=== PATIENT | female | born 1945 | race Caucasian/White ===

== ENCOUNTER → 2023-09-11 | Outpatient (REF) | payer MEDICARE, SELFPAY ==
[2023-09-11 09:44] LABS: Hematocrit 38.5 % (37-47); Hemoglobin 12.3 g/dL (12.0-15.0); Mean Corp Hgb Conc 31.9 g/dL (32-36); Mean Corpuscular Hgb 30.8 pg (27.0-32.0); Mean Corpuscular Volume 96.3 fL (81-99); Platelet Count 386 K/mm3 (150-450); RBC Distribution Width SD 53.2 fl (35.1-43.9); White Blood Count 6.9 K/mm3 (4.4-11.0)
[2023-09-11 10:26] LABS: ALB/GLOB Ratio 0.9 RATIO (0.9-2.4); AST(SGOT) 21 U/L (15-37); Alanine Aminotransfer ALT/SGPT 14 U/L (13-56); Albumin, Serum 3.2 g/dL (3.2-5.0); Alkaline Phosphatase 229 U/L (45-117); Anion Gap 6 (5-15); BUN 22 mg/dL (7-18); Calcium,Total 9.3 mg/dL (8.5-10.1); Chloride 100 mmol/L (98-107); Creatinine, Serum 0.84 mg/dL (0.55-1.02); EST Glomerular Filtration Rate 69 mL/min (>60); Est Glom Filt Rate - Afr Amer 84 mL/min (>60); Globulin 3.5 g/dL (2.2-4.2); Glucose 71 mg/dL (74-106); Potassium 3.5 mmol/L (3.5-5.1); Protein, Total 6.7 g/dL (6.4-8.2); Sodium Level 137 mmol/L (136-145)
== END ==
LOC: OLS.SANC 08:30
PROVIDERS: Visit Provider Internal Medicine
DX: E11.9 Type 2 diabetes mellitus without complications (principal); E03.9 Hypothyroidism, unspecified
CPT/HCPCS: 36415; 80053; 83036; 84443; 85027

== ENCOUNTER → 2023-09-12 | Outpatient (REF) | payer MEDICARE, SELFPAY ==
[2023-09-12 08:50] LABS: Hematocrit 35.3 % (37-47); Hemoglobin 11.5 g/dL (12.0-15.0); Mean Corp Hgb Conc 32.6 g/dL (32-36); Mean Corpuscular Hgb 31.3 pg (27.0-32.0); Mean Corpuscular Volume 96.2 fL (81-99); Platelet Count 343 K/mm3 (150-450); RBC Distribution Width SD 52.2 fl (35.1-43.9); Red Blood Count 3.67 M/mm3 (4.2-5.4); White Blood Count 5.8 K/mm3 (4.4-11.0)
[2023-09-12 09:58] LABS: ALB/GLOB Ratio 0.9 RATIO (0.9-2.4); AST(SGOT) 23 U/L (15-37); Alanine Aminotransfer ALT/SGPT 13 U/L (13-56); Albumin, Serum 2.9 g/dL (3.2-5.0); Alkaline Phosphatase 228 U/L (45-117); Anion Gap 8 (5-15); BUN 22 mg/dL (7-18); BUN/Creat Ratio 27.3 RATIO (10-20); Calcium,Total 8.9 mg/dL (8.5-10.1); Chloride 102 mmol/L (98-107); Creatinine, Serum 0.81 mg/dL (0.55-1.02); EST Glomerular Filtration Rate 73 mL/min (>60); Est Glom Filt Rate - Afr Amer 88 mL/min (>60); Globulin 3.1 g/dL (2.2-4.2); Glucose 36 mg/dL (74-106); Potassium 2.9 mmol/L (3.5-5.1); Sodium Level 139 mmol/L (136-145)
[2023-09-12 10:32] LABS: Hemoglobin A1c 8.1 % (3.8-5.6)
== END ==
LOC: OLS.SANC 05:00
PROVIDERS: Visit Provider Internal Medicine
DX: F03.90 Unspecified dementia, unspecified severity, without behavioral disturbance, psychotic disturbance, mood disturbance, and anxiety (principal); I10 Essential (primary) hypertension; Z79.899 Other long term (current) drug therapy
CPT/HCPCS: 36415; 80053; 83036; 84443; 85027

== ENCOUNTER → 2023-09-14 | Outpatient (REF) | payer MEDICARE, SELFPAY ==
[2023-09-14 08:27] LABS: Hematocrit 39.3 % (37-47); Hemoglobin 12.3 g/dL (12.0-15.0); Mean Corp Hgb Conc 31.3 g/dL (32-36); Mean Corpuscular Hgb 30.4 pg (27.0-32.0); Mean Platelet Vol. 8.8 fl (6.2-12.0); Platelet Count 385 K/mm3 (150-450); RBC Distribution Width CV 15.3 % (11.6-14.6); RBC Distribution Width SD 54.3 fl (35.1-43.9); Red Blood Count 4.05 M/mm3 (4.2-5.4)
[2023-09-14 08:59] LABS: Anion Gap 5 (5-15); BUN 25 mg/dL (7-18); BUN/Creat Ratio 30.6 RATIO (10-20); Calcium,Total 9.4 mg/dL (8.5-10.1); Chloride 104 mmol/L (98-107); Creatinine, Serum 0.82 mg/dL (0.55-1.02); EST Glomerular Filtration Rate 72 mL/min (>60); Est Glom Filt Rate - Afr Amer 87 mL/min (>60); Glucose 30 mg/dL (74-106); Potassium 4.1 mmol/L (3.5-5.1); Sodium Level 139 mmol/L (136-145)
== END ==
LOC: OLS.SANC 05:00
PROVIDERS: Visit Provider Internal Medicine
DX: E11.9 Type 2 diabetes mellitus without complications (principal); E03.9 Hypothyroidism, unspecified
CPT/HCPCS: 36415; 80048; 85027

== ENCOUNTER → 2023-09-20 | Outpatient (REF) | payer MEDICARE, SELFPAY ==
[2023-09-21 08:45] LABS: Bacteria 0 SEEN /hpf (None Seen); Mucous, Urine 0 SEEN /hpf (<or=2+)
[2023-09-21 09:01] LABS: Color, Urine Yellow (Yellow); Glucose, Dipstick 100 mg/dl (Normal); Ketone-Dipstick Negative (Negative); Leukocyte Esterase-Dipstick 25 /ul (Negative); Nitrite-Dipstick Negative (Negative); Occult Blood-Urine 10 /ul (Negative); Protein-Dipstick Negative (Negative); Specific Gravity, Urine 1.015 (1.002-1.030); Urine Bilirubin Dipstick Negative (Negative); Urine Clarity Clear (Clear); Urine Urobilinogen Normal (Normal); Urine pH 6.5 (5.0 - 8.0)
[2023-09-21 09:33] LABS: Red Blood Cells-Urine 0-5 SEEN /hpf (0-5); Squamous Epithelial Cells - UA 0-5 SEEN /hpf (5-10); White Blood Cells 0-5 SEEN /hpf (0-5)
== END ==
LOC: OLS.SANC 14:10
PROVIDERS: Visit Provider Internal Medicine
DX: N39.0 Urinary tract infection, site not specified (principal)
CPT/HCPCS: 81001; 87086; 87088

== ENCOUNTER → 2024-04-18 | Outpatient (REF) | payer MEDICARE, SELFPAY ==
[2024-04-18 09:26] LABS: Potassium 3.7 mmol/L (3.5-5.1)
== END ==
LOC: OLS.SANC 05:00
PROVIDERS: Visit Provider Internal Medicine
DX: E11.9 Type 2 diabetes mellitus without complications (principal); E03.9 Hypothyroidism, unspecified
CPT/HCPCS: 36415; 84132

== ENCOUNTER → 2024-04-29 | Outpatient (REF) | payer MEDICARE, SELFPAY ==
[2024-04-29 09:05] LABS: Hematocrit 35.8 % (37-47); Mean Corp Hgb Conc 30.7 g/dL (32-36); Mean Corpuscular Hgb 30.4 pg (27.0-32.0); Mean Corpuscular Volume 98.9 fL (81-99); Mean Platelet Vol. 9.2 fl (6.2-12.0); Platelet Count 252 K/mm3 (150-450); RBC Distribution Width CV 14.6 % (11.6-14.6); RBC Distribution Width SD 53.2 fl (35.1-43.9); Red Blood Count 3.62 M/mm3 (4.2-5.4); White Blood Count 4.9 K/mm3 (4.4-11.0)
[2024-04-29 09:51] LABS: Anion Gap 7 (5-15); BUN 16 mg/dL (7-18); BUN/Creat Ratio 18.8 RATIO (10-20); Calcium,Total 9.2 mg/dL (8.5-10.1); Chloride 101 mmol/L (98-107); Creatinine, Serum 0.85 mg/dL (0.55-1.02); EST Glomerular Filtration Rate 68 mL/min (>60); Est Glom Filt Rate - Afr Amer 83 mL/min (>60); Glucose 149 mg/dL (74-106); Potassium 3.4 mmol/L (3.5-5.1); Sodium Level 142 mmol/L (136-145)
== END ==
LOC: OLS.SANC 05:00
PROVIDERS: Visit Provider Internal Medicine
DX: E03.9 Hypothyroidism, unspecified (principal); F03.90 Unspecified dementia, unspecified severity, without behavioral disturbance, psychotic disturbance, mood disturbance, and anxiety; E11.9 Type 2 diabetes mellitus without complications
CPT/HCPCS: 36415; 80048; 84443; 85027

== ENCOUNTER → 2024-05-01 | Outpatient (REF) | payer MEDICARE, SELFPAY ==
[2024-05-01 07:34] LABS: Anion Gap 5 (5-15); BUN 23 mg/dL (7-18); BUN/Creat Ratio 28.1 RATIO (10-20); Calcium,Total 8.4 mg/dL (8.5-10.1); Chloride 102 mmol/L (98-107); Creatinine, Serum 0.82 mg/dL (0.55-1.02); EST Glomerular Filtration Rate 72 mL/min (>60); Est Glom Filt Rate - Afr Amer 87 mL/min (>60); Glucose 99 mg/dL (74-106); Potassium 3.3 mmol/L (3.5-5.1); Sodium Level 141 mmol/L (136-145)
== END ==
LOC: OLS.SANC 05:00
DX: E11.9 Type 2 diabetes mellitus without complications (principal); E03.9 Hypothyroidism, unspecified
CPT/HCPCS: 36415; 80048

== ENCOUNTER → 2024-05-05 | Outpatient (REF) | payer MEDICARE, SELFPAY ==
[2024-05-05 08:52] LABS: Anion Gap 7 (5-15); BUN 18 mg/dL (7-18); BUN/Creat Ratio 22.7 RATIO (10-20); Calcium,Total 9.4 mg/dL (8.5-10.1); Chloride 100 mmol/L (98-107); Creatinine, Serum 0.79 mg/dL (0.55-1.02); EST Glomerular Filtration Rate 75 mL/min (>60); Est Glom Filt Rate - Afr Amer 90 mL/min (>60); Glucose 58 mg/dL (74-106); Potassium 3.7 mmol/L (3.5-5.1); Sodium Level 139 mmol/L (136-145)
== END ==
LOC: OLS.SANC 04:00
DX: F03.90 Unspecified dementia, unspecified severity, without behavioral disturbance, psychotic disturbance, mood disturbance, and anxiety (principal); E11.9 Type 2 diabetes mellitus without complications; E03.9 Hypothyroidism, unspecified
CPT/HCPCS: 36415; 80048

== ENCOUNTER → 2024-05-16 | Outpatient (REF) | payer MEDICARE, SELFPAY ==
[2024-05-16 10:53] LABS: T4 Free Direct 1.04 ng/dL (0.76-1.46)
== END ==
LOC: OLS.SANC 05:00
PROVIDERS: Visit Provider Internal Medicine
DX: E11.9 Type 2 diabetes mellitus without complications (principal); E03.9 Hypothyroidism, unspecified
CPT/HCPCS: 36415; 84439; 84443

== ENCOUNTER → 2024-05-23 | Outpatient (REF) | payer MEDICARE, SELFPAY ==
[2024-05-23 08:57] LABS: Hemoglobin A1c 9.5 % (3.8-5.6)
== END ==
LOC: OLS.SANC 05:00
PROVIDERS: Visit Provider Internal Medicine
DX: E11.9 Type 2 diabetes mellitus without complications (principal)
CPT/HCPCS: 36415; 83036

== ENCOUNTER → 2024-06-13 | Outpatient (REF) | payer MEDICARE, SELFPAY ==
[2024-06-13 08:27] LABS: Hematocrit 29.5 % (37-47); Hemoglobin 9.5 g/dL (12.0-15.0); Mean Corp Hgb Conc 32.2 g/dL (32-36); Mean Corpuscular Hgb 30.5 pg (27.0-32.0); Mean Corpuscular Volume 94.9 fL (81-99); Mean Platelet Vol. 9.9 fl (6.2-12.0); Platelet Count 218 K/mm3 (150-450); RBC Distribution Width CV 12.8 % (11.6-14.6); RBC Distribution Width SD 44.7 fl (35.1-43.9); Red Blood Count 3.11 M/mm3 (4.2-5.4)
[2024-06-13 08:47] LABS: Anion Gap 4 (5-15); BUN 19 mg/dL (7-18); BUN/Creat Ratio 25.6 RATIO (10-20); Calcium,Total 8.9 mg/dL (8.5-10.1); Chloride 101 mmol/L (98-107); Creatinine, Serum 0.74 mg/dL (0.55-1.02); EST Glomerular Filtration Rate 80 mL/min (>60); Est Glom Filt Rate - Afr Amer 97 mL/min (>60); Glucose 178 mg/dL (74-106); Potassium 3.3 mmol/L (3.5-5.1); Sodium Level 137 mmol/L (136-145)
== END ==
LOC: OLS.SANC 05:00
DX: N39.0 Urinary tract infection, site not specified (principal); E11.9 Type 2 diabetes mellitus without complications; E03.9 Hypothyroidism, unspecified
CPT/HCPCS: 36415; 80048; 85027

== ENCOUNTER → 2024-06-23 | Outpatient (REF) | payer MEDICARE, SELFPAY ==
[2024-06-23 08:22] LABS: Hematocrit 31.6 % (37-47); Hemoglobin 10.4 g/dL (12.0-15.0); Mean Corp Hgb Conc 32.9 g/dL (32-36); Mean Corpuscular Hgb 30.3 pg (27.0-32.0); Mean Corpuscular Volume 92.1 fL (81-99); Mean Platelet Vol. 9.5 fl (6.2-12.0); Platelet Count 256 K/mm3 (150-450); RBC Distribution Width CV 13.9 % (11.6-14.6); RBC Distribution Width SD 46.9 fl (35.1-43.9); Red Blood Count 3.43 M/mm3 (4.2-5.4); White Blood Count 5.5 K/mm3 (4.4-11.0)
[2024-06-23 08:34] LABS: Anion Gap 4 (5-15); BUN 11 mg/dL (7-18); BUN/Creat Ratio 19.1 RATIO (10-20); Chloride 102 mmol/L (98-107); Creatinine, Serum 0.58 mg/dL (0.55-1.02); EST Glomerular Filtration Rate 108 mL/min (>60); Est Glom Filt Rate - Afr Amer 130 mL/min (>60); Glucose 203 mg/dL (74-106); Potassium 3.8 mmol/L (3.5-5.1); Sodium Level 137 mmol/L (136-145)
== END ==
LOC: OLS.SANC 05:00
PROVIDERS: Visit Provider Internal Medicine
DX: E11.9 Type 2 diabetes mellitus without complications (principal); E03.9 Hypothyroidism, unspecified
CPT/HCPCS: 36415; 80048; 85027

== ENCOUNTER → 2024-08-01 | Outpatient (REF) | payer MEDICARE, SELFPAY ==
[2024-08-01 08:25] LABS: Hematocrit 28.7 % (37-47); Hemoglobin 9.3 g/dL (12.0-15.0); Mean Corp Hgb Conc 32.4 g/dL (32-36); Mean Corpuscular Volume 89.4 fL (81-99); Mean Platelet Vol. 9.3 fl (6.2-12.0); Platelet Count 291 K/mm3 (150-450); RBC Distribution Width CV 14.2 % (11.6-14.6); RBC Distribution Width SD 46.5 fl (35.1-43.9); Red Blood Count 3.21 M/mm3 (4.2-5.4); White Blood Count 4.3 K/mm3 (4.4-11.0)
[2024-08-01 08:38] LABS: Anion Gap 3 (5-15); BUN 18 mg/dL (7-18); Calcium,Total 8.9 mg/dL (8.5-10.1); Chloride 100 mmol/L (98-107); Creatinine, Serum 0.72 mg/dL (0.55-1.02); EST Glomerular Filtration Rate 83 mL/min (>60); Est Glom Filt Rate - Afr Amer 101 mL/min (>60); Glucose 77 mg/dL (74-106); Potassium 3.3 mmol/L (3.5-5.1); Sodium Level 138 mmol/L (136-145)
== END ==
LOC: OLS.SANC 05:00
DX: F03.90 Unspecified dementia, unspecified severity, without behavioral disturbance, psychotic disturbance, mood disturbance, and anxiety (principal); E11.9 Type 2 diabetes mellitus without complications; I10 Essential (primary) hypertension
CPT/HCPCS: 36415; 80048; 85027

== ENCOUNTER → 2024-08-04 | Outpatient (REF) | payer MEDICARE, SELFPAY ==
[2024-08-04 08:11] LABS: Mucous, Urine 0 SEEN /hpf (<or=2+)
[2024-08-04 08:37] LABS: Color, Urine Yellow (Yellow); Glucose, Dipstick 1000 mg/dl (Normal); Ketone-Dipstick Negative (Negative); Leukocyte Esterase-Dipstick 100 /ul (Negative); Nitrite-Dipstick Negative (Negative); Occult Blood-Urine 10 /ul (Negative); Protein-Dipstick 15 mg/dl (Negative); Urine Bilirubin Dipstick Negative (Negative); Urine Clarity Sl. Cloudy (Clear); Urine Urobilinogen Normal (Normal)
[2024-08-04 08:45] LABS: Red Blood Cells-Urine 0-5 SEEN /hpf (0-5); Squamous Epithelial Cells - UA 0-5 SEEN /hpf (5-10); White Blood Cells 10-25 SEEN /hpf (0-5)
[2024-08-04 08:46] LABS: Bacteria 3+ /hpf (None Seen)
== END ==
LOC: OLS.SANC 03:30
DX: R33.9 Retention of urine, unspecified (principal); R41.82 Altered mental status, unspecified
CPT/HCPCS: 81001; 87077; 87086; 87088; 87186

== ENCOUNTER → 2024-08-06 | Outpatient (REF) | payer MEDICARE, SELFPAY ==
[2024-08-06 07:57] LABS: Ferritin 29 ng/mL (8-252); Iron 50 ug/dL (50-170)
[2024-08-06 09:49] LABS: Vitamin B12 157 pg/mL (211-911)
== END ==
LOC: OLS.SANC 05:00
PROVIDERS: Visit Provider Internal Medicine
DX: F03.90 Unspecified dementia, unspecified severity, without behavioral disturbance, psychotic disturbance, mood disturbance, and anxiety (principal); E11.9 Type 2 diabetes mellitus without complications; E03.9 Hypothyroidism, unspecified
CPT/HCPCS: 36415; 82607; 82728; 82746; 83540

== ENCOUNTER → 2024-08-08 05:00 | Outpatient (REF) | payer MEDICARE, SELFPAY ==
[2024-08-08 08:25] LABS: Hematocrit 30.6 % (37-47); Hemoglobin 9.4 g/dL (12.0-15.0); Mean Corp Hgb Conc 30.7 g/dL (32-36); Mean Corpuscular Hgb 27.6 pg (27.0-32.0); Mean Corpuscular Volume 89.7 fL (81-99); Mean Platelet Vol. 9.1 fl (6.2-12.0); Platelet Count 272 K/mm3 (150-450); RBC Distribution Width CV 14.3 % (11.6-14.6); RBC Distribution Width SD 46.5 fl (35.1-43.9); Red Blood Count 3.41 M/mm3 (4.2-5.4); White Blood Count 4.1 K/mm3 (4.4-11.0)
== END ==
LOC: OLS.SANC 05:00
DX: Z79.899 Other long term (current) drug therapy (principal)
CPT/HCPCS: 36415; 85027

== ENCOUNTER → 2024-08-09 | Outpatient (REF) | payer MEDICARE, SELFPAY | LOC: OLS.SANC 13:30 | DX: Z79.899 Other long term (current) drug therapy (principal) | CPT/HCPCS: 82274 ==

== ENCOUNTER → 2024-08-13 | Outpatient (REF) | payer MEDICARE, SELFPAY ==
[2024-08-13 09:13] LABS: Anion Gap 6 (5-15); BUN 14 mg/dL (7-18); BUN/Creat Ratio 23.9 RATIO (10-20); Chloride 101 mmol/L (98-107); Creatinine, Serum 0.59 mg/dL (0.55-1.02); EST Glomerular Filtration Rate 105 mL/min (>60); Est Glom Filt Rate - Afr Amer 127 mL/min (>60); Glucose 146 mg/dL (74-106); Potassium 3.6 mmol/L (3.5-5.1); Sodium Level 141 mmol/L (136-145)
== END ==
LOC: OLS.SANC 04:00
DX: E11.9 Type 2 diabetes mellitus without complications (principal)
CPT/HCPCS: 36415; 80048; 83036

== ENCOUNTER → 2024-10-08 | Outpatient (REF) | payer MEDICARE, SELFPAY | LOC: OLS.SANC 13:20 | DX: R19.7 Diarrhea, unspecified (principal) | CPT/HCPCS: 87493 ==

== ENCOUNTER → 2024-11-14 | Outpatient (REF) | payer MEDICARE, SELFPAY ==
[2024-11-14 09:05] LABS: Hemoglobin A1c 7.5 % (<=5.6)
[2024-11-14 09:11] LABS: Anion Gap 10 (5-15); BUN 17 mg/dL (4-19); BUN/Creat Ratio 23.7 RATIO (10-20); Calcium,Total 8.7 mg/dL (7.6-11.0); Carbon Dioxide 28.6 mmol/L (21.0-32.0); Chloride 101 mmol/L (98-108); Creatinine, Serum 0.73 mg/dL (0.70-1.20); EST Glomerular Filtration Rate 84 (>60); Glucose 125 mg/dL (70-99); Potassium 3.7 mmol/L (3.3-5.1); Sodium Level 140 mmol/L (133-145)
== END ==
LOC: OLS.SANC 05:00
DX: F03.90 Unspecified dementia, unspecified severity, without behavioral disturbance, psychotic disturbance, mood disturbance, and anxiety (principal); E11.9 Type 2 diabetes mellitus without complications; E78.5 Hyperlipidemia, unspecified; E03.9 Hypothyroidism, unspecified
CPT/HCPCS: 36415; 80048; 83036; 84443

== ENCOUNTER → 2024-11-20 | Outpatient (REF) | payer MEDICARE, SELFPAY ==
[2024-11-20 09:12] LABS: Hemoglobin A1c 7.6 % (<=5.6)
== END ==
LOC: OLS.SANC 05:00
PROVIDERS: Visit Provider Internal Medicine
DX: E11.9 Type 2 diabetes mellitus without complications (principal); E03.9 Hypothyroidism, unspecified
CPT/HCPCS: 36415; 83036

== ENCOUNTER → 2024-12-03 05:00 | Outpatient (REF) | payer MEDICARE, SELFPAY ==
[2024-12-03 09:58] LABS: Hematocrit 29.8 % (37-47); Hemoglobin 9.1 g/dL (12.0-15.0); Mean Corp Hgb Conc 30.5 g/dL (32-36); Mean Corpuscular Hgb 28.6 pg (27.0-32.0); Mean Corpuscular Volume 93.7 fL (81-99); Mean Platelet Vol. 9.4 fl (6.2-12.0); Platelet Count 222 K/mm3 (150-450); RBC Distribution Width CV 15.4 % (11.6-14.6); RBC Distribution Width SD 53.3 fl (35.1-43.9); Red Blood Count 3.18 M/mm3 (4.2-5.4); White Blood Count 3.7 K/mm3 (4.4-11.0)
[2024-12-03 10:14] LABS: Anion Gap 11 (5-15); BUN 22 mg/dL (4-19); BUN/Creat Ratio 26.7 RATIO (10-20); Calcium,Total 9.2 mg/dL (7.6-11.0); Carbon Dioxide 28.4 mmol/L (21.0-32.0); Chloride 98 mmol/L (98-108); Creatinine, Serum 0.82 mg/dL (0.70-1.20); EST Glomerular Filtration Rate 73 (>60); Glucose 165 mg/dL (70-99); Potassium 3.8 mmol/L (3.3-5.1); Sodium Level 137 mmol/L (133-145)
== END ==
LOC: OLS.SANC 05:00
PROVIDERS: Visit Provider Internal Medicine
DX: E11.9 Type 2 diabetes mellitus without complications (principal); E78.5 Hyperlipidemia, unspecified; E03.9 Hypothyroidism, unspecified
CPT/HCPCS: 36415; 80048; 85027

== ENCOUNTER → 2025-01-26 04:00 | Outpatient (REF) | payer MEDICARE, SELFPAY ==
[2025-01-26 09:33] LABS: Anion Gap 8 (5-15); BUN 19 mg/dL (4-19); BUN/Creat Ratio 24.5 RATIO (10-20); Calcium,Total 8.6 mg/dL (7.6-11.0); Carbon Dioxide 31.8 mmol/L (21.0-32.0); Chloride 101 mmol/L (98-108); Glucose 129 mg/dL (70-99); Potassium 3.7 mmol/L (3.3-5.1); Pro- Brain NATRIURETIC PEPTIDE 479 pg/mL (<=1800)
== END ==
LOC: OLS.SANC 04:00
DX: E11.9 Type 2 diabetes mellitus without complications (principal); E03.9 Hypothyroidism, unspecified; R48.8 Other symbolic dysfunctions
CPT/HCPCS: 36415; 80048; 83880

== ENCOUNTER → 2025-02-20 05:00 | Outpatient (REF) | payer MEDICARE, SELFPAY ==
--- OUTSIDE RECORDS SUMMARY | 2025-02-20 04:29 | XMS RPT_ITS | CCD ---
Author Organization [facility] Care Team Providers Care Head Grower Name Role Phone Unavailable Primary Care Provider UnavailIsaiah Kebede DO Primary Care Provider GILBERT HOWELL Attending Unavailable ELIA ANDRES Admitting Unavailable NEERU STEEL Attending Unavailable ALEXANDRA LOWE Consulting Unavailable ISAIAH ROLDAN Primary Care Unavailable BHARGAV ODMINGUEZ Attending Unavailable BHARGAV DOMINGUEZ Referring Unavailable ISAIAH ROLDAN Primary Care Unavailable ISAIAH ROLDAN Primary Care Unavailable ISAIAH GARDNER Admitting Unavailable BRANDON RUSH Attending Unavailable FRANKLIN IBARRA Consulting Unavailable KATIA, LALITA Referring Unavailable ISAIAH ROLDAN Primary Care Unavailable BRANDON RUSH Referring Unavailable ISAIAH ROLDAN Primary Care Unavailable Unavailable Primary Care Provider UnavailMARI Gomes Admitting Unavailable TIEN HAIRSTON Attending Unavailable ISAIAH ROLDAN Primary Care Unavailable SANDI TOTH Attending Unavailable Marina FLANNERY, Dr. Nj Attending Provider Unava Patricio Rossi Attending Provider UnavailDr. Ondina Acosta MD Referring Provider Unava ilPatricio Shearer Attending Provider Unavailab Edward FLANNERY, Dr. N[place] Attending Provider Gracielava Dr. Ondina Cordon MD Referring Provider Gracielava Cynthia Ramos MD Attending Provider Cynthia Uribe MD Referring Provider Unava hiable [facility] [place] Attending Rani oshea [facility] [place] Attending Ondina Isidro Attending Unavailable Ondina Hein Referring Unavailable Patricio Foy Attending Unavailable Cynthia Houston Attending Unavail able Cynthia Houston Referring Unavail able Katsaros GERONIMO, Patricio Attending Unavailable Gray OLS, Ondina Attending Unavailable Gray OLS, Ondina Attending Unavailable Katsaros OLS, Patricio Attending Unavailable Katsaros OLS, Patricio Attending Unavailable Gray OLS, Ondina Attending Unavailable Katsaros OLS, Patricio Attending Unavailable Gray OLS, Ondina Attending Unavailable Katsaros OLS, Patricio Attending Unavailable [place] OLS, Cynthia Attending Unavail able [place] OLS, Cynthia Referring Unavail able Gray OLS, Ondina Attending Unavailable Gray OLS, Ondina Referring Unavailable Gray OLS, Ondina Attending Unavailable Katsaros, Patricio Attending Unavailable Katsaros, Patricio Referring Unavailable [facility] [place] Attending Rani MELTON, Cynthia Attending Unavail able Katsaros OLS, Patricio Attending Unavailable Katsaros OLS, Patricoi Attending Unavailable Medications Current Medications Medication Drug Class(es) Dates Sig (Normalized) Sig (Original) amoxicillin 500 mg oral capsule (4 sources) Penicillin-class Antibacterial Start: 06-20-2024 End: 06-26-2024 take 1 capsule by mouth every eight hours amoxicillin (Amoxil) 500 MG capsule Take 1 capsule (500 mg) by mouth every 8 hours for 6 days. 18 capsule 06/20/2024 06/26/2024 Active Start: 06-16-2024 End: 06-20-2024 take 1 dose by mouth three times daily 500 mg, Oral, Every 8 hours scheduled (3 times per day), First dose on Sun06/16/24 at 1400, For 11 days, Suspected Indication (Select all that apply): Bloodstream Infection aspirin 81 mg chewable tablet (5 sources) Platelet Aggregation Inhibitor, Nonsteroidal Anti-inflammatory Drug Start: 04-17-2024 take 1 tablet by mouth once daily aspirin 81 mg chewable tablet 1 tablet by ORAL/FEEDING TUBE route once daily. Patient should start on April 17, 2024. 0 04/17/2024 Active take 1 tablet by mouth once jonathan y aspirin 81 MG EC tablet Take 81 mg by mouth daily. Active benzonatate 100 mg oral capsule (4 sources) Non-narcotic Antitussive Start: 06-14-2024 End: 06-27-2024 take 1 capsule by mouth three times daily as needed for cough benzonatate (Tessalon) 100 MG capsule Take 1 capsule (100 mg) by mouth 3 times daily as needed for cough for up to 7 days. Do not crush or chew. 20 capsule 06/20/2024 06/27/2024 Active bisacodyl 5 mg delayed release oral tablet (4 sources) Stimulant Laxative End: 06-20-2024 take 10 mg rectal route every twenty-four hours as needed for constipation bisacodyl (Dulcolax) 10 MG suppository Insert 10 mg into the rectum Daily as needed for constipation. 06/20/2024 Discontinued (Stop taking at discharge) take 1 tablet by marciano th every twenty-four hours as needed for constipation bisacodyl (Dulcolax) 5 MG EC tablet Take 5 mg by mouth Daily as needed for constipation. Do not crush, chew, or split. Active bumetanide 1 mg oral tablet (7 sources) Loop Diuretic Start: 06-08-2023 take 1 tablet by mouth once daily bumetanide (BUMEX) 1 mg tablet Take 1 mg by mouth once daily. 06/08/2023 Active clopidogrel 75 mg oral tablet (5 sources) P2Y12 Platelet Inhibitor Start: 04-17-2024 take 1 tablet by mouth once daily clopidogrel (PLAVIX) 75 mg tablet 1 tablet by ORAL/FEEDING TUBE route once daily. Patient should start on April 17, 2024. 0 04/17/2024 Active take 1 tablet by mouth once jonathan y clopidogrel (Plavix) 75 MG tablet Take 75 mg by mouth daily. Active dexamethasone 6 mg oral tablet (6 sources) Corticosteroid Start: 06-14-2024 End: 06-23-2024 take 1 tablet by mouth once daily dexAMETHasone (Decadron) 6 MG tablet Take 1 tablet (6 mg) by mouth daily for 2 doses. 2 tablet 06/21/2024 06/23/2024 Active Start: 06-13-2024 End: 06-13-2024 6 mg, IntraVENous, Once, On Sun06/13/24 at 2110, For 1 dose FREESTYLE MARIA EUGENIA 3 READER mis c (5 sources) Start: 12-10-2023 FREESTYLE LIBR E 3 READER misc 12/10/2023 Active Start: 12-10-2023 FREESTYLE LIBR E 3 READER misc FREESTYLE MARIA EUGENIA 3 SENSOR dev i (5 sources) Start: 12-04-2023 FREESTYLE LIBR E 3 SENSOR yuniel 12/04/2023 Active Start: 12-04-2023 FREESTYLE LIBR E 3 SENSOR yuniel 1.5 ml insulin glargine 300 unt/ml pen injector (13 sources) Insulin Analog Start: 06-20-2024 End: 07-20-2024 inject 25 [IU] by subcutaneous injection once daily insulin glargine (Toujeo SoloStar) 300 UNIT/ML injection Inject 25 Units under the skin Nightly. 3 mL 06/20/2024 07/20/2024 Active Start: 06-15-2024 End: 06-20-2024 inject 30 [IU] by subcutaneous injection once daily 30 Units, SubCUTAneous, Daily, First dose (after last modification) on 06/15/24 at 0900 Start: 06-14-2024 End: 06-15-2024 inject 25 [IU] by subcutaneous injection once daily 25 Units, SubCUTAneous, Daily, First dose on 06/14/24 at 0900 Start: 06-21-2023 inject 30 [IU] by kennedy bcutaneous injection twice daily TOUJEO SOLOSTAR U-300 INSULIN 300 unit/mL (1.5 mL) Inject 30 Units subcutaneously two times a day. 06/21/2023 Active End: 06-20-2024 inject 25 [IU] by subcutaneous injection once daily Insulin Glargine (TOUJEO SOLOSTAR SC) Inject 25 Units under the skin daily. 06/20/2024 Discontinued magnesium hydroxide 160 mg/ml oral suspension (2 sources) take 30 mL by mouth every twenty-four hours as needed for constipation magnesium hydroxide (Milk of Magnesia) 800 MG/5ML suspension Take 30 mL by mouth Daily as needed for constipation. Active midodrine hydrochloride 2.5 mg oral tablet (7 sources) alpha-Adrenergi c Agonist Start: 04-16-20 take 1 tablet by mouth three times daily midodrine (Proamatine) 2.5 MG tablet Take 2.5 mg by mouth 3 times a day. 04/16/2024 Active Start: 04-16-2024 take 1 tablet by marciano th every eight hours midodrine (PROAMATINE) 2.5 mg tablet Take 1 tablet by mouth every 8 hours. 04/16/2024 Active Start: 09-07-2023 take 1 tablet by marciano th every eight hours midodrine (PROAMITINE) 5 mg tablet Take 1 tablet by mouth every 8 hours. 60 tablet 09/07/2023 Active ondansetron 4 mg disintegrating oral tablet (4 sources) Serotonin-3 Receptor Antagonist Start: 06-20-2024 End: 06-27-2024 take 1 tablet by mouth every eight hours as needed for nausea and vomiting ondansetron ODT (Zofran-ODT) 4 MG disintegrating tablet Take 1 tablet (4 mg) by mouth every 8 hours as needed for nausea or vomiting for up to 7 days. 20 tablet 06/20/2024 06/27/2024 Active take 1 tablet by marciano th every eight hours as needed for nausea and vomiting ondansetron (Zofran) 4 MG tablet Take 4 mg by mouth every 8 hours as needed for nausea or vomiting. Active pioglitazone 30 mg oral tablet (7 sources) Peroxisome Proliferator Receptor alpha Agonist, Peroxisome Proliferator Receptor gamma Agonist, Thiazolidinedione Start: 07-26-2023 take 1 tablet by mouth once daily pioglitazone (ACTOS) 30 mg tablet Take 30 mg by mouth once daily. 07/26/2023 Active vitamin b12 1 mg oral tablet (3 sources) Vitamin B12 Start: 04-16-2024 take 1 tablet by mouth every other day cyanocobalamin (VITAMIN B-12) 1,000 mcg tab Take 1 tablet by mouth every other day. 0 04/16/2024 Active Completed/Discontinued Medications Medication Drug Class(es) Dates Sig (Normalized) Sig (Original) Acetaminophen (11 sources) Start: 06-14-2024 End: 06-20-2024 take 1 tablet by mouth every six hours as needed for pain and fever acetaminophen (Tylenol) tablet 650 mg Start: 06-13-2024 End: 06-13-2024 650 mg, Oral, Once, On Sun08/13/23 at 1835, For 1 dose, Maximum dose of acetaminophen is 4000 mg from all sources in 24 hours. Start: 04-16-2024 take 1 tablet by marciano th every four hours as needed acetaminophen (TYLENOL) 325 mg tablet Take 1 tablet by mouth every 4 hours as needed for pain or fever (specify temp.). 0 04/16/2024 Active Start: 09-07-2023 take 2 tablets by mo [facility] every eight hours acetaminophen (TYLENOL) 500 mg tablet Take 2 tablets by mouth every 8 hours. 30 tablet 09/07/2023 Active take 2 tablets by mo [facility] every six hours as needed for pain acetaminophen (Tylenol) 325 MG tablet Take 650 mg by mouth every 6 hours as needed for mild pain (1-3). Active atorvastatin 40 mg oral tablet (7 sources) HMG-CoA Reductase Inhibitor Start: 06-14-2024 End: 06-20-2024 take 40 mg by mouth once daily 40 mg, Oral, Daily, First dose on 06/14/24 at 0900 Start: 04-16-2024 take 1 tablet by marciano once daily at bedtime atorvastatin (LIPITOR) 40 mg tablet 1 tablet by ORAL/FEEDING TUBE route daily at bedtime. 0 04/16/2024 Active 24 hr buPROPion hydrochloride 150 mg extended release oral tablet (9 sources) Aminoketone Start: 07-19-2023 End: 06-20-2024 take 150 mg by mouth once daily 150 mg, Oral, Daily, First dose on 06/14/24 at 0900, Do not crush, chew, or split. cefTRIAXone (Rocephin) 2,000 mg in sodium chloride 0.9 % 50 mL IVPB Mini-Bag Plus (2 sources) Start: 06-13-2024 End: 06-13-2024 2,000 mg, IntraVENous, at 100 mL/hr, Administer over 30 Minutes, Once, On Sun06/13/24 at 1930, For 1 dose, Mini-Bag Plus bag, Suspected Indication (Select all that apply): Urinary Tract Infection cholecalciferol 9.52 unt/ml / glucose 357 mg/ml oral gel (2 sources) Vitamin D Start: 06-14-2024 End: 06-20-2024 0.4 ml enoxaparin sodium 100 mg/ml prefilled syringe (2 sources) Low Molecular Weight Heparin Start: 06-14-2024 End: 06-20-2024 inject 40 mg by subcutaneous injection every twenty-four hours 40 mg, SubCUTAneous, Every 24 hours scheduled (Daily), First dose on 06/14/24 at 0900, Indication of Use: Prophylaxis-DVT/PE , Indications: Prophylaxis of Venous Thromboembolism glucagon (rdna) 1 mg injection (4 sources) Antihypoglycemic Agent Start: 06-14-2024 End: 06-20-2024 Glucagon 1 MG/0. 2ML solution Inject under the skin. Active 150 ml glucose 50 mg/ml inje ction (6 sources) Start: 06-14-2024 End: 06-20-2024 Start: 06-14-2024 End: 06-20-2024 glucose (Glutose ) 40 % gel oral gel Take 15 g by mouth every 15 minutes as needed for low blood sugar. Active insulin lispro 100 unt/ml injectable solution (5 sources) Insulin Analog Start: 06-14-2024 End: 06-14-2024 inject 10 [IU] by subcutaneous injection once 10 Units, SubCUTAneous, Once, On 06/14/24 at 1800, For 1 dose Start: 04-16-2024 insulin lispro 100 unit/mL injection ADMINISTER CORRECTIONAL INSULIN REGARDLESS OF MEAL OR NUTRITION INTAKE Scale 1 If Blood Glucose (mg/dL) is: Less than 110 Give 0 units 111-150 Give 0 units 151-200 Give 1 unit 201-250 Give 2 units 251-300 Give 3 units 301-350 Give 4 units 351-400 Give 5 units Greater than 400 Give 5 units and Notify Provider Notify provider if 2 consecutive blood glucose values in the previous 24 hours are greater than 250 mg/dL and there have been no changes to the insulin regimen in the previous 24 hours. 0 04/16/2024 Active Insulin Lispro (Humalog) injection 0-18 Units (2 sources) Start: 06-15-2024 End: 06-20-2024 Insulin Lispro (Humalog) injection 0-18 Units iopamidol (Isovue-370) 76 % injection 75 mL (2 sources) Start: 06-13-2024 End: 06-13-2024 take 75 mL intravenously once as needed 75 mL, IntraVENous, IMG once PRN, contrast, Starting on Sun06/13/24 at 1827, For 1 dose levothyroxine (9 sources) l-Thyrox ine Start: 06-14-2024 End: 06-20-2024 take 175 ug by mouth once daily before breakfast 175 mcg, Oral, Daily before breakfast, First dose on 06/14/24 at 0615, Tube feeding (TF) interaction, obtain physician order to manage, recommend holding TF for 30 minutes before and after dose. Start: 04-17-2024 take 1 tablet by marciano th once daily before breakfast levothyroxine (SYNTHROID) 175 mcg tablet Take 1 tablet by mouth daily before breakfast. Patient should start on April 17, 2024. 04/17/2024 Active Start: 06-20-2023 take 1 tablet by marciano th once daily before breakfast levothyroxine (SYNTHROID) 150 mcg tablet Take 150 mcg by mouth daily before breakfast. 06/20/2023 Active ondansetron ODT (Zofran-ODT) disintegrating tablet 4 mg (2 sources) Start: 06-14-2024 End: 06-20-2024 take 1 tablet by mouth every eight hours as needed for nausea and vomiting ondansetron ODT (Zofran-ODT) disintegrating tablet 4 mg piperacillin-tazoba ctam (Zosyn) 3,375 mg in sodium chloride 0.9 % 50 mL IVPB Mini-Bag Plus (2 sources) Start: 06-14-2024 End: 06-16-2024 take 3375 mg intravenously every eight hours polyethylene glycol 3350 37062 mg powder for oral solution (2 sources) Osmotic Laxative Start: 06-14-2024 End: 06-20-2024 take 17 g by mouth every twenty-four hours as needed for constipation 17 g, Oral, Daily PRN, constipation, Starting on 06/14/24 at 0111, 1st line for treatment of constipation - give scheduled if no bowel movement in past 24 hours. promethazine hydrochloride 25 mg rectal suppository (2 sources) Phenothiazine End: 06-20-2024 take 25 mg rectal route every eight hours as needed for nausea and vomiting promethazine (Phenergan) 25 MG suppository Insert 25 mg into the rectum every 8 hours as needed for nausea or vomiting. 06/20/2024 Discontinued (Stop taking at discharge) 1000 ml sodium chloride 9 mg/ml injection (6 sources) Start: 06-14-2024 End: 06-20-2024 take 150 mL intravenously every hour 150 mL/hr, IntraVENous, Continuous, Starting on 06/14/24 at 0145 Start: 06-13-2024 End: 06-20-2024 30 mL, IntraVENous, at 180 m L/hr, Administer over 10 Minutes, PRN, for Remdesivir line flush, Starting on Sun06/13/24 at 2105, For 1 dose Start: 06-13-2024 End: 06-13-2024 1,000 mL, IntraVENous, at 1, 000 mL/hr, Administer over 1 Hours, Once, On Sun06/13/24 at 1835, For 1 dose 24 hr venlafaxine 37.5 mg extended release oral capsule (9 sources) Serotonin and Norepinephrine Reuptake Inhibitor Start: 06-08-2023 End: 06-20-2024 take 1 capsule by mouth once daily 37.5 mg, Oral, Daily, First dose on Sun06/14/24 at 0900, Capsule may be swallowed whole, or may be opened and its contents sprinkled on applesauce if consumed immediately without chewing. Do not crush or chew. Problems Active Problems Problem Classification Problem Date Documented Date Episodic/Chronic Acute cerebrovascular disease (4 sources) Cerebrovascular accident; Translations: [Other cerebral infarction due to occlusion or stenosis of small artery] Onset: 04-15-2024 04-15-2024 Chronic Blindness and vision defects (3 sources) Visual impairment; Translations: [Unqualified visual loss, left eye, normal vision right eye] Onset: 04-15-2024 04-15-2024 Chronic Chronic kidney disease (1 source) Chronic kidney disease, stage 1; Translations: [Stage 1 chronic kidney disease] Onset: 08-31-2023 Chronic Delirium, dementia, and amnestic and other cognitive disorders (4 sources) Moderate dementia; Translations: [Moderate dementia] Onset: 04-15-2024 04-15-2024 Chronic Diabetes mellitus with complications (1 source) Type 2 diabetes mellitus with hyperglycemia; Translations: [Hyperglycemia due to diabetes mellitus (HCC)] Onset: 04-12-2024 Chronic Diabetes mellitus without complication (2 sources) Type 2 diabetes mellitus without complications; Translations: [Type 2 diabetes mellitus without complications] Onset: 12-12-2024 Chronic Diabetes mellitus without complication (3 sources) Hyperglycemia; Translations: [Hyperglycemia, unspecified] Onset: 04-12-2024 04-12-2024 Episodic Disorders of lipid metabolism (2 sources) Hyperlipidemia, unspecified; Translations: [Hyperlipidemia, unspecified] Onset: 12-12-2024 Chronic E Codes: Fall (2 sources) Unspecified fall, initial encounter; Translations: [Fall on same level, unspecified, initial encounter] Onset: 08-31-2023 Episodic Fever of unknown origin (4 sources) Fever; Translations: [Fever, unspecified] Onset: 06-13-2024 06-13-2024 Episodic Fluid and electrolyte disorders (1 source) Hypokalemia; Translations: [Hypokalemia] Onset: 04-12-2024 Episodic Nausea and vomiting (4 sources) Nausea, vomiting and diarrhea; Translations: [Nausea with vomiting, unspecified] Onset: 06-13-2024 06-13-2024 Episodic Nutritional deficiencies (5 sources) Deficiency of macronutrients; Translations: [Unspecified severe protein-calorie malnutrition] Onset: 09-04-2023 09-06-2023 Chronic Other endocrine disorders (1 source) Hypoglycemia, unspecified; Translations: [Hypoglycemia] Onset: 07-15-2023 Chronic Other lower respiratory disease (2 sources) Chest pain on breathing; Translations: [Chest pain on breathing] 12-13-2023 Episodic Other nervous system disorders (3 sources) Polyneuropathy; Translations: [Polyneuropathy, unspecified] Onset: 04-15-2024 04-15-2024 Chronic Other nervous system disorders (3 sources) Abnormal gait; Translations: [Unspecified abnormalities of gait and mobility] Onset: 04-15-2024 04-15-2024 Episodic Other nervous system disorders (1 source) Other symbolic dysfunctions; Translations: [Other symbolic dysfunctions] Onset: 02-16-2025 Episodic Thyroid disorders (6 sources) Hypothyroidism; Translations: [Hypothyroidism, unspecified] Onset: 04-15-2024 04-15-2024 Chronic Viral infection (6 sources) Disease caused by 2019-nCoV; Translations: [COVID-19] Onset: 06-13-2024 06-13-2024 Episodic Viral infection (2 sources) COVID-19; Translations: [COVID-19] Onset: 06-13-2024 Past or Other Problems Problem Classification Problem Date Documented Da te Episodic/Chronic Malaise and fatigue (5 sources) Asthenia; Translations: [Weakness] Onset: 08-31-2023 09-06-2023 Episodic Nonspecific chest pain (2 sources) Musculoskeletal chest pain; Translations: [Other chest pain] Onset: 12-13-2023 12-13-2023 Episodic Other aftercare (2 sources) Other fdc (current) drug therapy; Translations: [Other fdc (current) drug therapy] Onset: 08-20-2024 Episodic Other gastrointestinal disorders (3 sources) Diarrhea, unspecified; Translations: [Diarrhea, unspecified] Onset: 06-13-2024 Episodic Other lower respiratory disease (1 source) Chest pain on breathing; Translations: [Chest pain on breathing] Onset: 12-13-2023 Episodic Other non-traumatic joint disorders (1 source) Effusion, left knee; Translations: [Effusion of left knee] Onset: 08-31-2023 Episodic Other non-traumatic joint disorders (1 source) Pain in right elbow; Translations: [Right elbow pain] Onset: 08-31-2023 Episodic Residual codes; unclassified (1 source) Altered mental status, unspecified; Translations: [Altered mental status, unspecified] Onset: 08-22-2024 Episodic Sprains and strains (1 source) Strain of muscle, fascia and tendon at neck level, initial encounter; Translations: [Strain of neck muscle, initial encounter] Onset: 08-31-2023 Episodic Superficial injury; contusion (1 source) Contusion of scalp, initial encounter; Translations: [Hematoma of scalp, initial encounter] Onset: 08-31-2023 Episodic Urinary tract infections (5 sources) Pyelonephritis; Translations: [Tubulo-interstitial nephritis, not specified as acute or chronic] Onset: 06-13-2024 06-13-2024 Episodic Results Test Name Value Interpretation Reference Range Facility Basic Metabolic Profile (BMP )on 01-26-2025 BUN/CRE 24.5 RATIO High 10-[address] [facility] Comment on above: Order Comment: 305.1 Performed By: #### L 500.2500, [id number] #### [facility] [address] [place], [place], [id number] ([phone] Calcium [Mass/Vol] 8.6 mg/dL Normal 7.6-11.0 [facility] Comment on above: Order Comment: 305.1 Performed By: #### L 500.2500, [id number] #### [facility] [address] [place], [address] Chloride [Moles/Vol] 101 mmol/L Normal 98-108 [facility] Comment on above: Order Comment: 305.1 Performed By: #### L 500.2500, [id number] #### [facility] [address] [place], [address] CO2 [Moles/Vol] 31.8 mmol/L Normal 21.0-32.[address] [facility] Comment on above: Order Comment: 305.1 Performed By: #### L 500.2500, [id number] #### [facility] [address] [place], [address] Creatinine [Mass/Vol] 0.77 mg/dL Normal 0.70-1.20 [facility] Comment on above: Order Comment: 305.1 Performed By: #### L 500.2500, [id number] #### [facility] [address] [place], [address] GAP 8 Normal 5-[address] [facility] Comment on above: Order Comment: 305.1 Performed By: #### L 500.2500, [id number] #### [facility] [address] [place], [address] GFR/1.73 sq M.predicted among non-blacks MDRD (S/P/Bld) [Vol rate/Area] 78 mL/min/{1.73_m2} Normal >[address] [facility] Comment on above: Order Comment: 305.1 Result Comment: mL/m in/1.73m2 CKD-EPI Creatinine Equation (2020) Performed By: #### L 500.2500, [id number] #### [facility] [address] [place], [address] Glucose [Mass/Vol] 129 mg/dL High 70-99 [facility] Comment on above: Order Comment: 305.1 Performed By: #### L 500.2500, [id number] #### [facility] [address] [place], [address] Potassium [Moles/Vol] 3.7 mmol/L Normal 3.3-5.1 [facility] Comment on above: Order Comment: 305.1 Performed By: #### L 500.2500, [id number] #### [facility] [address] [place], [address] Sodium [Moles/Vol] 141 mmol/L Normal 133-145 [facility] Comment on above: Order Comment: 305.1 Performed By: #### L 500.2500, [id number] #### [facility] [address] [place], [address] Urea nitrogen [Mass/Vol] 19 mg/dL Normal 4-[address] [facility] Comment on above: Order Comment: 305.1 Performed By: #### L 500.2500, [id number] #### [facility] [address] [place], [address] [id number] 01-26-2025 Natriuretic peptide B (Bld) [Mass/Vol] 479 pg/mL Normal <=[address] [facility] Comment on above: Order Comment: 305.1 Result Comment: Hear t Failure Unlikely: < 300 pg/mL Heart Failure Likely < 50 Years: > 450 pg/mL 50-75 Years: > 900 pg/mL >75 Years: > 1800 pg/mL Performed By: #### L 500.2500, [id number] #### [facility] [address] [place], [address] Basic Metabolic Profile (BMP )on 12-03-2024 BUN/CRE 26.7 RATIO High 10-[address] [facility] Comment on above: Order Comment: 304-1 Performed By: #### L 500.2500, L100.0500 #### [facility] [address] [place], [address] Calcium [Mass/Vol] 9.2 mg/dL Normal 7.6-11.0 [facility] Comment on above: Order Comment: 304-1 Performed By: #### L 500.2500, L100.0500 #### [facility] [address] [place], [address] Chloride [Moles/Vol] 98 mmol/L Normal 98-108 [facility] Comment on above: Order Comment: 304-1 Performed By: #### L 500.2500, L100.0500 #### [facility] [address] [place], [address] CO2 [Moles/Vol] 28.4 mmol/L Normal 21.0-32.[address] [facility] Comment on above: Order Comment: 304-1 Performed By: #### L 500.2500, L100.0500 #### [facility] [address] [place], [address] Creatinine [Mass/Vol] 0.82 mg/dL Normal 0.70-1.20 [facility] Comment on above: Order Comment: 304-1 Performed By: #### L 500.2500, L100.0500 #### [facility] [address] [place], [address] GAP 11 Normal 5-[address] [facility] Comment on above: Order Comment: 304-1 Performed By: #### L 500.2500, L100.0500 #### [facility] [address] [place], [address] GFR/1.73 sq M.predicted among non-blacks MDRD (S/P/Bld) [Vol rate/Area] 73 mL/min/{1.73_m2} Normal >[address] [facility] Comment on above: Order Comment: 304-1 Result Comment: mL/m in/1.73m2 CKD-EPI Creatinine Equation (2020) Performed By: #### L 500.2500, L100.0500 #### [facility] [address] [place], [address] Glucose [Mass/Vol] 165 mg/dL High 70-99 [facility] Comment on above: Order Comment: 304-1 Performed By: #### L 500.2500, L100.0500 #### [facility] [address] [place], [address] Potassium [Moles/Vol] 3.8 mmol/L Normal 3.3-5.1 [facility] Comment on above: Order Comment: 304-1 Performed By: #### L 500.2500, L100.0500 #### [facility] [address] [place], [address] Sodium [Moles/Vol] 137 mmol/L Normal 133-145 [facility] Comment on above: Order Comment: 304-1 Performed By: #### L 500.2500, L100.0500 #### [facility] [address] [place], [address] Urea nitrogen [Mass/Vol] 22 mg/dL High 4-[address] [facility] Comment on above: Order Comment: 304-1 Performed By: #### L 500.2500, L100.0500 #### [facility] [address] [place], [address] CBC-Complete Blood Cnt No Di ffon 12-03-2024 Erythrocyte distribution width (RBC) [Ratio] 15.4 % High 11.6-14.[address] [facility] Comment on above: Order Comment: 304-1 Performed By: #### L 500.2500, L100.0500 #### [facility] [address] [place], [address] Hematocrit (Bld) [Volume fraction] 29.8 % Low 37-[address] [facility] Comment on above: Order Comment: 304-1 Performed By: #### L 500.2500, L100.0500 #### [facility] [address] [place], [address] Hemoglobin (Bld) [Mass/Vol] 9.1 g/dL Low 12.0-15.[address] [facility] Comment on above: Order Comment: 304-1 Performed By: #### L 500.2500, L100.0500 #### [facility] [address] [place], [address] MCH (RBC) [Entitic mass] 28.6 pg Normal 27.0-32.[address] [facility] Comment on above: Order Comment: 304-1 Performed By: #### L 500.2500, L100.0500 #### [facility] [address] [place], [address] MCHC (RBC) [Mass/Vol] 30.5 g/dL Low 32-36 [facility] Comment on above: Order Comment: 304-1 Performed By: #### L 500.2500, L100.0500 #### [facility] [address] [place], [address] MCV (RBC) [Entitic vol] 93.7 fL Normal 81-99 [facility] Comment on above: Order Comment: 304-1 Performed By: #### L 500.2500, L100.0500 #### [facility] [address] [place], [address] Platelet mean volume (Bld) [Entitic vol] 9.4 fL Normal 6.2-12.[address] [facility] Comment on above: Order Comment: 304-1 Performed By: #### L 500.2500, L100.0500 #### [facility] [address] [place], [address] Platelets (Bld) [#/Vol] 222 10*3/uL Normal 150-[address] [facility] Comment on above: Order Comment: 304-1 Performed By: #### L 500.2500, L100.0500 #### [facility] [address] [place], [address] RBC (Bld) [#/Vol] 3.18 10*6/uL Low 4.2-5.4 [facility] Comment on above: Order Comment: 304-1 Performed By: #### L 500.2500, L100.0500 #### [facility] [address] [place], [address] RDW SD 53.3 fl High 35.1-43.[address] [facility] Comment on above: Order Comment: 304-1 Performed By: #### L 500.2500, L100.0500 #### [facility] [address] [place], [address] WBC (Bld) [#/Vol] 3.7 10*3/uL Low 4.4-11.0 [facility] Comment on above: Order Comment: 304-1 Performed By: #### L 500.2500, L100.0500 #### [facility] [address] [place], [address] Hemoglobin A1con 11-20-2024 HbA1c (Bld) [Mass fraction] 7.6 % High <=5.[address] [facility] Comment on above: Order Comment: 304-1 Result Comment: Norm al < 5.7 % Prediabetic 5.7 - 6.4 % Diabetic >or= 6.5 % Please note range changes. Performed By: #### L 500.2500, L100.0500 #### [facility] [address] [place], [address] Basic Metabolic Profile (BMP )on 11-14-2024 BUN/CRE 23.7 RATIO High 10-[address] [facility] Comment on above: Order Comment: 305.1 Performed By: #### M 100.2200, L400.0001 #### [facility] [address] [place], [address] Calcium [Mass/Vol] 8.7 mg/dL Normal 7.6-11.0 [facility] Comment on above: Order Comment: 305.1 Performed By: #### M 100.2200, L400.0001 #### [facility] [address] [place], [address] Chloride [Moles/Vol] 101 mmol/L Normal 98-108 [facility] Comment on above: Order Comment: 305.1 Performed By: #### M 100.2200, L400.0001 #### [facility] [address] [place], [address] CO2 [Moles/Vol] 28.6 mmol/L Normal 21.0-32.[address] [facility] Comment on above: Order Comment: 305.1 Performed By: #### M 100.2200, L400.0001 #### [facility] [address] [place], [address] Creatinine [Mass/Vol] 0.73 mg/dL Normal 0.70-1.20 [facility] Comment on above: Order Comment: 305.1 Performed By: #### M 100.2200, L400.0001 #### [facility] [address] [place], [address] GAP 10 Normal 5-[address] [facility] Comment on above: Order Comment: 305.1 Performed By: #### M 100.2200, L400.0001 #### [facility] [address] [place], [address] GFR/1.73 sq M.predicted among non-blacks MDRD (S/P/Bld) [Vol rate/Area] 84 mL/min/{1.73_m2} Normal >[address] [facility] Comment on above: Order Comment: 305.1 Result Comment: mL/m in/1.73m2 CKD-EPI Creatinine Equation (2020) Performed By: #### M 100.2200, L400.0001 #### [facility] [address] [place], [address] Glucose [Mass/Vol] 125 mg/dL High 70-99 [facility] Comment on above: Order Comment: 305.1 Performed By: #### M 100.2200, L400.0001 #### [facility] [address] [place], [address] Potassium [Moles/Vol] 3.7 mmol/L Normal 3.3-5.1 [facility] Comment on above: Order Comment: 305.1 Performed By: #### M 100.2200, L400.0001 #### [facility] [address] [place], [address] Sodium [Moles/Vol] 140 mmol/L Normal 133-145 [facility] Comment on above: Order Comment: 305.1 Performed By: #### M 100.2200, L400.0001 #### [facility] [address] [place], [address] Urea nitrogen [Mass/Vol] 17 mg/dL Normal 4-[address] [facility] Comment on above: Order Comment: 305.1 Performed By: #### M 100.2200, L400.0001 #### [facility] [address] [place], [address] Hemoglobin A1con 11-14-2024 HbA1c (Bld) [Mass fraction] 7.5 % High <=5.[address] [facility] Comment on above: Order Comment: 305.1 Result Comment: Norm al < 5.7 % Prediabetic 5.7 - 6.4 % Diabetic >or= 6.5 % Please note range changes. Performed By: #### M 100.2200, L400.0001 #### [facility] [address] [place], [address] Thyroid Stim Hormone (TSH)on 11-14-2024 TSH 1.800 uIU/mL Normal 0.300-4.[address] [facility] Comment on above: Order Comment: 305.1 Performed By: #### M 100.2200, L400.0001 #### [facility] [address] [place], [address] CDIFF (PCR)on 10-09-2024 CDIFF Pending [phone] Presumptive Negative *for epidemiolologic???us e C. Diff PCR Negative- No toxigenic C. Diff Detected Normal [facility] Comment on above: Performed By: #### L 500.2500, L100.0500 #### [facility] [address] [place], [address] C. difficile DNA RAMILA+probe Q l (Unsp spec)Ordered By: Cynthia Espino on 10-08-2024 Clostridioides difficile (PCR) [facility] Basic Metabolic Profile (BMP )on 08-13-2024 BUN/CRE 23.9 RATIO High 10-[address] [facility] Comment on above: Order Comment: 405.1 Performed By: #### M 100.2200, L400.0001 #### [facility] [address] [place], [address] CA,Total 9.0 mg/dL Normal 8.5-10.[address] [facility] Comment on above: Order Comment: 405.1 Performed By: #### M 100.2200, L400.0001 #### [facility] [address] [place], [address] Chloride [Moles/Vol] 101 mmol/L Normal 98-107 [facility] Comment on above: Order Comment: 405.1 Performed By: #### M 100.2200, L400.0001 #### [facility] [address] [place], [address] CO2 [Moles/Vol] 34.0 mmol/L High 21.0-32.[address] [facility] Comment on above: Order Comment: 405.1 Performed By: #### M 100.2200, L400.0001 #### [facility] [address] [place], [address] Creatinine [Mass/Vol] 0.59 mg/dL Normal 0.55-1.02 [facility] Comment on above: Order Comment: 405.1 Result Comment: The validity of the calculated GFR GFRAA in patients over 70 years has not been determined. Clinical correlation is essential. Performed By: #### M 100.2200, L400.0001 #### [facility] [address] [place], [address] EST GFR - AA 127 mL/min Normal >[address] [facility] Comment on above: Order Comment: 405.1 Result Comment: Afri can Sudanese GFR Calc Performed By: #### M 100.2200, L400.0001 #### [facility] [address] [place], [address] GAP 6 Normal 5-[address] [facility] Comment on above: Order Comment: 405.1 Performed By: #### M 100.2200, L400.0001 #### [facility] [address] [place], [address] GFR/1.73 sq M.predicted among non-blacks MDRD (S/P/Bld) [Vol rate/Area] 105 mL/min/{1.73_m2} Normal >[address] [facility] Comment on above: Order Comment: 405.1 Result Comment: Non- GFR Calc Performed By: #### M 100.2200, L400.0001 #### [facility] [address] [place], [address] Glucose [Mass/Vol] 146 mg/dL High 74-106 [facility] Comment on above: Order Comment: 405.1 Result Comment: Fast ing Glucose result greater than or equal to 126 mg/dL suggests DIABETES MELLITUS per A.D.A. criteria. Performed By: #### M 100.2200, L400.0001 #### [facility] [address] [place], [address] Potassium [Moles/Vol] 3.6 mmol/L Normal 3.5-5.1 [facility] Comment on above: Order Comment: 405.1 Performed By: #### M 100.2200, L400.0001 #### [facility] [address] [place], [address] Sodium [Moles/Vol] 141 mmol/L Normal 136-145 [facility] Comment on above: Order Comment: 405.1 Performed By: #### M 100.2200, L400.0001 #### [facility] [address] [place], [address] Urea nitrogen [Mass/Vol] 14 mg/dL Normal 7-[address] [facility] Comment on above: Order Comment: 405.1 Performed By: #### M 100.2200, L400.0001 #### [facility] [address] [place], [address] Blood urea nitrogen (BUN)/cr eatinine ratioOrdered By: Ondina Gray on 08-13-2024 Urea nitrogen/Creatinine [Mass ratio] 23.9 mg/mg High 10-[address] [facility] Carbon dioxide measurementOr dered By: Ondina Gray on 08-13-2024 CO2 [Moles/Vol] 34.0 mmol/L High 21.0-32.[address] [facility] Chloride measurementOrdered By: Ondina Gray on 08-13-2024 Chloride [Moles/Vol] 101 mmol/L 98-107 [facility] Estimated glomerular filtrat ion rate (GFR) AmericanOrdered By: Ondina Gray on 08-13-2024 Estimated GFR (MDRD) Amer 127 mL/min >[address] [facility] Comment on above: GFR Calc Glomerular filtration rate ( GFR) estimationOrdered By: Ondina Gray on 08-13-2024 Estimated GFR (MDRD) Non-Af Amer 105 mL/min >[address] [facility] Comment on above: Non- GFR Calc Glucose measurementOrdered B y: Ondina Gray on 08-13-2024 Glucose [Mass/Vol] 146 mg/dL High 74-106 [facility] Comment on above: Fasting Glucose resu lt greater than or equal to 126 mg/dL suggests DIABETES MELLITUS per A.D.A. criteria. Hemoglobin A1con 08-13-2024 HbA1c (Bld) [Mass fraction] 7.0 % High 3.8-5.[address] [facility] Comment on above: Order Comment: 405.1 Result Comment: Norm al < 5.7 % Prediabetic 5.7 - 6.4 % Diabetic >or= 6.5 % Please note range changes. Performed By: #### M 100.2200, L400.0001 #### [facility] [address] [place], [address] Hemoglobin A1c percentageOrd ered By: Ondina Gray on 08-13-2024 HbA1c (Bld) [Mass fraction] 7.0 % High 3.8-5.[address] [facility] Comment on above: Normal < 5.7 % Predi abetic 5.7 - 6.4 % Diabetic >or= 6.5 % Please note range changes. Potassium measurementOrdered By: Ondina Gray on 08-13-2024 Potassium [Moles/Vol] 3.6 mmol/L 3.5-5.1 [facility] Serum anion gap measurementO rdered By: Ondina Gray on 08-13-2024 Anion gap [Moles/Vol] 6 mmol/L 5-15 [facility] Serum or plasma calcium josiane urement (mass/volume)Ordered By: Ondina Gray on 08-13-2024 Calcium [Mass/Vol] 9.0 mg/dL 8.5-10.1 [facility] Serum or plasma creatinine m easurement (mass/volume)Ordered By: Ondina Gray on 08-13-2024 Creatinine [Mass/Vol] 0.59 mg/dL 0.55-1.02 [facility] Comment on above: The validity of the calculated GFR & GFRAA in patients over 70 years has not been determined. Clinical correlation is essential. Serum or plasma urea nitroge n measurement (mass/volume)Ordered By: Ondina Gray on 08-13-2024 Urea nitrogen [Mass/Vol] 14 mg/dL 7-[address] [facility] Sodium levelOrdered By: Don Gray on 08-13-2024 Sodium [Moles/Vol] 141 mmol/L 136-145 [facility] Stool Occult Blood iFOBon STOB Normal Reference Range = Negative Immunochemical Fecal Occult Blood (iFOBT) method. Hemoccult Stl Ql IA Limitation: Menstrual bleeding, constipation bleeding, bleeding hemorrhoids, and urinary bleeding conditions may interfere with test. Occult Blood Negative Normal [facility] Comment on above: Performed By: #### L 500.2500, L100.0500 #### [facility] [address] [place], [address] Lower GI hemoglobin IA Ql (S tl)Ordered By: Ondina Gray on 08-09-2024 Stool Occult Blood (ELY) [facility] Stool Occult Blood (ELY) [facility] CBC-Complete Blood Cnt No Di ffon 08-08-2024 Erythrocyte distribution width (RBC) [Ratio] 14.3 % Normal 11.6-14.[address] [facility] Comment on above: Order Comment: 305.1 Performed By: #### M 100.2200, L400.0001 #### [facility] [address] [place], [address] Hematocrit (Bld) [Volume fraction] 30.6 % Low 37-[address] [facility] Comment on above: Order Comment: 305.1 Performed By: #### M 100.2200, L400.0001 #### [facility] [address] [place], [address] Hemoglobin (Bld) [Mass/Vol] 9.4 g/dL Low 12.0-15.[address] [facility] Comment on above: Order Comment: 305.1 Performed By: #### M 100.2200, L400.0001 #### [facility] [address] [place], [address] MCH (RBC) [Entitic mass] 27.6 pg Normal 27.0-32.[address] [facility] Comment on above: Order Comment: 305.1 Performed By: #### M 100.2200, L400.0001 #### [facility] [address] [place], [address] MCHC (RBC) [Mass/Vol] 30.7 g/dL Low 32-36 [facility] Comment on above: Order Comment: 305.1 Performed By: #### M 100.2200, L400.0001 #### [facility] [address] [place], [address] MCV (RBC) [Entitic vol] 89.7 fL Normal 81-99 [facility] Comment on above: Order Comment: 305.1 Performed By: #### M 100.2200, L400.0001 #### [facility] [address] [place], [address] Platelet mean volume (Bld) [Entitic vol] 9.1 fL Normal 6.2-12.[address] [facility] Comment on above: Order Comment: 305.1 Performed By: #### M 100.2200, L400.0001 #### [facility] [address] [place], [address] Platelets (Bld) [#/Vol] 272 10*3/uL Normal 150-[address] [facility] Comment on above: Order Comment: 305.1 Performed By: #### M 100.2200, L400.0001 #### [facility] [address] [place], [address] RBC (Bld) [#/Vol] 3.41 10*6/uL Low 4.2-5.4 [facility] Comment on above: Order Comment: 305.1 Performed By: #### M 100.2200, L400.0001 #### [facility] [address] [place], [address] RDW SD 46.5 fl High 35.1-43.[address] [facility] Comment on above: Order Comment: 305.1 Performed By: #### M 100.2200, L400.0001 #### [facility] [address] [place], [address] WBC (Bld) [#/Vol] 4.1 10*3/uL Low 4.4-11.0 [facility] Comment on above: Order Comment: 305.1 Performed By: #### M 100.2200, L400.0001 #### [facility] [address] [place], [address] Erythrocyte distribution wid th ratioOrdered By: Ondina Gray on 08-08-2024 Erythrocyte distribution width (RBC) [Ratio] 14.3 % 11.6-14.[address] [facility] Erythrocyte distribution wid th standard deviationOrdered By: Ondina Gray on 08-08-2024 Erythrocyte distribution width (RBC) [Entitic vol] 46.5 fL High 35.1-43.[address] [facility] Hematocrit Auto (Bld) [Volum e fraction]Ordered By: Ondina Gray on 08-08-2024 Hematocrit (Bld) [Volume fraction] 30.6 % Low 37-[address] [facility] Hemoglobin measurementOrdere d By: Ondina Gray on 08-08-2024 Hemoglobin (Bld) [Mass/Vol] 9.4 g/dL Low 12.0-15.[address] [facility] MCV (mean corpuscular volume ) determinationOrdered By: Ondina Gray on 08-08-2024 MCV (RBC) [Entitic vol] 89.7 fL 81-99 [facility] Mean corpuscular hemoglobin (MCH) determinationOrdered By: Ondina Gray on 08-08-2024 MCH (RBC) [Entitic mass] 27.6 pg 27.0-32.[address] [facility] Mean corpuscular hemoglobin concentration (MCHC) determinationOrdered By: Ondina Gray on 08-08-2024 MCHC (RBC) [Mass/Vol] 30.7 g/dL Low 32-36 [facility] Mean platelet volume determi nationOrdered By: Ondina Gray on 08-08-2024 Platelet mean volume (Bld) [Entitic vol] 9.1 fL 6.2-12.[address] [facility] Platelet countOrdered By: Shai karine Gray on 08-08-2024 Platelets (Bld) [#/Vol] 272 10*3/uL 150-[address] [facility] RBC Auto (Bld) [#/Vol]Ordere d By: Ondina Gray on 08-08-2024 RBC (Bld) [#/Vol] 3.41 10*6/uL Low 4.2-5.4 [facility] Urine Cultureon 08-08-2024 [facility] UNKNOWN METHOD OF COLLECTION Results called on 08/08/24-1418 by GEORGE to CHAY HECK). Copy of report sent to Infection Control Printer MS#[id number] 08/08/24 5057 GEORGE. Urine Culture ESBL Klebsiella pneumoniae pne [place] Count >100,000 MARKER ESBL producing OrganismA MARKER ESBL producing OrganismA [place] Count 80,000-100,000 Escherichia coli Amikacin Islt ELY <=1 Ampicillin Islt ELY >=32 R Ampicillin+Sulbac Islt ELY >=32 Cefepime Islt ELY >=32 R Doxycycline Islt ELY >=16 R cefTRIAXone Islt ELY >=64 R Ciprofloxacin Islt ELY 0.5 I B-Lactamase Extended Susc Islt POS Gentamicin Islt ELY <=1 S Imipenem Islt ELY <=0.25 S levoFLOXacin Islt ELY 1 I Meropenem Islt ELY <=0.25 S Nitrofurantoin Islt ELY 64 I Pip+Tazo Islt ELY <=4 S Tobramycin Islt ELY <=1 S TMP SMX Islt ELY >=320 R Minocycline Islt ELY 4 S Escherichia coli: REACTION Ampicillin Islt ELY <=2 S Ampicillin+Sulbac Islt ELY <=2 S Cefepime Islt ELY <=0.12 cefTRIAXone Islt ELY <=0.25 S Ciprofloxacin Islt ELY 0.5 I B-Lactamase Extended Susc Islt NEG Gentamicin Islt ELY <=1 S levoFLOXacin Islt ELY 1 I Meropenem Islt ELY <=0.25 S Nitrofurantoin Islt ELY <=16 S Pip+Tazo Islt ELY <=4 S TMP SMX Islt ELY <=20 S Normal [facility] Comment on above: Performed By: #### M 100.2200, L400.0001 #### [facility] [address] [place], [place], [id number] White blood cell (WBC) count Ordered By: Ondina Gray on 08-08-2024 WBC (Bld) [#/Vol] 4.1 10*3/uL Low 4.4-11.0 [facility] Ferritinon 08-06-2024 Ferritin [Mass/Vol] 29 ng/mL Normal 8-252 [facility] Comment on above: Order Comment: 304-1 Performed By: #### L 500.2500, L100.0500 #### [facility] [address] [place], [place], [id number] Ferritin measurementOrdered By: Patricio Yee on 08-06-2024 Ferritin [Mass/Vol] 29 ng/mL 8-252 [facility] Folates, (Folic Acid)on 07-23 FOLATES 34.30 ng/mL Normal 3.1-55.[address] [facility] Comment on above: Order Comment: 304-1 Performed By: #### L 500.2500, L100.0500 #### [facility] [address] [place], [address] Folic acid measurementOrdere d By: Patricio Yee on 08-06-2024 Folate 34.30 ng/mL 3.1-55.[address] [facility] Ironon 08-06-2024 Iron [Mass/Vol] 50 ug/dL Normal 50-[address] [facility] Comment on above: Order Comment: 304-1 Performed By: #### L 500.2500, L100.0500 #### [facility] [address] [place], [address] Iron (Unsp spec) [Mass/Mass] Ordered By: Patricio Yee on 08-06-2024 Iron [Mass/Vol] 50 ug/dL 50-[address] [facility] Vitamin B12on 08-06-2024 Cobalamin (Vitamin B12) [Mass/Vol] 157 pg/mL Low 211-[address] [facility] Comment on above: Order Comment: 304-1 Performed By: #### L 500.2500, L100.0500 #### [facility] [address] [place], [address] Vitamin B12 measurementOrder ed By: Patricio Yee on 08-06-2024 Cobalamin (Vitamin B12) [Mass/Vol] 157 pg/mL Low 211-[address] [facility] Bilirubin Test strip Ql (U)O rdered By: Ondina Gray on 08-04-2024 Bilirubin Ql (U) Negative Negative [facility] Epithelial cells.squamous LM Ql (Urine sed)Ordered By: Ondina Gray on 08-04-2024 Epithelial cells.squamous LM.HPF (Urine sed) [#/Area] 0 /[HPF] 5-[address] [facility] Glucose Ql (U)Ordered By: Shai Gray on 08-04-2024 Glucose (U) [Mass/Vol] 1000 mg/dL High Normal [facility] Ketones Test strip Ql (U)Ord ered By: Ondina Gray on 08-04-2024 Ketones Ql (U) Negative Negative [facility] Microscopic analysis of urin e for red blood cells (RBC)Ordered By: Ondina Gray on 08-04-2024 Urine RBC 0-5 SEEN /hpf 0-[address] [facility] Mucus LM Ql (Urine sed)Order ed By: Ondina Gray on 08-04-2024 Mucus Ql (Urine sed) 0 SEEN /hpf [facility] Nitrite Test strip Ql (U)Ord ered By: Ondina Gray on 08-04-2024 Nitrite Ql (U) Negative Negative [facility] Protein Test strip Ql (U)Ord ered By: Ondina Gray on 08-04-2024 Protein Ql (U) 15 mg/dl High Negative [facility] Urinalysis, Completeon 08-04 BACTERIA 3+ /hpf Normal None Seen [facility] Comment on above: Order Comment: UNKNO WN METHOD OF COLLECTION CLEAN CATCH Performed By: #### M 100.2200, L400.0001 #### [facility] [address] [place], [address] EPI,SQUAMOUS 0-5 SEEN Normal 5-[address] [facility] Comment on above: Order Comment: UNKNO WN METHOD OF COLLECTION CLEAN CATCH Performed By: #### M 100.2200, L400.0001 #### [facility] [address] [place], [address] RBC 0-5 SEEN Normal 0-[address] [facility] Comment on above: Order Comment: UNKNO WN METHOD OF COLLECTION CLEAN CATCH Performed By: #### M 100.2200, L400.0001 #### [facility] [address] [place], [address] WBC 10-25 SEEN Normal 0-[address] [facility] Comment on above: Order Comment: UNKNO WN METHOD OF COLLECTION CLEAN CATCH Performed By: #### M 100.2200, L400.0001 #### [facility] [address] [place], [address] Mucus Ql (Urine sed) 0 SEEN Normal [facility] Comment on above: Order Comment: UNKNO WN METHOD OF COLLECTION CLEAN CATCH Performed By: #### M 100.2200, L400.0001 #### [facility] [address] [place], [address] Urine blood detectionOrdered By: Ondina Gray on 08-04-2024 Urine Occult Blood 10 /ul High Negative [facility] Urine clarityOrdered By: Madison Gray on 08-04-2024 Clarity (U) Sl. Cloudy Clear [facility] Urine color determinationOrd ered By: Ondina Gray on 08-04-2024 Color (U) Yellow Yellow [facility] Urine cultureOrdered By: Madison Gray on 08-04-2024 Bacteria identified Cx Nom (U) ESBL Klebsiella pneumoniae pne Abnormal [facility] Bacteria identified Cx Nom (U) Escherichia coli Abnormal [facility] Bacteria identified Cx Nom (U) ESBL Klebsiella pneumoniae pne Abnormal [facility] Bacteria identified Cx Nom (U) Escherichia coli Abnormal [facility] Urine leukocyte esterase det ection by dipstickOrdered By: Ondina Gray on 08-04-2024 Leukocyte esterase Test strip Ql (U) 100 /ul High Negative [facility] Urine pHOrdered By: Nino on 08-04-2024 pH (U) 6.0 [pH] 5.0 - 8.[address] [facility] Urine sediment bacteria coun t by microscopy (number/high power field)Ordered By: Ondina Gray on 08-04-2024 Bacteria LM.HPF (Urine sed) [#/Area] 3 /[HPF] None Seen [facility] Urine specific gravity measu rementOrdered By: Ondina Gray on 08-04-2024 Specific gravity (U) [Rel density] 1.020 1.002-1.[address] [facility] Urobilinogen Ql (U)Ordered B y: Ondina Gray on 08-04-2024 Urine Urobilinogen Normal mg/dl Normal [facility] White blood cell countOrdere d By: Ondina Gray on 08-04-2024 Urine WBC 10-25 SEEN /hpf 0-[address] [facility] Basic Metabolic Profile (BMP )on 08-01-2024 BUN/CRE 25.0 RATIO High 10-[address] [facility] Comment on above: Order Comment: 304-1 Performed By: #### L 500.2500, L100.0500 #### [facility] [address] [place], [address] CA,Total 8.9 mg/dL Normal 8.5-10.[address] [facility] Comment on above: Order Comment: 304-1 Performed By: #### L 500.2500, L100.0500 #### [facility] [address] [place], [address] Chloride [Moles/Vol] 100 mmol/L Normal 98-107 [facility] Comment on above: Order Comment: 304-1 Performed By: #### L 500.2500, L100.0500 #### [facility] [address] [place], [address] CO2 [Moles/Vol] 35.0 mmol/L High 21.0-32.[address] [facility] Comment on above: Order Comment: 304-1 Performed By: #### L 500.2500, L100.0500 #### [facility] [address] [place], [address] Creatinine [Mass/Vol] 0.72 mg/dL Normal 0.55-1.02 [facility] Comment on above: Order Comment: 304-1 Result Comment: The validity of the calculated GFR GFRAA in patients over 70 years has not been determined. Clinical correlation is essential. Performed By: #### L 500.2500, L100.0500 #### [facility] [address] [place], [address] EST GFR - AA 101 mL/min Normal >[address] [facility] Comment on above: Order Comment: 304-1 Result Comment: Afri can Sudanese GFR Calc Performed By: #### L 500.2500, L100.0500 #### [facility] [address] [place], [address] GAP 3 Low 5-[address] [facility] Comment on above: Order Comment: 304-1 Performed By: #### L 500.2500, L100.0500 #### [facility] [address] [place], [address] GFR/1.73 sq M.predicted among non-blacks MDRD (S/P/Bld) [Vol rate/Area] 83 mL/min/{1.73_m2} Normal >[address] [facility] Comment on above: Order Comment: 304-1 Result Comment: Non- GFR Calc Performed By: #### L 500.2500, L100.0500 #### [facility] [address] [place], [address] Glucose [Mass/Vol] 77 mg/dL Normal 74-106 [facility] Comment on above: Order Comment: 304-1 Performed By: #### L 500.2500, L100.0500 #### [facility] [address] [place], [address] Potassium [Moles/Vol] 3.3 mmol/L Low 3.5-5.1 [facility] Comment on above: Order Comment: 304-1 Performed By: #### L 500.2500, L100.0500 #### [facility] [address] [place], [address] Sodium [Moles/Vol] 138 mmol/L Normal 136-145 [facility] Comment on above: Order Comment: 304-1 Performed By: #### L 500.2500, L100.0500 #### [facility] [address] [place], [address] Urea nitrogen [Mass/Vol] 18 mg/dL Normal 7-[address] [facility] Comment on above: Order Comment: 304-1 Performed By: #### L 500.2500, L100.0500 #### [facility] [address] [place], [address] Blood urea nitrogen (BUN)/cr eatinine ratioOrdered By: Ondina Gray on 08-01-2024 Urea nitrogen/Creatinine [Mass ratio] 25.0 mg/mg High 10-[address] [facility] CBC-Complete Blood Cnt No Di ffon 08-01-2024 Erythrocyte distribution width (RBC) [Ratio] 14.2 % Normal 11.6-14.[address] [facility] Comment on above: Order Comment: 304-1 Performed By: #### L 500.2500, L100.0500 #### [facility] [address] [place], [address] Hematocrit (Bld) [Volume fraction] 28.7 % Low 37-[address] [facility] Comment on above: Order Comment: 304-1 Performed By: #### L 500.2500, L100.0500 #### [facility] [address] [place], [address] Hemoglobin (Bld) [Mass/Vol] 9.3 g/dL Low 12.0-15.[address] [facility] Comment on above: Order Comment: 304-1 Performed By: #### L 500.2500, L100.0500 #### [facility] [address] [place], [address] MCH (RBC) [Entitic mass] 29.0 pg Normal 27.0-32.[address] [facility] Comment on above: Order Comment: 304-1 Performed By: #### L 500.2500, L100.0500 #### [facility] [address] [place], [address] MCHC (RBC) [Mass/Vol] 32.4 g/dL Normal 32-36 [facility] Comment on above: Order Comment: 304-1 Performed By: #### L 500.2500, L100.0500 #### [facility] [address] [place], [address] MCV (RBC) [Entitic vol] 89.4 fL Normal 81-99 [facility] Comment on above: Order Comment: 304-1 Performed By: #### L 500.2500, L100.0500 #### [facility] [address] [place], [address] Platelet mean volume (Bld) [Entitic vol] 9.3 fL Normal 6.2-12.[address] [facility] Comment on above: Order Comment: 304-1 Performed By: #### L 500.2500, L100.0500 #### [facility] [address] [place], [address] Platelets (Bld) [#/Vol] 291 10*3/uL Normal 150-[address] [facility] Comment on above: Order Comment: 304-1 Performed By: #### L 500.2500, L100.0500 #### [facility] [address] [place], [address] RBC (Bld) [#/Vol] 3.21 10*6/uL Low 4.2-5.4 [facility] Comment on above: Order Comment: 304-1 Performed By: #### L 500.2500, L100.0500 #### [facility] [address] [place], [address] RDW SD 46.5 fl High 35.1-43.[address] [facility] Comment on above: Order Comment: 304-1 Performed By: #### L 500.2500, L100.0500 #### [facility] [address] [place], [address] WBC (Bld) [#/Vol] 4.3 10*3/uL Low 4.4-11.0 [facility] Comment on above: Order Comment: 304-1 Performed By: #### L 500.2500, L100.0500 #### [facility] [address] [place], [address] Carbon dioxide measurementOr dered By: Ondina Gray on 08-01-2024 CO2 [Moles/Vol] 35.0 mmol/L High 21.0-32.[address] [facility] Chloride measurementOrdered By: Ondina Gray on 08-01-2024 Chloride [Moles/Vol] 100 mmol/L 98-107 [facility] Erythrocyte distribution wid th ratioOrdered By: Ondina Gray on 08-01-2024 Erythrocyte distribution width (RBC) [Ratio] 14.2 % 11.6-14.[address] [facility] Erythrocyte distribution wid th standard deviationOrdered By: Ondina Gray on 08-01-2024 Erythrocyte distribution width (RBC) [Entitic vol] 46.5 fL High 35.1-43.[address] [facility] Estimated glomerular filtrat ion rate (GFR) AmericanOrdered By: Ondina Gray on 08-01-2024 Estimated GFR (MDRD) Amer 101 mL/min >[address] [facility] Comment on above: GFR Calc Glomerular filtration rate ( GFR) estimationOrdered By: Ondina Gray on 08-01-2024 Estimated GFR (MDRD) Non-Af Amer 83 mL/min >[address] [facility] Comment on above: Non- GFR Calc Glucose measurementOrdered B y: Ondina Gray on 08-01-2024 Glucose [Mass/Vol] 77 mg/dL 74-106 [facility] Hematocrit Auto (Bld) [Volum e fraction]Ordered By: Ondina Gray on 08-01-2024 Hematocrit (Bld) [Volume fraction] 28.7 % Low 37-[address] [facility] Hemoglobin measurementOrdere d By: Ondina Gray on 08-01-2024 Hemoglobin (Bld) [Mass/Vol] 9.3 g/dL Low 12.0-15.[address] [facility] MCV (mean corpuscular volume ) determinationOrdered By: Ondina Gray on 08-01-2024 MCV (RBC) [Entitic vol] 89.4 fL 81-99 [facility] Mean corpuscular hemoglobin (MCH) determinationOrdered By: Ondina Gray on 08-01-2024 MCH (RBC) [Entitic mass] 29.0 pg 27.0-32.[address] [facility] Mean corpuscular hemoglobin concentration (MCHC) determinationOrdered By: Ondina Gray on 08-01-2024 MCHC (RBC) [Mass/Vol] 32.4 g/dL 32-36 [facility] Mean platelet volume determi nationOrdered By: Ondina Gray on 08-01-2024 Platelet mean volume (Bld) [Entitic vol] 9.3 fL 6.2-12.[address] [facility] Platelet countOrdered By: Shai Gray on 08-01-2024 Platelets (Bld) [#/Vol] 291 10*3/uL 150-[address] [facility] Potassium measurementOrdered By: Ondina Gray on 08-01-2024 Potassium [Moles/Vol] 3.3 mmol/L Low 3.5-5.1 [facility] RBC Auto (Bld) [#/Vol]Ordere d By: Ondina Gray on 08-01-2024 RBC (Bld) [#/Vol] 3.21 10*6/uL Low 4.2-5.4 [facility] Serum anion gap measurementO rdered By: Ondina Gray on 08-01-2024 Anion gap [Moles/Vol] 3 mmol/L Low 5-15 [facility] Serum or plasma calcium josiane urement (mass/volume)Ordered By: Ondina Gray on 08-01-2024 Calcium [Mass/Vol] 8.9 mg/dL 8.5-10.1 [facility] Serum or plasma creatinine m easurement (mass/volume)Ordered By: Ondina Gray on 08-01-2024 Creatinine [Mass/Vol] 0.72 mg/dL 0.55-1.02 [facility] Comment on above: The validity of the calculated GFR & GFRAA in patients over 70 years has not been determined. Clinical correlation is essential. Serum or plasma urea nitroge n measurement (mass/volume)Ordered By: Ondina Gray on 08-01-2024 Urea nitrogen [Mass/Vol] 18 mg/dL 7-[address] [facility] Sodium levelOrdered By: Don Gray on 08-01-2024 Sodium [Moles/Vol] 138 mmol/L 136-145 [facility] White blood cell (WBC) count Ordered By: Ondina Gray on 08-01-2024 WBC (Bld) [#/Vol] 4.3 10*3/uL Low 4.4-11.[address] [facility] [address] BRAIN WO IVCONon 07-21-[address] BRAIN WO IVCON * * *Final Report* * * DATE OF EXAM: Jul 21 2024 3:58AM [facility] 0504 - CT BRAIN WO IVCON / PROCEDURE REASON: Head trauma, minor (Age >= 65y) * * * * Physician Interpretation * * * * EXAMINATION: CT BRAIN WO IVCON, CT CERVICAL SPINE WO IVCON CLINICAL HISTORY: Head trauma, minor (Age >= 65y). Spine fracture, cervical, traumatic (accession [id number]), Head trauma, minor (Age >= 65y) (accession [id number]). . TECHNIQUE: Serial axial unenhanced images were obtained from the vertex to the foramen magnum. Spiral, high resolution axial unenhanced images were obtained from the skull base to the cervicothoracic junction with sagittal and coronal planar reconstructions. MQ: CTBCSWO_3 CT Dose-Length Product (DLP): 1117 mGy*cm CT Dose Reduction Employed: Automated exposure control(AEC) and iterative recon; COMPARISON: 08/31/[address] RESULT: BRAIN: Post-operative change: None. Acute change: No evidence of a sizable/large acute territorial brain infarct/parenchymal edema. MRI may be considered as a more sensitive modality if continued clinical concern/warranted. Hemorrhage: No evidence of acute intracranial hemorrhage. Mass Lesion / Mass Effect: There is no evidence of a sizable brain mass. No significant mass effect or extra-axial fluid collection (other than if described elsewhere). Chronic changes, including parenchymal: Intracranial arterial wall calcifications. 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 Patchy foci of low attenuation coefficient are present within the supratentorial white matter, which is nonspecific, but most commonly on the basis of moderate microvascular ischemia. There is at least moderate generalized cerebral and mild cerebellar volume loss. Ventricles: The ventricles are mild-moderately enlarged, but the configuration suggests central white matter volume loss. Visualized paranasal sinuses: Partially imaged. Scattered mucosal thickening, up to mild-moderate in the left-sided maxillary sinus. Other: Mild/moderate left-sided hyperdense parietal scalp swelling/hematoma. No depressed skull fracture is seen. Ocular lens replacement(s). CERVICAL: Counting reference: Craniocervical junction. Anatomic Variants: None. Alignment, curvature: Straightening of the normal cervical lordosis. No significant spondylolistheses. Craniocervical junction: No gross acute finding. Bone marrow, fracture: Generalized osteopenia, which may limit assessment for subtle fractures or subtle destructive bony lesions. No grossly seen aggressive lytic or blastic lesion in the spine. Nonspecific small lucent focus in the right-sided C3 lamina (3:60) that may also be erosive/reactive/inf lammatory. No evidence of an acute fracture in the spine. Paraspinal soft tissues: The paraspinal soft tissue planes appear grossly preserved. Degenerative changes/canal/neural foramina: Cortical irregularity/erosive changes and sclerosis along some vertebral body endplates and facets (with some progression, such as on the RIGHT at C3-C4) may be chronic reactive in the setting of degenerative changes, but cannot exclude superimposed sequelae of inflammation/infecti on. Atlanto-axial arthritic changes. Additionally, at the imaged portion of the spine of primary interest, combination of ligamentum flavum thickening, facet arthropathy (up to severe multilevel bilaterally) and disc-osteophyte complexes (up to moderate-severe and severe multilevel) contribute to up to severe and moderate-severe multilevel neural foraminal stenoses. Estimated up to moderate (or slightly more) spinal canal stenoses, and at least mild cord compressions. Other: Nonspecific suggested mild-moderate chronic heterogeneity of the bilateral parotid glands, possibly sequelae of chronic inflammation or granulomatous disease. Waiter/Waitress Counter (topogram) images: Non-diagnostic. IMPRESSION: Brain CT shows no evidence of an acute intracranial abnormality. Chronic intracranial changes as above. Mild/moderate left-sided parietal scalp hematoma. Cervical spine CT shows no evidence of an acute fracture or traumatic spondylolisthesis. Degenerative spine changes as above. Nonspecific areas of facet and vertebral endplate cortical irregularity/erosive changes as above. Other details above. Anatomic Variant: None. Assume 7 cervical vertebrae with counting from the craniocervical junction. Fitness/Wellness Director: VLAD Transcribe Date/Time: Jul 21 2024 4:01A Dictated by : REX COLON MD This examination was interpreted and the report reviewed and electronically signed by: REX COLON MD on Jul 21 2024 4:12AM EST [id number] CN Normal [facility] CT CERVICAL SPINE WO IVCONon 07-21-2024 CT CERVICAL SPINE WO IVCON * * *Final Report* * * DATE OF EXAM: Jul 21 2024 3:58AM [facility] 0505 - CT CERVICAL SPINE WO IVCON / PROCEDURE REASON: Spine fracture, cervical, traumatic * * * * Physician Interpretation * * * * EXAMINATION: CT BRAIN WO IVCON, CT CERVICAL SPINE WO IVCON CLINICAL HISTORY: Head trauma, minor (Age >= 65y). Spine fracture, cervical, traumatic (accession [id number]), Head trauma, minor (Age >= 65y) (accession [id number]). . TECHNIQUE: Serial axial unenhanced images were obtained from the vertex to the foramen magnum. Spiral, high resolution axial unenhanced images were obtained from the skull base to the cervicothoracic junction with sagittal and coronal planar reconstructions. MQ: CTBCSWO_3 CT Dose-Length Product (DLP): 1117 mGy*cm CT Dose Reduction Employed: Automated exposure control(AEC) and iterative recon; COMPARISON: 08/31/[address] RESULT: BRAIN: Post-operative change: None. Acute change: No evidence of a sizable/large acute territorial brain infarct/parenchymal edema. MRI may be considered as a more sensitive modality if continued clinical concern/warranted. Hemorrhage: No evidence of acute intracranial hemorrhage. Mass Lesion / Mass Effect: There is no evidence of a sizable brain mass. No significant mass effect or extra-axial fluid collection (other than if described elsewhere). Chronic changes, including parenchymal: Intracranial arterial wall calcifications. 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 Patchy foci of low attenuation coefficient are present within the supratentorial white matter, which is nonspecific, but most commonly on the basis of moderate microvascular ischemia. There is at least moderate generalized cerebral and mild cerebellar volume loss. Ventricles: The ventricles are mild-moderately enlarged, but the configuration suggests central white matter volume loss. Visualized paranasal sinuses: Partially imaged. Scattered mucosal thickening, up to mild-moderate in the left-sided maxillary sinus. Other: Mild/moderate left-sided hyperdense parietal scalp swelling/hematoma. No depressed skull fracture is seen. Ocular lens replacement(s). CERVICAL: Counting reference: Craniocervical junction. Anatomic Variants: None. Alignment, curvature: Straightening of the normal cervical lordosis. No significant spondylolistheses. Craniocervical junction: No gross acute finding. Bone marrow, fracture: Generalized osteopenia, which may limit assessment for subtle fractures or subtle destructive bony lesions. No grossly seen aggressive lytic or blastic lesion in the spine. Nonspecific small lucent focus in the right-sided C3 lamina (3:60) that may also be erosive/reactive/inf lammatory. No evidence of an acute fracture in the spine. Paraspinal soft tissues: The paraspinal soft tissue planes appear grossly preserved. Degenerative changes/canal/neural foramina: Cortical irregularity/erosive changes and sclerosis along some vertebral body endplates and facets (with some progression, such as on the RIGHT at C3-C4) may be chronic reactive in the setting of degenerative changes, but cannot exclude superimposed sequelae of inflammation/infecti on. Atlanto-axial arthritic changes. Additionally, at the imaged portion of the spine of primary interest, combination of ligamentum flavum thickening, facet arthropathy (up to severe multilevel bilaterally) and disc-osteophyte complexes (up to moderate-severe and severe multilevel) contribute to up to severe and moderate-severe multilevel neural foraminal stenoses. Estimated up to moderate (or slightly more) spinal canal stenoses, and at least mild cord compressions. Other: Nonspecific suggested mild-moderate chronic heterogeneity of the bilateral parotid glands, possibly sequelae of chronic inflammation or granulomatous disease. Waiter/Waitress Counter (topogram) images: Non-diagnostic. IMPRESSION: Brain CT shows no evidence of an acute intracranial abnormality. Chronic intracranial changes as above. Mild/moderate left-sided parietal scalp hematoma. Cervical spine CT shows no evidence of an acute fracture or traumatic spondylolisthesis. Degenerative spine changes as above. Nonspecific areas of facet and vertebral endplate cortical irregularity/erosive changes as above. Other details above. Anatomic Variant: None. Assume 7 cervical vertebrae with counting from the craniocervical junction. Fitness/Wellness Director: VLAD Transcribe Date/Time: Jul 21 2024 4:01A Dictated by : REX COLON MD This examination was interpreted and the report reviewed and electronically signed by: REX COLON MD on Jul 21 2024 4:12AM EST [id number] [facility] ED NOTEon 07-21-2024 ED NOTE HNO ID: [id number] Author: MEL FAYE RN Service: Emergency Medicine Author Type: Registered Nurse Type: ED Notes Filed: 07/21/2024 06:40 Note Text: Report given to Nurse at [facility] ED NOTE HNO ID: [id number] Author: MEL FAYE RN Service: Emergency Medicine Author Type: Registered Nurse Type: ED Notes Filed: 07/21/2024 06:38 Note Text: 4Ride contacted for patient transport back to [facility] ETA 45 - 1 hour [facility] ED NOTE HNO ID: [id number] Author: AROLDO RAY RN Service: Emergency Medicine Author Type: Registered Nurse Type: ED Notes Filed: 07/21/2024 04:21 Note Text: [facility] ED NOTE HNO ID: [id number] Author: GOKUL ROSE, ROXANNE Service: ? Author Type: Registered Nurse Type: ED Notes Filed: 07/21/2024 04:12 Note Text: Bed: 10-ED Expected date: Expected time: Means of arrival: Comments: T3 [facility] ED NOTE HNO ID: [id number] Author: AROLDO RAY RN Service: Emergency Medicine Author Type: Registered Nurse Type: ED Notes Filed: 07/21/2024 04:21 Note Text: Report given to Mel OLIVEIRA [facility] ED NOTE HNO ID: [id number] Author: AROLDO RAY RN Service: Emergency Medicine Author Type: Registered Nurse Type: ED Notes Filed: 07/21/2024 03:46 Note Text: Pt placed on continuous pulse ox, cardiac monitoring and blood pressure cuff. Call light in reach. [facility] ED NOTE HNO ID: [id number] Author: AROLDO RAY RN Service: Emergency Medicine Author Type: Registered Nurse Type: ED Notes Filed: 07/21/2024 04:21 Note Text: Pt removed from c-collar by Dr. Pettit [facility] ED PROV NOTEon 07-21-2024 ED PROV NOTE HNO ID: [id number] Author: SHUBHAM PETTIT MD Service: Emergency Medicine Author Type: Resident Type: ED Provider Notes Filed: 07/25/2024 22:57 Note Text: Attestation signed by Shubham Pettit MD at 07/25/2024 10:57 PM Attending Attestation Note: Powell findings confirmed. I evaluated the patient in conjunction with the resident physician. I personally examined the patient. I discussed the patient with the resident physician. I reviewed the resident physician's note. I was present for powell portions of and personally supervised any/all procedures. I personally made/approved the management plan and take responsibility for the patient management. Please refer to my separately documented ED Provider Note for further details. Signature: Shubham Pettit MD Date: 07/25/2024 Time: 10:57 PM ED Provider Note Patient Name: Marcia Rooney : 1945 SERVICE DATE: 07/21/24 History Patient presents with: Trauma: T3 - Please see trauma narrator HPI 78-year-old female presents to the ED as a trauma 3 for chemical fall blood thinners. Patient is on Plavix and aspirin. Patient reports she was sitting on the side of her bed and attempted to get up to go to the restroom when she fell forward hitting her head. She denies loss of consciousness, but is unsure what made her fall. She denies any symptoms prior to the fall, and does not remember tripping over anything. She is endorsing posterior left head pain, right hand pain, and left shoulder pain. PAST MEDICAL HISTORY Diagnosis Date Diabetes (HCC) No past surgical history on file. No family history on file. Social History Tobacco Use Smoking status: Former Current packs/day: 0.50 Types: Cigarettes Smokeless tobacco: Never Vaping Use Vaping status: Never Used Substance and Sexual Activity Alcohol use: Not Currently Drug use: Never Sexual activity: Not on file ALLERGIES No Known Allergies Review of Systems Constitutional: Negative for activity change, chills, diaphoresis and fever. HENT: Negative for congestion, rhinorrhea and sore throat. Respiratory: Negative for chest tightness and shortness of breath. Cardiovascular: Negative for chest pain. Gastrointestinal: Negative for abdominal distention, abdominal pain, constipation, diarrhea, nausea and vomiting. Genitourinary: Negative for dysuria, frequency and urgency. Musculoskeletal: Positive for arthralgias and myalgias. Negative for back pain, joint swelling and neck pain. Neurological: Negative for dizziness, syncope, weakness and headaches. Physical Exam Vitals BP Pulse Temp Temp src Resp SpO2 Weight Height 07/21/24 0345 07/21/24 0344 07/21/24 0345 07/21/24 0345 07/21/24 0344 07/21/24 0344 07/21/24 0348 07/21/24347 149/74 72 37.1 ?C (98.8 ?F) Axillary 16 96 % 85.3 kg (188 lb) 1.676 m (5' 6") Physical Exam Trauma Physical Exam Primary Survey: AIRWAY: Patent BREATHING: Breath sounds equal CIRCULATION: PT/DP 2+, Radials 2+ . Systolic BP > than 89 DISABILITY: Right pupil 5 mm to 3 mm reactive. Left pupil 5 mm unreactive to light or accommodation. Patient denies any vision changes or prior surgeries of the left eye. Alert AND oriented to person, place and month, but not year. Motor and sensation grossly intact bilateral upper and lower extremities. INITIAL GCS: (Eyes: 4. Spontaneous / Verbal: 5: Oriented / Motor: 6: Obeys Motor commands) 15 EXPOSURE: Complete exposure of the patient was obtained. Warm Blankets Secondary Survey: HEENT: HEAD: 4 cm cephalohematoma noted on the left parietal scalp. No active bleeding or laceration. No Piedra's Sign or Raccoon Eyes. Midface stable AND non-tender to palpation. EARS: Atraumatic. No hemotympanum bilaterally. No blood in the external canals. External ear without signs of trauma. EYES: Atraumatic. Left pupil not reactive to light. Right pupil 5 mm reactive to light and accommodation. Extraocular movements intact. No evidence of penetrating injury or entrapment. NOSE: Nasal septum midline. No blood in nares. No rhinorrhea. No nasal septal hematoma. MOUTH/THROAT: No intraoral injury. No malocclusion. No evidence of tongue, lip or mucosal lacerations. No blood noted in the oropharynx NECK: ANTERIOR: Atraumatic. Trachea midline. No evidence of expanding hematoma, crepitus, deviated trachea, ecchymosis or lacerations. POSTERIOR: Atraumatic. No midline cervical spinal tenderness to palpation. No bony crepitus, deformities, or step-offs appreciated. CHEST: BREATH SOUNDS/EFFORT: CTAB without wheezing, rales, rhonchi or diminished areas. Patients breathing without accessory muscles, with normal rate, and normal inspiratory volume. Patient saturating at 98% on RA. CHEST WALL: Atraumatic. No pain or defo (more content not included)... Normal [facility] ED PROV NOTE HNO ID: [id number] Author: SHUBHAM PETTIT MD Service: Emergency Medicine Author Type: Physician Type: ED Provider Notes Filed: 07/21/2024 06:26 Note Text: Attending Physician Attestation Note: Powell findings confirmed. I saw the patient in coordination with the resident physician. I personally interviewed and examined the patient. I discussed the patient with the resident physician. I reviewed the resident physician's note. I was present for powell portions of and personally supervised any/all procedures. I agree with the resident physician's findings and medical decision making unless otherwise documented. Physical Exam: Vital signs: Reviewed General: alert and oriented. No acute distress HEENT: Head is normocephalic with a small left posterior occipital hematoma 4 cm., sinuses nontender, left pupil with minimal reactivity. Right pupil normal. Neck: Supple without lymphadenopathy nontender. C-collared Cardiovascular. Regular rate and rhythm, no murmurs. No rubs or gallops. Normal S1 and S2 Respiratory: Clear to auscultation bilaterally. No wheezes, rales, rhonchi Abdomen: Soft and nontender. Normal bowel sounds. No guarding or rebound. Nonsurgical abdomen Extremities: Mild tenderness and bruising to the posterior right hand. Mild tenderness to the left shoulder without swelling or deformity. Skin: See above Neurologic: Cranial nerves II through XII grossly intact. Normal strength and sensation. Normal cerebellar function The rest of the physical exam is unremarkable Medical Decision Making: Patient presents after a fall from standing at her nursing facility. She remembers trying to get up and losing her balance and falling. There is no near syncopal episode. Denies any complaints other than striking the back of her head she has some discomfort there. Denies neck pain. Has some soreness reproducible on evaluation of her left shoulder and back of her right hand with a small bruise noted to the back of her right hand. CT head neck obtained. X-rays obtained. Imaging study unremarkable for acute abnormality. Patient be discharged follow-up as an outpatient. I suspect she just had a mechanical fall and a small hematoma to her scalp and small contusions. ROLAN PETTITS 07/21/24 0626 Normal [facility] XR HAND 3V PA/LAT/OBL RTon 1 XR HAND 3V PA/LAT/OBL RT * * *Final Repo rt* * * DATE OF EXAM: Jul 21 2024 4:12AM [id number] - XR HAND 3V PA/LAT/OBL RT / PROCEDURE REASON: Trauma * * * * Physician Interpretation * * * * EXAMINATION: XR HAND 3V PA/LAT/OBL RT, XR SHLDR >/=3V AP/CHANTAL AP/OTHR LT CLINICAL HISTORY: Trauma Technique: XR HAND 3V PA/LAT/OBL RT, XR SHLDR >/=3V AP/CHANTAL AP/OTHR LT -- RIGHT (accession [id number]), LEFT (accession [id number]) with 3 views on 3 images Comparison: None RESULT: Right hand: Internal fixation of the distal radius with plate and screws is noted. The orthopedic hardware is intact. Underlying fracture is healed. Remote ununited fracture of the ulnar styloid is noted. There is a fixed flexion deformity of the ring finger. No acute fracture is identified. 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 There is diffuse osteopenia. Soft tissue structures are unremarkable. Left shoulder: No acute fracture or osseous lesions are identified. The glenohumeral joint space, cervical space and acromioclavicular joint are preserved. Soft tissue structures are unremarkable. IMPRESSION: Posttraumatic and postsurgical changes No acute fracture identified Fixed flexion deformity of the ring finger Osteopenia No acute findings in the left shoulder Fitness/Wellness Director: VLAD Transcribe Date/Time: Jul 21 2024 6:18A Dictated by : FREDY KIM MD This examination was interpreted and the report reviewed and electronically signed by: FREDY KIM MD on Jul 21 2024 6:21AM EST [id number] CN Normal [facility] XR SHLDR >/=3V AP/CHANTAL AP/OTH R LTon 07-21-2024 XR SHLDR >/=3V AP/CHANTAL AP/OTHR LT * * *Final Report* * * DATE OF EXAM: Jul 21 2024 4:12AM [id number] - XR SHLDR >/=3V AP/CHANTAL AP/OTHR LT / PROCEDURE REASON: Trauma * * * * Physician Interpretation * * * * EXAMINATION: XR HAND 3V PA/LAT/OBL RT, XR SHLDR >/=3V AP/CHANTAL AP/OTHR LT CLINICAL HISTORY: Trauma Technique: XR HAND 3V PA/LAT/OBL RT, XR SHLDR >/=3V AP/CHANTAL AP/OTHR LT -- RIGHT (accession [id number]), LEFT (accession [id number]) with 3 views on 3 images Comparison: None RESULT: Right hand: Internal fixation of the distal radius with plate and screws is noted. The orthopedic hardware is intact. Underlying fracture is healed. Remote ununited fracture of the ulnar styloid is noted. There is a fixed flexion deformity of the ring finger. No acute fracture is identified. 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 There is diffuse osteopenia. Soft tissue structures are unremarkable. Left shoulder: No acute fracture or osseous lesions are identified. The glenohumeral joint space, cervical space and acromioclavicular joint are preserved. Soft tissue structures are unremarkable. IMPRESSION: Posttraumatic and postsurgical changes No acute fracture identified Fixed flexion deformity of the ring finger Osteopenia No acute findings in the left shoulder Fitness/Wellness Director: PSCB Transcribe Date/Time: Jul 21 2024 6:18A Dictated by : FREDY KIM MD This examination was interpreted and the report reviewed and electronically signed by: FREDY KIM MD on Jul 21 2024 6:21AM EST [id number] CN Normal [facility] Serum or plasma thyroxine (T 4) measurement (mass/volume)Ordered By: Ondina Gray on 06-27-2024 T4 [Mass/Vol] 8.9 ug/dL 4.8-13.[address] [facility] T4 Total, Thyroxinon 024 T4 [Mass/Vol] 8.9 ug/dL Normal 4.8-13.[address] [facility] Comment on above: Order Comment: 304-1 Performed By: #### L 500.2500, L100.0500 #### [facility] [address] [place], [address] TSH QnOrdered By: Ondina Gray on 06-27-2024 Thyroid Stimulating Hormone (TSH) 13.400 uIU/mL High 0.358-3.[address] [facility] Thyroid Stim Hormone (TSH)on 06-27-2024 TSH 13.400 uIU/mL High 0.358-3.[address] [facility] Comment on above: Order Comment: 304-1 Performed By: #### L 500.2500, L100.0500 #### [facility] [address] [place], [address] Basic Metabolic Profile (BMP )on 06-23-2024 BUN/CRE 19.1 RATIO Normal 10-[address] [facility] Comment on above: Order Comment: 304-1 Performed By: #### L 500.2500, L100.0500 #### [facility] [address] [place], [address] CA,Total 8.0 mg/dL Low 8.5-10.[address] [facility] Comment on above: Order Comment: 304-1 Performed By: #### L 500.2500, L100.0500 #### [facility] [address] [place], [address] Chloride [Moles/Vol] 102 mmol/L Normal 98-107 [facility] Comment on above: Order Comment: 304-1 Performed By: #### L 500.2500, L100.0500 #### [facility] [address] [place], [address] CO2 [Moles/Vol] 31.0 mmol/L Normal 21.0-32.[address] [facility] Comment on above: Order Comment: 304-1 Performed By: #### L 500.2500, L100.0500 #### [facility] [address] [place], [address] Creatinine [Mass/Vol] 0.58 mg/dL Normal 0.55-1.02 [facility] Comment on above: Order Comment: 304-1 Result Comment: The validity of the calculated GFR GFRAA in patients over 70 years has not been determined. Clinical correlation is essential. Performed By: #### L 500.2500, L100.0500 #### [facility] [address] [place], [address] EST GFR - AA 130 mL/min Normal >[address] [facility] Comment on above: Order Comment: 304-1 Result Comment: Afri can Sudanese GFR Calc Performed By: #### L 500.2500, L100.0500 #### [facility] [address] [place], [address] GAP 4 Low 5-[address] [facility] Comment on above: Order Comment: 304-1 Performed By: #### L 500.2500, L100.0500 #### [facility] [address] [place], [address] GFR/1.73 sq M.predicted among non-blacks MDRD (S/P/Bld) [Vol rate/Area] 108 mL/min/{1.73_m2} Normal >[address] [facility] Comment on above: Order Comment: 304-1 Result Comment: Non- GFR Calc Performed By: #### L 500.2500, L100.0500 #### [facility] [address] [place], [address] Glucose [Mass/Vol] 203 mg/dL High 74-106 [facility] Comment on above: Order Comment: 304-1 Result Comment: Gluc ose result greater than or equal to 200 mg/dL suggests DIABETES MELLITUS per A.D.A. criteria. Performed By: #### L 500.2500, L100.0500 #### [facility] [address] [place], [address] Potassium [Moles/Vol] 3.8 mmol/L Normal 3.5-5.1 [facility] Comment on above: Order Comment: 304-1 Performed By: #### L 500.2500, L100.0500 #### [facility] [address] [place], [address] Sodium [Moles/Vol] 137 mmol/L Normal 136-145 [facility] Comment on above: Order Comment: 304-1 Performed By: #### L 500.2500, L100.0500 #### [facility] [address] [place], [address] Urea nitrogen [Mass/Vol] 11 mg/dL Normal 7-[address] [facility] Comment on above: Order Comment: 304-1 Performed By: #### L 500.2500, L100.0500 #### [facility] [address] [place], [address] Blood urea nitrogen (BUN)/cr eatinine ratioOrdered By: Patricio Yee on 06-23-2024 Urea nitrogen/Creatinine [Mass ratio] 19.1 mg/mg 10-[address] [facility] CBC-Complete Blood Cnt No Di ffon 06-23-2024 Erythrocyte distribution width (RBC) [Ratio] 13.9 % Normal 11.6-14.[address] [facility] Comment on above: Order Comment: 304-1 Performed By: #### L 500.2500, L100.0500 #### [facility] [address] [place], [address] Hematocrit (Bld) [Volume fraction] 31.6 % Low 37-[address] [facility] Comment on above: Order Comment: 304-1 Performed By: #### L 500.2500, L100.0500 #### [facility] [address] [place], [address] Hemoglobin (Bld) [Mass/Vol] 10.4 g/dL Low 12.0-15.[address] [facility] Comment on above: Order Comment: 304-1 Performed By: #### L 500.2500, L100.0500 #### [facility] [address] [place], [address] MCH (RBC) [Entitic mass] 30.3 pg Normal 27.0-32.[address] [facility] Comment on above: Order Comment: 304-1 Performed By: #### L 500.2500, L100.0500 #### [facility] [address] [place], [address] MCHC (RBC) [Mass/Vol] 32.9 g/dL Normal 32-36 [facility] Comment on above: Order Comment: 304-1 Performed By: #### L 500.2500, L100.0500 #### [facility] [address] [place], [address] MCV (RBC) [Entitic vol] 92.1 fL Normal 81-99 [facility] Comment on above: Order Comment: 304-1 Performed By: #### L 500.2500, L100.0500 #### [facility] [address] [place], [address] Platelet mean volume (Bld) [Entitic vol] 9.5 fL Normal 6.2-12.[address] [facility] Comment on above: Order Comment: 304-1 Performed By: #### L 500.2500, L100.0500 #### [facility] [address] [place], [address] Platelets (Bld) [#/Vol] 256 10*3/uL Normal 150-[address] [facility] Comment on above: Order Comment: 304-1 Performed By: #### L 500.2500, L100.0500 #### [facility] [address] [place], [address] RBC (Bld) [#/Vol] 3.43 10*6/uL Low 4.2-5.4 [facility] Comment on above: Order Comment: 304-1 Performed By: #### L 500.2500, L100.0500 #### [facility] [address] [place], [address] RDW SD 46.9 fl High 35.1-43.[address] [facility] Comment on above: Order Comment: 304-1 Performed By: #### L 500.2500, L100.0500 #### [facility] [address] [place], [address] WBC (Bld) [#/Vol] 5.5 10*3/uL Normal 4.4-11.0 [facility] Comment on above: Order Comment: 304-1 Performed By: #### L 500.2500, L100.0500 #### [facility] [address] [place], [address] Carbon dioxide measurementOr dered By: Patricio Yee on 06-23-2024 CO2 [Moles/Vol] 31.0 mmol/L 21.0-32.[address] [facility] Chloride measurementOrdered By: Patricio Yee on 06-23-2024 Chloride [Moles/Vol] 102 mmol/L 98-107 [facility] Erythrocyte distribution wid th ratioOrdered By: Patricio Yee on 06-23-2024 Erythrocyte distribution width (RBC) [Ratio] 13.9 % 11.6-14.[address] [facility] Erythrocyte distribution wid th standard deviationOrdered By: Patricio Yee on 06-23-2024 Erythrocyte distribution width (RBC) [Entitic vol] 46.9 fL High 35.1-43.[address] [facility] Estimated glomerular filtrat ion rate (GFR) AmericanOrdered By: Patricio Yee on 06-23-2024 Estimated GFR (MDRD) Amer 130 mL/min >[address] [facility] Comment on above: GFR Calc Glomerular filtration rate ( GFR) estimationOrdered By: Patricio Yee on 06-23-2024 Estimated GFR (MDRD) Non-Af Amer 108 mL/min >[address] [facility] Comment on above: Non- GFR Calc Glucose measurementOrdered B y: Patricio Yee on 06-23-2024 Glucose [Mass/Vol] 203 mg/dL High 74-106 [facility] Comment on above: Glucose result great er than or equal to 200 mg/dLsuggests DIABETES MELLITUS per A.D.A. criteria. Hematocrit Auto (Bld) [Volum e fraction]Ordered By: Patricio Yee on 06-23-2024 Hematocrit (Bld) [Volume fraction] 31.6 % Low 37-[address] [facility] Hemoglobin measurementOrdere d By: Patricio Yee on 06-23-2024 Hemoglobin (Bld) [Mass/Vol] 10.4 g/dL Low 12.0-15.[address] [facility] MCV (mean corpuscular volume ) determinationOrdered By: Patricio Yee on 06-23-2024 MCV (RBC) [Entitic vol] 92.1 fL 81-99 [facility] Mean corpuscular hemoglobin (MCH) determinationOrdered By: Patricio Yee on 06-23-2024 MCH (RBC) [Entitic mass] 30.3 pg 27.0-32.[address] [facility] Mean corpuscular hemoglobin concentration (MCHC) determinationOrdered By: Patricio Yee on 06-23-2024 MCHC (RBC) [Mass/Vol] 32.9 g/dL 32-36 [facility] Mean platelet volume determi nationOrdered By: Patricio Yee on 06-23-2024 Platelet mean volume (Bld) [Entitic vol] 9.5 fL 6.2-12.[address] [facility] Platelet countOrdered By: Korey Cano on 06-23-2024 Platelets (Bld) [#/Vol] 256 10*3/uL 150-[address] [facility] Potassium measurementOrdered By: Patricio Yee on 06-23-2024 Potassium [Moles/Vol] 3.8 mmol/L 3.5-5.1 [facility] RBC Auto (Bld) [#/Vol]Ordere d By: Patricio Yee on 06-23-2024 RBC (Bld) [#/Vol] 3.43 10*6/uL Low 4.2-5.4 [facility] Serum anion gap measurementO rdered By: Patricio Yee on 06-23-2024 Anion gap [Moles/Vol] 4 mmol/L Low 5-15 [facility] Serum or plasma calcium josiane urement (mass/volume)Ordered By: Patricio Yee on 06-23-2024 Calcium [Mass/Vol] 8.0 mg/dL Low 8.5-10.1 [facility] Serum or plasma creatinine m easurement (mass/volume)Ordered By: Patricio Yee on 06-23-2024 Creatinine [Mass/Vol] 0.58 mg/dL 0.55-1.02 [facility] Comment on above: The validity of the calculated GFR & GFRAA in patients over 70 years has not been determined. Clinical correlation is essential. Serum or plasma urea nitroge n measurement (mass/volume)Ordered By: Patricio Yee on 06-23-2024 Urea nitrogen [Mass/Vol] 11 mg/dL 7-[address] [facility] Sodium levelOrdered By: Jeffy Yee on 06-23-2024 Sodium [Moles/Vol] 137 mmol/L 136-145 [facility] White blood cell (WBC) count Ordered By: Patricio Yee on 06-23-2024 WBC (Bld) [#/Vol] 5.5 10*3/uL 4.4-11.0 [facility] [id number] 06-20-2024 [id number] Next Site of Care Admission Date: 06/13/2024 04:36 PM Patient Name: MARCIA ROONEY Location: [address]/[facility] [id number] A Date of : 1945 Placement Information Referral Type:[facility] - Return Referral ID:[id number] Provider Name:[employer] [employer] Address 1:[address] [place] [address] Address 2: City:[place] Selection Factors:Returning to Facility State:[place] [facility] [phone] Discharge med list transmitted to return back to [facility] via [facility] per [facility] request. 7000 was entered into [facility] for the SNF- Facility is aware [facility] [phone] compound worker received a secured message from [facility] to arrange transportation to [facility]. compound worker arranged transportation via [employer]. L:ydara confirmed for 3:00p. compound worker notified facility and treatment team. compound worker left voicemail for Elsi. . [facility] [phone] Awaiting [employer] auth to return to [facility]. [facility] will continue to follow. The time of this note does not reflect the actual time patient was seen and assessed but instead the time of this documentation. Normal [facility] Laboratory - Chemistry and C hemistry - challengeon 06-20-2024 Glucose [Mass/Vol] 144 mg/dL High 70 - 100 mg/dL [facility] Glucose [Mass/Vol] 165 mg/dL High 70 - 100 mg/dL [facility] No Panel Informationon 06-20 Interpretation and review of laboratory results Abnormal [facility] Performed [facility]: [facility] [address] [facility] [address] CLIA ID: [id number] [facility] Interpretation and review of laboratory results Abnormal [facility] Performed by: [facility], [address] [facility] [address] CLIA ID: [id number] [facility] Nursing Noteon 06-20-2024 Nursing Note Report called to Sandy OLIVEIRA at [facility]. Normal [facility] Progress Noteon 06-20-2024 Progress Note OCCUPATIONAL THERAPY [facility] Treatment Note Name/MRN: Marcia Rooney ([id number]) Date of : 1945 Age: 78 y.o. Room/Bed: B4466/B4466 A Visit #: 4 out of 6 visits Discharge Recommendation: Snf Facility Equipment Needed: No Prior Level of Function Prior Level of ADL Function: Required Assist Prior Level of Mobility: Required Assist; Device: Front wheeled walker Prior Level of Transfers: Required Assist Assessment Pt tolerated session fairly well and is making progress with OT POC. She completed bed mobility with SBA-Min A, STS with Mod-Min A, stand step transfer with Min A, and standing balance with CGA. She required Max A-Total A for LE dressing, Max A for toileting tasks, and SBA-CGA for grooming tasks. Pt is limited by impaired strength, balance, endurance, and cognition. Pt is functioning below baseline and is a high fall risk. She would continue to benefit from skilled OT services in order to increase safety and maximize indep in occupational participation. OT rec is SNF upon planned discharge. Subjective Pt supine in bed upon arrival, pleasant and agreeable. Per RN, pt okay to see. Pleasantly confused Pain: Pt denies any current pain. Medical Precautions: [employer] PPE donned/doffed in accordance with facility standards. Fall Risk: Jacinto Fall Risk Score: 100 (High Risk) Precautions/Restrict ions: Fall Precautions Family/Caregiver Present: none Objective ADLs LE Dressing: Max Assist, Dependent Toileting: Max Assist Grooming: SBA, Contact Guard, after setup Pt completed LE dressing to doff/don brief with Max A-Total A, she required Total A to doff brief in standing d/t heavy reliance on FWW. Max A to don brief, she required assist for threading BLEs and was able to minimally assist with pulling brief up over hips. Pt incontinent with urine upon arrival. She was able to minimally assist with pericare, she required Max A for thoroughness and backside hygiene. Pt performed grooming tasks at sink level with FWW and CGA for approx 2 min before reporting she felt like her L knee was going to buckle, CGA for ~4 steps backwards to return to EOB. She completed grooming tasks seated EOB with SBA after set up. She did not require cues for grooming tasks. Bed Mobility Supine to sit: SBA Sit to supine: Min Assist Pt completed bed mobility from supine to EOB with SBA, HOB elevated and with use of bed rails. She required Min A to return to supine for bringing BLEs into bed. VC's for sequencing with fair carry over. Increased time to complete. Denied dizziness with positional changes. Transfers/Mobility Sit to stand: Mod Assist Stand to sit: Min Assist Stand step: Min Assist Standing balance: Contact Guard Pt completed x4 STS to/from EOB to FWW with Mod A for elevation an Min A for controlled descent. She demo'd good hand palcement for push up from/reach back to seated surface. Min A for stand step transfer, pt performed approx 4 steps forwards/backwards and 3 lateral steps to the HOB. She demo'd slight instability and heavy reliance on FWW. Pt completed dynamic standing balance at FWW with CGA for approx 2 min, she demonstrated reaching outside KACY and across midline with fair balance. Pt reported feeling like her L knee was going to buckle and returned to sitting EOB with CGA. 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 Safety/Education Safety Safety Devices in place: All fall risk precautions in place, call light within reach, left in bed, bed alarm in place, gait belt, patient at risk for falls, nurse notified, and no alarms engaged upon entry Restraints: No Education Education Given To: patient Education Provided: OT Role, Plan of Care, Transfer Training, Energy Conservation, Fall Prevention Education, Discharge Recommendations, and Benefits of Increasing Activity Education Method: Verbal, Demonstration, and Teach Back Barriers to Learning: Cognition Education Outcome: Verbalized Understanding, Demonstrated Understanding, and Continued Education Needed AM-PAC AM-PAC Inpatient Daily Activity Raw Score: 17 ADL Inpatient CMS G-Code Modifier: CK Goals Patient Stated Goal: did not state Encounter Problems Encounter Problems (Active) Balanc (more content not included)... Normal [facility] BASIC METABOLIC PANELon 11-2 Anion gap [Moles/Vol] 2 mmol/L Low 3-13 [facility] Comment on above: Performed By: #### L [id number] ####Editorial Project Manager: IRWIN CONTRERAS ([id number])[facility] (SBHLAB)[address] [place] [address] Calcium [Mass/Vol] 8.1 mg/dL Low 8.4-10.4 [facility] Comment on above: Performed By: #### L AB15 ####Editorial Project Manager: IRWIN CONTRERAS ([id number])[facility] (SB[facility])[address] [place] [address] Chloride [Moles/Vol] 107 mmol/L Normal 98-107 [facility] Comment on above: Performed By: #### L AB15 ####Editorial Project Manager: IRWIN CONTRERAS ([id number])[facility] MAGDALENO (SBHLAB)[address] [place] [address] [place] CO2 [Moles/Vol] 25 mmol/L Normal 22-30 [facility] Comment on above: Performed By: #### L AB15 ####Editorial Project Manager: IRWIN CONTRERAS ([id number])[facility] MILL[facility] (SBHLAB)[address] Creatinine [Mass/Vol] 0.72 mg/dL Normal 0.52-1.04 [facility] Comment on above: Performed By: #### L AB15 ####Editorial Project Manager: IRWIN CONTRERAS ([id number])[facility] (SBHLAB)[address] GLOMERULAR FILTRATION RATE ML/MIN/1.73 SQ M.PREDICTED 85.7 mL/min/1.73m*2 Normal >60.0 [facility] Comment on above: Result Comment: Calc ulation based on the Chronic Kidney Disease Epidemiology Collaboration (CKD-EPI) equation refit without adjustment for race Performed By: #### L AB15 ####Editorial Project Manager: IRWIN CONTRERAS ([id number])[facility] (SBHLAB)[address] Glucose [Mass/Vol] 128 mg/dL High 70-100 [facility] Comment on above: Performed By: #### L AB15 ####Editorial Project Manager: IRWIN CONTRERAS ([id number])[facility] (SBHLAB)[address] [place] [address] [place] Potassium [Moles/Vol] 4.3 mmol/L Normal 3.5-5.1 [facility] Comment on above: Performed By: #### L AB15 ####Editorial Project Manager: IRWIN CONTRERAS ([id number])[facility] (SBHLAB)[address] [place] [address] [place] Sodium [Moles/Vol] 134 mmol/L Low 135-145 [facility] Comment on above: Performed By: #### L AB15 ####Editorial Project Manager: IRWIN CONTRERAS ([id number])[facility] ABDIELREHABIL[facility] HOSP[facility] S[facility] MEXICOBennett (SBHLAB)[address] Urea nitrogen [Mass/Vol] 15 mg/dL Normal 7-17 [facility] Comment on above: Performed By: #### L AB15 ####Editorial Project Manager: IRWIN CONTRERAS ([id number])[facility] ABDIELREHABILITATION HOSP[facility] S[facility] MEXICOBennett (SBHLAB)[address] Basic metabolic 1998 panelon 06-19-2024 Anion gap [Moles/Vol] 2 mmol/L Low 3 - 13 mmol/L [facility] Calcium [Mass/Vol] 8.1 mg/dL Low 8.4 - 10. 4 mg/dL [facility] Chloride [Moles/Vol] 107 mmol/L 98 - 10 7 mmol/L [facility] CO2 [Moles/Vol] 25 mmol/L 22 - 30 mmol/L [facility] Creatinine [Mass/Vol] 0.72 mg/dL 0.52 - 1.04 mg/dL [facility] GFR/1.73 sq M.predicted (S/P/Bld) [Vol rate/Area] 85.7 mL/min - PINF [facility] Comment on above: Calculation based on the Chronic Kidney Disease Epidemiology Collaboration (CKD-EPI) equation refit without adjustment for race Glucose [Mass/Vol] 128 mg/dL High 70 - 100 mg/dL [facility] Interpretation and review of laboratory results Abnormal [facility] Potassium [Moles/Vol] 4.3 mmol/L 3.5 - 5.1 mmol/L [facility] Sodium [Moles/Vol] 134 mmol/L Low 135 - 145 mmol/L [facility] Urea nitrogen [Mass/Vol] 15 mg/dL 7 - 17 mg/d L [facility] CBC W Auto Differential pane l (Bld)on 06-19-2024 Basophils (Bld) [#/Vol] 0 10*3/uL 0.0 - 0.2 10*3/uL [facility] Basophils/100 WBC (Bld) 0 % 0.0 - 2.0 % [facility] Eosinophils (Bld) [#/Vol] 0 10*3/uL 0.0 - 0.5 10*3/uL [facility] Eosinophils/100 WBC (Bld) 0.1 % 0.0 - 6.0 % [facility] Erythrocyte distribution width (RBC) [Ratio] 13.4 % 11.5 - 15.0 % [facility] Hematocrit (Bld) [Volume fraction] 29.1 % Low 35.0 - 47.0 % [facility] Hemoglobin (Bld) [Mass/Vol] 9.1 g/dL Low 11.7 - 16.0 g/dL [facility] Immature granulocytes (Bld) [#/Vol] 0.1 10*3/uL High NINF - 0.1 10*3/uL [facility] Immature granulocytes/100 WBC (Bld) 1.7 % 0.0 - 2.0 % [facility] Interpretation and review of laboratory results Abnormal [facility] Lymphocytes (Bld) [#/Vol] 0.8 10*3/uL Low 1.0 - 4.3 10*3/uL [facility] Lymphocytes/100 WBC (Bld) 10.7 % Low 15.0 - 45.0 % [facility] MCH (RBC) [Entitic mass] 29.6 pg 26. 0 - 34.0 pg [facility] MCHC (RBC) [Mass/Vol] 31.3 % 30.5 - 36.0 % [facility] MCV (RBC) [Entitic vol] 94.8 fL 77.0 - 99.0 fL [facility] Monocytes (Bld) [#/Vol] 0.4 10*3/uL 0.0 - 0.9 10*3/uL [facility] Monocytes/100 WBC (Bld) 5.7 % 5.0 - 13.0 % [facility] Neutrophils (Bld) [#/Vol] 6.3 10*3/uL 1.8 - 7.5 10*3/uL [facility] Neutrophils/100 WBC (Bld) 81.8 % 38.0 - 82.0 % [facility] Nucleated RBC/100 WBC (Bld) [Ratio] 0 % [facility] [place] Platelet mean volume (Bld) [Entitic vol] 9.5 fL 9.0 - 12.7 fL [facility] Platelets (Bld) [#/Vol] 304 10*3/uL 140 - 440 10*3/uL [facility] RBC (Bld) [#/Vol] 3.07 10*6/uL Low 3.80 - 5.2 0 10*6/uL [facility] WBC (Bld) [#/Vol] 7.7 10*3/uL 3.6 - 10.7 10*3/uL [facility] CBC WITH AUTO DIFFERENTIALon 06-19-2024 Basophils (Bld) [#/Vol] 0.0 10*3/uL Normal 0.0-0.2 [facility] Comment on above: Performed By: #### L [id number] ####Editorial Project Manager: IRWIN CONTRERAS ([id number])[facility] (SBHLAB)[address] Basophils/100 WBC (Bld) 0.0 % Normal 0.0-2.0 [facility] Comment on above: Performed By: #### L [id number] ####Editorial Project Manager: IRWIN CONTRERAS ([id number])[facility] [place] (SBHLAB)[address] [place] [address] Eosinophils (Bld) [#/Vol] 0.0 10*3/uL Normal 0.0-0.5 [facility] Comment on above: Performed By: #### L [id number] ####Editorial Project Manager: IRWIN CONTRERAS ([id number])[facility] [place] (SBHLAB)[address] [place] [address] Eosinophils/100 WBC (Bld) 0.1 % Normal 0.0-6.0 [facility] Comment on above: Performed By: #### L [id number] ####Editorial Project Manager: IRWIN CONTRERAS ([id number])[facility] [place] (SBHLAB)[address] [place] [address] Erythrocyte distribution width (RBC) [Ratio] 13.4 % Normal 11.5-15.0 [facility] Comment on above: Performed By: #### L [id number] ####Editorial Project Manager: IRWIN CONTRERAS ([id number])[facility] [place] (SBHLAB)[address] [place] [address] Hematocrit (Bld) [Volume fraction] 29.1 % Low 35.0-47.0 [facility] Comment on above: Performed By: #### L [id number] ####Editorial Project Manager: IRWIN CONTRERAS ([id number])[facility] [place] (SBAB)[address] Hemoglobin (Bld) [Mass/Vol] 9.1 g/dL Low 11.7-16.0 [facility] Comment on above: Performed By: #### L [id number] ####Editorial Project Manager: IRWIN CONTRERAS ([id number])[facility] [place] (SBAB)[address] IMMATURE GRANS % 1.7 % Normal 0.0-2.0 [facility] Comment on above: Performed By: #### L [id number] ####Editorial Project Manager: IRWIN CONTRERAS ([id number])[facility] ([facility])[address] IMMATURE GRANS ABSOLUTE 0.1 10*3/uL High <0.1 [facility] Comment on above: Performed By: #### L [id number] ####Editorial Project Manager: IRWIN CONTRERAS ([id number])[facility] ([facility])[address] [place] [address] Lymphocytes (Bld) [#/Vol] 0.8 10*3/uL Low 1.0-4.3 [facility] Comment on above: Performed By: #### L [id number] ####Editorial Project Manager: IRWIN CONTRERAS ([id number])[facility] (SBAB)[address] [place] [address] Lymphocytes/100 WBC (Bld) 10.7 % Low 15.0-45.0 [facility] Comment on above: Performed By: #### L [id number] ####Editorial Project Manager: IRWIN COTNRERAS ([id number])[facility] ([facility])[address] [place] [address] MCH (RBC) [Entitic mass] 29.6 pg Normal 26.0-34.0 [facility] Comment on above: Performed By: #### L [id number] ####Editorial Project Manager: IRWIN CONTRERAS ([id number])[facility] BARBJONATANN (SBHLAB)[address] [place] [address] MCHC 31.3 % Normal 30.5-36.0 [facility] Comment on above: Performed By: #### L [id number] ####Editorial Project Manager: IRWIN RUELASEBONY ([id number])[facility] [place] (SBHLAB)[address] MCV (RBC) [Entitic vol] 94.8 fL Normal 77.0-99.0 [facility] Comment on above: Performed By: #### L [id number] ####Editorial Project Manager: IRWIN RUELASEBONY ([id number])[facility] [place] (SBHLAB)[address] [place] [address] Monocytes (Bld) [#/Vol] 0.4 10*3/uL Normal 0.0-0.9 [facility] Comment on above: Performed By: #### L [id number] ####Editorial Project Manager: IRIWN CONTRERAS ([id number])[facility] [place] (SBHLAB)[address] [place] [address] Monocytes/100 WBC (Bld) 5.7 % Normal 5.0-13.0 [facility] Comment on above: Performed By: #### L [id number] ####Editorial Project Manager: IRWIN CONTRERAS ([id number])[facility] [place] (SBHLAB)[address] [place] [address] NEUTROPHILS ABSOLUTE 6.3 10*3/uL Normal 1.8-7.5 [facility] Comment on above: Performed By: #### L [id number] ####Editorial Project Manager: IRWIN CONTRERAS ([id number])[facility] [place] (SBHLAB)[address] [place] [address] Neutrophils/100 WBC (Bld) 81.8 % Normal 38.0-82.0 [facility] Comment on above: Performed By: #### L [id number] ####Editorial Project Manager: IRWIN CONTRERAS ([id number])[facility]av[facility] MILLERBennett (SBHLAB)[address] NRBC 0.0 /100 WBCs Normal 0.0-2.0 [facility] Comment on above: Performed By: #### L [id number] ####Editorial Project Manager: IRWIN CONTRERAS ([id number])[facility] MILLERBennett (SBHLAB)[address] Platelet mean volume (Bld) [Entitic vol] 9.5 fL Normal 9.0-12.7 [facility] Comment on above: Performed By: #### L [id number] ####Editorial Project Manager: IRWIN CONTRERAS ([id number])[facility]LLEREHAB[facility] H[facility] MEXICOBennett (SBHLAB)[address] [place] [address] Platelets (Bld) [#/Vol] 304 10*3/uL Normal 140-440 [facility] Comment on above: Performed By: #### L [id number] ####Editorial Project Manager: IRWIN CONTRERAS ([id number])[facility]LLEREHABILITATION HOSP[facility] S[facility] MEXICOBennett (SBHLAB)[address] RBC (Bld) [#/Vol] 3.07 10*6/uL Low 3.80-5.20 [facility] Comment on above: Performed By: #### L [id number] ####Editorial Project Manager: IRWIN CONTRERAS ([id number])[facility]LLEREHABIL[facility]ATION H[facility] S[facility] MEXICOBennett (SBHLAB)[address] WBC (Bld) [#/Vol] 7.7 10*3/uL Normal 3.6-10.7 [facility] Comment on above: Performed By: #### L [id number] ####Editorial Project Manager: IRWIN CONTRERAS ([id number])[facility] MICHELLESHAINA (SBHLAB)[address] Laboratory - Chemistry and C hemistry - challengeon 06-19-2024 Glucose [Mass/Vol] 281 mg/dL High 70 - 100 mg/dL [facility] Glucose [Mass/Vol] 262 mg/dL High 70 - 100 mg/dL [facility] Glucose [Mass/Vol] 204 mg/dL High 70 - 100 mg/dL [facility] Glucose [Mass/Vol] 131 mg/dL High 70 - 100 mg/dL [facility] No Panel Informationon 06-19 Interpretation and review of laboratory results Abnormal [facility] Performed by: [facility], [address] [place] [id number] CLIA ID: [id number] [facility] [place] [facility] Interpretation and review of laboratory results Abnormal [facility] Performed by: [facility] [place] [facility], [address] [facility], [facility] [address] CLIA ID: [id number] [facility] [place] [facility] Interpretation and review of laboratory results Abnormal [facility] Performed by: [facility] [place] [facility], [address], [facility] [address] CLIA ID: [id number] [facility] [place] [facility] Interpretation and review of laboratory results Abnormal [facility] [place] Performed by: [facility], [address] [place] [address] CLIA ID: [id number] [facility] [place] [facility] [id number] 06-18-2024 [id number] Care Managment Initial Assessment Date: 06/18/2024 Patient Name: Marcia Rooney : 1945 Patient Information Source of Information: Patient Hand Candy Cutter Name/Contact Information: Chiquis DEL TORO/ MARC Calzada Cognition/Language: Confused at baseline Permission given to speak with patient cash application representative/careg iver as indicated: Yes Confirmation of Payer with patient/family: Yes Payer Name: Jeanne [facility] Condon: No Confirmation of Primary Care Physician: Confirmed PCP Name: Jamaal Chino's Editorial Project Manager Seen in last 2 years?: Yes Primary Caregiver: ([facility] staff) If assistance needed, confirmed caregiver ready, willing and able to care for patient at discharge: Yes Confirmed with: Chiquis fromJamaal Living Arrangements Current Residence: Number of Floors Number of Entry Steps: Bed/Bath Levels: Facility: Nursing Facility Skilled Facility Name: [facility] Plan to Return: Yes Lives with: (SNF staff and residents) Support Systems: Children, Family members, Friends/neighbors, Comments (Other) (SNF staff and residents) Activities of Daily Living Ambulation: Assistance (Uses WW) Bathing/Dressing: Assistance Elimination/Continen ce/Toileting: Assistance Feeding: Independent Who Assists with Activities of Daily Living: [place] aides Instrumental Activities of Daily Living Prescription Coverage: Yes Pharmacy Used: [facility] Medication Management: ([place] nurses manage meds) Transportation/Shopp ing: Assistance Provider Transportation/Shopp ing Assistance Provider Name: [place]'s bus Transportation Mode: Senior/disability transport service Needs Assistance with Transportation at Discharge: Yes (Will need CONSTRUCTION ENGINEER to set up return transport) Meal Preparation: Assistance Provider Meal Prep Assistance Provider Name: [place] staff Laundry/Cleaning: Assistance Provider Laundry/Cleaning Assistance Provider Name: [place] staff Finances/Bill Paying: Assistance Provider Finances/Bill Payer Assistance Provider Name: Son and MARC Calzada Communication: Independent Types of Care Services/Equipment Utilized Care Services: Dialysis Type: Durable Medical Equipment: Walker, Raised Toilet Seat, Shower Seat, Other (Comment) (Grab bars) Patient's Goal/Discharge Plan Patient expects to be discharged to: Return to SNF Discharge Planning Actions: Continue to follow, Snf Facility referral indicated [place] of choice: [place] of choice discussed, Choice list provided Patient's Choice Rights and [employer] and Collaborative Relationships Disclosed as Indicated for Post-Acute Care: Yes Interdisciplinary Team Engagement: PT/OT, Disease Management Program Social Work Referral for: Additional Information: Pt here from [facility] for Cov[facility]. Today is last day of and Jun, to start insurance auth. BIG DATA DEVELOPER tasked in [facility] to initiate [employer] pre-cert. Message left again for MARC Calzada. Will need return transport set up. TCC will continue to follow. Vero Molina RN [facility] BASIC METABOLIC PANELon - Anion gap [Moles/Vol] 2 mmol/L Low 3-13 [facility] Comment on above: Performed By: #### L [id number] ####Editorial Project Manager: IRWIN CONTRERAS ([id number])[facility] MICHELLESHAINA (SBHLAB)[address] Calcium [Mass/Vol] 7.8 mg/dL Low 8.4-10.4 [facility] Comment on above: Performed By: #### L AB15 ####Editorial Project Manager: IRWIN CONTRERAS ([id number])[facility]BRE[facility]AB[facility] (SBHLAB)[address] Chloride [Moles/Vol] 107 mmol/L Normal 98-107 [facility] Comment on above: Performed By: #### L AB15 ####Editorial Project Manager: IRWIN CONTRERAS ([id number])[facility] (SBHLAB)[address] CO2 [Moles/Vol] 25 mmol/L Normal 22-30 [facility] Comment on above: Performed By: #### L AB15 ####Editorial Project Manager: IRWIN CONTRERAS ([id number])[facility] [place] (SBHLAB)[address] Creatinine [Mass/Vol] 0.63 mg/dL Normal 0.52-1.04 [facility] Comment on above: Performed By: #### L AB15 ####Editorial Project Manager: IRWIN CONTRERAS ([id number])[facility] (SBHLAB)[address] GLOMERULAR FILTRATION RATE ML/MIN/1.73 SQ M.PREDICTED >90.0 Normal >60.0 [facility] Comment on above: Result Comment: Calc ulation based on the Chronic Kidney Disease Epidemiology Collaboration (CKD-EPI) equation refit without adjustment for race Performed By: #### L AB15 ####Editorial Project Manager: IRWIN CONTRERAS ([id number])[facility] (SBHLAB)[address] Glucose [Mass/Vol] 190 mg/dL High 70-100 [facility] Comment on above: Performed By: #### L AB15 ####Editorial Project Manager: IRWIN CONTRERAS ([id number])[facility] MAGDALENO (SBHLAB)[address] Potassium [Moles/Vol] 3.6 mmol/L Normal 3.5-5.1 [facility] Comment on above: Performed By: #### L AB15 ####Editorial Project Manager: IRWIN CONTRERAS ([id number])[facility] [place] (SBHLAB)[address] Sodium [Moles/Vol] 133 mmol/L Low 135-145 [facility] Comment on above: Performed By: #### L AB15 ####Editorial Project Manager: IRWIN CONTRERAS ([id number])[facility] (SBHLAB)[address] Urea nitrogen [Mass/Vol] 18 mg/dL High 7-17 [facility] Comment on above: Performed By: #### L AB15 ####Editorial Project Manager: IRWIN CONTRERAS ([id number])[facility] (SBHLAB)[address] Basic metabolic 1998 panelon 06-18-2024 Anion gap [Moles/Vol] 2 mmol/L Low 3 - 13 mmol/L [facility] Calcium [Mass/Vol] 7.8 mg/dL Low 8.4 - 10. 4 mg/dL [facility] Chloride [Moles/Vol] 107 mmol/L 98 - 10 7 mmol/L [facility] CO2 [Moles/Vol] 25 mmol/L 22 - 30 mmol/L [facility] Creatinine [Mass/Vol] 0.63 mg/dL 0.52 - 1.04 mg/dL [facility] GFR/1.73 sq M.predicted (S/P/Bld) [Vol rate/Area] - PINF [facility] Comment on above: Calculation based on the Chronic Kidney Disease Epidemiology Collaboration (CKD-EPI) equation refit without adjustment for race Glucose [Mass/Vol] 190 mg/dL High 70 - 100 mg/dL [facility] Interpretation and review of laboratory results Abnormal [facility] Potassium [Moles/Vol] 3.6 mmol/L 3.5 - 5.1 mmol/L [facility] Sodium [Moles/Vol] 133 mmol/L Low 135 - 145 mmol/L [facility] Urea nitrogen [Mass/Vol] 18 mg/dL High 7 - 17 mg/d L [facility] CBC W Auto Differential pane l (Bld)on 06-18-2024 Basophils (Bld) [#/Vol] 0 10*3/uL 0.0 - 0.2 10*3/uL [facility] Basophils/100 WBC (Bld) 0 % 0.0 - 2.0 % [facility] Eosinophils (Bld) [#/Vol] 0 10*3/uL 0.0 - 0.5 10*3/uL [facility] Eosinophils/100 WBC (Bld) 0.2 % 0.0 - 6.0 % [facility] Erythrocyte distribution width (RBC) [Ratio] 13.4 % 11.5 - 15.0 % [facility] Hematocrit (Bld) [Volume fraction] 28.4 % Low 35.0 - 47.0 % [facility] Hemoglobin (Bld) [Mass/Vol] 9.1 g/dL Low 11.7 - 16.0 g/dL [facility] Immature granulocytes (Bld) [#/Vol] 0.1 10*3/uL High NINF - 0.1 10*3/uL [facility] Immature granulocytes/100 WBC (Bld) 1.1 % 0.0 - 2.0 % [facility] Interpretation and review of laboratory results Abnormal [facility] Lymphocytes (Bld) [#/Vol] 0.8 10*3/uL Low 1.0 - 4.3 10*3/uL [facility] Lymphocytes/100 WBC (Bld) 12.4 % Low 15.0 - 45.0 % [facility] MCH (RBC) [Entitic mass] 30.1 pg 26. 0 - 34.0 pg [facility] MCHC (RBC) [Mass/Vol] 32 % 30.5 - 36.0 % [facility] MCV (RBC) [Entitic vol] 94 fL 77.0 - 99.0 fL [facility] Monocytes (Bld) [#/Vol] 0.6 10*3/uL 0.0 - 0.9 10*3/uL [facility] Monocytes/100 WBC (Bld) 9 % 5.0 - 13.0 % [facility] Neutrophils (Bld) [#/Vol] 4.8 10*3/uL 1.8 - 7.5 10*3/uL [facility] Neutrophils/100 WBC (Bld) 77.3 % 38.0 - 82.0 % [facility] Nucleated RBC/100 WBC (Bld) [Ratio] 0 % [facility] Platelet mean volume (Bld) [Entitic vol] 9.5 fL 9.0 - 12.7 fL [facility] Platelets (Bld) [#/Vol] 241 10*3/uL 140 - 440 10*3/uL [facility] RBC (Bld) [#/Vol] 3.02 10*6/uL Low 3.80 - 5.2 0 10*6/uL [facility] WBC (Bld) [#/Vol] 6.2 10*3/uL 3.6 - 10.7 10*3/uL [facility] CBC WITH AUTO DIFFERENTIALon 06-18-2024 Basophils (Bld) [#/Vol] 0.0 10*3/uL Normal 0.0-0.2 [facility] Comment on above: Performed By: #### L [id number] ####Editorial Project Manager: IRWIN CONTRERAS ([id number])[facility] ([facility])[address] [place] [address] Basophils/100 WBC (Bld) 0.0 % Normal 0.0-2.0 [facility] Comment on above: Performed By: #### L [id number] ####Editorial Project Manager: IRWIN CONTRERAS ([id number])[facility])[address] Eosinophils (Bld) [#/Vol] 0.0 10*3/uL Normal 0.0-0.5 [facility] Comment on above: Performed By: #### L [id number] ####Editorial Project Manager: IRWIN CONTRERAS ([id number])[facility] ([facility])[address] Eosinophils/100 WBC (Bld) 0.2 % Normal 0.0-6.0 [facility] Comment on above: Performed By: #### L [id number] ####Editorial Project Manager: IRWIN SALAZRAJhonathanEBONY ([id number])[facility])[address] [place] [address] Erythrocyte distribution width (RBC) [Ratio] 13.4 % Normal 11.5-15.0 [facility] Comment on above: Performed By: #### L [id number] ####Editorial Project Manager: IRWIN RUELASEBONY ([id number])[facility])[address] Hematocrit (Bld) [Volume fraction] 28.4 % Low 35.0-47.0 [facility] Comment on above: Performed By: #### L [id number] ####Editorial Project Manager: IRWIN DIANE ([id number])[facility] ([facility])[address] [place] [address] Hemoglobin (Bld) [Mass/Vol] 9.1 g/dL Low 11.7-16.0 [facility] Comment on above: Performed By: #### L [id number] ####Editorial Project Manager: IRWIN CONTRERAS ([id number])[facility] ([facility])[address] [place] [address] IMMATURE GRANS % 1.1 % Normal 0.0-2.0 [facility] Comment on above: Performed By: #### L [id number] ####Editorial Project Manager: IRWIN RUELASEBONY ([id number])[facility] ([facility])[address] [place] [address] IMMATURE GRANS ABSOLUTE 0.1 10*3/uL High <0.1 [facility] Comment on above: Performed By: #### L [id number] ####Editorial Project Manager: IRWIN CONTRERAS ([id number])[facility] ([facility])[address] [place] [address] Lymphocytes (Bld) [#/Vol] 0.8 10*3/uL Low 1.0-4.3 [facility] Comment on above: Performed By: #### L [id number] ####Editorial Project Manager: IRWIN RUELASEBONY ([id number])[facility] MICHELLESHAINA (SBHLAB)[address] Lymphocytes/100 WBC (Bld) 12.4 % Low 15.0-45.0 [facility] Comment on above: Performed By: #### L [id number] ####Editorial Project Manager: IRWIN CONTRERAS ([id number])[facility] (SBHLAB)[address] MCH (RBC) [Entitic mass] 30.1 pg Normal 26.0-34.0 [facility] Comment on above: Performed By: #### L [id number] ####Editorial Project Manager: IRWIN SALAZARJhonathanEBONY ([id number])[facility] MILLERBennett (SBHLAB)[address] MCHC 32.0 % Normal 30.5-36.0 [facility] Comment on above: Performed By: #### L [id number] ####Editorial Project Manager: IRWIN RUELASEBONY ([id number])[facility] MEXICOBennett (SBHLAB)[address] MCV (RBC) [Entitic vol] 94.0 fL Normal 77.0-99.0 [facility] Comment on above: Performed By: #### L [id number] ####Editorial Project Manager: IRWIN CONTRERAS ([id number])[facility] MEXICOBennett (SBHLAB)[address] Monocytes (Bld) [#/Vol] 0.6 10*3/uL Normal 0.0-0.9 [facility] Comment on above: Performed By: #### L [id number] ####Editorial Project Manager: IRWIN CONTRERAS ([id number])[facility] (SBHLAB)[address] Monocytes/100 WBC (Bld) 9.0 % Normal 5.0-13.0 [facility] Comment on above: Performed By: #### L [id number] ####Editorial Project Manager: IRWIN RUELASEBONY ([id number])[facility] [place] (SBHLAB)[address] NEUTROPHILS ABSOLUTE 4.8 10*3/uL Normal 1.8-7.5 [facility] Comment on above: Performed By: #### L [id number] ####Editorial Project Manager: IRWIN RUELASEBONY ([id number])[facility] [place] (SBHLAB)[address] Neutrophils/100 WBC (Bld) 77.3 % Normal 38.0-82.0 [facility] Comment on above: Performed By: #### L [id number] ####Editorial Project Manager: IRWIN SALAZARJARRETT ([id number])[facility] [place] (SB[facility])[address] [place] [address] NRBC 0.0 /100 WBCs Normal 0.0-2.0 [facility] Comment on above: Performed By: #### L [id number] ####Editorial Project Manager: IRWIN RUELASEBONY ([id number])[facility] [place] (SBHLAB)[address] Platelet mean volume (Bld) [Entitic vol] 9.5 fL Normal 9.0-12.7 [facility] Comment on above: Performed By: #### L [id number] ####Editorial Project Manager: IRWIN CONTRERAS ([id number])[facility] [place] (SBHLAB)[address] Platelets (Bld) [#/Vol] 241 10*3/uL Normal 140-440 [facility] Comment on above: Performed By: #### L [id number] ####Editorial Project Manager: IRWIN RUELASEBONY ([id number])[facility] [place] (SBHLAB)[address] RBC (Bld) [#/Vol] 3.02 10*6/uL Low 3.80-5.20 [facility] Comment on above: Performed By: #### L [id number] ####Editorial Project Manager: IRWIN CONTRERAS ([id number])[facility] ([facility])[address] [place] [address] WBC (Bld) [#/Vol] 6.2 10*3/uL Normal 3.6-10.7 [facility] Comment on above: Performed By: #### L [id number] ####Editorial Project Manager: IRWIN JESSENIAEBONY ([id number])[facility] ([facility])[address] [place] [address] Consulton 06-18-2024 Consult [facility] Wound Care Prevention CONSULT Note Marcia Rooney AGE: 78 y.o. GENDER: female : 1945 Subjective: HISTORY of PRESENT ILLNESS HPI Marcia Rooney is a 78 y.o. female who presents for a wound care prevention consult. History of Wound Context: Marcia Rooney is a 78 y.o. that presents to the emergency department from nursing facility for nausea and vomiting that started yesterday. [facility]DC also reports patient's hemoglobin is around 9 but we do not have a baseline. Patient has a history of dementia and we do not know her baseline. She is oriented to person and place in the ED. Upon assessment of patient's skin no open wounds or areas of concern found. Recommend following hospital's prevention protocol. See orders and recommendations below. PAST MEDICAL HISTORY History reviewed. No pertinent past medical history. PAST SURGICAL HISTORY History reviewed. No pertinent surgical history. FAMILY HISTORY No family history on file. SOCIAL HISTORY ALLERGIES Not on File MEDICATIONS No current facility-administere d medications on file prior to encounter. Current Outpatient Medications on File Prior to Encounter Medication Sig Dispense Refill midodrine (Proamatine) 2.5 MG tablet Take 2.5 mg by mouth 3 times a day. acetaminophen (Tylenol) 325 MG tablet Take 650 mg by mouth every 6 hours as needed for mild pain (1-3). aspirin 81 MG EC tablet Take 81 mg by mouth daily. atorvastatin (Lipitor) 40 MG tablet Take 40 mg by mouth daily. bisacodyl (Dulcolax) 10 MG suppository Insert 10 mg into the rectum Daily as needed for constipation. bisacodyl (Dulcolax) 5 MG EC tablet Take 5 mg by mouth Daily as needed for constipation. Do not crush, chew, or split. bumetanide (Bumex) 1 MG tablet Take 1 mg by mouth daily. buPROPion XL (Wellbutrin XL) 150 MG 24 hr tablet Take 150 mg by mouth daily. Do not crush, chew, or split. clopidogrel (Plavix) 75 MG tablet Take 75 mg by mouth daily. Glucagon 1 MG/0.2ML solution Inject under the skin. glucose (Glutose) 40 % gel oral gel Take 15 g by mouth every 15 minutes as needed for low blood sugar. Insulin Glargine (TOUJEO SOLOSTAR SC) Inject 25 Units under the skin daily. levothyroxine (Synthroid, Levoxyl) 175 MCG tablet Take 175 mcg by mouth every morning (before breakfast). magnesium hydroxide (Milk of Magnesia) 800 MG/5ML suspension Take 30 mL by mouth Daily as needed for constipation. ondansetron (Zofran) 4 MG tablet Take 4 mg by mouth every 8 hours as needed for nausea or vomiting. pioglitazone (Actos) 30 MG tablet Take 30 mg by mouth daily. promethazine (Phenergan) 25 MG suppository Insert 25 mg into the rectum every 8 hours as needed for nausea or vomiting. venlafaxine XR (Effexor XR) 37.5 MG 24 hr capsule Take 37.5 mg by mouth daily. Do not crush or chew. REVIEW OF SYSTEMS Pertinent items are noted in HPI. Objective: BP 133/60 (BP Location: Right arm, Patient Position: Lying) Pulse 67 Temp 36.1 ?C (96.9 ?F) (Temporal) Resp 18 Ht 5' 5" (1.651 m) Wt 150 lb (68 kg) SpO2 100% BMI 24.96 kg/m? PHYSICAL EXAM General appearance: in no apparent distress, well developed and well nourished, in no respiratory distress and acyanotic, and alert Skin: warm and dry, no open areas or areas of concern Pulmonary: Normal effort, no respiratory distress, no cyanosis LABS CBC: Lab Results Component Value Date WBC 6.2 06/18/2024 HGB 9.1 (L) 06/18/2024 HCT 28.4 (L) 06/18/2024 MCV 94.0 06/18/2024 PLT 241 06/18/2024 BMP: Lab Results Component Value Date NA 133 (L) 06/18/2024 K 3.6 06/18/2024 CL 107 06/18/2024 CO2 25 06/18/2024 BUN 18 (H) 06/18/2024 CREATININE 0.63 06/18/2024 PT/INR: No results found for: "PROTIME", "INR" Prealbumin: No results found for: PREALBUMIN Albumin:No components found for: "LABALBU" Sed Rate:No results found for: "SEDRATE" Micro: No components found for: "BC" Assessment/Plan: PREVENTION RECOMMENDATION: 1. Turn and reposition every 2 hours and PRN while in bed 2. Reposition every 1 hour while sitting up in chair. Limit time up in chair to 2 hour time intervals if patient is unable to reposition self. 3. Q2H incontinence checks 4. Monitor bony prominences for redness or skin breakdown 5. Change foam dressing for prevention applied to site/bony prominence every 7 days. Pull back foam dressing and reassess skin every shift. 6. Maintain head of bed at lowest elevation consistent with medical plan of care 7. Pressure redistribution mattress: P500, Envella, Total Care Bariatric 8. Pressure redistribution cushion: waffle cushion in bedside chair 9. Pressure redistribution boots: Heel Medix boots or pillows to offload heels at all times 10. Pad/offload medical devices 11. Nutritional support 12. Barrier cream 13. Cleanse skin with PH balanced cleanser 14. Moisturize skin as needed Any questions or concerns please vocabdiel or s (more content not included)... Normal [facility] Laboratory - Chemistry and C hemistry - challengeon 06-18-2024 Glucose [Mass/Vol] 159 mg/dL High 70 - 100 mg/dL [facility] [place] Glucose [Mass/Vol] 84 mg/dL 70 - 100 mg/dL [facility] [place] Glucose [Mass/Vol] 67 mg/dL Low 70 - 100 mg/dL [facility] Glucose [Mass/Vol] 218 mg/dL High 70 - 100 mg/dL [facility] Glucose [Mass/Vol] 156 mg/dL High 70 - 100 mg/dL [facility] [place] No Panel Informationon 06-18 Interpretation and review of laboratory results Abnormal [facility] Performed by: [facility], [address], [facility] [address] CLIA ID: [id number] [facility] Interpretation and review of laboratory results Normal [facility] Performed by: [facility], [address], [facility] [address] CLIA ID: [id number] [facility] Interpretation and review of laboratory results Abnormal [facility] Performed by: [facility], [address], [facility] [address] CLIA ID: [id number] [facility] Interpretation and review of laboratory results Abnormal [facility] Performed by: [facility], [address], [facility] [address] CLIA ID: [id number] [facility] Interpretation and review of laboratory results Abnormal [facility] Performed by: [facility], [address], [facility] [address] CLIA ID: [id number] [facility] Nursing Noteon 06-18-2024 Nursing Note Wound Care consulted for Pressure Injury Prevention. Pt's Giuseppe score= 14 on 06/17 Pt's pressure points assessed. Pt's Heels, Buttocks/coccyx, Back, Elbows, Occiput and ears all intact. Pt incontinent of urine. Pads changed, incontinence care provided, barrier ointment applied. Prevention Measures in place, including: [place] sheet (obtained) with pillows/wedges, Foam heel protectors (obtained and applied), Heels elevated off bed on pillows, Sacral foam (obtained, at bedside), Zinc/Moisture Barrier ointment (obtained), Waffle chair cushion (obtained for pt). Skin Care precaution order set in place. Dietitian consult in place. PT/OT consult in place. Will continue to follow pt. Please secure chat for any questions or concerns. Mady Ceron RN Normal [facility] Progress Noteon 06-18-2024 Progress Note Nutrition Assessment Type and Reason for Visit: Initial, Consult (Giuseppe nutritional subscore of 2 or less) Nutrition Recommendations/Plan : Continue with Adult diet Regular; 5 carb choices (75 gm/meal) Pt is eating well. ONS not indicated at this time. Please document pt's PO intakes via flowsheet to accurately assess PO intake adequacy. Suggest checking pt's Vitamin D level and supplement if deficient/insufficie nt. Monitor intakes, weights, and labs weekly. RD will follow. Malnutrition Assessment: Malnutrition Status: No malnutrition Context: Acute Illness Findings of the 6 clinical characteristics of malnutrition: Energy Intake: No significant decrease in energy intake Weight Loss: No significant weight loss Body Fat Loss: No significant body fat loss Muscle Mass Loss: No significant muscle mass loss Fluid Accumulation: No significant fluid accumulation Machine Striper Strength: Not Performed Nutrition Assessment: Pt is a 78 y/o female admitted from [facility] with complaints of nausea, coughing, CARDONA, and diarrhea. Pt reports feeling much better today. Pt reports having a very good appetite and was very complimentary of the food here at the hospital. Pt with poor dentition but tolerating regular textures without complaints so far. Estimated weight at admission was 150#. RD weighed the pt today at 228.9#. Per pt, she was guessing around 210#. Per last documented weight in the EMR, pt weighed 184# (04/15/24), 181# (12/13/23), 178#(09/07/23). Estimated Daily Nutrient Needs: Energy Requirements Based On: Kcal/kg Weight Used for Energy Requirements: Caldwell Weight for Energy Calculation (kg): 57 kg Total Energy Requirements (kcals/day): 8853-7719 kcals (28-30 kcals/kg) Weight Used for Protein Requirements: Caldwell Weight in Kg Used for Protein Requirements: 57 kg Estimated Total Protein (g/day): 68-80g (1.2-1.4g/kg) Estimated Daily Total Fluid (ml/day): 1600 ml/day or per MD Nutrition Related Findings: no edema; Na 133, BUN 18, Glucose 190, 206, 246, ca++ 7.8, Hgb 9.1, Hct 28.4; insulin, Synthroid Wound Type: (left eye bruising/redness, redness to coccyx) Current Nutrition Therapies: Adult diet Regular; 5 carb choices (75 gm/meal) Current Oral Intake Average Meal Intake: 51-75%, 76-100% Average Supplements Intake: None Ordered Anthropometric Measures: Height: 165.1 cm (5' 5") Current Body Weight: 104 kg (228 lb 14.4 oz) Weight Source: Bed Scale (may be an overestimation d/t items/blankets on the bed) Usual Body Weight: 83.5 kg (184 lb) (184# (04/15/24), 181# (12/13/23), 178# (09/07/23)) % Weight Change (Calculated): 24.4 Caldwell Body Weight (lbs) (Calculated): 125 lbs Caldwell Body Weight (Kg) (Calculated): 57 kg % Caldwell Body Weight (Calculated): 183.1 % BMI (kg/m2) (Calculated): 38.1 Weight Adjustment For: No Adjustment BMI Categories: Obese Class 2 (BMI 35.0 -39.9) Nutrition Diagnosis: Increased nutrient needs related to increase demand for energy/nutrients as evidenced by other (comment) (COVID) Nutrition Interventions: Nutrition Education/Counseling : No recommendation at this time Coordination of Nutrition Care: Continue to monitor while inpatient Plan of Care discussed with: Patient Goals: Goals: PO intake 75% or greater, by next RD assessment Nutrition Monitoring and Evaluation: Behavioral-Environme ntal Outcomes: None Identified Food/Nutrient Intake Outcomes: Diet Advancement/Toleranc e, Food and Nutrient Intake, Supplement Intake Physical Signs/Symptoms Outcomes: Biochemical Data, GI Status, Chewing or Swallowing, Nausea or Vomiting, Fluid Status or Edema, Diarrhea, Nutrition Focused Physical Findings, Skin, Weight Discharge Planning: Continue current diet Brad Wong RD Contact: [phone] or via Secure Chat Normal [facility] Progress Note PHYSICAL THERAPY [facility] Treatment Note Name/MRN: Marcia Rooney ([id number]) Date of : 1945 Age: 78 y.o. [facility] A Visit #: 3 out of 7 visits Discharge Recommendation: Snf Facility Equipment Needed: No Prior Level of Function Prior Level of ADL Function: Required Assist Prior Level of Mobility: Required Assist; Device: Front wheeled walker Prior Level of Transfers: Required Assist Assessment Pt is progressing slowly toward PT goals however is limited by decreased strength, mild dizziness, and impaired cognition. Pt completed bed mobility with SBA/Nathan, sit to stand transfers with Nathan/modA, and lateral stepping along EOB with FWW and Nathan. Pt also completed stepping activity fwd/backward but reports instability/buckling of L knee. Pt will benefit from continued skilled PT to address current functional deficits. Recommend SNF. Subjective Patient pleasant and agreeable to therapy. Pain: Pt reports L knee pain/instability but did not rate pain level numerically. Medical Precautions: Droplet Plus Proper PPE donned/doffed in accordance with facility standards. Fall Risk: Jacinto Fall Risk Score: 85 (High Risk) Precautions/Restrict ions: Fall Precautions Overall Cognitive Status: Exceptions - Attention span: attends with cues to redirect - Safety judgement: decreased awareness of need for assistance and decreased awareness of need for safety - Problem solving: assistance required to generate solutions, assistance required to implement solutions, assistance required to identify errors made, assistance required to correct errors made, and decreased awareness of errors - Insights: decreased awareness of deficits - Sequencing: requires cues for some Family/Caregiver Present: none Objective Bed Mobility Supine to sit: SBA Sit to supine: Min Assist HOB elevated and use of bed rail. Pt was able to perform supine>sit transfer without assist however required increased time. When returning to supine, pt required Nathan to guide L LE into bed. Pt reports mild dizziness upon sitting at EOB. Pt was instructed in proper breathing techniques and completing bed mobility slowly to decrease symptoms of dizziness. Transfers/Mobility Sit to stand: Min Assist, Mod Assist Stand to sit: Min Assist, Mod Assist From EOB to FWW x5 trials. Pt was instructed in proper hand/foot placement. Fair carryover demonstrated. Pt required modA from lower bed height and Nathan from slightly elevated bed. Increased time to rise and slight decreased eccentric control noted when returning to sit. Once in standing, pt completed lateral stepping along EOB with FWW and Nathan. Verbal cues and assist with management of FWW. Pt demos decreased toe clearance and heavy reliance on FWW. Pt also completed stepping activity fwd/backward but reports instability/buckling of L knee. Unable to progress to further ambulation this date. Device(s) used: Front wheeled walker Plan Continue acute PT per plan of care. Safety/Education Safety Safety Devices in place: All fall risk precautions in place, call light within reach, left in bed, bed alarm in place, gait belt, patient at risk for falls, and nurse notified Restraints: No Education Education Given To: patient Education Provided: PT Role, PT Goals, Plan of Care, Transfer Training, and Benefits of Increasing Activity Education Method: Verbal Barriers to Learning: Cognition Education Outcome: Verbalized Understanding, Unable to Demonstrate, and Continued Education Needed Outcome Measures AM-PAC AM-PAC Inpatient Mobility Raw Score (No Stairs) : 11 Goals Patient Stated Goal: no goal stated. Encounter Problems Encounter Problems (Active) Balance Patient will maintain dynamic standing balance for 5 minutes with CGA in order to demonstrate decreased risk of falling. (Progressing) Start: 06/15/24 Expected End: 06/21/24 Exercise Patient will complete lower extremity exercises for 1-2 sets / 10-15 reps in order to improve strength and activity tolerance for mobility. (Not Addressed) Start: 06/15/24 Expected End: 06/21/24 Mobility Patient will ambulate 20 feet with CGA and least restrictive device in order to improve safety and independence with mobility. (Progressing) Start: 06/15/24 Expected End: 06/21/24 Pain - Adult Transfers Patient will perform bed mobility with supervision in order to improve independence and prepare for out of bed mobility. (Progressing) Start: 06/15/24 Expected End: 06/21/24 Patient will complete functional transfer with least restrictive device with CGA in order to prepare for ambulation. (Progressing) Start: 06/15/24 Expected End: 06/21/24 Therapy Time Individual Co-treatment Time In 1337 Time Out 1412 Minutes 35 Timed Code Treatment Minutes: 31 Minutes (x2 ther act) Shy Mccall PTA Normal [facility] Progress Note OCCUPATIONAL THERAPY [facility] Treatment Note Name/MRN: Marcia Rooney ([id number]) Date of : 1945 Age: 78 y.o. Room/Bed: [facility] A Visit #: 3 out of 6 visits Discharge Recommendation: Snf Facility Equipment Needed: No Prior Level of Function Prior Level of ADL Function: Required Assist Prior Level of Mobility: Required Assist; Device: Front wheeled walker Prior Level of Transfers: Required Assist Assessment Pt seen for OT tx this date with a focus on bed mobility, transfer training, and mobility. Pt tolerated session fairly well and is making progress with OT POC. She completed bed mobility with SBA-Min A, STS with Mod-Min A, stand step transfer with Min A, and standing balance with CGA. Pt is limited by impaired strength, balance, and endurance. Pt is functioning below baseline and is a high fall risk. She would continue to benefit from skilled OT services in order to increase safety and maximize indep in occupational participation. OT rec is SNF upon planned discharge. Subjective Pt supine in bed upon arrival, pleasant and agreeable. Per RN, pt okay to see. Pleasantly confused. Pain: Pt denies any current pain. Medical Precautions: Droplet Plus Proper PPE donned/doffed in accordance with facility standards. Fall Risk: Jacinto Fall Risk Score: 75 (High Risk) Precautions/Restrict ions: Fall Precautions Family/Caregiver Present: none Objective Bed Mobility Supine to sit: SBA Sit to supine: Min Assist Pt completed bed mobility from supine to EOB with SBA, HOB elevated and with use of bed rails. She required Min A to return to supine for bringing BLEs into bed. Increased time to complete. Denied dizziness with positional changes. Transfers/Mobility Sit to stand: Mod Assist Stand to sit: Min Assist Stand step: Min Assist Standing balance: Contact Guard Pt completed STS to/from EOB to FWW with Mod A for elevation and Min A for controlled descent. VC's for hand placement for push up from/reach back to seated surface with fair carry over. Min A for side steps along EOB, pt took ~4 lateral steps to HOB with use of FWW. VC's for device mgmt with fair carry over. CGA for standing balance at FWW. 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 Safety/Education Safety Safety Devices in place: All fall risk precautions in place, call light within reach, left in bed, bed alarm in place, gait belt, patient at risk for falls, nurse notified, and no alarms engaged upon entry Restraints: No Education Education Given To: patient Education Provided: OT Role, Plan of Care, Transfer Training, Energy Conservation, Fall Prevention Education, Discharge Recommendations, and Benefits of Increasing Activity Education Method: Verbal, Demonstration, and Teach Back Barriers to Learning: Cognition Education Outcome: Verbalized Understanding, Demonstrated Understanding, and Continued Education Needed AM-PAC AM-PAC Inpatient Daily Activity Raw Score: 17 ADL Inpatient [facility] G-Code Modifier: CK Goals Patient Stated Goal: did not state Encounter Problems Encounter Problems (Active) Balance Patient will tolerate standing for 4 minutes with SBA to allow participation in ADL tasks (Progressing) Start: 06/15/24 Expected End: 06/21/24 Dressing Upper Extremities Patient will complete upper body dressing with setup/supervision (Not Addressed) Start: 06/15/24 Expected End: 06/21/24 Dressings Lower Extremities Patient will dress lower body with SBA (Not Addressed) Start: 06/15/24 Expected End: 06/21/24 Mobility Patient will demonstrate functional ambulation with LRD at SBA level (Progressing) Start: 06/15/24 Expected End: 06/21/24 Toileting Patient will complete toileting tasks at standard toilet with SBA. (Not Addressed) Start: 06/15/24 Expected End: 06/21/24 Transfers Patient will complete functional transfer with least restrictive device with SBA in order to prepare for ambulation. (Progressing) Start: 06/15/24 Expected End: 06/21/24 Therapy Time Individual Co-treatment Time In 0910 Time Out 0940 Minutes 30 Timed Code Treatment Minutes: 30 Minutes (2 THER ACT) Jenny Saleh, BETTS/L Normal [facility] BASIC METABOLIC PANELon 05-24 Anion gap [Moles/Vol] 2 mmol/L Low 3-13 [facility] Comment on above: Performed By: #### L [id number] ####Editorial Project Manager: IRWIN CONTRERAS ([id number])[facility] (SBHLAB)[address] [place] [address] Calcium [Mass/Vol] 7.7 mg/dL Low 8.4-10.4 [facility] Comment on above: Performed By: #### L [id number] ####Editorial Project Manager: IRWIN CONTRERAS ([id number])[facility] (SB[facility])[address] [place] [address] Chloride [Moles/Vol] 105 mmol/L Normal 98-107 [facility] Comment on above: Performed By: #### L AB15 ####Editorial Project Manager: IRWIN CONTRERAS ([id number])[facility] [place] (SB[facility])[address] [place] [address] [place] CO2 [Moles/Vol] 25 mmol/L Normal 22-30 [facility] Comment on above: Performed By: #### L AB15 ####Editorial Project Manager: IRWIN QUIÑONESCER ([id number])[facility] ([facility])[address] Creatinine [Mass/Vol] 0.83 mg/dL Normal 0.52-1.04 [facility] Comment on above: Performed By: #### L [id number] ####Editorial Project Manager: IRWIN CONTRERAS ([id number])[facility] (HL[facility])[address] [place] [address] [place] GLOMERULAR FILTRATION RATE ML/MIN/1.73 SQ M.PREDICTED 72.3 mL/min/1.73m*2 Normal >60.0 [facility] Comment on above: Result Comment: Calc ulation based on the Chronic Kidney Disease Epidemiology Collaboration (CKD-EPI) equation refit without adjustment for race Performed By: #### L AB15 ####Editorial Project Manager: IRWIN CONTRERAS ([id number])[facility] ([facility])[address] Glucose [Mass/Vol] 206 mg/dL High 70-100 [facility] Comment on above: Performed By: #### L AB15 ####Editorial Project Manager: IRWIN CONTRERAS ([id number])[facility] ([facility])[address] [place] [address] [place] Potassium [Moles/Vol] 3.6 mmol/L Normal 3.5-5.1 [facility] Comment on above: Performed By: #### L AB15 ####Editorial Project Manager: IRWIN CONTRERAS ([id number])[facility] ([facility])[address] [place] [address] [place] Sodium [Moles/Vol] 132 mmol/L Low 135-145 [facility] Comment on above: Performed By: #### L AB15 ####Editorial Project Manager: IRWINKENAN SALAZARJhonathanEBONY ([id number])[facility] (SB[facility])[address] Urea nitrogen [Mass/Vol] 24 mg/dL High 7-17 [facility] Comment on above: Performed By: #### L AB15 ####Editorial Project Manager: IRWIN DIANE ([id number])[facility] (SB[facility])[address] Basic metabolic 1998 panelon 06-17-2024 Anion gap [Moles/Vol] 2 mmol/L Low 3 - 13 mmol/L [facility] [place] Calcium [Mass/Vol] 7.7 mg/dL Low 8.4 - 10. 4 mg/dL [facility] Chloride [Moles/Vol] 105 mmol/L 98 - 10 7 mmol/L [facility] CO2 [Moles/Vol] 25 mmol/L 22 - 30 mmol/L [facility] [place] Creatinine [Mass/Vol] 0.83 mg/dL 0.52 - 1.04 mg/dL [facility] GFR/1.73 sq M.predicted (S/P/Bld) [Vol rate/Area] 72.3 mL/min - PINF [facility] Comment on above: Calculation based on the Chronic Kidney Disease Epidemiology Collaboration (CKD-EPI) equation refit without adjustment for race Glucose [Mass/Vol] 206 mg/dL High 70 - 100 mg/dL [facility] Interpretation and review of laboratory results Abnormal [facility] [place] Potassium [Moles/Vol] 3.6 mmol/L 3.5 - 5.1 mmol/L [facility] Sodium [Moles/Vol] 132 mmol/L Low 135 - 145 mmol/L [facility] Urea nitrogen [Mass/Vol] 24 mg/dL High 7 - 17 mg/d L [facility] CBC W Auto Differential pane l (Bld)on 06-17-2024 Basophils (Bld) [#/Vol] 0 10*3/uL 0.0 - 0.2 10*3/uL [facility] Basophils/100 WBC (Bld) 0 % 0.0 - 2.0 % [facility] Eosinophils (Bld) [#/Vol] 0 10*3/uL 0.0 - 0.5 10*3/uL [facility] Eosinophils/100 WBC (Bld) 0 % 0.0 - 6.0 % [facility] Erythrocyte distribution width (RBC) [Ratio] 13.2 % 11.5 - 15.0 % [facility] Hematocrit (Bld) [Volume fraction] 27.6 % Low 35.0 - 47.0 % [facility] Hemoglobin (Bld) [Mass/Vol] 8.9 g/dL Low 11.7 - 16.0 g/dL [facility] Immature granulocytes (Bld) [#/Vol] 0 10*3/uL NINF - 0.1 10*3/uL [facility] Immature granulocytes/100 WBC (Bld) 0.3 % 0.0 - 2.0 % [facility] Interpretation and review of laboratory results Abnormal [facility] Lymphocytes (Bld) [#/Vol] 0.8 10*3/uL Low 1.0 - 4.3 10*3/uL [facility] Lymphocytes/100 WBC (Bld) 12.3 % Low 15.0 - 45.0 % [facility] MCH (RBC) [Entitic mass] 29.9 pg 26. 0 - 34.0 pg [facility] MCHC (RBC) [Mass/Vol] 32.2 % 30.5 - 36.0 % [facility] MCV (RBC) [Entitic vol] 92.6 fL 77.0 - 99.0 fL [facility] Monocytes (Bld) [#/Vol] 0.5 10*3/uL 0.0 - 0.9 10*3/uL [facility] Monocytes/100 WBC (Bld) 8.2 % 5.0 - 13.0 % [facility] Neutrophils (Bld) [#/Vol] 4.8 10*3/uL 1.8 - 7.5 10*3/uL [facility] Neutrophils/100 WBC (Bld) 79.2 % 38.0 - 82.0 % [facility] Nucleated RBC/100 WBC (Bld) [Ratio] 0 % [facility] Platelet mean volume (Bld) [Entitic vol] 9.9 fL 9.0 - 12.7 fL [facility] Platelets (Bld) [#/Vol] 228 10*3/uL 140 - 440 10*3/uL [facility] RBC (Bld) [#/Vol] 2.98 10*6/uL Low 3.80 - 5.2 0 10*6/uL [facility] WBC (Bld) [#/Vol] 6.1 10*3/uL 3.6 - 10.7 10*3/uL [facility] CBC WITH AUTO DIFFERENTIALon 06-17-2024 Basophils (Bld) [#/Vol] 0.0 10*3/uL Normal 0.0-0.2 [facility] Comment on above: Performed By: #### L [id number] ####Editorial Project Manager: IRWIN CONTRERAS ([id number])[facility] [place] (SB[facility])[address] Basophils/100 WBC (Bld) 0.0 % Normal 0.0-2.0 [facility] Comment on above: Performed By: #### L [id number] ####Editorial Project Manager: IRWIN CONTRERAS ([id number])[facility] [place] (SB[facility])[address] Eosinophils (Bld) [#/Vol] 0.0 10*3/uL Normal 0.0-0.5 [facility] Comment on above: Performed By: #### L [id number] ####Editorial Project Manager: IRWIN CONTRERAS ([id number])[facility] [place] (SB[facility])[address] Eosinophils/100 WBC (Bld) 0.0 % Normal 0.0-6.0 [facility] Comment on above: Performed By: #### L [id number] ####Editorial Project Manager: IRWIN CONTRERAS ([id number])[facility] [place] ([facility])[address] Erythrocyte distribution width (RBC) [Ratio] 13.2 % Normal 11.5-15.0 [facility] Comment on above: Performed By: #### L [id number] ####Editorial Project Manager: IRWIN CONTRERAS ([id number])[facility] [place] ([facility])[address] Hematocrit (Bld) [Volume fraction] 27.6 % Low 35.0-47.0 [facility] Comment on above: Performed By: #### L [id number] ####Editorial Project Manager: IRWIN SALAZARJhonathanEBONY ([id number])[facility] ([facility] Hemoglobin (Bld) [Mass/Vol] 8.9 g/dL Low 11.7-16.0 [facility] Comment on above: Performed By: #### L [id number] ####Editorial Project Manager: IRWIN DIANE ([id number])[facility] ([facility])[address] IMMATURE GRANS % 0.3 % Normal 0.0-2.0 [facility] Comment on above: Performed By: #### L [id number] ####Editorial Project Manager: IRWIN DIANE ([id number])[facility] ([facility])[address] [place] [address] IMMATURE GRANS ABSOLUTE 0.0 10*3/uL Normal <0.1 [facility] Comment on above: Performed By: #### L [id number] ####Editorial Project Manager: IRWIN SALAZARJARRETT ([id number])[facility] ([facility])[address] [place] [address] Lymphocytes (Bld) [#/Vol] 0.8 10*3/uL Low 1.0-4.3 [facility] Comment on above: Performed By: #### L [id number] ####Editorial Project Manager: IRWIN DIANE ([id number])[facility] ([facility])[address] Lymphocytes/100 WBC (Bld) 12.3 % Low 15.0-45.0 [facility] Comment on above: Performed By: #### L [id number] ####Editorial Project Manager: IRWIN RUELASEBONY ([id number])[facility] ([facility])[address] [place] [address] MCH (RBC) [Entitic mass] 29.9 pg Normal 26.0-34.0 [facility] Comment on above: Performed By: #### L [id number] ####Editorial Project Manager: IRWIN RUELASEBONY ([id number])[facility] [place] (SB[facility])[address] MCHC 32.2 % Normal 30.5-36.0 [facility] Comment on above: Performed By: #### L [id number] ####Editorial Project Manager: IRWIN RUELASEBONY ([id number])[facility] [place] ([facility])[address] MCV (RBC) [Entitic vol] 92.6 fL Normal 77.0-99.0 [facility] Comment on above: Performed By: #### L [id number] ####Editorial Project Manager: IRWIN SALAZARJARRETT ([id number])[facility] [place] ([facility])[address] Monocytes (Bld) [#/Vol] 0.5 10*3/uL Normal 0.0-0.9 [facility] Comment on above: Performed By: #### L [id number] ####Editorial Project Manager: IRWIN RUELASEBONY ([id number])[facility] [place] ([facility])[address] Monocytes/100 WBC (Bld) 8.2 % Normal 5.0-13.0 [facility] Comment on above: Performed By: #### L [id number] ####Editorial Project Manager: IRWIN RUELASEBONY ([id number])[facility] [place] ([facility])[address] NEUTROPHILS ABSOLUTE 4.8 10*3/uL Normal 1.8-7.5 [facility] Comment on above: Performed By: #### L [id number] ####Editorial Project Manager: IRWIN CONTRERAS ([id number])[facility] [place] ([facility])[address] [place] [address] [place] Neutrophils/100 WBC (Bld) 79.2 % Normal 38.0-82.0 [facility] Comment on above: Performed By: #### L [id number] ####Editorial Project Manager: IRWIN CONTRERAS ([id number])[facility] [place] ([facility])[address] NRBC 0.0 /100 WBCs Normal 0.0-2.0 [facility] Comment on above: Performed By: #### L [id number] ####Editorial Project Manager: IRWIN CONTRERAS ([id number])[facility] [place] ([facility])[address] Platelet mean volume (Bld) [Entitic vol] 9.9 fL Normal 9.0-12.7 [facility] Comment on above: Performed By: #### L [id number] ####Editorial Project Manager: IRWIN CONTRERAS ([id number])[facility] ([facility])[address] Platelets (Bld) [#/Vol] 228 10*3/uL Normal 140-440 [facility] Comment on above: Performed By: #### L [id number] ####Editorial Project Manager: IRWIN CONTRERAS ([id number])[facility] ([facility])[address] RBC (Bld) [#/Vol] 2.98 10*6/uL Low 3.80-5.20 [facility] Comment on above: Performed By: #### L [id number] ####Editorial Project Manager: IRWIN CONTRERAS ([id number])[facility] [place] ([facility])[address] WBC (Bld) [#/Vol] 6.1 10*3/uL Normal 3.6-10.7 [facility] Comment on above: Performed By: #### L [id number] ####Editorial Project Manager: IRWIN CONTRERAS ([id number])[facility] [place] ([facility])[address] Laboratory - Chemistry and C hemistry - challengeon 06-17-2024 Glucose [Mass/Vol] 394 mg/dL High 70 - 100 mg/dL [facility] Glucose [Mass/Vol] 269 mg/dL High 70 - 100 mg/dL [facility] Glucose [Mass/Vol] 232 mg/dL High 70 - 100 mg/dL [facility] Glucose [Mass/Vol] 190 mg/dL High 70 - 100 mg/dL [facility] No Panel Informationon 06-17 Interpretation and review of laboratory results Abnormal [facility] Performed by: [facility], [address] [place] [id number] CLIA ID: [id number] [facility] Interpretation and review of laboratory results Abnormal [facility] Performed by: [facility], [address] [place] [id number] CLIA ID: [id number] [facility] Interpretation and review of laboratory results Abnormal [facility] Performed by: [facility], [address] [place] [id number] CLIA ID: [id number] [facility] Interpretation and review of laboratory results Abnormal [facility] Performed by: [facility], [address] [place] [address] CLIA ID: [id number] [facility] Progress Noteon 06-17-2024 Progress Note OCCUPATIONAL THERAPY [facility] Treatment Note Name/MRN: Marcia Rooney ([id number]) Date of : 1945 Age: 78 y.o. Room[facility]: [facility] A Visit #: 2 out of 6 visits Discharge Recommendation: Snf Facility Equipment Needed: No Prior Level of Function Prior Level of ADL Function: Required Assist Prior Level of Mobility: Required Assist; Device: Front wheeled walker Prior Level of Transfers: Required Assist Assessment Patient seen for OT treatment focusing on functional transfers/mobility, bed mobility, lower body dressing, and bathroom level toileting. Patient required mod assist overall this date for toileting and lower body dressing this date. Patient was able to thread bilateral lower extremities without physical assist however required increased assist overall for management of over hips. Patient able to assist with JACKI care tasks this date however increased assist required for thoroughness at this time. Max increased time required for completion of ADL tasks this date. She required mod assist overall for transfers with contact-guard for short mobility to and from bathroom. She would continue to benefit from skilled OT services to improve her safety and independence. Recommend plan discharge for SNF at this time. Subjective Pleasant and cooperative. Okay to see per RN. Agreeable to therapy treatment. Pain: 0-10 pain scale: 9/10 Location: [place] knees following mobility. RN aware. Medical Precautions: Droplet Plus Proper PPE donned/doffed in accordance with facility standards. Fall Risk: Jacinto Fall Risk Score: 75 (High Risk) Precautions/Restrict ions: Fall Precautions Family/Caregiver Present: none Objective ADLs LE Dressing: Mod Assist Toileting: Mod Assist Patient requires increased time to stay to complete all functional ADL tasks. She was able to complete lower body dressing with mod assist overall. She was able to doff briefs in standing and thread clean briefs over bilateral lower extremities without physical assist, however required increased assist to manage briefs up over hips and standing. Increased time required to complete all lower body dressing tasks. Heavy reliance on grab bars and front wheel walker for stability and standing at this time. Patient pleated bathroom level toileting this date with mod assist overall. Patient was able to assist with JACKI care at this time however continued to require assist overall for thoroughness at this date. Increased assist for clothing management at this time as well Bed Mobility Supine to sit: SBA Sit to supine: SBA Scooting: SBA Head of bed elevated. Mild complaints of dizziness with positional changes that subsides quickly with seated rest break standby assist overall for bilateral lower extreme management and trunk control with no physical assist required. Increased time to complete with increased pain noted with activity. Transfers/Mobility Sit to stand: Mod Assist Stand to sit: Min Assist Toilet: Mod Assist Functional mobility: Contact Guard Patient completed sit to stand transfers x 2 this date to front wheel walker. Mod assist overall for lift into standing both from edge of bed and from bathroom level toilet with cueing throughout for proper hand placement and bilateral lower extremity management for proper base support. No complaints of dizziness with positional changes at this time. She was able to complete short mobility to and from bathroom with initial min assist progressing to contact-guard assist overall. Cueing for proper front wheel walker management with assist for obstacle negotiation required. Increased time required to complete with increased pain reported with activity. Device(s) used: Front wheeled walker Plan Continue acute OT per plan of care. Safety/Education Safety Safety Devices in place: All fall risk precautions in place, call light within reach, left in bed, bed alarm in place, gait belt, patient at risk for falls, and nurse notified Restraints: No Education Education Given To: patient Education Provided: Plan of Care, ADL Adaptive Strategies, Transfer Training, Equipment, Fall Prevention Education, Discharge Recommendations, and Benefits of Increasing Activity Education Method: Verbal, Demonstration, and Teach Back Barriers to Learning: Cognition Education Outcome: Verbalized Understanding, Demonstrated Understanding, and Continued Education Needed AM-PAC AM-PAC Inpatient Daily Activity Raw Score: 17 ADL Inpatient CMS G-Code Modifier: CK Goals Patient Stated Goal: did not state Encounter Problems Encounter Problems (Active) Balance Patient will tolerate standing for 4 minutes with SBA to allow participation in ADL tasks (Progressing) Start: 06/15/24 Expected End: 06/21/24 Dressing Upper Extremities Patient will complete upper body dressing with setup/supervision (Initiated) Start: 06/15/24 Expect (more content not included)... Normal [facility] Progress Note PHYSICAL THERAPY [facility] Treatment Note Name/MRN: Marcia Rooney ([id number]) Date of : 1945 Age: 78 y.o. Room[facility]: [facility] A Visit #: 2 out of 7 visits Discharge Recommendation: Snf Facility Equipment Needed: No Prior Level of Function Prior Level of ADL Function: Required Assist Prior Level of Mobility: Required Assist; Device: Front wheeled walker Prior Level of Transfers: Required Assist Assessment Pt demos minimal improvement in functional mobility and progress toward therapy goals. Pt requires SBA for bed mobility, min-max A x1 for functional transfers, min-mod A for lateral steps, short ambulation. Pt is currently limited by cognition, nausea/vomiting, dizziness. Pt will continue to benefit from acute skilled PT to address current deficits. Recommendation for SNF remains appropriate. Pt may benefit from vestibular evaluation in future sessions due to significant dizziness with position changes. Subjective Pt pleasant and agreeable to therapy session Pain: Mcelroy-Riggins Pain Ratin = Hurts even more Pain Location: B knees with mobility Medical Precautions: Droplet Plus Proper PPE donned/doffed in accordance with facility standards. Fall Risk: Jacinto Fall Risk Score: 75 (High Risk) Precautions/Restrict ions: Fall Precautions Overall Cognitive Status: Exceptions - Attention span: attends with cues to redirect - Memory: decreased recall of recent events and decreased short term memory - Safety judgement: decreased awareness of need for assistance and decreased awareness of need for safety - Problem solving: assistance required to generate solutions, assistance required to implement solutions, assistance required to identify errors made, assistance required to correct errors made, and decreased awareness of errors - Insights: decreased awareness of deficits - Initiation: requires cues for some - Sequencing: requires cues for some Overall Orientation Status: Oriented to Person Family/Caregiver Present: none Objective Bed Mobility Supine to sit: SBA Sit to supine: SBA Pt completes bed mobility at SBA with HOB elevated and use of bed rails. Increased time and effort required to complete. Pt reports increased dizziness with position changes especially with head turns. Pt with multiple bouts of emesis at end of session, RN aware and gathering meds for pt at end of session. Transfers/Mobility Sit to stand: Min Assist, Mod Assist Stand to sit: Mod Assist, Max Assist Pt completes x2 sit<->stand from EOB to FWW. Pt requires initial min A x1 to elevate into upright stand with cues for hand placement and anterior weightshift. Pt returns to sitting requiring mod A x1 to assist in controlled descent due to knee buckling/pain. Pt completes additional sit->stand from EOB to FWW requiring mod A x1 to elevate and max A x1 to assist in controlled descent due to significant B knee buckling and assist to align to surface. Cues provided throughout for hand and foot placement with fair carryover. Device(s) used: Front wheeled walker Ambulation Ambulation 1 Assistive device(s) used: Front wheeled walker Assist level: Min Assist, Mod Assist Distance (ft): ~4 lateral steps, ~2 feet forward/retro Quality of gait: step to pattern, shuffling, slow catia Pt demos short, step to gait pattern, decreased gait speed. Pt requires min-mod A x1 for general stability, weightshifting and FWW management. Pt limited by fatigue. Balance During Session: Posture: fair Sitting - Static: SBA Sitting - Dynamic: SBA Standing - Static: Min Assist Standing - Dynamic: Min Assist, Mod Assist Pt completes static and dynamic standing balance at FWW requiring min-mod A x1 for anterior weightshift to maintain upright stand. Plan Continue acute PT per plan of care. Safety/Education Safety Safety Devices in place: All fall risk precautions in place, call light within reach, left in bed, bed alarm in place, gait belt, patient at risk for falls, and nurse notified Restraints: N/A Education Education Given To: patient Education Provided: PT Role, PT Goals, Gait Training, Plan of Care, Transfer Training, Equipment, and Benefits of Increasing Activity Education Method: Verbal and Demonstration Barriers to Learning: Cognition Education Outcome: Verbalized Understanding, Demonstrated Understanding, and Continued Education Needed Outcome Measures AM-PAC AM-PAC Inpatient Mobility Raw Score (No Stairs) : 12 Goals Patient Stated Goal: none stated. Encounter Problems Encounter Problems (Active) Balance Patient will maintain dynamic standing balance for 5 minutes with CGA in order to demonstrate decreased risk of falling. (Progressing) Start: 06/15/24 Expected End: 06/21/24 Exercise Patient will complete lower extremity exercises for 1-2 sets / 10-15 reps in order to improve strength and activity tolerance for mobility. (No (more content not included)... Normal [facility] [id number] 06-16-2024 [id number] S/W, self pay Per [facility] patient SNF notes the patient has [employer] Medicare.I did message Financial Counselor Sharon Elmore with this information. Normal [facility] BASIC METABOLIC PANELon 11-2 Anion gap [Moles/Vol] 5 mmol/L Normal 3-13 [facility] Comment on above: Performed By: #### L AB103, LAB15 ####Editorial Project Manager: IRWIN CONTRERAS ([id number])[facility] (SBHLAB)[address] Calcium [Mass/Vol] 8.0 mg/dL Low 8.4-10.4 [facility] Comment on above: Performed By: #### L AB103, LAB15 ####Editorial Project Manager: IRWIN CONTRERAS ([id number])[facility] (SBHLAB)[address] Chloride [Moles/Vol] 103 mmol/L Normal 98-107 [facility] Comment on above: Performed By: #### L AB103, LAB15 ####Editorial Project Manager: IRWIN CONTRERAS ([id number])[facility] BARB[place]ATANN (SBHLAB)[address] CO2 [Moles/Vol] 24 mmol/L Normal 22-30 [facility] Comment on above: Performed By: #### L AB103, LAB15 ####Editorial Project Manager: IRWIN CONTRERAS ([id number])[facility] (SBHLAB)[address] Creatinine [Mass/Vol] 0.70 mg/dL Normal 0.52-1.04 [facility] Comment on above: Performed By: #### L AB103, LAB15 ####Editorial Project Manager: IRWIN CONTRERAS ([id number])[facility] (SBHLAB)[address] GLOMERULAR FILTRATION RATE ML/MIN/1.73 SQ M.PREDICTED 88.7 mL/min/1.73m*2 Normal >60.0 [facility] Comment on above: Result Comment: Calc ulation based on the Chronic Kidney Disease Epidemiology Collaboration (CKD-EPI) equation refit without adjustment for race Performed By: #### L AB103, LAB15 ####Editorial Project Manager: IRWIN CONTRERAS ([id number])[facility] BARBJONATANN (SBHLAB)[address] [place] [address] [place] Glucose [Mass/Vol] 246 mg/dL High 70-100 [facility] Comment on above: Performed By: #### L AB103, LAB15 ####Editorial Project Manager: IRWIN CONTRERAS ([id number])[facility] (SBHLAB)[address] [place] [address] [place] Potassium [Moles/Vol] 3.5 mmol/L Normal 3.5-5.1 [facility] Comment on above: Performed By: #### L AB103, LAB15 ####Editorial Project Manager: IRWIN CONTRERAS ([id number])[facility] (SBHLAB)[address] Sodium [Moles/Vol] 132 mmol/L Low 135-145 [facility] Comment on above: Performed By: #### L AB103, LAB15 ####Editorial Project Manager: IRWIN CONTRERAS ([id number])[facility] MAG[facility] (SBHLAB)[address] Urea nitrogen [Mass/Vol] 24 mg/dL High 7-17 [facility] Comment on above: Performed By: #### L AB103, LAB15 ####Editorial Project Manager: IRWIN CNOTRERAS ([id number])[facility] MAG[facility]ALENO (SBHLAB)[address] Bacteria identified Cx Nom ( Bld)Ordered By: Linda Styles on 06-16-2024 Interpretation and review of laboratory results Abnormal [facility] Blood Collection Site: Left Antecubital [facility] Bacteria identified Cx Nom ( Bld)on 06-16-2024 Interpretation and review of laboratory results Abnormal [facility] Blood Collection Site: Right Antecubital [facility] Bacteria identified Cx Nom ( U)Ordered By: Chelly Salgado on 06-16-2024 Interpretation and review of laboratory results Abnormal [facility] Basic metabolic 1998 panelon 06-16-2024 Anion gap [Moles/Vol] 5 mmol/L 3 - 13 mmol/L [facility] Calcium [Mass/Vol] 8 mg/dL Low 8.4 - 10. 4 mg/dL [facility] Chloride [Moles/Vol] 103 mmol/L 98 - 10 7 mmol/L [facility] CO2 [Moles/Vol] 24 mmol/L 22 - 30 mmol/L [facility] Creatinine [Mass/Vol] 0.7 mg/dL 0.52 - 1.04 mg/dL [facility] GFR/1.73 sq M.predicted (S/P/Bld) [Vol rate/Area] 88.7 mL/min - PINF [facility] Comment on above: Calculation based on the Chronic Kidney Disease Epidemiology Collaboration (CKD-EPI) equation refit without adjustment for race Glucose [Mass/Vol] 246 mg/dL High 70 - 100 mg/dL [facility] Interpretation and review of laboratory results Abnormal [facility] Potassium [Moles/Vol] 3.5 mmol/L 3.5 - 5.1 mmol/L [facility] Sodium [Moles/Vol] 132 mmol/L Low 135 - 145 mmol/L [facility] Urea nitrogen [Mass/Vol] 24 mg/dL High 7 - 17 mg/d L [facility] CBC W Auto Differential pane l (Bld)on 06-16-2024 Basophils (Bld) [#/Vol] 0 10*3/uL 0.0 - 0.2 10*3/uL [facility] Basophils/100 WBC (Bld) 0.1 % 0.0 - 2.0 % [facility] Eosinophils (Bld) [#/Vol] 0 10*3/uL 0.0 - 0.5 10*3/uL [facility] Eosinophils/100 WBC (Bld) 0.1 % 0.0 - 6.0 % [facility] Erythrocyte distribution width (RBC) [Ratio] 12.7 % 11.5 - 15.0 % [facility] Hematocrit (Bld) [Volume fraction] 27.3 % Low 35.0 - 47.0 % [facility] Hemoglobin (Bld) [Mass/Vol] 9 g/dL Low 11.7 - 16.0 g/dL [facility] Immature granulocytes (Bld) [#/Vol] 0 10*3/uL NINF - 0.1 10*3/uL [facility] Immature granulocytes/100 WBC (Bld) 0.4 % 0.0 - 2.0 % [facility] Interpretation and review of laboratory results Abnormal [facility] Lymphocytes (Bld) [#/Vol] 0.7 10*3/uL Low 1.0 - 4.3 10*3/uL [facility] Lymphocytes/100 WBC (Bld) 8.6 % Low 15.0 - 45.0 % [facility] MCH (RBC) [Entitic mass] 30.2 pg 26. 0 - 34.0 pg [facility] MCHC (RBC) [Mass/Vol] 33 % 30.5 - 36.0 % [facility] MCV (RBC) [Entitic vol] 91.6 fL 77.0 - 99.0 fL [facility] Monocytes (Bld) [#/Vol] 0.6 10*3/uL 0.0 - 0.9 10*3/uL [facility] Monocytes/100 WBC (Bld) 7.4 % 5.0 - 13.0 % [facility] Neutrophils (Bld) [#/Vol] 6.4 10*3/uL 1.8 - 7.5 10*3/uL [facility] Neutrophils/100 WBC (Bld) 83.4 % High 38.0 - 82.0 % [facility] Nucleated RBC/100 WBC (Bld) [Ratio] 0 % [facility] Platelet mean volume (Bld) [Entitic vol] 9.9 fL 9.0 - 12.7 fL [facility] Platelets (Bld) [#/Vol] 217 10*3/uL 140 - 440 10*3/uL [facility] RBC (Bld) [#/Vol] 2.98 10*6/uL Low 3.80 - 5.2 0 10*6/uL [facility] WBC (Bld) [#/Vol] 7.7 10*3/uL 3.6 - 10.7 10*3/uL [facility] CBC WITH AUTO DIFFERENTIALon 06-16-2024 Basophils (Bld) [#/Vol] 0.0 10*3/uL Normal 0.0-0.2 [facility] Comment on above: Performed By: #### L [id number] ####Editorial Project Manager: IRWIN CONTRERAS ([id number])[facility] (SBHLAB)[address] [place] [address] Basophils/100 WBC (Bld) 0.1 % Normal 0.0-2.0 [facility] Comment on above: Performed By: #### L [id number] ####Editorial Project Manager: IRWIN CONTRERAS ([id number])[facility] [place] (SBHLAB)[address] Eosinophils (Bld) [#/Vol] 0.0 10*3/uL Normal 0.0-0.5 [facility] Comment on above: Performed By: #### L [id number] ####Editorial Project Manager: IRWIN CONTRERAS ([id number])[facility] (SBHLAB)[address] Eosinophils/100 WBC (Bld) 0.1 % Normal 0.0-6.0 [facility] Comment on above: Performed By: #### L [id number] ####Editorial Project Manager: IRWIN CONTRERAS ([id number])[facility]BRE[facility]ABIL[facility] (SBHLAB)[address] Erythrocyte distribution width (RBC) [Ratio] 12.7 % Normal 11.5-15.0 [facility] Comment on above: Performed By: #### L [id number] ####Editorial Project Manager: IRWIN COTNRERAS ([id number])[facility] [place] (SBAB)[address] Hematocrit (Bld) [Volume fraction] 27.3 % Low 35.0-47.0 [facility] Comment on above: Performed By: #### L [id number] ####Editorial Project Manager: IRWIN CONTRERAS ([id number])[facility] (SBAB)[address] Hemoglobin (Bld) [Mass/Vol] 9.0 g/dL Low 11.7-16.0 [facility] Comment on above: Performed By: #### L [id number] ####Editorial Project Manager: IRWIN RUELASEBONY ([id number])[facility]BRE[facility] (SBHLAB)[address] [place] [address] IMMATURE GRANS % 0.4 % Normal 0.0-2.0 [facility] Comment on above: Performed By: #### L [id number] ####Editorial Project Manager: IRWIN CONTRERAS ([id number])[facility]BRE[facility]ABIL[facility] (SBHLAB)[address] IMMATURE GRANS ABSOLUTE 0.0 10*3/uL Normal <0.1 [facility] Comment on above: Performed By: #### L [id number] ####Editorial Project Manager: IRWIN CONTRERAS ([id number])[facility]BRE[facility] (SBHLAB)[address] Lymphocytes (Bld) [#/Vol] 0.7 10*3/uL Low 1.0-4.3 [facility] Comment on above: Performed By: #### L [id number] ####Editorial Project Manager: IRWIN SALAZARJhonathanEBONY ([id number])[facility] [place] (SBHLAB)[address] Lymphocytes/100 WBC (Bld) 8.6 % Low 15.0-45.0 [facility] Comment on above: Performed By: #### L [id number] ####Editorial Project Manager: IRWIN DIANE ([id number])[facility] (SBHLAB)[address] MCH (RBC) [Entitic mass] 30.2 pg Normal 26.0-34.0 [facility] Comment on above: Performed By: #### L [id number] ####Editorial Project Manager: IRWIN SALAZARJARRETT ([id number])[facility] (SBHLAB)[address] MCHC 33.0 % Normal 30.5-36.0 [facility] Comment on above: Performed By: #### L [id number] ####Editorial Project Manager: IRWIN RUELASEBONY ([id number])[facility] (SBHLAB)[address] MCV (RBC) [Entitic vol] 91.6 fL Normal 77.0-99.0 [facility] Comment on above: Performed By: #### L [id number] ####Editorial Project Manager: IRWIN SALAZARCIARAEBONY ([id number])[facility] [place] (SBHLAB)[address] Monocytes (Bld) [#/Vol] 0.6 10*3/uL Normal 0.0-0.9 [facility] Comment on above: Performed By: #### L [id number] ####Editorial Project Manager: IRWIN RUELASEBONY ([id number])[facility] [place] (SBHLAB)[address] [place] [address] [place] Monocytes/100 WBC (Bld) 7.4 % Normal 5.0-13.0 [facility] Comment on above: Performed By: #### L [id number] ####Editorial Project Manager: IRWIN CONTRERAS ([id number])[facility] [place] (SBHLAB)[address] NEUTROPHILS ABSOLUTE 6.4 10*3/uL Normal 1.8-7.5 [facility] Comment on above: Performed By: #### L [id number] ####Editorial Project Manager: IRWIN CONTRERAS ([id number])[facility] [place] (SBHLAB)[address] Neutrophils/100 WBC (Bld) 83.4 % High 38.0-82.0 [facility] Comment on above: Performed By: #### L [id number] ####Editorial Project Manager: IRWIN CONTRERAS ([id number])[facility] [place] (SBHLAB)[address] NRBC 0.0 /100 WBCs Normal 0.0-2.0 [facility] Comment on above: Performed By: #### L [id number] ####Editorial Project Manager: IRWIN CONTRERAS ([id number])[facility] [place] (SBHLAB)[address] Platelet mean volume (Bld) [Entitic vol] 9.9 fL Normal 9.0-12.7 [facility] Comment on above: Performed By: #### L [id number] ####Editorial Project Manager: IRWIN CONTRERAS ([id number])[facility] [place] (SBHLAB)[address] [place] [address] [place] Platelets (Bld) [#/Vol] 217 10*3/uL Normal 140-440 [facility] Comment on above: Performed By: #### L [id number] ####Editorial Project Manager: IRWIN CONTRERAS ([id number])[facility] [place] (SBHLAB)[address] [place] [address] [place] RBC (Bld) [#/Vol] 2.98 10*6/uL Low 3.80-5.20 [facility] Comment on above: Performed By: #### L [id number] ####Editorial Project Manager: IRWIN CONTRERAS ([id number])[facility] (SBHLAB)[address] WBC (Bld) [#/Vol] 7.7 10*3/uL Normal 3.6-10.7 [facility] Comment on above: Performed By: #### L [id number] ####Editorial Project Manager: IRWIN CONTRERAS ([id number])[facility] (SBHLAB)[address] Laboratory - Chemistry and C hemistry - challengeon 06-16-2024 Glucose [Mass/Vol] 290 mg/dL High 70 - 100 mg/dL [facility] Glucose [Mass/Vol] 151 mg/dL High 70 - 100 mg/dL [facility] Glucose [Mass/Vol] 225 mg/dL High 70 - 100 mg/dL [facility] Glucose [Mass/Vol] 257 mg/dL High 70 - 100 mg/dL [facility] Magnesium [Mass/Vol] 1.9 mg/dL 1.6 - 2 .3 mg/dL [facility] Laboratory - Chemistry and C hemistry - challengeOrdered By: Vee Jimenes on 06-16-2024 Osmolality [Osmolality] 294 mosm/kg [facility] Laboratory - Microbiology an d Antimicrobial susceptibilityOrdered By: Chelly Salgado on 06-16-2024 Bacteria identified Cx Nom (U) >100,000 CFU/mL Escherichia coli Abnormal [facility] Laboratory - Microbiology an d Antimicrobial susceptibilityOrdered By: Linda Styles on 06-16-2024 Bacteria identified Cx Nom (Bld) Escherichia coli Critically abnormal [facility] Comment on above: For identification a nd/or sensitivity, refer to culture collected on: 06/13/24 at 1722([id number]) This is an edited result. Previous organism was Gram-negative bacilli on 06/14/2024 at 0609 EST. Laboratory - Microbiology an d Antimicrobial susceptibilityon 06-16-2024 Bacteria identified Cx Nom (Bld) Escherichia coli Critically abnormal [facility] Comment on above: This is an edited result. Previous organism was Gram-negative bacilli on 06/14/2024 at 0608 EST. MAGNESIUMon 06-16-2024 Magnesium [Mass/Vol] 1.9 mg/dL Normal 1.6-2.3 [facility] Comment on above: Performed By: #### L [id number], LAB15 ####Editorial Project Manager: IRWIN CONTRERAS ([id number])[facility] (SBHLAB)[address] [place] [address] Magnesium [Mass/Vol]on 06-16 Interpretation and review of laboratory results Normal [facility] No Panel Informationon 06-16 Interpretation and review of laboratory results Abnormal [facility] Performed by: [facility], [address] [place] [address] CLIA ID: [id number] [facility] Interpretation and review of laboratory results Abnormal [facility] Performed by: [facility], [address] [place] [address] CLIA ID: [id number] [facility] Interpretation and review of laboratory results Abnormal [facility] Performed by: [facility], [address] [place] [address] CLIA ID: [id number] [facility] Interpretation and review of laboratory results Abnormal [facility] Performed by: [facility], [address] [place] [address] CLIA ID: [id number] [facility] No Panel InformationOrdered By: Vee Jimenes on 06-16-2024 Interpretation and review of laboratory results Normal [facility] OSMOLALITY, SERUMon 06-16-20 24 OSMOLALITY, SERUM 294 mOsm/kg Normal 280-300 [facility] Comment on above: Performed By: #### L [id number] ####Editorial Project Manager: IRWIN CONTRERAS ([id number])[facility] (SBHLAB)[address] [place] [address] Progress Noteon 06-16-2024 Progress Note PHYSICAL THERAPY [facility] Treatment Note Name/MRN: Marcia Rooney ([id number]) Date of : 1945 Age: 78 y.o. Room[facility]: [facility] A Visit #: 1 out of 7 visits Discharge Recommendation: Snf Facility Equipment Needed: No Prior Level of Function Prior Level of ADL Function: Required Assist Prior Level of Mobility: Required Assist; Device: Front wheeled walker Prior Level of Transfers: Required Assist Assessment Pt tolerated session fair. No pain reported. Pt limited by cognition and increased dizziness this session. Vitals WFL throughout session. Pt found soiled, incontinent of urine. Pt able to tolerate multiple STS transfers this session with Min assist to dof brief, pants and gown, and required max assist to complete supine pericare. Pt will continue to benefit from skilled PT interventions including strength and functional transfers. Continue to recommend SNF for discharge. Subjective Pt pleasantly confused and agreeable to therapy. Pt repeating herself frequently due to memory loss. Pt telling stories about her adopted son. Pt had to be encouraged to let this WALLBOARD WORKER change her out of her wet clothes. She stated I pee all the time, there's no use" Pt educated on risks of sitting in wet clothes for extended amount of time. Fair/poor teach back. Observation: In bed, IV and tele monitor in tact. Vitals: Vitals Heart Rate: 68 SpO2: 100 % Heart Rate Source: Monitor BP: 107/54 MAP (mmHg): 72 Pt reporting dizziness throughout session. Vitals WFL. Pain: Pt denies any current pain. Medical Precautions: Droplet Plus Proper PPE donned/doffed in accordance with facility standards. Fall Risk: Jacinto Fall Risk Score: 85 (High Risk) Precautions/Restrict ions: Fall Precautions Overall Cognitive Status: Exceptions - Following commands: follows one step commands with repetition - Attention span: attends with cues to redirect - Memory: decreased short term memory - Safety judgement: decreased awareness of need for assistance and decreased awareness of need for safety - Problem solving: assistance required to generate solutions, assistance required to implement solutions, assistance required to identify errors made, assistance required to correct errors made, and decreased awareness of errors - Initiation: requires cues for some - Sequencing: requires cues for some Pt unsure of where she was at time and saying things like well if I'm admitted to the hospital....." and then asking "is this [place]?" Overall Orientation Status: Oriented to Person Family/Caregiver Present: none Objective Bed Mobility Supine to sit: Min Assist Sit to supine: Min Assist Rolling to right: Min Assist Rolling to left: Min Assist Scooting: SBA Pt required hands on assist for majority of bed mobility. Pt reporting increased dizziness after any movement. Pt required increased time to complete movement, and then extra time taken for dizziness to decrease after movement. Pt encouraged to look at one still object during transition. Fair teach back. Pt closing eyes and then opening them and darting eyes around looking all over. Transfers/Mobility Sit to stand: Min Assist Stand to sit: Min Assist Pt cued for correct hand and foot placement. Good teach back with increased time. Pt completed multiple STS while donning and doffing briefs, pants and gown. Stands lasted from 1 second- 15 seconds before pt sat down due to increased dizziness. Fair eccentric control. Device(s) used: Front wheeled walker Plan Continue acute PT per plan of care. Safety/Education Safety Safety Devices in place: All fall risk precautions in place, call light within reach, left in bed, gait belt, patient at risk for falls, and nurse notified Restraints: No Education Education Given To: patient Education Provided: PT Role, PT Goals, Plan of Care, Transfer Training, and Benefits of Increasing Activity Education Method: Verbal, Demonstration, and Teach Back Barriers to Learning: Cognition Education Outcome: Verbalized Understanding, Demonstrated Understanding, and Continued Education Needed Outcome Measures AM-PAC AM-PAC Inpatient Mobility Raw Score (No Stairs) : 12 -[facility] Goals Patient Stated Goal: none stated. Encounter Problems Encounter Problems (Active) Balance Patient will maintain dynamic standing balance for 5 minutes with CGA in order to demonstrate decreased risk of falling. (Progressing) Start: 06/15/24 Expected End: 06/21/24 Exercise Patient will complete lower extremity exercises for 1-2 sets / 10-15 reps in order to improve strength and activity tolerance for mobility. (Not Addressed) Start: 06/15/24 Expected End: 06/21/24 Mobility Patient will ambulate 20 feet with CGA and least restrictive device in order to improve safety and independence with mobility. (Not Addressed) Start: 06/15/24 Expected End: 06/21/24 Pain - Adult (more content not included)... Normal [facility] Progress Note OCCUPATIONAL THERAPY [facility] Treatment Note Name/MRN: Marcia Rooney ([id number]) Date of : 1945 Age: 78 y.o. Room/Bed: B4-466/B4-466 A Visit #: 1 out of 6 visits Discharge Recommendation: Snf Facility Prior Level of Function Prior Level of ADL Function: Required Assist Prior Level of Mobility: Required Assist; Device: Front wheeled walker Prior Level of Transfers: Required Assist Assessment Pt seen this date for OT treatment focusing on functional transfers / mobility, LB dressing and toileting ADLs with increased time required for all functional tasks. Increased cueing throughout for sequencing and problem solving this date. She requires MOD - MIN A for LB dressing tasks this date, MOD - MIN A for transfers / mobility with a FWW, and MIN A for bed mobility. She would continue to benefit from skilled OT services to improve her independence and safety. Recommend planned discharge for SNF at this time. Subjective Pleasant and cooperative. OK to see per RN. Agreeable to therapy treatment. Pain: 0-10 pain scale: 7/10 Location: [place] [facility] Medical Precautions: Droplet Plus Proper PPE donned/doffed in accordance with facility standards. Fall Risk: Jacinto Fall Risk Score: 85 (High Risk) Precautions/Restrict ions: Fall Precautions Family/Caregiver Present: none Objective ADLs LE Dressing: Min Assist, Mod Assist Toileting: Mod Assist UE Dressing: SBA Pt requires increased time this date to complete all functional tasks. No true LOB noted during OOB activity. Pt completed LB dressing tasks x2 this date with increased time. She initially completed LB dressing with hospital pants in sitting at EOB with MIN A overall to assist with threading of BLE through hospital pants and to manage up over hips. Grossly able to thread BLE without assist, however increased difficulty with management over hospital socks. She required assist to manage up over hips posteriorly in standing 2/2 instability with increased reliance on FWW for safety. Following mobility to bathroom, pt required increased time to complete pericare this date, however no physical assist required. She required completion of 2nd dressing task following toileting tasks 2/2 incontinence and soiled brief. MOD A overall to don new hospital pants and briefs this date with assist to thread BLE through briefs and pants at toilet level with increased fatigue noted from pt. Bed Mobility Supine to sit: Min Assist Sit to supine: Min Assist Scooting: Min Assist HOB elevated, increased time required to complete. Denies dizziness with positional changes. Pt requires increased reliance on bed rails and pull up on therapist to reach EOB at this time with MIN A overall. No physical assist for BLE mangement, however MIN A overall for trunk control and to scoot up in bed. Transfers/Mobility Sit to stand: Mod Assist Stand to sit: Mod Assist Toilet: Mod Assist Functional mobility: Min Assist Pt completed sit<>stand from EOB to FWW with MOD A overall for lift into standing and for controlled descent. Cueing for proper hand placement for push up from / reach back for seated surfaces with good teach back noted. Good BLE management noted for proper KACY this date this date. She required 1 v.c. to correct posture with positional changes. Increased reliance on FWW for balance in standing at this time. She required MIN A overall for short mobiltiy to / from bathroom with increased time and cueing for obstacle negotiation. Assist for line management. She required MOD A for toilet transfers this date with increased reliance on grab bars for safety and stability. Increased time required to complete. Device(s) used: Front wheeled walker Cognition - Following commands: follows one step commands with repetition - Attention span: attends with cues to redirect - Safety judgement: decreased awareness of need for assistance and decreased awareness of need for safety - Problem solving: assistance required to generate solutions, assistance required to implement solutions, assistance required to identify errors made, assistance required to correct errors made, and decreased awareness of errors - Insights: decreased awareness of deficits - Initiation: requires cues for some - Sequencing: requires cues for some Plan Continue acute OT per plan of care. Safety/Education Safety Safety Devices in place: All fall risk precautions in place, call light within reach, left in bed, bed alarm in place, gait belt, patient at risk for falls, and nurse notified Restraints: No Education Education Given To: patient Education Provided: OT Role, Plan of Care, Precautions, ADL Adaptive Strategies, Transfer Training, Equipment, Fall Prevention Education, Discharge Recommendations, and Benefits of Increasing Activity Education Method: Verbal, Demonstration, and Teach Back Barriers to Learning: Cognition Educ (more content not included)... Normal [facility] [id number] 06-15-2024 [id number] Case Management Daily Note/Update Phoned patient's [id number], Elsi Rooney, at [phone] and left HIPAA compliant VM requesting call back. Wish to complete IA and discuss discharge planning. Normal [facility] BASIC METABOLIC PANELon 11-2 Anion gap [Moles/Vol] 4 mmol/L Normal 3-13 [facility] Comment on above: Performed By: #### L [id number] ####Editorial Project Manager: IRWIN CONTRERAS ([id number])[facility] [place] ([facility])[address] Calcium [Mass/Vol] 8.3 mg/dL Low 8.4-10.4 [facility] Comment on above: Performed By: #### L [id number] ####Editorial Project Manager: IRWIN CONTRERAS ([id number])[facility] ([facility])[address] Chloride [Moles/Vol] 96 mmol/L Low 98-107 [facility] Comment on above: Performed By: #### L [id number] ####Editorial Project Manager: IRWIN CONTRERAS ([id number])[facility] [place] ([facility])[address] CO2 [Moles/Vol] 28 mmol/L Normal 22-30 [facility] Comment on above: Performed By: #### L [id number] ####Editorial Project Manager: IRWIN CONTRERAS ([id number])[facility] ([facility])[address] Creatinine [Mass/Vol] 0.82 mg/dL Normal 0.52-1.04 [facility] Comment on above: Performed By: #### L [id number] ####Editorial Project Manager: IRWIN CONTRERAS ([id number])[facility] (SB[facility]AB)[address] GLOMERULAR FILTRATION RATE ML/MIN/1.73 SQ M.PREDICTED 73.3 mL/min/1.73m*2 Normal >60.0 [facility] Comment on above: Result Comment: Calc ulation based on the Chronic Kidney Disease Epidemiology Collaboration (CKD-EPI) equation refit without adjustment for race Performed By: #### L [id number] ####Editorial Project Manager: IRWIN CONTRERAS ([id number])[facility] MICHELLESHAINA ([facility] Glucose [Mass/Vol] 290 mg/dL High 70-100 [facility] Comment on above: Performed By: #### L [id number] ####Editorial Project Manager: IRWIN CONTRERAS ([id number])[facility] ([facility])[address] Potassium [Moles/Vol] 3.6 mmol/L Normal 3.5-5.1 [facility] Comment on above: Performed By: #### L [id number] ####Editorial Project Manager: IRWIN CONTRERAS ([id number])[facility] ([facility])[address] Sodium [Moles/Vol] 128 mmol/L Low 135-145 [facility] Comment on above: Performed By: #### L [id number] ####Editorial Project Manager: IRWIN CONTRERAS ([id number])[facility] ([facility])[address] Urea nitrogen [Mass/Vol] 29 mg/dL High 7-17 [facility] Comment on above: Performed By: #### L [id number] ####Editorial Project Manager: IRWIN CONTRERAS ([id number])[facility] ([facility])[address] Basic metabolic 1998 panelon 06-15-2024 Anion gap [Moles/Vol] 4 mmol/L 3 - 13 mmol/L [facility] Calcium [Mass/Vol] 8.3 mg/dL Low 8.4 - 10. 4 mg/dL [facility] Chloride [Moles/Vol] 96 mmol/L Low 98 - 10 7 mmol/L [facility] CO2 [Moles/Vol] 28 mmol/L 22 - 30 mmol/L [facility] Creatinine [Mass/Vol] 0.82 mg/dL 0.52 - 1.04 mg/dL [facility] [place] GFR/1.73 sq M.predicted (S/P/Bld) [Vol rate/Area] 73.3 mL/min - PINF [facility] Comment on above: Calculation based on the Chronic Kidney Disease Epidemiology Collaboration (CKD-EPI) equation refit without adjustment for race Glucose [Mass/Vol] 290 mg/dL High 70 - 100 mg/dL [facility] Interpretation and review of laboratory results Abnormal [facility] [place] Potassium [Moles/Vol] 3.6 mmol/L 3.5 - 5.1 mmol/L [facility] Sodium [Moles/Vol] 128 mmol/L Low 135 - 145 mmol/L [facility] Urea nitrogen [Mass/Vol] 29 mg/dL High 7 - 17 mg/d L [facility] CBC W Auto Differential pane l (Bld)on 06-15-2024 Erythrocyte distribution width (RBC) [Ratio] 12.7 % 11.5 - 15.0 % [facility] Hematocrit (Bld) [Volume fraction] 27.2 % Low 35.0 - 47.0 % [facility] Hemoglobin (Bld) [Mass/Vol] 8.9 g/dL Low 11.7 - 16.0 g/dL [facility] MCH (RBC) [Entitic mass] 30.4 pg 26. 0 - 34.0 pg [facility] MCHC (RBC) [Mass/Vol] 32.7 % 30.5 - 36.0 % [facility] MCV (RBC) [Entitic vol] 92.8 fL 77.0 - 99.0 fL [facility] Platelet mean volume (Bld) [Entitic vol] 10.1 fL 9.0 - 12.7 fL [facility] Platelets (Bld) [#/Vol] 199 10*3/uL 140 - 440 10*3/uL [facility] RBC (Bld) [#/Vol] 2.93 10*6/uL Low 3.80 - 5.2 0 10*6/uL [facility] WBC (Bld) [#/Vol] 10.7 10*3/uL 3.6 - 10.7 10*3/uL [facility] CBC WITH AUTO DIFFERENTIALon 06-15-2024 Erythrocyte distribution width (RBC) [Ratio] 12.7 % Normal 11.5-15.0 [facility] Comment on above: Performed By: #### L [id number], [id number] ####Editorial Project Manager: IRWIN CONTRERAS ([id number])[facility] ([facility])[address] Hematocrit (Bld) [Volume fraction] 27.2 % Low 35.0-47.0 [facility] Comment on above: Performed By: #### L [id number], [id number] ####Editorial Project Manager: IRWIN CONTRERAS ([id number])[facility] MICHELLEJONATANN ([facility])[address] Hemoglobin (Bld) [Mass/Vol] 8.9 g/dL Low 11.7-16.0 [facility] Comment on above: Performed By: #### L [id number], [id number] ####Editorial Project Manager: IRWIN CONTRERAS ([id number])[facility] MICHELLEJONATANN ([facility])[address] MCH (RBC) [Entitic mass] 30.4 pg Normal 26.0-34.0 [facility] Comment on above: Performed By: #### L [id number], [id number] ####Editorial Project Manager: IRWIN CONTRERAS ([id number])[facility] ([facility])[address] [place] [address] MCHC 32.7 % Normal 30.5-36.0 [facility] Comment on above: Performed By: #### L [id number], [id number] ####Editorial Project Manager: IRWIN CONTRERAS ([id number])[facility] MICHELLEJONATANN ([facility])[address] MCV (RBC) [Entitic vol] 92.8 fL Normal 77.0-99.0 [facility] Comment on above: Performed By: #### L [id number], [id number] ####Editorial Project Manager: IRWIN CONTRERAS ([id number])[facility] [place] ([facility])[address] Platelet mean volume (Bld) [Entitic vol] 10.1 fL Normal 9.0-12.7 [facility] Comment on above: Performed By: #### L [id number], [id number] ####Editorial Project Manager: IRWIN CONTRERAS ([id number])[facility] ([facility])[address] Platelets (Bld) [#/Vol] 199 10*3/uL Normal 140-440 [facility] Comment on above: Performed By: #### L [id number], [id number] ####Editorial Project Manager: IRWIN CONTRERAS ([id number])[facility] MILLERBennett ([facility])[address] RBC (Bld) [#/Vol] 2.93 10*6/uL Low 3.80-5.20 [facility] Comment on above: Performed By: #### Janeen [id number], [id number] ####Editorial Project Manager: IRWIN CONTRERAS ([id number])[facility] ([facility])[address] [place] [address] WBC (Bld) [#/Vol] 10.7 10*3/uL Normal 3.6-10.7 [facility] Comment on above: Performed By: #### L [id number], [id number] ####Editorial Project Manager: IRWIN CONTRERAS ([id number])[facility] ([facility])[address] Laboratory - Chemistry and C hemistry - challengeon 06-15-2024 Glucose [Mass/Vol] 190 mg/dL High 70 - 100 mg/dL [facility] Glucose [Mass/Vol] 252 mg/dL High 70 - 100 mg/dL [facility] Glucose [Mass/Vol] 358 mg/dL High 70 - 100 mg/dL [facility] Glucose [Mass/Vol] 348 mg/dL High 70 - 100 mg/dL [facility] Laboratory - Hematology and Cell countson 06-15-2024 Band form neutrophils (Bld) [#/Vol] 0.3 10*3/uL High NINF - 0.0 10*3/uL [facility] Band form neutrophils/100 WBC (Bld) 3 % High NINF - 0 % [facility] Marcelo cells LM Ql (Bld) Moderate Abnormal (none) [facility] Lymphocytes (Bld) [#/Vol] 0.2 10*3/uL Low 1.0 - 4.3 10*3/uL [facility] Lymphocytes/100 WBC (Bld) 2 % Low 15 - 45 % [facility] Monocytes (Bld) [#/Vol] 0.3 10*3/uL 0.0 - 0.9 10*3/uL [facility] Monocytes/100 WBC (Bld) 3 % Low 5 - 13 % [facility] Neutrophils (Bld) [#/Vol] 10.2 10*3/uL High 1.8 - 7.5 10*3/uL [facility] Poikilocytosis LM Ql (Bld) Slight Abnormal (none) [facility] RBC morphology finding Nom (Bld) abnormal [facility] Segmented neutrophils/100 WBC (Bld) 92 % High 38 - 82 % [facility] MANUAL DIFFERENTIAL (CELLAVI JAY)on 06-15-2024 BAND NEUTROPHILS TOTAL PER COUNTED LEUKOCYTES BY MANUAL COUNT 3 Normal [facility] Comment on above: Performed By: #### L [id number], [id number] ####Editorial Project Manager: IRWIN CONTRERAS ([id number])[facility] ([facility])[address] [place] [address] BANDS (10*3/UL) IN BLOOD-CELLAVISION 0.3 10*3/uL High <=0.0 [facility] Comment on above: Performed By: #### L [id number], [id number] ####Editorial Project Manager: IRWIN CONTRERAS ([id number])[facility] ([facility])[address] [place] [address] BASOPHILS TOTAL PER COUNTED LEUKOCYTES BY MANUAL COUNT Normal [facility] Comment on above: Performed By: #### L [id number], [id number] ####Editorial Project Manager: IRWIN CONTRERAS ([id number])[facility] ([facility])[address] [place] [address] [place] BLASTS TOTAL PER COUNTED LEUKOCYTES BY MANUAL COUNT Normal [facility] Comment on above: Performed By: #### L [id number], [id number] ####Editorial Project Manager: IRWIN CONTRERAS ([id number])[facility] [place] ([facility])[address] MARCELO CELLS PRESENCE IN BLOOD BY LIGHT MICROSCOPY Moderate Abnormal (none) [facility] Comment on above: Performed By: #### L [id number], [id number] ####Editorial Project Manager: IRWIN CONTRERAS ([id number])[facility] [place] ([facility])[address] [place] [address] [place] EOSINOPHILS TOTAL PER COUNTED LEUKOCYTES BY MANUAL COUNT [facility] Comment on above: Performed By: #### L [id number], [id number] ####Editorial Project Manager: IRWIN CONTRERAS ([id number])[facility] [place] ([facility])[address] [place] [address] [place] LYMPHOCYTES (10*3/UL) IN BLOOD-CELLAVISION 0.2 10*3/uL Low 1.0-4.3 [facility] Comment on above: Performed By: #### L [id number], [id number] ####Editorial Project Manager: IRWIN CONTRERAS ([id number])[facility] [place] ([facility])[address] [place] [address] [place] LYMPHOCYTES TOTAL PER COUNTED LEUKOCYTES BY MANUAL COUNT 2 Normal [facility] Comment on above: Performed By: #### L [id number], [id number] ####Editorial Project Manager: IRWIN CONTRERAS ([id number])[facility] [place] ([facility])[address] [place] [address] [place] LYMPHOCYTES/100 LEUKOCYTES IN BLOOD-CELLAVISION 2 % Low 15-45 [facility] Comment on above: Performed By: #### L [id number], [id number] ####Editorial Project Manager: IRWIN CONTRERAS ([id number])[facility] [place] ([facility])[address] [place] [address] [place] METAMYELOCYTES TOTAL PER COUNTED LEUKOCYTES BY MANUAL COUNT Normal [facility] Comment on above: Performed By: #### L [id number], [id number] ####Editorial Project Manager: IRWIN CONTRERAS ([id number])[facility] [place] ([facility])[address] [place] [address] [place] MONOCYTES (10*3/UL) IN BLOOD-CELLAVISION 0.3 10*3/uL Normal 0.0-0.9 [facility] Comment on above: Performed By: #### L [id number], [id number] ####Editorial Project Manager: IRWIN CONTRERAS ([id number])[facility] [place] ([facility])[address] [place] [address] [place] MONOCYTES TOTAL PER COUNTED LEUKOCYTES BY MANUAL COUNT 3 Normal [facility] Comment on above: Performed By: #### L [id number], [id number] ####Editorial Project Manager: IRWIN CONTRERAS ([id number])[facility] [place] ([facility])[address] [place] [address] [place] MONOCYTES/100 LEUKOCYTES IN BLOOD-DISHA 3 % Low 5-13 [facility] Comment on above: Performed By: #### L [id number], [id number] ####Editorial Project Manager: IRWIN CONTRERAS ([id number])[facility] [place] ([facility])[address] [place] [address] [place] MYELOCYTES COUNTED BY MANUAL COUNT [facility] Comment on above: Performed By: #### L [id number], [id number] ####Editorial Project Manager: IRWIN CONTRERAS ([id number])[facility] [place] ([facility])[address] [place] [address] [place] NEUTROPHILS BAND FORM/100 LEUKOCYTES IN BLOOD-CELLAVISI 3 % High <=0 [facility] Comment on above: Performed By: #### L [id number], [id number] ####Editorial Project Manager: IRWIN CONTRERAS ([id number])[facility] [place] ([facility])[address] [place] [address] [place] NEUTROPHILS TOTAL PER COUNTED LEUKOCYTES BY MANUAL COUNT 94 Normal [facility] Comment on above: Performed By: #### L [id number], [id number] ####Editorial Project Manager: IRWIN CONTRERAS ([id number])[facility] [place] ([facility])[address] POIKILOCYTOSIS (PRESENCE) IN BLOOD BY LIGHT MICROSCOPY Slight Abnormal (none) [facility] Comment on above: Performed By: #### L [id number], [id number] ####Editorial Project Manager: IRWIN CONTRERAS ([id number])[facility] [place] ([facility])[address] [address]RE[address] PROMYELOCYTES TOTAL PER COUNTED LEUKOCYTES BY MANUAL COUNT [facility] Comment on above: Performed By: #### L [id number], [id number] ####Editorial Project Manager: IRWIN CONTRERAS ([id number])[facility] [place] (SBHLAB)[address] [place] [address] [place] RBC MORPHOLOGY IN BLOOD abnormal Normal [facility] Comment on above: Performed By: #### L [id number], [id number] ####Editorial Project Manager: IRWIN CONTRERAS ([id number])[facility] (SBHLAB)[address] [place] [address] [place] SEGMENTED NEUTROPHILS (10*3/UL) IN BLOOD-CELLAVISION 10.2 10*3/uL High 1.8-7.5 [facility] Comment on above: Performed By: #### L [id number], [id number] ####Editorial Project Manager: IRWIN CONTRERAS ([id number])[facility] [place] (SBHLAB)[address] [place] [address] [place] SEGMENTED NEUTROPHILS/100 LEUKOCYTES-CE 92 % High 38-82 [facility] Comment on above: Performed By: #### L [id number], [id number] ####Editorial Project Manager: IRWIN CONTRERAS ([id number])[facility] [place] (SBHLAB)[address] [place] [address] [place] UNCLASSIFIED CELLS TOTAL PER COUNTED LEUKOCYTES BY MANUAL COUNT [facility] Comment on above: Performed By: #### L [id number], [id number] ####Editorial Project Manager: IRWIN CONTRERAS ([id number])[facility] (SBHLAB)[address] [place] [address] VARIANT LYMPHOCYTES TOTAL PER COUNTED LEUKOCYTES BY MANUAL COUNT Normal [facility] Comment on above: Performed By: #### L [id number], [id number] ####Editorial Project Manager: IRWIN CONTRERAS ([id number])[facility] (SBHLAB)[address] [place] [address] No Panel Informationon 06-15 Interpretation and review of laboratory results Abnormal [facility] Performed by: [facility], [address] [place] [address] CLIA ID: [id number] [facility] Interpretation and review of laboratory results Abnormal [facility] Performed by: [facility], [address] [place] [address] CLIA ID: [id number] [facility] Interpretation and review of laboratory results Abnormal [facility] Performed by: [facility], [address] [place] [address] CLIA ID: [id number] [facility] Interpretation and review of laboratory results Abnormal [facility] Performed by: [facility], [address] [place] [address] CLIA ID: [id number] [facility] Atypical Lymphocytes Manual [facility] Bands Manual 3 [facility] Basophils Manual [facility] alth Blasts Manual [facility]alt [facility] Eosinophils Manual [facility] Interpretation and review of laboratory results Abnormal [facility] Lymphocytes Manual 2 [facility] Metamyelocytes Manual [facility] Monocytes Manual 3 [facility] alth Myelocytes Manual [facility] ealth Neutrophils Manual 94 [facility] Promyelocytes Manual [facility] Unclassified Cells, Manual [facility] Progress Noteon 06-15-2024 Progress Note Nutrition rescreen completed. Chart reviewed. Patient to be monitored and followed by the diet electronic bench technician. Dietitian available upon request. Normal [facility] 30on 06-14-2024 30 Problem: Pain - Adult Goal: Verbalizes/displays adequate comfort level or baseline comfort level Outcome: Progressing Problem: Safety - Adult Goal: Free from fall injury Outcome: Progressing Problem: Discharge Planning Goal: Discharge to home or other facility with appropriate resources Outcome: Progressing Problem: Chronic Conditions and Co-morbidities Goal: Patient's chronic conditions and co-morbidity symptoms are monitored and maintained or improved Outcome: Progressing Problem: Knowledge Deficit Goal: Patient/family/careg iver demonstrates understanding of disease process, treatment plan, medications, and discharge instructions Outcome: Progressing Problem: Potential for Compromised Skin Integrity Goal: Skin Integrity is Maintained or Improved Outcome: Progressing Goal: Nutritional status is improving Outcome: Progressing Problem: Urinary Incontinence Goal: Perineal skin integrity is maintained or improved Outcome: Progressing Normal [facility] C-REACTIVE PROTEINon 024 CRP [Mass/Vol] 170.8 mg/L High <10.0 [facility] Comment on above: Performed By: #### L [id number], [id number], LAB17, [id number] ####Editorial Project Manager: IRWIN CONTRERAS ([id number])[facility] (SBAB)[address] [place] [address] CBC (HEMOGRAM)on 06-14-2024 Erythrocyte distribution width (RBC) [Ratio] 12.7 % Normal 11.5-15.0 [facility] Comment on above: Performed By: #### L [id number] ####Editorial Project Manager: IRWIN CONTRERAS ([id number])[facility] (SBAB)[address] [place] [address] Hematocrit (Bld) [Volume fraction] 32.5 % Low 35.0-47.0 [facility] Comment on above: Performed By: #### L [id number] ####Editorial Project Manager: IRWIN CONTRERAS ([id number])[facility] (SBHLAB)[address] [place] [address] Hemoglobin (Bld) [Mass/Vol] 10.3 g/dL Low 11.7-16.0 [facility] Comment on above: Performed By: #### L AB294 ####Editorial Project Manager: IRWIN CONTRERAS ([id number])[facility] (SBHLAB)[address] MCH (RBC) [Entitic mass] 30.1 pg Normal 26.0-34.0 [facility] Comment on above: Performed By: #### L [id number] ####Editorial Project Manager: IRWIN CONTRERAS ([id number])[facility] (SBHLAB)[address] MCHC 31.7 % Normal 30.5-36.0 [facility] Comment on above: Performed By: #### L [id number] ####Editorial Project Manager: IRWIN CONTRERAS ([id number])[facility] (SBHLAB)[address] MCV (RBC) [Entitic vol] 95.0 fL Normal 77.0-99.0 [facility] Comment on above: Performed By: #### L [id number] ####Editorial Project Manager: IRWIN CONTRERAS ([id number])[facility] (SB[facility])[address] Platelet mean volume (Bld) [Entitic vol] 9.6 fL Normal 9.0-12.7 [facility] Comment on above: Performed By: #### L [id number] ####Editorial Project Manager: IRWIN CONTRERAS ([id number])[facility] [place] (SBHLAB)[address] Platelets (Bld) [#/Vol] 197 10*3/uL Normal 140-440 [facility] Comment on above: Performed By: #### L [id number] ####Editorial Project Manager: IRWIN CONTRERAS ([id number])[facility] (SBHLAB)[address] RBC (Bld) [#/Vol] 3.42 10*6/uL Low 3.80-5.20 [facility] Comment on above: Performed By: #### L AB294 ####Editorial Project Manager: IRWIN CONTRERAS ([id number])[facility] (SBHLAB)[address] WBC (Bld) [#/Vol] 11.4 10*3/uL High 3.6-10.7 [facility] Comment on above: Performed By: #### L AB294 ####Editorial Project Manager: IRWIN CONTRERAS ([id number])[facility] (SBHLAB)[address] CBC panel Auto (Bld)on 06-14 Erythrocyte distribution width (RBC) [Ratio] 12.7 % 11.5 - 15.0 % [facility] Hematocrit (Bld) [Volume fraction] 32.5 % Low 35.0 - 47.0 % [facility] Hemoglobin (Bld) [Mass/Vol] 10.3 g/dL Low 11.7 - 16.0 g/dL [facility] Interpretation and review of laboratory results Abnormal [facility] MCH (RBC) [Entitic mass] 30.1 pg 26. 0 - 34.0 pg [facility] MCHC (RBC) [Mass/Vol] 31.7 % 30.5 - 36.0 % [facility] MCV (RBC) [Entitic vol] 95 fL 77.0 - 99.0 fL [facility] Platelet mean volume (Bld) [Entitic vol] 9.6 fL 9.0 - 12.7 fL [facility] Platelets (Bld) [#/Vol] 197 10*3/uL 140 - 440 10*3/uL [facility] RBC (Bld) [#/Vol] 3.42 10*6/uL Low 3.80 - 5.2 0 10*6/uL [facility] WBC (Bld) [#/Vol] 11.4 10*3/uL High 3.6 - 10.7 10*3/uL [facility] COMPREHENSIVE METABOLIC PANE [place] 06-14-2024 Albumin [Mass/Vol] 3.3 g/dL Low 3.5-5.0 [facility] Comment on above: Performed By: #### L AB103, [id number], LAB17, [id number] ####Editorial Project Manager: IRWIN CONTRERAS ([id number])[facility] ([facility])[address] [place] [address] [place] ALP [Catalytic activity/Vol] 141 U/L High 38-126 [facility] Comment on above: Performed By: #### L AB103, [id number], LAB17, BYK652 ####Editorial Project Manager: IRWIN QUIÑONESCER ([id number])[facility] (SBHLAB)[address] ALT [Catalytic activity/Vol] 12 U/L Normal 0-34 [facility] Comment on above: Performed By: #### L AB103, [id number], LAB17, ZOV225 ####Editorial Project Manager: IRWIN CONTRERAS ([id number])[facility] (HLAB)[address] Anion gap [Moles/Vol] 4 mmol/L Normal 3-13 [facility] Comment on above: Performed By: #### L AB103, BEU497, LAB17, MVQ549 ####Editorial Project Manager: IRWIN CONTRERAS ([id number])[facility] ([facility])[address] AST [Catalytic activity/Vol] 42 U/L Normal 15-46 [facility] Comment on above: Performed By: #### L AB103, YUD081, LAB17, TTG661 ####Editorial Project Manager: IRWIN CONTRERAS ([id number])[facility] (HLAB)[address] Bilirubin [Mass/Vol] 1.7 mg/dL High 0.2-1.3 [facility] Comment on above: Performed By: #### L AB103, AHS673, LAB17, ZVK691 ####Editorial Project Manager: IRWIN CONTRERAS ([id number])[facility] (HLAB)[address] [place] [address] [place] Calcium [Mass/Vol] 8.7 mg/dL Normal 8.4-10.4 [facility] Comment on above: Performed By: #### L AB103, [id number], LAB17, MBK043 ####Editorial Project Manager: IRWIN CONTRERAS ([id number])[facility] (SBHLAB)[address] [place] [address] [place] Chloride [Moles/Vol] 98 mmol/L Normal 98-107 [facility] Comment on above: Performed By: #### L AB103, [id number], LAB17, TAW928 ####Editorial Project Manager: IRWNI CONTRERAS ([id number])[facility] (SB[facility])[address] [place] [address] [place] CO2 [Moles/Vol] 32 mmol/L High 22-30 [facility] Comment on above: Performed By: #### L AB103, DRK010, LAB17, WXI741 ####Editorial Project Manager: IRWIN CONTRERAS ([id number])[facility] (SBHLAB)[address] Creatinine [Mass/Vol] 0.70 mg/dL Normal 0.52-1.04 [facility] Comment on above: Performed By: #### L AB103, OBO328, LAB17, GOM665 ####Editorial Project Manager: IRWIN CONTRERAS ([id number])[facility] (SBHLAB)[address] GLOMERULAR FILTRATION RATE ML/MIN/1.73 SQ M.PREDICTED 88.7 mL/min/1.73m*2 Normal >60.0 [facility] Comment on above: Result Comment: Calc ulation based on the Chronic Kidney Disease Epidemiology Collaboration (CKD-EPI) equation refit without adjustment for race Performed By: #### L AB103, [id number], LAB17, SOW994 ####Editorial Project Manager: IRWIN CONTRERAS ([id number])[facility] ([facility])[address] [place] [address] [place] Glucose [Mass/Vol] 191 mg/dL High 70-100 [facility] Comment on above: Performed By: #### L AB103, CWL176, LAB17, IXO279 ####Editorial Project Manager: IRWIN CONTRERAS ([id number])[facility] (SBHLAB)[address] Potassium [Moles/Vol] 3.4 mmol/L Low 3.5-5.1 [facility] Comment on above: Performed By: #### L AB103, DBR724, LAB17, FKO975 ####Editorial Project Manager: IRWIN CONTRERAS ([id number])[facility] (SBHLAB)[address] Protein [Mass/Vol] 6.1 g/dL Low 6.3-8.2 [facility] Comment on above: Performed By: #### L AB103, HUT844, LAB17, SOF153 ####Editorial Project Manager: IRWIN CONTRERAS ([id number])[facility] (SBHLAB)[address] Sodium [Moles/Vol] 133 mmol/L Low 135-145 [facility] Comment on above: Performed By: #### L AB103, APU499, LAB17, JEO252 ####Editorial Project Manager: IRWIN CONTRERAS ([id number])[facility] (SBHLAB)[address] Urea nitrogen [Mass/Vol] 21 mg/dL High 7-17 [facility] Comment on above: Performed By: #### L AB103, ZPB516, LAB17, WMS572 ####Editorial Project Manager: IRWIN CONTRERAS ([id number])[facility] CRP [Mass/Vol]on 06-14-2024 Interpretation and review of laboratory results Abnormal [facility] CT HEAD WO IV CONTRASTon CT HEAD WO IV CONTRAST Patient Name: MARCIA VALENZUELA : 1945 Exam Date/Time: 06/14/2024 09:33 Procedure: CT HEAD WO IV CONTRAST Ordering Provider: DIAZ DANIEL Reason For Exam: bruising under left eye EXAMINATION: CT of the head without intravenous contrast. INDICATION: bruising under left eye COMPARISON: None TECHNIQUE: Thin axial imaging of the head was performed without intravenous contrast. Images were reformatted in coronal and sagittal projections using the raw CT data and were interpreted in conjunction with the axial images to render the findings listed below. Dose reduction was employed with automated exposure control. FINDINGS: Limitations: None Ventricles: Generalized enlargement of the ventricles and sulci is noted. No extracerebral collection with mass effect. Brain: No mass or acute hemorrhage. No evidence of acute infarct. Confluent areas of periventricular and subcortical white matter hypodensity are present, in keeping with chronic ischemic microangiopathy. Brainstem: Normal Paranasal sinuses: Clear. Mastoids: Clear. Skull and orbits: The skull and orbits are within normal limits. IMPRESSION: No acute intracranial abnormality. Chronic microvascular change. Report Dictated on Electronically Signed By: Pop Ruiz MD Electronically Signed Date/Time: 06/14/2024 9:55 AM EST Pt does no know how she got her bruise under her left eye. Its has been here for days she states. Normal [facility] CT Head WO contraston 2023 No acute intracranial abnormality. Chronic microvascular change. Report Dictated on Electronically Signed By: Pop Ruiz MD Electronically Signed Date/Time: 06/14/2024 9:55 AM [facility] Patient Name: MARCIA ROONEY : 1945 Exam Date/Time: 06/14/2024 09:33 Procedure: CT HEAD WO IV CONTRAST Ordering Provider: DIAZ DANIEL Reason For Exam: bruising under left eye EXAMINATION: CT of the head without intravenous contrast. INDICATION: bruising under left eye COMPARISON: None TECHNIQUE: Thin axial imaging of the head was performed without intravenous contrast. Images were reformatted in coronal and sagittal projections using the raw CT data and were interpreted in conjunction with the axial images to render the findings listed below. Dose reduction was employed with automated exposure control. FINDINGS: Limitations: None Ventricles: Generalized enlargement of the ventricles and sulci is noted. No extracerebral collection with mass effect. Brain: No mass or acute hemorrhage. No evidence of acute infarct. Confluent areas of periventricular and subcortical white matter hypodensity are present, in keeping with chronic ischemic microangiopathy. Brainstem: Normal Paranasal sinuses: Clear. Mastoids: Clear. Skull and orbits: The skull and orbits are within normal limits. [facility] Pop Ruiz MD - 06/14/2024 [facility] Name: [facility] 1945 [id number] Exam Date/Time: 06/14/2024 09:33 Procedure: CT HEAD WO IV CONTRAST Ordering Provider: DIAZ DANIEL Reason For Exam: bruising under left eye EXAMINATION: CT of the head without intravenous contrast. INDICATION: bruising under left eye COMPARISON: None TECHNIQUE: Thin axial imaging of the head was performed without intravenous contrast. Images were reformatted in coronal and sagittal projections using the raw CT data and were interpreted in conjunction with the axial images to render the findings listed below. Dose reduction was employed with automated exposure control. FINDINGS: Limitations: None Ventricles: Generalized enlargement of the ventricles and sulci is noted. No extracerebral collection with mass effect. Brain: No mass or acute hemorrhage. No evidence of acute infarct. Confluent areas of periventricular and subcortical white matter hypodensity are present, in keeping with chronic ischemic microangiopathy. Brainstem: Normal Paranasal sinuses: Clear. Mastoids: Clear. Skull and orbits: The skull and orbits are within normal limits. IMPRESSION: No acute intracranial abnormality. Chronic microvascular change. Report Dictated on Electronically Signed By: Pop Ruiz MD Electronically Signed Date/Time: 06/14/2024 9:55 AM EST [facility] [place] Radiology Study observation (narrative) [facility] alth CT Head WO contrastOrdered B y: Pop Ruiz on 06-14-2024 [facility] [place] Work Phone: Comprehensive metabolic 1998 panelon 06-14-2024 Albumin [Mass/Vol] 3.3 g/dL Low 3.5 - 5.0 g/dL [facility] [place] ALP [Catalytic activity/Vol] 141 U/L High 38 - 126 U/L [facility] [place] ALT [Catalytic activity/Vol] 12 U/L 0 - 34 U/L [facility] Anion gap [Moles/Vol] 4 mmol/L 3 - 13 mmol/L [facility] AST [Catalytic activity/Vol] 42 U/L 15 - 46 U/L [facility] Bilirubin [Mass/Vol] 1.7 mg/dL High 0.2 - 1 .3 mg/dL [facility] Calcium [Mass/Vol] 8.7 mg/dL 8.4 - 10. 4 mg/dL [facility] Chloride [Moles/Vol] 98 mmol/L 98 - 10 7 mmol/L [facility] CO2 [Moles/Vol] 32 mmol/L High 22 - 30 mmol/L [facility] Creatinine [Mass/Vol] 0.7 mg/dL 0.52 - 1.04 mg/dL [facility] GFR/1.73 sq M.predicted (S/P/Bld) [Vol rate/Area] 88.7 mL/min - PINF [facility] Comment on above: Calculation based on the Chronic Kidney Disease Epidemiology Collaboration (CKD-EPI) equation refit without adjustment for race Glucose [Mass/Vol] 191 mg/dL High 70 - 100 mg/dL [facility] Interpretation and review of laboratory results Abnormal [facility] Potassium [Moles/Vol] 3.4 mmol/L Low 3.5 - 5.1 mmol/L [facility] Protein [Mass/Vol] 6.1 g/dL Low 6.3 - 8.2 g/dL [facility] Sodium [Moles/Vol] 133 mmol/L Low 135 - 145 mmol/L [facility] Urea nitrogen [Mass/Vol] 21 mg/dL High 7 - 17 mg/d L [facility] GLUCOSE, RANDOMon 06-14-2024 Glucose [Mass/Vol] 510 mg/dL Critically high 70-100 [facility] Comment on above: Performed By: #### L AB82 ####Editorial Project Manager: IRWIN CONTRERAS ([id number])[facility] (SB[facility])[address] [place] [address] Glucose (Bld) [Mass/Vol]Orde red By: Khanh Talbert on 06-14-2024 Glucose [Mass/Vol] 510 mg/dL Critically high 70 - 1 00 mg/dL [facility] Interpretation and review of laboratory results Abnormal [facility] Laboratory - Chemistry and C hemistry - challengeon 06-14-2024 Glucose [Mass/Vol] 353 mg/dL High 70 - 100 mg/dL [facility] Glucose [Mass/Vol] mg/dL High 70 - 100 mg/dL [facility] Comment on above: Result Not Confirmed ; Glucose [Mass/Vol] mg/dL High 70 - 100 mg/dL [facility] Comment on above: Caregiver Notified; Glucose [Mass/Vol] 379 mg/dL High 70 - 100 mg/dL [facility] Glucose [Mass/Vol] 246 mg/dL High 70 - 100 mg/dL [facility] Procalcitonin [Mass/Vol] 0.61 ng/mL High 0.0 0 - 0.09 ng/mL [facility] CRP [Mass/Vol] 170.8 mg/L High NINF - 10.0 mg/L [facility] Troponin I.cardiac [Mass/Vol] ng/mL NINF - 0.034 ng/mL [facility] Laboratory - Chemistry and C hemistry - challengeOrdered By: Elsi Arriola on 06-14-2024 Magnesium [Mass/Vol] 1.8 mg/dL 1.6 - 2 .3 mg/dL [facility] MAGNESIUMon 06-14-2024 Magnesium [Mass/Vol] 1.8 mg/dL Normal 1.6-2.3 [facility] Comment on above: Performed By: #### L AB103, [id number], LAB17, [id number] ####Editorial Project Manager: IRWIN CONTRERAS ([id number])[facility] (SBHLAB)[address] [place] [address] Magnesium [Mass/Vol]Ordered By: Elsi Arriola on 06-14-2024 Interpretation and review of laboratory results Normal [facility] No Panel Informationon 06-14 Interpretation and review of laboratory results Abnormal [facility] Performed by: [facility], [address] [place] [address] CLIA ID: [id number] [facility] Interpretation and review of laboratory results Abnormal [facility] Performed by: [facility], [address] [address] CLIA ID: [id number] [facility] Interpretation and review of laboratory results Abnormal [facility] Performed by: [facility], [address] [facility] [address] CLIA ID: [id number] [facility] Interpretation and review of laboratory results Abnormal [facility] Performed by: [facility], [address] [facility] [address] CLIA ID: [id number] [facility] Interpretation and review of laboratory results Abnormal [facility] Performed by: [facility] [place] [facility], [address] [facility] [address] CLIA ID: [id number] [facility] No Panel InformationOrdered By: Mary Hart on 06-14-2024 Escherichia coli Detected Abnormal Not Detected [facility] Interpretation and review of laboratory results Abnormal [facility] Methodology: Multiplex PCR The [employer] BCID panel can detect the following organisms: E. faecalis, E. faecium, Staphylococcus spp., S. aureus, S. epidermidis, S. lugdunensis, Streptococcus spp., S. pyogenes (Group A), S. agalactiae (Group B), S. pneumoniae, A. baumannii complex, B. fragilis, H. influenzae, N. meningitidis, P. aeruginosa, S. maltophilia, Enterobacterales, E. cloacae complex, E. coli, K. aerogenes, K. oxytoca, K. pneumoniae, Proteus spp., Salmonella spp., S. marcescens, C. albicans, C. auris, C. glabrata, C. krusei, C. parapsilosis, C. tropicalis, and C. neoformans/gattii. The following antimicrobial resistance genes are reported if appropriate organisms are detected: mecA/C and Young/B. The following antimicrobial resistance genes are reported if detected and the appropriate organisms are detected: CTX-M, IMP, KPC, NDM, OXA-48-like, VIM, and mcr-1. [facility] PROCALCITONIN TESTon 024 PROCALCITONIN 0.61 ng/mL High 0.00-0.09 [facility] Comment on above: Result Comment: ORDE R COMMENTS: PCT <0.50 = Low risk of severe sepsis and/or septic shock. PCT >2.00 = High risk of severe sepsis and/or septic shock. Performed By: #### L [id number] ####Editorial Project Manager: MELE RITTER ([id number])[facility] ([facility])[address] [place] [address] Procalcitonin [Mass/Vol]on 08-14-2023 Interpretation and review of laboratory results Abnormal [facility] PCT <0.50 = Low risk of severe sepsis and/or septic shock. PCT >2.00 = High risk of severe sepsis and/or septic shock. [facility] Progress Noteon 06-14-2024 Progress Note Zosyn started due to 2 bcx + gram neg Previously was on rocephin Normal [facility] TROPONIN Ion 06-14-2024 Troponin I.cardiac [Mass/Vol] ng/mL Normal <0.034 [facility] Comment on above: Result Comment: MIGUEL Nichole COMMENTS: Patients with high levels of Biotin oral intake (ie >5 mg/day) may have falsely decreased Troponin levels. Performed By: #### L AB103, [id number], LAB17, [id number] ####Editorial Project Manager: IRWIN CONTRERAS ([id number])[facility] ([facility])[address] [place] [address] [place] Troponin I.cardiac [Mass/Vol ]on 06-14-2024 Interpretation and review of laboratory results Normal [facility] Patients with high levels of Biotin oral intake (ie >5 mg/day) may have falsely decreased Troponin levels. [facility] XR Chest 2 Viewson No gross consolidation or sizable infiltrate. Probable mild peribronchial thickening. Findings which may be seen with COPD. Consider correlation with PFTs. Report Dictated on Electronically Signed By: Kian Hamm MD Electronically Signed Date/Time: 06/14/2024 2:14 PM [facility] Near Page SYSTEM Patient Name: MARCIA ROONEY : 1945 Exam Date/Time: 06/14/2024 13:15 Procedure: XR CHEST 2 VIEWS Ordering Provider: CELIS JONATHAN Reason For Exam: DYSPNEA EXAMINATION: PA/Lateral chest INDICATION: DYSPNEA FINDINGS: There is no focal consolidation, sizable pleural effusion or pneumothorax. There is mild coarsening of the interstitium. There is flattening of the hemidiaphragms. The cardiac silhouette is mildly enlarged. There is calcification of aortic arch. 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 [facility] Kian Hamm MD - 06/14/2024 Patient Name: MARCIA ROONEY : 1945 Exam Date/Time: 06/14/2024 13:15 Procedure: XR CHEST 2 VIEWS Ordering Provider: CELIS JONATHAN Reason For Exam: DYSPNEA EXAMINATION: PA/Lateral chest INDICATION: DYSPNEA FINDINGS: There is no focal consolidation, sizable pleural effusion or pneumothorax. There is mild coarsening of the interstitium. There is flattening of the hemidiaphragms. The cardiac silhouette is mildly enlarged. There is calcification of aortic arch. 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 IMPRESSION: No gross consolidation or sizable infiltrate. Probable mild peribronchial thickening. Findings which may be seen with COPD. Consider correlation with PFTs. Report Dictated on Electronically Signed By: Kian Hamm MD Electronically Signed Date/Time: 06/14/2024 2:14 PM EST [facility] Radiology Study observation (narrative) [facility] alth XR Chest 2 ViewsOrdered By: Kian Hmam on 06-14-2024 [facility] Work Phone: ABO and Rh group Confirm Nom (Bld)on 06-13-2024 ABO group Nom (Bld) O [facility] D Ag Ql (RBC) Positive [facility] AMMONIAon 06-13-2024 Ammonia (P) [Mass/Vol] ug/dL Low 9-30 [facility] Comment on above: Performed By: #### L AB47 ####Editorial Project Manager: IRWIN CONTRERAS ([id number])[facility]AL[facility] ([facility])[address] [place] [address] BLOOD CULTUREon 06-13-2024 Bacteria identified Cx Nom (Bld) BLOOD CULTURE (AA) Reference ESCHERICHIA COLI Escherichia coli (AA) For identification and/or sensitivity, refer to culture collected on: 06/13/24 at 1722([id number]-[id number]) This is an edited result. Previous organism was Gram-negative bacilli on 06/14/2024 at 0609 EST. ORDER COMMENTS: Blood Collection Site: Left Antecubital [ S = SUSCEPTIBLE R = RESISTANT I = INTERMEDIATE S-DD = Susceptible-dose dependent NS = Non-susceptible NO = No Interpretation ] Normal [facility] Comment on above: Performed By: #### L AB462 #### Editorial Project Manager: MELE RITTER ([id number]) [facility] ([facility]) [address] [place] [address] Bacteria identified Cx Nom (Bld) BLOOD CULTURE (AA) Reference ESCHERICHIA COLI Escherichia coli (AA) This is an edited result. Previous organism was Gram-negative bacilli on 06/14/2024 at 0608 EST. ORDER COMMENTS: Blood Collection Site: Right Antecubital Organism: ESCHERICHIA COLI Antibiotic ELY Interpretation Status Ampicillin <=2 ug/ml S F Ampicillin / Sulbactam <=2 ug/ml S F Aztreonam <=1 ug/ml S F Cefazolin <=4 ug/ml S F Cefepime <=1 ug/ml S F Ceftriaxone <=1 ug/ml S F Ciprofloxacin <=0.25 ug/ml S F Gentamicin <=1 ug/ml S F Meropenem <=0.25 ug/ml S F Piperacillin / Tazobactam <=4 ug/ml S F Trimethoprim / Sulfamethoxazole <=20 ug/ml S F [ S = SUSCEPTIBLE R = RESISTANT I = INTERMEDIATE S-DD = Susceptible-dose dependent NS = Non-susceptible NO = No Interpretation ] [facility] Comment on above: Performed By: #### L [id number], [id number] ####Editorial Project Manager: MELE RITTER ([id number])[facility] ([facility])[address] [place] [address] BLOOD CULTURE IDENTIFICATION - ANAEROBICon 06-13-2024 BLOOD CULTURE IDENTIFICATION - ANAEROBIC ESCHERICHIA COLI, BLOOD (A) Reference Detected Not Detected ORDER COMMENTS: (A) Methodology: Multiplex PCR The [employer] BCID panel can detect the following organisms: E. faecalis, E. faecium, Staphylococcus spp., S. aureus, S. epidermidis, S. lugdunensis, Streptococcus spp., S. pyogenes (Group A), S. agalactiae (Group B), S. pneumoniae, A. baumannii complex, B. fragilis, H. influenzae, N. meningitidis, P. aeruginosa, S. maltophilia, Enterobacterales, E. cloacae complex, E. coli, K. aerogenes, K. oxytoca, K. pneumoniae, Proteus spp., Salmonella spp., S. marcescens, C. albicans, C. auris, C. glabrata, C. krusei, C. parapsilosis, C. tropicalis, and C. neoformans/gattii. The following antimicrobial resistance genes are reported if appropriate organisms are detected: mecA/C and Young/B. The following antimicrobial resistance genes are reported if detected and the appropriate organisms are detected: CTX-M, IMP, KPC, NDM, OXA-48-like, VIM, and mcr-1. Normal [facility] Comment on above: Performed By: #### L [id number], [id number] ####Editorial Project Manager: MELE RITTER ([id number])[facility] ([address] BLOOD TYPE AND SCREEN GELon 06-13-2024 ABO GROUPING O [facility] Comment on above: Performed By: #### L AB276 #### Editorial Project Manager: IRWIN CONTRERAS ([id number]) [facility] ([facility]) [address] RH TYPE IN BLOOD Positive Normal [facility] Comment on above: Performed By: #### L AB276 #### Editorial Project Manager: IRWIN CONTRERAS ([id number]) [facility] ([facility]) [address] Basic Metabolic Profile (BMP )on 06-13-2024 BUN/CRE 25.6 RATIO High 10-[address] [facility] Comment on above: Order Comment: 304-1 Performed By: #### L 500.2500, L100.0500 #### [facility] [address] [place], [address] CA,Total 8.9 mg/dL Normal 8.5-10.[address] [facility] Comment on above: Order Comment: 304-1 Performed By: #### L 500.2500, L100.0500 #### [facility] [address] [place], [address] Chloride [Moles/Vol] 101 mmol/L Normal 98-107 [facility] Comment on above: Order Comment: 304-1 Performed By: #### L 500.2500, L100.0500 #### [facility] [address] [place], [address] CO2 [Moles/Vol] 32.0 mmol/L Normal 21.0-32.[address] [facility] Comment on above: Order Comment: 304-1 Performed By: #### L 500.2500, L100.0500 #### [facility] [address] [place], [address] Creatinine [Mass/Vol] 0.74 mg/dL Normal 0.55-1.02 [facility] Comment on above: Order Comment: 304-1 Result Comment: The validity of the calculated GFR GFRAA in patients over 70 years has not been determined. Clinical correlation is essential. Performed By: #### L 500.2500, L100.0500 #### [facility] [address] [place], [address] EST GFR - AA 97 mL/min Normal >[address] [facility] Comment on above: Order Comment: 304-1 Result Comment: Afri can Sudanese GFR Calc Performed By: #### L 500.2500, L100.0500 #### [facility] [address] [place], [address] GAP 4 Low 5-[address] [facility] Comment on above: Order Comment: 304-1 Performed By: #### L 500.2500, L100.0500 #### [facility] [address] [place], [address] GFR/1.73 sq M.predicted among non-blacks MDRD (S/P/Bld) [Vol rate/Area] 80 mL/min/{1.73_m2} Normal >[address] [facility] Comment on above: Order Comment: 304-1 Result Comment: Non- GFR Calc Performed By: #### L 500.2500, L100.0500 #### [facility] [address] [place], [address] Glucose [Mass/Vol] 178 mg/dL High 74-106 [facility] Comment on above: Order Comment: 304-1 Result Comment: Fast ing Glucose result greater than or equal to 126 mg/dL suggests DIABETES MELLITUS per A.D.A. criteria. Performed By: #### L 500.2500, L100.0500 #### [facility] [address] [place], [address] Potassium [Moles/Vol] 3.3 mmol/L Low 3.5-5.1 [facility] Comment on above: Order Comment: 304-1 Performed By: #### L 500.2500, L100.0500 #### [facility] [address] [place], [address] Sodium [Moles/Vol] 137 mmol/L Normal 136-145 [facility] Comment on above: Order Comment: 304-1 Performed By: #### L 500.2500, L100.0500 #### [facility] [address] [place], [address] Urea nitrogen [Mass/Vol] 19 mg/dL High 7-[address] [facility] Comment on above: Order Comment: 304-1 Performed By: #### L 500.2500, L100.0500 #### [facility] [address] [place], [address] Blood type and Crossmatch pa anastasiia (Bld)on 06-13-2024 ABO group Nom (Bld) O [facility] Blood group antibody screen GEL Ql Negative [facility] D Ag Ql (RBC) Positive [facility] Blood urea nitrogen (BUN)/cr eatinine ratioOrdered By: Ondina Gray on 06-13-2024 Urea nitrogen/Creatinine [Mass ratio] 25.6 mg/mg High 05-[address] [facility] CBC W Auto Differential pane l (Bld)Ordered By: Jerrica Delcid on 06-13-2024 Erythrocyte distribution width (RBC) [Ratio] 13 % 11.5 - 15.0 % [facility] Hematocrit (Bld) [Volume fraction] 27.5 % Low 35.0 - 47.0 % [facility] Hemoglobin (Bld) [Mass/Vol] 9.3 g/dL Low 11.7 - 16.0 g/dL [facility] Interpretation and review of laboratory results Abnormal [facility] MCH (RBC) [Entitic mass] 31.2 pg 26. 0 - 34.0 pg [facility] MCHC (RBC) [Mass/Vol] 33.8 % 30.5 - 36.0 % [facility] MCV (RBC) [Entitic vol] 92.3 fL 77.0 - 99.0 fL [facility] Platelet mean volume (Bld) [Entitic vol] 10.1 fL 9.0 - 12.7 fL [facility] Platelets (Bld) [#/Vol] 191 10*3/uL 140 - 440 10*3/uL [facility] RBC (Bld) [#/Vol] 2.98 10*6/uL Low 3.80 - 5.2 0 10*6/uL [facility] WBC (Bld) [#/Vol] 9.5 10*3/uL 3.6 - 10.7 10*3/uL [facility] CBC WITH AUTO DIFFERENTIALon 06-13-2024 Erythrocyte distribution width (RBC) [Ratio] 13.0 % Normal 11.5-15.0 [facility] Comment on above: Performed By: #### L [id number], [id number] ####Editorial Project Manager: IRWIN CONRTERAS ([id number])[facility]IS MILLERBennett ([facility])[address] Hematocrit (Bld) [Volume fraction] 27.5 % Low 35.0-47.0 [facility] Comment on above: Performed By: #### L [id number], [id number] ####Editorial Project Manager: IRWIN RUELASEBONY ([id number])[facility] ([facility])[address] Hemoglobin (Bld) [Mass/Vol] 9.3 g/dL Low 11.7-16.0 [facility] Comment on above: Performed By: #### L [id number], [id number] ####Editorial Project Manager: IRWIN RUELASEBONY ([id number])[facility]LLEREHABIL[facility] SOU[facility] MEXICOBennett ([facility])[address] MCH (RBC) [Entitic mass] 31.2 pg Normal 26.0-34.0 [facility] Comment on above: Performed By: #### L [id number], [id number] ####Editorial Project Manager: IRWIN CONTRERAS ([id number])[facility] [place] ([facility])[address] MCHC 33.8 % Normal 30.5-36.0 [facility] Comment on above: Performed By: #### L VX9588, [id number] ####Editorial Project Manager: IRWIN CONTRERAS ([id number])[facility] ([facility])[address] MCV (RBC) [Entitic vol] 92.3 fL Normal 77.0-99.0 [facility] Comment on above: Performed By: #### L TC2636, [id number] ####Editorial Project Manager: IRWIN CONTRERAS ([id number])[facility] ([facility])[address] Platelet mean volume (Bld) [Entitic vol] 10.1 fL Normal 9.0-12.7 [facility] Comment on above: Performed By: #### L [id number], [id number] ####Editorial Project Manager: IRWIN CONTRERAS ([id number])[facility] ([facility])[address] Platelets (Bld) [#/Vol] 191 10*3/uL Normal 140-440 [facility] Comment on above: Performed By: #### L [id number], [id number] ####Editorial Project Manager: IRWIN CONTRERAS ([id number])[facility] [place] ([facility])[address] RBC (Bld) [#/Vol] 2.98 10*6/uL Low 3.80-5.20 [facility] Comment on above: Performed By: #### L [id number], [id number] ####Editorial Project Manager: IRWIN CONTRERAS ([id number])[facility] ([facility])[address] [place] [address] WBC (Bld) [#/Vol] 9.5 10*3/uL Normal 3.6-10.7 [facility] Comment on above: Performed By: #### L [id number], [id number] ####Editorial Project Manager: IRWIN CONTRERAS ([id number])[facility] ([facility])[address] [place] [address] CBC-Complete Blood Cnt No Di ffon 06-13-2024 Erythrocyte distribution width (RBC) [Ratio] 12.8 % Normal 11.6-14.[address] [facility] Comment on above: Order Comment: 304-1 Performed By: #### L 500.2500, L100.0500 #### [facility] [address] [place] [id number] Hematocrit (Bld) [Volume fraction] 29.5 % Low 37-[address] [facility] Comment on above: Order Comment: 304-1 Performed By: #### L 500.2500, L100.0500 #### [facility] [address] [place], [address] Hemoglobin (Bld) [Mass/Vol] 9.5 g/dL Low 12.0-15.[address] [facility] Comment on above: Order Comment: 304-1 Performed By: #### L 500.2500, L100.0500 #### [facility] [address] [place], [address] MCH (RBC) [Entitic mass] 30.5 pg Normal 27.0-32.[address] [facility] Comment on above: Order Comment: 304-1 Performed By: #### L 500.2500, L100.0500 #### [facility] [address] [place], [address] MCHC (RBC) [Mass/Vol] 32.2 g/dL Normal 32-36 [facility] Comment on above: Order Comment: 304-1 Performed By: #### L 500.2500, L100.0500 #### [facility] [address] [place], [address] MCV (RBC) [Entitic vol] 94.9 fL Normal 81-99 [facility] Comment on above: Order Comment: 304-1 Performed By: #### L 500.2500, L100.0500 #### [facility] [address] [place], [address] Platelet mean volume (Bld) [Entitic vol] 9.9 fL Normal 6.2-12.[address] [facility] Comment on above: Order Comment: 304-1 Performed By: #### L 500.2500, L100.0500 #### [facility] [address] [place], [address] Platelets (Bld) [#/Vol] 218 10*3/uL Normal 150-[address] [facility] Comment on above: Order Comment: 304-1 Performed By: #### L 500.2500, L100.0500 #### [facility] [address] [place], [address] RBC (Bld) [#/Vol] 3.11 10*6/uL Low 4.2-5.4 [facility] Comment on above: Order Comment: 304-1 Performed By: #### L 500.2500, L100.0500 #### [facility] [address] [place], [address] RDW SD 44.7 fl High 35.1-43.[address] [facility] Comment on above: Order Comment: 304-1 Performed By: #### L 500.2500, L100.0500 #### [facility] [address] [place], [address] WBC (Bld) [#/Vol] 10.0 10*3/uL Normal 4.4-11.0 [facility] Comment on above: Order Comment: 304-1 Performed By: #### L 500.2500, L100.0500 #### [facility] [address] [place], [address] COMPREHENSIVE METABOLIC PANE Wesley 06-13-2024 Albumin [Mass/Vol] 3.6 g/dL Normal 3.5-5.0 [facility] Comment on above: Performed By: #### Janeen CAMPBELL129, LAB17, [id number] ####Editorial Project Manager: IRWIN CONTRERAS ([id number])[facility] ([facility])[address] ALP [Catalytic activity/Vol] 146 U/L High 38-126 [facility] Comment on above: Performed By: #### Janeen AB129, LAB17, [id number] ####Editorial Project Manager: IRWIN CONTRERAS ([id number])[facility] ([facility])[address] ALT [Catalytic activity/Vol] 12 U/L Normal 0-34 [facility] Comment on above: Performed By: #### Janeen AB129, LAB17, [id number] ####Editorial Project Manager: IRWIN QUIÑONESCER ([id number])[facility] MAGDALENO ([facility])[address] Anion gap [Moles/Vol] 2 mmol/L Low 3-13 [facility] Comment on above: Performed By: #### L AB129, LAB17, [id number] ####Editorial Project Manager: IRWIN DIANE ([id number])[facility] [place] ([facility])[address] AST [Catalytic activity/Vol] 36 U/L Normal 15-46 [facility] Comment on above: Performed By: #### L AB129, LAB17, [id number] ####Editorial Project Manager: IRWIN DIANE ([id number])[facility] ([facility])[address] Bilirubin [Mass/Vol] 2.2 mg/dL High 0.2-1.3 [facility] Comment on above: Performed By: #### L AB129, LAB17, [id number] ####Editorial Project Manager: IRWIN DIANE ([id number])[facility] ([facility])[address] Calcium [Mass/Vol] 8.9 mg/dL Normal 8.4-10.4 [facility] Comment on above: Performed By: #### L AB129, LAB17, [id number] ####Editorial Project Manager: IRWIN DIANE ([id number])[facility]ELRE[facility] ([facility])[address] [place] [address] [place] Chloride [Moles/Vol] 95 mmol/L Low 98-107 [facility] Comment on above: Performed By: #### L AB129, LAB17, [id number] ####Editorial Project Manager: IRWIN SALAZARCIARAEBONY ([id number])[facility]ELRE[facility]ABIL[facility]ON ([facility])[address] CO2 [Moles/Vol] 36 mmol/L High 22-30 [facility] Comment on above: Performed By: #### L AB129, LAB17, [id number] ####Editorial Project Manager: IRWIN CONTRERAS ([id number])[facility] ([facility])[address] Creatinine [Mass/Vol] 0.67 mg/dL Normal 0.52-1.04 [facility] Comment on above: Performed By: #### L AB129, LAB17, [id number] ####Editorial Project Manager: IRWIN CONTRERAS ([id number])[facility] ([facility])[address] GLOMERULAR FILTRATION RATE ML/MIN/1.73 SQ M.PREDICTED 89.6 mL/min/1.73m*2 Normal >60.0 [facility] Comment on above: Result Comment: Calc ulation based on the Chronic Kidney Disease Epidemiology Collaboration (CKD-EPI) equation refit without adjustment for race ORDER COMMENTS: Interpret with caution: Slightly hemolyzed. Performed By: #### L AB129, LAB17, [id number] ####Editorial Project Manager: IRWIN CONTRERAS ([id number])[facility] ([facility])[address] [place] [address] [place] Glucose [Mass/Vol] 180 mg/dL High 70-100 [facility] Comment on above: Performed By: #### L AB129, LAB17, [id number] ####Editorial Project Manager: IRWIN CONTRERAS ([id number])[facility] ([facility])[address] [place] [address] [place] Potassium [Moles/Vol] 3.9 mmol/L Normal 3.5-5.1 [facility] Comment on above: Performed By: #### L AB129, LAB17, [id number] ####Editorial Project Manager: IRWIN CONTRERAS ([id number])[facility] ([facility])[address] [place] [address] [place] Protein [Mass/Vol] 6.8 g/dL Normal 6.3-8.2 [facility] Comment on above: Performed By: #### L AB129, LAB17, [id number] ####Editorial Project Manager: IRWIN CONTRERAS ([id number])[facility] [place] ([facility])[address] Sodium [Moles/Vol] 133 mmol/L Low 135-145 [facility] Comment on above: Performed By: #### L AB129, LAB17, [id number] ####Editorial Project Manager: IRWIN CONTRERAS ([id number])[facility] ([facility])[address] Urea nitrogen [Mass/Vol] 22 mg/dL High 7-17 [facility] Comment on above: Performed By: #### L AB129, LAB17, [id number] ####Editorial Project Manager: IRWIN CONTRERAS ([id number])[facility] ([facility])[address] ABDOMEN PELVIS W CONTRAST on 06-13-2024 CT ABDOMEN PELVIS W CONTRAST Patient Name: MARCIA ROONEY : 1945 Exam Date/Time: 06/13/2024 17:00 Procedure: CT ABDOMEN PELVIS W CONTRAST Ordering Provider: ALEX MEJGON Reason For Exam: Abdominal pain, acute, nonlocalized CT ABDOMEN AND PELVIS Indication: 78-year-old female; abdominal pain; chcf patient; nausea and vomiting present two days Scan Parameters: Multiple axial CT images were obtained of the abdomen and pelvis. Coronal and sagittal reconstructions were reviewed as well. ALARA protocol. Dose reduction was employed with automated exposure control. Contrast: 75 mL of Isovue-370 IV contrast; no oral contrast Comparison: None. FINDINGS: Trace bilateral pleural effusions are present. Tracheobronchial tree calcifications are present. The heart is mildly enlarged. There is no pericardial effusion. Dense coronary artery atherosclerotic calcifications are present. Atherosclerotic calcifications are present along the aorta and branches (mild to moderate). The bones are osteopenic. There is grade 1 anterolisthesis L4-L5 with loss of disc space height and endplate spurring. There is superior endplate compression of L1 vertebral body (age indeterminate, no comparison). There are multilevel endplate degenerative changes with osseous spurring. There is central canal narrowing which is most prominent at L3-L4. There is fatty infiltration of the gluteus muscles and paraspinous muscles with atrophy of the iliopsoas muscles. There is no hepatic mass. The gallbladder is absent. The pancreas is mildly atrophied. The spleen is not enlarged. The adrenal glands are normal. The kidneys symmetrically enhance. Punctate right renal calculi are present. There is mild left renal hydronephrosis with prominence of the renal collecting system. There is prominence of the right renal pelvis. There is no discrete obstructing ureteral calculus. Pelvic phleboliths are present. There is mild bladder wall thickening which may be due to poor distention versus cystitis. The uterus is anteverted, to the right of midline. The anorectal verge is not well distended, limiting evaluation of the lumen. Fecal retention is present within the rectum. Multiple colonic diverticuli are present. There is poor distention of multiple loops of small bowel. A small sliding-type hiatal hernia is present. There is mild stranding adjacent to the right kidney and right psoas muscle. IMPRESSION: 1. Mild bladder wall thickening, correlate for cystitis. 2. Mild left renal hydronephrosis and prominence of the right renal collecting system. There is no obstructing ureteral calculus. There is mild stranding in the fat surrounding the right kidney and abutting the right psoas muscle. Consider infectious/inflammat ory process. 3. Colonic diverticulosis. Fecal retention, consider constipation. 4. Atherosclerotic disease. 5. Osteopenia. Superior endplate compression L1 (age indeterminant, no priors). L4-L5 grade 1 anterolisthesis. 6. Additional findings, as above. Report Dictated on Electronically Signed By: Sharifa Osullivan MD Electronically Signed Date/Time: 06/13/2024 7:13 PM EST [facility] Complaint of nausea and vomiting for the past 2 days. Patient seems to be a poor historian. Normal [facility] CT Abdomen and Pelvis W cont rast Sang 06-13-2024 1. Mild bladder wall thickening, correlate for cystitis. 2. Mild left renal hydronephrosis and prominence of the right renal collecting system. There is no obstructing ureteral calculus. There is mild stranding in the fat surrounding the right kidney and abutting the right psoas muscle. Consider infectious/inflammat ory process. 3. Colonic diverticulosis. Fecal retention, consider constipation. 4. Atherosclerotic disease. 5. Osteopenia. Superior endplate compression L1 (age indeterminant, no priors). L4-L5 grade 1 anterolisthesis. 6. Additional findings, as above. Report Dictated on Electronically Signed By: Sharifa Osullivan MD Electronically Signed Date/Time: 06/13/2024 7:13 PM [facility] [employer] RADIOLOGY SYSTEM Patient Name: MARCIA ROONEY : 1945 Exam Date/Time: 06/13/2024 17:00 Procedure: CT ABDOMEN PELVIS W CONTRAST Ordering Provider: ALEX MEJGON Reason For Exam: Abdominal pain, acute, nonlocalized CT ABDOMEN AND PELVIS Indication: 78-year-old female; abdominal pain; chcf patient; nausea and vomiting present two days Scan Parameters: Multiple axial CT images were obtained of the abdomen and pelvis. Coronal and sagittal reconstructions were reviewed as well. ALARA protocol. Dose reduction was employed with automated exposure control. Contrast: 75 mL of Isovue-370 IV contrast; no oral contrast Comparison: None. FINDINGS: Trace bilateral pleural effusions are present. Tracheobronchial tree calcifications are present. The heart is mildly enlarged. There is no pericardial effusion. Dense coronary artery atherosclerotic calcifications are present. Atherosclerotic calcifications are present along the aorta and branches (mild to moderate). The bones are osteopenic. There is grade 1 anterolisthesis L4-L5 with loss of disc space height and endplate spurring. There is superior endplate compression of L1 vertebral body (age indeterminate, no comparison). There are multilevel endplate degenerative changes with osseous spurring. There is central canal narrowing which is most prominent at L3-L4. There is fatty infiltration of the gluteus muscles and paraspinous muscles with atrophy of the iliopsoas muscles. There is no hepatic mass. The gallbladder is absent. The pancreas is mildly atrophied. The spleen is not enlarged. The adrenal glands are normal. The kidneys symmetrically enhance. Punctate right renal calculi are present. There is mild left renal hydronephrosis with prominence of the renal collecting system. There is prominence of the right renal pelvis. There is no discrete obstructing ureteral calculus. Pelvic phleboliths are present. There is mild bladder wall thickening which may be due to poor distention versus cystitis. The uterus is anteverted, to the right of midline. The anorectal verge is not well distended, limiting evaluation of the lumen. Fecal retention is present within the rectum. Multiple colonic diverticuli are present. There is poor distention of multiple loops of small bowel. A small sliding-type hiatal hernia is present. There is mild stranding adjacent to the right kidney and right psoas muscle. [facility] RADIOLOGY [facility] Sharifa Osullivan MD - 06/13/2024 Patient Name: MARCIA ROOENY : 1945 Exam Date/Time: 06/13/2024 17:00 Procedure: CT ABDOMEN PELVIS W CONTRAST Ordering Provider: ALEX MEJGON Reason For Exam: Abdominal pain, acute, nonlocalized CT ABDOMEN AND PELVIS Indication: 78-year-old female; abdominal pain; chcf patient; nausea and vomiting present two days Scan Parameters: Multiple axial CT images were obtained of the abdomen and pelvis. Coronal and sagittal reconstructions were reviewed as well. ALARA protocol. Dose reduction was employed with automated exposure control. Contrast: 75 mL of Isovue-370 IV contrast; no oral contrast Comparison: None. FINDINGS: Trace bilateral pleural effusions are present. Tracheobronchial tree calcifications are present. The heart is mildly enlarged. There is no pericardial effusion. Dense coronary artery atherosclerotic calcifications are present. Atherosclerotic calcifications are present along the aorta and branches (mild to moderate). The bones are osteopenic. There is grade 1 anterolisthesis L4-L5 with loss of disc space height and endplate spurring. There is superior endplate compression of L1 vertebral body (age indeterminate, no comparison). There are multilevel endplate degenerative changes with osseous spurring. There is central canal narrowing which is most prominent at L3-L4. There is fatty infiltration of the gluteus muscles and paraspinous muscles with atrophy of the iliopsoas muscles. There is no hepatic mass. The gallbladder is absent. The pancreas is mildly atrophied. The spleen is not enlarged. The adrenal glands are normal. The kidneys symmetrically enhance. Punctate right renal calculi are present. There is mild left renal hydronephrosis with prominence of the renal collecting system. There is prominence of the right renal pelvis. There is no discrete obstructing ureteral calculus. Pelvic phleboliths are present. There is mild bladder wall thickening which may be due to poor distention versus cystitis. The uterus is anteverted, to the right of midline. The anorectal verge is not well distended, limiting evaluation of the lumen. Fecal retention is present within the rectum. Multiple colonic diverticuli are present. There is poor distention of multiple loops of small bowel. A small sliding-type hiatal hernia is present. There is mild stranding adjacent to the right kidney and right psoas muscle. IMPRESSION: 1. Mild bladder wall thickening, correlate for cystitis. 2. Mild left renal hydronephrosis and prominence of the right renal collecting system. There is no obstructing ureteral calculus. There is mild stranding in the fat surrounding the right kidney and abutting the right psoas muscle. Consider infectious/inflammat ory process. 3. Colonic diverticulosis. Fecal retention, consider constipation. 4. Atherosclerotic disease. 5. Osteopenia. Superior endplate compression L1 (age indeterminant, no priors). L4-L5 grade 1 anterolisthesis. 6. Additional findings, as above. Report Dictated on Electronically Signed By: Sharifa Osullivan MD Electronically Signed Date/Time: 06/13/2024 7:13 PM EST [facility] Radiology Study observation (narrative) [facility] He alth CT Abdomen and Pelvis W cont rast IVOrdered By: Sharifa Osullivan on 06-13-2024 [facility] [employer] Work Phone: Carbon dioxide measurementOr dered By: Ondina Gray on 06-13-2024 CO2 [Moles/Vol] 32.0 mmol/L 21.0-32.[address] [facility] Chloride measurementOrdered By: Ondina Gray on 06-13-2024 Chloride [Moles/Vol] 101 mmol/L 98-107 [facility] Comprehensive metabolic 1998 panelon 06-13-2024 Albumin [Mass/Vol] 3.6 g/dL 3.5 - 5.0 g/dL [facility] ALP [Catalytic activity/Vol] 146 U/L High 38 - 126 U/L [facility] ALT [Catalytic activity/Vol] 12 U/L 0 - 34 U/L [facility] Anion gap [Moles/Vol] 2 mmol/L Low 3 - 13 mmol/L [facility] AST [Catalytic activity/Vol] 36 U/L 15 - 46 U/L [facility] Bilirubin [Mass/Vol] 2.2 mg/dL High 0.2 - 1 .3 mg/dL [facility] Calcium [Mass/Vol] 8.9 mg/dL 8.4 - 10. 4 mg/dL [facility] Chloride [Moles/Vol] 95 mmol/L Low 98 - 10 7 mmol/L [facility] CO2 [Moles/Vol] 36 mmol/L High 22 - 30 mmol/L [facility] Creatinine [Mass/Vol] 0.67 mg/dL 0.52 - 1.04 mg/dL [facility] GFR/1.73 sq M.predicted (S/P/Bld) [Vol rate/Area] 89.6 mL/min - PINF [facility] Comment on above: Calculation based on the Chronic Kidney Disease Epidemiology Collaboration (CKD-EPI) equation refit without adjustment for race Glucose [Mass/Vol] 180 mg/dL High 70 - 100 mg/dL [facility] Interpretation and review of laboratory results Abnormal [facility] Potassium [Moles/Vol] 3.9 mmol/L 3.5 - 5.1 mmol/L [facility] Protein [Mass/Vol] 6.8 g/dL 6.3 - 8.2 g/dL [facility] Sodium [Moles/Vol] 133 mmol/L Low 135 - 145 mmol/L [facility] Urea nitrogen [Mass/Vol] 22 mg/dL High 7 - 17 mg/d L [facility] Interpret with caution: Slightly hemolyzed. [facility] ECG 12-LEADon 06-13-2024 ECG 12-LEAD IMPRESSION: Sinus rhythm Right bundle branch block no stemi no previous to compare Electronically Signed On 06-13-2024 23:47:57 EST by Neeru Baker [facility] ED Nursing Noteon 06-13-2024 ED Nursing Note Received report from previous RN and assumed care of pt. [facility] ED Nursing Note [facility]. Complaint of nausea and vomiting for the past 2 days. Patient seems to be a poor historian. Normal [facility] ED Provider Noteon ED Provider Note [facility] 4S EMERGENCY DEPARTMENT ENCOUNTER Pt Name: Marcia Rooney Birthdate 1945 Date of evaluation: 06/13/2024 Provider: Juan Palafox MD CHIEF COMPLAINT Chief Complaint Patient presents with Nausea HISTORY OF PRESENT ILLNESS (Location/Symptom, Timing/Onset, Context/Setting, Quality, Duration, Modifying Factors, Severity) Note limiting factors. HPI Marcia Rooney is a 78 y.o. female who presents to the emergency department from nursing facility with 1 day of nausea vomiting. Patient has a history of Alzheimer's dementia however baseline is unclear. Reported altered mental status. Patient reports 6 episodes of emesis, diarrhea. Denies chest pain, shortness of breath, fever, chills. Further history difficult to obtain due to patient's mental status. Nursing Notes were reviewed. REVIEW OF SYSTEMS (2+ for level 4; 10+ for level 5) Review of Systems Constitutional: Negative for chills, fatigue and fever. Respiratory: Negative for cough, chest tightness and shortness of breath. Cardiovascular: Negative for chest pain. Gastrointestinal: Positive for diarrhea, nausea and vomiting. Negative for abdominal pain. PAST MEDICAL HISTORY No past medical history on file. SURGICAL HISTORY No past surgical history on file. CURRENT MEDICATIONS Current Discharge Medication List CONTINUE these medications which have NOT CHANGED Details midodrine (Proamatine) 2.5 MG tablet Take 2.5 mg by mouth 3 times a day. acetaminophen (Tylenol) 325 MG tablet Take 650 mg by mouth every 6 hours as needed for mild pain (1-3). aspirin 81 MG EC tablet Take 81 mg by mouth daily. atorvastatin (Lipitor) 40 MG tablet Take 40 mg by mouth daily. bisacodyl (Dulcolax) 10 MG suppository Insert 10 mg into the rectum Daily as needed for constipation. bisacodyl (Dulcolax) 5 MG EC tablet Take 5 mg by mouth Daily as needed for constipation. Do not crush, chew, or split. bumetanide (Bumex) 1 MG tablet Take 1 mg by mouth daily. buPROPion XL (Wellbutrin XL) 150 MG 24 hr tablet Take 150 mg by mouth daily. Do not crush, chew, or split. clopidogrel (Plavix) 75 MG tablet Take 75 mg by mouth daily. Glucagon 1 MG/0.2ML solution Inject under the skin. glucose (Glutose) 40 % gel oral gel Take 15 g by mouth every 15 minutes as needed for low blood sugar. Insulin Glargine (TOUJEO SOLOSTAR SC) Inject 25 Units under the skin daily. levothyroxine (Synthroid, Levoxyl) 175 MCG tablet Take 175 mcg by mouth every morning (before breakfast). magnesium hydroxide (Milk of Magnesia) 800 MG/5ML suspension Take 30 mL by mouth Daily as needed for constipation. ondansetron (Zofran) 4 MG tablet Take 4 mg by mouth every 8 hours as needed for nausea or vomiting. pioglitazone (Actos) 30 MG tablet Take 30 mg by mouth daily. promethazine (Phenergan) 25 MG suppository Insert 25 mg into the rectum every 8 hours as needed for nausea or vomiting. venlafaxine XR (Effexor XR) 37.5 MG 24 hr capsule Take 37.5 mg by mouth daily. Do not crush or chew. ALLERGIES Patient has no allergy information on record. FAMILY HISTORY No family history on file. SOCIAL HISTORY Social History Socioeconomic History Marital status: Social Drivers of Health Financial Resource Strain: Low Risk (09/04/2023) Received from [facility] Overall Financial Resource Strain (CARDIA) Difficulty of Paying Living Expenses: Not hard at all Food Insecurity: Patient Unable To Answer (04/14/2024) Received from [facility] Hunger Vital Sign Worried About Running Out of Food in the Last Year: Patient unable to answer Ran Out of Food in the Last Year: Patient unable to answer Transportation Needs: Patient Unable To Answer (04/14/2024) Received from [facility] PRAPARE - Transportation Lack of Transportation (Medical): Patient unable to answer Lack of Transportation (Non-Medical): Patient unable to answer Housing Stability: Patient Unable To Answer (04/14/2024) Received from [facility] Housing Stability Vital Sign Unable to Pay for Housing in the Last Year: Patient unable to answer Homeless in the Last Year: Patient unable to answer SCREENINGS PHYSICAL EXAM (up to 7 for level 4, 8 or more for level 5) @[email or web address]@ Physical Exam Constitutional: General: She is awake. Appearance: She is ill-appearing. She is not toxic-appearing. Comments: AxO x 2 Cardiovascular: Rate and Rhythm: Normal rate and regular rhythm. Heart sounds: Murmur heard. Systolic murmur is present. Pulmonary: Effort: Pulmonary effort is normal. No respiratory distress. Breath sounds: Normal breath sounds. Abdominal: General: Abdomen is flat. Bowel sounds are normal. There is distension. Palpations: Abdomen is soft. Tenderness: There is no abdominal tenderness. Skin: General: Skin is warm and moist. Comments: Skin diffusely with yellow hue Neurological: Mental Status: She is alert. DIAGN (more content not included)... Normal [facility] ED Provider Note Emergency Department Encounter [facility] ED Patient: Marcia oRoney : 1945 Date of Evaluation: 06/13/2024 ED Supervising Physician: Rita Alex DO I personally evaluated Marcia Rooney and made/approved the management plan and take responsibility for the patient management. This will serve as my Supervisory note and shared attestation. I did perform a substantive portion of the visit including all aspects of the Medical Decision Making. I wore appropriate PPE for the entirety of this encounter. In brief, Marcia Rooney is a 78 y.o. that presents to the emergency department from nursing facility for nausea and vomiting that started yesterday. FDC also reports patient's hemoglobin is around 9 but we do not have a baseline. Patient has a history of dementia and we do not know her baseline. She is oriented to person and place in the ED. Endorses nausea with vomiting and a little bit of diarrhea. Denies chest pain, dyspnea, abdominal pain or urinary symptoms. Remainder of history is limited due to patient's mental status. Focused exam: General: Alert, ill-appearing Eyes: PERRL, EOMI, Conjunctiva normal Cardiac: Regular rhythm, normal rate, +systolic murmur Lungs: No respiratory distress, lungs clear to auscultation Abdomen: Soft but distended, nontender Extremities: No peripheral edema Skin: Warm and dry, appears jaundiced Neuro: no focal deficits. Oriented to person and place. Brief ED course/MDM: 78-year-old female presenting to the ED from nursing facility for vomiting. Patient also appears confused and we are unsure what her baseline is. She is AO x 2. She appears jaundiced. We do not have prior labs for comparison therefore a broad workup was obtained including type and screen, coags, ammonia and thyroid function. Alkaline phosphatase and bilirubin mildly elevated but AST/ALT are normal. No signs of obstruction on CT. We also had to straight cath to obtain a urine sample however this was a very small sample and could only be run as a urine culture. Her CT showed concerns for pyelonephritis and patient was febrile therefore she was started on Rocephin. She also tested positive for COVID in the ED and intermittently had oxygen saturations in the low 90s therefore we will plan to admit for Decadron and remdesivir. Diagnostics interpreted by me: none I personally discussed the patient's management with other clinicians: Admitting team Hospitalist All diagnostic, treatment, and disposition decisions were made by myself in conjunction with the Resident. I also supervised powell portions of any procedures performed by the Resident. For all further details of the patient's emergency department visit, please see their documentation. (Comment: Please note this report has been produced using speech recognition software and may contain errors related to that system including errors in grammar, punctuation, and spelling, as well as words and phrases that may be inappropriate. If there are any questions or concerns please feel free to contact the dictating provider for clarification.) Rita Alex, DO Acute Care [facility] Rita Alex, DO 06/13/240 [facility] Erythrocyte distribution wid th ratioOrdered By: Ondina Gray on 06-13-2024 Erythrocyte distribution width (RBC) [Ratio] 12.8 % 11.6-14.[address] [facility] Erythrocyte distribution wid th standard deviationOrdered By: Ondina Gray on 06-13-2024 Erythrocyte distribution width (RBC) [Entitic vol] 44.7 fL High 35.1-43.[address] [facility] Estimated glomerular filtrat ion rate (GFR) AmericanOrdered By: Ondina Gray on 06-13-2024 Estimated GFR (MDRD) Amer 97 mL/min >[address] [facility] Comment on above: GFR Calc FREE T4on 06-13-2024 Free T4 [Mass/Vol] 1.58 ng/dL Normal 0.78-2.19 [facility] Comment on above: Performed By: #### L [id number] ####Editorial Project Manager: IRWIN CONTRERAS ([id number])[facility] ([facility])[address] Free T4 [Mass/Vol]on 024 Free T4 Dialysis [Mass/Vol] 1.58 ng/dL 0.78 - 2.19 ng/dL [facility] Interpretation and review of laboratory results Normal [facility] Glomerular filtration rate ( GFR) estimationOrdered By: Ondina Gray on 06-13-2024 Estimated GFR (MDRD) Non-Af Amer 80 mL/min >[address] [facility] Comment on above: Non- GFR Calc Glucose measurementOrdered B y: Ondina Gray on 06-13-2024 Glucose [Mass/Vol] 178 mg/dL High 74-106 [facility] Comment on above: Fasting Glucose resu lt greater than or equal to 126 mg/dL suggests DIABETES MELLITUS per A.D.A. criteria. Hematocrit Auto (Bld) [Volum e fraction]Ordered By: Ondina Gray on 06-13-2024 Hematocrit (Bld) [Volume fraction] 29.5 % Low 37-[address] [facility] Hemoglobin measurementOrdere d By: Ondina Gray on 06-13-2024 Hemoglobin (Bld) [Mass/Vol] 9.5 g/dL Low 12.0-15.[address] [facility] LACTIC ACID WITH REFLEXon Lactate [Moles/Vol] 1.4 mmol/L Normal 0.7-2.0 [facility] Comment on above: Performed By: #### L [id number] ####Editorial Project Manager: IRWIN CONTRERAS ([id number])[facility] ([facility])[address] [place] [address] Laboratory - Chemistry and C hemistry - challengeon 06-13-2024 Troponin I.cardiac [Mass/Vol] 0.013 ng/mL NINF - 0.034 ng/mL [facility] TSH Qn 4.152 m[IU]/L [facility] h Troponin I.cardiac [Mass/Vol] ng/mL NINF - 0.034 ng/mL [facility] Lactate [Moles/Vol] 1.4 mmol/L 0.7 - 2. 0 mmol/L [facility] Ammonia (P) [Moles/Vol] umol/L Low 9 - 30 umol/L [facility] Laboratory - Coagulationon 1 08-13-2023 aPTT Coag (PPP) [Time] 31.6 s High 20.0 - 30.5 s [facility] INR Coag (PPP) [Relative time] 1.2 {INR} High 0.9 - 1.1 [facility] Comment on above: Recommended Anticoag ulant Therapy: SEE BELOW ----- INR of 2.0 - 3.0 : - Prophylaxis of Venous Thrombosis (high-risk surgery) - Treatment of Venous Thrombosis - Treatment of Pulmonary Embolism (Includes tissue heart valves, Acute Myocardial Infarction to prevent systemic embolism, Valvular Heart Disease, and Atrial Fibrillation) ----- INR of 2.5 - 3.5 : - Mechanical Prosthetic Valves (high risk) - If oral anticoagulant therapy is used to prevent Myocardial Infarction PT Coag (Bld) [Time] 13.5 s High 9.0 - 12.0 s [facility] Laboratory - Hematology and Cell countson 06-13-2024 Band form neutrophils (Bld) [#/Vol] 0.1 10*3/uL High NINF - 0.0 10*3/uL [facility] Band form neutrophils/100 WBC (Bld) 1 % High NINF - 0 % [facility] Lymphocytes (Bld) [#/Vol] 0.2 10*3/uL Low 1.0 - 4.3 10*3/uL [facility] Lymphocytes/100 WBC (Bld) 2 % Low 15 - 45 % [facility] Monocytes (Bld) [#/Vol] 0.5 10*3/uL 0.0 - 0.9 10*3/uL [facility] Monocytes/100 WBC (Bld) 5 % 5 - 13 % [facility] Neutrophils (Bld) [#/Vol] 8.8 10*3/uL High 1.8 - 7.5 10*3/uL [facility] RBC morphology finding Nom (Bld) Normal [facility] Segmented neutrophils/100 WBC (Bld) 92 % High 38 - 82 % [facility] Laboratory - Microbiology an d Antimicrobial susceptibilityon 06-13-2024 FLUAV RNA RAMILA+probe Ql (Resp) Not detected Not Detected [facility] FLUBV RNA RAMILA+probe Ql (Resp) Not detected Not Detected [facility] RSV RNA RAMILA+probe Ql (Resp) Not detected Not Detected [facility] SARS-CoV-2 (COVID-19) RNA RAMILA+probe Ql (Resp) Detected Abnormal Not Detected [facility] [facility] SARS-CoV-2 (COVID-19) RNA RAMILA+probe Ql (Unsp spec) Methodology: real-time, RT-PCR The SARS-CoV-2, Flu A/B, and RSV Combo assay is intended for in vitro diagnostic use under the FDA Emergency Use Authorization (EUA). This test has not been FDA cleared or approved. In compliance with this authorization, please visit www.fda.gov/media/ 5559/download or www.[employer].gov/media/ 876/download to access the applicable information sheets. [facility] MANUAL DIFFERENTIAL (CELLAVI JAY)on 06-13-2024 BAND NEUTROPHILS TOTAL PER COUNTED LEUKOCYTES BY MANUAL COUNT 1 Normal [facility] Comment on above: Performed By: #### L [id number], [id number] ####Editorial Project Manager: IRWIN CONTRERAS ([id number])[facility] ([facility])[address] [place] [address] BANDS (10*3/UL) IN BLOOD-CELLAVISION 0.1 10*3/uL High <=0.0 [facility] Comment on above: Performed By: #### L [id number], [id number] ####Editorial Project Manager: IRWIN CONTRERAS ([id number])[facility] ([facility] [place] [address] [place] BASOPHILS TOTAL PER COUNTED LEUKOCYTES BY MANUAL COUNT Normal [facility] Comment on above: Performed By: #### L [id number], [id number] ####Editorial Project Manager: IRWIN CONTRERAS ([id number])[facility] ([facility])[address] [place] [address] [place] BLASTS TOTAL PER COUNTED LEUKOCYTES BY MANUAL COUNT Normal [facility] Comment on above: Performed By: #### L [id number], [id number] ####Editorial Project Manager: IRWIN RUELASEBONY ([id number])[facility] ([facility])[address] EOSINOPHILS TOTAL PER COUNTED LEUKOCYTES BY MANUAL COUNT Normal [facility] Comment on above: Performed By: #### L [id number], [id number] ####Editorial Project Manager: IRWIN RUELASEBONY ([id number])[facility] ([facility])[address] [place] [address] [place] LYMPHOCYTES (10*3/UL) IN BLOOD-CELLAVISION 0.2 10*3/uL Low 1.0-4.3 [facility] Comment on above: Performed By: #### L [id number], [id number] ####Editorial Project Manager: IRWIN CONTRERAS ([id number])[facility] ([facility])[address] [place] [address] [place] LYMPHOCYTES TOTAL PER COUNTED LEUKOCYTES BY MANUAL COUNT 2 [facility] Comment on above: Performed By: #### L [id number], [id number] ####Editorial Project Manager: IRWIN RUELASEBONY ([id number])[facility] ([facility])[address] [place] [address] [place] LYMPHOCYTES/100 LEUKOCYTES IN BLOOD-CELLAVISION 2 % Low 15-45 [facility] Comment on above: Performed By: #### L [id number], [id number] ####Editorial Project Manager: IRWIN RUELASEBONY ([id number])[facility] ([facility])[address] [place] [address] [place] METAMYELOCYTES TOTAL PER COUNTED LEUKOCYTES BY MANUAL COUNT [facility] Comment on above: Performed By: #### L [id number], [id number] ####Editorial Project Manager: IRWIN CONTRERAS ([id number])[facility] ([facility])[address] [place] [address] [place] MONOCYTES (10*3/UL) IN BLOOD-CELLAVISION 0.5 10*3/uL Normal 0.0-0.9 [facility] Comment on above: Performed By: #### L [id number], [id number] ####Editorial Project Manager: IRWIN CONTRERAS ([id number])[facility] ([facility])[address] [place] [address] [place] MONOCYTES TOTAL PER COUNTED LEUKOCYTES BY MANUAL COUNT 5 [facility] Comment on above: Performed By: #### L [id number], [id number] ####Editorial Project Manager: IRWIN CONTRERAS ([id number])[facility] ([facility])[address] [place] [address] [place] MONOCYTES/100 LEUKOCYTES IN BLOOD-DISHA 5 % Normal 5-13 [facility] Comment on above: Performed By: #### L [id number], [id number] ####Editorial Project Manager: IRWIN CONTRERAS ([id number])[facility] ([facility])[address] [place] [address] [place] MYELOCYTES COUNTED BY MANUAL COUNT [facility] Comment on above: Performed By: #### L [id number], [id number] ####Editorial Project Manager: IRWIN CONTRERAS ([id number])[facility] ([facility])[address] [place] [address] [place] NEUTROPHILS BAND FORM/100 LEUKOCYTES IN BLOOD-CELLAVISI 1 % High <=0 [facility] Comment on above: Performed By: #### L [id number], [id number] ####Editorial Project Manager: IRWIN CONTRERAS ([id number])[facility] ([facility])[address] [place] [address] [place] NEUTROPHILS TOTAL PER COUNTED LEUKOCYTES BY MANUAL COUNT 94 [facility] Comment on above: Performed By: #### L [id number], [id number] ####Editorial Project Manager: IRWIN CONTRERAS ([id number])[facility] ([facility])[address] [place] [address] [place] PROMYELOCYTES TOTAL PER COUNTED LEUKOCYTES BY MANUAL COUNT [facility] Comment on above: Performed By: #### L [id number], [id number] ####Editorial Project Manager: IRWIN CONTRERAS ([id number])[facility] ([facility])[address] RBC MORPHOLOGY IN BLOOD Normal Normal [facility] Comment on above: Performed By: #### L [id number], [id number] ####Editorial Project Manager: IRWIN CONTRERAS ([id number])[facility] ([facility])[address] SEGMENTED NEUTROPHILS (10*3/UL) IN BLOOD-CELLAVISION 8.8 10*3/uL High 1.8-7.5 [facility] Comment on above: Performed By: #### L [id number], [id number] ####Editorial Project Manager: IRWIN CONTRERAS ([id number])[facility] ([facility])[address] SEGMENTED NEUTROPHILS/100 LEUKOCYTES-CE 92 % High 38-82 [facility] Comment on above: Performed By: #### L [id number], [id number] ####Editorial Project Manager: IRWIN CONTRERAS ([id number])[facility] ([facility])[address] UNCLASSIFIED CELLS TOTAL PER COUNTED LEUKOCYTES BY MANUAL COUNT [facility] Comment on above: Performed By: #### L [id number], [id number] ####Editorial Project Manager: IRWIN CONTRERAS ([id number])[facility] ([facility])[address] VARIANT LYMPHOCYTES TOTAL PER COUNTED LEUKOCYTES BY MANUAL COUNT [facility] Comment on above: Performed By: #### L [id number], [id number] ####Editorial Project Manager: IRWIN CONTRERAS ([id number])[facility] ([facility])[address] MCV (mean corpuscular volume ) determinationOrdered By: Ondina Gray on 06-13-2024 MCV (RBC) [Entitic vol] 94.9 fL 81-99 [facility] Mean corpuscular hemoglobin (MCH) determinationOrdered By: Ondina Gray on 06-13-2024 MCH (RBC) [Entitic mass] 30.5 pg 27.0-32.[address] [facility] Mean corpuscular hemoglobin concentration (MCHC) determinationOrdered By: Ondina Gray on 06-13-2024 MCHC (RBC) [Mass/Vol] 32.2 g/dL 32-36 [facility] Mean platelet volume determi nationOrdered By: Ondina Gray on 06-13-2024 Platelet mean volume (Bld) [Entitic vol] 9.9 fL 6.2-12.[address] [facility] No Panel InformationOrdered By: Neeru Baker on 06-13-2024 P [place] 27 degrees [facility] Work Phone: MO Interval 167 ms [facility] Work Phone: QRS [place] -24 degrees [facility] Work Phone: QRSD Interval 143 ms [facility] Work Phone: QT Interval 390 ms [facility] Work Phone: QTC Interval 473 ms [facility] Work Phone: T Wave [place] 6 degrees [facility] Work Phone: [facility] Work Phone: No Panel Informationon 06-13 Sinus rhythm Right bundle branch block no stemi no previous to compare Electronically Signed On 06-13-2024 23:47:57 EST by Neeru Baker Neeru Almaguer MD - 06/13/2024 IMPRESSION: Sinus rhythm Right bundle branch block no stemi no previous to compare Electronically Signed On 06-13-2024 23:47:57 EST by Neeru Baker [facility] Atypical Lymphocytes Manual [facility] Bands Manual 1 [facility] Basophils Manual [facility] Blasts Manual [facility] Eosinophils Manual [facility] Interpretation and review of laboratory results Abnormal [facility] Lymphocytes Manual 2 [facility] Metamyelocytes Manual [facility] Monocytes Manual 5 [facility] Myelocytes Manual [facility] Neutrophils Manual 94 [facility] Promyelocytes Manual [facility] Unclassified Cells, Manual [facility] Interpretation and review of laboratory results Normal [facility] Interpretation and review of laboratory results Abnormal [facility] PROTIME AND APTTon aPTT Coag (Bld) [Time] 31.6 s High 20.0-30.5 [facility] Comment on above: Performed By: #### L [id number] ####Editorial Project Manager: IRWIN CONTRERAS ([id number])[facility] INR Coag (PPP) [Relative time] 1.2 {INR} High 0.9-1.1 [facility] Comment on above: Result Comment: Pancho mmended Anticoagulant Therapy: SEE BELOW ----- INR of 2.0 - 3.0 : - Prophylaxis of Venous Thrombosis (high-risk surgery) - Treatment of Venous Thrombosis - Treatment of Pulmonary Embolism (Includes tissue heart valves, Acute Myocardial Infarction to prevent systemic embolism, Valvular Heart Disease, and Atrial Fibrillation) ----- INR of 2.5 - 3.5 : - Mechanical Prosthetic Valves (high risk) - If oral anticoagulant therapy is used to prevent Myocardial Infarction Performed By: #### L [id number] ####Editorial Project Manager: IRWIN CONTRERAS ([id number])[facility] ([facility])[address] [place] [address] PT Coag (PPP) [Time] 13.5 s High 9.0-12.0 [facility] Comment on above: Performed By: #### L [id number] ####Editorial Project Manager: IRWIN CONTRERAS ([id number])[facility] ([facility])[address] Platelet countOrdered By: Shai Gray on 06-13-2024 Platelets (Bld) [#/Vol] 218 10*3/uL 150-[address] [facility] Potassium measurementOrdered By: Ondina Gray on 06-13-2024 Potassium [Moles/Vol] 3.3 mmol/L Low 3.5-5.1 [facility] RBC Auto (Bld) [#/Vol]Ordere d By: nOdina Gray on 06-13-2024 RBC (Bld) [#/Vol] 3.11 10*6/uL Low 4.2-5.4 [facility] SARS-COV-2, FLU A/B, AND RSV COMBOon 06-13-2024 SARS-CoV-2 (COVID-19) RNA RAMILA+probe Ql (Unsp spec) SARS-COV-2 (A) Reference Detected Not Detected RESPIRATORY SYNCYTIAL VIRUS Reference Not Detected Not Detected INFLUENZA A (CEPHEID) Reference Not Detected Not Detected INFLUENZA B (CEPHEID) Reference Not Detected Not Detected ORDER COMMENTS: Methodology: real-time, RT-PCR The SARS-CoV-2, Flu A/B, and RSV Combo assay is intended for in vitro diagnostic use under the FDA Emergency Use Authorization (EUA). This test has not been FDA cleared or approved. In compliance with this authorization, please visit www.fda.gov/media/ 4905/download or www.fda.gov/media/14 2436/download to access the applicable information sheets. Normal [facility] Comment on above: Performed By: #### L [id number] ####Editorial Project Manager: IRWIN CONTRERAS ([id number])[facility] ([facility])[address] [place] [address] SARS-CoV-2, Flu A/B, and RSV Comboon 06-13-2024 Interpretation and review of laboratory results Abnormal [facility] Serum anion gap measurementO rdered By: Ondina Gray on 06-13-2024 Anion gap [Moles/Vol] 4 mmol/L Low 5-15 [facility] Serum or plasma calcium josiane urement (mass/volume)Ordered By: Ondina Gray on 06-13-2024 Calcium [Mass/Vol] 8.9 mg/dL 8.5-10.1 [facility] Serum or plasma creatinine m easurement (mass/volume)Ordered By: Ondina Gray on 06-13-2024 Creatinine [Mass/Vol] 0.74 mg/dL 0.55-1.02 [facility] Comment on above: The validity of the calculated GFR & GFRAA in patients over 70 years has not been determined. Clinical correlation is essential. Serum or plasma urea nitroge n measurement (mass/volume)Ordered By: Ondina Gray on 06-13-2024 Urea nitrogen [Mass/Vol] 19 mg/dL High 7-[address] [facility] Sodium levelOrdered By: Don Gray on 06-13-2024 Sodium [Moles/Vol] 137 mmol/L 136-145 [facility] THYROID STIMULATING HORMONEo n 06-13-2024 THYROID STIMULATING HORMONE 4.152 uIU/mL Normal 0.465-4.680 [facility] Comment on above: Performed By: #### L [id number], [id number], [id number] ####Editorial Project Manager: IRWIN CONTRERAS ([id number])[facility] ([facility])[address] [place] [address] TROPONIN Ion 06-13-2024 Troponin I.cardiac [Mass/Vol] 0.013 ng/mL Normal <0.034 [facility] Comment on above: Result Comment: MIGUEL Nichole COMMENTS: Patients with high levels of Biotin oral intake (ie >5 mg/day) may have falsely decreased Troponin levels. Performed By: #### L [id number] ####Editorial Project Manager: IRWIN CONTRERAS ([id number])[facility])[address] [place] [address] TROPONIN, WITH SERIAL REFLEX on 06-13-2024 Troponin I.cardiac [Mass/Vol] ng/mL Normal <0.034 [facility] Comment on above: Result Comment: MIGUEL Nichole COMMENTS: Patients with high levels of Biotin oral intake (ie >5 mg/day) may have falsely decreased Troponin levels. Performed By: #### L AB129, [id number], [id number] ####Editorial Project Manager: IRWIN CONTRERAS ([id number])[facility] ([facility])[address] [place] [address] TSH Qnon 06-13-2024 Interpretation and review of laboratory results Normal [facility] Troponin I.cardiac [Mass/Vol ]on 06-13-2024 Interpretation and review of laboratory results Normal [facility] Patients with high levels of Biotin oral intake (ie >5 mg/day) may have falsely decreased Troponin levels. [facility] Interpretation and review of laboratory results Normal [facility] Patients with high levels of Biotin oral intake (ie >5 mg/day) may have falsely decreased Troponin levels. [facility] URINE CULTUREon 06-13-2024 Bacteria identified Cx Nom (U) URINE CULTURE (A) Reference ESCHERICHIA COLI >100,000 CFU/mL Escherichia coli (A) Organism: ESCHERICHIA COLI Antibiotic ELY Interpretation Status Amoxicillin / Clavulanate <=2 ug/ml S F Ampicillin <=2 ug/ml S F Ampicillin / Sulbactam <=2 ug/ml S F Aztreonam <=1 ug/ml S F Cefazolin <=4 ug/ml S F Cefepime <=1 ug/ml S F Ceftriaxone <=1 ug/ml S F Ciprofloxacin <=0.25 ug/ml S F Gentamicin <=1 ug/ml S F Meropenem <=0.25 ug/ml S F Nitrofurantoin <=16 ug/ml S F Piperacillin / Tazobactam <=4 ug/ml S F Trimethoprim / Sulfamethoxazole <=20 ug/ml S F [ S = SUSCEPTIBLE R = RESISTANT I = INTERMEDIATE S-DD = Susceptible-dose dependent NS = Non-susceptible NO = No Interpretation ] Normal [facility] Comment on above: Performed By: #### L [id number] ####Editorial Project Manager: MELE RITTER ([id number])[address] Vital signsOrdered By: Scotty Baker on 06-13-2024 Heart rate 88 /min bpm [facility] Work Phone: White blood cell (WBC) count Ordered By: Ondina Gray on 06-13-2024 WBC (Bld) [#/Vol] 10.0 10*3/uL 4.4-11.0 [facility] Tele[facility] (MAX) MARCIA ROONEY ([id number]) 1945 F Date Time Provider Department 06/10/24 BRANDON RUSH During your visit today, we recorded the following information about you: Carol Cerrato, ROXANNE 06/10/2024 1:[address] Rush, This patient was wearing a Event monitor and has not returned it. I called and left Messages at his home.It is Documented as Lost. If the patient still has the monitor, she can still return it and they will scan it. Thank You Carol Cerrato RN Holter Coordinator [facility] [phone] option 2 Allergies As of Date: 06/10/2024 (No Known Allergies) Date Reviewed: 04/16/2024 Reviewed by: Aliza Luis, RN - Fully Assessed Prescriptions as of 06/10/2024 - acetaminophen (TYLENOL) 325 mg tablet Take 1 tablet by mouth every 4 hours as needed for pain or fever (specify temp.). - levothyroxine (SYNTHROID) 175 mcg tablet Take 1 tablet by mouth daily before breakfast. Patient should start on April 17, 2024. - aspirin 81 mg chewable tablet 1 tablet by ORAL/FEEDING TUBE route once daily. Patient should start on April 17, 2024. - atorvastatin (LIPITOR) 40 mg tablet 1 tablet by ORAL/FEEDING TUBE route daily at bedtime. - clopidogrel (PLAVIX) 75 mg tablet 1 tablet by ORAL/FEEDING TUBE route once daily. Patient should start on April 17, 2024. - insulin lispro 100 unit/mL injection ADMINISTER CORRECTIONAL INSULIN REGARDLESS OF MEAL OR NUTRITION INTAKE Scale 1 If Blood Glucose (mg/dL) is: Less than 110 Give 0 units 111-150 Give 0 units 151-200 Give 1 unit 201-250 Give 2 units 251-300 Give 3 units 301-350 Give 4 units 351-400 Give 5 units Greater than 400 Give 5 units and Notify Provider Notify provider if 2 consecutive blood glucose values in the previous 24 hours are greater than 250 mg/dL and there have been no changes to the insulin regimen in the previous 24 hours. - midodrine (PROAMATINE) 2.5 mg tablet Take 1 tablet by mouth every 8 hours. - cyanocobalamin (VITAMIN B-12) 1,000 mcg tab Take 1 tablet by mouth every other day. - ACCU-CHEK GUIDE TEST STRIPS test strip - FREESTYLE MARIA EUGENIA 3 READER misc - FREESTYLE MARIA EUGENIA 3 SENSOR yuniel - buPROPion XL (WELLBUTRIN XL) 150 mg 24 hr tablet Take 150 mg by mouth once daily. - pioglitazone (ACTOS) 30 mg tablet Take 30 mg by mouth once daily. - bumetanide (BUMEX) 1 mg tablet Take 1 mg by mouth once daily. - TOUJEO SOLOSTAR U-300 INSULIN 300 unit/mL (1.5 mL) Inject 30 Units subcutaneously two times a day. - venlafaxine ER (EFFEXOR XR) 37.5 mg 24 hr capsule Take 37.5 mg by mouth once daily. Problem List As Of Date 06/10/2024 Noted Resolved Weakness [R53.1] 08/31/2023 Severe protein-calorie malnutrition (HCC) [E43] 09/04/2023 Hyperglycemia [R73.9] 04/12/2024 Cerebrovascular accident (CVA) due to occlusion*04/15/2024 Vision loss, left eye [H54.62] 04/15/2024 Peripheral polyneuropathy [G62.9] 04/15/2024 Gait disturbance [R26.9] 04/15/2024 Moderate dementia (HCC) [F03.B0] 04/15/2024 Hypothyroidism [E03.9] 04/15/2024 Encounter Status:Closed by CAROL CERRATO on 06/10/24 [facility] Hemoglobin A1con 05-23-2024 HbA1c (Bld) [Mass fraction] 9.5 % High 3.8-5.[address] [facility] Comment on above: Order Comment: 304-1 Result Comment: Norm al < 5.7 % Prediabetic 5.7 - 6.4 % Diabetic >or= 6.5 % Please note range changes. Performed By: #### M 100.2200, L400.0001 #### [facility] [address] [place], [address] T4 Free Directon 05-16-2024 T4 FREE DIRECT 1.04 ng/dL Normal 0.76-1.[address] [facility] Comment on above: Order Comment: 304-1 Performed By: #### M 100.2200, L400.0001 #### [facility] [address] [place], [address] Thyroid Stim Hormone (TSH)on 05-16-2024 TSH 9.000 uIU/mL High 0.358-3.[address] [facility] Comment on above: Order Comment: 304-1 Performed By: #### M 100.2200, L400.0001 #### [facility] [address] [place], [place], [id number] Urine Cultureon 05-12-2024 URC #1,2,5 If Gram Positive Diego susceptibility studies are desired, contact the Microbiology Laboratory within 48 hours [phone]. Actinomyces israelii [place] Count 25,000-50,000 Lactobacillus plantarum Lactobacillus plantarum SSIM [place] Count 1000-10,000 Staphylococcus simulans [place] Count 11,000-25,000 Corynebacterium jeikeium Streptococcus sanguinis Staphylococcus simulans: REACTION cefOXitin Susc Islt POS Corynebacterium jeikeium Gentamicin Islt ELY <=0.5 Nitrofurantoin Islt ELY <=16 S Oxacillin Susc Islt >=4 Tetracycline Islt ELY <=1 S Vancomycin Islt ELY <=0.5 S Streptococcus sanguinis: REACTION Ampicillin Islt ELY <=0.25 S Penicillin G Islt ELY <=0.06 S Cefotaxime Islt ELY <=0.12 S cefTRIAXone Islt ELY <=0.12 S Vancomycin Islt ELY 0.[address] [facility] Comment on above: Performed By: #### L 500.2500, L100.0500 #### [facility] [address] [place], [place], [id number] Urinalysis, Completeon 05-06 BACTERIA RARE Normal None Seen [facility] Comment on above: Order Comment: 304-1 Performed By: #### L 500.2500, L100.0500 #### [facility] [address] [place], [address] EPI,SQUAMOUS 0-5 SEEN Normal 5-[address] [facility] Comment on above: Order Comment: 304-1 Performed By: #### L 500.2500, L100.0500 #### [facility] [address] [place], [address] WBC 0-5 SEEN Normal 0-[address] [facility] Comment on above: Order Comment: 304-1 Performed By: #### L 500.2500, L100.0500 #### [facility] [address] [place], [address] Mucus Ql (Urine sed) 0 SEEN Normal [facility] Comment on above: Order Comment: 304-1 Performed By: #### L 500.2500, L100.0500 #### [facility] [address] [place], [address] RBC 0 SEEN Normal 0-[address] [facility] Comment on above: Order Comment: 304-1 Performed By: #### L 500.2500, L100.0500 #### [facility] [address] [place], [address] Basic Metabolic Profile (BMP )on 05-05-2024 BUN/CRE 22.7 RATIO High 10-[address] [facility] Comment on above: Order Comment: 414.2 Performed By: #### M 100.2200, L400.0001 #### [facility] [address] [place], [address] CA,Total 9.4 mg/dL Normal 8.5-10.[address] [facility] Comment on above: Order Comment: 414.2 Performed By: #### M 100.2200, L400.0001 #### [facility] [address] [place], [address] Chloride [Moles/Vol] 100 mmol/L Normal 98-107 [facility] Comment on above: Order Comment: 414.2 Performed By: #### M 100.2200, L400.0001 #### [facility] [address] [place], [address] CO2 [Moles/Vol] 33.0 mmol/L High 21.0-32.[address] [facility] Comment on above: Order Comment: 414.2 Performed By: #### M 100.2200, L400.0001 #### [facility] [address] [place], [address] Creatinine [Mass/Vol] 0.79 mg/dL Normal 0.55-1.02 [facility] Comment on above: Order Comment: 414.2 Result Comment: The validity of the calculated GFR GFRAA in patients over 70 years has not been determined. Clinical correlation is essential. Performed By: #### M 100.2200, L400.0001 #### [facility] [address] [place], [address] EST GFR - AA 90 mL/min Normal >[address] [facility] Comment on above: Order Comment: 414.2 Result Comment: Afri can Sudanese GFR Calc Performed By: #### M 100.2200, L400.0001 #### [facility] [address] [place], [address] GAP 7 Normal 5-[address] [facility] Comment on above: Order Comment: 414.2 Performed By: #### M 100.2200, L400.0001 #### [facility] [address] [place], [address] GFR/1.73 sq M.predicted among non-blacks MDRD (S/P/Bld) [Vol rate/Area] 75 mL/min/{1.73_m2} Normal >[address] [facility] Comment on above: Order Comment: 414.2 Result Comment: Non- GFR Calc Performed By: #### M 100.2200, L400.0001 #### [facility] [address] [place], [address] Glucose [Mass/Vol] 58 mg/dL Low 74-106 [facility] Comment on above: Order Comment: 414.2 Performed By: #### M 100.2200, L400.0001 #### [facility] [address] [place], [address] Potassium [Moles/Vol] 3.7 mmol/L Normal 3.5-5.1 [facility] Comment on above: Order Comment: 414.2 Performed By: #### M 100.2200, L400.0001 #### [facility] [address] [place], [address] Sodium [Moles/Vol] 139 mmol/L Normal 136-145 [facility] Comment on above: Order Comment: 414.2 Performed By: #### M 100.2200, L400.0001 #### [facility] [address] [place], [address] Urea nitrogen [Mass/Vol] 18 mg/dL Normal 7-[address] [facility] Comment on above: Order Comment: 414.2 Performed By: #### M 100.2200, L400.0001 #### [facility] [address] [place], [address] Basic Metabolic Profile (BMP )on 05-01-2024 BUN/CRE 28.1 RATIO High 10-[address] [facility] Comment on above: Order Comment: 304-1 Performed By: #### L 500.2500, L100.0500 #### [facility] [address] [place], [address] CA,Total 8.4 mg/dL Low 8.5-10.[address] [facility] Comment on above: Order Comment: 304-1 Performed By: #### L 500.2500, L100.0500 #### [facility] [address] [place], [address] Chloride [Moles/Vol] 102 mmol/L Normal 98-107 [facility] Comment on above: Order Comment: 304-1 Performed By: #### L 500.2500, L100.0500 #### [facility] [address] [place], [address] CO2 [Moles/Vol] 34.0 mmol/L High 21.0-32.[address] [facility] Comment on above: Order Comment: 304-1 Performed By: #### L 500.2500, L100.0500 #### [facility] [address] [place], [address] Creatinine [Mass/Vol] 0.82 mg/dL Normal 0.55-1.02 [facility] Comment on above: Order Comment: 304-1 Result Comment: The validity of the calculated GFR GFRAA in patients over 70 years has not been determined. Clinical correlation is essential. Performed By: #### L 500.2500, L100.0500 #### [facility] [address] [place], [address] EST GFR - AA 87 mL/min Normal >[address] [facility] Comment on above: Order Comment: 304-1 Result Comment: Afri can Sudanese GFR Calc Performed By: #### L 500.2500, L100.0500 #### [facility] [address] [place], [address] GAP 5 Normal 5-[address] [facility] Comment on above: Order Comment: 304-1 Performed By: #### L 500.2500, L100.0500 #### [facility] [address] [place], [address] GFR/1.73 sq M.predicted among non-blacks MDRD (S/P/Bld) [Vol rate/Area] 72 mL/min/{1.73_m2} Normal >[address] [facility] Comment on above: Order Comment: 304-1 Result Comment: Non- GFR Calc Performed By: #### L 500.2500, L100.0500 #### [facility] [address] [place], [address] Glucose [Mass/Vol] 99 mg/dL Normal 74-106 [facility] Comment on above: Order Comment: 304-1 Performed By: #### L 500.2500, L100.0500 #### [facility] [address] [place], [address] Potassium [Moles/Vol] 3.3 mmol/L Low 3.5-5.1 [facility] Comment on above: Order Comment: 304-1 Performed By: #### L 500.2500, L100.0500 #### [facility] [address] [place], [address] Sodium [Moles/Vol] 141 mmol/L Normal 136-145 [facility] Comment on above: Order Comment: 304-1 Performed By: #### L 500.2500, L100.0500 #### [facility] [address] [place], [address] Urea nitrogen [Mass/Vol] 23 mg/dL High 7-[address] [facility] Comment on above: Order Comment: 304-1 Performed By: #### L 500.2500, L100.0500 #### [facility] [address] [place], [address] Basic Metabolic Profile (BMP )on 04-29-2024 BUN/CRE 18.8 RATIO Normal 10-[address] [facility] Comment on above: Order Comment: 414.2 Performed By: #### L 500.2500, L100.0500, L501.9520 #### [facility] [address] [place], [address] CA,Total 9.2 mg/dL Normal 8.5-10.[address] [facility] Comment on above: Order Comment: 414.2 Performed By: #### L 500.2500, L100.0500, L501.9520 #### [facility] [address] [place], [address] Chloride [Moles/Vol] 101 mmol/L Normal 98-107 [facility] Comment on above: Order Comment: 414.2 Performed By: #### L 500.2500, L100.0500, L501.9520 #### [facility] [address] [place], [address] CO2 [Moles/Vol] 34.0 mmol/L High 21.0-32.[address] [facility] Comment on above: Order Comment: 414.2 Performed By: #### L 500.2500, L100.0500, L501.9520 #### [facility] [address] [place], [address] Creatinine [Mass/Vol] 0.85 mg/dL Normal 0.55-1.02 [facility] Comment on above: Order Comment: 414.2 Result Comment: The validity of the calculated GFR GFRAA in patients over 70 years has not been determined. Clinical correlation is essential. Performed By: #### L 500.2500, L100.0500, L501.9520 #### [facility] [address] [place], [address] EST GFR - AA 83 mL/min Normal >[address] [facility] Comment on above: Order Comment: 414.2 Result Comment: Afri can Sudanese GFR Calc Performed By: #### L 500.2500, L100.0500, L501.9520 #### [facility] [address] [place], [address] GAP 7 Normal 5-[address] [facility] Comment on above: Order Comment: 414.2 Performed By: #### L 500.2500, L100.0500, L501.9520 #### [facility] [address] [place], [address] GFR/1.73 sq M.predicted among non-blacks MDRD (S/P/Bld) [Vol rate/Area] 68 mL/min/{1.73_m2} Normal >[address] [facility] Comment on above: Order Comment: 414.2 Result Comment: Non- GFR Calc Performed By: #### L 500.2500, L100.0500, L501.9520 #### [facility] [address] [place], [address] Glucose [Mass/Vol] 149 mg/dL High 74-106 [facility] Comment on above: Order Comment: 414.2 Result Comment: Fast ing Glucose result greater than or equal to 126 mg/dL suggests DIABETES MELLITUS per A.D.A. criteria. Performed By: #### L 500.2500, L100.0500, L501.9520 #### [facility] [address] [place], [address] Potassium [Moles/Vol] 3.4 mmol/L Low 3.5-5.1 [facility] Comment on above: Order Comment: 414.2 Performed By: #### L 500.2500, L100.0500, L501.9520 #### [facility] [address] [place], [address] Sodium [Moles/Vol] 142 mmol/L Normal 136-145 [facility] Comment on above: Order Comment: 414.2 Performed By: #### L 500.2500, L100.0500, L501.9520 #### [facility] [address] [place], [address] Urea nitrogen [Mass/Vol] 16 mg/dL Normal 7-[address] [facility] Comment on above: Order Comment: 414.2 Performed By: #### L 500.2500, L100.0500, L501.9520 #### [facility] [address] [place], [address] CBC-Complete Blood Cnt No Di ffon 04-29-2024 Erythrocyte distribution width (RBC) [Ratio] 14.6 % Normal 11.6-14.[address] [facility] Comment on above: Order Comment: 414.2 Performed By: #### L 500.2500, L100.0500, L501.9520 #### [facility] [address] [place], [address] Hematocrit (Bld) [Volume fraction] 35.8 % Low 37-[address] [facility] Comment on above: Order Comment: 414.2 Performed By: #### L 500.2500, L100.0500, L501.9520 #### [facility] [address] [place], [address] Hemoglobin (Bld) [Mass/Vol] 11.0 g/dL Low 12.0-15.[address] [facility] Comment on above: Order Comment: 414.2 Performed By: #### L 500.2500, L100.0500, L501.9520 #### [facility] [address] [place], [address] MCH (RBC) [Entitic mass] 30.4 pg Normal 27.0-32.[address] [facility] Comment on above: Order Comment: 414.2 Performed By: #### L 500.2500, L100.0500, L501.9520 #### [facility] [address] [place], [address] MCHC (RBC) [Mass/Vol] 30.7 g/dL Low 32-36 [facility] Comment on above: Order Comment: 414.2 Performed By: #### L 500.2500, L100.0500, L501.9520 #### [facility] [address] [place], [address] MCV (RBC) [Entitic vol] 98.9 fL Normal 81-99 [facility] Comment on above: Order Comment: 414.2 Performed By: #### L 500.2500, L100.0500, L501.9520 #### [facility] [address] [place], [address] Platelet mean volume (Bld) [Entitic vol] 9.2 fL Normal 6.2-12.[address] [facility] Comment on above: Order Comment: 414.2 Performed By: #### L 500.2500, L100.0500, L501.9520 #### [facility] [address] [place], [address] Platelets (Bld) [#/Vol] 252 10*3/uL Normal 150-[address] [facility] Comment on above: Order Comment: 414.2 Performed By: #### L 500.2500, L100.0500, L501.9520 #### [facility] [address] [place], [address] RBC (Bld) [#/Vol] 3.62 10*6/uL Low 4.2-5.4 [facility] Comment on above: Order Comment: 414.2 Performed By: #### L 500.2500, L100.0500, L501.9520 #### [facility] [address] [place], [address] RDW SD 53.2 fl High 35.1-43.[address] [facility] Comment on above: Order Comment: 414.2 Performed By: #### L 500.2500, L100.0500, L501.9520 #### [facility] [address] [place], [address] WBC (Bld) [#/Vol] 4.9 10*3/uL Normal 4.4-11.0 [facility] Comment on above: Order Comment: 414.2 Performed By: #### L 500.2500, L100.0500, L501.9520 #### [facility] [address] [place], [address] Thyroid Stim Hormone (TSH)on 04-29-2024 TSH 48.100 uIU/mL High 0.358-3.[address] [facility] Comment on above: Order Comment: 414.2 Performed By: #### L 500.2500, L100.0500, L501.9520 #### [facility] [address] [place], [address] Potassiumon 04-18-2024 Potassium [Moles/Vol] 3.7 mmol/L Normal 3.5-5.1 [facility] Comment on above: Order Comment: 414-2 Performed By: #### L 501.5600 #### [facility] [address] [place], [address] CNDSon 04-16-2024 CNDS HNO ID: [id number] Author: BRANDON RUSH MD Service: Hospital Medicine Author Type: Nurse Practitioner Type: Discharge Summary Filed: 04/16/2024 16:56 Note Text: Attestation signed by Brandon Rush MD at 04/16/2024 4:56 PM I saw and examined the patient on the day of discharge. I have reviewed the notes and agree with the [facility] evaluation and management. Physical exam on the day of discharge as follows: Gen: NAD Resp: normal respiratory effort, symmetric chest rise CV: regular rate and rhythm DISCHARGE SUMMARY PATIENT NAME: Marcia Rooney ADMISSION DATE: 04/12/2024 DISCHARGE DATE: 04/16/2024 Attending Physician: Brandon Rush MD Code Status: Full Code Highest Readmission Risk Score: 19 The 30 day readmissions risk score is derived from an internally validated risk model which evaluates patient level characteristics, utilization history, medication orders and lab results up until the day of discharge. Patients with a score of 40 or above are considered highest risk for readmission. Specific patient level drivers will be listed at the bottom of the summary. Reason for Hospitalization: Hyperglycemia Principal Problem: Hyperglycemia (POA: Yes) Active Problems: Cerebrovascular accident (CVA) due to occlusion of small artery (HCC) (POA: Yes) Vision loss, left eye (POA: Yes) Peripheral polyneuropathy (POA: Yes) Gait disturbance (POA: Yes) Moderate dementia (HCC) (POA: Yes) Hypothyroidism (POA: Yes) Resolved Problems: * No resolved hospital problems. * Operations During Hospitalization: None Procedures During Hospitalization: MRI of Brain, Carotid artery ultrasound, EKG Hospital Course: This is a pleasant 78 year old female patient with a history of Type II diabetes, chronic depression, hypothyroidism, obesity, and dementia who was admitted on March for hyperglycemia. The patient, who lives alone, was found to be confused by neighbors thus prompting them to call Paramedics. Lately, there has been a decline in the patient's ability to care for herself and manage her own medications. Upon arrival to the emergency department, the patient was found to have a blood sugar greater than 300. Fortunately, her anion gap was normal. She was found to be mildly hyponatremic at 132. Abnormal LFTs were noted with an elevated total bilirubin of 1.5 and Alkaline phosphatase of 182. Her ALT was noted to be decreased at 22. CBC showed no leukocytosis with a WBC of 4.39. Hemoglobin and Hematocrit have remained stable during this admission. Urinalysis revealed 3+ glucose, and 2+ ketones. Approximately a month ago, the patient had a sudden loss of vision in her left eye which has been followed by ophthalmology. Due to the patient's mentation, she was unable to articulate the diagnosis. Since this occurrence, there has been an increase in falls even with the utilization of walker assistance. Of note, the patient was admitted from August through August for subdural hemorrhage status post fall. At that time, she was evaluated by Neurosurgeon who did not feel as though surgical intervention was warranted. Learning of this information prompted a MRI of the Brain.The radiological study showed a small acute nonhemorrhagic white matter lacunar infarcts in the left frontal and right parietal lobes. No significant mass effect. No other acute intracranial findings. In the setting of possible stroke and gait disturbance, neurology was consulted. Dr. Ibarra (Neurologist) felt the patient's loss of vision was likely vascular in nature or other process related to diabetes. It did not feel as though the findings were new. He also noted the tiny punctate infarctions are essentially an incidental finding likely related to her very poorly controlled diabetes with a glycosylated hemoglobin of 13". Dr. Ibarra recommended the following... Continue dual antiplatelet therapy for the next three weeks, then transition her to a single agent. Continue atorvastatin 40mg every day and improve glycemic control. 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 However, this could also be linked to Vitamin B12 deficiency. Laboratory studies revealed a level on the low end of normal at 262. She will be started on Vitamin B12 supplementation every other day. This should be followed up be a repeat laboratory study in approximately 4 weeks. Medical documentation shows, the patient was found to have a TSH level greater than 100 (August 2023), Since then, she has been managed on 150mcg of Levothyroxine. A repeat TSH performed during this admission revealed at TSH level of 74.269. After review of this findings, (more content not included)... Normal [facility] Lipid 1996 panelon 4 Cholesterol [Mass/Vol] 149 mg/dL Normal 0-199 [facility] Comment on above: Order Comment: Sanjuana cazares Type: BLOOD SPECIMEN Ordering Facility: [facility] Address: [address] [place] [address] Result Comment: <200 mg/dL, Desirable 200-239 mg/dL, Borderline high >239 mg/dL, High Performed By: #### 5 7021-8 #### [facility] CLIA [id number] [address] [place] [address] [place] Cholesterol in HDL [Mass/Vol] 46 mg/dL Normal >40 [facility] Comment on above: Order Comment: Sanjuana cazares Type: BLOOD SPECIMEN Ordering Facility: [facility] Address: [address] [place] [address] Result Comment: 40-5 9 mg/dL, Acceptable >59 mg/dL, High: Negative risk factor for coronary heart disease <40 mg/dL, Low: Positive risk factor for coronary heart disease Performed By: #### 5 7021-8 #### [facility] CLIA [id number] [address] [place] [address] [place] Cholesterol in LDL [Mass/Vol] 85 mg/dL Normal 0-129 [facility] Comment on above: Order Comment: Sanjuana cazares Type: BLOOD SPECIMEN Ordering Facility: [facility] Address: [address] [place] [address] Result Comment: <100 mg/dL, Optimal 100-129 mg/dL, Near optimal/above optimal 130-159 mg/dL, Borderline high 160-189 mg/dL, High >189 mg/dL, Very high Secondary prevention optimal LDL Cholesterol levels are recommended to be < 70 mg/dL Performed By: #### 5 7021-8 #### [facility] CLIA [id number] [address] [place] [address] [place] Cholesterol in LDL/Cholesterol in HDL [Mass ratio] 1.85 {ratio} Normal <2.54 [facility] Comment on above: Order Comment: Sanjuana cazares Type: BLOOD SPECIMEN Ordering Facility: [facility] Address: [address] [place] [address] Result Comment: Refe rence: 1. National Cholesterol Education Program ATP III Guideline At-A-Glance Quick Desk Reference: National Heart, Lung, and Blood [place]. National Institutes of Health. 2001: NIH Publication No. 01-3305. 2. An International Atherosclerosis Society position paper: global recommendations for the management of dyslipidemia: executive summary, Atherosclerosis. 2014: 232(2):410-413. Performed By: #### 5 7021-8 #### [facility] CLIA [id number] [address] [place], [place] [id number] [facility] Cholesterol in VLDL [Mass/Vol] 18 mg/dL Normal <30 [facility] Comment on above: Order Comment: Sanjuana cazares Type: BLOOD SPECIMEN Ordering Facility: [facility] Address: [address] [place] [address] Performed By: #### 5 7021-8 #### [facility] CLIA [id number] [address] [place] [address] [place] Cholesterol non HDL [Mass/Vol] 103 mg/dL Normal <130 [facility] Comment on above: Order Comment: Speci men Type: BLOOD SPECIMEN Ordering Facility: [facility] Address: [address] [place] [address] Result Comment: <130 mg/dL, Optimal 130-159 mg/dL, Near optimal/above optimal 160-189 mg/dL, Borderline high 190-219 mg/dL, High >219 mg/dL, Very high Secondary prevention optimal non HDL Cholesterol levels are recommended to be <100 mg/dL Performed By: #### 5 7021-8 #### [facility] CLIA [id number] [address] [place] [address] [place] Cholesterol.total/Choles terol in HDL [Mass ratio] 3.24 {ratio} Normal <5.10 [facility] Comment on above: Order Comment: Anahii men Type: BLOOD SPECIMEN Ordering Facility: [facility] Address: [address] [place] [address] Performed By: #### 5 7021-8 #### [facility] CLIA [id number] [address] [place] [address] [place] FASTING TIME 0 hrs Normal [facility] Comment on above: Order Comment: Speci men Type: BLOOD SPECIMEN Ordering Facility: [facility] Address: [address] [place] [address] Performed By: #### 5 7021-8 #### [facility] CLIA [id number] [address] [place] [address] [place] Triglyceride [Mass/Vol] 92 mg/dL Normal 30-149 [facility] Comment on above: Order Comment: Anahii men Type: BLOOD SPECIMEN Ordering Facility: [facility] Address: [address] [place] [address] Result Comment: <150 mg/dL, Normal 150-199 mg/dL, Borderline high 200-499 mg/dL, High >499 mg/dL, Very high Patients receiving either N-Acetylcysteine (NAC) or Metamizole prior to venipuncture, may have falsely depressed results. Performed By: #### 5 7021-8 #### [facility] CLIA [id number] [facility] [place] [address] [place] NURSING PROGon 04-16-2024 NURSING PROG HNO ID: [id number] Author: JERRY GARZON, RN Service: Nursing Author Type: Registered Nurse Type: Nursing Progress Note Filed: 04/16/2024 03:26 Note Text: Information discussed with patient about a stroke and explained the extra assessments being done. Patient has a very limited memory, will make sure she has the stroke literature. Normal [facility] THERAPY NTon 04-16-2024 THERAPY NT HNO ID: [id number] Author: ANGELY HERBERT, EVA Service: Physical Therapy Author Type: Associate Professor Of Physics Type: Therapy (PT/OT/Speech/Resp) Filed: 04/16/2024 13:53 Note Text: Attestation signed by Angely Herbert PT at 04/16/2024 1:53 PM I reviewed and agree with the documentation corresponding to this therapy visit. 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 Would need to be Mod I to return home safely AND is currently displaying decline in function below her baseline. 5 time [id number]-nc-gwjpr score also indicating fall risk. Recommended Discharge Disposition Due to: Functional deficits requiring ongoing therapy service prior to discharge home. Recommended Discharge Equipment: No equipment needs anticipated ASSESSMENT Response to Therapy Interventions: Cognitive Deficits, Good Participation in Activities, Low Activity Tolerance Pt fatigues quickly throughout sesssion. Limited mobility and pt unsafe to return home at this time. Cont to recommend SNF placement on d/c PRECAUTIONS Bed/Chair Alarm, Fall Risk CURRENT HOSPITAL COURSE Pt admitted 04/12 for hyperglycemia Relevant Past Medical History: DM, hypothyroidism, dementia HOME LIVING Patient Lives With: Self/Alone Assistance Available: PRN, Other: See Comment Comments: family Entry To Home: Other: See Comment (pt unable to recall) Number Of Stairs To Bed/Bath: pt unable to recall Tub/Shower Type: tub/shower with shower chair and GBs Laundry: pt reports systems are "outside the main door" and that she completes Equipment Owned: Cane, Walker- Wheeled, Grab Bars- Shower, Shower Chair PRIOR FUNCTIONAL LEVEL Poor Historian, Within Functional Limits, Required Assistance Assistance Required With: Finances, Shopping, Transportation Pt very questionable historian. Pt reports IND with ADLs, ambulation with the use of a FWW. Pt reports that she has had 3 falls over the past couple of months. Does not drive. Reports family gets her groceries. Reports she cooks, does cleaning, mgms medications. SUBJECTIVE Agreeable to session THERAPY DIAGNOSIS Reduced mobility-other, Decreased activities of daily living (ADL), Muscle Weakness (generalized), Unsteadiness on feet TREATMENT INTERVENTIONS Therapeutic Activity (35020), Gait Training (31230) Timed Code Treatment (minutes): 34 Skilled Treatment Time (minutes): 34 TRAINING AND EDUCATION PROVIDED Anatomy and Impact on Deficits, Bed Mobility, Benefits of In-Hospital Mobility, Discharge Planning, Positioning, Role of Physical Therapy, Standing Balance, Gait Pattern, Reduction of Deviations THERAPEUTIC SKILLS USED Activity Dosing, Cuing Verbal, Teach-Back for Education, Cuing Visual, Muscle Activation Facilitation, Movement Facilitation, Physical Assist FUNCTIONAL STATUS Bed Mobility Rolling: Additional Information, Supervision Supine To Sit: Supervision Sit to Supine: Supervision Scooting: Supervision Transfers Sit To Stand: Minimal Assistance Stand To Sit: Minimal Assistance Bed to Chair Gait Moderate Assistance Reports fatigue following prolonged standing requesting to return to recliner Gait Device: Wheeled Walker General Deviations/Observati ons: Catia decreased, Flexed trunk posture, Narrow Base of Support, Step length decreased Gait Distance (feet): 15'x2 Stairs Additional Information GOALS Patient will demonstrate progress to optimize functional mobility, maximize activity tolerance and endurance to maximize function upon discharge. Transfer Supine to/from Sit with: Modified Independent Transfer Sit to/from Stand with: Modified Independent Ambulate with: Modified Independent Distance: 50' Device: Wheeled Walker Ambulate Up and Down Steps with: Modified Independent Number of Steps: 5 Device: Rail Rehab Potential: Fair Progress Toward Goals: Progressing slower than expected PLAN PT Frequency: 3 Times Per Week Treatment Interventions: Education, Strengthening, Functional Mobility Training Plan for Next Visit: Fall Prevention, Gait Training, Sitting Balance, Standing Balance, Standing Tolerance SIGNATURE: Shy Roland PTA PATIENT NAME: Marcia Rooney DATE: April 16, 2024 TIME: 12:55 PM [facility] CONSULTon 04-15-2024 CONSULT HNO ID: [id number] Author: FRANKLIN IBARRA MD Service: Neurology General Author Type: Physician Type: Consults Filed: 04/15/2024 14:23 Note Text: INITIAL CONSULT - GENERAL NEUROLOGY SERVICE DATE: 04/15/2024 SERVICE TIME: 1:27 PM Current Attending Provider: Lalita Montalvo MD Chief Complaint: Stroke History of Present Illness: This is a patient with baseline dementia, poorly controlled diabetes admitted with hyperglycemia. Evaluation here discloses left eye vision loss and there was concern for a cerebrovascular basis for this and some of her gait disturbance and so we are asked to look in on her. The gait disturbance is chronic. The vision disturbance involves loss of vision in the entirety of the left eye, both nasal and temporal west, without impairment of vision in the right eye. This apparently occurred weeks or months ago and the patient was seen by ophthalmology as an outpatient. She is unable to tell me what their diagnosis was. Current Facility-Administere d Medications Medication Dose Route Frequency NaCl 0.9% iv flush bag 20 mL INTRAVENOUS PRN levothyroxine 150 mcg tab(s) (SYNTHROID) 150 mcg ORAL BEFORE BREAKFAST DAILY dextrose 40 % 15 g 15 g ORAL PRN Or glucagon 1 mg injection 1 mg INTRAMUSCULAR PRN Or dextrose 10% iv bolus 12.5 g INTRAVENOUS PRN insulin lispro injection (rapid acting) (ADMElog) SUBCUTANEOUS w MEALS midodrine 2.5 mg tab(s) (PROAMITINE) 2.5 mg ORAL q 8 H buPROPion XL 150 mg tab(s) (WELLBUTRIN XL) 150 mg ORAL DAILY venlafaxine ER 37.5 mg cap(s) (EFFEXOR XR) 37.5 mg ORAL DAILY NaCl 0.9% iv infusion 75 mL/hr INTRAVENOUS CONTINUOUS insulin lispro 10 Units injection (rapid acting) (ADMElog) 10 Units SUBCUTANEOUS DAILY wLUNCH insulin lispro 10 Units injection (rapid acting) (ADMElog) 10 Units SUBCUTANEOUS DAILY wDINNER insulin lispro 10 Units injection (rapid acting) (ADMElog) 10 Units SUBCUTANEOUS DAILY WITH BREAKFAST insulin glargine 28 Units pen (long acting) 28 Units SUBCUTANEOUS BID aspirin 81 mg chewable tab(s) 81 mg ORAL/FEEDING TUBE DAILY Or aspirin 300 mg suppository 300 mg RECTAL DAILY clopidogrel 75 mg tab(s) (PLAVIX) 75 mg ORAL/FEEDING TUBE DAILY atorvastatin 40 mg tab(s) (LIPITOR) 40 mg ORAL/FEEDING TUBE AT BEDTIME sodium chloride 0.9 % (flush) 2-10 mL (BD POSIFLUSH) 2-10 mL INTRAVENOUS DIRECTED PRN And perflutren lipid microspheres 1.1 mg/mL 1.3 mL injection (DEFINITY) 1.3 mL INTRAVENOUS DIRECTED PRN PAST MEDICAL HISTORY Diagnosis Date Diabetes (HCC) No past surgical history on file. Social History Tobacco Use Smoking status: Former Current packs/day: 0.50 Types: Cigarettes Smokeless tobacco: Never Vaping Use Vaping status: Never Used Substance Use Topics Alcohol use: Not Currently Drug use: Never No family history on file. ALLERGIES No Known Allergies REVIEW OF SYSTEMS: GENERAL: Has felt generally well, with no unintended weight loss or gain. HEENT: No recent changes in vision or hearing. NECK: No significant stiffness or pain. RESPIRATORY: No new shortness of breath. CARDIOVASCULAR: No chest pain or palpitations. GI: No nausea, vomiting, diarrhea, black or bloody stools. : No incontinence. MUSCULOSKELETAL: Negative for joint pain or swelling, back pain or muscle pain. SKIN: Negative for lesions, rash. NEURO: See HPI Objective PHYSICAL EXAM: General Appearance: Well appearing, alert, in no acute distress, well-hydrated, well nourished. Skin: Normal skin color and turgor. Head: Normocephalic with out lesions, masses or tenderness. Ears: External ears normal without drainage. Nose/Sinuses: Nares normal without drainage. Neck: Supple and nontender. Lungs: Lungs clear to auscultation without wheezing, rhonchi or rales. Heart: RRR without murmur, gallop, or rubs. Abdomen: Soft and nontender. Extremities: No deformities. Musculoskeletal: Nontender. Peripheral Pulses: Present. Neurological: Mental Status: Alert and oriented to place and situation with intact language function grossly. Thought process is normal, mood and affect normal. Cranial Nerves: CNII: Visual west are full to monocular confrontational testing of the right eye. There is no vision in the left eye. CNIII, IV, : The right eye pupil responds to light. The left pupil is fixed at approximately 6 mm. Extraocular movements are full without pathological nystagmoid movement. There is a left exophoria. Extraocular movement on the right is intact. CN V: Facial sensation is intact to light touch bilaterally. CN VII: Facial motor function symmetrically intact, without droop. CN VIII: Hearing intact to conversation. CN IX: Gag Reflex deferred. CN X: Palate elevates symmetrically. CN XI: Shoulder shrug is full bilaterally. CN XII: Tongue protrudes midline without atrophy or fasciculations. Sensory: Intact to light touch bilaterally though diminished distally in the lower extremities (more content not included)... Normal [facility] ECG COMPLETEon 04-15-2024 ECG COMPLETE Ventricular Rate : 73 BPM Atrial Rate : 73 BPM P-R Interval : 178 ms QRS Duration : 142 ms Q-T Interval : 440 ms QTC Calculation(Bazett) : 484 ms Calculated P [place] : -22 degrees Calculated R [place] : 0 degrees Calculated T [place] : -3 degrees Normal sinus rhythm with sinus arrhythmia Indeterminate axis Right bundle branch block Abnormal ECG When compared with ECG of 13-Dec-2023 12:36, Nonspecific T wave abnormality, worse in Inferior leads Nonspecific T wave abnormality now evident in Lateral leads Confirmed by LESLIE MCMILLAN MD ([id number]) on 04/15/2024 5:52:05 PM NAME : MARCIA ROONEY PID : [id number] : 1945 Gender : Female Race : ORD : [id number] Procedure Date : Apr 15 2024 10:26:09 Edit Date : Apr 15 2024 17:52:06 Diagnosis: Normal sinus rhythm with sinus arrhythmia Indeterminate axis Right bundle branch block Abnormal ECG When compared with ECG of 13-Dec-2023 12:36, Nonspecific T wave abnormality, worse in Inferior leads Nonspecific T wave abnormality now evident in Lateral leads Confirmed by LESLIE MCMILLAN MD ([id number]) on 04/15/2024 5:52:05 PM Test Reason : RT Location : [address] [place] [address] Overread By : LESLIE MCMILLAN MD Edited By : LESLIE MCMILLAN MD Referred By : , Acquired by : FRANCISCO SINGH [facility] ECHO WITH AGITATED SALINE CO NTRASTon 04-15-2024 ECHO WITH AGITATED SALINE CONTRAST Echocardiography Report: Transthoracic Echo [facility] Date of service: 04/15/2024 3:05:10 PM Ordering physician: LALITA MONTALVO Indication: Stroke Technologist: staff and Natalie López [facility] Interpreting physician: Taylor Kidd MD PATIENT: Name: MARCIA ROONEY : 1945 Age: 78 years Gender: F Primary rhythm: sinus. Secondary rhythm: PVC. Height: 170.20 cm BSA: 1.99 m Weight: 83.80 kg BMI: 28.9 kg/m Heart rate 65 bpm Blood pressure 152/63 mmHg Agitated saline was administered to rule out PFO. Color Doppler was utilized to interrogate the cardiac valves assessed and spectral Doppler was utilized to determine the flow velocities and pressure gradients reported in this exam. MEASUREMENTS: Value Indexed Normal Max aortic dimension 3.9 cm Ao < 3.8 Left atrial volume 51 ml (biplane A-L) 26 ml/m Michael <= 34 LV ID (diastole) 3.7 cm (2D) 1.86 cm/m LV ID (systole) 2.7 cm (2D) 1.36 cm/m IVS, leaflet tips 1.3 cm (2D) Posterior wall thickness 1.3 cm (2D) Left ventricular mass 166 g (2D) 84 g/m LV stroke volume 59 ml (2D biplane) LVOT stroke volume 79 ml 40 ml/m LV end diastolic volume 92 ml (2D biplane) 46.5 ml/m 29<=EDVi<62 LV end systolic volume 33 ml (2D biplane) 16.6 ml/m Ejection Fraction 64 % (2D biplane) EF > 54 FINDINGS: LEFT VENTRICLE The left ventricle is normal in size. There is mild left ventricular hypertrophy. Left ventricular systolic function is normal. Normal left ventricular diastolic function. Mitral annular lateral E/e': 10.1. Mitral annular septal E/e': 12.7. Wall Motion: All scored segments are normal. RIGHT VENTRICLE The right ventricle is normal in size. Right ventricular systolic function is normal. RV systolic tissue Doppler velocity is 8.2 cm/s. Tricuspid annular displacement is 1.9 cm. LEFT ATRIUM The left atrial cavity is normal in size. RIGHT ATRIUM The right atrial cavity is normal in size. MITRAL VALVE There is mild mitral annular calcification. There is no mitral stenosis. There is trace mitral valve regurgitation. There is mild thickening. There is mild calcification. The peak mitral valve gradient is 5 mmHg. The mean mitral valve gradient is 2 mmHg. The pressure half time is 88 msec. The peak mitral E/A ratio is 0.66. The average mitral E/e' ratio is 11.4. The mitral flow deceleration time is 304 msec. TRICUSPID VALVE There is no tricuspid stenosis. There is trace tricuspid valve regurgitation. AORTIC VALVE There is no aortic valve stenosis. There is mild (1+ - 2+) aortic valve regurgitation. There is mild thickening. There is mild calcification. The peak gradient is 7 mmHg (peak velocity = 130.5 cm/s). The mean gradient is 4 mmHg. The LVOT mean velocity is 83.0 cm/s. The LVOT diameter is 2.0 cm. The aortic VTI is 28.1 cm. The mean velocity in the aortic valve is 89.5 cm/s. The dimensionless valve index is 0.90. AV area is 2.81 cm (1.41 cm /m ) by continuity, VTI. The LVOT stroke volume index is 40 ml/m . PULMONIC VALVE There is no pulmonic stenosis. There is trace pulmonic valve regurgitation. The peak gradient is 5 mmHg. AORTA The visualized aorta is borderline dilated. Measurements - Sinus: 3.4 cm. Sinotubular junction 3.1 cm. Mid ascending aorta 3.9 cm. INTERATRIAL SEPTUM The interatrial septum is normal. There is no patent foramen ovale as detected by agitated saline contrast. INTERVENTRICULAR SEPTUM The interventricular septum is normal. There is no flow through the interventricular septum as detected by saline contrast. PERICARDIUM The pericardium is normal. There is no pericardial effusion. CONCLUSIONS: - Exam indication: Stroke - The left ventricle is normal in size. There is mild left ventricular hypertrophy. Left ventricular systolic function is normal. EF = 64 5% (2D biplane) - The right ventricle is normal in size. Right ventricular systolic function is normal. - The visualized aorta is borderline dilated with a maximal dimension of 3.9 cm. - There is no patent foramen ovale as detected by agitated saline contrast. - The patient has not had a prior CC echocardiographic exam for comparison. * * * Final * * * CC [employer] Image : [id number] DynamicsSISUID Normal [facility] MRI BRAIN WO IVCONon 04-15- 024 MRI BRAIN WO IVCON * * *Final Report* * * DATE OF EXAM: Apr 15 2024 8:31AM [facility] 0294 - MRI BRAIN WO IVCON / PROCEDURE REASON: Neuro deficit, acute, stroke suspected * * * * Physician Interpretation * * * * EXAMINATION: MRI BRAIN WO IVCON CLINICAL HISTORY: Neuro deficit, acute, stroke suspected TECHNIQUE: Routine noncontrast MRI protocol including diffusion images. MQ: [id number] COMPARISON: 09/05/2023 RESULT: Acute Change: Small focus of restricted diffusion in the left frontal valenzuela radiata as well as right parietal subcortical white matter. No corresponding susceptibility changes identified. Small foci of corresponding FLAIR hyperintensity are present. Findings are consistent with small acute nonhemorrhagic lacunar infarcts. No other areas of restricted diffusion. Hemorrhage: Punctate foci of susceptibility are seen within the right occipital parenchyma as well as cerebellar vermis superiorly and left lingual gyrus consistent with renal parenchymal microhemorrhages. Mass Lesion/ Mass Effect: No evidence of an intracranial mass or extra-axial fluid collection. No significant mass effect. Chronic Change: Scattered patchy and confluent areas of increased T2 and FLAIR signal are present in the supratentorial white matter which is nonspecific but likely represents chronic microvascular ischemia. Parenchyma: There is moderate generalized parenchymal volume loss. The brain parenchyma is otherwise within normal limits of signal intensity and morphology. Ventricles: Ventriculomegaly corresponds to the degree of parenchymal volume loss. Skull Base: Hypothalamic and pituitary region are grossly normal. Craniocervical junction is normal. No significant marrow replacement process. Vasculature: Major intracranial arterial structures, and dural venous sinuses show typical flow void, suggesting patency by spin echo criteria. Other: The visualized paranasal sinuses and mastoid air cells are clear except for mucosal thickening left maxillary sinus. The orbits and extracranial soft tissues are unremarkable. IMPRESSION: Small acute nonhemorrhagic white matter lacunar infarcts in the left frontal and right parietal lobes. No significant mass effect. No other acute intracranial findings. Moderate diffuse parenchymal volume loss, moderate sequela of chronic microvascular ischemia, several remote parenchymal microhemorrhages. Fitness/Wellness Director: PSCB Transcribe Date/Time: Apr 15 2024 8:40A Dictated by : NONA VALLADARES MD This examination was interpreted and the report reviewed and electronically signed by: NONA VALLADARES MD on Apr 15 2024 8:43AM EST [id number] CN Normal [facility] POTASSIUMon 04-15-2024 Potassium [Moles/Vol] 3.2 mmol/L Low 3.5-5.1 [facility] Comment on above: Order Comment: Speci men Type: BLOOD SPECIMEN Ordering Facility: [facility] Address: [address] [place] [address] [place] [address] Performed By: #### 5 7021-8 #### [facility] CLIA [id number] [facility] [employer] [place] [address] [place] THERAPY NTon 04-15-2024 THERAPY NT HNO ID: [id number] Author: DEEJAY KOENIG PTA Service: Physical Therapy Author Type: Associate Professor Of Physics Type: Therapy (PT/OT/Speech/Resp) Filed: 04/15/2024 15:46 Note Text: Attestation signed by Kin Dillard PT at 04/15/2024 4:29 PM I reviewed and agree with the documentation corresponding to this therapy visit. SIGNATURE: Kin Dillard PT DATE: April 15, 2024 TIME: 4:29 PM PHYSICAL THERAPY MISSED VISIT SERVICE DATE: 04/15/2024 SERVICE TIME: 1543 ROOM: [place] [address] ([facility]) Patient not seen due to Test / Procedure (CDL). SIGNATURE: Deejay Koenig PTA PATIENT NAME: Marcia Rooney DATE: April 15, 2024 TIME: 3:46 PM [facility] THERAPY NT HNO ID: [id number] Author: JERRELL JOSEPH COTA/L Service: Occupational Therapy Author Type: Cutter Operator Tile Type: Therapy (PT/OT/Speech/Resp) Filed: 04/15/2024 15:04 Note Text: Attestation signed by Dahiana Galvin OTR/L at 04/15/2024 3:54 PM I reviewed and agree with the documentation corresponding to this therapy visit. SIGNATURE: LEON Acosta/Janeen DATE: April 15, 2024 TIME: 3:54 PM OCCUPATIONAL THERAPY MISSED VISIT SERVICE DATE: 04/15/2024 SERVICE TIME: 1504 ROOM: [place] [address] Patient not seen due to Clinical Appropriateness (potassium is 3.2. Will continue to monitor). SIGNATURE: JENA Gray PATIENT NAME: Marcia Rooney DATE: April 15, 2024 TIME: 3:04 PM Normal [facility] TSH SerPl-aCncon 04-15-2024 TSH Qn 74.269 m[IU]/L High 0.358-3.740 [facility] Comment on above: Order Comment: Speci men Type: BLOOD SPECIMEN Ordering Facility: [facility] Address: [address] [place] [address] Result Comment: 3rd generation ultra sensitive TSH. Performed By: #### 5 7021-8 #### [facility] CLIA [id number] [address] [place] [address] [place] US CAROTID ARTERIES [place] VAS LABon 04-15-2024 US CAROTID ARTERIES [place] [facility] Non-Invasive Vascular Laboratory [facility] Carotid Duplex Bilateral/Complete Date of service/time: 04/15/2024 4:50:11 PM Name: MARCIA ROONEY Date of : 1945 Age: 78 years Gender: F Clinical Indication Cerebrovascular accident. TECHNIQUE -------- A carotid duplex ultrasound examination was performed, including grayscale imaging and color Doppler and spectral Doppler examination of the below mentioned arteries. FINDINGS -------- RIGHT SIDE Common carotid artery: Origin: PSV: 187 cm/s. EDV: 13 cm/s. Proximal: PSV: 132 cm/s. EDV: 18 cm/s. Mid: PSV: 68 cm/s. EDV: 11 cm/s. Distal: PSV: 74 cm/s. EDV: 11 cm/s. plaque at distal. Internal carotid artery: Origin: PSV: 48 cm/s. EDV: 9 cm/s. Proximal: PSV: 55 cm/s. EDV: 11 cm/s. Mid: PSV: 68 cm/s. EDV: 14 cm/s. Distal: PSV: 75 cm/s. EDV: 13 cm/s. plaque from origin to proximal. ICA/CCA Ratio: 1.0 External carotid artery: Proximal: PSV: 115 cm/s. EDV: 0 cm/s. Subclavian artery: Origin: PSV: 120 cm/s. EDV: 0 cm/s. Innominate artery: PSV: 94 cm/s. EDV: 0 cm/s. Vertebral artery: PSV: 53 cm/s. EDV: 12 cm/s. LEFT SIDE Common carotid artery: Proximal: PSV: 100 cm/s. EDV: 9 cm/s. Mid: PSV: 76 cm/s. EDV: 12 cm/s. Distal: PSV: 91 cm/s. EDV: 11 cm/s. plaque at distal. Internal carotid artery: Origin: PSV: 68 cm/s. EDV: 12 cm/s. Proximal: PSV: 89 cm/s. EDV: 16 cm/s. Mid: PSV: 86 cm/s. EDV: 11 cm/s. Distal: PSV: 79 cm/s. EDV: 11 cm/s. plaque from origin to proximal. ICA/CCA Ratio: 1.0 External carotid artery: Proximal: PSV: 144 cm/s. EDV: 0 cm/s. Subclavian artery: Proximal: PSV: 178 cm/s. EDV: 0 cm/s. Vertebral artery: PSV: 44 cm/s. EDV: 10 cm/s. IMPRESSION RIGHT SIDE Common carotid artery: Plaque visualized without evidence of hemodynamically significant stenosis. Internal carotid artery: 20-39% stenosis. Vertebral artery: Patent and antegrade flow noted. Innominate artery: Patent. Subclavian artery: Patent. LEFT SIDE Common carotid artery: Plaque visualized without evidence of hemodynamically significant stenosis. Internal carotid artery: 20-39% stenosis. Vertebral artery: Patent and antegrade flow noted. Subclavian artery: Patent. Technologist: Patricio Chamberlain Ordering physician: LALITA MONTALVO Interpreting physician: Sebas Campbell MD Final CC [employer] Image : [id number] DynamicsSISUID See Link below for Image Normal [facility] Vit B12 SerPl-ncon 024 Cobalamin (Vitamin B12) [Mass/Vol] 262 pg/mL Normal 193-986 [facility] Comment on above: Order Comment: Speci men Type: BLOOD SPECIMEN Ordering Facility: [facility] Address: [address] [place] [address] Performed By: #### 5 7021-8 #### [facility] CLIA [id number] [address] [place] [address] [place] Basic metabolic 2000 panelon 04-14-2024 Anion gap [Moles/Vol] 6 mmol/L Normal 5-16 [facility] Comment on above: Order Comment: Speci men Type: BLOOD SPECIMEN Ordering Facility: [facility] Address: [address] [place] [address] Performed By: #### 5 7021-8 #### [facility] CLIA [id number] [address] [place] [address] [place] Calcium [Mass/Vol] 9.9 mg/dL Normal 8.5-10.5 [facility] Comment on above: Order Comment: Speci men Type: BLOOD SPECIMEN Ordering Facility: [facility] Address: [address] [place] [address] Performed By: #### 5 7021-8 #### [facility] CLIA [id number] [address] [place] [address] [place] Chloride [Moles/Vol] 98 mmol/L Normal 98-107 [facility] Comment on above: Order Comment: Speci men Type: BLOOD SPECIMEN Ordering Facility: [facility] Address: [address] [place] [address] Performed By: #### 5 7021-8 #### [facility] CLIA [id number] [address] [place] [address] [place] CO2 [Moles/Vol] 34 mmol/L High 21-32 [facility] Comment on above: Order Comment: Speci men Type: BLOOD SPECIMEN Ordering Facility: [facility] Address: [address] [place] [address] Performed By: #### 5 7021-8 #### [facility] CLIA [id number] [address] [place] [address] [place] Creatinine [Mass/Vol] 0.71 mg/dL Normal 0.51-0.95 [facility] Comment on above: Order Comment: Speci men Type: BLOOD SPECIMEN Ordering Facility: [facility] Address: [address] [place] [address] Result Comment: Jacqueline ents receiving either N-Acetylcysteine (NAC) or Metamizole prior to venipuncture, may have falsely depressed results. Performed By: #### 5 7021-8 #### [facility] CLIA [id number] [address] [place] [address] OF [facility] Creatinine and Glomerular filtration rate.predicted panel (S/P/Bld) 87 mL/min/1.73m??? Normal >=60 [facility] Comment on above: Order Comment: Speci men Type: BLOOD SPECIMEN Ordering Facility: [facility] Address: [address] [place] [address] Result Comment: Paula mated Glomerular Filtration Rate (eGFR) is calculated using the 2020 CKD-EPI creatinine equation. This equation utilizes serum creatinine, sex, and age as parameters. The creatinine assay has traceable calibration to isotope dilution-mass spectrometry. Refer to KDIGO guidelines for clinical interpretation. In patients with unstable renal function, e.g. those with acute kidney injury, the eGFR may not accurately reflect actual GFR. Performed By: #### 5 7021-8 #### [facility] CLIA [id number] [address] [place] [address] [place] Glucose [Mass/Vol] 121 mg/dL High 70-100 [facility] Comment on above: Order Comment: Sanjuana cazares Type: BLOOD SPECIMEN Ordering Facility: [facility] Address: [address] [place] [address] Result Comment: The [place] [employer] (ADA) provides guidance for cutoff values for fasting glucose and random glucose. The ADA defines fasting as no caloric intake for at least 8 hours. Fasting plasma glucose results between 100 to 125 mg/dL indicate increased risk for diabetes (prediabetes). Fasting plasma glucose results greater than or equal to 126 mg/dL meet the criteria for diagnosis of diabetes. In the absence of unequivocal hyperglycemia, results should be confirmed by repeat testing. In a patient with classic symptoms of hyperglycemia or hyperglycemic crisis, random plasma glucose results greater than or equal to 200 mg/dL meet the criteria for diagnosis of diabetes. Reference: Standards of Medical Care in Diabetes 2016, [place] [employer]. Diabetes Care. 2016.39(Suppl 1). Results may be falsely elevated after the administration of Sulfapyridine. Results may be falsely depressed after the administration of Sulfasalazine. Performed By: #### 5 7021-8 #### [facility] CLIA [id number] [address] [place] [address] [place] Potassium [Moles/Vol] 3.4 mmol/L Low 3.5-5.1 [facility] Comment on above: Order Comment: Sanjuana cazares Type: BLOOD SPECIMEN Ordering Facility: [facility] Address: [address] [place] [address] Performed By: #### 5 7021-8 #### [facility] CLIA [id number] [address] [place] [address] [place] Sodium [Moles/Vol] 138 mmol/L Normal 136-145 [facility] Comment on above: Order Comment: Sanjuana cazares Type: BLOOD SPECIMEN Ordering Facility: [facility] Address: [address] [place] [address] Performed By: #### 5 7021-8 #### [facility] CLIA [id number] [address] [place] [address] [place] Urea nitrogen [Mass/Vol] 17 mg/dL Normal 02-14 [facility] Comment on above: Order Comment: Speci men Type: BLOOD SPECIMEN Ordering Facility: [facility] Address: [address] [place] [address] Performed By: #### 5 7021-8 #### [facility] CLIA [id number] [address] [place] [address] [place] CBC W Auto Differential pane l (Bld)on 04-14-2024 Basophils (Bld) [#/Vol] 10*3/uL Normal <0.11 [facility] Comment on above: Order Comment: Speci men Type: BLOOD SPECIMEN Ordering Facility: [facility] Address: [address] [place] [address] Performed By: #### 5 7021-8 #### [facility] CLIA [id number] [address] [place] [address] [place] Basophils/100 WBC (Bld) 0.2 % Normal [facility] Comment on above: Order Comment: Speci men Type: BLOOD SPECIMEN Ordering Facility: [facility] Address: [address] [place] [address] Performed By: #### 5 7021-8 #### [facility] CLIA [id number] [address] [place] [address] [place] Differential cell count method Nom (Bld) Auto Normal [facility] Comment on above: Order Comment: Speci men Type: BLOOD SPECIMEN Ordering Facility: [facility] Address: [address] [place] [address] Performed By: #### 5 7021-8 #### [facility] CLIA [id number] [address] [place] [address] [place] Eosinophils (Bld) [#/Vol] 0.03 10*3/uL Normal <0.46 [facility] Comment on above: Order Comment: Speci men Type: BLOOD SPECIMEN Ordering Facility: [facility] Address: [address] [place] [address] Performed By: #### 5 7021-8 #### [facility] CLIA [id number] [address] [place] [address] [place] Eosinophils/100 WBC (Bld) 0.7 % Normal [facility] Comment on above: Order Comment: Speci men Type: BLOOD SPECIMEN Ordering Facility: [facility] Address: [address] [place] [address] Performed By: #### 5 7021-8 #### [facility] CLIA [id number] [address] [place] [address] [place] Erythrocyte distribution width (RBC) [Ratio] 14.7 % Normal 11.5-15.0 [facility] Comment on above: Order Comment: Speci men Type: BLOOD SPECIMEN Ordering Facility: [facility] Address: [address] [place] [address] Performed By: #### 5 7021-8 #### [facility] CLIA [id number] [address] [place] [address] [place] Hematocrit (Bld) [Volume fraction] 37.3 % Normal 36.0-46.0 [facility] Comment on above: Order Comment: Speci men Type: BLOOD SPECIMEN Ordering Facility: [facility] Address: [address] [place] [address] Performed By: #### 5 7021-8 #### [facility] CLIA [id number] [address] [place] [address] [place] Hemoglobin (Bld) [Mass/Vol] 12.5 g/dL Normal 11.5-15.5 [facility] Comment on above: Order Comment: Speci men Type: BLOOD SPECIMEN Ordering Facility: [facility] Address: [address] [place] [address] Performed By: #### 5 7021-8 #### [facility] CLIA [id number] [address] [place] [address] [place] Immature granulocytes (Bld) [#/Vol] 0.03 10*3/uL Normal <0.10 [facility] Comment on above: Order Comment: Speci men Type: BLOOD SPECIMEN Ordering Facility: [facility] Address: [address] [place] [address] Performed By: #### 5 7021-8 #### [facility] CLIA [id number] [address] [place] [address] [place] Immature granulocytes/100 WBC (Bld) 0.7 % Normal [facility] Comment on above: Order Comment: Speci men Type: BLOOD SPECIMEN Ordering Facility: [facility] Address: [address] [place] [address] Performed By: #### 5 7021-8 #### [facility] CLIA [id number] [address] [place] [address] [place] Lymphocytes (Bld) [#/Vol] 1.31 10*3/uL Normal 1.00-4.00 [facility] Comment on above: Order Comment: Speci men Type: BLOOD SPECIMEN Ordering Facility: [facility] Address: [address] [place] [address] Performed By: #### 5 7021-8 #### [facility] CLIA [id number] [address] [place] [address] [place] Lymphocytes/100 WBC (Bld) 28.7 % Normal [facility] Comment on above: Order Comment: Speci men Type: BLOOD SPECIMEN Ordering Facility: [facility] Address: [address] [place] [address] Performed By: #### 5 7021-8 #### [facility] CLIA [id number] [address] [place] [address] [place] MCH (RBC) [Entitic mass] 30.9 pg Normal 26.0-34.0 [facility] Comment on above: Order Comment: Speci men Type: BLOOD SPECIMEN Ordering Facility: [facility] Address: [address] [place] [address] Performed By: #### 5 7021-8 #### [facility] CLIA [id number] [address] [place] [address] [place] MCHC (RBC) [Mass/Vol] 33.5 g/dL Normal 30.5-36.0 [facility] Comment on above: Order Comment: Speci men Type: BLOOD SPECIMEN Ordering Facility: [facility] Address: [address] [place] [address] Performed By: #### 5 7021-8 #### [facility] CLIA [id number] [address] [place] [address] [place] MCV (RBC) [Entitic vol] 92.1 fL Normal 80.0-100.0 [facility] Comment on above: Order Comment: Speci men Type: BLOOD SPECIMEN Ordering Facility: [facility] Address: [address] [place] [address] Performed By: #### 5 7021-8 #### [facility] CLIA [id number] [address] [place] [address] [place] Monocytes (Bld) [#/Vol] 0.35 10*3/uL Normal <0.87 [facility] Comment on above: Order Comment: Speci men Type: BLOOD SPECIMEN Ordering Facility: [facility] Address: [address] [place] [address] Performed By: #### 5 7021-8 #### [facility] CLIA [id number] [address] [place] [address] [place] Monocytes/100 WBC (Bld) 7.7 % Normal [facility] Comment on above: Order Comment: Speci men Type: BLOOD SPECIMEN Ordering Facility: [facility] Address: [address] [place] [address] Performed By: #### 5 7021-8 #### [facility] CLIA [id number] [address] [place] [address] [place] Neutrophils (Bld) [#/Vol] 2.83 10*3/uL Normal 1.45-7.50 [facility] Comment on above: Order Comment: Speci men Type: BLOOD SPECIMEN Ordering Facility: [facility] Address: [address] [place], [place] [address] [address] Performed By: #### 5 7021-8 #### [facility] CLIA [id number] [address] [place], [place] [address] [place] Neutrophils/100 WBC (Bld) 62.0 % Normal [facility] Comment on above: Order Comment: Speci men Type: BLOOD SPECIMEN Ordering Facility: [facility] Address: [address] [place] [address] Performed By: #### 5 7021-8 #### [facility] CLIA [id number] [address] [place] [address] [place] Nucleated RBC (Bld) [#/Vol] 10*3/uL Normal <0.01 [facility] Comment on above: Order Comment: Speci men Type: BLOOD SPECIMEN Ordering Facility: [facility] Address: [address] [place] [address] Performed By: #### 5 7021-8 #### [facility] CLIA [id number] [address] [place] [address] [place] Nucleated RBC/100 WBC (Bld) [Ratio] 0.0 /100 WBC Normal [facility] Comment on above: Order Comment: Speci men Type: BLOOD SPECIMEN Ordering Facility: [facility] Address: [address] [facility] [place] [address] Performed By: #### 5 7021-8 #### [facility] CLIA [id number] [address] [place] [address] [place] Platelet mean volume (Bld) [Entitic vol] 9.7 fL Normal 9.0-12.7 [facility] Comment on above: Order Comment: Speci men Type: BLOOD SPECIMEN Ordering Facility: [facility] Address: [address] [place] [address] Performed By: #### 5 7021-8 #### [facility] CLIA [id number] [address] [place], [place] [address] [place] Platelets (Bld) [#/Vol] 210 10*3/uL Normal 150-400 [facility] Comment on above: Order Comment: Speci men Type: BLOOD SPECIMEN Ordering Facility: [facility] Address: [address] [place] [address] Performed By: #### 5 7021-8 #### [facility] CLIA [id number] [address] [place], [place] [address] [facility] RBC (Bld) [#/Vol] 4.05 10*6/uL Normal 3.90-5.20 [facility] Comment on above: Order Comment: Speci men Type: BLOOD SPECIMEN Ordering Facility: [facility] Address: [address] [place] [id number] Performed By: #### 5 7021-8 #### [facility] CLIA [id number] [address] [place], [place] [address] [facility] WBC (Bld) [#/Vol] 4.56 10*3/uL Normal 3.70-11.00 [facility] Comment on above: Order Comment: Speci men Type: BLOOD SPECIMEN Ordering Facility: [facility] Address: [address] [place], [place] [id number] Performed By: #### 5 7021-8 #### [facility] CLIA [id number] [address] [place], [place] [address] [facility] THERAPY NTon 04-14-2024 THERAPY NT HNO ID: [id number] Author: MAIN DAHL PT Service: Physical Therapy Author Type: Associate Professor Of Physics Type: Therapy (PT/OT/Speech/Resp) Filed: 04/15/2024 15:21 Note Text: Attestation signed by Main Dahl PT at 04/15/2024 3:21 PM I reviewed and agree with the documentation corresponding to this therapy visit. 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 Would need to be Mod I to return home safely AND is currently displaying decline in function below her baseline. 5 time dxh-bz-zqldl score also indicating fall risk. Recommended Discharge Disposition Due to: Functional deficits requiring ongoing therapy service prior to discharge home. Recommended Discharge Equipment: No equipment needs anticipated ASSESSMENT Response to Therapy Interventions: Cognitive Deficits, Good Participation in Activities, Low Activity Tolerance Pt weak and very unsteady on her feet especially with mobility. She required Mod A and is at high risk for falls. Pt with decreased cognition and not safe to go home and make safe descisions. PRECAUTIONS Bed/Chair Alarm, Fall Risk CURRENT HOSPITAL COURSE Pt admitted 04/12 for hyperglycemia Relevant Past Medical History: DM, hypothyroidism, dementia HOME LIVING Patient Lives With: Self/Alone Assistance Available: PRN, Other: See Comment Comments: family Entry To Home: Other: See Comment (pt unable to recall) Number Of Stairs To Bed/Bath: pt unable to recall Tub/Shower Type: tub/shower with shower chair and GBs Laundry: pt reports systems are "outside the main door" and that she completes Equipment Owned: Cane, Walker- Wheeled, Grab Bars- Shower, Shower Chair PRIOR FUNCTIONAL LEVEL Poor Historian, Within Functional Limits, Required Assistance Assistance Required With: Finances, Shopping, Transportation Pt very questionable historian. Pt reports IND with ADLs, ambulation with the use of a FWW. Pt reports that she has had 3 falls over the past couple of months. Does not drive. Reports family gets her groceries. Reports she cooks, does cleaning, mgms medications. SUBJECTIVE Patient oriented to person and place only. Spoke with doctor about patient's deficits and weakness during our session. Dr. minre order MRI. THERAPY DIAGNOSIS Reduced mobility-other, Decreased activities of daily living (ADL), Muscle Weakness (generalized), Unsteadiness on feet TREATMENT INTERVENTIONS Therapeutic Activity (83947), Gait Training (12462) Timed Code Treatment (minutes): 24 Skilled Treatment Time (minutes): 24 TRAINING AND EDUCATION PROVIDED Anatomy and Impact on Deficits, Bed Mobility, Benefits of In-Hospital Mobility, Discharge Planning, Positioning, Role of Physical Therapy, Standing Balance, Gait Pattern, Reduction of Deviations THERAPEUTIC SKILLS USED Activity Dosing, Cuing Verbal, Teach-Back for Education, Cuing Visual, Muscle Activation Facilitation, Movement Facilitation, Physical Assist FUNCTIONAL STATUS Bed Mobility Rolling: Additional Information, Supervision Supine To Sit: Stand By Assistance, Additional Information Scooting: Supervision, Additional Information Required v/c Transfers Sit To Stand: Minimal Assistance, Additional Information cues for hand placement Stand To Sit: Minimal Assistance Bed to Chair Gait Additional Information, Moderate Assistance Pt c/o weakness in both upper thighs and needed to turn back. Pt reports loss of vision in her left eye. Pt with poor memory and recall. Pt not safe to be at home alone. Gait Device: Wheeled Walker General Deviations/Observati ons: Catia decreased, Flexed trunk posture, Narrow Base of Support, Step length decreased Gait Distance (feet): 35' x 2 Stairs Additional Information GOALS Patient will demonstrate progress to optimize functional mobility, maximize activity tolerance and endurance to maximize function upon discharge. Transfer Supine to/from Sit with: Modified Independent Transfer Sit to/from Stand with: Modified Independent Ambulate with: Modified Independent Distance: 50' Device: Wheeled Walker Ambulate Up and Down Steps with: Modified Independent Number of Steps: 5 Device: Rail Rehab Potential: Fair Progress Toward Goals: Progressing slower than expected PLAN PT Frequency: 3 Times Per W (more content not included)... [facility] THERAPY NT HNO ID: [id number] Author: MORRO SEAMAN OTR/L Service: Occupational Therapy Author Type: Cutter Operator Tile Type: Therapy (PT/OT/Speech/Resp) Filed: 04/14/2024 12:54 Note Text: Attestation signed by Morro Seaman OTR/Janeen at 04/14/2024 12:54 PM I reviewed and agree with the documentation corresponding to this therapy visit. SIGNATURE: LEON Gaming/Janeen DATE: April 14, 2024 TIME: 12:54 PM Occupational Therapy Treatment Summary SERVICE DATE: 04/14/2024 SERVICE TIME: 1115 to 1149 ROOM: [id number] OT 6 Clicks Score: 17 DISCHARGE RECOMMENDATIONS Subacute/SNF Recommended Discharge Disposition Comments: Pt lives alone and is currently requiring up to Mod A for self-care and Min A for transfers and mobility. High fall risk and not safe for home going. Limited by severe cognitive deficits and balance deficits. Recommended Discharge Disposition Due to: Functional deficits requiring ongoing therapy service prior to discharge home., ADL impairment, Cognitive deficits new/worsened, Functional status decline, Requires multiple therapy disciplines Anticipated Discharge Needs: Physical Assist at Home, Supervision at Home Physical Assist at Home for: Finances, Ambulation, Cleaning, Laundry, Meals, Medication Management, Stairs, Safety, Self Care, Shopping, Transportation Supervision at Home due to: Impaired cognition, Decreased safety awareness Recommended Discharge Equipment: To Be Determined ASSESSMENT Response to Therapy Interventions: Cognitive Deficits, Good Participation in Activities, Low Activity Tolerance, Needs Frequent Redirection or Reinstruction, Requires Additional Time to Complete Activities Patient tolerated session fairly well. Improvement in standing tolerance and functional tasks however limited by dizziness/feeling of lightheadedness. Decreased safety and high risk for falling PRECAUTIONS Bed/Chair Alarm, Fall Risk CURRENT HOSPITAL COURSE Pt admitted 04/12 for hyperglycemia Relevant Past Medical History: DM, hypothyroidism, dementia HOME LIVING Patient Lives With: Self/Alone Assistance Available: PRN, Other: See Comment Comments: family Entry To Home: Other: See Comment (pt unable to recall) Number Of Stairs To Bed/Bath: pt unable to recall Tub/Shower Type: tub/shower with shower chair and GBs Laundry: pt reports systems are "outside the main door" and that she completes Equipment Owned: Cane, Walker- Wheeled, Grab Bars- Shower, Shower Chair PRIOR FUNCTIONAL LEVEL Poor Historian, Within Functional Limits, Required Assistance Assistance Required With: Finances, Shopping, Transportation Pt very questionable historian. Pt reports IND with ADLs, ambulation with the use of a FWW. Pt reports that she has had 3 falls over the past couple of months. Does not drive. Reports family gets her groceries. Reports she cooks, does cleaning, mgms medications. Baseline Cognition: Oriented to self, Oriented to place, Forgetful SUBJECTIVE Patient agreeable to OT treatment. COGNITION Communication Deficits: Receptive Deficits, Expressive Deficits Orientation Deficits: Confused, Not oriented to Situation Responsiveness: Awake Follows Commands: 2-step Commands, Cueing Needed Cueing to Follow Commands: Minimum Attention Deficits: Distractible, Divided Memory Deficits: Short Term, Recall of Medical/Personal History, Recall of Recent Events Executive Function Deficits: Sequencing, Judgement, Insight to Deficits, Problem Solving, Motor Planning, Safety Awareness Clock Draw Test: 0-Abnormal (04/13/24) Word Recall: 1-recalled word (04/13/24) Mini Cog Score: 1 (04/13/24) THERAPY DIAGNOSIS Decreased activities of daily living (ADL), Reduced mobility-other, Muscle Weakness (generalized) TREATMENT INTERVENTIONS Self Detention Management (06565) Timed Code Treatment (minutes): 34 Skilled Treatment Time (minutes): 34 TRAINING AND EDUCATION PROVIDED Activity Adaptation/Compensat ory Strategies, Assistive Device Use, Bed Mobility, Benefits of In-Hospital Mobility, Cognitive Skills, Command Following, Discharge Planning, Energy Conservation, Expected Functional Level, Functional Mobility Involving ADLs, Grooming Tasks, Lower Extremity Dressing, Memory/Attention, Orientation, Positioning, Precautions/Restrict ions, Role of Occupational Therapy, Safety/Judgment, Sitting Balance to Improve [place] with ADLs/Self-Care, Standing Balance to Improve [place] with ADLs/Self-Care, Transfer - Bed to Chair, Transfer - Sit to Stand THERAPEUTIC SKILLS USED Activity Dosing, Assessment of Tolerance Including Vitals Response to Activity, Cues for Sequencing/Proper Technique for Activity, Cuing Tactile, Cuing Verbal, Cuing Visual, Mirroring, Movement Facilitation, Physical Assist (more content not included)... Normal [facility] Basic metabolic 2000 panelon 04-13-2024 Anion gap [Moles/Vol] 10 mmol/L Normal 5-16 [facility] Comment on above: Order Comment: Speci men Type: BLOOD SPECIMENOrdering Facility: [facility] Address: [address] [place] [address] Performed By: #### 2 4321-2 ####[facility] [id number] [place] [address] [place] Calcium [Mass/Vol] 9.8 mg/dL Normal 8.5-10.5 [facility] Comment on above: Order Comment: Speci men Type: BLOOD SPECIMENOrdering Facility: [facility] Address: [address] [place] [address] Performed By: #### 2 4321-2 ####[facility] [id number] [place] [address] [place] Chloride [Moles/Vol] 94 mmol/L Low 98-107 [facility] Comment on above: Order Comment: Speci men Type: BLOOD SPECIMENOrdering Facility: [facility] Address: [address] [place] [address] Performed By: #### 2 4321-2 ####[facility]ORY[facility] [id number] [place] [address] [place] CO2 [Moles/Vol] 31 mmol/L Normal 21-32 [facility] Comment on above: Order Comment: Speci men Type: BLOOD SPECIMENOrdering Facility: [facility] Address: [address] [place] [address] Performed By: #### 2 4321-2 ####[facility]ORY[facility] [id number] [place] [address] [place] Creatinine [Mass/Vol] 0.77 mg/dL Normal 0.51-0.95 [facility] Comment on above: Order Comment: Sanjuana cazares Type: BLOOD SPECIMENOrdering Facility: [facility] Address: [address] [place] [address] Result Comment: Jacqueline ents receiving either N-Acetylcysteine (NAC) or Metamizole prior to venipuncture, may have falsely depressed results. Performed By: #### 2 4321-2 ####[facility]ORYCLIA [id number] [place] [address] [place] Creatinine and Glomerular filtration rate.predicted panel (S/P/Bld) 79 mL/min/1.73m??? Normal >=60 [facility] Comment on above: Order Comment: Sanjuana cazares Type: BLOOD SPECIMENOrdering Facility: [facility] Address: [address] [place] [address] Result Comment: Paula mated Glomerular Filtration Rate (eGFR) is calculated using the 2020 CKD-EPI creatinine equation. This equation utilizes serum creatinine, sex, and age as parameters. The creatinine assay has traceable calibration to isotope dilution-mass spectrometry. Refer to KDIGO guidelines for clinical interpretation. In patients with unstable renal function, e.g. those with acute kidney injury, the eGFR may not accurately reflect actual GFR. Performed By: #### 2 4321-2 ####[facility] LABORATORYCLIA [id number] [place] [address] [place] Glucose [Mass/Vol] 288 mg/dL High 70-100 [facility] Comment on above: Order Comment: Sanjuana cazares Type: BLOOD SPECIMENOrdering Facility: [facility] Address: [address] [place] [address] Result Comment: The [place] [employer] (ADA) provides guidance for cutoff values for fasting glucose and random glucose. The ADA defines fasting as no caloric intake for at least 8 hours. Fasting plasma glucose results between 100 to 125 mg/dL indicate increased risk for diabetes (prediabetes). Fasting plasma glucose results greater than or equal to 126 mg/dL meet the criteria for diagnosis of diabetes. In the absence of unequivocal hyperglycemia, results should be confirmed by repeat testing. In a patient with classic symptoms of hyperglycemia or hyperglycemic crisis, random plasma glucose results greater than or equal to 200 mg/dL meet the criteria for diagnosis of diabetes. Reference: Standards of Medical Care in Diabetes 2016, [place] [employer]. Diabetes Care. 2016.39(Suppl 1). Results may be falsely elevated after the administration of Sulfapyridine. Results may be falsely depressed after the administration of Sulfasalazine. Performed By: #### 2 4321-2 ####[facility] LABORATORYCLIA [id number] [place] [id number] [place] [facility] Potassium [Moles/Vol] 3.4 mmol/L Low 3.5-5.1 [facility] Comment on above: Order Comment: Speci men Type: BLOOD SPECIMENOrdering Facility: [facility] Address: [address] [place] [address] Performed By: #### 2 4321-2 ####[facility] LABORATORYCLIA [id number] [address] Sodium [Moles/Vol] 135 mmol/L Low 136-145 [facility] Comment on above: Order Comment: Speci men Type: BLOOD SPECIMENOrdering Facility: [facility] Address: [address] [place] [address] Performed By: #### 2 4321-2 ####[facility] LABORATORYCLIA [id number] [address] Urea nitrogen [Mass/Vol] 15 mg/dL Normal 7-26 [facility] Comment on above: Order Comment: Anahii men Type: BLOOD SPECIMENOrdering Facility: [facility] Address: [address] [place] [address] Performed By: #### 2 4321-2 ####[facility] LABORATORYCLIA [id number] [place] [id number] [facility] THERAPY NTon 04-13-2024 THERAPY NT HNO ID: [id number] Author: JONEL KELLEY OTR/Janeen Service: ? Author Type: Occupational Therapist Type: Therapy (PT/OT/Speech/Resp) Filed: 04/13/2024 13:18 Note Text: Occupational Therapy Evaluation Summary SERVICE DATE: 04/13/2024 SERVICE TIME: 1136 to 1212 ROOM: [id number] OT 6 Clicks Score: 17 DISCHARGE RECOMMENDATIONS Subacute/SNF Recommended Discharge Disposition Comments: Pt lives alone and is currently requiring up to Mod A for self-care and Min A for transfers and mobility. High fall risk and not safe for home going. Limited by severe cognitive deficits and balance deficits. Recommended Discharge Disposition Due to: Functional deficits requiring ongoing therapy service prior to discharge home., ADL impairment, Cognitive deficits new/worsened, Functional status decline, Requires multiple therapy disciplines Anticipated Discharge Needs: Physical Assist at Home, Supervision at Home Physical Assist at Home for: Finances, Ambulation, Cleaning, Laundry, Meals, Medication Management, Stairs, Safety, Self Care, Shopping, Transportation Supervision at Home due to: Impaired cognition, Decreased safety awareness Recommended Discharge Equipment: To Be Determined ASSESSMENT Response to Therapy Interventions: Cognitive Deficits, Good Participation in Activities, Low Activity Tolerance, Needs Frequent Redirection or Reinstruction, Requires Additional Time to Complete Activities Pt tolerated OT session fairly. Limited by severe cognitive deficits (scored 1/5 on Mini cog), balance deficits and decreased activity tolerance. Pt is requiring increased mod cueing to complete all activities and Sup A-Mod A for ADLs. Pt would benefit from continued OT services. PRECAUTIONS Bed/Chair Alarm, Fall Risk CURRENT HOSPITAL COURSE Pt admitted 04/12 for hyperglycemia Relevant Past Medical History: DM, hypothyroidism, dementia HOME LIVING Patient Lives With: Self/Alone Assistance Available: PRN, Other: See Comment Comments: family Entry To Home: Other: See Comment (pt unable to recall) Number Of Stairs To Bed/Bath: pt unable to recall Tub/Shower Type: tub/shower with shower chair and GBs Laundry: pt reports systems are "outside the main door" and that she completes Equipment Owned: Cane, Walker- Wheeled, Grab Bars- Shower, Shower Chair PRIOR FUNCTIONAL LEVEL Poor Historian, Within Functional Limits, Required Assistance Assistance Required With: Finances, Shopping, Transportation Pt very questionable historian. Pt reports IND with ADLs, ambulation with the use of a FWW. Pt reports that she has had 3 falls over the past couple of months. Does not drive. Reports family gets her groceries. Reports she cooks, does cleaning, mgms medications. Baseline Cognition: Oriented to self, Oriented to place, Forgetful SUBJECTIVE pt agreeable to OT eval COGNITION Communication Deficits: Receptive Deficits, Expressive Deficits Orientation Deficits: Confused, Not oriented to Time, Not oriented to Situation, Other: See Comment (did not know month, date, day of week or year) Responsiveness: Awake Follows Commands: 2-step Commands, Cueing Needed Cueing to Follow Commands: Moderate Attention Deficits: Distractible, Divided, Redirected with Cues Memory Deficits: Short Term, Recall of Medical/Personal History, Recall of Recent Events Executive Function Deficits: Safety Awareness, Motor Planning, Problem Solving, Insight to Deficits, Judgement, Sequencing Clock Draw Test: 0-Abnormal (04/13/24) Word Recall: 1-recalled word (04/13/24) Mini Cog Score: 1 (04/13/24) THERAPY DIAGNOSIS Decreased activities of daily living (ADL), Reduced mobility-other, Muscle Weakness (generalized) TREATMENT INTERVENTIONS Evaluation, Self Detention Management (07509) Timed Code Treatment (minutes): 18 Skilled Treatment Time (minutes): 33 TRAINING AND EDUCATION PROVIDED Activity Adaptation/Compensat ory Strategies, Assistive Device Use, Bed Mobility, Benefits of In-Hospital Mobility, Cognitive Skills, Command Following, Discharge Planning, Energy Conservation, Expected Functional Level, Functional Mobility Involving ADLs, Grooming Tasks, Lower Extremity Dressing, Memory/Attention, Orientation, Positioning, Precautions/Restrict ions, Role of Occupational Therapy, Safety/Judgment, Sitting Balance to Improve [place] with ADLs/Self-Care, Standing Balance to Improve [place] with ADLs/Self-Care, Transfer - Bed to Chair, Transfer - Sit to Stand THERAPEUTIC SKILLS USED Activity Dosing, Assessment of Tolerance Including Vitals Response to Activity, Cues for Sequencing/Proper Technique for Activity, Cuing Tactile, Cuing Verbal, Cuing Visual, Mirroring, Movement Facilitation, Physical Assist, Repetitive Task Learning, Task Analysis Learning FUNCTIONAL STATUS Activities of Daily Living Assist Level Additional Information Feeding Set Up Grooming Minimal Assistance, Additional Information Min A fo (more content not included)... 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 Would need to be Mod I to return home safely AND is currently displaying decline in function below her baseline. 5 time uqh-sl-drbcn score also indicating fall risk. Recommended Discharge Disposition Due to: Functional deficits requiring ongoing therapy service prior to discharge home. Recommended Discharge Equipment: No equipment needs anticipated ASSESSMENT Response to Therapy Interventions: Cognitive Deficits, Good Participation in Activities, Low Activity Tolerance Pt is a poor historian and there is cause for concern for her to return back home due to memory deficits and decreased endurance with ambulation AND ability to complete basic household mobility/ADLs safely. Pt displays decreased balance while ambulating requiring hands-on assistance. Pt completed a 5x STS which took her 23 seconds to complete displaying an increased risk for falls.Due to patient being a poor historian, impaired safety awareness, hands-on assistance, decreased balance, no adequate support and decreased endurance with ambulation: recommend SNF. Pt is agreeable to the discharge plan. PRECAUTIONS Bed/Chair Alarm, Fall Risk CURRENT HOSPITAL COURSE Pt admitted 04/12 for hyperglycemia, inability to care for herself Relevant Past Medical History: DM, hypothyroidism, dementia HOME LIVING Patient Lives With: Self/Alone Assistance Available: None Entry To Home: Other: See Comment (unable to recall) Number Of Stairs To Bed/Bath: unable to report Tub/Shower Type: tub shower with grab bars and shower chair Laundry: Pt. completes, unable to provide set-up Equipment Owned: Cane, Walker- Wheeled PRIOR FUNCTIONAL LEVEL Within Functional Limits, History of Falls Poor historian, patient reports IND with ambulation with the use of a FWW, IND ADLs. Pt reports that she has had 4 falls over the past couple of months. SUBJECTIVE Pt is a poor historian and is AANDO x 2 (self, location). Pt was unable to give a clear explanation of home set up and was confused by some of the questions. Pt was agreeable to therapy. THERAPY DIAGNOSIS Reduced mobility-other, Muscle Weakness (generalized), Unsteadiness on feet TREATMENT INTERVENTIONS Evaluation, Therapeutic Activity (21440) Timed Code Treatment (minutes): 19 Skilled Treatment Time (minutes): 34 TRAINING AND EDUCATION PROVIDED Anatomy and Impact on Deficits, Bed Mobility, Benefits of In-Hospital Mobility, Discharge Planning, Positioning, Role of Physical Therapy, Standing Balance THERAPEUTIC SKILLS USED Activity Dosing, Cuing Verbal, Teach-Back for Education FUNCTIONAL STATUS Bed Mobility Rolling: Additional Information, Supervision Verbal cues given for rolling Supine To Sit: Stand By Assistance, Additional Information Used the rail of the bed and arm of the chair. V/c needed Scooting: Supervision, Additional Information Required v/c Transfers Sit To Stand: Minimal Assistance, Additional Information Hand-held assistance + v/c needed for sequencing Stand To Sit: Minimal Assistance Bed to Chair Gait Minimal Assistance, Additional Information v/c for redirecting walker, walker proximity. Limited endurance, fatigues easily reporting LE weakness. Displays fear of falling, decreased gait speed. Gait Device: Wheeled Walker General Deviations/Observati ons: Catia decreased, Flexed trunk posture, Narrow Base of Support, Step length decreased Gait Distance (feet): 30' Stairs Additional Information Did not complete due to fatigue GOALS Patient will demonstrate progress to optimize functional mobility, maximize activity tolerance and endurance to maximize function upon discharge. Transfer Supine to/from Sit with: Modified Independent Transfer Sit to/from Stand with: Modified Independent Ambulate with: Modified Independent Distance: 50' Device: Wheeled Walker Ambulate Up and Down Steps with: Modified Independent Number of Steps: 5 Device: Rail Rehab Potential: Fair PLAN PT Frequency: 3 Times Per Week Treatment Interventions: Education, Strengthening, Functional Mobility Training, Balance Training Plan for Next Visit: Bed Mobility, Fall Prevention, Gait Training, Sit to Stand Transfers, Standing Balance, Standing Tolerance, Stair Training SIGNATURE: Angely Herbert, PT PATIENT NAME: Marcia Vernon (more content not included)... Normal [facility] B-HYDROXYBUTYRATEon 04-12-20 24 Beta hydroxybutyrate [Moles/Vol] 4.01 mmol/L High 0.02-0.27 [facility] Comment on above: Order Comment: Speci men Type: BLOOD SPECIMENOrdering Facility: [facility] Address: [address] [place] [address] Result Comment: Karolineo madhu ketone levels will vary depending on several factors (for example, food intake, alcohol intake and conditions such as ketoacidosis). Patients should be fasting 12 hours prior to collection. Patient samples with high levels of M-Protein (i.e. Gammopathy) may affect the accuracy of this assay. Performed By: #### B [place], 62286-9, 77234-5 ####[facility] LABORATORYCLIA [id number] [address] [place] [facility] Bas Metab 2000 Pnl SerPlon 0 04-12-2024 Potassium [Moles/Vol] 4.0 mmol/L Normal 2.5-6.0 [facility] Comment on above: Order Comment: Speci men Type: BLOOD SPECIMENOrdering Facility: [facility] Address: [address] [place] [address] Performed By: #### B HB, 21718-1, 54801-4 ####[facility] LABORATORYCLIA [id number] [address] [place] [facility] Order Comment: Speci men Type: VENOUS BLOOD SPECIMENOrdering Facility: [facility] Address: [address] [place] [address] Performed By: #### 2 4344-4 ####[facility] THERAPYCLIA [id number] [address] LABORATORYCLIA [id number] [address] [place] Basic metabolic 2000 panelon 04-12-2024 Anion gap [Moles/Vol] 11 mmol/L Normal 5-16 [facility] Comment on above: Order Comment: Speci men Type: BLOOD SPECIMENOrdering Facility: [facility] Address: [address] [place] [address] Performed By: #### B HB, 11832-0, 98800-0 ####[facility] LABORATORYCLIA [id number] [address] [place] Calcium [Mass/Vol] 10.0 mg/dL Normal 8.5-10.5 [facility] Comment on above: Order Comment: Speci men Type: BLOOD SPECIMENOrdering Facility: [facility] Address: [address] [place] [address] Performed By: #### B HB, 87822-0, 19066-1 ####[facility] LABORATORYCLIA [id number] [place] [address] [place] Chloride [Moles/Vol] 90 mmol/L Low 98-107 [facility] Comment on above: Order Comment: Speci men Type: BLOOD SPECIMENOrdering Facility: [facility] Address: [address] [place] [address] Performed By: #### B HB, 59057-0, 42072-1 ####[facility] LABORATORYCLIA [id number] [place] [address] [place] CO2 [Moles/Vol] 31 mmol/L Normal 21-32 [facility] Comment on above: Order Comment: Speci men Type: BLOOD SPECIMENOrdering Facility: [facility] Address: [address] [place] [address] Performed By: #### B HB, 28160-9, 70468-4 ####[facility] LABORATORYCLIA [id number] [place] [address] [place] [facility] Creatinine [Mass/Vol] 0.72 mg/dL Normal 0.51-0.95 [facility] Comment on above: Order Comment: Speci men Type: BLOOD SPECIMENOrdering Facility: [facility] Address: [address] [place] [address] Result Comment: Jacqueline ents receiving either N-Acetylcysteine (NAC) or Metamizole prior to venipuncture, may have falsely depressed results. Performed By: #### B HB, 73467-0, 62778-8 ####[facility] LABORATORYCLIA [id number] [place] [address] [place] Creatinine and Glomerular filtration rate.predicted panel (S/P/Bld) 86 mL/min/1.73m??? Normal >=60 [facility] Comment on above: Order Comment: Speci men Type: BLOOD SPECIMENOrdering Facility: [facility] Address: [address] [place] [address] Result Comment: Paula mated Glomerular Filtration Rate (eGFR) is calculated using the 2020 CKD-EPI creatinine equation. This equation utilizes serum creatinine, sex, and age as parameters. The creatinine assay has traceable calibration to isotope dilution-mass spectrometry. Refer to KDIGO guidelines for clinical interpretation. In patients with unstable renal function, e.g. those with acute kidney injury, the eGFR may not accurately reflect actual GFR. Performed By: #### B HB, 81264-6, 95932-1 ####[facility] LABORATORYCLIA [id number] [place] [id number] [place] Glucose [Mass/Vol] 395 mg/dL High 70-100 [facility] Comment on above: Order Comment: Sanjuana cazares Type: BLOOD SPECIMENOrdering Facility: [facility] Address: [address] [place] [address] Result Comment: The [place] Diabetes Association (ADA) provides guidance for cutoff values for fasting glucose and random glucose. The ADA defines fasting as no caloric intake for at least 8 hours. Fasting plasma glucose results between 100 to 125 mg/dL indicate increased risk for diabetes (prediabetes). Fasting plasma glucose results greater than or equal to 126 mg/dL meet the criteria for diagnosis of diabetes. In the absence of unequivocal hyperglycemia, results should be confirmed by repeat testing. In a patient with classic symptoms of hyperglycemia or hyperglycemic crisis, random plasma glucose results greater than or equal to 200 mg/dL meet the criteria for diagnosis of diabetes. Reference: Standards of Medical Care in Diabetes 2016, [place] [employer]. Diabetes Care. 2016.39(Suppl 1). Results may be falsely elevated after the administration of Sulfapyridine. Results may be falsely depressed after the administration of Sulfasalazine. Performed By: #### B [place], 82144-2, 55564-4 ####[facility] LABORATORYCLIA [id number] [place] [id number] [place] Sodium [Moles/Vol] 132 mmol/L Low 136-145 [facility] Comment on above: Order Comment: Sanjuana cazares Type: BLOOD SPECIMENOrdering Facility: [facility] Address: [address] [place] [address] Performed By: #### B HB, 10961-7, 32682-7 ####[facility] LABORATORYCLIA [id number] [place] [address] [place] Urea nitrogen [Mass/Vol] 16 mg/dL Normal - [facility] Comment on above: Order Comment: Speci men Type: BLOOD SPECIMENOrdering Facility: [facility] Address: [address] [place] [address] Performed By: #### B HB, 52182-0, 78112-0 ####[facility] LABORATORYCLIA [id number] [place] [address] [place] CBC W Auto Differential pane l (Bld)on 04-12-2024 Basophils (Bld) [#/Vol] 10*3/uL Normal <0.11 [facility] Comment on above: Order Comment: Speci men Type: BLOOD SPECIMENOrdering Facility: [facility] Address: [address] [place] [address] Performed By: #### 5 5454-3 ####[facility] LABCLIA [id number] [address] [place]#### 21303-9 ####[facility] LABORATORYCLIA [id number] [address] [place] Basophils/100 WBC (Bld) 0.2 % Normal [facility] Comment on above: Order Comment: Speci men Type: BLOOD SPECIMENOrdering Facility: [facility] Address: [address] [place] [address] Performed By: #### 5 5454-3 ####[facility] LABCLIA [id number] [place] [address] [place]#### 09225-4 ####[facility] LABORATORYCLIA [id number] [place] [address] [place] Differential cell count method Nom (Bld) Auto Normal [facility] Comment on above: Order Comment: Speci men Type: BLOOD SPECIMENOrdering Facility: [facility] Address: [address] [place] [address] Performed By: #### 5 5454-3 ####[facility] LABCLIA [id number] [place] [address] [place]#### 20266-8 ####[facility] LABORATORYCLIA [id number] [place] [address] [place] Eosinophils (Bld) [#/Vol] 10*3/uL Normal <0.46 [facility] Comment on above: Order Comment: Speci men Type: BLOOD SPECIMENOrdering Facility: [facility] Address: [address] [place] [address] Performed By: #### 5 5454-3 ####[facility] LABCLIA [id number] [place] [address] [place]#### 61562-9 ####[facility] LABORATORYCLIA [id number] [place] [address] [place] Eosinophils/100 WBC (Bld) 0.2 % Normal [facility] Comment on above: Order Comment: Speci men Type: BLOOD SPECIMENOrdering Facility: [facility] Address: [address] [place] [address] Performed By: #### 5 5454-3 ####[facility] LABCLIA [id number] [place] [address] [place]#### 25982-7 ####[facility] LABORATORYCLIA [id number] [place] [address] [place] Erythrocyte distribution width (RBC) [Ratio] 14.6 % Normal 11.5-15.0 [facility] Comment on above: Order Comment: Speci men Type: BLOOD SPECIMENOrdering Facility: [facility] Address: [address] [place] [address] Performed By: #### 5 5454-3 ####[facility] LABCLIA [id number] [place] [address] [place]#### 63225-8 ####[facility] LABORATORYCLIA [id number] [place] [address] [place] Hematocrit (Bld) [Volume fraction] 36.6 % Normal 36.0-46.0 [facility] Comment on above: Order Comment: Speci men Type: BLOOD SPECIMENOrdering Facility: [facility] Address: [address] [place] [address] Performed By: #### 5 5454-3 ####[facility] LABCLIA [id number] [place] [address] [place]#### 47708-4 ####[facility] LABORATORYCLIA [id number] [place] [address] [place] Hemoglobin (Bld) [Mass/Vol] 12.3 g/dL Normal 11.5-15.5 [facility] Comment on above: Order Comment: Speci men Type: BLOOD SPECIMENOrdering Facility: [facility] Address: [address] [place] [address] Performed By: #### 5 5454-3 ####[facility] LABCLIA [id number] [place] [address] [place]#### 36164-7 ####[facility] LABORATORYCLIA [id number] [place] [address] [place] Immature granulocytes (Bld) [#/Vol] 10*3/uL Normal <0.10 [facility] Comment on above: Order Comment: Speci men Type: BLOOD SPECIMENOrdering Facility: [facility] Address: [address] [place] [address] Performed By: #### 5 5454-3 ####[facility] [facility] LABCLIA [id number] [place] [address] [place]#### 65070-1 ####[facility] LABORATORYCLIA [id number] [place] [address] [place] Immature granulocytes/100 WBC (Bld) 0.5 % Normal [facility] Comment on above: Order Comment: Speci men Type: BLOOD SPECIMENOrdering Facility: [facility] Address: [address] [place] [address] Performed By: #### 5 5454-3 ####[facility] LABCLIA [id number] [place] [address] [place]#### 68407-9 ####[facility] LABORATORYCLIA [id number] [place] [address] [place] Lymphocytes (Bld) [#/Vol] 0.72 10*3/uL Low 1.00-4.00 [facility] Comment on above: Order Comment: Speci men Type: BLOOD SPECIMENOrdering Facility: [facility] Address: [address] [place] [address] Performed By: #### 5 5454-3 ####[facility] LABCLIA [id number] [place] [address] [place]#### 57446-3 ####[facility] LABORATORYCLIA [id number] [place] [address] [place] Lymphocytes/100 WBC (Bld) 16.4 % Normal [facility] Comment on above: Order Comment: Speci men Type: BLOOD SPECIMENOrdering Facility: [facility] Address: [address] [place] [address] Performed By: #### 5 5454-3 ####[facility] LABCLIA [id number] [place] [address] [place]#### 06661-4 ####[facility] LABORATORYCLIA [id number] [place] [address] [place] MCH (RBC) [Entitic mass] 31.0 pg Normal 26.0-34.0 [facility] Comment on above: Order Comment: Speci men Type: BLOOD SPECIMENOrdering Facility: [facility] Address: [address] [place] [address] Performed By: #### 5 5454-3 ####[facility] LABCLIA [id number] [place] [address] [place]#### 04151-5 ####[facility] LABORATORYCLIA [id number] [place] [address] [place] MCHC (RBC) [Mass/Vol] 33.6 g/dL Normal 30.5-36.0 [facility] Comment on above: Order Comment: Speci men Type: BLOOD SPECIMENOrdering Facility: [facility] Address: [address] [place] [address] Performed By: #### 5 5454-3 ####[facility] LABCLIA [id number] [place] [address] [place]#### 83854-1 ####[facility] LABORATORYCLIA [id number] [place] [address] [place] MCV (RBC) [Entitic vol] 92.2 fL Normal 80.0-100.0 [facility] Comment on above: Order Comment: Speci men Type: BLOOD SPECIMENOrdering Facility: [facility] Address: [address] [place] [address] Performed By: #### 5 5454-3 ####[facility] LABCLIA [id number] [place] [address] [place]#### 48894-4 ####[facility] LABORATORYCLIA [id number] [place] [address] [place] Monocytes (Bld) [#/Vol] 0.25 10*3/uL Normal <0.87 [facility] Comment on above: Order Comment: Speci men Type: BLOOD SPECIMENOrdering Facility: [facility] Address: [address] [place] [address] Performed By: #### 5 5454-3 ####[facility] LABCLIA [id number] [place] [address] [place]#### 63167-7 ####[facility] LABORATORYCLIA [id number] [place] [id number] [place] Monocytes/100 WBC (Bld) 5.7 % Normal [facility] Comment on above: Order Comment: Speci men Type: BLOOD SPECIMENOrdering Facility: [facility] Address: [address] [place] [address] Performed By: #### 5 5454-3 ####[facility] LABCLIA [id number] [place] [address] [place]#### 96108-5 ####[facility] LABORATORYCLIA [id number] [place] [address] [place] Neutrophils (Bld) [#/Vol] 3.38 10*3/uL Normal 1.45-7.50 [facility] Comment on above: Order Comment: Speci men Type: BLOOD SPECIMENOrdering Facility: [facility] Address: [address] [place] [address] Performed By: #### 5 5454-3 ####[facility] LABCLIA [id number] [address] [place]#### 50946-9 ####[facility] LABORATORYCLIA [id number] [place] [id number] [place] Neutrophils/100 WBC (Bld) 77.0 % Normal [facility] Comment on above: Order Comment: Speci men Type: BLOOD SPECIMENOrdering Facility: [facility] Address: [address] [place] [address] Performed By: #### 5 5454-3 ####[facility] LABCLIA [id number] [place] [address] [place]#### 48837-1 ####[facility] LABORATORYCLIA [id number] [place] [id number] [place] Nucleated RBC (Bld) [#/Vol] 10*3/uL Normal <0.01 [facility] Comment on above: Order Comment: Speci men Type: BLOOD SPECIMENOrdering Facility: [facility] Address: [address] [place] [address] Performed By: #### 5 5454-3 ####[facility] LABCLIA [id number] [place] [address] [place]#### 21703-2 ####[facility] LABORATORYCLIA [id number] [place] [address] [place] Nucleated RBC/100 WBC (Bld) [Ratio] 0.0 /100 WBC Normal [facility] Comment on above: Order Comment: Speci men Type: BLOOD SPECIMENOrdering Facility: [facility] Address: [address] [place] [address] Performed By: #### 5 5454-3 ####[facility] LABCLIA [id number] [place] [address] [place]#### 98409-6 ####[facility] LABORATORYCLIA [id number] [place] [address] [place] Platelet mean volume (Bld) [Entitic vol] 9.9 fL Normal 9.0-12.7 [facility] Comment on above: Order Comment: Speci men Type: BLOOD SPECIMENOrdering Facility: [facility] Address: [address] [place] [address] Performed By: #### 5 5454-3 ####[facility] LABCLIA [id number] [place] [address] [place]#### 52215-7 ####[facility] LABORATORYCLIA [id number] [place] [id number] [place] Platelets (Bld) [#/Vol] 216 10*3/uL Normal 150-400 [facility] Comment on above: Order Comment: Speci men Type: BLOOD SPECIMENOrdering Facility: [facility] Address: [address] [place] [address] Result Comment: No c lot detected. Performed By: #### 5 5454-3 ####[facility] LABCLIA [id number] [address] [place]#### 63016-9 ####[facility] LABORATORYCLIA [id number] [place] [address] [place] RBC (Bld) [#/Vol] 3.97 10*6/uL Normal 3.90-5.20 [facility] Comment on above: Order Comment: Speci men Type: BLOOD SPECIMENOrdering Facility: [facility] Address: [address] [place] [address] Performed By: #### 5 5454-3 ####[facility] LABCLIA [id number] [address]#### 72276-9 ####[facility] LABORATORYCLIA [id number] [place] [address] [place] WBC (Bld) [#/Vol] 4.39 10*3/uL Normal 3.70-11.00 [facility] Comment on above: Order Comment: Speci men Type: BLOOD SPECIMENOrdering Facility: [facility] Address: [address] [place] [address] Performed By: #### 5 5454-3 ####[facility] LABCLIA [id number] [address]#### 50643-6 ####[facility] LABORATORYCLIA [id number] [place] [id number] [place] ED PROV NOTEon 04-12-2024 ED PROV NOTE HNO ID: [id number] Author: FANNY CAMPBELL MD Service: Emergency Medicine Author Type: Physician Type: ED Provider Notes Filed: 04/12/2024 17:39 Note Text: ED Provider Note Patient Name: Marcia Rooney : 1945 SERVICE DATE: 04/12/24 History Patient presents with: Weakness: Confusion, no taking her meds for her diabetes Marcia Rooney is a 78 year old female who presents with a chief complaint of abnormal blood sugar. The patient's past medical history is significant for diabetes mellitus and hypothyroidism. The patient's past surgical history is significant for appendectomy, cholecystectomy, and tonsillectomy. The patient's medications reviewed from the medication dispense history include insulin glargine, levothyroxine, midodrine, pioglitazone, potassium chloride, and venlafaxine. The patient's social history is significant for former tobacco use. The patient reports that she forgot to take her insulin this morning. She checked her blood sugar and it was abnormal. This prompted the visit here today. The patient is insulin-dependent diabetic. She resides at home alone. She states that her upstairs neighbor called the ambulance as she felt the patient was confused. She denies any fevers or chills. She denies chest pain or palpitations. She denies shortness breath or cough. She denies abdominal pain, nausea, vomiting. She denies diarrhea or constipation. Denies dysuria, hematuria, or increased urinary frequency. She denies polyuria or polydipsia. The patient denies any falls or injuries. History provided by: Patient and medical records reinforcement maker used: No PAST MEDICAL HISTORY Diagnosis Date Diabetes (HCC) No past surgical history on file. No family history on file. Social History Tobacco Use Smoking status: Former Current packs/day: 0.50 Types: Cigarettes Smokeless tobacco: Never Vaping Use Vaping status: Never Used Substance and Sexual Activity Alcohol use: Not Currently Drug use: Never Sexual activity: Not on file ALLERGIES No Known Allergies Review of Systems Review of Systems: Review of systems as per History of Present Illness. Physical Exam Vitals [04/12/24 1436] BP Pulse Temp Temp src Resp SpO2 Weight Height 142/65 66 36.8 ?C (98.3 ?F) Oral 16 95 % 87 kg (191 lb 12.8 oz) 1.702 m (5' 7") Physical Exam Physical Exam: Vital signs and nursing notes have been reviewed. General: The patient is well-developed, well-nourished, and in no acute distress. Head: The patient is normocephalic and atraumatic. Neck: The neck is supple with no JVD. Eyes: Ocular examination reveals the pupils to be equal, round, and reactive to light. Extraocular muscles are noted to be intact. Sclera are anicteric. Oropharynx: Examination of the oropharynx reveals mucous membranes to be moist with no erythema, exudates, or lesions. The uvula is midline. The airway is patent. Cardiovascular: Cardiovascular examination reveals a normal S1 and S2 with a regular rate and rhythm. There are no murmurs, gallops, or rubs. Pulmonary: Pulmonary examination reveals the breath sounds to be clear to auscultation bilaterally. There are no wheezes, rales, or rhonchi. Chest: Examination of the chest wall reveals no chest wall tenderness to palpation, no crepitus, or subcutaneous emphysema. Abdominal: Abdominal examination reveals the abdomen to be soft with positive bowel sounds. There is no guarding, rigidity, or rebound tenderness. This is a benign abdominal examination. Musculoskeletal: There is no cyanosis, clubbing, or edema of the extremities. There are no deformities of the extremities. Skin: The skin is warm and dry with no rashes or lesions. Neurologic: The patient is alert and oriented x3. Cranial nerves II through XII are grossly intact. There are no focal or lateralizing neurologic deficits appreciated. GCS is 15. The patient does demonstrate capacity for medical decision-making. Diagnostic Testing ED Labs Ordered and Reviewed COMPLETE BLOOD COUNT AND DIFFERENTIAL - Abnormal; Notable for the following components: Result Value Ref Range Abs Lymph 0.72 (*) 1.00 - 4.00 k/uL All other components within normal limits BASIC METABOLIC PANEL - Abnormal; Notable for the following components: Glucose 395 (*) 70 - 100 mg/dL Sodium 132 (*) 136 - 145 mmol/L Chloride 90 (*) 98 - 107 mmol/L All other components within normal limits HEPATIC FUNCTION PNL - Abnormal; Notable for the following components: Bilirubin, Total 1.5 (*) 0.2 - 1.0 mg/dL Alkaline Phosphatase 182 (*) 45 - 117 U/L ALT 11 (*) 13 - 61 U/L All other components within normal limits VENOUS BLOOD GASES - Abnormal; Notable for the following components: Carboxyhemoglobin, Venous 2.8 (*) 0.0 - 2.0 % Sodium, Whole Blood 133 (*) 136 - 144 mmol/L Glucose, Whole Blood 403 (*) 60 - 105 mg/dL All other components within normal limits B-HYDROXYBUTYRATE - Abnormal (more content not included)... Normal [facility] Gas and Carbon monoxide pane l (BldV)on 04-12-2024 Base excess Calc (BldV) [Moles/Vol] 1 mmol/L Normal 0-2 [facility] Comment on above: Order Comment: Speci men Type: VENOUS BLOOD SPECIMENOrdering Facility: [facility] Address: [address] [place] [address] Performed By: #### 2 4344-4 ####[facility] THERAPYCLIA [id number] [address] LABORATORYCLIA [id number] [address] Body temperature 98.6 [degF] Normal [facility] Comment on above: Order Comment: Speci men Type: VENOUS BLOOD SPECIMENOrdering Facility: [facility] Address: [address] [place] [address] Performed By: #### 2 4344-4 ####[facility] THERAPYCLIA [id number] [address] LABORATORYCLIA [id number] [address] Calcium.ionized (Bld) [Mass/Vol] 1.12 mmol/L Normal 1.08-1.30 [facility] Comment on above: Order Comment: Speci men Type: VENOUS BLOOD SPECIMENOrdering Facility: [facility] Address: [address] [place] [address] Performed By: #### 2 4344-4 ####[facility] THERAPYCLIA [id number] [address] LABORATORYCLIA [id number] [address] [facility] Carboxyhemoglobin (BldV) [Mass fraction] 2.8 % High 0.0-2.0 [facility] Comment on above: Order Comment: Speci men Type: VENOUS BLOOD SPECIMENOrdering Facility: [facility] Address: [address] [place] [address] Result Comment: Carb oxyhemoglobin Reference Range for Smokers: 2.0-8.0% Performed By: #### 2 4344-4 ####[facility] THERAPYCLIA [id number] [address] LABORATORYCLIA [id number] [address] CO2 (BldV) [Partial pressure] 48 mm[Hg] Normal 42-55 [facility] Comment on above: Order Comment: Speci men Type: VENOUS BLOOD SPECIMENOrdering Facility: [facility] Address: [address] [place] [address] Performed By: #### 2 4344-4 ####[facility] THERAPYCLIA [id number] [address] LABORATORYCLIA [id number] [place] [address] [place] Glucose [Mass/Vol] 403 mg/dL High 60-105 [facility] Comment on above: Order Comment: Speci men Type: VENOUS BLOOD SPECIMENOrdering Facility: [facility] Address: [address] [place] [address] Performed By: #### 2 4344-4 ####[facility] THERAPYCLIA [id number] [address] LABORATORYCLIA [id number] [place] [address] [place] HCO3 (Bld) [Moles/Vol] 27 mmol/L Normal 24-28 [facility] Comment on above: Order Comment: Speci men Type: VENOUS BLOOD SPECIMENOrdering Facility: [facility] Address: [address] [place] [address] Performed By: #### 2 4344-4 ####[facility] THERAPYCLIA [id number] [address] LABORATORYCLIA [id number] [place] [address] [place] Hemoglobin (Bld) [Mass/Vol] 12.8 g/dL Normal 11.5-15.5 [facility] Comment on above: Order Comment: Speci men Type: VENOUS BLOOD SPECIMENOrdering Facility: [facility] Address: [address] [place] [address] Performed By: #### 2 4344-4 ####[facility] THERAPYCLIA [id number] [address] LABORATORYCLIA [id number] [place] [address] [place] Lactate [Moles/Vol] 1.5 mmol/L Normal 0.5-2.2 [facility] Comment on above: Order Comment: Speci men Type: VENOUS BLOOD SPECIMENOrdering Facility: [facility] Address: [address] [place] [address] Performed By: #### 2 4344-4 ####[facility] THERAPYCLIA [id number] [address] LABORATORYCLIA [id number] [place] [address] [place] Methemoglobin (Bld) [Mass fraction] 0.1 % Normal 0.0-1.5 [facility] Comment on above: Order Comment: Speci men Type: VENOUS BLOOD SPECIMENOrdering Facility: [facility] Address: [address] [place] [address] Performed By: #### 2 4344-4 ####[facility] THERAPYCLIA [id number] [address] LABORATORYCLIA [id number] [address] [place] O2 THERAPY RA=Room Air Normal [facility] Comment on above: Order Comment: Speci men Type: VENOUS BLOOD SPECIMENOrdering Facility: [facility] Address: [address] [place], [place] [id number] Performed By: #### 2 4344-4 ####[facility] THERAPYCLIA [id number] [place] [id number] [facility] LABORATORYCLIA [id number] [address] [place] Oxygen (BldV) [Partial pressure] 42 mm[Hg] Normal 35-45 [facility] Comment on above: Order Comment: Speci men Type: VENOUS BLOOD SPECIMENOrdering Facility: [facility] Address: [address] [place] [address] Performed By: #### 2 4344-4 ####[facility] THERAPYCLIA [id number] [place] [id number] [facility] LABORATORYCLIA [id number] [address] [place] Oxyhemoglobin (BldV) [Mass fraction] 73 % Normal 4-98 [facility] Comment on above: Order Comment: Speci men Type: VENOUS BLOOD SPECIMENOrdering Facility: [facility] Address: [address] [place] [address] Performed By: #### 2 4344-4 ####[facility] THERAPYCLIA [id number] [address] LABORATORYCLIA [id number] [place] [address] [place] pH (BldV) 7.36 [pH] Normal 7.32-7.42 [facility] Comment on above: Order Comment: Speci men Type: VENOUS BLOOD SPECIMENOrdering Facility: [facility] Address: [address] [place] [address] Performed By: #### 2 4344-4 ####[facility] THERAP[facility]CLIA [id number] [address] LABORATORYCLIA [id number] [place] [address] [place] Sodium [Moles/Vol] 133 mmol/L Low 136-144 [facility] Comment on above: Order Comment: Speci men Type: VENOUS BLOOD SPECIMENOrdering Facility: [facility] Address: [address] [place], [place] [address] Performed By: #### 2 4344-4 ####[facility] THERAPYCLIA [id number] [place] [id number] [facility] LABORATORYCLIA [id number] [place] [address] [facility] HISTORY PHYSICALon HISTORY PHYSICAL HNO ID: [id number] Author: ISAIAH GARDNER MD Service: General Internal Medicine Author Type: Physician Type: H&P Filed: 04/12/2024 17:55 Note Text: DEPARTMENT OF HOSPITAL MEDICINE HISTORY AND PHYSICAL EXAM SERVICE DATE: 04/12/2024 SERVICE TIME: 5:49 PM Primary Care Physician: Isaiah Roldan DO Subjective CHIEF COMPLAINT: Inability to take care of self HPI: This is a 78 year old female with past medical history of diabetes, hypothyroidism, obesity presented with initial complaint of elevated blood glucose. History obtained from both patient and her niece who was available over the phone at bedside. They report that she has dementia and a decreased ability to take care of herself and her medical conditions. She lives alone and has been recently struggling with her diabetes medications. Today her neighbor called EMS as they believe the patient was confused. On evaluation in the ED, her blood glucose was noted to be elevated over 300. Rest of labs are unremarkable. Vitals are stable. Patient denies any headache, fever, chills, chest pain, shortness of breath, cough, dysuria. Will admit under obs for evaluation by PT and OT, case management consult for placement. PAST MEDICAL HISTORY Diagnosis Date Diabetes (HCC) No past surgical history on file. No family history on file. Social History Tobacco Use Smoking status: Former Current packs/day: 0.50 Types: Cigarettes Smokeless tobacco: Never Vaping Use Vaping status: Never Used Substance Use Topics Alcohol use: Not Currently Drug use: Never MEDICATIONS: Reviewed (Not in a hospital admission) ALLERGIES No Known Allergies REVIEW OF SYSTEM: PAIN ASSESSMENT: Negative for pain, history of chronic pain, or current treatment for a chronic pain condition. GENERAL: No weight loss, malaise or fevers RESPIRATORY: Negative for cough, hemoptysis, wheezing, COPD, dyspnea or shortness of breath CARDIOVASCULAR: Negative for chest pain, leg swelling, hypertension, CHF or palpitations GI: No nausea, vomiting, or diarrhea MUSCULOSKELETAL: Negative for joint pain or swelling, back pain or muscle pain SKIN: Negative for lesions, rash, and itching Objective PHYSICAL EXAM: BP 142/65 Pulse 66 Temp (Src) 98.3 (Oral) Resp 16 Ht 5' 7" (1.70m) Wt 191 lb 12.8 oz (87.0kg) SpO2 95% BMI 30.03 kg/(m2). O2 Therapy: Room Air Physical Exam Performed: GENERAL: Alert, no distress, cooperative SKIN: Skin color, texture, turgor normal. No rashes or lesions. LUNGS: Lungs clear to auscultation, Good diaphragmatic excursion CARDIAC: Normal S1 and S2; no rubs, murmurs, or gallops ABDOMEN: Abdomen soft, non-tender, BS normal, No masses or organomegaly EXTREMITIES: Extremities normal, no deformities, edema, clubbing or skin discoloration. Good capillary refill., No ulcers The remainder of the physical exam is noncontributory. Lines, Drains, and Airways Line Duration Peripheral 04/12/24 1443 Short Left Antecubital 20 Gauge <1 day Reviewed lines and needs to be continued: REASONS: Electrolyte replacement DATA: Diagnostic tests reviewed for today's visit: Most recent labs and imaging results. Assessment/Plan Hyperglycemia, present on admission Diabetes, type II Dementia Patient reporting inability manage her medical condition BG greater than 350 on admission Admit under observation A1c ordered Start insulin regimen with Lantus nightly and lispro 3 times daily AC plus sliding scale Diabetic diet ordered PT OT consulted Case management consulted for assistance with placement Chronic conditions: Depression Hypothyroidism Hypertension Obesity Resume home medications Lifestyle modifications recommended Medication and Non-Pharmacologic VTE Prophylaxis/Anticoag ulants 04/12/24 1747 activity - mobilize patient (ar,tx) VTE Prophylaxis: VTE prophylaxis appropriate Disposition: To be determined Plan of care discussed with: Provider, RN, Patient SIGNATURE: Isaiah Gardner MD PATIENT NAME: Marcia Rooney DATE: April 12, 2024 TIME: 5:49 PM etx [id number] [facility] HbA1c (Bld)on 04-12-2024 Average glucose Estimated from glycated hemoglobin (Bld) [Mass/Vol] 341 mg/dL [facility] Comment on above: Order Comment: Speci men Type: BLOOD SPECIMEN Ordering Facility: [facility] Address: [address] [place] [address] Result Comment: eAG: (Estimated average glucose) is a calculated value from HgbA1c and is cash application representative of the average blood glucose level in the last 2-3 month period. Performed By: #### 5 7021-8 #### [facility] CLIA [id number] [address] [place] [address] [place] HbA1c (Bld) [Mass fraction] 13.5 % High 4.3-5.6 [facility] Comment on above: Order Comment: Sanjuana cazares Type: BLOOD SPECIMEN Ordering Facility: [facility] Address: [address] [place] [address] Result Comment: Amer ican Diabetes Association guidelines indicate that patients with HgbA1c in the range 5.7-6.4% are at increased risk for development of diabetes, and intervention by lifestyle modification may be beneficial. HgbA1c greater or equal to 6.5% is considered diagnostic of diabetes. Performed By: #### 5 7021-8 #### [facility] CLIA [id number] [address] [place] [address] [place] Average glucose Estimated from glycated hemoglobin (Bld) [Mass/Vol] 352 mg/dL Normal [facility] Comment on above: Order Comment: Sanjuana cazares Type: BLOOD SPECIMENOrdering Facility: [facility] Address: [address] [place] [address] Result Comment: eAG: (Estimated average glucose) is a calculated value from HgbA1c and is cash application representative of the average blood glucose level in the last 2-3 month period. Performed By: #### 5 5454-3 ####[facility] [id number] [place] [address] [place]#### 56109-0 ####[facility] LABORATORYCLIA [id number] [address] [place] HbA1c (Bld) [Mass fraction] 13.9 % High 4.3-5.6 [facility] Comment on above: Order Comment: Sanjuana cazares Type: BLOOD SPECIMENOrdering Facility: [facility] Address: [address] [place] [address] Result Comment: Amer ican Diabetes Association guidelines indicate that patients with HgbA1c in the range 5.7-6.4% are at increased risk for development of diabetes, and intervention by lifestyle modification may be beneficial. HgbA1c greater or equal to 6.5% is considered diagnostic of diabetes. Performed By: #### 5 5454-3 ####[facility] LABCLIA [id number] [address] [place]#### 45479-3 ####[facility] LABORATORYCLIA [id number] [place] [address] [place] Hepatic function 2000 panelo n 04-12-2024 Albumin [Mass/Vol] 4.3 g/dL Normal 3.2-5.0 [facility] Comment on above: Order Comment: Sanjuana cazares Type: BLOOD SPECIMENOrdering Facility: [facility] Address: [address] [place] [address] Performed By: #### B [place], 78084-4, 93823-6 ####[facility] LABORATORYCLIA [id number] [place] [address] [place] ALP [Catalytic activity/Vol] 182 U/L High 45-117 [facility] Comment on above: Order Comment: Sanjuana cazares Type: BLOOD SPECIMENOrdering Facility: [facility] Address: [address] [place] [address] Performed By: #### B HB, 37143-3, 49130-2 ####[facility] LABORATORYCLIA [id number] [address] [place] ALT [Catalytic activity/Vol] 11 U/L Low 13-61 [facility] Comment on above: Order Comment: Anahii debora Type: BLOOD SPECIMENOrdering Facility: [facility] Address: [address] [place] [address] Result Comment: Resu lts may be falsely depressed after the administration of Sulfasalazine and/or Sulfapyridine. Performed By: #### B HB, 18711-4, 07141-8 ####[facility] LABORATORYCLIA [id number] [place] [address] [place] AST [Catalytic activity/Vol] 19 U/L Normal 8-34 [facility] Comment on above: Order Comment: Speci men Type: BLOOD SPECIMENOrdering Facility: [facility] Address: [address] [place] [address] Result Comment: Resu lts may be falsely depressed after the administration of Sulfasalazine and/or Sulfapyridine. Performed By: #### B HB, 96570-4, 40840-5 ####[facility] LABORATORYCLIA [id number] [place] [address] [place] Bilirubin [Mass/Vol] 1.5 mg/dL High 0.2-1.0 [facility] Comment on above: Order Comment: Speci men Type: BLOOD SPECIMENOrdering Facility: [facility] Address: [address] [place] [address] Performed By: #### B HB, 34656-8, 40523-2 ####[facility] LABORATORYCLIA [id number] [place] [address] [place] Bilirubin.conjugated [Mass/Vol] 0.4 mg/dL Normal 0.0-0.4 [facility] Comment on above: Order Comment: Speci men Type: BLOOD SPECIMENOrdering Facility: [facility] Address: [address] [place] [address] Performed By: #### B HB, 60426-4, 09713-2 ####[facility] LABORATORYCLIA [id number] [place] [address] [place] Protein [Mass/Vol] 7.1 g/dL Normal 6.0-8.5 [facility] Comment on above: Order Comment: Speci men Type: BLOOD SPECIMENOrdering Facility: [facility] Address: [address] [place] [address] Performed By: #### [place], 77130-6, 49510-8 ####[facility] LABORATORYCLIA [id number] [address] [place] Magnesium SerPl-mCncon 04-12 Magnesium [Mass/Vol] 1.8 mg/dL Normal 1.6-2.6 [facility] Comment on above: Order Comment: Speci men Type: BLOOD SPECIMENOrdering Facility: [facility] Address: [address] [place] [address] Performed By: #### 1 9123-9 ####[facility] LABORATORYCLIA [id number] [address] Urinalysis complete panel (U )on 04-12-2024 Bacteria LM.HPF (Urine sed) [#/Area] None Seen Normal None Seen [facility] Comment on above: Order Comment: Speci men Type: URINE SPECIMENOrdering Facility: [facility] Address: [address] [place] [address] Performed By: #### 2 4356-8 ####[facility] LABORATORYIA [id number] [address] Bilirubin Ql (U) Negative Normal Negative [facility] Comment on above: Order Comment: Speci men Type: URINE SPECIMENOrdering Facility: [facility] Address: [address] [place] [address] Performed By: #### 2 4356-8 ####[facility] LABORATORYIA [id number] [address] [place] Clarity (Unsp spec) Clear Normal Clear [facility] Comment on above: Order Comment: Speci men Type: URINE SPECIMENOrdering Facility: [facility] Address: [address] [place] [address] Performed By: #### 2 4356-8 ####[facility] LABORATORYIA [id number] [address] [place] Color (U) Yellow Normal Yellow [facility] Comment on above: Order Comment: Speci men Type: URINE SPECIMENOrdering Facility: [facility] Address: [address] [place] [address] Performed By: #### 2 4356-8 ####[facility] LABORATORYCLIA [id number] [place] [address] [place] Epithelial cells LM.HPF (Urine sed) [#/Area] None Seen Normal [facility] Comment on above: Order Comment: Speci men Type: URINE SPECIMENOrdering Facility: [facility] Address: [address] [place] [address] Performed By: #### 2 4356-8 ####[facility] LABORATORYCLIA [id number] [address] [place] Glucose Test strip (U) [Mass/Vol] 3+ Abnormal Negative [facility] Comment on above: Order Comment: Speci men Type: URINE SPECIMENOrdering Facility: [facility] Address: [address] [place] [address] Performed By: #### 2 4356-8 ####[facility] LABORATORYCLIA [id number] [place] [address] [place] Hemoglobin Ql (U) Negative Normal Negative [facility] Comment on above: Order Comment: Speci men Type: URINE SPECIMENOrdering Facility: [facility] Address: [address] [place] [address] Performed By: #### 2 4356-8 ####[facility] LABORATORYCLIA [id number] [place] [address] [place] Ketones Ql (U) 2+ Abnormal Negative [facility] Comment on above: Order Comment: Speci men Type: URINE SPECIMENOrdering Facility: [facility] Address: [address] [place] [address] Performed By: #### 2 4356-8 ####[facility] LABORATORYCLIA [id number] [address] [place] Leukocyte esterase Test strip Ql (U) Negative Normal Negative [facility] Comment on above: Order Comment: Speci men Type: URINE SPECIMENOrdering Facility: [facility] Address: [address] [place] [address] Performed By: #### 2 4356-8 ####[facility] LABORATORYCLIA [id number] [place] [address] [place] Nitrite Ql (U) Negative Normal Negative [facility] Comment on above: Order Comment: Speci men Type: URINE SPECIMENOrdering Facility: [facility] Address: [address] [place] [address] Performed By: #### 2 4356-8 ####[facility] LABORATORYIA [id number] [place] [address] [place] pH (U) 5.0 [pH] Normal 5.0-8.0 [facility] Comment on above: Order Comment: Speci men Type: URINE SPECIMENOrdering Facility: [facility] Address: [address] [place] [address] Performed By: #### 2 4356-8 ####[facility] [id number] [place] [address] [place] Protein (U) [Mass/Vol] Negative Normal Negative [facility] Comment on above: Order Comment: Speci men Type: URINE SPECIMENOrdering Facility: [facility] Address: [address] [place] [address] Performed By: #### 2 4356-8 ####[facility] LABORATORYIA [id number] [place] [address] [place] RBC LM.HPF (Urine sed) [#/Area] 0-3 /HPF Normal 0-3 /HPF [facility] Comment on above: Order Comment: Speci men Type: URINE SPECIMENOrdering Facility: [facility] Address: [address] [place] [address] Performed By: #### 2 4356-8 ####[facility] LABORATORYIA [id number] [place] [address] [place] Specific gravity (U) [Rel density] 1.027 Normal 1.005-1.030 [facility] Comment on above: Order Comment: Speci men Type: URINE SPECIMENOrdering Facility: [facility] Address: [address] [place] [address] Performed By: #### 2 4356-8 ####[facility] LABORATORYCLIA [id number] [address] [place] Urobilinogen Ql (U) Negative Normal Negative [facility] Comment on above: Order Comment: Speci men Type: URINE SPECIMENOrdering Facility: [facility] Address: [address] [place] [address] Performed By: #### 2 4356-8 ####[facility] LABORATORYCLIA [id number] [address] [place] WBC LM.HPF (Urine sed) [#/Area] 0-5 /HPF Normal 0-5 /HPF [facility] Comment on above: Order Comment: Speci men Type: URINE SPECIMENOrdering Facility: [facility] Address: [address] [place] [address] Performed By: #### 2 4356-8 ####[facility] LABORATORYCLIA [id number] [address] [place] XR Chest PA and Lateralon IMPRESSION: No acute radiographic abnormality. Fitness/Wellness Director: PSCB Transcribe Date/Time: Dec 16 2023 1:41P Dictated by : MOY INFANTE MD This examination was interpreted and the report reviewed and electronically signed by: MOY INFANTE MD on Dec 16 2023 1:41PM EST [facility] * * *Final Report* * * DATE OF EXAM: Dec 13 2023 1:52PM RMX [id number] - XR CHEST 2V FRONTAL/LAT / PROCEDURE REASON: Chest pain on breathing * * * * Physician Interpretation * * * * EXAMINATION: CHEST RADIOGRAPH (2 VIEW FRONTAL & LATERAL) CLINICAL HISTORY: Chest pain on breathing MQ: XC2_6 EXAM DATE/TIME: 12/13/2023 1:52 PM COMPARISON: No relevant prior studies available. RESULT: Lines, tubes, and devices: None. Lungs and pleura: No consolidation. No lung mass. No pleural effusion. No pneumothorax. Cardiomediastinal silhouette: Normal cardiomediastinal silhouette. Bones and soft tissues: Unremarkable. [facility] Provider, [facility] - 12/16/2023 * * *Final Report* * * DATE OF EXAM: Dec 13 2023 1:52PM RMX 5291 - XR CHEST 2V FRONTAL/LAT / PROCEDURE REASON: Chest pain on breathing * * * * Physician Interpretation * * * * EXAMINATION: CHEST RADIOGRAPH (2 VIEW FRONTAL & LATERAL) CLINICAL HISTORY: Chest pain on breathing MQ: XC2_6 EXAM DATE/TIME: 12/13/2023 1:52 PM COMPARISON: No relevant prior studies available. RESULT: Lines, tubes, and devices: None. Lungs and pleura: No consolidation. No lung mass. No pleural effusion. No pneumothorax. Cardiomediastinal silhouette: Normal cardiomediastinal silhouette. Bones and soft tissues: Unremarkable. IMPRESSION IMPRESSION: No acute radiographic abnormality. Fitness/Wellness Director: VLAD Transcribe Date/Time: Dec 16 2023 1:41P Dictated by : MOY INFANTE MD This examination was interpreted and the report reviewed and electronically signed by: MOY INFANTE MD on Dec 16 2023 1:41PM EST [facility] XR Chest PA and LateralOrder ed By: Ccroz Provider on 12-16-2023 [facility] CNOVon 12-13-2023 CNOV Office Visit (UCMMAS) MARCIA ROONEY ([id number]) 1945 F Date Time Provider Department 12/13/23 11:55 AM BHARGAV DOMINGUEZ JR [facility] During your visit today, we recorded the following information about you: Temperature Pulse Respiration Blood pressure 98.3 degrees 74/minute 18/minute 124/74 Weight 82.1 kg Bhargav Dominguez Jr., PERSONAL LINES ACCOUNT EXECUTIVE.DOCUMENTATION SPEC 12/13/2023 1:32 PM Signed Marcia Vernon dE is a 78 year old female who presents with Chest Pain (Left side of chest has a sharp pain with movement or touch./X 1 day) 70-year-old female presents today with complaint of left chest pain. She states symptoms began yesterday. She states pain occurs with deep breathing and movement. Patient denies any heartburn type symptoms. She also denies left arm pain and jaw pain. Patient is diabetic and has not taken any of her medications today. The history is provided by the patient. Chest Pain Pertinent negatives include no cough, no fever and no vomiting. PAST MEDICAL HISTORY Diagnosis Date Diabetes ([facility]) ACTIVE PROBLEM LIST Weakness Severe Protein-Calorie Malnutrition (Hcc) Current Outpatient Medications Medication Sig Dispense Refill ACCU-CHEK GUIDE TEST STRIPS test strip FREESTYLE MARIA EUGENIA 3 READER misc FREESTYLE MARIA EUGENIA 3 SENSOR yuniel midodrine (PROAMITINE) 5 mg tablet Take 1 tablet by mouth every 8 hours. 60 tablet 0 acetaminophen (TYLENOL) 500 mg tablet Take 2 tablets by mouth every 8 hours. 30 tablet 0 buPROPion XL (WELLBUTRIN XL) 150 mg 24 hr tablet Take 150 mg by mouth once daily. pioglitazone (ACTOS) 30 mg tablet Take 30 mg by mouth once daily. bumetanide (BUMEX) 1 mg tablet Take 1 mg by mouth once daily. TOUJEO SOLOSTAR U-300 INSULIN 300 unit/mL (1.5 mL) Inject 30 Units subcutaneously two times a day. levothyroxine (SYNTHROID) 150 mcg tablet Take 150 mcg by mouth daily before breakfast. venlafaxine ER (EFFEXOR XR) 37.5 mg 24 hr capsule Take 37.5 mg by mouth once daily. No current facility-administere d medications for this visit. Social History Tobacco Use Smoking status: Former Packs/day: .5 Types: Cigarettes Smokeless tobacco: Never Vaping Use Vaping Use: Never used Substance Use Topics Alcohol use: Not Currently Drug use: Never Alcohol Use: Not Currently Tobacco Use: 0.5 packs/day Types: Cigarettes History reviewed. No pertinent family history. Review of Systems Constitutional: Negative for fever. Respiratory: Negative for cough. Cardiovascular: Positive for chest pain. Gastrointestinal: Negative for vomiting. Neurological: States occasional loss of memory BP 124/74 Pulse 74 Temp 98.3 Resp 18 Wt 181 lb (82.1kg) SpO2 93% All socks rechecked, 94% on room air Physical Exam Vitals and nursing note reviewed. Constitutional: Appearance: Normal appearance. HENT: Head: Normocephalic and atraumatic. Eyes: Conjunctiva/sclera: Conjunctivae normal. Cardiovascular: Rate and Rhythm: Normal rate and regular rhythm. Heart sounds: Normal heart sounds, S1 normal and S2 normal. No friction rub. Pulmonary: Effort: Pulmonary effort is normal. Breath sounds: Normal breath sounds. Abdominal: General: Bowel sounds are normal. Palpations: Abdomen is soft. Musculoskeletal: Right lower leg: No edema. Left lower leg: No edema. Neurological: Mental Status: She is alert. EKG ordered: EKG showed a right bundle branch block with normal sinus rhythm. No acute changes as compared to EKG performed on September 04, 2023. Chest x-ray ordered: No acute process identified. 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 I am awaiting for radiologist report ASSESSMENT/PLAN: 1. Musculoskeletal chest pain - ICD9: 786.59, ICD10: R07.89 (primary diagnosis) 2. Chest pain on breathing - ICD9: 786.52, ICD10: R07.1 - XR CHEST 2V FRONTAL/LAT - ECG COMPLETE Patient presented today with a complaint of left upper chest pain that increased with breathing and movement. On examination vital signs were within normal limits. EKG showed no changes from previous EKG in August 2023, chest x-ray was unremarkable. There is tenderness in the left upper sternal region. Patient noted pain in the same area with movement of her upper extremities. At this time I feel patient is suffering from a musculoskeletal pain. At the end of the examination patient related that she did fall last week and had to crawl across the floor this may be have caused a muscle strain sprain of the area. I recommend she follow-up with the emergency room if symptoms continue for further evaluation as I cannot fully rule out other pathological processes at this time although I feel this is unlikely. Bhargav Dominguez Jr, PERSONAL LINES ACCOUNT EXECUTIVE.Brenton Summers LPN 12/13/2023 1:32 PM Signed EKG completed (more content not included)... Normal [facility] EKGon 12-13-2023 Atrial Rate 64 BPM [facility] Calculated P [place] -10 degrees [facility] Calculated R [place] 39 degrees [facility] Calculated T [place] 35 degrees [facility] P-R Interval 162 ms [facility] QRS Duration 132 ms [facility] QT Interval 458 ms [facility] QTC Calculation (Bazett) 472 ms [facility] Ventricular Rate 64 BPM [facility] Normal sinus rhythm Right bundle branch block Abnormal ECG No previous ECGs available Confirmed by LESLIE MCMILLAN MD ([id number]) on 12/13/2023 7:33:44 PM [facility] NAME : MARCIA ROONEY PID : [id number] : 1945 Gender : Female Race : ORD : Procedure Date : Dec 13 2023 12:36:45 Edit Date : Dec 13 2023 19:33:47 Diagnosis: Normal sinus rhythm Right bundle branch block Abnormal ECG No previous ECGs available Confirmed by LESLIE MCMILLAN MD ([id number]) on 12/13/2023 7:33:44 PM Test Reason : Location : 152 : URGMAS Overread By : LESLIE MCMILLAN MD Edited By : LESLIE MCMILLAN MD Referred By : BHARGAV DOMINGUEZ Acquired by : SENA, [facility] Electrocardiogram Ventricular Rate : 64 BPM Atrial Rate : 64 BPM P-R Interval : 162 ms QRS Duration : 132 ms Q-T Interval : 458 ms QTC Calculation(Bazett) : 472 ms Calculated P [place] : -10 degrees Calculated R [place] : 39 degrees Calculated T [place] : 35 degrees Normal sinus rhythm Right bundle branch block Abnormal ECG No previous ECGs available Confirmed by LESLIE MCMILLAN MD ([id number]) on 12/13/2023 7:33:44 PM NAME : MARCIA ROONEY PID : [id number] : 1945 Gender : Female Race : ORD : Procedure Date : Dec 13 2023 12:36:45 Edit Date : Dec 13 2023 19:33:47 Diagnosis: Normal sinus rhythm Right bundle branch block Abnormal ECG No previous ECGs available Confirmed by LESLIE MCMILLAN MD ([id number]) on 12/13/2023 7:33:44 PM Test Reason : Location : 152 : UR[facility]AS Overread By : LESLIE MCMILLAN MD Edited By : LESLIE MCMILLAN MD Referred By : BHARGAV DOMINGUEZ Acquired by : SENA [facility] XR CHEST 2V FRONTAL/LATon XR CHEST 2V FRONTAL/LAT * * *Final Repor t* * * DATE OF EXAM: Dec 13 2023 1:52PM RMX [id number] - XR CHEST 2V FRONTAL/LAT / PROCEDURE REASON: Chest pain on breathing * * * * Physician Interpretation * * * * EXAMINATION: CHEST RADIOGRAPH (2 VIEW FRONTAL and LATERAL) CLINICAL HISTORY: Chest pain on breathing MQ: XC2_6 EXAM DATE/TIME: 12/13/2023 1:52 PM COMPARISON: No relevant prior studies available. RESULT: Lines, tubes, and devices: None. Lungs and pleura: No consolidation. No lung mass. No pleural effusion. No pneumothorax. Cardiomediastinal silhouette: Normal cardiomediastinal silhouette. Bones and soft tissues: Unremarkable. IMPRESSION: No acute radiographic abnormality. Fitness/Wellness Director: PSCB Transcribe Date/Time: Dec 16 2023 1:41P Dictated by : MOY INFANTE MD This examination was interpreted and the report reviewed and electronically signed by: MOY INFANTE MD on Dec 16 2023 1:41PM EST [id number] CN [facility] XR Chest PA and Lateralon Radiology Study observation (narrative) [facility] Basophil percentageOrdered B y: Patricio Yee on 09-20-2023 Basophil percentage 0-5 SEEN /hpf 0-5 [facility] Bilirubin Test strip Ql (U)O rdered By: Patricio Yee on 09-20-2023 Bilirubin Ql (U) Negative Negative [facility] Culture, urineOrdered By: Korey Cano on 09-20-2023 Bacteria identified Cx Nom (U) Positive [facility] Bacteria identified Cx Nom (U) Positive [facility] Ketones Test strip Ql (U)Ord ered By: Patricio Yee on 09-20-2023 Ketones Ql (U) Negative Negative [facility] Mucus LM Ql (Urine sed)Order ed By: Patricio Yee on 09-20-2023 Mucus Ql (Urine sed) 0 SEEN /hpf [facility] Nitrite Test strip Ql (U)Ord ered By: Patricio Yee on 09-20-2023 Nitrite Ql (U) Negative Negative [facility] No Panel InformationOrdered By: Patricio Yee on 09-20-2023 Urine RBC 0-5 SEEN /hpf 0-[address] [facility] Protein Test strip Ql (U)Ord ered By: Patricio Yee on 09-20-2023 Protein Ql (U) Negative Negative [facility] Squamous epithelial cells de tection in urine sediment by light microscopyOrdered By: Patricio Yee on 09-20-2023 Epithelial cells.squamous LM Ql (Urine sed) 0-5 SEEN /hpf 5-[address] [facility] Urine blood detectionOrdered By: Patricio Yee on 09-20-2023 RBC Ql (U) 10 /ul Negative [facility] Urine clarityOrdered By: Albetr Yee on 09-20-2023 Clarity (U) Clear Clear [facility] Urine color determinationOrd ered By: Patricio Yee on 09-20-2023 Color (U) Yellow Yellow [facility] Urine glucose detectionOrder ed By: Patricio Yee on 09-20-2023 Glucose Ql (U) 100 mg/dl Normal [facility] Urine leukocyte esterase det ection by dipstickOrdered By: Patricio Yee on 09-20-2023 Leukocyte esterase Test strip Ql (U) 25 /ul Negative [facility] Urine pHOrdered By: Patricio reynoso on 09-20-2023 pH (U) 6.5 [pH] 5.0 - 8.[address] [facility] Urine sediment bacteria coun t by microscopy (number/high power field)Ordered By: Patricio Yee on 09-20-2023 Bacteria LM.HPF (Urine sed) [#/Area] 0 /[HPF] None Seen [facility] Urine specific gravity measu rementOrdered By: Patricio Yee on 09-20-2023 Specific gravity (U) [Rel density] 1.015 1.002-1.[address] [facility] Urine urobilinogen measureme ntOrdered By: Patricio Yee on 09-20-2023 Urobilinogen Ql (U) Normal mg/dl Normal [facility] Basophil percentageOrdered B y: Patricio Yee on 09-14-2023 Chloride [Moles/Vol] 104 mmol/L 98-107 [facility] Glucose [Mass/Vol] 30 mg/dL 74-106 [facility] Comment on above: Critical Result(s) C alled at: 08:58:18 09/14/2023 by: Luke Ingram to Gareth OLIVEIRA ([facility]). Results read back by same.Glucose result less than 50 mg/dL suggests HYPOGLYCEMIA. Hemoglobin (Bld) [Mass/Vol] 12.3 g/dL 12.0-15.[address] [facility] Potassium [Moles/Vol] 4.1 mmol/L 3.5-5.1 [facility] Sodium [Moles/Vol] 139 mmol/L 136-145 [facility] WBC (Bld) [#/Vol] 6.0 10*3/uL 4.4-11.0 [facility] Determination of erythrocyte mean corpuscular volume (MCV)Ordered By: Patricio Yee on 09-14-2023 MCV (RBC) [Entitic vol] 97.0 fL 81-99 [facility] Erythrocyte distribution wid th ratioOrdered By: Patricio Yee on 09-14-2023 Erythrocyte distribution width (RBC) [Ratio] 15.3 % 11.6-14.[address] [facility] Erythrocyte distribution wid th standard deviationOrdered By: Patricio Yee on 09-14-2023 Erythrocyte distribution width (RBC) [Entitic vol] 54.3 fL 35.1-43.[address] [facility] Hematocrit Auto (Bld) [Volum e fraction]Ordered By: Patricio Yee on 09-14-2023 Hematocrit (Bld) [Volume fraction] 39.3 % 37-[address] [facility] Laboratory - Chemistry and C hemistry - challengeOrdered By: Patricio Yee on 09-14-2023 CO2 [Moles/Vol] 30.0 mmol/L 21.0-32.[address] [facility] Urea nitrogen/Creatinine [Mass ratio] 30.6 mg/mg 10-[address] [facility] Laboratory - Hematology and Cell countsOrdered By: Patricio Yee on 09-14-2023 MCH (RBC) [Entitic mass] 30.4 pg 27.0-32.[address] [facility] MCHC (RBC) [Mass/Vol] 31.3 g/dL 32-36 [facility] Platelet mean volume (Bld) [Entitic vol] 8.8 fL 6.2-12.[address] [facility] Platelets (Bld) [#/Vol] 385 10*3/uL 150-[address] [facility] No Panel InformationOrdered By: Patricio Yee on 09-14-2023 Estimated GFR (MDRD) Amer 87 mL/min >[address] [facility] Comment on above: GFR Calc Estimated GFR (MDRD) Non-Af Amer 72 mL/min >[address] [facility] Comment on above: Non- GFR Calc RBC Auto (Bld) [#/Vol]Ordere d By: Patricio Yee on 09-14-2023 RBC (Bld) [#/Vol] 4.05 10*6/uL 4.2-5.4 [facility] Serum or plasma calcium josiane urement (mass/volume)Ordered By: Patricio Yee on 09-14-2023 Calcium [Mass/Vol] 9.4 mg/dL 8.5-10.1 [facility] Serum or plasma creatinine m easurement (mass/volume)Ordered By: Patricio Yee on 09-14-2023 Creatinine [Mass/Vol] 0.82 mg/dL 0.55-1.02 [facility] Comment on above: The validity of the calculated GFR & GFRAA in patients over 70 years has not been determined. Clinical correlation is essential. Serum or plasma urea nitroge n measurement (mass/volume)Ordered By: Patricio Yee on 09-14-2023 Urea nitrogen [Mass/Vol] 25 mg/dL 7-[address] [facility] Thin prep Papanicolaou smear with manual screeningOrdered By: Patricio Yee on 09-14-2023 Thin prep Papanicolaou smear with manual screening 5 5-[address] [facility] Basophil percentageOrdered B y: Patricio Yee on 09-12-2023 Bilirubin [Mass/Vol] 0.60 mg/dL 0.20-1.00 [facility] Comment on above: For patients on eltr ombopag therapy, use of Dimension [place] TBIL is not recommended. Chloride [Moles/Vol] 102 mmol/L 98-107 [facility] Glucose [Mass/Vol] 36 mg/dL 74-106 [facility] Comment on above: Glucose result less than 50 mg/dL suggests HYPOGLYCEMIA. Hemoglobin (Bld) [Mass/Vol] 11.5 g/dL 12.0-15.[address] [facility] Potassium [Moles/Vol] 2.9 mmol/L 3.5-5.1 [facility] Comment on above: Slight Hemolysis, Re sult may be falsely increased. Protein [Mass/Vol] 6.0 g/dL 6.4-8.2 [facility] Sodium [Moles/Vol] 139 mmol/L 136-145 [facility] WBC (Bld) [#/Vol] 5.8 10*3/uL 4.4-11.0 [facility] Determination of erythrocyte mean corpuscular volume (MCV)Ordered By: Patricio Yee on 09-12-2023 MCV (RBC) [Entitic vol] 96.2 fL 81-99 [facility] Erythrocyte distribution wid th ratioOrdered By: Patricio Yee on 09-12-2023 Erythrocyte distribution width (RBC) [Ratio] 15.0 % 11.6-14.[address] [facility] Erythrocyte distribution wid th standard deviationOrdered By: Patricio Yee on 09-12-2023 Erythrocyte distribution width (RBC) [Entitic vol] 52.2 fL 35.1-43.[address] [facility] Hematocrit Auto (Bld) [Volum e fraction]Ordered By: Patricio Yee on 09-12-2023 Hematocrit (Bld) [Volume fraction] 35.3 % 37-[address] [facility] Laboratory - Chemistry and C hemistry - challengeOrdered By: Patricio Yee on 09-12-2023 Albumin/Globulin [Mass ratio] 0.9 {ratio} 0.9-2.[address] [facility] ALP [Catalytic activity/Vol] 228 U/L 45-[address] [facility] ALT [Catalytic activity/Vol] 13 U/L 13-[address] [facility] CO2 [Moles/Vol] 29.0 mmol/L 21.0-32.[address] [facility] Globulin (S) [Mass/Vol] 3.1 g/dL 2.2-4.2 [facility] Urea nitrogen/Creatinine [Mass ratio] 27.3 mg/mg 10-[address] [facility] Laboratory - Hematology and Cell countsOrdered By: Patricio Yee on 09-12-2023 MCH (RBC) [Entitic mass] 31.3 pg 27.0-32.[address] [facility] MCHC (RBC) [Mass/Vol] 32.6 g/dL 32-36 [facility] Platelet mean volume (Bld) [Entitic vol] 9.0 fL 6.2-12.[address] [facility] Platelets (Bld) [#/Vol] 343 10*3/uL 150-[address] [facility] No Panel InformationOrdered By: Patricio Yee on 09-12-2023 Estimated GFR (MDRD) Amer 88 mL/min >[address] [facility] Comment on above: GFR Calc Estimated GFR (MDRD) Non-Af Amer 73 mL/min >[address] [facility] Comment on above: Non- GFR Calc RBC Auto (Bld) [#/Vol]Ordere d By: Patricio Yee on 09-12-2023 RBC (Bld) [#/Vol] 3.67 10*6/uL 4.2-5.4 [facility] Serum or plasma calcium josiane urement (mass/volume)Ordered By: Patricio Yee on 09-12-2023 Calcium [Mass/Vol] 8.9 mg/dL 8.5-10.1 [facility] Serum or plasma creatinine m easurement (mass/volume)Ordered By: Patricio Yee on 09-12-2023 Creatinine [Mass/Vol] 0.81 mg/dL 0.55-1.02 [facility] Comment on above: The validity of the calculated GFR & GFRAA in patients over 70 years has not been determined. Clinical correlation is essential. Serum or plasma thyroid stim ulating hormone (TSH) measurement (units/volume)Ordered By: Patricio Yee on 09-12-2023 TSH Qn 50.20 uIU/mL 0.358-3.[address] [facility] Serum or plasma urea nitroge n measurement (mass/volume)Ordered By: Patricio Yee on 09-12-2023 Urea nitrogen [Mass/Vol] 22 mg/dL 7-[address] [facility] Thin prep Papanicolaou smear with manual screeningOrdered By: Patricio Yee on 09-12-2023 Thin prep Papanicolaou smear with manual screening 2.9 g/dL 3.2-5.[address] [facility] Thin prep Papanicolaou smear with manual screening 23 U/L 15-[address] [facility] Comment on above: Slight Hemolysis, Re sult may be falsely increased. Thin prep Papanicolaou smear with manual screening 8 5-[address] [facility] Whole blood hemoglobin A1c/t otal hemoglobin ratio (mass fraction)Ordered By: Patricio Yee on 09-12-2023 HbA1c (Bld) [Mass fraction] 8.1 % 3.8-5.[address] [facility] Comment on above: Normal < 5.7 % Predi abetic 5.7 - 6.4 % Diabetic >or= 6.5 % Please note range changes. Basophil percentageOrdered B y: Patricio Yee on 09-11-2023 Bilirubin [Mass/Vol] 1.00 mg/dL 0.20-1.00 [facility] Comment on above: For patients on eltr ombopag therapy, use of Dimension [place] TBIL is not recommended. Chloride [Moles/Vol] 100 mmol/L 98-107 [facility] Glucose [Mass/Vol] 71 mg/dL 74-106 [facility] Hemoglobin (Bld) [Mass/Vol] 12.3 g/dL 12.0-15.[address] [facility] Potassium [Moles/Vol] 3.5 mmol/L 3.5-5.1 [facility] Protein [Mass/Vol] 6.7 g/dL 6.4-8.2 [facility] Sodium [Moles/Vol] 137 mmol/L 136-145 [facility] WBC (Bld) [#/Vol] 6.9 10*3/uL 4.4-11.0 [facility] Determination of erythrocyte mean corpuscular volume (MCV)Ordered By: Patricio Yee on 09-11-2023 MCV (RBC) [Entitic vol] 96.3 fL 81-99 [facility] Erythrocyte distribution wid th ratioOrdered By: Patricio Yee on 09-11-2023 Erythrocyte distribution width (RBC) [Ratio] 15.0 % 11.6-14.[address] [facility] Erythrocyte distribution wid th standard deviationOrdered By: Patricio Yee on 09-11-2023 Erythrocyte distribution width (RBC) [Entitic vol] 53.2 fL 35.1-43.[address] [facility] Hematocrit Auto (Bld) [Volum e fraction]Ordered By: Patricio Yee on 09-11-2023 Hematocrit (Bld) [Volume fraction] 38.5 % 37-[address] [facility] Laboratory - Chemistry and C hemistry - challengeOrdered By: Patricio Yee on 09-11-2023 Albumin/Globulin [Mass ratio] 0.9 {ratio} 0.9-2.[address] [facility] ALP [Catalytic activity/Vol] 229 U/L 45-[address] [facility] ALT [Catalytic activity/Vol] 14 U/L 13-[address] [facility] CO2 [Moles/Vol] 31.0 mmol/L 21.0-32.[address] [facility] Globulin (S) [Mass/Vol] 3.5 g/dL 2.2-4.2 [facility] Urea nitrogen/Creatinine [Mass ratio] 26.0 mg/mg 10-[address] [facility] Laboratory - Hematology and Cell countsOrdered By: Patricio Yee on 09-11-2023 MCH (RBC) [Entitic mass] 30.8 pg 27.0-32.[address] [facility] MCHC (RBC) [Mass/Vol] 31.9 g/dL 32-36 [facility] Platelet mean volume (Bld) [Entitic vol] 9.0 fL 6.2-12.[address] [facility] Platelets (Bld) [#/Vol] 386 10*3/uL 150-[address] [facility] No Panel InformationOrdered By: Patricio Yee on 09-11-2023 Estimated GFR (MDRD) Amer 84 mL/min >[address] [facility] Comment on above: GFR Calc Estimated GFR (MDRD) Non-Af Amer 69 mL/min >[address] [facility] Comment on above: Non- GFR Calc RBC Auto (Bld) [#/Vol]Ordere d By: Patricio Yee on 09-11-2023 RBC (Bld) [#/Vol] 4.00 10*6/uL 4.2-5.4 [facility] Serum or plasma calcium josiane urement (mass/volume)Ordered By: Patricio Yee on 09-11-2023 Calcium [Mass/Vol] 9.3 mg/dL 8.5-10.1 [facility] Serum or plasma creatinine m easurement (mass/volume)Ordered By: Patricio Yee on 09-11-2023 Creatinine [Mass/Vol] 0.84 mg/dL 0.55-1.02 [facility] Comment on above: The validity of the calculated GFR & GFRAA in patients over 70 years has not been determined. Clinical correlation is essential. Serum or plasma thyroid stim ulating hormone (TSH) measurement (units/volume)Ordered By: Patricio Yee on 09-11-2023 TSH Qn 57.00 uIU/mL 0.358-3.[address] [facility] Serum or plasma urea nitroge n measurement (mass/volume)Ordered By: Patricio Yee on 09-11-2023 Urea nitrogen [Mass/Vol] 22 mg/dL 7-[address] [facility] Thin prep Papanicolaou smear with manual screeningOrdered By: Patricio Yee on 09-11-2023 Thin prep Papanicolaou smear with manual screening 3.2 g/dL 3.2-5.[address] [facility] Thin prep Papanicolaou smear with manual screening 21 U/L 15-[address] [facility] Thin prep Papanicolaou smear with manual screening 6 5-[address] [facility] Whole blood hemoglobin A1c/t otal hemoglobin ratio (mass fraction)Ordered By: Patricio Yee on 09-11-2023 HbA1c (Bld) [Mass fraction] 8.0 % 3.8-5.[address] [facility] Comment on above: Normal < 5.7 % Predi abetic 5.7 - 6.4 % Diabetic >or= 6.5 % Please note range changes. Basic metabolic 2000 panelon 09-07-2023 Anion gap [Moles/Vol] mmol/L Low - [facility] Comment on above: Order Comment: Speci men Type: BLOOD SPECIMENOrdering Facility: [facility] Address: [address] [place] [address] Performed By: #### 2 4321-2 ####[facility] LABORATORYCLIA [id number] [place] [address] [place] Calcium [Mass/Vol] 9.0 mg/dL Normal 8.5-10.5 [facility] Comment on above: Order Comment: Speci men Type: BLOOD SPECIMENOrdering Facility: [facility] Address: [address] [place] [address] Performed By: #### 2 4321-2 ####[facility] LABORATORYCLIA [id number] [place] [id number] [place] Chloride [Moles/Vol] 99 mmol/L Normal 98-107 [facility] Comment on above: Order Comment: Speci men Type: BLOOD SPECIMENOrdering Facility: [facility] Address: [address] [place] [address] Performed By: #### 2 4321-2 ####[facility] LABORATORYCLIA [id number] [place] [address] [place] CO2 [Moles/Vol] 36 mmol/L High 21-32 [facility] Comment on above: Order Comment: Speci men Type: BLOOD SPECIMENOrdering Facility: [facility] Address: [address] [place] [address] Performed By: #### 2 4321-2 ####[facility] LABORATORYCLIA [id number] [place] [address] [place] Creatinine [Mass/Vol] 1.14 mg/dL High 0.51-0.95 [facility] Comment on above: Order Comment: Speci men Type: BLOOD SPECIMENOrdering Facility: [facility] Address: [address] [place] [address] Result Comment: Jacqueline ents receiving either N-Acetylcysteine (NAC) or Metamizole prior to venipuncture, may have falsely depressed results. Performed By: #### 2 4321-2 ####[facility] LABORATORYCLIA [id number] [place] [address] [place] Creatinine and Glomerular filtration rate.predicted panel (S/P/Bld) 50 mL/min/1.73m??? Low >=60 [facility] Comment on above: Order Comment: Speci men Type: BLOOD SPECIMENOrdering Facility: [facility] Address: [address] [place] [address] Result Comment: Paula mated Glomerular Filtration Rate (eGFR) is calculated using the 2020 CKD-EPI creatinine equation. This equation utilizes serum creatinine, sex, and age as parameters. The creatinine assay has traceable calibration to isotope dilution-mass spectrometry. Refer to KDIGO guidelines for clinical interpretation. In patients with unstable renal function, e.g. those with acute kidney injury, the eGFR may not accurately reflect actual GFR. Performed By: #### 2 4321-2 ####[facility] LABORATORYCLIA [id number] [place] [address] [place] Glucose [Mass/Vol] 123 mg/dL High 70-100 [facility] Comment on above: Order Comment: Specjudah men Type: BLOOD SPECIMENOrdering Facility: [facility] Address: [address] [place] [address] Result Comment: The [place] [employer] (ADA) provides guidance for cutoff values for fasting glucose and random glucose. The ADA defines fasting as no caloric intake for at least 8 hours. Fasting plasma glucose results between 100 to 125 mg/dL indicate increased risk for diabetes (prediabetes). Fasting plasma glucose results greater than or equal to 126 mg/dL meet the criteria for diagnosis of diabetes. In the absence of unequivocal hyperglycemia, results should be confirmed by repeat testing. In a patient with classic symptoms of hyperglycemia or hyperglycemic crisis, random plasma glucose results greater than or equal to 200 mg/dL meet the criteria for diagnosis of diabetes. Reference: Standards of Medical Care in Diabetes 2016, [place] [employer]. Diabetes Care. 2016.39(Suppl 1). Results may be falsely elevated after the administration of Sulfapyridine. Results may be falsely depressed after the administration of Sulfasalazine. Performed By: #### 2 4321-2 ####[facility] LABORATORYCLIA [id number] [place] [address] [place] Potassium [Moles/Vol] 3.5 mmol/L Normal 3.5-5.1 [facility] Comment on above: Order Comment: Anahii men Type: BLOOD SPECIMENOrdering Facility: [facility] Address: [address] [place] [id number] Performed By: #### 2 4321-2 ####[facility] LABORATORYCLIA [id number] [place] [address] [place] Sodium [Moles/Vol] 137 mmol/L Normal 136-145 [facility] Comment on above: Order Comment: Speci men Type: BLOOD SPECIMENOrdering Facility: [facility] Address: [address] [place] [address] Performed By: #### 2 4321-2 ####[facility] LABORATORYCLIA [id number] [place] [id number] [place] Urea nitrogen [Mass/Vol] 24 mg/dL Normal 7-26 [facility] Comment on above: Order Comment: Speci men Type: BLOOD SPECIMENOrdering Facility: [facility] Address: [address] [place] [address] Performed By: #### 2 4321-2 ####[facility] LABORATORYCLIA [id number] [place] [id number] [place] CBC panel Auto (Bld)on 09-07 Erythrocyte distribution width (RBC) [Ratio] 14.5 % Normal 11.5-15.0 [facility] Comment on above: Order Comment: Speci men Type: BLOOD SPECIMENOrdering Facility: [facility] Address: [address] [place] [address] Performed By: #### 5 8410-2 ####[facility] LABORATORYCLIA [id number] [place] [address] [place] Hematocrit (Bld) [Volume fraction] 35.0 % Low 36.0-46.0 [facility] Comment on above: Order Comment: Speci men Type: BLOOD SPECIMENOrdering Facility: [facility] Address: [address] [place] [address] Performed By: #### 5 8410-2 ####[facility] LABORATORYIA [id number] [place] [id number] [place] Hemoglobin (Bld) [Mass/Vol] 11.4 g/dL Low 11.5-15.5 [facility] Comment on above: Order Comment: Speci men Type: BLOOD SPECIMENOrdering Facility: [facility] Address: [address] [place] [address] Performed By: #### 5 8410-2 ####[facility] LABORATORYCLIA [id number] [address] [place] [facility] MCH (RBC) [Entitic mass] 30.2 pg Normal 26.0-34.0 [facility] Comment on above: Order Comment: Speci men Type: BLOOD SPECIMENOrdering Facility: [facility] Address: [address] [place] [address] Performed By: #### 5 8410-2 ####[facility] LABORATORYCLIA [id number] [address] [place] MCHC (RBC) [Mass/Vol] 32.6 g/dL Normal 30.5-36.0 [facility] Comment on above: Order Comment: Speci men Type: BLOOD SPECIMENOrdering Facility: [facility] Address: [address] [place] [address] Performed By: #### 5 8410-2 ####[facility] LABORATORYCLIA [id number] [address] [place] MCV (RBC) [Entitic vol] 92.6 fL Normal 80.0-100.0 [facility] Comment on above: Order Comment: Speci men Type: BLOOD SPECIMENOrdering Facility: [facility] Address: [address] [place] [address] Performed By: #### 5 8410-2 ####[facility] LABORATORYCLIA [id number] [address] [place] Nucleated RBC (Bld) [#/Vol] 10*3/uL Normal <0.01 [facility] Comment on above: Order Comment: Speci men Type: BLOOD SPECIMENOrdering Facility: [facility] Address: [address] [place] [address] Performed By: #### 5 8410-2 ####[facility] LABORATORYCLIA [id number] [place] [address] [place] Platelet mean volume (Bld) [Entitic vol] 9.4 fL Normal 9.0-12.7 [facility] Comment on above: Order Comment: Speci men Type: BLOOD SPECIMENOrdering Facility: [facility] Address: [address] [place] [address] Performed By: #### 5 8410-2 ####[facility] LABORATORYCLIA [id number] [place] [id number] [facility] [place] Platelets (Bld) [#/Vol] 249 10*3/uL Normal 150-400 [facility] Comment on above: Order Comment: Speci men Type: BLOOD SPECIMENOrdering Facility: [facility] Address: [address] [place] [address] Performed By: #### 5 8410-2 ####[facility] LABORATORYCLIA [id number] [address] RBC (Bld) [#/Vol] 3.78 10*6/uL Low 3.90-5.20 [facility] Comment on above: Order Comment: Speci men Type: BLOOD SPECIMENOrdering Facility: [facility] Address: [address] [place] [address] Performed By: #### 5 8410-2 ####[facility] LABORATORYCLIA [id number] [place] [id number] [facility] WBC (Bld) [#/Vol] 6.54 10*3/uL Normal 3.70-11.00 [facility] Comment on above: Order Comment: Speci men Type: BLOOD SPECIMENOrdering Facility: [facility] Address: [address] [place] [address] Performed By: #### 5 8410-2 ####[facility] LABORATORYCLIA [id number] [place] [id number] [facility] CNDSon 09-07-2023 CNDS HNO ID: [id number] Author: NEERU STEEL MD Service: Hospital Medicine Author Type: Physician Cvt Rn Type: Discharge Summary Filed: 09/07/2023 16:08 Note Text: Attestation signed by Neeru Steel MD at 09/07/2023 4:08 PM Patient seen and evaluated independently of the nurse practitioner. history of present illness: The patient is 77-year-old female who presented to the hospital after having a fall at home. Upon further evaluation patient was noted to have a subdural hematoma. Neurosurgery and neurology were asked to follow. Plan for outpatient follow-up. Patient was noted to have orthostatic hypotension and was started on midodrine and blood pressures have been tolerable. Patient was found to have elevated TSH at 108. Endocrinology evaluated with plans for outpatient follow-up. Suspect patient may not have been taking her home Synthroid. Explained the importance of her taking her thyroid medication and how it can result in if she doesn't take the medication myxedema coma. Patient's creatinine borderline elevated today, patient was given some fluids. Would recommend close outpatient monitoring of kidney function electrolytes TSH. Physical exam: General: Elderly female, pleasant, patient is alert and oriented x3 and is in no acute respiratory distress HEENT: Normal cephalic, scalp hematoma, PERRLA, poor dentition Lungs: Clear to auscultation, no wheezing, rales, or rhonchi. Cardiac: Regular rhythm and rate, no murmurs, no rubs. Abdomen: Soft, nontender, nondistended, bowel sounds are active. Extremities: No edema, cyanosis, or clubbing. Skin: Couple bruises noted, no rashes or breakdown. Musculoskeletal: Normal MS exam, moves all extremities Lymphatic: Negative cervical, supra-clavicular, groin lymphadenopathy. Neurologic: Cranial nerves from II-XII intact grossly, no focal deficits. Psychiatry: Normal affect. DISCHARGE SUMMARY PATIENT NAME: Marcia Rooney ADMISSION DATE: 08/31/2023 DISCHARGE DATE: 09/07/2023 ATTENDING PHYSICIAN: Neeru Steel MD Code Status: Full Code Highest Readmission Risk Score: 28 The 30 day readmissions risk score is derived from an internally validated risk model which evaluates patient level characteristics, utilization history, medication orders and lab results up until the day of discharge. Patients with a score of 40 or above are considered highest risk for readmission. Specific patient level drivers will be listed at the bottom of the summary. CONSULTING TEAMS DURING HOSPITALIZATION: Endocrinology: Neurology: Neurosurgery: Treatment Team: Attending Provider: Neeru Steel MD REASON FOR HOSPITALIZATION: Unwitnessed fall DIAGNOSIS: Principal Problem: Weakness (POA: Yes) Active Problems: Severe protein-calorie malnutrition (HCC) (POA: Yes) Resolved Problems: * No resolved hospital problems. * Sepsis Ruled Out OPERATIONS DURING HOSPITALIZATION: None PROCEDURES DURING HOSPITALIZATION: Echocardiogram, MRI, and CT HOSPITAL COURSE: Pt is a 77 yo female with PMHx of TIIDM and hypothyroidism presenting after a fall at home. She was found to have a L scalp hematoma and later discovered to have a new subdural hematoma which was likely 2/2 evolution of the parietal scalp hematoma. Neurosurgery evaluated and recommended against surgical intervention. Neurology recommended OP follow-up in 1-2 weeks as well as ongoing use of midodrine and ensuring adequate hydration. Endocrinology was consulted for TSH elevation and Low T4, recommending continuing synthroid 150mcg with close OP endo follow up. Patient is being discharged in stable condition to [facility] and agrees with plan. Understands importance of close follow up for re-evaluation and possible repeat vitals/labs/imaging. The problems as detailed below were addressed on admission. #Fall #Generalized Weakness #L Posterior scalp hematoma - CT showed large L posterior scalp hematoma without underlying fracture. - XR R elbow negative for Fx. XR L Kneen neg for Fx. CT C spine without acute process. - PT/OT recommending SNF, pt agreeable. #Subdural hematoma - MRI showed a new subdural hematoma likely evolution of the left parietal scalp hematoma - Neurosurgery recommended no surgical intervention with follow-up as needed. - Neurology recommended repeat evaluation in 1 to 2 weeks for subdural hematoma as well as suspected hydrocephalus. Recommended ongoing use of midodrine. #Orthostatic Hypotension - improved - Continue midodrine 5mg q8hrs. Continue compression stockings. #TIIDM w/ hyperglycemia- Continue home meds #Acquired Hypothyroidism - Continue home synthroid 150mcg. - Endo recommended continuing home synthroid dose. Will need to follow up with endo as OP. #De (more content not included)... [facility] THERAPY NTon 09-07-2023 THERAPY NT HNO ID: [id number] Author: SERENA GUTIERREZ PTA Service: Physical Therapy Author Type: Associate Professor Of Physics Type: Therapy (PT/OT/Speech/Resp) Filed: 09/07/2023 14:32 Note Text: Attestation signed by Main Baker, PT at 09/07/2023 4:08 PM I reviewed and agree with the assessment as documented above. SIGNATURE: Main Baker PT DATE: September 07, 2023 TIME: 4:08 PM Physical Therapy Treatment Summary SERVICE DATE: 09/07/2023 SERVICE TIME: 1030 to 1054 ROOM: [place] [address] PT 6 Clicks Score: 13 DISCHARGE RECOMMENDATIONS Subacute/SNF Recommended Discharge Disposition Comments: Pt tolerated PT eval fair. Pt remains dizzy, fatigued, and unsteady. Pt is min assistance for functional mobility with ww. Pt is limited per weakness. REcommend SNF at this time pt resides home alone Recommended Discharge Disposition Due to: decline in functional status requiring daily skilled care Recommended Discharge Equipment: Wheeled Walker ASSESSMENT PRECAUTIONS Fall Risk, Bed/Chair Alarm, Lines/Tubes/Drains orthostatic +, primafit CURRENT HOSPITAL COURSE fall resulting in L posterior scalp hematoma Relevant Past Medical History: diabetes HOME LIVING Patient Lives With: Self/Alone Assistance Available: PRN, Other: See Comment Comments: Son lives nearby and bestfriend lives next door Entry To Home: Stairs, With Rail Number Of Stairs Into Home: 0 Number Of Stairs To Bed/Bath: 0 Tub/Shower Type: tub/shower Laundry: laundry down the shelton Equipment Owned: Cane, Walker- Wheeled PRIOR FUNCTIONAL LEVEL Within Functional Limits pt reports independence with ADLs, IADLs, denies device use; notes falling once standing on command SUBJECTIVE THERAPY DIAGNOSIS Reduced mobility-other TREATMENT INTERVENTIONS TRAINING AND EDUCATION PROVIDED THERAPEUTIC SKILLS USED FUNCTIONAL STATUS Bed Mobility Rolling: Moderate Assistance Supine To Sit: Moderate Assistance Scooting: Minimal Assistance Transfers Sit To Stand: Moderate Assistance Stand To Sit: Moderate Assistance Bed to Chair Gait Minimal Assistance Gait Device: Wheeled Walker Gait Distance (feet): 10 feet x 1 Stairs GOALS Patient will demonstrate progress to optimize functional mobility, maximize activity tolerance and endurance to maximize function upon discharge. Able to Perform HEP with: Independent Transfer Supine to/from Sit with: Modified Independent Transfer Sit to/from Stand with: Modified Independent Ambulate with: Modified Independent Distance: 50 Ambulate Up and Down Steps with: Stand By Assistance Rehab Potential: Fair Progress Toward Goals: Progressing slower than expected PLAN PT Frequency: 3 Times Per Week Treatment Interventions: Education Plan for Next Visit: Gait Training SIGNATURE: Serena Gutierrez PTA PATIENT NAME: Marcia Rooney DATE: September 07, 2023 TIME: 2:31 PM Normal [facility] Basic metabolic 2000 panelon 09-06-2023 Anion gap [Moles/Vol] 3 mmol/L Low 5-16 [facility] Comment on above: Order Comment: Speci men Type: URINE SPECIMEN Ordering Facility: [facility] Address: [address] [place] [id number] Performed By: #### 2 4356-8 #### [facility] CLIA [id number] [address] [place] [address] [place] Calcium [Mass/Vol] 9.1 mg/dL Normal 8.5-10.5 [facility] Comment on above: Order Comment: Speci men Type: URINE SPECIMEN Ordering Facility: [facility] Address: [address] [place] [address] Performed By: #### 2 4356-8 #### [facility] CLIA [id number] [address] [place] [address] [place] Chloride [Moles/Vol] 99 mmol/L Normal 98-107 [facility] Comment on above: Order Comment: Speci men Type: URINE SPECIMEN Ordering Facility: [facility] Address: [address] [place] [address] Performed By: #### 2 4356-8 #### [facility] CLIA [id number] [address] [place] [address] [place] CO2 [Moles/Vol] 35 mmol/L High 21-32 [facility] Comment on above: Order Comment: Speci men Type: URINE SPECIMEN Ordering Facility: [facility] Address: [address] [place] [address] Performed By: #### 2 4356-8 #### [facility] CLIA [id number] [address] [place] [address] [place] Creatinine [Mass/Vol] 1.02 mg/dL High 0.51-0.95 [facility] Comment on above: Order Comment: Speci men Type: URINE SPECIMEN Ordering Facility: [facility] Address: [address] [place] [address] Result Comment: Jacqueline ents receiving either N-Acetylcysteine (NAC) or Metamizole prior to venipuncture, may have falsely depressed results. Performed By: #### 2 4356-8 #### [facility] CLIA [id number] [address] [place] [address] [place] Creatinine and Glomerular filtration rate.predicted panel (S/P/Bld) 57 mL/min/1.73m??? Low >=60 [facility] Comment on above: Order Comment: Speci men Type: URINE SPECIMEN Ordering Facility: [facility] Address: [address] [place] [address] Result Comment: Paula mated Glomerular Filtration Rate (eGFR) is calculated using the 2020 CKD-EPI creatinine equation. This equation utilizes serum creatinine, sex, and age as parameters. The creatinine assay has traceable calibration to isotope dilution-mass spectrometry. Refer to KDIGO guidelines for clinical interpretation. In patients with unstable renal function, e.g. those with acute kidney injury, the eGFR may not accurately reflect actual GFR. Performed By: #### 2 4356-8 #### [facility] CLIA [id number] [address] [place] [address] [place] Glucose [Mass/Vol] 183 mg/dL High 70-100 [facility] Comment on above: Order Comment: Speci men Type: URINE SPECIMEN Ordering Facility: [facility] Address: [address] [place] [address] Result Comment: The [place] [employer] (ADA) provides guidance for cutoff values for fasting glucose and random glucose. The ADA defines fasting as no caloric intake for at least 8 hours. Fasting plasma glucose results between 100 to 125 mg/dL indicate increased risk for diabetes (prediabetes). Fasting plasma glucose results greater than or equal to 126 mg/dL meet the criteria for diagnosis of diabetes. In the absence of unequivocal hyperglycemia, results should be confirmed by repeat testing. In a patient with classic symptoms of hyperglycemia or hyperglycemic crisis, random plasma glucose results greater than or equal to 200 mg/dL meet the criteria for diagnosis of diabetes. Reference: Standards of Medical Care in Diabetes 2016, [place] [employer]. Diabetes Care. 2016.39(Suppl 1). Results may be falsely elevated after the administration of Sulfapyridine. Results may be falsely depressed after the administration of Sulfasalazine. Performed By: #### 2 4356-8 #### [facility] CLIA [id number] [address] [place] [address] [place] Potassium [Moles/Vol] 3.8 mmol/L Normal 3.5-5.1 [facility] Comment on above: Order Comment: Sanjuana cazares Type: URINE SPECIMEN Ordering Facility: [facility] Address: [address] [place] [id number] Performed By: #### 2 4356-8 #### [facility] CLIA [id number] [address] [place] [address] [place] Sodium [Moles/Vol] 137 mmol/L Normal 136-145 [facility] Comment on above: Order Comment: Speci men Type: URINE SPECIMEN Ordering Facility: [facility] Address: [address] [place] [address] Performed By: #### 2 4356-8 #### [facility] CLIA [id number] [address] [place], [place] [id number] [place] Urea nitrogen [Mass/Vol] 22 mg/dL Normal 7-26 [facility] Comment on above: Order Comment: Speci men Type: URINE SPECIMEN Ordering Facility: [facility] Address: [address] [place] [address] Performed By: #### 2 4356-8 #### [facility] CLIA [id number] [address] [place] [address] [place] CBC panel Auto (Bld)on 09-06 Erythrocyte distribution width (RBC) [Ratio] 14.2 % Normal 11.5-15.0 [facility] Comment on above: Order Comment: Speci men Type: URINE SPECIMEN Ordering Facility: [facility] Address: [address] [place] [address] Performed By: #### 2 4356-8 #### [facility] CLIA [id number] [address] [place] [address] [place] Hematocrit (Bld) [Volume fraction] 35.6 % Low 36.0-46.0 [facility] Comment on above: Order Comment: Speci men Type: URINE SPECIMEN Ordering Facility: [facility] Address: [address] [place] [address] Performed By: #### 2 4356-8 #### [facility] CLIA [id number] [address] [place], [place] [address] [place] Hemoglobin (Bld) [Mass/Vol] 11.7 g/dL Normal 11.5-15.5 [facility] Comment on above: Order Comment: Speci men Type: URINE SPECIMEN Ordering Facility: [facility] Address: [address] [place] [address] Performed By: #### 2 4356-8 #### [facility] CLIA [id number] [address] [place] [address] [place] MCH (RBC) [Entitic mass] 30.4 pg Normal 26.0-34.0 [facility] Comment on above: Order Comment: Speci men Type: URINE SPECIMEN Ordering Facility: [facility] Address: [address] [place] [address] Performed By: #### 2 4356-8 #### [facility] CLIA [id number] [address] [place] [address] [place] MCHC (RBC) [Mass/Vol] 32.9 g/dL Normal 30.5-36.0 [facility] Comment on above: Order Comment: Speci men Type: URINE SPECIMEN Ordering Facility: [facility] Address: [address] [place] [address] Performed By: #### 2 4356-8 #### [facility] CLIA [id number] [address] [place] [address] [place] MCV (RBC) [Entitic vol] 92.5 fL Normal 80.0-100.0 [facility] Comment on above: Order Comment: Speci men Type: URINE SPECIMEN Ordering Facility: [facility] Address: [address] [place] [address] Performed By: #### 2 4356-8 #### [facility] CLIA [id number] [address] [place] [address] [place] Nucleated RBC (Bld) [#/Vol] 10*3/uL Normal <0.01 [facility] Comment on above: Order Comment: Speci men Type: URINE SPECIMEN Ordering Facility: [facility] Address: [address] [place] [address] Performed By: #### 2 4356-8 #### [facility] CLIA [id number] [address] [place] [address] [place] Platelet mean volume (Bld) [Entitic vol] 9.2 fL Normal 9.0-12.7 [facility] Comment on above: Order Comment: Speci men Type: URINE SPECIMEN Ordering Facility: [facility] Address: [address] [place] [address] Performed By: #### 2 4356-8 #### [facility] CLIA [id number] [address] [place], [place] [id number] [facility] Platelets (Bld) [#/Vol] 237 10*3/uL Normal 150-400 [facility] Comment on above: Order Comment: Speci men Type: URINE SPECIMEN Ordering Facility: [facility] Address: [address] [place] [address] Performed By: #### 2 4356-8 #### [facility] CLIA [id number] [address] [place], [place] [address] [facility] RBC (Bld) [#/Vol] 3.85 10*6/uL Low 3.90-5.20 [facility] Comment on above: Order Comment: Speci men Type: URINE SPECIMEN Ordering Facility: [facility] Address: [address] [place] [address] Performed By: #### 2 4356-8 #### [facility] CLIA [id number] [address] [place] [address] WBC (Bld) [#/Vol] 6.70 10*3/uL Normal 3.70-11.00 [facility] Comment on above: Order Comment: Speci men Type: URINE SPECIMEN Ordering Facility: [facility] Address: [address] [place] [address] Performed By: #### 2 4356-8 #### [facility] CLIA [id number] [address] [place], [place] [address] [facility] CONSULTon 09-06-2023 CONSULT HNO ID: [id number] Author: ALEXANDRA LOWE MD Service: Neurology General Author Type: Physician Type: Consults Filed: 09/06/2023 16:09 Note Text: INITIAL CONSULT - GENERAL NEUROLOGY SERVICE DATE: 09/06/2023 SERVICE TIME: 4:02 PM Team Requesting Consult: PMD Current Attending Provider: Neeru Steel MD Neurology was asked by the PMD team to evaluate Marcia Rooney, a 77 year old female for a chief complaint of fall and dizzy Subjective HPI: This is Ms. Marcia Rooney a 77 year old female who fell about 6 days ago. When she made her turn in the bathroom. No loss of consciousness. Admitted to the hospital for further evaluation. Has ecchymosis in and about the neck area. Some soreness or when she lays on it as well as the back part of the left of her head. A small sliver subdural convexity neurosurgery do-nothing. Since the fall she has been kind of dizzy when she stands and she apparently is orthostatic. Midodrine has been started. Denies any gait ataxia, bowel bladder dysfunction or cognitive impairment. 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 She should follow-up with neurology for further evaluation regarding that problem which is a complicated 1 foot diagnosis and treatment. Current Facility-Administere d Medications Medication Dose Route Frequency oxyCODONE IR 5 mg tab(s) (ROXICODONE) 5 mg ORAL q 4 H PRN dextrose 40 % 15 g 15 g ORAL PRN Or glucagon 1 mg injection 1 mg INTRAMUSCULAR PRN Or dextrose 10% iv bolus 12.5 g INTRAVENOUS PRN NaCl 0.9% iv flush bag 20 mL INTRAVENOUS PRN bumetanide 1 mg tab(s) (BUMEX) 1 mg ORAL DAILY buPROPion XL 150 mg tab(s) (WELLBUTRIN XL) 150 mg ORAL DAILY venlafaxine ER 37.5 mg cap(s) (EFFEXOR XR) 37.5 mg ORAL DAILY levothyroxine 150 mcg tab(s) (SYNTHROID) 150 mcg ORAL BEFORE BREAKFAST DAILY acetaminophen 1,000 mg tab(s) (TYLENOL) 1,000 mg ORAL q 8 H insulin lispro injection (rapid acting) (ADMElog) SUBCUTANEOUS w MEALS insulin lispro injection (rapid acting) (ADMElog) SUBCUTANEOUS AT BEDTIME NaCl 0.9% iv infusion 50 mL/hr INTRAVENOUS CONTINUOUS midodrine 5 mg tab(s) (PROAMITINE) 5 mg ORAL q 8 H prochlorperazine 5 mg injection (COMPAZINE) 5 mg INTRAVENOUS q 6 H PRN PAST MEDICAL HISTORY Diagnosis Date Diabetes (HCC) No past surgical history on file. Social History Tobacco Use Smoking status: Former Packs/day: .5 Types: Cigarettes Substance Use Topics Alcohol use: Not Currently Drug use: Never No family history on file. ALLERGIES No Known Allergies REVIEW OF SYSTEMS: As above Neck soreness ENT okay Skin okay Abdomen okay Eye okay PHYSICAL EXAM: General appearance: Out of bed talking to her friend no distress pleasant well nourished Ears negative Nose negative Eyes negative Neuroexam Mentation clear Sensory normal Motor normal Cranial nerves unremarkable Neck full range of motion LABS/DATA: WBC (k/uL) Date Value 09/06/2023 6.70 09/05/2023 7.59 09/04/2023 6.25 09/02/2023 5.48 09/01/2023 9.92 RBC (m/uL) Date Value 09/06/2023 3.85 09/05/2023 3.86 09/04/2023 3.85 09/02/2023 3.87 09/01/2023 4.06 Platelet Count (k/uL) Date Value 09/06/2023 237 09/05/2023 233 09/04/2023 225 09/02/2023 215 09/01/2023 238 BUN (mg/dL) Date Value 09/06/2023 22 09/05/2023 21 09/04/2023 21 09/02/2023 20 09/01/2023 22 Creatinine (mg/dL) Date Value 09/06/2023 1.02 09/05/2023 0.94 09/04/2023 1.16 09/02/2023 0.98 09/01/2023 0.80 Lab Results Component Value Date NEUTP 79.6 09/05/2023 ABSNEUT 6.04 09/05/2023 LYMPHP 14.1 09/05/2023 ABSLYMPH 1.07 09/05/2023 ABSMONO 0.40 09/05/2023 EODINP 0.5 09/05/2023 ABSEOSIN 0.04 09/05/2023 BASOP 0.1 09/05/2023 ABSBASO <0.03 09/05/2023 Lab Results Component Value Date PLT 237 09/06/2023 HB 11.7 09/06/2023 HCT 35.6 09/06/2023 ALB 3.5 09/01/2023 CA 9.1 09/06/2023 TBILI 1.5 09/01/2023 ALKPHOS 174 09/01/2023 AST 25 09/01/2023 GLUC 183 09/06/2023 BUN 22 09/06/2023 NA 137 09/06/2023 K 3.8 09/06/2023 CHLOR 99 09/06/2023 CO2 35 09/06/2023 ANION 3 09/06/2023 ALT 9 09/01/2023 No results found for: "WSR", "CRP", IGG No results found for: "USCRP" No results found for: "CHOL" No results found for: "LDL" No results found for: "HDL" No results found for: "TG" No results found for: "HBA1C" Impression/Recommend ations Mechanical fall Sliver subdural hematoma Post head injury Concussion Orthostatic hypotension Dizziness due to above 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 Follow-up with neurology 1 to 2 weeks for further evaluation regarding the hydrocephalus and the subdural hematoma. Would recommend repeat scan as per neurosurgery Consider follow-up neurosurgery for subdural hematoma DATE: September 06, 2023 TIME: 4:02 PM [facility] CONSULT HNO ID: [id number] Author: CHRISTIANO FARRAR MD Service: Neurosurgery Author Type: Nurse Practitioner Type: Consults Filed: 09/12/2023 16:23 Note Text: Attestation signed by Christiano Farrar MD at 09/12/2023 4:23 PM I reviewed and agree with Carri cosme CONSULT: NEUROSURGERY PATIENT NAME: Marcia Rooney DATE of SERVICE: 09/06/2023 TIME of SERVICE: 6:45 AM REASON FOR CONSULT: SDH REQUESTING PHYSICIAN: Aarti Ortiz PA PRIMARY CARE PHYSICIAN: Isaiah Roldan DO HPI: Ms. Rooney is a 77 year old female who presents to [facility] ED 6 days ago on 08/31. She was at home up in the bathroom when she felt dizzy and fell to the ground. She denies any loss of consciousness or the use of blood thinners. She was brought into the ED for further evaluation. Her initial head CT was negative for any acute intracranial hemorrhage, but had large left posterior scalp hematoma. An MRI brain was ordered due to dizziness and showed small right SDH without mass effect. Imaging reviewed by Dr. Farrar. No acute neurosurgical intervention recommended. Patient seen and examined at bedside this AM. She is resting comfortably in bed. Pain controlled. No overnight events. She denies chest pain, shortness of breath, nausea, vomiting, diarrhea. She denies any headaches or visual changes including double vision, blurry vision. She denies any seizure-like activity or weakness. She is AANDOx3, follows commands, moves all extremities x4. Vitals stable. Neuro intact. ASSESSMENT AND PLAN: - 77 year old female who presents with SDH - No acute neurosurgical intervention recommended - Imaging reviewed by Dr. Farrar - Pain control - BP control - PT/OT - Continue medical management per the primary team - Please call with any questions - We will sign off - Case and POC discussed with Aarti Pretty, and RN PAST MEDICAL HISTORY: PAST MEDICAL HISTORY Diagnosis Date Diabetes (HCC) PAST SURGICAL HISTORY: No past surgical history on file. FAMILY HISTORY: No family history on file. SOCIAL HISTORY: Social History Tobacco Use Smoking status: Former Packs/day: .5 Types: Cigarettes Substance Use Topics Alcohol use: Not Currently Drug use: Never MEDICATIONS: Prior to Admission Medications: buPROPion XL (WELLBUTRIN XL) 150 mg 24 hr tablet, Take 150 mg by mouth once daily., Disp: , Rfl: , Unknown pioglitazone (ACTOS) 30 mg tablet, Take 30 mg by mouth once daily., Disp: , Rfl: , Unknown bumetanide (BUMEX) 1 mg tablet, Take 1 mg by mouth once daily., Disp: , Rfl: , Unknown SURESH GOMEZ U-300 INSULIN 300 unit/mL (1.5 mL), Inject 30 Units subcutaneously two times a day., Disp: , Rfl: , Unknown levothyroxine (SYNTHROID) 150 mcg tablet, Take 150 mcg by mouth daily before breakfast., Disp: , Rfl: , Unknown venlafaxine ER (EFFEXOR XR) 37.5 mg 24 hr capsule, Take 37.5 mg by mouth once daily., Disp: , Rfl: , Unknown Current Facility-Administere d Medications Medication Dose Route Frequency oxyCODONE IR 5 mg tab(s) (ROXICODONE) 5 mg ORAL q 4 H PRN dextrose 40 % 15 g 15 g ORAL PRN Or glucagon 1 mg injection 1 mg INTRAMUSCULAR PRN Or dextrose 10% iv bolus 12.5 g INTRAVENOUS PRN NaCl 0.9% iv flush bag 20 mL INTRAVENOUS PRN bumetanide 1 mg tab(s) (BUMEX) 1 mg ORAL DAILY buPROPion XL 150 mg tab(s) (WELLBUTRIN XL) 150 mg ORAL DAILY venlafaxine ER 37.5 mg cap(s) (EFFEXOR XR) 37.5 mg ORAL DAILY levothyroxine 150 mcg tab(s) (SYNTHROID) 150 mcg ORAL BEFORE BREAKFAST DAILY acetaminophen 1,000 mg tab(s) (TYLENOL) 1,000 mg ORAL q 8 H insulin lispro injection (rapid acting) (ADMElog) SUBCUTANEOUS w MEALS insulin lispro injection (rapid acting) (ADMElog) SUBCUTANEOUS AT BEDTIME NaCl 0.9% iv infusion 50 mL/hr INTRAVENOUS CONTINUOUS midodrine 5 mg tab(s) (PROAMITINE) 5 mg ORAL q 8 H prochlorperazine 5 mg injection (COMPAZINE) 5 mg INTRAVENOUS q 6 H PRN ALLERGIES: ALLERGIES No Known Allergies PHYSICAL EXAM: Patient Vitals for the past 24 hrs: BP Temp Temp src Pulse Resp SpO2 Weight 09/06/23 1426 103/58 36.6 ?C (97.9 ?F) Oral 85 18 92 % -- 09/06/23 1346 122/63 -- -- 95 -- -- -- 09/06/23 0625 134/68 36.9 ?C (98.4 ?F) Oral 73 19 92 % -- 09/06/23 0010 -- -- -- -- -- -- 81.2 kg (179 lb 1.6 oz) 09/05/23 2355 126/57 37 ?C (98.6 ?F) Oral 80 21 92 % -- 09/05/23 2147 135/64 -- -- 75 -- -- -- Body mass index is 28.05 kg/m?. GENERAL: Alert, awake, opens eyes spontaneously, cooperative, no distress, normal voice, speech clear, normal affect EYES: PERRLA 3 mm brisk RESP: RA, no respiratory distress, regular breathing, rate and effort CARDIAC: Regular rate and rhythm, peripheral pulses palpable, no edema GI: Abdomen soft, non-tender, non-distended NEURO: AANDOx3, follows commands, memory intact, fund of knowledge, CN II- (more content not included)... [facility] THERAPY NTon 09-06-2023 THERAPY NT HNO ID: [id number] Author: ROCKY ALFARO COTA/L Service: Occupational Therapy Author Type: Cutter Operator Tile Type: Therapy (PT/OT/Speech/Resp) Filed: 09/06/2023 14:18 Note Text: Attestation signed by Isreal Mccullough OTR/L at 09/06/2023 3:08 PM I reviewed and agree with the documentation corresponding to this therapy visit. SIGNATURE: DALJIT Gant DATE: September 06, 2023 TIME: 3:08 PM Occupational Therapy Treatment Summary SERVICE DATE: 09/06/2023 SERVICE TIME: 1351 to 1409 ROOM: [place] [address] OT 6 Clicks Score: 16 DISCHARGE RECOMMENDATIONS Subacute/SNF Recommended Discharge Disposition Comments: pt presents limited by dizziness limiting safety. 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 ASSESSMENT Response to Therapy Interventions: Low Activity Tolerance, Limited Participation, Requires Additional Time to Complete Activities, Requires Encouragement to Complete Activities, Slow Progression with ADLs/IADLs, Slow Progression with Functional Activities/Skills, Needs Frequent Redirection or Reinstruction put forth good effort, req assist for all transfers / adls and is at a risk for flls PRECAUTIONS Fall Risk, Bed/Chair Alarm, Lines/Tubes/Drains orthostatic + primafit CURRENT HOSPITAL COURSE fall resulting in L posterior scalp hematoma Relevant Past Medical History: diabetes HOME LIVING Patient Lives With: Self/Alone Assistance Available: PRN, Other: See Comment Comments: Son lives nearby and bestfriend lives next door Entry To Home: Stairs, With Rail Number Of Stairs Into Home: 0 Number Of Stairs To Bed/Bath: 0 Tub/Shower Type: tub/shower Laundry: laundry down the shelton Equipment Owned: Cane, Walker- Wheeled PRIOR FUNCTIONAL LEVEL Within Functional Limits pt reports independence with ADLs, IADLs, denies device use; notes falling once standing on command Baseline Cognition: Oriented to self, Oriented to place, Oriented to time, Oriented to situation SUBJECTIVE im sitting in a puddle" noted patient primafit not secure COGNITION Orientation Deficits: Not oriented to Time Responsiveness: Awake Follows Commands: 2-step Commands, Cueing Needed Cueing to Follow Commands: Minimum Attention Deficits: Distractible Memory Deficits: Short Term Executive Function Deficits: Insight to Deficits, Problem Solving, Safety Awareness, Judgement THERAPY DIAGNOSIS Decreased activities of daily living (ADL) TREATMENT INTERVENTIONS Self Detention Management (27338) Timed Code Treatment (minutes): 18 Skilled Treatment Time (minutes): 18 TRAINING AND EDUCATION PROVIDED Activity Adaptation/Compensat ory Strategies, Bed Mobility, Benefits of In-Hospital Mobility, Edema Management, Discharge Planning, Grooming Tasks, Functional Mobility Involving ADLs, Insight into Deficits, Lower Extremity Dressing, Lower Extremity Bathing, Precautions/Restrict ions, Positioning, Role of Occupational Therapy, Safety/Judgment, Sitting Balance to Improve [place] with ADLs/Self-Care, Transfer - Sit to Stand, Transfer - Toilet/Commode THERAPEUTIC SKILLS USED Activity Dosing, Cuing Tactile, Cuing Verbal, Cuing Visual FUNCTIONAL STATUS Activities of Daily Living Assist Level Additional Information Feeding Set Up Grooming Minimal Assistance Bathing Upper Body Minimal Assistance Bathing Lower Body Moderate Assistance Dressing Upper Body Minimal Assistance Dressing Lower Body Moderate Assistance, Additional Information threading fresh depends over b feet and pulling up same Toileting Moderate Assistance Mobility Assist Level Additional Information Bed Mobility Rolling: Minimal Assistance, Additional Information to right Supine To Sit: Minimal Assistance good use of rails Sit To Supine: Minimal Assistance Sit to Stand Moderate Assistance, Additional Information cues for pushing up Stand to Sit Moderate Assistance, Additional Information cues for reaching back Bed to Chair Moderate Assistance, Additional Information Bed To Chair Transfer Type: Stepping Bed To Chair Transfer Equipment: Wheeled Walker slow paced Toilet/Commode Moderate Assistance, Additional Information Shower Functional Mobility Moderate Assistance Functional Mobility Device: Wheeled Walker, Other: See Comment (Gait belt) GOALS Patient will demonstrate progress with self-care, cognitive and/or coping needs identified to allow safe discharge to home with available support and/or physical assistance. Grooming with: Modified Independent Upper Body Bathing with: Mo (more content not included)... Normal [facility] Basic metabolic 2000 panelon 09-05-2023 Anion gap [Moles/Vol] mmol/L Low 5-16 [facility] Comment on above: Order Comment: Speci men Type: URINE SPECIMEN Ordering Facility: [facility] Address: [address] [place] [address] Performed By: #### 2 4356-8 #### [facility] CLIA [id number] [address] [place] [address] [place] Calcium [Mass/Vol] 9.4 mg/dL Normal 8.5-10.5 [facility] Comment on above: Order Comment: Speci men Type: URINE SPECIMEN Ordering Facility: [facility] Address: [address] [place] [address] Performed By: #### 2 4356-8 #### [facility] CLIA [id number] [address] [place] [address] [place] Chloride [Moles/Vol] 101 mmol/L Normal 98-107 [facility] Comment on above: Order Comment: Speci men Type: URINE SPECIMEN Ordering Facility: [facility] Address: [address] [place] [address] Performed By: #### 2 4356-8 #### [facility] CLIA [id number] [address] [place] [address] [place] CO2 [Moles/Vol] 35 mmol/L High 21-32 [facility] Comment on above: Order Comment: Speci men Type: URINE SPECIMEN Ordering Facility: [facility] Address: [address] [place] [address] Performed By: #### 2 4356-8 #### [facility] CLIA [id number] [address] [place] [address] [place] Creatinine [Mass/Vol] 0.94 mg/dL Normal 0.51-0.95 [facility] Comment on above: Order Comment: Speci men Type: URINE SPECIMEN Ordering Facility: [facility] Address: [address] [place] [address] Result Comment: Jacqueline ents receiving either N-Acetylcysteine (NAC) or Metamizole prior to venipuncture, may have falsely depressed results. Performed By: #### 2 4356-8 #### [facility] CLIA [id number] [address] [place] [address] Creatinine and Glomerular filtration rate.predicted panel (S/P/Bld) 63 mL/min/1.73m??? Normal >=60 [facility] Comment on above: Order Comment: Speci men Type: URINE SPECIMEN Ordering Facility: [facility] Address: [address] [place] [address] Result Comment: Paula mated Glomerular Filtration Rate (eGFR) is calculated using the 2020 CKD-EPI creatinine equation. This equation utilizes serum creatinine, sex, and age as parameters. The creatinine assay has traceable calibration to isotope dilution-mass spectrometry. Refer to KDIGO guidelines for clinical interpretation. In patients with unstable renal function, e.g. those with acute kidney injury, the eGFR may not accurately reflect actual GFR. Performed By: #### 2 4356-8 #### [facility] CLIA [id number] [address] [place] [address] [place] Glucose [Mass/Vol] 102 mg/dL High 70-100 [facility] Comment on above: Order Comment: Speci men Type: URINE SPECIMEN Ordering Facility: [facility] Address: [address] [place] [address] Result Comment: The [place] [employer] (ADA) provides guidance for cutoff values for fasting glucose and random glucose. The ADA defines fasting as no caloric intake for at least 8 hours. Fasting plasma glucose results between 100 to 125 mg/dL indicate increased risk for diabetes (prediabetes). Fasting plasma glucose results greater than or equal to 126 mg/dL meet the criteria for diagnosis of diabetes. In the absence of unequivocal hyperglycemia, results should be confirmed by repeat testing. In a patient with classic symptoms of hyperglycemia or hyperglycemic crisis, random plasma glucose results greater than or equal to 200 mg/dL meet the criteria for diagnosis of diabetes. Reference: Standards of Medical Care in Diabetes 2016, [place] [employer]. Diabetes Care. 2016.39(Suppl 1). Results may be falsely elevated after the administration of Sulfapyridine. Results may be falsely depressed after the administration of Sulfasalazine. Performed By: #### 2 4356-8 #### [facility] CLIA [id number] [address] [place] [address] [place] Potassium [Moles/Vol] 3.5 mmol/L Normal 3.5-5.1 [facility] Comment on above: Order Comment: Speci men Type: URINE SPECIMEN Ordering Facility: [facility] Address: [address] [place] [address] Performed By: #### 2 4356-8 #### [facility] CLIA [id number] [address] [place] [address] [place] Sodium [Moles/Vol] 137 mmol/L Normal 136-145 [facility] Comment on above: Order Comment: Speci men Type: URINE SPECIMEN Ordering Facility: [facility] Address: [address] [place] [address] Performed By: #### 2 4356-8 #### [facility] CLIA [id number] [address] [place] [id number] [place] Urea nitrogen [Mass/Vol] 21 mg/dL Normal 7- [facility] Comment on above: Order Comment: Speci men Type: URINE SPECIMEN Ordering Facility: [facility] Address: [address] [place] [address] Performed By: #### 2 4356-8 #### [facility] CLIA [id number] [address] [place], [place] [address] [place] CBC W Auto Differential pane l (Bld)on 09-05-2023 Basophils (Bld) [#/Vol] 10*3/uL Normal <0.11 [facility] Comment on above: Order Comment: Speci men Type: BLOOD SPECIMENOrdering Facility: [facility] Address: [address] [place] [address] Performed By: #### 5 7021-8 ####[facility] [id number] [place] [id number] [place] Basophils/100 WBC (Bld) 0.1 % Normal [facility] Comment on above: Order Comment: Speci men Type: BLOOD SPECIMENOrdering Facility: [facility] Address: [address] [place] [address] Performed By: #### 5 7021-8 ####[facility] [id number] [address] [place] Differential cell count method Nom (Bld) Auto Normal [facility] Comment on above: Order Comment: Speci men Type: BLOOD SPECIMENOrdering Facility: [facility] Address: [address] [place] [address] Performed By: #### 5 7021-8 ####[facility]ORY[facility]IA [id number] [place] [address] [place] Eosinophils (Bld) [#/Vol] 0.04 10*3/uL Normal <0.46 [facility] Comment on above: Order Comment: Speci men Type: BLOOD SPECIMENOrdering Facility: [facility] Address: [address] [place] [address] Performed By: #### 5 7021-8 ####[facility]ORY[facility] [id number] [place] [id number] [place] Eosinophils/100 WBC (Bld) 0.5 % Normal [facility] Comment on above: Order Comment: Speci men Type: BLOOD SPECIMENOrdering Facility: [facility] Address: [address] [place] [address] Performed By: #### 5 7021-8 ####[facility]ORYCLIA [id number] [place] [address] [place] Erythrocyte distribution width (RBC) [Ratio] 14.3 % Normal 11.5-15.0 [facility] Comment on above: Order Comment: Speci men Type: BLOOD SPECIMENOrdering Facility: [facility] Address: [address] [place] [address] Performed By: #### 5 7021-8 ####[facility]ORYCLIA [id number] [address] [place] Hematocrit (Bld) [Volume fraction] 35.4 % Low 36.0-46.0 [facility] Comment on above: Order Comment: Speci men Type: BLOOD SPECIMENOrdering Facility: [facility] Address: [address] [place] [address] Performed By: #### 5 7021-8 ####[facility]ORYCLIA [id number] [place] [address] [place] Hemoglobin (Bld) [Mass/Vol] 11.9 g/dL Normal 11.5-15.5 [facility] Comment on above: Order Comment: Speci men Type: BLOOD SPECIMENOrdering Facility: [facility] Address: [address] [place] [address] Performed By: #### 5 7021-8 ####[facility]ORYCLIA [id number] [place] [address] [place] Immature granulocytes (Bld) [#/Vol] 0.03 10*3/uL Normal <0.10 [facility] Comment on above: Order Comment: Speci men Type: BLOOD SPECIMENOrdering Facility: [facility] Address: [address] [place] [address] Performed By: #### 5 7021-8 ####[facility]ORYCLIA [id number] [place] [id number] [place] [facility] Immature granulocytes/100 WBC (Bld) 0.4 % Normal [facility] Comment on above: Order Comment: Speci men Type: BLOOD SPECIMENOrdering Facility: [facility] Address: [address] [place] [address] Performed By: #### 5 7021-8 ####[facility]ORYCLIA [id number] [address] [place] [facility] Lymphocytes (Bld) [#/Vol] 1.07 10*3/uL Normal 1.00-4.00 [facility] Comment on above: Order Comment: Speci men Type: BLOOD SPECIMENOrdering Facility: [facility] Address: [address] [place] [address] Performed By: #### 5 7021-8 ####[facility]ORYCLIA [id number] [address] Lymphocytes/100 WBC (Bld) 14.1 % Normal [facility] Comment on above: Order Comment: Speci men Type: BLOOD SPECIMENOrdering Facility: [facility] Address: [address] [place] [address] Performed By: #### 5 7021-8 ####[facility]ORYCLIA [id number] [place] [id number] [place] MCH (RBC) [Entitic mass] 30.8 pg Normal 26.0-34.0 [facility] Comment on above: Order Comment: Speci men Type: BLOOD SPECIMENOrdering Facility: [facility] Address: [address] [place] [address] Performed By: #### 5 7021-8 ####[facility]ORYCLIA [id number] [place] [id number] [place] MCHC (RBC) [Mass/Vol] 33.6 g/dL Normal 30.5-36.0 [facility] Comment on above: Order Comment: Speci men Type: BLOOD SPECIMENOrdering Facility: [facility] Address: [address] [place] [address] Performed By: #### 5 7021-8 ####[facility]ORYCLIA [id number] [place] [address] [place] MCV (RBC) [Entitic vol] 91.7 fL Normal 80.0-100.0 [facility] Comment on above: Order Comment: Speci men Type: BLOOD SPECIMENOrdering Facility: [facility] Address: [address] [place] [address] Performed By: #### 5 7021-8 ####[facility]ORYCLIA [id number] [place] [address] [place] Monocytes (Bld) [#/Vol] 0.40 10*3/uL Normal <0.87 [facility] Comment on above: Order Comment: Speci men Type: BLOOD SPECIMENOrdering Facility: [facility] Address: [address] [place] [address] Performed By: #### 5 7021-8 ####[facility]ORYCLIA [id number] [address] [place] Monocytes/100 WBC (Bld) 5.3 % Normal [facility] Comment on above: Order Comment: Speci men Type: BLOOD SPECIMENOrdering Facility: [facility] Address: [address] [place] [address] Performed By: #### 5 7021-8 ####[facility]ORYCLIA [id number] [place] [address] [place] Neutrophils (Bld) [#/Vol] 6.04 10*3/uL Normal 1.45-7.50 [facility] Comment on above: Order Comment: Speci men Type: BLOOD SPECIMENOrdering Facility: [facility] Address: [address] [place] [address] Performed By: #### 5 7021-8 ####[facility]ORYCLIA [id number] [place] [id number] [place] Neutrophils/100 WBC (Bld) 79.6 % Normal [facility] Comment on above: Order Comment: Speci men Type: BLOOD SPECIMENOrdering Facility: [facility] Address: [address] [place] [address] Performed By: #### 5 7021-8 ####[facility]ORYCLIA [id number] [place] [address] [place] Nucleated RBC (Bld) [#/Vol] 10*3/uL Normal <0.01 [facility] Comment on above: Order Comment: Speci men Type: BLOOD SPECIMENOrdering Facility: [facility] Address: [address] [place] [address] Performed By: #### 5 7021-8 ####[facility]ORYCLIA [id number] [place] [address] [place] Nucleated RBC/100 WBC (Bld) [Ratio] 0.0 /100 WBC Normal [facility] Comment on above: Order Comment: Speci men Type: BLOOD SPECIMENOrdering Facility: [facility] Address: [address] [place] [address] Performed By: #### 5 7021-8 ####[facility]ORYCLIA [id number] [place] [address] [place] Platelet mean volume (Bld) [Entitic vol] 9.3 fL Normal 9.0-12.7 [facility] Comment on above: Order Comment: Speci men Type: BLOOD SPECIMENOrdering Facility: [facility] Address: [address] [place] [address] Performed By: #### 5 7021-8 ####[facility]ORYCLIA [id number] [place] [address] [place] Platelets (Bld) [#/Vol] 233 10*3/uL Normal 150-400 [facility] Comment on above: Order Comment: Speci men Type: BLOOD SPECIMENOrdering Facility: [facility] Address: [address] [place] [id number] Performed By: #### 5 7021-8 ####[facility]ORYCLIA [id number] [address] RBC (Bld) [#/Vol] 3.86 10*6/uL Low 3.90-5.20 [facility] Comment on above: Order Comment: Speci men Type: BLOOD SPECIMENOrdering Facility: [facility] Address: [address] [place] [address] Performed By: #### 5 7021-8 ####[facility]ORYCLIA [id number] [place] [id number] [facility] WBC (Bld) [#/Vol] 7.59 10*3/uL Normal 3.70-11.00 [facility] Comment on above: Order Comment: Speci men Type: BLOOD SPECIMENOrdering Facility: [facility] Address: [address] [place] [address] Performed By: #### 5 7021-8 ####[facility]ORYCLIA [id number] [address] MRI BRAIN WO IVCONon 024 MRI BRAIN WO IVCON * * *Final Report* * * DATE OF EXAM: Sep 05 2023 11:51AM [facility] 0294 - MRI BRAIN WO IVCON / PROCEDURE REASON: Dizziness, non-specific * * * * Physician Interpretation * * * * COMPARISONS: Head CT from 08/31/2023. HISTORY: Dizziness. TECHNIQUE: MRI brain without contrast. MQ: [id number]. RESULT: MRI BRAIN: Acute abnormality: Right convexity subdural hematoma. Expected evolution of left parietal scalp hematoma with normal underlying brain/bone (better appreciated on recent CT exam). However, better appreciated than CT is right convexity subdural hematoma extending along entire convexity with maximum thickness in right parieto-occipital region at 3 mm without underlying brain indentation or mass effect. No associated subarachnoid blood byproducts. No additional acute intracranial abnormality or finding. Left ethmoid and maxillary sinuses mucosal thickening with air-fluid level at left maxillary sinus indicating acute on chronic sinusitis. No restricted diffusion concerning for acute ischemia. No susceptibility concerning for acute hemorrhage. Stable remaining sulci, gyri, ventricles, CSF spaces, brain, bones and skull base with senescent volume loss, microvascular ischemia, accentuation of CSF spaces and ventricular dilation. Ventricular dilation is out of proportion to senescent changes and possibility of normal pressure hydrocephalus should be considered and correlated clinically. No mass effect or collections. IMPRESSION: 1. Right convexity 3 mm subdural hematoma. 2. Expected evolution of left parietal scalp hematoma. 3. Possibility of NPH should be considered clinically. CRITICAL TEST/RESULTS: Acuity: Critical Finding: Acute intracranial hemorrhage Communication: Communicated with Dr. Eugenie Vo MD on 09/05/2023 11:57 AM via verbal communication. --END OF FINDING-- Fitness/Wellness Director: VLAD Transcribe Date/Time: Sep 05 2023 11:51A Dictated by : JODIE MCADAMS MD This examination was interpreted and the report reviewed and electronically signed by: JODIE MCADAMS MD on Sep 05 2023 11:57AM EST [id number] CN CRITICAL!! Invalid Interpretation Code [facility] THERAPY NTon 09-05-2023 THERAPY NT HNO ID: [id number] Author: ROCKY ALFARO COTA/L Service: Occupational Therapy Author Type: Cutter Operator Tile Type: Therapy (PT/OT/Speech/Resp) Filed: 09/05/2023 14:56 Note Text: Attestation signed by Dahiana Galvin OTR/L at 09/05/2023 4:17 PM I reviewed and agree with the documentation corresponding to this therapy visit. SIGNATURE: DALJIT Acosta DATE: September 05, 2023 TIME: 4:17 PM OCCUPATIONAL THERAPY MISSED VISIT SERVICE DATE: 09/05/2023 SERVICE TIME: 1454 ROOM: [id number] Patient not seen due to Patient Not Available (patient in chair eating, per nurse lania patient has a new brain bleed. will cont to check for therapy appropriateness as neurosurgery has been consulted). SIGNATURE: JENA Jovel PATIENT NAME: Marcia Rooney DATE: September 05, 2023 TIME: 2:56 PM Normal [facility] Basic metabolic 2000 panelon 09-04-2023 Anion gap [Moles/Vol] 5 mmol/L Normal 5-16 [facility] Comment on above: Order Comment: Specjudah cazares Type: BLOOD SPECIMENOrdering Facility: [facility] Address: [address] [place] [address] Performed By: #### 2 4321-2 ####[facility] LABORATORYCLIA [id number] [place] [address] [place] Calcium [Mass/Vol] 9.3 mg/dL Normal 8.5-10.5 [facility] Comment on above: Order Comment: Sanjuana cazares Type: BLOOD SPECIMENOrdering Facility: [facility] Address: [address] [place] [address] Performed By: #### 2 4321-2 ####[facility] LABORATORYCLIA [id number] [place] [address] [place] Chloride [Moles/Vol] 96 mmol/L Low 98-107 [facility] Comment on above: Order Comment: Sanjuana cazares Type: BLOOD SPECIMENOrdering Facility: [facility] Address: [address] [place] [address] Performed By: #### 2 4321-2 ####[facility] LABORATORYCLIA [id number] [place] [address] [place] CO2 [Moles/Vol] 34 mmol/L High 21-32 [facility] Comment on above: Order Comment: Sanjuana cazares Type: BLOOD SPECIMENOrdering Facility: [facility] Address: [address] [place] [address] Performed By: #### 2 4321-2 ####[facility] LABORATORYCLIA [id number] [place] [id number] [place] Creatinine [Mass/Vol] 1.16 mg/dL High 0.51-0.95 [facility] Comment on above: Order Comment: Speci men Type: BLOOD SPECIMENOrdering Facility: [facility] Address: [address] [place] [address] Result Comment: Jacqueline ents receiving either N-Acetylcysteine (NAC) or Metamizole prior to venipuncture, may have falsely depressed results. Performed By: #### 2 4321-2 ####[facility] LABORATORYCLIA [id number] [place] [address] [place] [facility] [place] Creatinine and Glomerular filtration rate.predicted panel (S/P/Bld) 49 mL/min/1.73m??? Low >=60 [facility] Comment on above: Order Comment: Sanjuana cazares Type: BLOOD SPECIMENOrdering Facility: [facility] Address: [address] [place] [address] Result Comment: Paula mated Glomerular Filtration Rate (eGFR) is calculated using the 2020 CKD-EPI creatinine equation. This equation utilizes serum creatinine, sex, and age as parameters. The creatinine assay has traceable calibration to isotope dilution-mass spectrometry. Refer to KDIGO guidelines for clinical interpretation. In patients with unstable renal function, e.g. those with acute kidney injury, the eGFR may not accurately reflect actual GFR. Performed By: #### 2 4321-2 ####[facility] LABORATORYCLIA [id number] [place] [address] [place] Glucose [Mass/Vol] 222 mg/dL High 70-100 [facility] Comment on above: Order Comment: Sanjuana debora Type: BLOOD SPECIMENOrdering Facility: [facility] Address: [address] [place] [address] Result Comment: The [place] [employer] (ADA) provides guidance for cutoff values for fasting glucose and random glucose. The ADA defines fasting as no caloric intake for at least 8 hours. Fasting plasma glucose results between 100 to 125 mg/dL indicate increased risk for diabetes (prediabetes). Fasting plasma glucose results greater than or equal to 126 mg/dL meet the criteria for diagnosis of diabetes. In the absence of unequivocal hyperglycemia, results should be confirmed by repeat testing. In a patient with classic symptoms of hyperglycemia or hyperglycemic crisis, random plasma glucose results greater than or equal to 200 mg/dL meet the criteria for diagnosis of diabetes. Reference: Standards of Medical Care in Diabetes 2016, [place] [employer]. Diabetes Care. 2016.39(Suppl 1). Results may be falsely elevated after the administration of Sulfapyridine. Results may be falsely depressed after the administration of Sulfasalazine. Performed By: #### 2 4321-2 ####[facility] LABORATORYCLIA [id number] [place] [address] [place] Potassium [Moles/Vol] 4.0 mmol/L Normal 3.5-5.1 [facility] Comment on above: Order Comment: Speci men Type: BLOOD SPECIMENOrdering Facility: [facility] Address: [address] [place] [address] Performed By: #### 2 4321-2 ####[facility] LABORATORYCLIA [id number] [place] [address] [place] Sodium [Moles/Vol] 135 mmol/L Low 136-145 [facility] Comment on above: Order Comment: Speci men Type: BLOOD SPECIMENOrdering Facility: [facility] Address: [address] [place] [address] Performed By: #### 2 4321-2 ####[facility] LABORATORYCLIA [id number] [place] [address] [place] Urea nitrogen [Mass/Vol] 21 mg/dL Normal 7-26 [facility] Comment on above: Order Comment: Speci men Type: BLOOD SPECIMENOrdering Facility: [facility] Address: [address] [place] [id number] Performed By: #### 2 4321-2 ####[facility] LABORATORYCLIA [id number] [place] [address] [place] CBC W Auto Differential pane l (Bld)on 09-04-2023 Basophils (Bld) [#/Vol] 10*3/uL Normal <0.11 [facility] Comment on above: Order Comment: Speci men Type: BLOOD SPECIMEN [facility] Address: [address] [place] [address] Performed By: #### 1 9123-9, 96196-2 #### [facility] CLIA [id number] [address] [place] [address] [place] Basophils/100 WBC (Bld) 0.2 % Normal [facility] Comment on above: Order Comment: Speci men Type: BLOOD SPECIMEN Ordering [facility] Address: [address] [place] [address] Performed By: #### 1 9123-9, 68509-1 #### [facility] CLIA [id number] [address] [place] [address] [place] Differential cell count method Nom (Bld) Auto Normal [facility] Comment on above: Order Comment: Speci men Type: BLOOD SPECIMEN [facility]ing [facility] Address: [address] [place] [address] Performed By: #### 1 9123-9, 74058-6 #### [facility] CLIA [id number] [address] [place] [address] [place] Eosinophils (Bld) [#/Vol] 0.04 10*3/uL Normal <0.46 [facility] Comment on above: Order Comment: Speci men Type: BLOOD SPECIMEN Ordering [facility] Address: [address] [place] [address] Performed By: #### 1 9123-9, 50556-9 #### [facility] CLIA [id number] [address] [place] [address] [place] Eosinophils/100 WBC (Bld) 0.6 % Normal [facility] Comment on above: Order Comment: Speci men Type: BLOOD SPECIMEN Ordering Facility[facility] Address: [address] [place] [id number] Performed By: #### 1 23-9, #### [facility] CLIA [id number] [address] [place], [place] [address] [place] Erythrocyte distribution width (RBC) [Ratio] 14.0 % Normal 11.5-15.0 [facility] Comment on above: Order Comment: Speci men Type: BLOOD SPECIMEN [facility] Address: [address] [facility] [place] [address] Performed By: #### 1 239, #### [facility] CLIA [id number] [address] [place] [address] [place] Hematocrit (Bld) [Volume fraction] 35.4 % Low 36.0-46.0 [facility] Comment on above: Order Comment: Speci men Type: BLOOD SPECIMEN [facility] Address: [address] [place] [address] Performed By: #### 1 239, #### [facility] CLIA [id number] [address] [place] [address] [place] Hemoglobin (Bld) [Mass/Vol] 12.1 g/dL Normal 11.5-15.5 [facility] Comment on above: Order Comment: Speci men Type: BLOOD SPECIMEN [facility] Address: [address] [place] [address] Performed By: #### 1 239, #### [facility] CLIA [id number] [address] [place] [address] [place] Immature granulocytes (Bld) [#/Vol] 10*3/uL Normal <0.10 [facility] Comment on above: Order Comment: Speci men Type: BLOOD SPECIMEN [facility] Address: [address] [place] [address] Performed By: #### 1 9123-9, #### [facility] CLIA [id number] [address] [place] [address] [place] Immature granulocytes/100 WBC (Bld) 0.3 % Normal [facility] Comment on above: Order Comment: Speci men Type: BLOOD SPECIMEN Ordering Facility: [facility] Address: [address] [place] [address] Performed By: #### 1 9123-9, #### [facility] CLIA [id number] [address] [place] [address] [place] Lymphocytes (Bld) [#/Vol] 1.11 10*3/uL Normal 1.00-4.00 [facility] Comment on above: Order Comment: Speci men Type: BLOOD SPECIMEN Ordering [facility]: [facility] Address: [address] [place] [address] Performed By: #### 1 9123-9, #### [facility] CLIA [id number] [address] [place] [address] [place] Lymphocytes/100 WBC (Bld) 17.8 % Normal [facility] Comment on above: Order Comment: Speci men Type: BLOOD SPECIMEN Ordering Facility: [facility] Address: [address] [place] [address] Performed By: #### 1 9123-9, #### [facility] CLIA [id number] [address] [place] [address] [place] MCH (RBC) [Entitic mass] 31.4 pg Normal 26.0-34.0 [facility] Comment on above: Order Comment: Speci men Type: BLOOD SPECIMEN Ordering Facility: [facility] Address: [address] [place] [address] Performed By: #### 1 9123-9, #### [facility] CLIA [id number] [address] [place] [address] [place] MCHC (RBC) [Mass/Vol] 34.2 g/dL Normal 30.5-36.0 [facility] Comment on above: Order Comment: Speci men Type: BLOOD SPECIMEN Ordering Facility[facility] Address: [address] [place] [id number] Performed By: #### 1 9123-9, 22613-1 #### [facility] CLIA [id number] [address] [place] [address] [place] MCV (RBC) [Entitic vol] 91.9 fL Normal 80.0-100.0 [facility] Comment on above: Order Comment: Speci men Type: BLOOD SPECIMEN Order[facility] Address: [address] [place] [address] Performed By: #### 1 9123-9, #### [facility] CLIA [id number] [address] [place] [address] [place] Monocytes (Bld) [#/Vol] 0.37 10*3/uL Normal <0.87 [facility] Comment on above: Order Comment: Speci men Type: BLOOD SPECIMEN [facility] Address: [address] [place] [address] Performed By: #### 1 9123-9, #### [facility] CLIA [id number] [address] [place] [address] [place] Monocytes/100 WBC (Bld) 5.9 % Normal [facility] Comment on above: Order Comment: Speci men Type: BLOOD SPECIMEN Order[facility] Address: [address] [place] [address] Performed By: #### 1 9123-9, #### [facility] CLIA [id number] [address] [place] [address] [place] Neutrophils (Bld) [#/Vol] 4.70 10*3/uL Normal 1.45-7.50 [facility] Comment on above: Order Comment: Speci men Type: BLOOD SPECIMEN Order[facility] Address: [address] [place] [address] Performed By: #### 1 9123-9, #### [facility] CLIA [id number] [address] [place] [address] [place] Neutrophils/100 WBC (Bld) 75.2 % Normal [facility] Comment on above: Order Comment: Speci men Type: BLOOD SPECIMEN Ordering Facility: [facility] Address: [address] [place] [address] Performed By: #### 1 9123-9, #### [facility] CLIA [id number] [address] [place] [address] [place] Nucleated RBC (Bld) [#/Vol] 10*3/uL Normal <0.01 [facility] Comment on above: Order Comment: Speci men Type: BLOOD SPECIMEN Ordering Facility: [facility] Address: [address] [place] [address] Performed By: #### 1 9123-9, #### [facility] CLIA [id number] [address] [place] [address] [place] Nucleated RBC/100 WBC (Bld) [Ratio] 0.0 /100 WBC Normal [facility] Comment on above: Order Comment: Speci men Type: BLOOD SPECIMEN Ordering Facility: [facility] Address: [address] [place] [address] Performed By: #### 1 9123-9, #### [facility] CLIA [id number] [address] [place] [address] [place] Platelet mean volume (Bld) [Entitic vol] 9.6 fL Normal 9.0-12.7 [facility] Comment on above: Order Comment: Speci men Type: BLOOD SPECIMEN Ordering [facility]: [facility] Address: [address] [place] [address] Performed By: #### 1 9123-9, #### [facility] CLIA [id number] [address] [place] [address] [place] Platelets (Bld) [#/Vol] 225 10*3/uL Normal 150-400 [facility] Comment on above: Order Comment: Speci men Type: BLOOD SPECIMEN Ordering [facility]: [facility] Address: [address] [place] [address] Performed By: #### 1 9123-9, 87159-6 #### [facility] CLIA [id number] [address] [place], [place] [address] [facility] RBC (Bld) [#/Vol] 3.85 10*6/uL Low 3.90-5.20 [facility] Comment on above: Order Comment: Speci men Type: BLOOD SPECIMEN Ordering Facility: [facility] Address: [address] [place] [address] Performed By: #### 1 9123-9, 15096-6 #### [facility] CLIA [id number] [address] [place], [place] [address] [facility] WBC (Bld) [#/Vol] 6.25 10*3/uL Normal 3.70-11.00 [facility] Comment on above: Order Comment: Speci men Type: BLOOD SPECIMEN Order[facility] Address: [address] [place] [address] Performed By: #### 1 9123-9, 55040-8 #### [facility] CLIA [id number] [address] [place], [place] [address] [facility] ECG COMPLETEon 09-04-2023 ECG COMPLETE Ventricular Rate : 71 BPM Atrial Rate : 71 BPM P-R Interval : 170 ms QRS Duration : 134 ms Q-T Interval : 462 ms QTC Calculation(Bazett) : 502 ms Calculated P [place] : 1 degrees Calculated R [place] : 16 degrees Calculated T [place] : 18 degrees Normal sinus rhythm Right bundle branch block Abnormal ECG When compared with ECG of 31-AUG-2023 15:47, Nonspecific T wave abnormality now evident in Inferior leads Confirmed by FARHAD GUY MD ([id number]) on 09/05/2023 1:27:00 PM NAME : MARCIA ROONEY PID : [id number] : 1945 Gender : Female Race : ORD : [id number] Procedure Date : Sep 04 2023 17:37:37 Edit Date : Sep 05 2023 13:27:02 Diagnosis: Normal sinus rhythm Right bundle branch block Abnormal ECG When compared with ECG of 31-AUG-2023 15:47, Nonspecific T wave abnormality now evident in Inferior leads Confirmed by FARHAD GUY MD ([id number]) on 09/05/2023 1:27:00 PM Test Reason : HCS Location : 190 : [facility] 58 Overread By : FARHAD GUY MD Edited By : FARHAD GUY MD Referred By : , Acquired by : TMHD, Normal [facility] HIGH SENSITIVITY TROPONIN Io n 09-04-2023 Tropinin I.cardiac panel High sensitivity method 6.3 pg/mL Normal 0.0-34.0 [facility] Comment on above: Order Comment: Speci men Type: BLOOD SPECIMENOrdering Facility: [facility] Address: [address] [place] [address] Result Comment: This assay uses different antibodies than our current assay, and assays, even by the same ambulatory technologist may recognize different regions of the antibody and cannot be used interchangeably. Expect results of this assay to run higher than the previous assay. Performed By: #### H STROP ####[facility] LABORATORYCLIA [id number] [address] NUTRITIONon 09-04-2023 NUTRITION HNO ID: [id number] Author: DILMA WYLIE RD Service: ? Author Type: Registered Dietitian Type: Nutrition Filed: 09/04/2023 12:09 Note Text: NUTRITION THERAPY INITIAL ASSESSMENT SERVICE DATE: 09/04/2023 SERVICE TIME: 1100 Nutrition Assessment: Recommended Malnutrition Diagnosis: Severe Protein-Calorie Malnutrition In the context of: Chronic Illness or Injury Based on: Insufficient Energy Intake, Unintentional Weight Loss Nutrition Diagnosis: Problem: Suboptimal protein/energy intake Related to: Chronic illness As evidenced by: Anorexia, Depletion of fat/muscle stores, Food/nutrition related history, Intake records, Laboratory markers, Medical condition, Medications and treatments, Nausea, Patient/family self-report, Weight loss Estimated kilocalorie needs: [id number] Calorie Calculation Method: Lejunior-St. Jeor (with activity factor) Estimated protein needs (grams): 100-120 Grams protein determined by: 1.2 - 1.5 g/kg Care Plan: Continue current diet Supplements: Mighty Shake No Sugar Added, Boost Glucose Control Monitor and Evaluation: Meet greater than 75% of estimated needs, Monitor fluid/electrolyte balance, Monitor labs, I/Os, vital signs, weight Discharge Recommendations: Diet;Oral Supplements Diet: Continue 3-6 small frequent high protein meals daily Oral Supplements: Continue 2 carb controlled ONS daily HPI: 77-year-old lady with known history of DM type II, hypothyroidism, depression presented to the hospital after a fall at home. Noted to have left scapular hematoma. Intake History: Nutrition Intake Prior to Admission: Greater than 75% estimated energy needs greater than or equal to 1 month (Pt reports decreased appetite for several months, consuming 2 small snack sized meals daily and no ONS.) Current Nutrition Intake: Less than 75% estimated energy needs Current Intake Over time: (x4 days. Pt reports inability to consume volume of foods provided. Gets full with a couple of bites, skips meals. States she has saved foods for in between her meals to increase kcal intake.)- Discussed ONS to optimize nutrition. Diet Orders (From admission, onward) Start Ordered 08/31/23 1900 DIET CARBOHYDRATE CONTROLLED START NOW Question: Carbohydrate Control Answer: CONSISTENT CARBOHYDRATE 08/31/23 1850 Anthropometrics: Height: 170.2 cm (5' 7") Weight: 81.6 kg (179 lb 12.8 oz) Dosing Weight: 81.6 kg (179 lb 14.3 oz) Usual Weight: 99.8 kg (220 lb 0.3 oz) 07/15/23 Usual Weight Obtained From: Chart Review Body mass index is 28.16 kg/m?. Weight change percentage over time: 18% loss x 2 mo Weight Change: Clinically signficant weight loss Physical Exam: Subcutaneous fat loss: Moderate Muscle loss: Moderate Potential micronutrient deficiency: Teeth (poor oral health, missing teeth) Edema/Ascites: No edema GI Symptoms: Early satiety, Anorexia, Nausea (Zofran ordered prn/ given past 2 days) Potential Signs of Inflammation: Chronic condition DM, hypothyroid MNT Billing: $ Initial Assessment: 16-30 minutes SIGNATURE: Dilma Wylie RD PATIENT NAME: Marcia Rooney DATE: September 04, 2023 TIME: 11:00 AM [facility] THERAPY NTon 09-04-2023 THERAPY NT HNO ID: [id number] Author: SHY CHO PT, DPT Service: Physical Therapy Author Type: Physical Therapist Type: Therapy (PT/OT/Speech/Resp) Filed: 09/04/2023 13:21 Note Text: Physical Therapy Evaluation Summary SERVICE DATE: 09/04/2023 SERVICE TIME: 1125 to 1137 ROOM: [place] [address] PT 6 Clicks Score: 16 DISCHARGE RECOMMENDATIONS Subacute/SNF Recommended Discharge Disposition Comments: Pt tolerated PT eval fair. Pt remains dizzy, fatigued, and unsteady. Pt is min assistance for functional mobility with ww. Pt is limited per weakness. REcommend SNF at this time pt resides home alone Recommended Discharge Disposition Due to: decline in functional status requiring daily skilled care Recommended Discharge Equipment: Wheeled Walker ASSESSMENT Response to Therapy Interventions: Good Participation in Activities PRECAUTIONS Fall Risk, Bed/Chair Alarm orthostatic + CURRENT HOSPITAL COURSE fall resulting in L posterior scalp hematoma Relevant Past Medical History: diabetes HOME LIVING Patient Lives With: Self/Alone Assistance Available: PRN, Other: See Comment Comments: Son lives nearby and bestfriend lives next door Entry To Home: Stairs, With Rail Number Of Stairs Into Home: 0 Number Of Stairs To Bed/Bath: 0 Tub/Shower Type: tub/shower Laundry: laundry down the shelton Equipment Owned: Cane, Walker- Wheeled PRIOR FUNCTIONAL LEVEL Within Functional Limits pt reports independence with ADLs, IADLs, denies device use; notes falling once standing on command SUBJECTIVE THERAPY DIAGNOSIS Reduced mobility-other TREATMENT INTERVENTIONS Evaluation Skilled Treatment Time (minutes): 12 TRAINING AND EDUCATION PROVIDED Advanced Balance Activities, Bed Mobility, Car Transfers, Discharge Planning, Equipment, Exercise Program, Expected Functional Level, Falls Prevention, Gait Pattern, Reduction of Deviations, Precautions/Restrict ions, Role of Physical Therapy THERAPEUTIC SKILLS USED Cues for Sequencing/Proper Technique for Activity FUNCTIONAL STATUS Bed Mobility Transfers Sit To Stand: Minimal Assistance, Additional Information Slow to rise Stand To Sit: Minimal Assistance Bed to Chair Gait Minimal Assistance, Additional Information Step to gait pattern progresedt to reciprocal gait pttern, nausea and fatigue limiting Gait Device: Wheeled Walker Gait Distance (feet): 40 feet x 2 Stairs GOALS Patient will demonstrate progress to optimize functional mobility, maximize activity tolerance and endurance to maximize function upon discharge. Able to Perform HEP with: Independent Transfer Supine to/from Sit with: Modified Independent Transfer Sit to/from Stand with: Modified Independent Ambulate with: Modified Independent Distance: 50 Ambulate Up and Down Steps with: Stand By Assistance Rehab Potential: Fair Progress Toward Goals: Progressing slower than expected PLAN PT Frequency: 3 Times Per Week Treatment Interventions: Education Plan for Next Visit: Gait Training SIGNATURE: Shy Cho PT, DPT PATIENT NAME: Marcia Rooney DATE: September 04, 2023 TIME: 1:21 PM [facility] THERAPY NT HNO ID: [id number] Author: HENRIK CABA COTA/L Service: Occupational Therapy Author Type: Cutter Operator Tile Type: Therapy (PT/OT/Speech/Resp) Filed: 09/04/2023 11:30 Note Text: Attestation signed by Dahiana Galvin OTR/L at 09/04/2023 12:34 PM I reviewed and agree with the documentation corresponding to this therapy visit. SIGNATURE: DALJIT Acosta DATE: September 04, 2023 TIME: 12:34 PM Occupational Therapy Treatment Summary SERVICE DATE: 09/04/2023 SERVICE TIME: 949 to 1052 ROOM: [id number] OT 6 Clicks Score: 16 DISCHARGE RECOMMENDATIONS Subacute/SNF Recommended Discharge Disposition Comments: pt presents limited by dizziness limiting safety. 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 ASSESSMENT Response to Therapy Interventions: Low Activity Tolerance, Labile Vital Signs Pt with Fair tolerance this am. Pt noted with Minimal confusion. Pt still reporting Nausea throughout therapy session. Pt required hands on assist for ADL's and functional transfers/mobility. PRECAUTIONS Fall Risk, Bed/Chair Alarm orthostatic + CURRENT HOSPITAL COURSE fall resulting in L posterior scalp hematoma Relevant Past Medical History: diabetes HOME LIVING Patient Lives With: Self/Alone Assistance Available: PRN, Other: See Comment Comments: Son lives nearby and bestfriend lives next door Entry To Home: Stairs, With Rail Number Of Stairs Into Home: 0 Number Of Stairs To Bed/Bath: 0 Tub/Shower Type: tub/shower Laundry: laundry down the shelton Equipment Owned: Cane, Walker- Wheeled PRIOR FUNCTIONAL LEVEL Within Functional Limits pt reports independence with ADLs, IADLs, denies device use; notes falling once standing on command Baseline Cognition: Oriented to self, Oriented to place, Oriented to time, Oriented to situation SUBJECTIVE Am I sitting on the toilet?" RE: Pt sitting in bedside chair. COGNITION Orientation Deficits: Confused Responsiveness: Alert, Awake Follows Commands: 2-step Commands Cueing to Follow Commands: Minimum Attention Deficits: Distractible Memory Deficits: Short Term Executive Function Deficits: Safety Awareness THERAPY DIAGNOSIS Decreased activities of daily living (ADL) TREATMENT INTERVENTIONS Therapeutic Activity (93701), Self Detention Management (85411) Timed Code Treatment (minutes): 63 Skilled Treatment Time (minutes): 63 TRAINING AND EDUCATION PROVIDED Activity Adaptation/Compensat ory Strategies, Bed Mobility, Benefits of In-Hospital Mobility, Edema Management, Discharge Planning, Grooming Tasks, Functional Mobility Involving ADLs, Insight into Deficits, Lower Extremity Dressing, Lower Extremity Bathing, Precautions/Restrict ions, Positioning, Role of Occupational Therapy, Safety/Judgment, Sitting Balance to Improve [place] with ADLs/Self-Care, Transfer - Sit to Stand, Transfer - Toilet/Commode THERAPEUTIC SKILLS USED Activity Dosing, Cuing Tactile, Cuing Verbal, Cuing Visual FUNCTIONAL STATUS Activities of Daily Living Assist Level Additional Information Feeding Set Up Grooming Minimal Assistance Bathing Upper Body Minimal Assistance Bathing Lower Body Moderate Assistance Dressing Upper Body Minimal Assistance Dressing Lower Body Moderate Assistance, Additional Information Sitting EOB for donning of slip ons. Doff,valentine depends over hips in standing. Toileting Moderate Assistance Mobility Assist Level Additional Information Bed Mobility Supine To Sit: Minimal Assistance Pt reports feeling nauseated Sit To Supine: Minimal Assistance Sit to Stand Moderate Assistance Verbal cues for safety. Gait belt usage Stand to Sit Moderate Assistance Bed to Chair Moderate Assistance Bed To Chair Transfer Type: Stepping Bed To Chair Transfer Equipment: Wheeled Walker, Gait Belt Toilet/Commode Moderate Assistance, Additional Information Gait belt usage and w/walker. Bedside commode usage. Shower Functional Mobility Moderate Assistance Functional Mobility Device: Wheeled Walker, Other: See Comment (Gait belt) GOALS Patient will demonstrate progress with self-care, cognitive and/or coping needs identified to allow safe discharge to home with available support and/or physical assistance. Grooming with: Modified Independent Upper Body Bathing with: Modified Independent Upper Body Dressing with: Modified Independent Lower Body Bathing with: Modified Independent Lower Body Dressing with: Modified Independent Toilet Hygiene with: Modified Independent Chair Transfer with: Heron (more content not included)... Normal [facility] CONSULTon 09-03-2023 CONSULT HNO ID: [id number] Author: FRANKO SILVA MD Service: Endocrinology Author Type: Physician Type: Consults Filed: 09/03/2023 16:41 Note Text: ENDO THYROID INITIAL CONSULT SERVICE DATE: 09/03/2023 SERVICE TIME: 8:12 am REASON FOR CONSULT: Hypothyroidism REQUESTING PHYSICIAN: Dr. Vo PRIMARY CARE PHYSICIAN: [facility] Subjective HISTORY OF PRESENT ILLNESS: Patient is a 77-year-old female who presented to the [facility] emergency department following a fall at home. According to the patient she was using the restroom earlier that morning. Upon exiting the restroom she lost her balance and fell. She was on the ground for several hours and was unable to get up. A friend finally showed up to her residence and saw her on the ground. EMS was called. Upon arrival to the emergency department the patient was found to be hemodynamically stable. On exam a left-sided scalp hematoma was appreciated. Routine labs revealed an elevated white blood cell count of 14.05. TSH 108.45, free T4 of 0.3 on labs. Patient reports "I think I was" taking levothyroxine medication at home, unsure of dose. She was also taking Toujeo 30 units BID for management of diabetes. Managed by PCP, Dr. Isaiah Roldan. PAST MEDICAL HISTORY Diagnosis Date Diabetes (HCC) No past surgical history on file. No family history on file. Social History Tobacco Use Smoking status: Former Packs/day: .5 Types: Cigarettes Substance Use Topics Alcohol use: Not Currently Drug use: Never buPROPion XL (WELLBUTRIN XL) 150 mg 24 hr tablet, Take 150 mg by mouth once daily., Disp: , Rfl: , Unknown pioglitazone (ACTOS) 30 mg tablet, Take 30 mg by mouth once daily., Disp: , Rfl: , Unknown bumetanide (BUMEX) 1 mg tablet, Take 1 mg by mouth once daily., Disp: , Rfl: , Unknown TOUJEO SOLOSTAR U-300 INSULIN 300 unit/mL (1.5 mL), Inject 30 Units subcutaneously two times a day., Disp: , Rfl: , Unknown levothyroxine (SYNTHROID) 150 mcg tablet, Take 150 mcg by mouth daily before breakfast., Disp: , Rfl: , Unknown venlafaxine ER (EFFEXOR XR) 37.5 mg 24 hr capsule, Take 37.5 mg by mouth once daily., Disp: , Rfl: , Unknown Current Facility-Administere d Medications Medication Dose Route Frequency Provider Last Rate Last Admin insulin lispro injection (rapid acting) (ADMElog) SUBCUTANEOUS w MEALS Eugenie Vo MD 3 Units at 09/03/23 06 insulin lispro injection (rapid acting) (ADMElog) SUBCUTANEOUS AT BEDTIME Eugenie Vo MD 1 Units at 09/02/232148 acetaminophen 1,000 mg tab(s) (TYLENOL) 1,000 mg ORAL q 8 H Eugenie Vo MD 1,000 mg at 09/03/23 0610 ondansetron (PF) 4 mg injection (ZOFRAN) 4 mg INTRAVENOUS q 6 H PRN Bry Casas, PERSONAL LINES ACCOUNT EXECUTIVE.DOCUMENTATION SPEC oxyCODONE IR 5 mg tab(s) (ROXICODONE) 5 mg ORAL q 4 H PRN Elia Andres, DO 5 mg at 09/02/23 0609 dextrose 40 % 15 g 15 g ORAL PRN Elia Andres, DO Or glucagon 1 mg injection 1 mg INTRAMUSCULAR PRN Elia Andres, DO Or dextrose 10% iv bolus 12.5 g INTRAVENOUS PRN VladamLeilaniElia, DO heparin 5,000 Units injection 5,000 Units SUBCUTANEOUS q 12 H Anna Andreshan, DO 5,000 Units at 09/02/23 214 NaCl 0.9% iv flush bag 20 mL INTRAVENOUS PRN Kanam, Elia, DO bumetanide 1 mg tab(s) (BUMEX) 1 mg ORAL DAILY Elia AndresDO 1 mg at 09/02/23 08 buPROPion XL 150 mg tab(s) (WELLBUTRIN XL) 150 mg ORAL DAILY Elia Andres 150 mg at 09/02/23 0828 venlafaxine ER 37.5 mg cap(s) (EFFEXOR XR) 37.5 mg ORAL DAILY Elia AndresDO 37.5 mg at 09/02/23 0828 levothyroxine 150 mcg tab(s) (SYNTHROID) 150 mcg ORAL BEFORE BREAKFAST DAILY Leilani Andresnatnelson 150 mcg at 09/03/23 0610 ALLERGIES No Known Allergies REVIEW OF SYSTEMS: General: no fever, chills or acute changes in weight in the last 6 months Skin: no rashes, pruritis or dry skin Eyes: no blurred or double vision or eye pain Cardiac: denies chest pain, heart palpitations or orthopnea Pulmonary: denies wheezing, productive cough or exertional dyspnea GI: denies nausea, vomiting, diarrhea or constipation Neuro: denies numbnes/tingling in hands or feet and denies seizures Musc: denies history of upper or lower extremity weakness Endocrine: denies polyuria, polydipsia, nocturia, blurry vision or excessive fatigue Objective PHYSICAL EXAM: General: Well appearing, alert, in no acute distress, well-hydrated, well nourished. Skin: skin color, texture, turgor normal, no rashes or lesions. Head: Wound on back of head after fall at home. Eyes: Anicteric sclera. Neck: Supple, no adenopathy; thyroid symmetric, normal size Heart: RRR without murmur, gallop, or rubs. No ectopy Abdomen: soft, non-tender, positive bowel sounds Extremities: no edema, no calluses or ulcers present. DATA: Diagnostic tests reviewed for today's visit: Most recent labs and imaging results. RADIOLOGY: US Thyroid was not done. Impression/Recommend ations Principal Problem: (more content not included)... Normal [facility] THERAPY NTon 09-03-2023 THERAPY NT HNO ID: [id number] Author: HENRIK CABA COTA/L Service: Occupational Therapy Author Type: Cutter Operator Tile Type: Therapy (PT/OT/Speech/Resp) Filed: 09/03/2023 16:13 Note Text: Attestation signed by Dahiana Galvin OTR/L at 09/04/2023 12:36 PM I reviewed and agree with the documentation corresponding to this therapy visit. SIGNATURE: DALJIT Acosta DATE: September 04, 2023 TIME: 12:36 PM Occupational Therapy Treatment Summary SERVICE DATE: 09/03/2023 SERVICE TIME: 1434 to 1516 ROOM: [id number] OT 6 Clicks Score: 16 DISCHARGE RECOMMENDATIONS Subacute/SNF Recommended Discharge Disposition Comments: pt presents limited by dizziness limiting safety. 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 ASSESSMENT Response to Therapy Interventions: Low Activity Tolerance, Labile Vital Signs Pt willing to particiapte in OT session. Pt is limited in standing and functional mobility due to feeling Nauseated. Nsg is aware. Pt required hands on assist for standing and functional mobility. PRECAUTIONS Fall Risk, Bed/Chair Alarm orthostatic + CURRENT HOSPITAL COURSE fall resulting in L posterior scalp hematoma Relevant Past Medical History: diabetes HOME LIVING Patient Lives With: Self/Alone Assistance Available: PRN, Other: See Comment Comments: Son lives nearby and bestfriend lives next door Entry To Home: Stairs, With Rail Number Of Stairs Into Home: 0 Number Of Stairs To Bed/Bath: 0 Tub/Shower Type: tub/shower Laundry: laundry down the shelton Equipment Owned: Cane, Walker- Wheeled PRIOR FUNCTIONAL LEVEL Within Functional Limits pt reports independence with ADLs, IADLs, denies device use; notes falling once standing on command Baseline Cognition: Oriented to self, Oriented to place, Oriented to time, Oriented to situation SUBJECTIVE "I'm nauseated." RE: Nsg is aware COGNITION Orientation Deficits: Confused Responsiveness: Awake, Alert Follows Commands: 2-step Commands Cueing to Follow Commands: Minimum Attention Deficits: Distractible Memory Deficits: Short Term Executive Function Deficits: Safety Awareness, Problem Solving, Insight to Deficits, Judgement THERAPY DIAGNOSIS Decreased activities of daily living (ADL) TREATMENT INTERVENTIONS Therapeutic Activity (20473) Timed Code Treatment (minutes): 42 Skilled Treatment Time (minutes): 42 TRAINING AND EDUCATION PROVIDED Activity Adaptation/Compensat ory Strategies, Bed Mobility, Benefits of In-Hospital Mobility, Edema Management, Discharge Planning, Grooming Tasks, Functional Mobility Involving ADLs, Insight into Deficits, Lower Extremity Dressing, Lower Extremity Bathing, Precautions/Restrict ions, Positioning, Role of Occupational Therapy, Safety/Judgment, Sitting Balance to Improve [place] with ADLs/Self-Care, Transfer - Sit to Stand, Transfer - Toilet/Commode THERAPEUTIC SKILLS USED FUNCTIONAL STATUS Activities of Daily Living Assist Level Additional Information Feeding Set Up Grooming Minimal Assistance Bathing Upper Body Minimal Assistance Bathing Lower Body Moderate Assistance Dressing Upper Body Minimal Assistance Dressing Lower Body Moderate Assistance Toileting Moderate Assistance Mobility Assist Level Additional Information Bed Mobility Supine To Sit: Minimal Assistance Pt reports feeling dizzy. BP reading 118/73 Sit To Supine: Minimal Assistance Sit to Stand Moderate Assistance Pt unable to stand for any length of time due to being nauseated. Stand to Sit Moderate Assistance Bed to Chair Moderate Assistance Bed To Chair Transfer Type: Stepping Bed To Chair Transfer Equipment: Wheeled Walker, Gait Belt Toilet/Commode Shower Functional Mobility GOALS Patient will demonstrate progress with self-care, cognitive and/or coping needs identified to allow safe discharge to home with available support and/or physical assistance. Grooming with: Modified Independent Upper Body Bathing with: Modified Independent Upper Body Dressing with: Modified Independent Lower Body Bathing with: Modified Independent Lower Body Dressing with: Modified Independent Toilet Hygiene with: Modified Independent Chair Transfer with: Modified Independent Toilet Transfer with: Modified Independent Tolerate (minutes of functional activity): 25 Functional Activity with: Modified Independent Progress Toward Goals: Progressing slower than expected Rehab Potential: Excellent PLAN OT Frequency: 5 Times Per Week Treatment Interventions: Education, Self (more content not included)... Normal [facility] Basic metabolic 2000 panelon 09-02-2023 Anion gap [Moles/Vol] 3 mmol/L Low 5-16 [facility] Comment on above: Order Comment: Speci men Type: BLOOD SPECIMEN Ordering Facility: [facility] Address: [address] [place] [address] Performed By: #### 1 9123-9, #### [facility] CLIA [id number] [address] [place] [address] [place] Calcium [Mass/Vol] 9.6 mg/dL Normal 8.5-10.5 [facility] Comment on above: Order Comment: Speci men Type: BLOOD SPECIMEN Ordering Facility: [facility] Address: [address] [place] [address] Performed By: #### 1 23-9, #### [facility] CLIA [id number] [address] [place] [address] [place] Chloride [Moles/Vol] 100 mmol/L Normal 98-107 [facility] Comment on above: Order Comment: Speci men Type: BLOOD SPECIMEN Ordering Facility: [facility] Address: [address] [place] [address] Performed By: #### 1 9123-9, #### [facility] CLIA [id number] [address] [place] [address] [place] CO2 [Moles/Vol] 34 mmol/L High 21-32 [facility] Comment on above: Order Comment: Speci men Type: BLOOD SPECIMEN Ordering Facility: [facility] Address: [address] [place] [address] Performed By: #### 1 9123-9, #### [facility] CLIA [id number] [address] [place] [address] [place] Creatinine [Mass/Vol] 0.98 mg/dL High 0.51-0.95 [facility] Comment on above: Order Comment: Sanjuana cazares Type: BLOOD SPECIMEN Ordering Facility: [facility] Address: [address] [place] [address] Result Comment: Jacqueline ents receiving either N-Acetylcysteine (NAC) or Metamizole prior to venipuncture, may have falsely depressed results. Performed By: #### 1 9123-9, 34269-4 #### [facility] CLIA [id number] [address] [place] [address] [place] Creatinine and Glomerular filtration rate.predicted panel (S/P/Bld) 60 mL/min/1.73m??? Normal >=60 [facility] Comment on above: Order Comment: Sanjuana cazares Type: BLOOD SPECIMEN Ordering Facility: [facility] Address: [address] [place] [address] Result Comment: Paula mated Glomerular Filtration Rate (eGFR) is calculated using the 2020 CKD-EPI creatinine equation. This equation utilizes serum creatinine, sex, and age as parameters. The creatinine assay has traceable calibration to isotope dilution-mass spectrometry. Refer to KDIGO guidelines for clinical interpretation. In patients with unstable renal function, e.g. those with acute kidney injury, the eGFR may not accurately reflect actual GFR. Performed By: #### 1 9123-9, 71973-7 #### [facility] CLIA [id number] [address] [place] [address] [place] Glucose [Mass/Vol] 162 mg/dL High 70-100 [facility] Comment on above: Order Comment: Sanjuana cazares Type: BLOOD SPECIMEN Ordering Facility: [facility] Address: [address] [place] [address] Result Comment: The [place] [employer] (ADA) provides guidance for cutoff values for fasting glucose and random glucose. The ADA defines fasting as no caloric intake for at least 8 hours. Fasting plasma glucose results between 100 to 125 mg/dL indicate increased risk for diabetes (prediabetes). Fasting plasma glucose results greater than or equal to 126 mg/dL meet the criteria for diagnosis of diabetes. In the absence of unequivocal hyperglycemia, results should be confirmed by repeat testing. In a patient with classic symptoms of hyperglycemia or hyperglycemic crisis, random plasma glucose results greater than or equal to 200 mg/dL meet the criteria for diagnosis of diabetes. Reference: Standards of Medical Care in Diabetes 2016, [place] [employer]. Diabetes Care. 2016.39(Suppl 1). Results may be falsely elevated after the administration of Sulfapyridine. Results may be falsely depressed after the administration of Sulfasalazine. Performed By: #### 1 9123-9, 22258-4 #### [facility] CLIA [id number] [address] [place] [address] [place] Potassium [Moles/Vol] 4.2 mmol/L Normal 3.5-5.1 [facility] Comment on above: Order Comment: Anahii debora Type: BLOOD SPECIMEN Ordering Facility: [facility] Address: [address] [place] [address] Performed By: #### 1 9123-9, 88230-3 #### [facility] CLIA [id number] [address] [place] [address] [place] Sodium [Moles/Vol] 137 mmol/L Normal 136-145 [facility] Comment on above: Order Comment: Anahii debora Type: BLOOD SPECIMEN Ordering Facility: [facility] Address: [address] [place] [address] Performed By: #### 1 9123-9, 10318-6 #### [facility] CLIA [id number] [address] [place] [address] [place] Urea nitrogen [Mass/Vol] 20 mg/dL Normal 7-26 [facility] Comment on above: Order Comment: Speci men Type: BLOOD SPECIMEN Ordering Facility: [facility] Address: [address] [place] [address] Performed By: #### 1 9123-9, 29382-8 #### [facility] CLIA [id number] [address] [place] [address] [place] CBC W Auto Differential pane l (Bld)on 09-02-2023 Basophils (Bld) [#/Vol] 10*3/uL Normal <0.11 [facility] Comment on above: Order Comment: Speci men Type: BLOOD SPECIMEN Ordering Facility: [facility] Address: [address] [place] [address] Performed By: #### 1 9, #### [facility] CLIA [id number] [address] [place] [address] [place] Basophils/100 WBC (Bld) 0.2 % Normal [facility] Comment on above: Order Comment: Speci men Type: BLOOD SPECIMEN Ordering Facility: [facility] Address: [address] [place] [address] Performed By: #### 1 9, #### [facility] CLIA [id number] [address] [place] [address] [place] Differential cell count method Nom (Bld) Auto Normal [facility] Comment on above: Order Comment: Speci men Type: BLOOD SPECIMEN Ordering Facility: [facility] Address: [address] [place] [address] Performed By: #### 1 9, #### [facility] CLIA [id number] [address] [place] [address] [place] Eosinophils (Bld) [#/Vol] 0.05 10*3/uL Normal <0.46 [facility] Comment on above: Order Comment: Speci men Type: BLOOD SPECIMEN Ordering Facility: [facility] Address: [address] [place] [address] Performed By: #### 1 9123-03, #### [facility] CLIA [id number] [address] [place] [address] [place] Eosinophils/100 WBC (Bld) 0.9 % Normal [facility] Comment on above: Order Comment: Speci men Type: BLOOD SPECIMEN Ordering Facility: [facility] Address: [address] [place] [address] Performed By: #### 1 239, #### [facility] CLIA [id number] [address] [place] [address] [place] Erythrocyte distribution width (RBC) [Ratio] 14.3 % Normal 11.5-15.0 [facility] Comment on above: Order Comment: Speci men Type: BLOOD SPECIMEN Ordering Facility: [facility] Address: [address] [place] [address] Performed By: #### 1 9123-9, #### [facility] CLIA [id number] [address] [place] [address] [place] Hematocrit (Bld) [Volume fraction] 36.5 % Normal 36.0-46.0 [facility] Comment on above: Order Comment: Speci men Type: BLOOD SPECIMEN Ordering Facility: [facility] Address: [address] [place] [address] Performed By: #### 1 23-9, #### [facility] CLIA [id number] [address] [place] [address] [place] Hemoglobin (Bld) [Mass/Vol] 12.0 g/dL Normal 11.5-15.5 [facility] Comment on above: Order Comment: Speci men Type: BLOOD SPECIMEN Ordering Facility: [facility] Address: [address] [place] [address] Performed By: #### 1 239, #### [facility] CLIA [id number] [address] [place] [address] [place] Immature granulocytes (Bld) [#/Vol] 10*3/uL Normal <0.10 [facility] Comment on above: Order Comment: Speci men Type: BLOOD SPECIMEN Ordering Facility: [facility] Address: [address] [place] [address] Performed By: #### 1 9123-9, #### [facility] CLIA [id number] [address] [place] [address] [place] Immature granulocytes/100 WBC (Bld) 0.4 % Normal [facility] Comment on above: Order Comment: Speci men Type: BLOOD SPECIMEN Ordering Facility: [facility] Address: [address] [place] [address] Performed By: #### 1 9123-9, #### [facility] CLIA [id number] [address] [place] [address] [place] Lymphocytes (Bld) [#/Vol] 1.35 10*3/uL Normal 1.00-4.00 [facility] Comment on above: Order Comment: Speci men Type: BLOOD SPECIMEN Ordering Facility: [facility] Address: [address] [place] [address] Performed By: #### 1 23-9, #### [facility] CLIA [id number] [address] [place] [address] [place] Lymphocytes/100 WBC (Bld) 24.6 % Normal [facility] Comment on above: Order Comment: Speci men Type: BLOOD SPECIMEN Ordering Facility: [facility] Address: [address] [place] [address] Performed By: #### 1 239, #### [facility] CLIA [id number] [address] [place] [address] [place] MCH (RBC) [Entitic mass] 31.0 pg Normal 26.0-34.0 [facility] Comment on above: Order Comment: Speci men Type: BLOOD SPECIMEN Ordering Facility: [facility] Address: [address] [place] [address] Performed By: #### 1 239, #### [facility] CLIA [id number] [address] [place] [address] [place] MCHC (RBC) [Mass/Vol] 32.9 g/dL Normal 30.5-36.0 [facility] Comment on above: Order Comment: Speci men Type: BLOOD SPECIMEN Ordering Facility: [facility] Address: [address] [place] [address] Performed By: #### 1 9123-9, #### [facility] CLIA [id number] [address] [place] [address] [place] MCV (RBC) [Entitic vol] 94.3 fL Normal 80.0-100.0 [facility] Comment on above: Order Comment: Speci men Type: BLOOD SPECIMEN Ordering Facility: [facility] Address: [address] [place] [address] Performed By: #### 1 9123-9, #### [facility] CLIA [id number] [address] [place] [address] [place] Monocytes (Bld) [#/Vol] 0.32 10*3/uL Normal <0.87 [facility] Comment on above: Order Comment: Speci men Type: BLOOD SPECIMEN Ordering Facility: [facility] Address: [address] [place] [address] Performed By: #### 1 9123-9, #### [facility] CLIA [id number] [address] [place] [address] [place] Monocytes/100 WBC (Bld) 5.8 % Normal [facility] Comment on above: Order Comment: Speci men Type: BLOOD SPECIMEN Ordering Facility: [facility] Address: [address] [place] [address] Performed By: #### 1 9123-9, #### [facility] CLIA [id number] [address] [place] [address] [place] Neutrophils (Bld) [#/Vol] 3.73 10*3/uL Normal 1.45-7.50 [facility] Comment on above: Order Comment: Speci men Type: BLOOD SPECIMEN Ordering Facility: [facility] Address: [address] [place] [address] Performed By: #### 1 9123-9, #### [facility] CLIA [id number] [address] [place], [place] [address] [place] Neutrophils/100 WBC (Bld) 68.1 % Normal [facility] Comment on above: Order Comment: Speci men Type: BLOOD SPECIMEN Ordering Facility: [facility] Address: [address] [place] [address] Performed By: #### 1 9123-9, #### [facility] CLIA [id number] [address] [place], [place] [address] [place] Nucleated RBC (Bld) [#/Vol] 10*3/uL Normal <0.01 [facility] Comment on above: Order Comment: Speci men Type: BLOOD SPECIMEN Ordering Facility: [facility] Address: [address] [place] [address] Performed By: #### 1 9123-9, #### [facility] CLIA [id number] [address] [place] [address] [place] Nucleated RBC/100 WBC (Bld) [Ratio] 0.0 /100 WBC Normal [facility] Comment on above: Order Comment: Speci men Type: BLOOD SPECIMEN Ordering Facility: [facility] Address: [address] [place] [address] Performed By: #### 1 91239, #### [facility] CLIA [id number] [address] [place] [address] [place] Platelet mean volume (Bld) [Entitic vol] 9.1 fL Normal 9.0-12.7 [facility] Comment on above: Order Comment: Speci men Type: BLOOD SPECIMEN Ordering Facility: [facility] Address: [address] [place] [address] Performed By: #### 1 9123-9, #### [facility] CLIA [id number] [address] [place] [address] [place] Platelets (Bld) [#/Vol] 215 10*3/uL Normal 150-400 [facility] Comment on above: Order Comment: Speci men Type: BLOOD SPECIMEN Ordering Facility: [facility] Address: [address] [place] [address] Performed By: #### 1 9123-9, #### [facility] CLIA [id number] [address] [place] [address] [place] RBC (Bld) [#/Vol] 3.87 10*6/uL Low 3.90-5.20 [facility] Comment on above: Order Comment: Speci men Type: BLOOD SPECIMEN Ordering Facility: [facility] Address: [address] [place] [id number] Performed By: #### 1 9123-9, 44882-3 #### [facility] CLIA [id number] [address] [place] [address] [place] WBC (Bld) [#/Vol] 5.48 10*3/uL Normal 3.70-11.00 [facility] Comment on above: Order Comment: Speci men Type: BLOOD SPECIMEN Ordering Facility: [facility] Address: [place] [address] Performed By: #### 1 9123-9, 34425-2 #### [facility] CLIA [id number] [address] [place] [address] [place] Magnesium SerPl-mCncon 09-02 Magnesium [Mass/Vol] 2.0 mg/dL Normal 1.6-2.6 [facility] Comment on above: Order Comment: Speci men Type: BLOOD SPECIMEN Ordering Facility: [facility] Address: [place] [address] Performed By: #### 1 9123-9, 01797-2 #### [facility] CLIA [id number] [address] [place] [address] [place] T4 Free SerPl-mCncon 024 Free T4 [Mass/Vol] 0.3 ng/dL Low 0.8-1.5 [facility] Comment on above: Order Comment: Speci men Type: BLOOD SPECIMEN Ordering Facility: [facility] Address: [place] [address] Performed By: #### 1 9123-9, 96254-4 #### [facility] CLIA [id number] [address] [place] [address] [place] TSH SerPl-aCncon 09-02-2023 TSH Qn 108.457 m[IU]/L High 0.358-3.740 [facility] Comment on above: Order Comment: Speci men Type: BLOOD SPECIMEN Ordering Facility: [facility] Address: [address] [place] [address] Result Comment: 3rd generation ultra sensitive TSH. Performed By: #### 1 9123-9, #### [facility] CLIA [id number] [address] [place] [address] [place] CBC panel Auto (Bld)on 09-01 Erythrocyte distribution width (RBC) [Ratio] 14.4 % Normal 11.5-15.0 [facility] Comment on above: Order Comment: Speci men Type: BLOOD SPECIMEN Ordering Facility: [facility] Address: [address] [place] [address] Performed By: #### 1 9123-9, #### [facility] CLIA [id number] [address] [place] [address] [place] Hematocrit (Bld) [Volume fraction] 38.2 % Normal 36.0-46.0 [facility] Comment on above: Order Comment: Speci men Type: BLOOD SPECIMEN Ordering Facility: [facility] Address: [address] [place] [address] Performed By: #### 1 9123-9, #### [facility] CLIA [id number] [address] [place] [address] [place] Hemoglobin (Bld) [Mass/Vol] 12.3 g/dL Normal 11.5-15.5 [facility] Comment on above: Order Comment: Speci men Type: BLOOD SPECIMEN Ordering Facility: [facility] Address: [address] [place] [address] Performed By: #### 1 9123-9, #### [facility] CLIA [id number] [address] [place] [address] [place] MCH (RBC) [Entitic mass] 30.3 pg Normal 26.0-34.0 [facility] Comment on above: Order Comment: Speci men Type: BLOOD SPECIMEN Ordering Facility: [facility] Address: [address] [place] [id number] Performed By: #### 1 9123-9, #### [facility] CLIA [id number] [address] [place] [address] [place] MCHC (RBC) [Mass/Vol] 32.2 g/dL Normal 30.5-36.0 [facility] Comment on above: Order Comment: Speci men Type: BLOOD SPECIMEN Ordering Facility: [facility] Address: [address] [facility] [place] [address] Performed By: #### 1 9123-9, #### [facility] CLIA [id number] [address] [place] [address] [place] MCV (RBC) [Entitic vol] 94.1 fL Normal 80.0-100.0 [facility] Comment on above: Order Comment: Speci men Type: BLOOD SPECIMEN Ordering Facility: [facility] Address: [address] [place] [address] Performed By: #### 1 9123-9, #### [facility] CLIA [id number] [address] [place] [address] [place] Nucleated RBC (Bld) [#/Vol] 10*3/uL Normal <0.01 [facility] Comment on above: Order Comment: Speci men Type: BLOOD SPECIMEN Ordering Facility: [facility] Address: [address] [facility] [place] [address] Performed By: #### 1 91239, #### [facility] CLIA [id number] [address] [place] [address] [place] Platelet mean volume (Bld) [Entitic vol] 9.3 fL Normal 9.0-12.7 [facility] Comment on above: Order Comment: Speci men Type: BLOOD SPECIMEN Ordering Facility: [facility] Address: [address] [facility] [place] [address] Performed By: #### 1 9123-9, #### [facility] CLIA [id number] [address] [place] [address] [place] [address] [place] [facility] [place] Platelets (Bld) [#/Vol] 238 10*3/uL Normal 150-400 [facility] Comment on above: Order Comment: Speci men Type: BLOOD SPECIMEN Ordering Facility: [facility] Address: [address] [place] [address] Performed By: #### 1 9123-9, 96091-4 #### [facility] CLIA [id number] [address] [place], [place] [address] [place] RBC (Bld) [#/Vol] 4.06 10*6/uL Normal 3.90-5.20 [facility] Comment on above: Order Comment: Speci men Type: BLOOD SPECIMEN Ordering Facility: [facility] Address: [address] [place] [address] Performed By: #### 1 9123-9, 15767-4 #### [facility] CLIA [id number] [address] [place] [address] [place] WBC (Bld) [#/Vol] 9.92 10*3/uL Normal 3.70-11.00 [facility] Comment on above: Order Comment: Speci men Type: BLOOD SPECIMEN Ordering Facility: [facility] Address: [address] [place] [address] Performed By: #### 1 9123-9, 43827-8 #### [facility] CLIA [id number] [address] [place], [place] [address] [place] Comprehensive metabolic 2000 panelon 09-01-2023 Albumin [Mass/Vol] 3.5 g/dL Normal 3.2-5.0 [facility] Comment on above: Order Comment: Speci men Type: BLOOD SPECIMEN Ordering Facility: [facility] Address: [address] [place] [address] Performed By: #### 1 9123-9, 64878-6 #### [facility] CLIA [id number] [address] [place], [place] [address] [place] ALP [Catalytic activity/Vol] 174 U/L High 45-117 [facility] Comment on above: Order Comment: Speci men Type: BLOOD SPECIMEN Ordering Facility: [facility] Address: [address] [place] [address] Performed By: #### 1 9123-9, 27309-5 #### [facility] CLIA [id number] [address] [place] [address] [place] ALT [Catalytic activity/Vol] 9 U/L Low 13-61 [facility] Comment on above: Order Comment: Speci men Type: BLOOD SPECIMEN Ordering Facility: [facility] Address: [address] [place] [address] Result Comment: Resu lts may be falsely depressed after the administration of Sulfasalazine and/or Sulfapyridine. Performed By: #### 1 9123-9, 95800-7 #### [facility] CLIA [id number] [address] [place] [address] [place] Anion gap [Moles/Vol] 4 mmol/L Low 5-16 [facility] Comment on above: Order Comment: Speci men Type: BLOOD SPECIMEN Ordering Facility: [facility] Address: [address] [place] [address] Performed By: #### 1 9123-9, 40405-1 #### [facility] CLIA [id number] [address] [place] [address] [place] AST [Catalytic activity/Vol] 25 U/L Normal 8-34 [facility] Comment on above: Order Comment: Speci men Type: BLOOD SPECIMEN Ordering Facility: [facility] Address: [address] [place] [address] Result Comment: Resu lts may be falsely depressed after the administration of Sulfasalazine and/or Sulfapyridine. Performed By: #### 1 9123-9, 12702-6 #### [facility] CLIA [id number] [address] [place] [address] [place] Bilirubin [Mass/Vol] 1.5 mg/dL High 0.2-1.0 [facility] Comment on above: Order Comment: Speci men Type: BLOOD SPECIMEN Ordering Facility: [facility] Address: [address] [place] [address] Performed By: #### 1 9123-9, 71328-5 #### [facility] CLIA [id number] [address] [place] [address] [place] Calcium [Mass/Vol] 9.6 mg/dL Normal 8.5-10.5 [facility] Comment on above: Order Comment: Speci men Type: BLOOD SPECIMEN Ordering Facility: [facility] Address: [address] [place] [address] Performed By: #### 1 9123-9, #### [facility] CLIA [id number] [address] [place] [address] [place] Chloride [Moles/Vol] 105 mmol/L Normal 98-107 [facility] Comment on above: Order Comment: Speci men Type: BLOOD SPECIMEN Ordering Facility: [facility] Address: [address] [place] [address] Performed By: #### 1 9123-9, #### [facility] CLIA [id number] [address] [place] [address] [place] CO2 [Moles/Vol] 32 mmol/L Normal 21-32 [facility] Comment on above: Order Comment: Speci men Type: BLOOD SPECIMEN Ordering Facility: [facility] Address: [address] [place] [address] Performed By: #### 1 9123-9, #### [facility] CLIA [id number] [address] [place] [address] [place] Creatinine [Mass/Vol] 0.80 mg/dL Normal 0.51-0.95 [facility] Comment on above: Order Comment: Speci men Type: BLOOD SPECIMEN Ordering Facility: [facility] Address: [address] [place] [address] Result Comment: Jacqueline ents receiving either N-Acetylcysteine (NAC) or Metamizole prior to venipuncture, may have falsely depressed results. Performed By: #### 1 9123-9, #### [facility] CLIA [id number] [address] [place] [address] [place] Creatinine and Glomerular filtration rate.predicted panel (S/P/Bld) 76 mL/min/1.73m??? Normal >=60 [facility] Comment on above: Order Comment: Sanjuana cazares Type: BLOOD SPECIMEN Ordering Facility: [facility] Address: [address] [place] [address] Result Comment: Paula mated Glomerular Filtration Rate (eGFR) is calculated using the 2020 CKD-EPI creatinine equation. This equation utilizes serum creatinine, sex, and age as parameters. The creatinine assay has traceable calibration to isotope dilution-mass spectrometry. Refer to KDIGO guidelines for clinical interpretation. In patients with unstable renal function, e.g. those with acute kidney injury, the eGFR may not accurately reflect actual GFR. Performed By: #### 1 9123-9, 32142-2 #### [facility] CLIA [id number] [address] [place] [address] [place] Glucose [Mass/Vol] 99 mg/dL Normal 70-100 [facility] Comment on above: Order Comment: Sanjuana cazares Type: BLOOD SPECIMEN Ordering Facility: [facility] Address: [address] [place] [address] Result Comment: The [place] [employer] (ADA) provides guidance for cutoff values for fasting glucose and random glucose. The ADA defines fasting as no caloric intake for at least 8 hours. Fasting plasma glucose results between 100 to 125 mg/dL indicate increased risk for diabetes (prediabetes). Fasting plasma glucose results greater than or equal to 126 mg/dL meet the criteria for diagnosis of diabetes. In the absence of unequivocal hyperglycemia, results should be confirmed by repeat testing. In a patient with classic symptoms of hyperglycemia or hyperglycemic crisis, random plasma glucose results greater than or equal to 200 mg/dL meet the criteria for diagnosis of diabetes. Reference: Standards of Medical Care in Diabetes 2016, [place] [employer]. Diabetes Care. 2016.39(Suppl 1). Results may be falsely elevated after the administration of Sulfapyridine. Results may be falsely depressed after the administration of Sulfasalazine. Performed By: #### 1 9123-9, 36887-8 #### [facility] CLIA [id number] [address] [place] [address] [place] Potassium [Moles/Vol] 3.7 mmol/L Normal 3.5-5.1 [facility] Comment on above: Order Comment: Speci men Type: BLOOD SPECIMEN Ordering Facility: [facility] Address: [address] [place] [address] Performed By: #### 1 9123-9, 05168-0 #### [facility] CLIA [id number] [address] [place] [address] [place] Protein [Mass/Vol] 6.2 g/dL Normal 6.0-8.5 [facility] Comment on above: Order Comment: Speci men Type: BLOOD SPECIMEN Ordering Facility: [facility] Address: [address] [place] [address] Performed By: #### 1 9123-9, 48809-1 #### [facility] CLIA [id number] [address] [place] [address] [place] Sodium [Moles/Vol] 141 mmol/L Normal 136-145 [facility] Comment on above: Order Comment: Speci men Type: BLOOD SPECIMEN Ordering Facility: [facility] Address: [address] [place] [address] Performed By: #### 1 9123-9, 07688-8 #### [facility] CLIA [id number] [address] [place] [address] [place] Urea nitrogen [Mass/Vol] 22 mg/dL Normal 7-26 [facility] Comment on above: Order Comment: Speci men Type: BLOOD SPECIMEN Ordering Facility: [facility] Address: [address] [place] [address] Performed By: #### 1 9123-9, 15655-4 #### [facility] CLIA [id number] [address] [place] [address] [place] Magnesium SerPl-mCncon 09-01 Magnesium [Mass/Vol] 2.2 mg/dL Normal 1.6-2.6 [facility] Comment on above: Order Comment: Speci men Type: BLOOD SPECIMEN Ordering Facility: [facility] Address: [place] [address] Performed By: #### 1 9123-9, 58129-0 #### [facility] CLIA [id number] [address] [place] [address] [facility] THERAPY NTon 09-01-2023 THERAPY NT HNO ID: [id number] Author: ISREAL MCCULLOUGH, OTR/L Service: Occupational Therapy Author Type: Occupational Therapist Type: Therapy (PT/OT/Speech/Resp) Filed: 09/01/2023 13:44 Note Text: Occupational Therapy Evaluation Summary SERVICE DATE: 09/01/2023 SERVICE TIME: 1319 to 1336 ROOM: [place] [address] OT 6 Clicks Score: 16 DISCHARGE RECOMMENDATIONS Subacute/SNF Recommended Discharge Disposition Comments: pt presents limited by dizziness limiting safety. 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 ASSESSMENT Response to Therapy Interventions: Low Activity Tolerance, Labile Vital Signs PRECAUTIONS Fall Risk, Bed/Chair Alarm orthostatic + CURRENT HOSPITAL COURSE fall resulting in L posterior scalp hematoma Relevant Past Medical History: diabetes HOME LIVING Patient Lives With: Self/Alone Assistance Available: PRN, Other: See Comment Comments: Son lives nearby and bestfriend lives next door Entry To Home: Stairs, With Rail Number Of Stairs Into Home: 0 Number Of Stairs To Bed/Bath: 0 Tub/Shower Type: tub/shower Laundry: laundry down the shelton Equipment Owned: Cane, Walker- Wheeled PRIOR FUNCTIONAL LEVEL Within Functional Limits pt reports independence with ADLs, IADLs, denies device use; notes falling once standing on command Baseline Cognition: Oriented to self, Oriented to place, Oriented to time, Oriented to situation SUBJECTIVE COGNITION Orientation Deficits: Confused Responsiveness: Awake Follows Commands: 1-step Commands, Cueing Needed Cueing to Follow Commands: Minimum Attention Deficits: Distractible Memory Deficits: Short Term Executive Function Deficits: Safety Awareness, Problem Solving, Insight to Deficits, Judgement THERAPY DIAGNOSIS Decreased activities of daily living (ADL) TREATMENT INTERVENTIONS Evaluation Timed Code Treatment (minutes): 17 Skilled Treatment Time (minutes): 17 TRAINING AND EDUCATION PROVIDED Activity Adaptation/Compensat ory Strategies, Bed Mobility, Benefits of In-Hospital Mobility, Edema Management, Discharge Planning, Grooming Tasks, Functional Mobility Involving ADLs, Insight into Deficits, Lower Extremity Dressing, Lower Extremity Bathing, Precautions/Restrict ions, Positioning, Role of Occupational Therapy, Safety/Judgment, Sitting Balance to Improve [place] with ADLs/Self-Care, Transfer - Sit to Stand, Transfer - Toilet/Commode THERAPEUTIC SKILLS USED Activity Dosing, Cuing Tactile, Cuing Verbal, Cuing Visual FUNCTIONAL STATUS Activities of Daily Living Assist Level Additional Information Feeding Set Up Grooming Minimal Assistance Bathing Upper Body Minimal Assistance Bathing Lower Body Moderate Assistance Dressing Upper Body Minimal Assistance Dressing Lower Body Moderate Assistance Toileting Moderate Assistance Mobility Assist Level Additional Information Bed Mobility Supine To Sit: Minimal Assistance, Additional Information pt very dizzy upon sitting EOB, pt with increased dizziness anytime looking down or trying to move additionally Sit To Supine: Minimal Assistance Sit to Stand Additional Information unable to attempt standing d/t dizziness limiting safety Stand to Sit Bed to Chair Toilet/Commode Shower Functional Mobility GOALS Patient will demonstrate progress with self-care, cognitive and/or coping needs identified to allow safe discharge to home with available support and/or physical assistance. Grooming with: Modified Independent Upper Body Bathing with: Modified Independent Upper Body Dressing with: Modified Independent Lower Body Bathing with: Modified Independent Lower Body Dressing with: Modified Independent Toilet Hygiene with: Modified Independent Chair Transfer with: Modified Independent Toilet Transfer with: Modified Independent Tolerate (minutes of functional activity): 25 Functional Activity with: Modified Independent Rehab Potential: Excellent PLAN OT Frequency: 5 Times Per Week Treatment Interventions: Education, Self Care/Home Management Plan for Next Visit: Bathing Training, Bed Mobility, Chair/Commode Transfer Training, Dressing Training, Sit to Stand Transfers, Standing Balance, Standing Tolerance, Energy Conservation, Edema Management, Fall Prevention, Grooming Training SIGNATURE: LEON Gant/Janeen PATIENT NAME: Marcia Rooney DATE: September 01, 2023 TIME: 1:43 PM [facility] ALLIED HEALTHon 08-31-2023 ALLIED HEALTH HNO ID: [id number] Author: ISREAL VOGEL RT(R) Service: Radiology Author Type: Technologist Type: Allied Health Filed: 08/31/2023 16:53 Note Text: Summary: lt. knee rt. elbow Radiology Service Progress Note PATIENT NAME: Marcia Rooney DATE OF SERVICE: August 31, 2023 TIME: 4:52 PM PATIENT IDENTITY VERIFICATION COMPLETED USING TWO (2) IDENTIFIERS: Name and Date of confirmed by patient verbally and Name and Date of confirmed by identification band. FALL SCREENING: Has the patient had 2 falls in the last year or 1 fall with injury or currently using an Ambulatory Assistive Device (Walker, Cane, Wheelchair, Crutches, etc.)? Emergency Room Patient: Screened in ED PATIENT GENDER DATA: Female. status: : No status: NO. PATIENT RELEVANT IMPLANT DATA REVIEWED: Not Applicable PATIENT PRESENTS WITH AN IMPLANTABLE OR ATTACHED PCTS: No RADIOLOGY DEPARTMENT: General X-ray: Exam(s) Completed: Lower Extremity X-Ray(s): Knee, AP / LAT Left Upper Extremity X-Ray(s): Elbow, right PERIPHERAL IV DATA: Not applicable SIGNED BY: Isreal Vogel, RT(R) August 31, 2023 4:52 PM Normal [facility] Basic metabolic 2000 panelon 08-31-2023 Anion gap [Moles/Vol] 7 mmol/L Normal 5-16 [facility] Comment on above: Order Comment: Speci men Type: BLOOD SPECIMEN Ordering Facility: [facility] Address: [address] [place] [address] Performed By: #### H STROEvangelina #### [facility] CLIA [id number] [address] [place] [address] [place] Calcium [Mass/Vol] 9.5 mg/dL Normal 8.5-10.5 [facility] Comment on above: Order Comment: Speci men Type: BLOOD SPECIMEN Ordering Facility: [facility] Address: [address] [place] [address] Performed By: #### H STROP #### [facility] CLIA [id number] [address] [place] [address] [place] Chloride [Moles/Vol] 101 mmol/L Normal 98-107 [facility] Comment on above: Order Comment: Speci men Type: BLOOD SPECIMEN Ordering Facility: [facility] Address: [address] [place] [address] Performed By: #### H STROP #### [facility] CLIA [id number] [address] [place] [address] [place] CO2 [Moles/Vol] 31 mmol/L Normal 21-32 [facility] Comment on above: Order Comment: Speci men Type: BLOOD SPECIMEN Ordering Facility: [facility] Address: [address] [place] [address] Performed By: #### H STROP #### [facility] CLIA [id number] [address] [place] [address] [place] Creatinine [Mass/Vol] 0.72 mg/dL Normal 0.51-0.95 [facility] Comment on above: Order Comment: Speci men Type: BLOOD SPECIMEN Ordering Facility: [facility] Address: [address] [place] [address] Result Comment: Jacqueline ents receiving either N-Acetylcysteine (NAC) or Metamizole prior to venipuncture, may have falsely depressed results. Performed By: #### H STROP #### [facility] CLIA [id number] [address] [place] [address] [place] Creatinine and Glomerular filtration rate.predicted panel (S/P/Bld) 86 mL/min/1.73m??? Normal >=60 [facility] Comment on above: Order Comment: Speci men Type: BLOOD SPECIMEN Ordering Facility: [facility] Address: [address] [place] [address] Result Comment: Paula mated Glomerular Filtration Rate (eGFR) is calculated using the 2020 CKD-EPI creatinine equation. This equation utilizes serum creatinine, sex, and age as parameters. The creatinine assay has traceable calibration to isotope dilution-mass spectrometry. Refer to KDIGO guidelines for clinical interpretation. In patients with unstable renal function, e.g. those with acute kidney injury, the eGFR may not accurately reflect actual GFR. Performed By: #### H STROP #### [facility] CLIA [id number] [address] [place] [address] [place] Glucose [Mass/Vol] 94 mg/dL Normal 70-100 [facility] Comment on above: Order Comment: Sanjuana cazares Type: BLOOD SPECIMEN Ordering Facility: [facility] Address: [address] [place] [address] Result Comment: The [place] [employer] (ADA) provides guidance for cutoff values for fasting glucose and random glucose. The ADA defines fasting as no caloric intake for at least 8 hours. Fasting plasma glucose results between 100 to 125 mg/dL indicate increased risk for diabetes (prediabetes). Fasting plasma glucose results greater than or equal to 126 mg/dL meet the criteria for diagnosis of diabetes. In the absence of unequivocal hyperglycemia, results should be confirmed by repeat testing. In a patient with classic symptoms of hyperglycemia or hyperglycemic crisis, random plasma glucose results greater than or equal to 200 mg/dL meet the criteria for diagnosis of diabetes. Reference: Standards of Medical Care in Diabetes 2016, [place] [employer]. Diabetes Care. 2016.39(Suppl 1). Results may be falsely elevated after the administration of Sulfapyridine. Results may be falsely depressed after the administration of Sulfasalazine. Performed By: #### H STROP #### [facility] CLIA [id number] [address] [place] [address] [place] Potassium [Moles/Vol] 3.8 mmol/L Normal 3.5-5.1 [facility] Comment on above: Order Comment: Sanjuana cazares Type: BLOOD SPECIMEN Ordering Facility: [facility] Address: [address] [place] [address] Performed By: #### H STROP #### [facility] CLIA [id number] [address] [place] [address] [place] Sodium [Moles/Vol] 139 mmol/L Normal 136-145 [facility] Comment on above: Order Comment: Speci men Type: BLOOD SPECIMEN Ordering Facility: [facility] Address: [address] [place] [address] Performed By: #### H STROP #### [facility] CLIA [id number] [address] [place] [address] [place] Urea nitrogen [Mass/Vol] 22 mg/dL Normal 7-26 [facility] Comment on above: Order Comment: Speci men Type: BLOOD SPECIMEN Ordering Facility: [facility] Address: [address] [place] [address] Performed By: #### H STROP #### [facility] CLIA [id number] [address] [place] [address] [place] CBC W Auto Differential pane l (Bld)on 08-31-2023 Basophils (Bld) [#/Vol] 10*3/uL Normal <0.11 [facility] Comment on above: Order Comment: Speci men Type: BLOOD SPECIMEN Ordering Facility: [facility] Address: [address] [place] [address] Performed By: #### 5 7021-8 #### [facility] CLIA [id number] [address] [place] [address] [place] Basophils/100 WBC (Bld) 0.1 % Normal [facility] Comment on above: Order Comment: Speci men Type: BLOOD SPECIMEN Ordering Facility: [facility] Address: [address] [place] [address] Performed By: #### 5 7021-8 #### [facility] CLIA [id number] [address] [place] [address] STATES [facility] Differential cell count method Nom (Bld) Auto Normal [facility] Comment on above: Order Comment: Speci men Type: BLOOD SPECIMEN Ordering Facility: [facility] Address: [address] [place] [address] Performed By: #### 5 7021-8 #### [facility] CLIA [id number] [address] [place] [address] [place] Eosinophils (Bld) [#/Vol] 10*3/uL Normal <0.46 [facility] Comment on above: Order Comment: Speci men Type: BLOOD SPECIMEN Ordering Facility: [facility] Address: [address] [place] [address] Performed By: #### 5 7021-8 #### [facility] CLIA [id number] [address] [place] [address] [place] Eosinophils/100 WBC (Bld) 0.0 % Normal [facility] Comment on above: Order Comment: Speci men Type: BLOOD SPECIMEN Ordering Facility: [facility] Address: [address] [place] [address] Performed By: #### 5 7021-8 #### [facility] CLIA [id number] [address] [place] [address] [place] Erythrocyte distribution width (RBC) [Ratio] 14.2 % Normal 11.5-15.0 [facility] Comment on above: Order Comment: Speci men Type: BLOOD SPECIMEN Ordering Facility: [facility] Address: [address] [place] [address] Performed By: #### 5 7021-8 #### [facility] CLIA [id number] [address] [place] [address] [place] Hematocrit (Bld) [Volume fraction] 41.0 % Normal 36.0-46.0 [facility] Comment on above: Order Comment: Speci men Type: BLOOD SPECIMEN Ordering Facility: [facility] Address: [address] [place] [address] Performed By: #### 5 7021-8 #### [facility] CLIA [id number] [address] [place] [address] [place] Hemoglobin (Bld) [Mass/Vol] 13.4 g/dL Normal 11.5-15.5 [facility] Comment on above: Order Comment: Speci men Type: BLOOD SPECIMEN Ordering Facility: [facility] Address: [address] [place] [address] Performed By: #### 5 7021-8 #### [facility] CLIA [id number] [address] [place] [address] [place] Immature granulocytes (Bld) [#/Vol] 0.05 10*3/uL Normal <0.10 [facility] Comment on above: Order Comment: Speci men Type: BLOOD SPECIMEN Ordering Facility: [facility] Address: [address] [place] [address] Performed By: #### 5 7021-8 #### [facility] CLIA [id number] [address] [place] [address] [place] Immature granulocytes/100 WBC (Bld) 0.4 % Normal [facility] Comment on above: Order Comment: Speci men Type: BLOOD SPECIMEN Ordering Facility: [facility] Address: [address] [place] [address] Performed By: #### 5 7021-8 #### [facility] CLIA [id number] [address] [place] [address] [place] Lymphocytes (Bld) [#/Vol] 0.53 10*3/uL Low 1.00-4.00 [facility] Comment on above: Order Comment: Speci men Type: BLOOD SPECIMEN Ordering Facility: [facility] Address: [address] [place] [address] Performed By: #### 5 7021-8 #### [facility] CLIA [id number] [address] [place] [address] [place] Lymphocytes/100 WBC (Bld) 3.8 % Normal [facility] Comment on above: Order Comment: Speci men Type: BLOOD SPECIMEN Ordering Facility: [facility] Address: [address] [place] [address] Performed By: #### 5 7021-8 #### [facility] CLIA [id number] [address] [place] [address] [place] MCH (RBC) [Entitic mass] 30.5 pg Normal 26.0-34.0 [facility] Comment on above: Order Comment: Speci men Type: BLOOD SPECIMEN Ordering Facility: [facility] Address: [address] [place] [address] Performed By: #### 5 7021-8 #### [facility] CLIA [id number] [address] [place] [address] [place] MCHC (RBC) [Mass/Vol] 32.7 g/dL Normal 30.5-36.0 [facility] Comment on above: Order Comment: Speci men Type: BLOOD SPECIMEN Ordering Facility: [facility] Address: [address] [place] [address] Performed By: #### 5 7021-8 #### [facility] CLIA [id number] [address] [place] [address] [place] MCV (RBC) [Entitic vol] 93.2 fL Normal 80.0-100.0 [facility] Comment on above: Order Comment: Speci men Type: BLOOD SPECIMEN Ordering Facility: [facility] Address: [address] [place] [address] Performed By: #### 5 7021-8 #### [facility] CLIA [id number] [address] [place] [address] [place] Monocytes (Bld) [#/Vol] 0.37 10*3/uL Normal <0.87 [facility] Comment on above: Order Comment: Speci men Type: BLOOD SPECIMEN Ordering Facility: [facility] Address: [address] [place] [address] Performed By: #### 5 7021-8 #### [facility] CLIA [id number] [address] [place] [address] [place] Monocytes/100 WBC (Bld) 2.6 % Normal [facility] Comment on above: Order Comment: Speci men Type: BLOOD SPECIMEN Ordering Facility: [facility] Address: [address] [place] [address] Performed By: #### 5 7021-8 #### [facility] CLIA [id number] [address] [place] [address] [place] Neutrophils (Bld) [#/Vol] 13.08 10*3/uL High 1.45-7.50 [facility] Comment on above: Order Comment: Speci men Type: BLOOD SPECIMEN Ordering Facility: [facility] Address: [address] [place] [address] Performed By: #### 5 7021-8 #### [facility] CLIA [id number] [address] [place] [address] [place] Neutrophils/100 WBC (Bld) 93.1 % Normal [facility] Comment on above: Order Comment: Speci men Type: BLOOD SPECIMEN Ordering Facility: [facility] Address: [address] [place] [address] Performed By: #### 5 7021-8 #### [facility] CLIA [id number] [address] [place] [address] [place] Nucleated RBC (Bld) [#/Vol] 10*3/uL Normal <0.01 [facility] Comment on above: Order Comment: Speci men Type: BLOOD SPECIMEN Ordering Facility: [facility] Address: [address] [place] [address] Performed By: #### 5 7021-8 #### [facility] CLIA [id number] [address] [place] [address] [place] Nucleated RBC/100 WBC (Bld) [Ratio] 0.0 /100 WBC Normal [facility] Comment on above: Order Comment: Speci men Type: BLOOD SPECIMEN Ordering Facility: [facility] Address: [address] [place] [address] Performed By: #### 5 7021-8 #### [facility] CLIA [id number] [address] [place] [address] [place] Platelet mean volume (Bld) [Entitic vol] 9.4 fL Normal 9.0-12.7 [facility] Comment on above: Order Comment: Speci men Type: BLOOD SPECIMEN Ordering Facility: [facility] Address: [address] [place] [address] Performed By: #### 5 7021-8 #### [facility] CLIA [id number] [address] [place] [address] [place] [facility] [place] Platelets (Bld) [#/Vol] 257 10*3/uL Normal 150-400 [facility] Comment on above: Order Comment: Speci men Type: BLOOD SPECIMEN Ordering Facility: [facility] Address: [address] [place] [address] Performed By: #### 5 7021-8 #### [facility] CLIA [id number] [address] [place] [address] [facility] [place] RBC (Bld) [#/Vol] 4.40 10*6/uL Normal 3.90-5.20 [facility] Comment on above: Order Comment: Speci men Type: BLOOD SPECIMEN Ordering Facility: [facility] Address: [address] [place] [address] Performed By: #### 5 7021-8 #### [facility] CLIA [id number] [address] [place] [address] [place] WBC (Bld) [#/Vol] 14.05 10*3/uL High 3.70-11.00 [facility] Comment on above: Order Comment: Speci men Type: BLOOD SPECIMEN Ordering Facility: [facility] Address: [address] [place] [address] Performed By: #### 5 7021-8 #### [facility] CLIA [id number] [address] [place] [address] [facility] CT BRAIN WO IVCONon 08-31-[address] BRAIN WO IVCON * * *Final Report* * * DATE OF EXAM: Aug 31 2023 4:34PM [facility] 0[facility] - CT BRAIN WO IVCON / PROCEDURE REASON: Head trauma, moderate-severe * * * * Physician Interpretation * * * * EXAMINATION: CT BRAIN WO IVCON CLINICAL HISTORY: Fall TECHNIQUE: Serial axial images without IV contrast were obtained from the vertex to the foramen magnum. MQ: CTBWO_3 CT Radiation dose: Integrated Dose-Length Product (DLP) for this visit = 1067.38 mGy*cm CT Dose Reduction Employed: Automated exposure control(AEC) and iterative recon COMPARISON: Head CT 07/16/2023, 12/10/2021 RESULT: Post-operative change: None. Acute change: No evidence of an acute infarct or other acute parenchymal process. Hemorrhage: No evidence of acute intracranial hemorrhage. ECASS hemorrhagic transformation score: Not Applicable Mass Lesion / Mass Effect: There is no evidence of an intracranial mass or extraaxial fluid collection. No significant mass effect. Chronic change: Patchy foci of low attenuation coefficient are present within the supratentorial white matter which is a nonspecific finding but likely represents moderate microvascular ischemia. Calcific atherosclerosis is noted within both cavernous internal carotid arteries, both vertebral arteries, and basilar artery. Parenchyma: There is moderate generalized volume loss. The brain parenchyma is otherwise within normal limits for age. Ventricles: Ventricular enlargement concordant with the degree of parenchymal volume loss. Paranasal sinuses and skull base: Large left posterior scalp hematoma. Skull base and calvarium are intact. Left maxillary sinus mucus retention cyst. Mucosal thickening within the ethmoid air cells. Clear mastoid air cells. Waiter/Waitress Counter (topogram) images: No additional contributory findings. IMPRESSION: No acute intracranial hemorrhage or mass effect. Large left posterior scalp hematoma without underlying fracture. Fitness/Wellness Director: [facility] Transcribe Date/Time: Aug 31 2023 4:37P Dictated by : SUSY MONDRAGON, This examination was interpreted and the report reviewed and electronically signed by: SUSY MONDRAGON, on Aug 31 2023 4:41PM EST [id number] [facility] CERVICAL SPINE WO IVCONon 08-31-2023 CT CERVICAL SPINE WO IVCON * * *Final Report* * * DATE OF EXAM: Aug 31 2023 4:34PM [facility] [address] - CT CERVICAL SPINE WO IVCON / PROCEDURE REASON: Neck trauma, intoxicated or obtunded (Age >= 16y) * * * * Physician Interpretation * * * * EXAMINATION: CT CERVICAL SPINE WO IVCON CLINICAL HISTORY: Neck trauma, intoxicated or obtunded (Age >= 16y) TECHNIQUE: Spiral, high resolution axial unenhanced images were obtained from the skull base to the cervicothoracic junction with sagittal and coronal planar reconstructions. MQ: CTCSPWO_5 CT Radiation dose: Integrated CT Dose-Length Product (DLP) for this visit = 1067.38 mGy*cm CT Dose Reduction Employed: Automated exposure control(AEC) and iterative recon COMPARISON: None. RESULT: Counting reference: Craniocervical junction. Anatomic Variants: None. Waiter/Waitress Counter (topogram) images: No additional contributory findings. Alignment: Stepwise degenerative 2 mm anterolisthesis of C2 on C3, C3 on C4, and C4 and C5. Craniocervical junction: Craniocervical junction is maintained. Osseous structures/fracture: No evidence of a lytic or blastic process in the visualized spine. No evidence of acute or chronic fracture. Cervical soft tissues: The paraspinal soft tissues are within normal limits. Degenerative changes: Multilevel degenerative disks, uncovertebral hypertrophy, and facet arthropathy. No severe central canal stenosis. IMPRESSION: No acute fracture or traumatic listhesis. Anatomic Variant: None. Assume 7 cervical vertebrae with counting from the craniocervical junction. [facility] Transcribe Date/Time: Aug 31 2023 4:41P Dictated by : SUSY MONDRAGON, This examination was interpreted and the report reviewed and electronically signed by: SUSY MONDRAGON, on Aug 31 2023 4:44PM EST [id number] CN [facility] ECG COMPLETEon 08-31-2023 ECG COMPLETE Ventricular Rate : 54 BPM Atrial Rate : 54 BPM P-R Interval : 186 ms QRS Duration : 120 ms Q-T Interval : 518 ms QTC Calculation(Bazett) : 491 ms Calculated P [place] : 48 degrees Calculated R [place] : 83 degrees Calculated T [place] : 55 degrees Sinus bradycardia Right bundle branch block Abnormal ECG When compared with ECG of 31-AUG-2023 15:36, No significant change was found Confirmed by LESLIE MCMILLAN MD ([id number]) on 08/31/2023 7:40:28 PM NAME : MARCIA ROONEY PID : [id number] : 1945 Gender : Female Race : ORD : [id number] Procedure Date : Aug 31 2023 15:47:01 Edit Date : Aug 31 2023 19:40:30 Diagnosis: Sinus bradycardia Right bundle branch block Abnormal ECG When compared with ECG of 31-AUG-2023 15:36, No significant change was found Confirmed by LESLIE MCMILLAN MD ([id number]) on 08/31/2023 7:40:28 PM Test Reason : STAT Location : 0 : ED 9 Overread By : LESLIE MCMILLAN MD Edited By : LESLIE MCMILLAN MD Referred By : , Acquired by : RNL, [facility] ED NOTEon 08-31-2023 ED NOTE HNO ID: [id number] Author: TESSIE RAMOS RN Service: ? Author Type: Registered Nurse Type: ED Notes Filed: 08/31/2023 19:05 Note Text: Report called to floor [facility] ED NOTE HNO ID: [id number] Author: NIMCO MART Tech Service: ? Author Type: Aurist Type: ED Notes Filed: 08/31/2023 18:19 Note Text: This tech attempted to ambulate pt with a walker. The pt was able to stand up on their own but pt kept complaining of nausea and not feeling well. Pt stated that she did not feel confident enough to walk or to go home by herself and would rather stay here. This tech assisted pt in sitting back on the bed. Placed both side rails up and pt is back on the monitor. This tech informed provider of this and what the pt said. [facility] ED NOTE HNO ID: [id number] Author: JORY MILLIGAN RN Service: ? Author Type: Registered Nurse Type: ED Notes Filed: 08/31/2023 15:52 Note Text: Shivering. Warm blankets given [facility] ED NOTE HNO ID: [id number] Author: JORY MILLIGAN RN Service: ? Author Type: Registered Nurse Type: ED Notes Filed: 08/31/2023 15:43 Note Text: Grace notified patient requesting pain meds for headache [facility] ED NOTE HNO ID: [id number] Author: KARLENE PICKETT RN Service: ? Author Type: Registered Nurse Type: ED Notes Filed: 08/31/2023 14:40 Note Text: Placed on cardiac and SPO2 monitors, skin warm, dry, appropriate color for ethnicity. Alert and oriented x4, GCS 15. No respiratory distress, speaks in full sentences. [facility] ED PROV NOTEon 08-31-2023 ED PROV NOTE HNO ID: [id number] Author: VIDYA GUZMAN PA-C Service: ? Author Type: Physician Cvt Rn Type: ED Provider Notes Filed: 08/31/2023 18:37 Note Text: ED Provider Note Patient Name: Marcia Rooney : 1945 SERVICE DATE: 08/31/23 History Patient presents with: Fall: Head injury-large hematoma to posterior scalp. Pt denies all blood thinners HPI Marcia Rooney is a 77 year old female who presents to the ED due to fall. Patient states she was standing up when she believes she may have stood up too fast, felt dizzy and then fell. She is now complaining of left knee, right arm, head, neck pain. Denies any blood thinner use, denies loss of consciousness. Denies visual changes. She states she has been nauseous and has thrown up a few times. Denies any other injuries or areas of pain. Denies fever, chills, recent ill contacts, SOB, chest pain, abdominal pain, diarrhea Nursing/triage notes, assessments, and vitals were reviewed. See MDM/ED course for further HPI. ROS Review of Systems Negative unless otherwise stated in HPI or MDM PAST MEDICAL HISTORY Diagnosis Date Diabetes (HCC) No past surgical history on file. No family history on file. Social History Tobacco Use Smoking status: Former Packs/day: .5 Types: Cigarettes Smokeless tobacco: Not on file Substance and Sexual Activity Alcohol use: Not Currently Drug use: Never Sexual activity: Not on file ALLERGIES No Known Allergies Physical Exam Physical Exam Vitals [08/31/23 1428] BP Pulse Temp Temp src Resp SpO2 Weight Height 121/75 61 36.4 ?C (97.6 ?F) Oral 19 99 % 99.8 kg (220 lb) 1.676 m (5' 6") General: alert, wearing c-collar HEENT: EOMI, no scleral injection or tearing, mucous membranes moist Scalp hematoma over the left parietal scalp Neck: supple, no stiffness or restricted ROM, trachea midline Lungs: CTAB, good respiratory effort, no crackles, rhonchi, or wheezes Cardiac: RRR, normal S1/S2 Abdomen: soft, nontender, nondistended, no rebound or peritoneal signs Back: no midline or CVA tenderness Extremities: without cyanosis or edema Bony tenderness over the left knee, patient retains full range of motion, no bony step-offs Tenderness over the right elbow, patient retains full range of motion just with increased pain, radial pulse 2+, capillary refill less than 2 seconds in all digits, no areas of ecchymosis or abrasions Skin: warm, dry Neuro: alert, oriented, no lateralized or focal deficits, moving all 4 extremities, no gross weakness, CN grossly intact Psych: normal mood and affect Diagnostic Testing ED Labs Ordered and Reviewed CBC + DIFF - Abnormal; Notable for the following components: Result Value Ref Range WBC 14.05 (*) 3.70 - 11.00 k/uL Abs Neut 13.08 (*) 1.45 - 7.50 k/uL Abs Lymph 0.53 (*) 1.00 - 4.00 k/uL All other components within normal limits BASIC METABOLIC PNL - Normal MAGNESIUM BLD - Normal HIGH SENSITIVITY TROPONIN I - Normal HIGH SENSITIVITY TROPONIN I XR ELBOW SPECIAL VIEWS AP/LAT/OTHER RIGHT Final Result IMPRESSION: The osseous structures are intact without acute fracture or dislocation. No evidence of joint effusion. Radiocapitellar and ulnotrochlear joints are maintained. Small osteophytes at the ulnar trochlear joint. No other significant abnormality. Fitness/Wellness Director: VLAD Transcribe Date/Time: Aug 31 2023 5:08P Dictated by : LETICIA ELI MD This examination was interpreted and the report reviewed and electronically signed by: LETICIA ELI MD on Aug 31 2023 5:10PM EST XR KNEE INJURY 4V AP/LAT/OBLS LEFT Final Result IMPRESSION: Moderately advanced osteoarthritis with marked medial joint compartment narrowing and tricompartmental osteophytosis. No acute fracture or dislocation. Small effusion. Atherosclerotic changes. Diffuse osteopenia. No other significant abnormality. Fitness/Wellness Director: [facility] Transcribe Date/Time: Aug 31 2023 5:27P Dictated by : LETICIA ELI MD This examination was interpreted and the report reviewed and electronically signed by: LETICIA ELI MD on Aug 31 2023 5:29PM EST CT CERVICAL SPINE WO IVCON Final Result IMPRESSION: No acute fracture or traumatic listhesis. Anatomic Variant: None. Assume 7 cervical vertebrae with counting from the craniocervical junction. Fitness/Wellness Director: VLAD Transcribe Date/Time: Aug 31 2023 4:41P Dictated by : SUSY MONDRAGON, This examination was interpreted and the report reviewed and electronically signed by: SUSY MONDRAGON, on Aug 31 2023 4:44PM EST CT BRAIN WO IVCON Final Result IMPRESSION: No acute intracranial hemorrhage or mass effect. Large left posterior scalp hematoma without underlying fracture. Fitness/Wellness Director: [facility] Transcribe Date/Time: Aug 31 2023 4:37P Dictated by : SUSY MONDRAGON, This examination was interpreted and the report reviewed and electronically signed by: SUSY MONDRAGON, on Aug 31 2 (more content not included)... Normal [facility] HIGH SENSITIVITY TROPONIN Io n 08-31-2023 Tropinin I.cardiac panel High sensitivity method 5.5 pg/mL Normal 0.0-34.0 [facility] Comment on above: Order Comment: Sanjuana cazares Type: BLOOD SPECIMEN Ordering Facility: [facility] Address: [address] [place] [address] Result Comment: This assay uses different antibodies than our current assay, and assays, even by the same ambulatory technologist may recognize different regions of the antibody and cannot be used interchangeably. Expect results of this assay to run higher than the previous assay. Performed By: #### 1 9123-9, 41480-6 #### [facility] CLIA [id number] [address] [place] [address] Tropinin I.cardiac panel High sensitivity method 4.7 pg/mL Normal 0.0-34.0 [facility] Comment on above: Order Comment: Sanjuana cazares Type: BLOOD SPECIMEN Ordering Facility: [facility] Address: [address] [place] [address] Result Comment: This assay uses different antibodies than our current assay, and assays, even by the same ambulatory technologist may recognize different regions of the antibody and cannot be used interchangeably. Expect results of this assay to run higher than the previous assay. Performed By: #### H STROP #### [facility] CLIA [id number] [address] [place] [address] [place] HISTORY PHYSICALon 4 HISTORY PHYSICAL HNO ID: [id number] Author: ELIA ANDRES DO Service: Hospital Medicine Author Type: Physician Type: H&P Filed: 08/31/2023 19:01 Note Text: HISTORY AND PHYSICAL SERVICE DATE: 08/31/2023 SERVICE TIME: 6:52 PM PRIMARY CARE PHYSICIAN: FAMILY ESTEPHANIE EDGAR MD Subjective CHIEF COMPLAINT: Weakness HPI: Patient is a 77-year-old female who presents today to the [facility] emergency department following a fall at home. According to the patient she was using the restroom earlier this morning. Upon exiting the restroom she lost her balance and fell. She was on the ground for several hours and was unable to get up. A friend finally showed up to her residence and saw her on the ground. EMS was called. Upon arrival to the emergency department the patient was found to be hemodynamically stable. On exam a left-sided scalp hematoma was appreciated. Routine labs revealed an elevated white blood cell count of 14.05. High-sensitivity troponin was within normal limits. Multiple imaging modalities were obtained. A large left-posterior scalp hematoma was seen but there was no evidence of fracture. PAST MEDICAL HISTORY: Type II diabetes mellitus Hypothyroidism Depression PAST SURGICAL HISTORY: Appendectomy Cholecystectomy Tonsillectomy FAMILY HISTORY: Mother: hypertension SOCIAL HISTORY: Denies tobacco, EtOH, and illicits ALLERGIES: No Known Allergies REVIEW OF SYSTEMS: Constitutional: admits to weakness, no fever/chills/sweats, no fatigue, no weight gain/loss HEENT: no vision changes, no hearing loss, no nasal congestion/drainage, no sore throat Cardiovascular: no chest pain, no palpitations, no orthopnea, no leg swelling, no syncope Respiratory: no shortness of breath, no cough, no sputum production, no wheezing, no hemoptysis Gastrointestinal: no abdominal pain, no nausea/vomiting, no diarrhea, no constipation, no bloody stool, no loss of appetite Genitourinary: no dysuria, no hematuria, no retention, no urgency, no penile/vaginal discharge, no vaginal bleeding Musculoskeletal: no joint pain/swelling, no back pain, no muscle aches Skin: no rashes Lymphatic: no enlarged lymph nodes Endocrine: no polyuria, no polydipsia, no temperature intolerance Neurology: no headache, no dizziness, no numbness, no weakness, no tingling, no difficulty with speech Psychiatry: no anxiety, no depression, no suicidal ideation MEDICATIONS: Current Outpatient Medications Medication Sig bumetanide (BUMEX) 1 mg tablet glipiZIDE (GLUCOTROL XL) 5 mg 24 hr tablet Take 5 mg by mouth. TOUJEO SOLOSTAR U-300 INSULIN 300 unit/mL (1.5 mL) ADMINISTER 20 UNITS UNDER THE SKIN TWICE DAILY. levothyroxine (SYNTHROID) 150 mcg tablet Take 1 tablet by mouth every afternoon. venlafaxine ER (EFFEXOR XR) 37.5 mg 24 hr capsule Objective BP 139/58 Pulse 58 Temp (Src) 97.6 (Oral) Resp 22 Ht 5' 6" (1.68m) Wt 220 lb (99.8kg) SpO2 96% BMI 35.53 kg/(m2). O2 Therapy: Room Air PHYSICAL EXAM: General: alert and oriented x3, resting comfortably HEENT: hematoma over left side of scalp Neck: supple, no hepatojugular reflux or jugular venous distention, no carotid bruits Lungs: clear to auscultation bilaterally, no wheezing, rales, or rhonchi Cardiac: regular rate and rhythm, normal S1 and S2, no murmurs, gallops, or rubs Abdomen: soft, nontender, nondistended, bowel sounds present Extremities: no edema, cyanosis, or clubbing Skin: no rashes or breakdown Lymphatic: no cervical or supraclavicular lymphadenopathy Neurologic: cranial nerves II-XII are grossly intact Psychiatry: normal affect, no hallucinations, no suicidal ideation DATA: Recent Results (from the past 24 hour(s)) CBC + DIFF Collection Time: 08/31/23 3:39 PM Result Value Ref Range WBC 14.05 (H) 3.70 - 11.00 k/uL RBC 4.40 3.90 - 5.20 m/uL Hemoglobin 13.4 11.5 - 15.5 g/dL Hematocrit 41.0 36.0 - 46.0 % MCV 93.2 80.0 - 100.0 fL MCH 30.5 26.0 - 34.0 pg MCHC 32.7 30.5 - 36.0 g/dL RDW-CV 14.2 11.5 - 15.0 % Platelet Count 257 150 - 400 k/uL MPV 9.4 9.0 - 12.7 fL Neutrophils % 93.1 % Abs Neut 13.08 (H) 1.45 - 7.50 k/uL Lymphocytes % 3.8 % Abs Lymph 0.53 (L) 1.00 - 4.00 k/uL Monocytes % 2.6 % Abs [place] 0.37 <0.87 k/uL Eosinophils % 0.0 % Abs Eosin <0.03 <0.46 k/uL Basophils % 0.1 % Abs Baso <0.03 <0.11 k/uL Immature Granulocytes % 0.4 % Abs Immature Gran 0.05 <0.10 k/uL NRBC 0.0 /100 WBC Absolute nRBC <0.01 <0.01 k/uL Diff Type Auto BASIC METABOLIC PNL Collection Time: 08/31/23 3:39 PM Result Value Ref Range Glucose 94 70 - 100 mg/dL BUN 22 7 - 26 mg/dL Creatinine 0.72 0.51 - 0.95 mg/dL Sodium 139 136 - 145 mmol/L Potassium 3.8 3.5 - 5.1 mmol/L Chloride 101 98 - 107 mmol/L CO2 31 21 - 32 mmol/L Anion Gap 7 5 - 16 mmol/L Calcium, Total 9.5 8.5 - 10.5 mg/dL Estimated Glomerular Filtration Rate 86 >=60 mL/min/1.73m? MAGNESIUM BLD Collection Time: (more content not included)... Normal [facility] Magnesium SerPl-mCncon 08-31 Magnesium [Mass/Vol] 2.2 mg/dL Normal 1.6-2.6 [facility] Comment on above: Order Comment: Speci men Type: BLOOD SPECIMEN Ordering Facility: [facility] Address: [address] [place] [id number] Performed By: #### H STROP #### [facility] CLIA [id number] [address] [place] [address] [place] XR ELBOW 3V AP/LAT/OTHER RTo n 08-31-2023 XR ELBOW 3V AP/LAT/OTHER RT * * *Final Report* * * DATE OF EXAM: Aug 31 2023 5:02PM [facility] 5325 - XR ELBOW 3V AP/LAT/OTHER RT / PROCEDURE REASON: Elbow trauma, no prior imaging * * * * Physician Interpretation * * * * EXAMINATION: XR ELBOW 3V AP/LAT/OTHER RT HISTORY: fell today has bruising rt post. elbow Elbow trauma, no prior imaging . TECHNIQUE: XR ELBOW 3V AP/LAT/OTHER RT Laterality: RIGHT Number of different views (projections): 3 M: XB_1 COMPARISON: None RESULT/ IMPRESSION: The osseous structures are intact without acute fracture or dislocation. No evidence of joint effusion. Radiocapitellar and ulnotrochlear joints are maintained. Small osteophytes at the ulnar trochlear joint. No other significant abnormality. Fitness/Wellness Director: [facility] Transcribe Date/Time: Aug 31 2023 5:08P Dictated by : LETICIA ELI MD This examination was interpreted and the report reviewed and electronically signed by: LETICIA ELI MD on Aug 31 2023 5:10PM EST [id number] [facility] XR KNEE 4V AP/LAT/OBLS LTon 08-31-2023 XR KNEE 4V AP/LAT/OBLS LT * * *Final Report* * * DATE OF EXAM: Aug 31 2023 5:02PM [facility] 5204 - XR KNEE 4V AP/LAT/OBLS LT / PROCEDURE REASON: Trauma * * * * Physician Interpretation * * * * EXAMINATION: XR KNEE 4V AP/LAT/OBLS LT HISTORY: fell today has pain lt. knee Trauma. TECHNIQUE: XR KNEE 4V AP/LAT/OBLS LT Laterality: LEFT Number of different views (projections): 4 M: XB_1 COMPARISON: None RESULT/ IMPRESSION: Moderately advanced osteoarthritis with marked medial joint compartment narrowing and tricompartmental osteophytosis. No acute fracture or dislocation. Small effusion. Atherosclerotic changes. Diffuse osteopenia. No other significant abnormality. Fitness/Wellness Director: [employer] Transcribe Date/Time: Aug 31 2023 5:27P Dictated by : LETICIA ELI MD This examination was interpreted and the report reviewed and electronically signed by: LETICIA ELI MD on Aug 31 2023 5:29PM EST [id number] CN [facility] CT BRAIN WO IVCONon 07-16-20 CT BRAIN WO IVCON * * *Final Report* * * DATE OF EXAM: Jul 16 2023 12:16AM [facility] 0504 - CT BRAIN WO IVCON / PROCEDURE REASON: Mental status change, unknown cause * * * * Physician Interpretation * * * * EXAMINATION: CT BRAIN WO IVCON CLINICAL HISTORY: Altered mental status TECHNIQUE: Serial axial images without IV contrast were obtained from the vertex to the foramen magnum. MQ: CTBWO_3 CT Radiation dose: Integrated Dose-Length Product (DLP) for this visit = 653.82 mGy*cm CT Dose Reduction Employed: Iterative recon COMPARISON: None. FINDINGS: No acute infarct. No acute intracranial hemorrhage. No hydrocephalus. No mass effect, or midline shift. Patent basilar cisterns. There are moderate scattered white matter changes, commonly reflecting the sequelae of chronic microvascular disease. Unchanged small remote lacunar insults at the left caudate head. There is moderate diffuse parenchymal volume loss. Major intracranial vasculature is unremarkable. The paranasal sinuses are relatively well-pneumatized. The imaged orbits are unremarkable. The tympanomastoid cavities are clear. The calvarium and extracranial soft tissues are intact. IMPRESSION: No acute intracranial abnormality. F[facility]Wellness Director[facility] Transcribe Date/Time: Jul 16 2023 12:16A Dictated by : MICKEY ZEPEDA MD This examination was interpreted and the report reviewed and electronically signed by: MICKEY ZEPEDA MD on Jul 16 2023 12:22AM EST [id number] CN [facility] ED NOTEon 07-16-2023 ED NOTE HNO ID: [id number] Author: Nicolasa Hernandez RN Service: Nursing Author Type: Registered Nurse Type: ED Notes Filed: 07/16/2023 2:53 AM Note Text: Pt. Assisted with minimal assistance to get dressed. Pt. Assisted to bathroom via wheelchair. Gait unsteady. Pt. Does get dizzy, but recovers quickly. Pt. In wheelchair now until her son arrives to pick her up. [facility] ED NOTE HNO ID: [id number] Author: Nicolasa Hernandez RN Service: Nursing Author Type: Registered Nurse Type: ED Notes Filed: 07/16/2023 2:19 AM Note Text: Son, Bandar, has been updated on plan of care tonight. MD has recommended that son addresses concerns with PCP for further referrals if needed. This has been relayed. Son verb's understanding. Normal [facility] ED NOTE HNO ID: [id number] Author: Nicolasa Hernandez, RN Service: Nursing Author Type: Registered Nurse Type: ED Notes Filed: 07/16/2023 1:29 AM Note Text: FSBS 98; insulin pen appeared unused, with needle in place with metered dose of 17 units ready. Pt. Denied usage, appears alert and oriented at this time. Insulin pen removed from possession at this time. MD notified. [facility] ED NOTE HNO ID: [id number] Author: Nicolasa Hernandez, RN Service: Nursing Author Type: Registered Nurse Type: ED Notes Filed: 07/16/2023 1:20 AM Note Text: Son called hospital and states he believes she's becoming more confused and may have taken her own insulin while here. [facility] ED NOTE HNO ID: [id number] Author: Nicolasa Hernandez, RN Service: Nursing Author Type: Registered Nurse Type: ED Notes Filed: 07/16/2023 1:07 AM Note Text: Pt.'s son tin's concern for pt. D/t living situation (lives alone) and the fact it seems pt. Is not caring for herself at home. Pt. Admits to this RN that she does not know why she's here tonight. I've reinforced that her BGL was too low. Pt. Argues that she's managed her blood sugar for 40+ years and she denies that her son cares or knows what's best for her. Son reports pt. Has been found multiple times on the floor with dangerously low blood sugars." [facility] ED NOTE HNO ID: [id number] Author: Nicolasa Hernandez, RN Service: Nursing Author Type: Registered Nurse Type: ED Notes Filed: 07/16/2023 12:46 AM Note Text: Report from previous nurse. Assumed care at this time. [facility] CBC W Auto Differential pane l (Bld)on 07-15-2023 Basophils (Bld) [#/Vol] 10*3/uL Normal <0.11 M [facility] Comment on above: Order Comment: Speci men Type: BLOOD SPECIMEN Ordering Facility: [facility] Address: [address] [place], [place] [id number] Performed By: #### 5 7021-8 #### [facility] CLIA [id number] [address] [place] [address] [place] Basophils/100 WBC (Bld) 0.2 % Normal [facility] Comment on above: Order Comment: Speci men Type: BLOOD SPECIMEN Ordering Facility: [facility] Address: [address] [place] [address] Performed By: #### 5 7021-8 #### [facility] CLIA [id number] [address] [place] [address] [place] Differential cell count method Nom (Bld) Auto Normal [facility] Comment on above: Order Comment: Speci men Type: BLOOD SPECIMEN Ordering Facility: [facility] Address: [address] [place] [address] Performed By: #### 5 7021-8 #### [facility] CLIA [id number] [address] [place] [address] [place] Eosinophils (Bld) [#/Vol] 0.04 10*3/uL Normal <0.46 [facility] Comment on above: Order Comment: Speci men Type: BLOOD SPECIMEN Ordering Facility: [facility] Address: [address] [place] [address] Performed By: #### 5 7021-8 #### [facility] CLIA [id number] [address] [place] [address] [place] Eosinophils/100 WBC (Bld) 0.7 % Normal [facility] Comment on above: Order Comment: Speci men Type: BLOOD SPECIMEN Ordering Facility: [facility] Address: [address] [place] [address] Performed By: #### 5 7021-8 #### [facility] CLIA [id number] [address] [place] [address] [place] Erythrocyte distribution width (RBC) [Ratio] 14.6 % Normal 11.5-15.0 [facility] Comment on above: Order Comment: Speci men Type: BLOOD SPECIMEN Ordering Facility: [facility] Address: [address] [place], [place] [address] [id number] Performed By: #### 5 7021-8 #### [facility] CLIA [id number] [address] [place] [address] [place] Hematocrit (Bld) [Volume fraction] 36.4 % Normal 36.0-46.0 [facility] Comment on above: Order Comment: Speci men Type: BLOOD SPECIMEN Ordering Facility: [facility] Address: [address] [place] [address] Performed By: #### 5 7021-8 #### [facility] CLIA [id number] [address] [place] [address] [place] Hemoglobin (Bld) [Mass/Vol] 12.0 g/dL Normal 11.5-15.5 [facility] Comment on above: Order Comment: Speci men Type: BLOOD SPECIMEN Ordering Facility: [facility] Address: [address] [place] [address] Performed By: #### 5 7021-8 #### [facility] CLIA [id number] [address] [place] [address] [place] Immature granulocytes (Bld) [#/Vol] 10*3/uL Normal <0.10 [facility] Comment on above: Order Comment: Speci men Type: BLOOD SPECIMEN Ordering Facility: [facility] Address: [address] [place] [address] Performed By: #### 5 7021-8 #### [facility] CLIA [id number] [address] [place] [address] [place] Immature granulocytes/100 WBC (Bld) 0.3 % Normal [facility] Comment on above: Order Comment: Speci men Type: BLOOD SPECIMEN Ordering Facility: [facility] Address: [address] [place] [address] Performed By: #### 5 7021-8 #### [facility] CLIA [id number] [address] [place] [address] [place] Lymphocytes (Bld) [#/Vol] 1.17 10*3/uL Normal 1.00-4.00 [facility] Comment on above: Order Comment: Speci men Type: BLOOD SPECIMEN Ordering Facility: [facility] Address: [address] [place] [address] Performed By: #### 5 7021-8 #### [facility] CLIA [id number] [address] [place] [address] [place] Lymphocytes/100 WBC (Bld) 20.4 % Normal [facility] Comment on above: Order Comment: Speci men Type: BLOOD SPECIMEN Ordering Facility: [facility] Address: [address] [place] [address] Performed By: #### 5 7021-8 #### [facility] CLIA [id number] [address] [place] [address] [place] MCH (RBC) [Entitic mass] 30.4 pg Normal 26.0-34.0 [facility] Comment on above: Order Comment: Speci men Type: BLOOD SPECIMEN Ordering Facility: [facility] Address: [address] [place] [address] Performed By: #### 5 7021-8 #### [facility] CLIA [id number] [address] [place] [address] [place] MCHC (RBC) [Mass/Vol] 33.0 g/dL Normal 30.5-36.0 [facility] Comment on above: Order Comment: Speci men Type: BLOOD SPECIMEN Ordering Facility: [facility] Address: [address] [place] [address] Performed By: #### 5 7021-8 #### [facility] CLIA [id number] [address] [place] [address] [place] MCV (RBC) [Entitic vol] 92.2 fL Normal 80.0-100.0 M [facility] Comment on above: Order Comment: Speci men Type: BLOOD SPECIMEN Ordering Facility: [facility] Address: [address] [place] [address] Performed By: #### 5 7021-8 #### [facility] CLIA [id number] [address] [place] [address] [place] Monocytes (Bld) [#/Vol] 0.39 10*3/uL Normal <0.87 [facility] Comment on above: Order Comment: Speci men Type: BLOOD SPECIMEN Ordering Facility: [facility] Address: [address] [place] [address] Performed By: #### 5 7021-8 #### [facility] CLIA [id number] [address] [place] [address] [place] Monocytes/100 WBC (Bld) 6.8 % Normal [facility] Comment on above: Order Comment: Speci men Type: BLOOD SPECIMEN Ordering Facility: [facility] Address: [address] [place] [address] Performed By: #### 5 7021-8 #### [facility] CLIA [id number] [address] [place] [address] [place] Neutrophils (Bld) [#/Vol] 4.11 10*3/uL Normal 1.45-7.50 [facility] Comment on above: Order Comment: Speci men Type: BLOOD SPECIMEN Ordering Facility: [facility] Address: [address] [place] [address] Performed By: #### 5 7021-8 #### [facility] CLIA [id number] [address] [place] [address] [place] Neutrophils/100 WBC (Bld) 71.6 % Normal [facility] Comment on above: Order Comment: Speci men Type: BLOOD SPECIMEN Ordering Facility: [facility] Address: [address] [place] [address] Performed By: #### 5 7021-8 #### [facility] CLIA [id number] [address] [place] [address] [place] Nucleated RBC (Bld) [#/Vol] 10*3/uL Normal <0.01 [facility] Comment on above: Order Comment: Speci men Type: BLOOD SPECIMEN Ordering Facility: [facility] Address: [address] [place] [address] Performed By: #### 5 7021-8 #### [facility] CLIA [id number] [address] [place] [address] [place] Nucleated RBC/100 WBC (Bld) [Ratio] 0.0 /100 WBC Normal [facility] Comment on above: Order Comment: Speci men Type: BLOOD SPECIMEN Ordering Facility: [facility] Address: [address] [place] [address] Performed By: #### 5 7021-8 #### [facility] CLIA [id number] [address] [place] [address] [place] Platelet mean volume (Bld) [Entitic vol] 9.5 fL Normal 9.0-12.7 [facility] Comment on above: Order Comment: Speci men Type: BLOOD SPECIMEN Ordering Facility: [facility] Address: [address] [place] [address] Performed By: #### 5 7021-8 #### [facility] CLIA [id number] [address] [place] [address] [place] Platelets (Bld) [#/Vol] 232 10*3/uL Normal 150-400 [facility] Comment on above: Order Comment: Speci men Type: BLOOD SPECIMEN Ordering Facility: [facility] Address: [address] [place] [address] Performed By: #### 5 7021-8 #### [facility] CLIA [id number] [address] [place] [address] [place] RBC (Bld) [#/Vol] 3.95 10*6/uL Normal 3.90-5.20 [facility] Comment on above: Order Comment: Speci men Type: BLOOD SPECIMEN Ordering Facility: [facility] Address: [address] [place] [address] Performed By: #### 5 7021-8 #### [facility] CLIA [id number] [address] [place] [address] [place] WBC (Bld) [#/Vol] 5.74 10*3/uL Normal 3.70-11.00 [facility] Comment on above: Order Comment: Speci men Type: BLOOD SPECIMEN Ordering Facility: [facility] Address: [address] [place] [address] Performed By: #### 5 7021-8 #### [facility] CLIA [id number] [address] [place], [place] [address] [place] [facility] [place] Comprehensive metabolic 2000 panelon 07-15-2023 Albumin [Mass/Vol] 3.6 g/dL Normal 3.2-5.0 [facility] Comment on above: Order Comment: Speci men Type: BLOOD SPECIMEN Ordering Facility: [facility] Address: [address] [place] [address] Performed By: #### 1 9123-9, 82861-8 #### [facility] CLIA [id number] [address] [place] [address] [place] ALP [Catalytic activity/Vol] 153 U/L High 45-117 [facility] Comment on above: Order Comment: Speci men Type: BLOOD SPECIMEN Ordering Facility: [facility] Address: [address] [place] [address] Performed By: #### 1 9123-9, 68911-8 #### [facility] CLIA [id number] [address] [place] [address] [place] ALT [Catalytic activity/Vol] U/L Low 13-61 [facility] Comment on above: Order Comment: Speci men Type: BLOOD SPECIMEN Ordering Facility: [facility] Address: [address] [place] [address] Result Comment: Resu lts may be falsely depressed after the administration of Sulfasalazine and/or Sulfapyridine. Performed By: #### 1 9123-9, 19978-6 #### [facility] CLIA [id number] [address] [place] [address] [place] Anion gap [Moles/Vol] 6 mmol/L Normal 5-16 [facility] Comment on above: Order Comment: Speci men Type: BLOOD SPECIMEN Ordering Facility: [facility] Address: [address] [place] [address] Performed By: #### 1 9123-, 84602-1 #### [facility] CLIA [id number] [address] [place], [place] [address] [place] AST [Catalytic activity/Vol] 19 U/L Normal 8-34 [facility] Comment on above: Order Comment: Speci men Type: BLOOD SPECIMEN Ordering Facility: [facility] Address: [address] [place] [address] Result Comment: Resu lts may be falsely depressed after the administration of Sulfasalazine and/or Sulfapyridine. Performed By: #### 1 9123-9, #### [facility] CLIA [id number] [address] [place] [address] [place] Bilirubin [Mass/Vol] 1.4 mg/dL High 0.2-1.0 [facility] Comment on above: Order Comment: Speci men Type: BLOOD SPECIMEN Ordering Facility: [facility] Address: [address] [place] [address] Performed By: #### 1 9123, #### [facility] CLIA [id number] [address] [place] [address] [place] Calcium [Mass/Vol] 9.4 mg/dL Normal 8.5-10.5 [facility] Comment on above: Order Comment: Speci men Type: BLOOD SPECIMEN Ordering Facility: [facility] Address: [address] [place] [address] Performed By: #### 1 91239, #### [facility] CLIA [id number] [address] [place], [place] [address] [place] Chloride [Moles/Vol] 104 mmol/L Normal 98-107 [facility] Comment on above: Order Comment: Speci men Type: BLOOD SPECIMEN Ordering Facility: [facility] Address: [address] [place] [address] Performed By: #### 1 91239, #### [facility] CLIA [id number] [address] [place] [address] [place] CO2 [Moles/Vol] 30 mmol/L Normal 21-32 [facility] Comment on above: Order Comment: Sanjuana cazares Type: BLOOD SPECIMEN Ordering Facility: [facility] Address: [address] [place] [address] Performed By: #### 1 9123-9, #### [facility] CLIA [id number] [address] [place] [address] [place] Creatinine [Mass/Vol] 0.68 mg/dL Normal 0.51-0.95 [facility] Comment on above: Order Comment: Sanjuana cazares Type: BLOOD SPECIMEN Ordering Facility: [facility] Address: [address] [place] [address] Result Comment: Jacqueline ents receiving either N-Acetylcysteine (NAC) or Metamizole prior to venipuncture, may have falsely depressed results. Performed By: #### 1 9123-9, #### [facility] CLIA [id number] [address] [place] [address] Creatinine and Glomerular filtration rate.predicted panel (S/P/Bld) 90 mL/min/1.73m??? Normal >=60 [facility] Comment on above: Order Comment: Sanjuana cazares Type: BLOOD SPECIMEN Ordering Facility: [facility] Address: [address] [place] [address] Result Comment: Paula mated Glomerular Filtration Rate (eGFR) is calculated using the 2020 CKD-EPI creatinine equation. This equation utilizes serum creatinine, sex, and age as parameters. The creatinine assay has traceable calibration to isotope dilution-mass spectrometry. Refer to KDIGO guidelines for clinical interpretation. In patients with unstable renal function, e.g. those with acute kidney injury, the eGFR may not accurately reflect actual GFR. Performed By: #### 1 9123-9, 05991-0 #### [facility] CLIA [id number] [address] [place] [address] [place] Glucose [Mass/Vol] 53 mg/dL Low 70-100 [facility] Comment on above: Order Comment: Sanjuana cazares Type: BLOOD SPECIMEN Ordering Facility: [facility] Address: [address] [place] [address] Result Comment: The [place] [employer] (ADA) provides guidance for cutoff values for fasting glucose and random glucose. The ADA defines fasting as no caloric intake for at least 8 hours. Fasting plasma glucose results between 100 to 125 mg/dL indicate increased risk for diabetes (prediabetes). Fasting plasma glucose results greater than or equal to 126 mg/dL meet the criteria for diagnosis of diabetes. In the absence of unequivocal hyperglycemia, results should be confirmed by repeat testing. In a patient with classic symptoms of hyperglycemia or hyperglycemic crisis, random plasma glucose results greater than or equal to 200 mg/dL meet the criteria for diagnosis of diabetes. Reference: Standards of Medical Care in Diabetes 2016, [place] [employer]. Diabetes Care. 2016.39(Suppl 1). Results may be falsely elevated after the administration of Sulfapyridine. Results may be falsely depressed after the administration of Sulfasalazine. Performed By: #### 1 9123-9, #### [facility] CLIA [id number] [address] [place] [address] [place] Potassium [Moles/Vol] 3.3 mmol/L Low 3.5-5.1 [facility] Comment on above: Order Comment: Sanjuana cazares Type: BLOOD SPECIMEN Ordering Facility: [facility] Address: [address] [place] [address] Performed By: #### 1 23-9, #### [facility] CLIA [id number] [address] [place] [address] [place] Protein [Mass/Vol] 6.3 g/dL Normal 6.0-8.5 [facility] Comment on above: Order Comment: Anahii debora Type: BLOOD SPECIMEN Ordering Facility: [facility] Address: [address] [place], [place] [id number] Performed By: #### 1 9123-9, #### [facility] CLIA [id number] [address] [place] [address] [place] Sodium [Moles/Vol] 140 mmol/L Normal 136-145 [facility] Comment on above: Order Comment: Anahii men Type: BLOOD SPECIMEN Ordering Facility: [facility] Address: [address] [place] [address], [place] [address] Performed By: #### 1 9123-9, 48372-7 #### [facility] CLIA [id number] [address] [place], [place] [address] [place] Urea nitrogen [Mass/Vol] 11 mg/dL Normal 02-14 [facility] Comment on above: Order Comment: Speci men Type: BLOOD SPECIMEN Ordering Facility: [facility] Address: [place] [id number] Performed By: #### 1 9123-9, 52543-6 #### [facility] CLIA [id number] [address] [place], [place] [address] [place] ECG COMPLETEon 07-15-2023 ECG COMPLETE Ventricular Rate : 68 BPM Atrial Rate : 68 BPM P-R Interval : 192 ms QRS Duration : 128 ms Q-T Interval : 452 ms QTC Calculation(Bazett) : 480 ms Calculated P [place] : 10 degrees Calculated R [place] : 55 degrees Calculated T [place] : 16 degrees Normal sinus rhythm Right bundle branch block Abnormal ECG No previous ECGs available Confirmed by LESLIE MCMILLAN MD ([id number]) on 07/16/2023 10:58:49 AM NAME : MARCIA ROONEY PID : [id number] : 1945 Gender : Female Race : ORD : [id number] Procedure Date : Jul 15 2023 22:08:48 Edit Date : Jul 16 2023 10:58:54 Diagnosis: Normal sinus rhythm Right bundle branch block Abnormal ECG No previous ECGs available Confirmed by LESLIE MCMILLAN MD ([id number]) on 07/16/2023 10:58:49 AM Test Reason : STAT Location : 0 : ED 48 Overread By : LESLIE MCMILLAN MD Edited By : LESLIE MCMILLAN MD Referred By : , Acquired by : Laura MOREIRA [facility] ED NOTEon 07-15-2023 ED NOTE HNO ID: [id number] Author: Madeleine Lo RN Service: ? Author Type: Registered Nurse Type: ED Notes Filed: 07/15/2023 11:33 PM Note Text: Pt states she fell out of bed two months ago, has been confused since. This was verified by Bandar (son) while he was on the phone. Normal [facility] ED NOTE HNO ID: [id number] Author: Lyssa Cast RN Service: ? Author Type: Registered Nurse Type: ED Notes Filed: 07/15/2023 10:05 PM Note Text: Bed: 48-ED Expected date: Expected time: Means of arrival: Comments: [facility] ED PROV NOTEon 07-15-2023 ED PROV NOTE HNO ID: [id number] Author: Gilbert Howell DO Service: ? Author Type: Physician Type: ED Provider Notes Filed: 07/18/2023 8:05 AM Note Text: ED Provider Note Patient Name: Marcia Rooney : 1945 SERVICE DATE: 07/15/23 History Patient presents with: Altered Level Of Consciousness: Son called EMS for altered mental status. He reported to EMS a steady decline over time. Glucose for them was 60s, they gave her oral glucose and get her into the 70s. For us her glucose is 56. Giving orange juice now. Pt appears lightly jaundiced. Smells of a UTI. Patient is a 77-year-old female with a past medical history of diabetes who presents to the emergency department for confusion. She states that this has been going on all day. She was found to have a low blood sugar. She does not believe that she ate today. She is unsure if she even took her insulin. Son did call and states that she did have a fall 2 months prior and he feels like she has had a general decline since then. Patient is denying any headache, vision changes. No unilateral weakness or loss of sensation. She denies chest pain or shortness of breath. She denies recent illness including fever/chills, cough, nausea/vomiting, diarrhea or urinary symptoms. Patient was given oral glucose by EMS. She is still found to be mildly hypoglycemic on arrival to the ER and was given orange juice. She is starting to feel significantly improved. No past medical history on file. No past surgical history on file. No family history on file. Social History Tobacco Use Smoking status: Not on file Smokeless tobacco: Not on file Substance and Sexual Activity Alcohol use: Not on file Drug use: Not on file Sexual activity: Not on file ALLERGIES No Known Allergies Review of Systems Physical Exam Vitals [07/15/236] BP Pulse Temp Temp src Resp SpO2 Weight Height 114/66 63 36.5 ?C (97.7 ?F) -- 17 99 % 99.8 kg (220 lb) 1.676 m (5' 6") Physical Exam Vitals and nursing note reviewed. Constitutional: General: She is not in acute distress. Appearance: Normal appearance. She is not ill-appearing. HENT: Head: Normocephalic and atraumatic. Mouth/Throat: Mouth: Mucous membranes are moist. Eyes: Extraocular Movements: Extraocular movements intact. Pupils: Pupils are equal, round, and reactive to light. Cardiovascular: Rate and Rhythm: Normal rate and regular rhythm. Heart sounds: No murmur heard. Pulmonary: Effort: Pulmonary effort is normal. Breath sounds: Normal breath sounds. Abdominal: General: There is no distension. Palpations: Abdomen is soft. Tenderness: There is no abdominal tenderness. Musculoskeletal: General: Normal range of motion. Cervical back: Normal range of motion and neck supple. Skin: General: Skin is warm and dry. Capillary Refill: Capillary refill takes less than 2 seconds. Findings: No rash. Neurological: General: No focal deficit present. Mental Status: She is alert. Mental status is at baseline. Comments: Answering all questions appropriately. Does not have appear to have confusion at this time. Has no focal neurological deficits. Diagnostic Testing ED Labs Ordered and Reviewed GLUCOSE, BLOOD (POC) - Abnormal; Notable for the following components: Result Value Ref Range Glucose, Point of Care 56 (*) 74 - 99 mg/dL All other components within normal limits COMP METABOLIC PANEL - Abnormal; Notable for the following components: Bilirubin, Total 1.4 (*) 0.2 - 1.0 mg/dL Alkaline Phosphatase 153 (*) 45 - 117 U/L ALT <7 (*) 13 - 61 U/L Glucose 53 (*) 70 - 100 mg/dL Potassium 3.3 (*) 3.5 - 5.1 mmol/L All other components within normal limits URINALYSIS WITH MICROSCOPIC, REFLEX CULTURE - Abnormal; Notable for the following components: Specific [place], Ur <1.005 (*) 1.005 - 1.030 Bacteria Rare (*) None Seen /HPF All other components within normal limits GLUCOSE, BLOOD (POC) - Abnormal; Notable for the following components: Glucose, Point of Care 130 (*) 74 - 99 mg/dL All other components within normal limits MAGNESIUM BLD - Normal HIGH SENSITIVITY TROPONIN I - Normal CBC + DIFF GLUCOSE, BLOOD (POC) GLUCOSE, BLOOD (POC) GLUCOSE, BLOOD (POC) Procedures ED Course / Clinical Impression Clinical Impressions as of 07/18/23 0804 Hypoglycemia MDM / Disposition / Plan Patient presents to the ER for altered mentation throughout the day. Son was concerned that this has been an ongoing issue for the past 2 months that she hit her head. She was found to be hypoglycemic today. She was treated with oral glucose and then orange juice here in the ER. Blood sugar has responded it is now in the 90s. Lab work is obtained and she is monitor for any repeat hypoglycemia episodes. With a history of the head injury and altered mentation we will check CT scan of the head to evaluate for any intracranial abnormality. She otherwise has remained hemo (more content not included)... Normal [facility] HIGH SENSITIVITY TROPONIN Io n 07-15-2023 Tropinin I.cardiac panel High sensitivity method 8.7 pg/mL Normal 0.0-34.0 [facility] Comment on above: Order Comment: Sanjuana cazares Type: BLOOD SPECIMEN Ordering Facility: [facility] Address: [address] [place] [address] Result Comment: This assay uses different antibodies than our current assay, and assays, even by the same ambulatory technologist may recognize different regions of the antibody and cannot be used interchangeably. Expect results of this assay to run higher than the previous assay. Performed By: #### H STROEvangelina #### [facility] CLIA [id number] [address] [place] [address] [place] Magnesium SerPl-mCncon 07-15 Magnesium [Mass/Vol] 1.8 mg/dL Normal 1.6-2.6 [facility] Comment on above: Order Comment: Sanjuana cazares Type: BLOOD SPECIMEN Ordering Facility: [facility] Address: [address] [place] [address] Performed By: #### 1 9123-9, 58183-7 #### [facility] CLIA [id number] [address] [place] [address] [place] Urinalysis complete panel (U )on 07-15-2023 Bacteria LM.HPF (Urine sed) [#/Area] Rare Abnormal None Seen [facility] Comment on above: Order Comment: Speci men Type: URINE SPECIMEN Ordering Facility: [facility] Address: [address] [place] [address] Performed By: #### 2 4356-8 #### [facility] CLIA [id number] [address] [place] [address] [place] Bilirubin Ql (U) Negative Normal Negative [facility] Comment on above: Order Comment: Speci men Type: URINE SPECIMEN Ordering Facility: [facility] Address: [address] [place] [address] Performed By: #### 2 4356-8 #### [facility] CLIA [id number] [address] [place] [address] [place] Clarity (Unsp spec) Clear Normal Clear [facility] Comment on above: Order Comment: Speci men Type: URINE SPECIMEN Ordering Facility: [facility] Address: [address] [place] [address] Performed By: #### 2 4356-8 #### [facility] CLIA [id number] [address] [place] [address] [place] Color (U) Yellow Normal Yellow [facility] Comment on above: Order Comment: Speci men Type: URINE SPECIMEN Ordering Facility: [facility] Address: [address] [place] [address] Performed By: #### 2 4356-8 #### [facility] CLIA [id number] [address] [place] [place] [address] [place] Epithelial cells LM.HPF (Urine sed) [#/Area] Few Normal [facility] Comment on above: Order Comment: Speci men Type: URINE SPECIMEN Ordering Facility: [facility] Address: [address] [place] [address] Performed By: #### 2 4356-8 #### [facility] CLIA [id number] [address] [place] [address] [place] Glucose Test strip (U) [Mass/Vol] Negative Normal Negative [facility] Comment on above: Order Comment: Speci men Type: URINE SPECIMEN Ordering Facility: [facility] Address: [address] [place] [address] Performed By: #### 2 4356-8 #### [facility] CLIA [id number] [address] [place] [address] [place] Hemoglobin Ql (U) Negative Normal Negative [facility] Comment on above: Order Comment: Speci men Type: URINE SPECIMEN Ordering Facility: [facility] Address: [address] [place] [address] Performed By: #### 2 4356-8 #### [facility] CLIA [id number] [address] [place] [address] [place] Ketones Ql (U) Negative Normal Negative [facility] Comment on above: Order Comment: Speci men Type: URINE SPECIMEN Ordering Facility: [facility] Address: [address] [place] [address] Performed By: #### 2 4356-8 #### [facility] CLIA [id number] [address] [place] [address] [place] Leukocyte esterase Test strip Ql (U) Negative Normal Negative [facility] Comment on above: Order Comment: Speci men Type: URINE SPECIMEN Ordering Facility: [facility] Address: [address] [place] [address] Performed By: #### 2 4356-8 #### [facility] CLIA [id number] [address] [place] [address] [place] Nitrite Ql (U) Negative Normal Negative [facility] Comment on above: Order Comment: Speci men Type: URINE SPECIMEN Ordering Facility: [facility] Address: [address] [place] [address] Performed By: #### 2 4356-8 #### [facility] CLIA [id number] [address] [place] [address] [place] pH (U) 6.0 [pH] Normal 5.0-8.0 [facility] Comment on above: Order Comment: Speci men Type: URINE SPECIMEN Ordering Facility: [facility] Address: [address] [place] [address] Performed By: #### 2 4356-8 #### [facility] CLIA [id number] [address] [place] [address] [place] Protein (U) [Mass/Vol] Negative Normal Negative [facility] Comment on above: Order Comment: Speci men Type: URINE SPECIMEN Ordering Facility: [facility] Address: [address] [place] [address] Performed By: #### 2 4356-8 #### [facility] CLIA [id number] [address] [place] [address] [place] RBC LM.HPF (Urine sed) [#/Area] 0-3 /HPF Normal 0-3 /HPF [facility] Comment on above: Order Comment: Speci men Type: URINE SPECIMEN Ordering Facility: [facility] Address: [address] [place] [address] Performed By: #### 2 4356-8 #### [facility] CLIA [id number] [address] [place] [address] [place] Specific gravity (U) [Rel density] <1.005 Low 1.005-1.030 [facility] Comment on above: Order Comment: Speci men Type: URINE SPECIMEN Ordering Facility: [facility] Address: [address] [place] [address] Performed By: #### 2 4356-8 #### [facility] CLIA [id number] [address] [place] [address] Urobilinogen Ql (U) Negative Normal Negative [facility] Comment on above: Order Comment: Speci men Type: URINE SPECIMEN Ordering Facility: [facility] Address: [address] [place] [address] Performed By: #### 2 4356-8 #### [facility] CLIA [id number] [address] [place] [address] [place] WBC LM.HPF (Urine sed) [#/Area] 0-5 /HPF Normal 0-5 /HPF [facility] Comment on above: Order Comment: Speci men Type: URINE SPECIMEN Ordering Facility: [facility] Address: [place] [id number] Performed By: #### 2 4356-8 #### [facility] CLIA [id number] [address] [place] [address] [place] CT CERVICAL SP. W/O CONon CT CERVICAL SP. W/O CON EXAMINATION: CT CERVICAL SP. W/O CON CLINICAL HISTORY: Neck pain TECHNIQUE: Spiral, high resolution axial unenhanced images were obtained from the skull base to the cervicothoracic junction with sagittal and coronal planar reconstructions. MQ: CTCSPWO_5 CT Radiation dose: Integrated CT Dose-Length Product (DLP) for this visit = 832 mGy*cm CT Dose Reduction Employed: Automatic exposure control and iterative reconstruction COMPARISON: None. RESULT: Counting reference: Craniocervical junction. Anatomic Variants: None. Waiter/Waitress Counter (topogram) images: No additional findings. Alignment: Alignment is anatomic. Craniocervical junction: Craniocervical junction is normal. Osseous structures/fracture: No evidence of a lytic or blastic process in the visualized spine. No evidence of acute or chronic fracture. Cervical soft tissues: The paraspinal soft tissues are within normal limits. Degenerative changes: Mild multilevel degenerative disc disease and degenerative facet arthropathy are noted IMPRESSION: Degenerative changes without acute osseous abnormality This report was electronically signed by Ceferino Miranda MD 12/10/2021 7:42 PM Reported By: CEFERINO MIRANDA Signed By: CEFERINO MIRANDA Normal [facility] CT HEAD/BRAIN W/O CONon 11-21 CT HEAD/BRAIN W/O CON EXAMINATION: CT HEAD/BRAIN W/O CON CLINICAL HISTORY: Headache after fall TECHNIQUE: Serial axial images without IV contrast were obtained from the vertex to the foramen magnum. MQ: CTBWO_3 CT Radiation dose: Integrated Dose-Length Product (DLP) for this visit = 832 mGy*cm CT Dose Reduction Employed: Automatic exposure control and iterative reconstruction COMPARISON: None. RESULT: Post-operative change: None. Acute change: No evidence of an acute infarct or other acute parenchymal process. Hemorrhage: No evidence of acute intracranial hemorrhage. Mass Lesion / Mass Effect: There is no evidence of an intracranial mass or extraaxial fluid collection. No significant mass effect. Chronic change: Scattered patchy foci of low attenuation are present within supratentorial white matter which is a nonspecific finding but likely represents mild microvascular ischemia. Parenchyma: There is mild generalized volume loss. The brain parenchyma is otherwise within normal limits for age. Ventricles: Ventricular enlargement concordant with the degree of parenchymal volume loss. Paranasal sinuses and skull base: The visualized paranasal sinuses are grossly clear. The skull base and imaged soft tissues are unremarkable. IMPRESSION: No evidence of acute intracranial pathology. This report was electronically signed by Ceferino Miranda MD 12/10/2021 7:39 PM Reported By: CEFERINO MIRANDA Signed By: CEFERINO MIRANDA [facility] 12-10-2021 EMERGENCY PHYSICIAN REPORT This is a preliminary report only, as the practitioner review and authentication has not occurred. [facility] ER PHYSICIAN ASSESSMENT RECORDS : CainChartData Event Time: 12/10/2021 18:10 Status: Signed [facility] Marcia Rooney [[id number]] Mid-Level Chart (V2b) 76 / F / 1945 Chart created at 12/10/2021 18:06 by Ludin Zuniga PA-C Chart closed at 12/10/2021 19:55 Entry in Emergency Department at 12/10/2021 17:38, departure at 12/10/2021 20:25 Patient Name: Marcia Rooney Record Number: [id number] Date: 12/10/2021 18:06 Entered Department at: 12/10/2021 17:38 Patient Seen at: 12/10/2021 17:52 Historian: Patient PCP: Jaya Roldan Chief Complaint:fall, backwards down approx. 4 steps . hit head on cabinet. no thinners. 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 Temperature: 98.6 F (37 C). Pulse: 83. Respiratory Rate: 18. Blood-pressure: 124/86. Oxygen Saturation: 96%. History of Present Illness: 76-Year-old female presents to the emergency department via EMS under direct medical care by [facility] for evaluation following a mechanical fall that occurred just prior to arrival. Patient states that she missed the last step going down her landing, causing her to fall down in the [facility] PATIENT NAME: MARCIA ROONEY [address] [facility] [address] Palmer MEDICAL REC #: [id number] [place] [address] EMERGENCY DEPARTMENT REPORT EMERGENCY DEPARTMENT PHYSICIAN remaining 4 steps. She struck the back of her head on the step. She denies loss of consciousness. She reports slight headache, otherwise has no additional complaints. She denies any neck, back, chest, abdominal pain. Denies any anticoagulants or antiplatelets. No additional complaints. Review of Systems. Constitutional: negative for Chills or Fever Cardio-Vascular: negative for Chest Pain Respiratory: negative for Dyspnea GI: negative for Abd. Pain, Diarrhea, Nausea or Vomiting Neurological: positive for Headache All other systems reviewed and negative.. Past History, Medications, Allergies, Social History and Family History reviewed in nurses note. Medications: Reviewed RN Note. Allergies: Reviewed RN Note Social History: Reviewed RN Note. Family History: Reviewed RN Note Physical Examination: General: 76-year-old female in no immediate distress. Vital signs reviewed. GCS 15. HEENT: Head normocephalic. Examination reveals a left occipital hematoma. No wounds. Negative piedra sign or raccoon eyes. Pupils equal, round, reactive to light bilaterally. EOMs intact.. Neck: No midline or paravertebral tenderness. No palpable step-offs. Respiratory: No Resp Distress, Chest non-tender and Normal Breath Sounds Cardio-Vascular: RRR Abdomen: Non-tender Back: No Midline Tenderness and Non-tender Neurological: Alert, Oriented X3 and No Gross Weakness Skin: Dry Psychological: Mood/Affect Normal Imaging Study Obtained: CT (HEAD/BRAIN) WO CONT Imaging Study Obtained: CT (CERVICAL SP) W/O CON Imaging Study Obtained: CT HEAD/BRAIN W/O CON, Status:Signed Report Available [facility] PATIENT [facility]: [facility] MEDICAL REC #: [id number] [place] [address] EMERGENCY DEPARTMENT REPORT EMERGENCY DEPARTMENT PHYSICIAN EXAMINATION: CT HEAD/BRAIN W/O CON CLINICAL HISTORY: Headache after fall TECHNIQUE: Serial axial images without IV contrast were obtained from the vertex to the foramen magnum. MQ: CTBWO_3 CT Radiation dose: Integrated Dose-Length Product (DLP) for this visit = 832 mGy*cm CT Dose Reduction Employed: Automatic exposure control and iterative reconstruction COMPARISON: None. RESULT: Post-operative change: None. Acute change: No evidence of an acute infarct or other acute parenchymal process. Hemorrhage: No evidence of acute intracranial hemorrhage. Mass Lesion / Mass Effect: There is no evidence of an intracranial mass or extraaxial fluid collection. No significant mass effect. Chronic change: Scattered patchy foci of low attenuation are present within supratentorial white matter which is a nonspecific finding but [facility] PATIENT [facility]: [facility] MEDICAL REC #: [id number] [place] [address] EMERGENCY DEPARTMENT REPORT EMERGENCY DEPARTMENT PHYSICIAN likely represents mild microvascular ischemia. Parenchyma: There is mild generalized volume loss. The brain parenchyma is otherwise within normal limits for age. Ventricles: Ventricular enlargement concordant with the degree of parenchymal volume loss. Paranasal sinuses and skull base: The vi (more content not included)... Normal [facility] Vital Signs Date Time Vital Sign Value Performing Clinician Trixie reynoso 06-20-2024 08:10-0500 Body temperature 97.11 [degF] Joãogon Abi DO Work Phone: [facility] [employer] 06-20-2024 08:10-0500 Diastolic blood pressure 77 mm[Hg] Mejgon Abi DO [facility] Phone[facility] 06-20-2024 08:10-0500 Heart rate 68 /min Joãogon Abi DO Work Phone: [employer] 06-20-2024 08:10-0500 Respiratory rate 20 /min Joãogon Abi DO Work Phone: [employer] 06-20-2024 08:10-0500 SaO2% (BldA) [Mass fraction] 99 % Joãogon Abi DO Work Phone: [employer] 06-20-2024 08:10-0500 Systolic blood pressure 150 mm[Hg] jgon Abi DO Work Phone: [employer] 06-18-2024 17:00-0500 Body height 165.1 cm Joãogon Abi DO Work Phone: [employer] 06-18-2024 17:00-0500 Body mass index (BMI) [Ratio] 38.09 kg/m2 jgon Abi DO Work Phone: [employer] 06-18-2024 17:00-0500 Body weight 103.83 kg Joãogon Abi DO Work Phone: [facility] [employer] 12-13-2023 12:15-0400 Body mass index (BMI) [Ratio] 28.35 kg/m2 Bhargav Dominguez Jr., PERSONAL LINES ACCOUNT EXECUTIVE.DOCUMENTATION SPEC Work Phone: [facility] 12-13-2023 12:15-0400 Body temperature 98.29 [degF] Bhargav Dominguez Jr., PERSONAL LINES ACCOUNT EXECUTIVE.DOCUMENTATION SPEC Work Phone: [facility] 12-13-2023 12:15-0400 Body weight 82.1 kg Bhargav Dominguez Jr., PERSONAL LINES ACCOUNT EXECUTIVE.DOCUMENTATION SPEC Work Phone: [facility] 12-13-2023 12:15-0400 Diastolic blood pressure 74 mm[Hg] Bhargav Dominguez Jr., PERSONAL LINES ACCOUNT EXECUTIVE.DOCUMENTATION SPEC Work Phone: [facility] 12-13-2023 12:15-0400 Heart rate 74 /min Bhargav Dominguez Jr., PERSONAL LINES ACCOUNT EXECUTIVE.DOCUMENTATION SPEC Work Phone: [facility] 12-13-2023 12:15-0400 Respiratory rate 18 /min Bhargav Dominguez Jr., PERSONAL LINES ACCOUNT EXECUTIVE.DOCUMENTATION SPEC Work Phone: [facility] 12-13-2023 12:15-0400 SaO2% (BldA) [Mass fraction] 93 % Bhargav Dominguez Jr., PERSONAL LINES ACCOUNT EXECUTIVE.DOCUMENTATION SPEC Work Phone: [facility] 12-13-2023 12:15-0400 Systolic blood pressure 124 mm[Hg] Bhargav Dominguez Jr., PERSONAL LINES ACCOUNT EXECUTIVE.DOCUMENTATION SPEC Work Phone: [facility] Encounters Encounter Date Encounter Type Care Provider Facility Start: 01-26-2025 ambulatory Cynthia MELTON Facility:[facility] Start: 12-03-2024 ambulatory Patricio MELTON Faci lity:[facility] Start: 11-20-2024 End: 11-20-2024 ambulatory Patricio MELTON Facility:[facility] Start: 11-14-2024 End: 11-14-2024 ambulatory Cynthia MELTON Facility:[facility] Start: 10-08-2024 End: 10-08-[address] Ondina Gray MD [facility] Work Phone: Start: 10-08-2024 End: 10-08-2024 Departed Referred Cynthia Espino MD -[facility] Start: 10-08-2024 End: 10-08-2024 ambulatory Cynthia MELTON Facility:[facility] Start: 08-13-2024 End: 08-13-[address] Ondina Gray MD [facility] Work Phone: Start: 08-13-2024 End: 08-13-2024 Departed Referred Ondina Gray MD -[facility] Start: 08-13-2024 Registered Referred Ondina Gray MD -[facility] [employer] Start: 08-13-2024 End: 08-13-2024 ambulatory Ondina MELTON Facility:[facility] Start: 08-09-2024 End: 08-09-[address] Ondina Gray MD [facility] Work Phone: Start: 08-09-2024 End: 08-09-2024 Departed Referred Ondina Gray MD -[place] [employer] Start: 08-08-2024 End: 08-09-2024 ambulatory Ondina MELTON Facility:[facility] Start: 08-08-2024 Registered Referred Ondina Gray MD -[place] [employer] Start: 08-06-2024 End: 08-06-2024 Departed Referred Patricio Yee -[facility] [employer] Start: 08-06-2024 End: 08-06-2024 ambulatory Patricio MELTON Facility:[facility] Start: 08-04-2024 End: 08-04-2024 Departed Referred Ondina Gray MD -[place] [employer] Start: 08-04-2024 End: 08-04-2024 ambulatory Ondina MELTON Facility:[facility] Start: 08-01-2024 End: 08-01-2024 Departed Referred Ondina Gray MD -[place] [employer] Start: 08-01-2024 End: 08-01-2024 ambulatory Ondina MELTON Facility:[facility] Start: 07-21-2024 End: 07-21-2024 Emergency department patient visit ISAIAH ROLDAN Facility:[facility] Start: 06-27-2024 ambulatory Ondina MELTON Fac ility:[facility] Start: 06-27-2024 Registered Referred Ondina Gray MD -[place] [employer] Start: 06-23-2024 End: 06-23-2024 [facility]ed [facility] Start: 06-23-2024 End: 06-23-2024 ambulatory Patricio MELTON Facility:[facility] Start: 06-13-2024 End: 06-20-2024 Evaluation and management of inpatient Rita Alex DO Work Phone: [facility] Comment on above: COVID (Primary Dx); Nausea, vomiting and diarrhea; Pyelonephritis; Fever, unspecified fever cause Start: 06-13-2024 End: 06-13-2024 Departed Referred Ondina Gray MD -[facility] Start: 06-13-2024 End: 06-13-2024 ambulatory Ondina MELTON Facility:[facility] Start: 06-10-2024 End: 06-10-2024 Telephone encounter Brandon Rush MD Work Phone: [facility] Start: 05-23-2024 End: 05-23-2024 ambulatory Patricio MELTON Facility:[facility] Start: 05-16-2024 End: 05-16-2024 ambulatory Patricio MELTON Facility:[facility] Start: 05-06-2024 ambulatory [place] Facility:[facility] Start: 05-05-2024 End: 05-05-2024 ambulatory [facility] Facility:[facility] Start: 05-01-2024 End: 05-01-2024 ambulatory [facility] Facility:[facility] Start: 04-29-2024 ambulatory Patricio Cantusayvette Facility :[facility] Start: 04-29-2024 End: 04-29-2024 ambulatory Patricio Cantusaros GERONIMO Facility:[facility] Start: 04-18-2024 End: 04-18-2024 ambulatory Patricio Cantusaros OLS Facility:[facility] Start: 04-16-2024 End: 04-16-2024 Orders Only Charisse DALLASG [employer] [facility] Start: 04-15-2024 End: 04-15-2024 ambulatory LALITA MONTALVO Facility:[id number] Start: 04-12-2024 End: 04-16-2024 ambulatory ISAIAH ROLDAN Facility:[id number] Start: 12-13-2023 End: 12-13-2023 Subsequent hospital visit by physician Sharla Amato Work Phone: [facility] Comment on above: Chest pain on breath ing [R07.1] Start: 12-13-2023 End: 12-13-2023 ambulatory ISAIAH ROLDAN Facility:[id number] Start: 12-13-2023 End: 12-13-2023 Patient encounter procedure Bhargav Dominguez APRN.BINH Work Phone: [facility] [place] Comment on above: Musculoskeletal ches t pain (Primary Dx); Chest pain on breathing Start: 09-20-2023 End: 09-20-[address] [facility] Work Phone: Start: 09-20-2023 End: 09-20-2023 Departed Referred [facility] [employer] Start: 09-20-2023 Registered Referred [facility] Start: 09-14-2023 End: 09-14-[address] [facility] Work Phone: Start: 09-14-2023 End: 09-14-2023 Departed Referred [facility] [employer] Start: 09-12-2023 End: 09-12-[address] [facility] Work Phone: Start: 09-12-2023 End: 09-12-2023 Departed Referred [facility] [employer] Start: 09-11-2023 End: 09-11-[address] [facility] Work Phone: Start: 09-11-2023 End: 09-11-2023 Departed Referred [facility] [employer] Start: 09-11-2023 [facility] [employer] Start: 08-31-2023 End: 09-07-2023 Evaluation and management of inpatient ELIA ANDRES Facility:[id number] Start: 07-15-2023 End: 07-16-2023 Emergency department patient visit GILBERT HOWELL Facility:[id number] Start: 12-10-2021 End: 12-10-2021 Subsequent hospital visit by physician EN WILSON Comment on above: FALL/MASS/RM1 Procedures Date Procedure Procedure Detail Performing Clinician Start: 10-08-[address] e detection Dr. Ondina Gray MD Start: 08-09-2024 Measurement of occul t blood in stool specimen using immunoassay Dr. Ondina Gray MD Start: 08-04-[address] Noni Gray MD Start: 06-20-2024 End: 06-20-2024 Glucose quantitative blood xcpt reagent strip Tien Hairston MD Work Phone: Start: 06-19-2024 Glucose quantitative blood xcpt reagent strip Tien Hairston MD Work Phone: Start: 06-19-2024 Glucose quantitative blood xcpt reagent strip Tien Hairston MD Work Phone: Start: 06-19-2024 Glucose quantitative blood xcpt reagent strip Tien Hairston MD Work Phone: Start: 06-19-2024 Glucose quantitative blood xcpt reagent strip Tien Hairston MD Work Phone: Start: 06-19-2024 Basic metabolic pane l calcium total Elia Celis DO Work Phone: Start: 06-18-2024 Glucose quantitative blood xcpt reagent strip Tien Hairston MD Work Phone: Start: 06-18-2024 End: 06-18-2024 Glucose quantitative blood xcpt reagent strip Tien Hairston MD Work Phone: Start: 06-18-2024 Glucose quantitative blood xcpt reagent strip Tien Hairston MD Work Phone: Start: 06-18-2024 Glucose quantitative blood xcpt reagent strip Tien Hairston MD Work Phone: Start: 06-18-2024 Basic metabolic pane l calcium total Elia Vogt DO Work Phone: Start: 06-17-2024 Glucose quantitative blood xcpt reagent strip Tien Hairston MD Work Phone: Start: 06-17-2024 Glucose quantitative blood xcpt reagent strip Tien Hairston MD Work Phone: Start: 06-17-2024 Glucose quantitative blood xcpt reagent strip Tien Hairston MD Work Phone: Start: 06-17-2024 Glucose quantitative blood xcpt reagent strip Tien Hairston MD Work Phone: Start: 06-17-2024 Basic metabolic pane l calcium total Elia Vogt DO Work Phone: Start: 06-16-2024 Glucose quantitative blood xcpt reagent strip Elia Vogt DO Work Phone: Start: 06-16-2024 Glucose quantitative blood xcpt reagent strip Elia Vogt DO Work Phone: Start: 06-16-2024 Glucose quantitative blood xcpt reagent strip Elia Vogt DO Work Phone: Start: 06-16-2024 Glucose quantitative blood xcpt reagent strip Elia Vogt DO Work Phone: Start: 06-16-2024 Basic metabolic pane l calcium total Elia Vogt DO Work Phone: Start: 06-15-2024 Glucose quantitative blood xcpt reagent strip Elia Vogt DO Work Phone: Start: 06-15-2024 Glucose quantitative blood xcpt reagent strip Elia Vogt DO Work Phone: Start: 06-15-2024 Glucose quantitative blood xcpt reagent strip Elia Vogt DO Work Phone: Start: 06-15-2024 Glucose quantitative blood xcpt reagent strip Elia Vogt DO Work Phone: Start: 06-15-2024 Basic metabolic pane l calcium total Elia Celis DO Work Phone: Start: 06-15-2024 Manual Differential panel - Blood Elia Celis DO Work Phone: Start: 06-14-2024 Glucose quantitative blood xcpt reagent strip Elia Celis DO Work Phone: Start: 06-14-2024 Glucose quantitative blood xcpt reagent strip Elia Celis DO Work Phone: Start: 06-14-2024 End: 06-14-2024 POCT GLUCOSE METER UNSOLICITED RESULTS Elia Celis DO Work Phone: Start: 06-14-2024 Radiologic exam ches t 2 views Elia Celis DO Work Phone: Start: 06-14-2024 Glucose quantitative blood xcpt reagent strip Elia Celis DO Work Phone: Start: 06-14-2024 Ct head/brain w/o co ntrast material Mari Diaz MD Work Phone: Start: 06-14-2024 Glucose quantitative blood xcpt reagent strip Elia Celis DO Work Phone: Start: 06-14-2024 Blood count complete automated Mari Diaz MD Work Phone: Start: 06-14-2024 C-reactive protein Romario Diaz MD Work Phone: Start: 06-14-2024 Comprehensive metabo lic panel Mari Diaz MD Work Phone: Start: 06-13-2024 Assay of troponin quantitative Juan Palafox MD Work Phone: Start: 06-13-2024 SARS-COV-2, FLU A/B, AND RSV COMBO Mejgon Z Abi DO Work Phone: Start: 06-13-2024 Blood count complete auto&auto difrntl wbc Juan Palafox MD Work Phone: Start: 06-13-2024 Manual Differential panel - Blood Juan Palafox MD Work Phone: Start: 06-13-2024 Culture bacterial quanttative colony count urine Rita Dukeya DO Work Phone: Start: 06-13-2024 Ct abdomen & pelvis w/contrast material Juan Palafox MD Work Phone: Start: 06-13-2024 Antibody screen MARI DIAZ Comment on above: Performed By: #### L [id number] #### Editorial Project Manager: IRWIN CONTRERAS ([id number]) [facility] BLOOD [facility] [address] Start: 06-13-2024 ABO and Rh group [Ty pe] in Blood by Confirmatory method Juan Palafox MD Work Phone: Start: 06-13-2024 Bacteria identified in Blood by Culture Juan Palafox MD Work Phone: Start: 06-13-2024 BLOOD CULTURE IDENTIFICATION - ANAEROBIC Juan Palafox MD Work Phone: Start: 06-13-2024 Blood typing serologic abo Juan Palafox MD Work Phone: Start: 06-13-2024 End: 06-13-2024 Comprehensive metabolic panel Juan Palafox MD Work Phone: Start: 06-13-2024 Ecg routine ecg w/le ast 12 lds trcg only w/o i&r Juan Palafox MD Work Phone: Start: 06-13-2024 Thyrotropin [Units/v olume] in Serum or Plasma margaritolorrainebennett Abi DO Work Phone: Start: 12-13-2023 Radiologic exam ches t 2 views Bhargav Dominguez PERSONAL LINES ACCOUNT EXECUTIVE.DOCUMENTATION SPEC Work Phone: Start: 12-13-2023 Ecg routine ecg w/le ast 12 lds trcg only w/o i&r [facility] Provider Start: 09-20-2023 Urine culture Plan of Treatment Date Care Activity Detail Author Start: 04-14-2027 Diabetes Screening Diabetes Screenin g [facility] Start: 09-07-2026 Diabetes Screening Diabetes Screenin g [facility] Start: 06-19-2025 Diabetes: Estimated Glomerular Filtration Rate for Kidney Health Diabetes: Estimated Glomerular Filtration Rate for Kidney Health [facility] Start: 06-13-2025 Thyroid stimulating hormone measurement TSH Level [facility] Start: 03-23-2024 Covid-19 Vaccine () Covid-19 Vaccine () [facility] Start: 03-23-2024 Covid-19 Vaccine () Covid-19 Vaccine () [facility] Start: 03-23-2024 COVID-19 Vaccine () COVID-19 Vaccine () [facility] Start: 03-23-2024 Influenza vaccination C [facility] Start: 07-23-2023 Advance Directive Discussion Advance Directive Discussion [facility] Start: 07-23-2023 Behavioral Health Screening Behavioral Health Screening [facility] Start: 07-23-2023 Medicare Advantage Annual Wellness Visit Medicare Advantage Annual Wellness Visit [facility] Start: 03-23-2023 Covid-19 Vaccine ( season) Covid-19 Vaccine () [facility] Start: 03-18-2021 Pneumococcal Vaccine : 65+ Years (2 of 2 - PCV) Pneumococcal Vaccine: 65+ Years (2 of 2 - PCV) [facility] Start: 2020 RSV Immunization for Adults (1 - 1-dose 75+ series) RSV Immunization for Adults (1 - 1-dose 75+ series) [facility] Start: 2020 RSV Vaccine (1 - 1-d ose 75+ series) RSV Vaccine (1 - 1-dose 75+ series) [facility] Start: 2010 Pneumococcal Vaccine : 65+ (1 of 1 - PCV) Pneumococcal Vaccine: 65+ (1 of 1 - PCV) [facility] Start: 2010 Screening for osteoporosis Bone Density Screening [facility] Start: 2005 RSV Vaccine (1 - 1-d ose 60+ series) RSV Vaccine (1 - 1-dose 60+ series) [facility] Start: 1995 Shingrix Vaccine (1 of 2) Shingrix Vaccine (1 of 2) [facility] Start: 1995 Zoster Vaccines (1 o f 2) Zoster Vaccines (1 of 2) [facility] Start: 1964 DTaP/Tdap/Td Vaccine s (1 - Tdap) DTaP/Tdap/Td Vaccines (1 - Tdap) [facility] Start: 1964 Urine microalbumin profile DTaP,Tdap,Td Vaccine (1 - Tdap) [facility] Start: 1963 Annual PCP Team Inside Sales Engineer chhaya Disease Visit Annual PCP Team Chronic Disease Visit [facility] Start: 1963 Anxiety Screening Anxiety Screening [facility] Start: 1963 Depression Screening Depression Scre ing [facility] Start: 1963 Diabetes: Urine Albumin-Creatinine Ratio for Kidney Health Diabetes: Urine Albumin-Creatinine Ratio for Kidney Health [facility] Start: 1963 Hepatitis C screening Hepatitis C Sc reening [facility] Start: 1957 Depression Screening Depression Scre ing [facility] Start: 1945 Screening for osteoporosis Bone Density Scan [facility] End: 12-12-2024 ECG COMPLETE ECG COMPLETE ECG Routine Chest pain on breathing 1 Occurrences starting 12/13/2023 until 12/12/2024 [facility] Comment on above: 1 Occurrences starti ng 12/13/2023 until 12/12/2024 End: 01-12-2025 XR Chest PA and Lateral XR CHEST 2V FRONTAL/LAT Radiology Routine Chest pain on breathing 1 Occurrences starting 12/13/2023 until 01/12/2025 [facility] Work Phone: Comment on above: 1 Occurrences starti ng 12/13/2023 until 01/12/2025 XR Chest PA and Lateral XR CHEST 2V FRONTAL/LAT Radiology Routine Chest pain on breathing 12/13/2023 1:52 PM EDT [facility] Payers Date Payer Category Payer Self-pay 2022 Medicare HUMANA MEDICARE HUMANA GOLD PLUS [id number] 2022-Present [phone] [place] [id number] [facility] [id number] 2022 Medicare HMO [facility] [id number] 2022 Medicare [id number] Unknown [id number] [id number] 2 Unknown [id number] 2.16.840.1.935021.3.579.2.46 2 Unknown [id number] 2.16.840.1.317136.3.579.2.46 2 Unknown [id number] 2.16.840.1.162598.3.579.2.46 2 Unknown [id number] 2.16.840.1.995919.3.579.2.46 2 Unknown [id number] 2.16.840.1.452590.3.579.2.46 2 Unknown [id number] 2.16.840.1.892846.3.579.2.46 2 Unknown [id number] 2.16.840.1.930213.3.579.2.46 2 Unknown [id number] 2.16.840.1.860324.3.579.2.46 2 Unknown [id number] 2.16.840.1.089294.3.579.2.46 2 Unknown [id number] 2.16.840.1.469020.3.579.2.46 2 Unknown [id number] 2.16.840.1.067260.3.579.2.46 2 Unknown [id number] 2.16.840.1.359560.3.579.2.46 2 Unknown [id number] 2.16.840.1.422072.3.579.2.46 2 Unknown [id number] 2.16.840.1.030742.3.579.2.46 2 Unknown [id number] 2.16.840.1.761469.3.579.2.46 2 Unknown [id number] 2.16.840.1.122115.3.579.2.46 2 Unknown [id number] 2.16.840.1.198594.3.579.2.46 2 Unknown [id number] 2.16.840.1.182517.3.579.2.46 2 Unknown [id number] 2.16.840.1.587901.3.579.2.46 2 Social History Date Type Detail Facility [facility] smoking consumption unknown [facility] Start: 1945 Sex Assigned At Not on file [facility] Start: 1945 Sex Assigned At Female [facility] Start: 12-13-2023 Tobacco smoking stat [facility] Ex-smoker [facility] History of tobacco use Current smoker [facility] History of tobacco use Cigarette Smoker C [facility] Start: 12-13-2023 End: 06-13-2024 Cigarettes smoked current (pack per day) - Reported 0.5 [facility] Work Phone: Start: 12-13-2023 Tobacco use and exposure Smokeless tobacco non-user [facility] Start: 12-13-2023 End: 04-12-2024 Alcohol intake Ex-drinker (finding) [facility] Start: 09-04-2023 End: 06-13-2024 [facility] Utilities [facility] Work Phone: Has the [employer], or [employer] threatened to shut off services in your home in past 12Mo No [facility] Work Phone: How hard is it for y ou to pay for the very basics like food, housing, medical care, and heating Not hard at all [facility] (I/We) worried jose alfredo er (my/our) food would run out before (I/we) got money to buy more. Never true [facility] How often to you hav e a drink containing alcohol? Never [facility] Start: 06-13-2024 End: 10-21-2024 Sex Female (finding) [facility] Medical Equipment Procedure Code Equipment Code Equipment Origin al Text Equipment Identifier Dates [id number] Start: 11-02-2023 Clinical Notes 08-31-2023 to 06-20-2024 Gilbert Jackson RN - 06/20/2024 2:50 PM Maisha Jackson RN - 06/20/2024 2:50 PM Dwayne Ceron RN - 06/18/2024 8:40 AM ESTCare Coordination - Marianne Latif - 06/20/2024 2:13 PM EST Note Date & Type Note Facility 06-20-2024 Note Discharge Summary Marcia Rooney : 1945 ADMIT DATE: 06/13/2024 DISCHARGE DATE: 06/20/24 PRIMARY CARE PHYSICIAN: No primary care provider on file. VISIT STATUS: Admission CODE STATUS: Prior DISCHARGE DIAGNOSES: Principal Problem: COVID Acute hypoxic respiratory failure COVID 19 PNA Remdesivir and decadron Supplemental O2, wean as tolerated Symptomatic management PRN Patient is not on supplemental O2 at baseline CXR reviewed negative for PNA Abx changed to amoxicillin through 06/26 Bacteremia, Ecoli Discussed with ID abx stewardship committee, changed to amoxicillin through 06/26/24. UTI Acute cystitis Suspected right pyelonephritis Simple sepsis Sensitivities pending UA and UC reviewed Broad coverage abx Left facial bruising Mechanical fall suspected Patient without fall reported from SNF CT of head negative Monitor status DM type 2 SSI coverage Basal insulin resumed Monitor BG in setting of steroids as above Hypothyroidism Levothyroxine resumed Hx of CVA Statin, ASA and plavix CT of head negative Hyponatremia Urine studies and serum osm pending BMP in the AM. DM with hyperglycemia HOSPITAL COURSE: 06/14/24: patient with increased cough and headache. She is found to have simple sepsis and positive BC for e coli, imaging showing suspected right pyelonephritis and suspected cystitis as well. UA and culture pending. She is also COVID 19 positive with hypoxia. She is being treated with broad spectrum abx, decadron, remdesivir. Wean O2 as tolerated. CXR not obtained in the ED? Imaging pending. She has some bruising on left face, no reported fall? CT of head negative. Home medications reviewed and resumed as indicated. CBC and BMP in the AM. 06/15/24: patient weaned to RA, stable respiratory status, continue to wait for UA and culture pending. BC remain positive, sensitivities pending. Continue broad coverage abx. CT head negative, CXR negative as well for PNA. Sodium dropped to 128 today, urine studies pending, serum osm pending. CBC and BMP in the AM. PT/OT eval and treat, recommending SNF on discharge. 06/16/24: patient with increased cough and headache. She is found to have simple sepsis and positive BC for e coli, imaging showing suspected right pyelonephritis and suspected cystitis as well. She is also COVID 19 positive with hypoxia. On decadron and remdesivir. CT head negative. CXR negative for PNA as well. Sodium improved today. Encourage PO intake. Discussed with ID abx stewardship committee today, change abx to amoxicillin through 06/26/24 for bacteremia. PT/OT recommending SNF, CM following. Labs and vitals reviewed and stable. CBC And BMP in the AM. 06/1707-[id number], remdesivir day 4, continue Decadron. For E. coli bacteremia, ID recommended amoxicillin until 06/26. Patient is still confused no signs of agitation or anxiety. PT OT evaluated the patient recommending [facility]. Possible discharge in next 1 to 2 days 06/18-patient finished remdesivir course. Continue Decadron for 5 more days. For E. coli bacteremia patient is on amoxicillin until 06/26. Still having confusion but pleasant with no signs of agitation or anxiety. Medically stable for discharge. Awaiting [facility] facility placement. Possible discharge in next 1 to 2 days 06/19-continues to be pleasantly confused. No signs of agitation or anxiety. Continue Decadron for 4 more days Finished remdesivir course. Amoxicillin until 06/26. Patient is medically stable for discharge Awaiting placement. General appearance: No apparent distress, appears stated age and cooperative with exam, elderly female in NAD HEENT: left facial bruising Respiratory: diminished BL, CTA otherwise. Cardiovascular: Regular rate and rhythm with no murmur Abdomen: Soft, non-tender, non-distended Skin: Skin color, texture, turgor normal. No rashes or lesions. Distal pulses intact in BL LE, no edema in BL LE Neurologic: Neurovascularly intact without any focal sensory/motor deficits. Cranial nerves: II-XII intact, grossly non-focal. DISCHARGE MEDICATIONS: Medication List START taking these medications amoxicillin 500 MG capsule Commonly known as: Amoxil Take 1 capsule (500 mg) by mouth every 8 hours for 6 days. benzonatate 100 MG capsule Commonly known as: Tessalon Take 1 capsule (100 mg) by mouth 3 times daily as needed for cough for up to 7 days. Do not crush or chew. dexAMETHasone 6 MG tablet Commonly known as: Decadron Take 1 tablet (6 mg) by mouth daily for 2 doses. ondansetron ODT 4 MG disintegrating tablet Commonly known as: Zofran-ODT Take 1 tablet (4 mg) by mouth every 8 hours as needed for nausea or vomiting for up to 7 days. CHANGE how you take these medications bisacodyl 5 MG EC tablet Commonly known as: Dulcolax What changed: Another medication with the same name was removed. Continue taking this m (more content not included)... [facility] 06-20-2024 Nurse Note Report called to Sandy OLIVEIRA at [facility]. [facility] 06-20-2024 Nurse Note Report called to Sandy OLIVEIRA at [facility]. Wound Care consulted for Pressure Injury Prevention. Pt's Giuseppe score= 14 on 06/17 Pt's pressure points assessed. Pt's Heels, Buttocks/coccyx, Back, Elbows, Occiput and ears all intact. Pt incontinent of urine. Pads changed, incontinence care provided, barrier ointment applied. Prevention Measures in place, including: [place] sheet (obtained) with pillows/wedges, Foam heel protectors (obtained and applied), Heels elevated off bed on pillows, Sacral foam (obtained, at bedside), Zinc/Moisture Barrier ointment (obtained), Waffle chair cushion (obtained for pt). Skin Care precaution order set in place. Dietitian consult in place. PT/OT consult in place. Will continue to follow pt. Please secure chat for any questions or concerns. Mady Ceron RN documented in this encounter [facility] 06-20-2024 Note Formatting of this n ote might be different from the original. Discharge med list transmitted to return back to [facility] via [facility] per [facility] request. 7000 was entered into [email or web address] for the [facility]- Facility is aware [facility] 06-20-2024 Note Formatting of this n ote might be different from the original. Discharge med list transmitted to return back to [facility] via [facility] per [facility] request. 7000 was entered into [email or web address] for the [facility] Facility is aware [facility] 06-20-2024 Miscellaneous Notes Discharge med list transmitted to return back to [facility] via [facility] per [facility] request. 7000 was entered into [email or web address] for the [facility] Facility is aware Care Management Progress Note Recieved insurance auth. DC orders in and signed by Dr. Hairston. CONSTRUCTION ENGINEER set up transport. BIG DATA DEVELOPER tasked in [facility] to send 7000 and DC info to [facility]. DC to SNF in stable condition. Length of Stay (Days): 7 GMLOS: No GMLOS Documented compound worker received a secured message from [facility] to arrange transportation to [facility]. compound worker arranged transportation via Round Trip. L:ynx confirmed for 3:00p. compound worker notified facility and treatment team. compound worker left voicemail for Elsi. . Awaiting Jeanne aleman to return to [facility]. [facility] will continue to follow. The time of this note does not reflect the actual time patient was seen and assessed but instead the time of this documentation. Care Managment Initial Assessment Date: 06/18/2024 Patient Name: Marcia Rooney : 1945 Patient Information Source of Information: Patient Hand Candy Cutter Name/Contact Information: Chiquis DEL TORO/ MARC Calzada Cognition/Language: Confused at baseline Permission given to speak with patient cash application representative/caregiver as indicated: Yes Confirmation of Payer with patient/family: Yes Payer Name: Jeanne KAY Condon: No Confirmation of Primary Care Physician: Confirmed PCP Name: [facility]'s Editorial Project Manager Seen in last 2 years?: Yes Primary Caregiver: ([facility] staff) If assistance needed, confirmed caregiver ready, willing and able to care for patient at discharge: Yes Confirmed with: Jamaal Connolly Living Arrangements Current Residence: Number of Floors Number of Entry Steps: Bed/Bath Levels: Facility: Nursing Facility Skilled Facility Name: [facility] Plan to Return: Yes Lives with: (SNF staff and residents) Support Systems: Children, Family members, Friends/neighbors, Comments (Other) (SNF staff and residents) Activities of Daily Living Ambulation: Assistance (Uses WW) Bathing/Dressing: Assistance Elimination/Continence/Toiletin g: Assistance Feeding: Independent Who Assists with Activities of Daily Living: Jamaal aidjorden Instrumental Activities of Daily Living Prescription Coverage: Yes Pharmacy Used: [facility] Medication Management: ([facility] nurses manage meds) Transportation/Shopping: Assistance Provider Transportation/Shopping Assistance Provider Name: [facility] Transportation Mode: Senior/disability transport service Needs Assistance with Transportation at Discharge: Yes (Will need CONSTRUCTION ENGINEER to set up return transport) Meal Preparation: Assistance Provider Meal Prep Assistance Provider Name: [facility] staff Laundry/Cleaning: Assistance Provider Laundry/Cleaning Assistance Provider Name: [facility] staff Finances/Bill Paying: Assistance Provider Finances/Bill Payer Assistance Provider Name: Son and MARC Calzada Communication: Independent Types of Care Services/Equipment Utilized Care Services: Dialysis Type: Durable Medical Equipment: Walker, Raised Toilet Seat, Shower Seat, Other (Comment) (Grab bars) Patient's Goal/Discharge Plan Patient expects to be discharged to: Return to SNF Discharge Planning Actions: Continue to follow, Snf Facility referral indicated [place] of choice: [place] of choice discussed, Choice list provided Patient's Choice Rights and [employer] and Collaborative Relationships Disclosed as Indicated for Post-Acute Care: Yes Interdisciplinary Team Engagement: PT/OT, Disease Management Program Social Work Referral for: Additional Information: Pt here from [facility] for Covid. Today is last day of and Jun, ok to start insurance auth. BIG DATA DEVELOPER tasked in [facility] to initiate [employer] pre-cert. Message left again for MARC Calzada. Will need return transport set up. [facility] will continue to follow. Vero Molina RN Referral placed to return back to [facility] per [facility] request. Await review and response regarding ability to accept. [facility] notified. S/W, self pay Per [facility] patient SNF notes the patient has [employer] Medicare.I did message Financial Counselor Sharon Elmore with this information. Case Management Daily Note/Update Phoned patient's [id number], Elsi Rooney, at [phone] and left HIPAA compliant requesting call back. Wish to complete IA and discuss discharge planning. Problem: Safety - Adult Goal: Free from fall injury Outcome: Progressing Problem: Knowledge Deficit Goal: Patient/family/caregiver demonstrates understanding of disease process, treatment plan, medications, and discharge instructions Outcome: Progressing Problem: Pain - Adult Goal: Verbalizes/displays adequate comfort level or baseline comfort level Outcome: Progressing Problem: Safety - Adult Goal: Free from fall injury Outcome: Progressing Problem: Discharge Planning Goal: Discharge to home or other facility with appropriate resources Outcome: Progressing Problem: Chronic Conditions and Co-morbidities Goal: Patient's chronic conditions and co-morbidity symptoms are monitored and maintained or improved Outcome: Progressing Problem: Knowledge Deficit Goal: Patient/family/caregiver demonstrates understanding of disease process, treatment plan, medications, and discharge instructions Outcome: Progressing Problem: Potential for Compromised Skin Integrity Goal: Skin Integrity is Maintained or Improved Outcome: Progressing Goal: Nutritional status is improving Outcome: Progressing Problem: Urinary Incontinence Goal: Perineal skin integrity is maintained or improved Outcome: Progressing Zosyn started due to 2 bcx + gram neg Previously was on rocephin documented in this encounter [facility] 06-20-2024 Note Formatting of this n ote might be different from the original. Care Management Progress Note Recieved insurance auth. DC orders in and signed by Dr. Hairston. [facility] set up transport. BIG DATA DEVELOPER tasked in [facility] to send 7000 and DC info to [facility]. DC to SNF in stable condition. Length of Stay (Days): 7 GMLOS: No GMLOS Documented [facility] 06-20-2024 Note Formatting of this n ote might be different from the original. Care Management Progress Note Recieved insurance auth. DC orders in and signed by Dr. Hairston. [facility] set up transport. BIG DATA DEVELOPER tasked in [facility] to send 7000 and DC info to [facility]. DC to SNF in stable condition. Length of Stay (Days): 7 GMLOS: No GMLOS Documented [facility] 06-20-2024 Note Care Management Prog ress Note Recieved insurance auth. DC orders in and signed by Dr. Hairston. [facility] set up transport. BIG DATA DEVELOPER tasked in [facility] to send 7000 and DC info to [facility]. DC to SNF in stable condition. Length of Stay (Days): 7 GMLOS: No GMLOS Documented [facility] 06-20-2024 Note Formatting of this n ote might be different from the original. compound worker received a secured message from [facility] to arrange transportation to [facility]. compound worker arranged transportation via Round Trip. L:ynx confirmed for 3:00p. compound worker notified facility and treatment team. compound worker left voicemail for Elsi. . [facility] 06-20-2024 Note Formatting of this n ote might be different from the original. compound worker received a secured message from [facility] to arrange transportation to [facility]. compound worker arranged transportation via Round Trip. L:ynx confirmed for 3:00p. compound worker notified facility and treatment team. compound worker left voicemail for Elsi. . [facility] 06-20-2024 Hospital Discharg e instructions Gilbert Jackson RN - 06/20/2024 11:08 AM EST Images from the original note were not included. Continuity of Care Form Patient Name: Marcia Rooney : 1945 Admit date: 06/13/2024 Discharge date: 06/20/2024 Code Status Order: Full Code Advance Directives: N Admitting Physician: Mari Diaz MD PCP: No primary care provider on file. Discharging Nurse: Gilbert Jackson RN Discharging Hospital Unit/Room#: S1-708/B2-998 A Discharging Unit Emergency Contact: Extended Emergency Contact Information Primary Emergency Contact: Elsi Rooney Mobile Relation: [id number] Past Surgical History: History reviewed. No pertinent surgical history. Immunization History: Immunization History Administered Date(s) Administered Moderna SARS-CoV-2 Vaccination 08/25/2020, 09/22/2020 Active Problems: Medical Problems Problem List * (Principal) COVID Isolation/Infection: Droplet Plus COVID-19 (confirmed) Nurse Assessment: Last Vital Signs: BP 150/77 (BP Location: Left arm, Patient Position: Sitting) Pulse 68 Temp 36.2 C (97.1 F) (Temporal) Resp 20 Ht 5' 5" (1.651 m) Wt 228 lb 14.4 oz (104 kg) SpO2 99% BMI 38.09 kg/m Last documented pain score (0-10 scale): Last Weight: Wt Readings from Last 1 Encounters: 06/18/24 228 lb 14.4 oz (104 kg) Mental Status: GAIL Patient Mental Status: disoriented and alert IV Access: GAIL IV Access: None Nursing Mobility/ADLs: Walking Total assistance Transfer Total assistance Bathing Total assistance Dressing Total assistance Toileting Total assistance Feeding Independent Oliving Machine Operator Total assistance Med Delivery yes Wound Care Documentation and Therapy: Elimination: Continence: Bowel: no Bladder: no Urinary Catheter: None Colostomy/Ileostomy/Ileal Conduit: None Date of Last BM: 06/20/2024 Intake/Output Summary (Last 24 hours) at 06/20/2024 1107 Last data filed at 06/19/2024 1826 Gross per 24 hour Intake 992 ml Output -- Net 992 ml I/O last 3 completed shifts: In: 1991 (19.2 mL/kg) [I.V.:1991 (19.2 mL/kg)] Out: - (0 mL/kg) Weight: 103.8 kg Safety Concerns: at risk for falls Impairments/Disabilities: none Nutrition Therapy: Current Nutrition Therapy: Oral diet: general and carb control 5 carbs/meal (2000kcals/day) Routes of Feeding: oral Liquids: no restrictions Daily Fluid Restriction: no Last Modified Barium Swallow with Video (Video Swallowing Test): not done Treatments at the Time of Hospital Discharge: Respiratory Treatments: Oxygen Therapy: is on oxygen at 1 L/min per nasal cannula. Ventilator: No ventilator support Rehab Therapies: physical therapy and occupational therapy Weight Bearing Status/Restrictions: no restriction Other Medical Equipment (for information only, NOT a DME order): bedside commode and walker Other Treatments: Patient's personal belongings (please select all that are sent with patient): RN SIGNATURE: MANAGEMENT/SOCIAL WORK SECTION Inpatient Status Date: 06/13/24 Discharging to Facility/ Agency Name: [facility] Address: [address] [place] [address] Fax: Dialysis Facility (if applicable) Name: Address: Dialysis Schedule: Phone: Fax: Decision Science Analyst/Account Support Specialist signature: ICIAN SECTION Name: Marcia Rooney Prognosis: good Condition at Discharge: stable Rehab Potential (if transferring to Rehab): good Recommended Labs or Other Treatments After Discharge: Please continue amoxicillin until June 26 The individual is being admitted to a nursing facility directly from an [facility] or a unit of a [facility] that is not operated by or licensed by [facility] under section 5119.14 or 5160-3-15.1 5 The individual requires the level of services provided by a nursing facility for the condition for which he or she was treated in the hospital and, Physician Certification: I certify the above information and transfer of Marcia Rooney is necessary for the continuing treatment of the diagnosis listed and that she requires [facility] for less than 30 days. Update Admission H&P: No change in H&P PHYSICIAN SIGNATURE: documented in this encounter [facility] 06-20-2024 History of Presen t illness Narrative Images from the original note were not included. OCCUPATIONAL THERAPY [facility] Treatment Note Name/MRN: Marcia Rooney ([id number]) Date of : 1945 Age: 78 y.o. Room/Bed: B4466/B4466 A Visit #: 4 out of 6 visits Discharge Recommendation: Snf Facility Equipment Needed: No Prior Level of Function Prior Level of ADL Function: Required Assist Prior Level of Mobility: Required Assist; Device: Front wheeled walker Prior Level of Transfers: Required Assist Assessment Pt tolerated session fairly well and is making progress with OT POC. She completed bed mobility with SBA-Min A, STS with Mod-Min A, stand step transfer with Min A, and standing balance with CGA. She required Max A-Total A for LE dressing, Max A for toileting tasks, and SBA-CGA for grooming tasks. Pt is limited by impaired strength, balance, endurance, and cognition. Pt is functioning below baseline and is a high fall risk. She would continue to benefit from skilled OT services in order to increase safety and maximize indep in occupational participation. OT rec is SNF upon planned discharge. Subjective Pt supine in bed upon arrival, pleasant and agreeable. Per RN, pt okay to see. Pleasantly confused Pain: Pt denies any current pain. Medical Precautions: Droplet Plus Proper PPE donned/doffed in accordance with facility standards. Fall Risk: Jacinto Fall Risk Score: 100 (High Risk) Precautions/Restrictions: Fall Precautions Family/Caregiver Present: none Objective ADLs LE Dressing: Max Assist, Dependent Toileting: Max Assist Grooming: SBA, Contact Guard, after setup Pt completed LE dressing to doff/don brief with Max A-Total A, she required Total A to doff brief in standing d/t heavy reliance on FWW. Max A to don brief, she required assist for threading BLEs and was able to minimally assist with pulling brief up over hips. Pt incontinent with urine upon arrival. She was able to minimally assist with pericare, she required Max A for thoroughness and backside hygiene. Pt performed grooming tasks at sink level with FWW and CGA for approx 2 min before reporting she felt like her L knee was going to buckle, CGA for ~4 steps backwards to return to EOB. She completed grooming tasks seated EOB with SBA after set up. She did not require cues for grooming tasks. Bed Mobility Supine to sit: SBA Sit to supine: Min Assist Pt completed bed mobility from supine to EOB with SBA, HOB elevated and with use of bed rails. She required Min A to return to supine for bringing BLEs into bed. VC's for sequencing with fair carry over. Increased time to complete. Denied dizziness with positional changes. Transfers/Mobility Sit to stand: Mod Assist Stand to sit: Min Assist Stand step: Min Assist Standing balance: Contact Guard Pt completed x4 STS to/from EOB to FWW with Mod A for elevation an Min A for controlled descent. She demo'd good hand palcement for push up from/reach back to seated surface. Min A for stand step transfer, pt performed approx 4 steps forwards/backwards and 3 lateral steps to the HOB. She demo'd slight instability and heavy reliance on FWW. Pt completed dynamic standing balance at FWW with CGA for approx 2 min, she demonstrated reaching outside KACY and across midline with fair balance. Pt reported feeling like her L knee was going to buckle and returned to sitting EOB with CGA. Device(s) used: Front wheeled walker Cognition Exceptions - Memory: decreased recall of biographical information, decreased recall of recent events, decreased short term memory, and decreased fdc memory - Safety judgement: decreased awareness of need for assistance and decreased awareness of need for safety - Problem solving: assistance required to generate solutions, assistance required to implement solutions, assistance required to identify errors made, assistance required to correct errors made, and decreased awareness of errors - Insights: decreased awareness of deficits - Sequencing: requires cues for some A&O to self and place Plan Continue acute OT per plan of care. Safety/Education Safety Safety Devices in place: All fall risk precautions in place, call light within reach, left in bed, bed alarm in place, gait belt, patient at risk for falls, nurse notified, and no alarms engaged upon entry Restraints: No Education Education Given To: patient Education Provided: OT Role, Plan of Care, Transfer Training, Energy Conservation, Fall Prevention Education, Discharge Recommendations, and Benefits of Increasing Activity Education Method: Verbal, Demonstration, and Teach Back Barriers to Learning: Cognition Education Outcome: Verbalized Understanding, Demonstrated Understanding, and Continued Education Needed AM-PAC AM-PAC Inpatient Daily Activity Raw Score: 17 ADL Inpatient CMS G-Code Modifier: CK Goals Patient Stated Goal: did not state Encounter Problems Encounter Problems (Active) Balance Patient will tolerate standing for 4 minutes with SBA to allow participation in ADL tasks (Slowly Progressing) Start: 06/15/24 Expected End: 06/21/24 Dressing Upper Extremities Patient will complete upper body dressing with setup/supervision (Not Addressed) Start: 06/15/24 Expected End: 06/21/24 Dressings Lower Extremities Patient will dress lower body with SBA (Slowly Progressing) Start: 06/15/24 Expected End: 06/21/24 Mobility Patient will demonstrate functional ambulation with LRD at SBA level (Slowly Progressing) Start: 06/15/24 Expected End: 06/21/24 Toileting Patient will complete toileting tasks at standard toilet with SBA. (Slowly Progressing) Start: 06/15/24 Expected End: 06/21/24 Transfers Patient will complete functional transfer with least restrictive device with SBA in order to prepare for ambulation. (Progressing) Start: 06/15/24 Expected End: 06/21/24 Therapy Time Individual Co-treatment Time In 0935 Time Out 1010 Minutes 35 Timed Code Treatment Minutes: 35 Minutes (1 ADL, 1 THER ACT) JENA Munoz Cosigned by Kimberly Barnes OT at 06/20/2024 1:12 PM EST Hospitalist Progress Note 06/19/[phone]: Please page me ([phone]) for patient care issues. [phone]: Please page [facility] Hospitalist for any issues. Subjective: Admit Date: 06/13/2024 PCP: No primary care provider on file. Room#: B4-565/M1-588 A Interval History: patient admitted for sepsis in setting of bacteremia and COVID 19. No overnight issues. Having her breakfast this morning, pleasantly confused no signs of agitation or anxiety. Adult diet Regular; 5 carb choices (75 gm/meal) 24HR INTAKE/OUTPUT: Intake/Output Summary (Last 24 hours) at 06/19/2024 1339 Last data filed at 06/19/2024 1102 Gross per 24 hour Intake 1000 ml Output -- Net 1000 ml Past Medical History: History reviewed. No pertinent past medical history. LABS: CBC: Recent Labs 06/17/2440106/18/2414606/19/24 010 WBC 6.1 6.2 7.7 RBC 2.98* 3.02* 3.07* HGB 8.9* 9.1* 9.1* HCT 27.6* 28.4* 29.1* MCV 92.6 94.0 94.8 RDW 13.2 13.4 13.4 PLT 228 241 304 BMP: Recent Labs 06/17/2440106/18/2414606/19/24108 NA 132* 133* 134* K 3.6 3.6 4.3 CL 105 107 107 CO2 25 25 25 BUN 24* 18* 15 CREATININE 0.83 0.63 0.72 GLUCOSE 206* 190* 128* CALCIUM 7.7* 7.8* 8.1* ANIONGAP 2* 2* 2* LIVER PROFILE: No results for input(s): "AST", "ALT", "BILITOT", "ALKPHOS", "PROT" in the last 72 hours. No lab exists for component: LABALBU PT/INR: No results for input(s): "PROTIME", "INR" in the last 72 hours. CARDIAC ENZYMES: No results for input(s): "TROPONINI" in the last 72 hours. Procalcitonin: No results found for: "PROCAL" COVID-19 PCR: No results for input(s): "COVID19" in the last 72 hours. Objective: Vitals: BP 117/94 Pulse 76 Temp 36.5 C (97.7 F) (Temporal) Resp 18 Ht 5' 5" (1.651 m) Wt 228 lb 14.4 oz (104 kg) SpO2 100% BMI 38.09 kg/m Pulse Ox: SpO2 Av.5 % Min: 93 % Max: 100 % Supplemental O2: O2 Flow Rate (L/min): 2 L/min General appearance: No apparent distress, appears stated age and cooperative with exam, elderly female in NAD HEENT: left facial bruising Respiratory: diminished BL, CTA otherwise. Cardiovascular: Regular rate and rhythm with no murmur Abdomen: Soft, non-tender, non-distended Skin: Skin color, texture, turgor normal. No rashes or lesions. Distal pulses intact in BL LE, no edema in BL LE Neurologic: Neurovascularly intact without any focal sensory/motor deficits. Cranial nerves: II-XII intact, grossly non-focal. Medications: sodium chloride, 150 mL/hr, Last Rate: 150 mL/hr (06/19/24 1102) amoxicillin, 500 mg, Oral, 3 times per day atorvastatin, 40 mg, Oral, Daily buPROPion XL, 150 mg, Oral, Daily dexAMETHasone, 6 mg, Oral, Daily enoxaparin, 40 mg, SubCUTAneous, Daily insulin glargine, 30 Units, SubCUTAneous, Daily insulin lispro, 0-18 Units, SubCUTAneous, TID WC And insulin lispro, 0-18 Units, SubCUTAneous, Nightly levothyroxine, 175 mcg, Oral, qAM AC venlafaxine XR, 37.5 mg, Oral, Daily Assessment Acute hypoxic respiratory failure COVID 19 PNA Remdesivir and decadron Supplemental O2, wean as tolerated Symptomatic management PRN Patient is not on supplemental O2 at baseline CXR reviewed negative for PNA Abx changed to amoxicillin through 06/26 Bacteremia, Ecoli Discussed with ID abx stewardship committee, changed to amoxicillin through 06/26/24. UTI Acute cystitis Suspected right pyelonephritis Simple sepsis Sensitivities pending UA and UC reviewed Broad coverage abx Left facial bruising Mechanical fall suspected Patient without fall reported from SNF CT of head negative Monitor status DM type 2 SSI coverage Basal insulin resumed Monitor BG in setting of steroids as above Hypothyroidism Levothyroxine resumed Hx of CVA Statin, ASA and plavix CT of head negative Hyponatremia Urine studies and serum osm pending BMP in the AM. Medical Decision Making 06/14/24: patient with increased cough and headache. She is found to have simple sepsis and positive BC for e coli, imaging showing suspected right pyelonephritis and suspected cystitis as well. UA and culture pending. She is also COVID 19 positive with hypoxia. She is being treated with broad spectrum abx, decadron, remdesivir. Wean O2 as tolerated. CXR not obtained in the ED? Imaging pending. She has some bruising on left face, no reported fall? CT of head negative. Home medications reviewed and resumed as indicated. CBC and BMP in the AM. 06/15/24: patient weaned to RA, stable respiratory status, continue to wait for UA and culture pending. BC remain positive, sensitivities pending. Continue broad coverage abx. CT head negative, CXR negative as well for PNA. Sodium dropped to 128 today, urine studies pending, serum osm pending. CBC and BMP in the AM. PT/OT eval and treat, recommending SNF on discharge. 06/16/24: patient with increased cough and headache. She is found to have simple sepsis and positive BC for e coli, imaging showing suspected right pyelonephritis and suspected cystitis as well. She is also COVID 19 positive with hypoxia. On decadron and remdesivir. CT head negative. CXR negative for PNA as well. Sodium improved today. Encourage PO intake. Discussed with ID abx stewardship committee today, change abx to amoxicillin through 06/26/24 for bacteremia. PT/OT recommending SNF, CM following. Labs and vitals reviewed and stable. CBC And BMP in the AM. [id number]-[id number], remdesivir day 4, continue Decadron. For E. coli bacteremia, ID recommended amoxicillin until 06/26. Patient is still confused no signs of agitation or anxiety. PT OT evaluated the patient recommending [facility]. Possible discharge in next 1 to 2 days 06/18-patient finished remdesivir course. Continue Decadron for 5 more days. For E. coli bacteremia patient is on amoxicillin until 06/26. Still having confusion but pleasant with no signs of agitation or anxiety. Medically stable for discharge. Awaiting [facility] placement. Possible discharge in next 1 to 2 days 06/18-continues to be pleasantly confused. No signs of agitation or anxiety. Continue Decadron for 4 more days Finished remdesivir course. Amoxicillin until 06/26. Patient is medically stable for discharge Awaiting placement. -am labs, replace lytes prn -increase activity -resume home medications as indicated -DVT prophylaxis: [x] Lovenox [] Heparin [] SCDs [x] Encourage ambulation [] Already on Anticoagulation Anticipated Discharge - Date -tomorrow - Location - Home vs SNF - Pending the following - improvement in respiratory status Toxic drug monitoring/narrow therapeutic index drug monitoring : # Drug name : # Route administered : # Method of monitoring : Extended Emergency Contact Information Primary Emergency Contact: Elsi Rooney Mobile Relation: [id number] Tien Hairston MD Division of Hospitalist Medicine Inpatient Medical Services/[facility] PAGER: Epic chat Nutrition Assessment Type and Reason for Visit: Initial, Consult (Giuseppe nutritional subscore of 2 or less) Nutrition Recommendations/Plan: Continue with Adult diet Regular; 5 carb choices (75 gm/meal) Pt is eating well. ONS not indicated at this time. Please document pt's PO intakes via flowsheet to accurately assess PO intake adequacy. Suggest checking pt's Vitamin D level and supplement if deficient/insufficient. Monitor intakes, weights, and labs weekly. RD will follow. Malnutrition Assessment: Malnutrition Status: No malnutrition Context: Acute Illness Findings of the 6 clinical characteristics of malnutrition: Energy Intake: No significant decrease in energy intake Weight Loss: No significant weight loss Body Fat Loss: No significant body fat loss Muscle Mass Loss: No significant muscle mass loss Fluid Accumulation: No significant fluid accumulation Machine Striper Strength: Not Performed Nutrition Assessment: Pt is a 78 y/o female admitted from [facility] with complaints of nausea, coughing, CARDONA, and diarrhea. Pt reports feeling much better today. Pt reports having a very good appetite and was very complimentary of the food here at the hospital. Pt with poor dentition but tolerating regular textures without complaints so far. Estimated weight at admission was 150#. RD weighed the pt today at 228.9#. Per pt, she was guessing around 210#. Per last documented weight in the EMR, pt weighed 184# (04/15/24), 181# (12/13/23), 178#(09/07/23). Estimated Daily Nutrient Needs: Energy Requirements Based On: Kcal/kg Weight Used for Energy Requirements: Caldwell Weight for Energy Calculation (kg): 57 kg Total Energy Requirements (kcals/day): 1095-1528 kcals (28-30 kcals/kg) Weight Used for Protein Requirements: Caldwell Weight in Kg Used for Protein Requirements: 57 kg Estimated Total Protein (g/day): 68-80g (1.2-1.4g/kg) Estimated Daily Total Fluid (ml/day): 1600 ml/day or per MD Nutrition Related Findings: no edema; Na 133, BUN 18, Glucose 190, 206, 246, ca++ 7.8, Hgb 9.1, Hct 28.4; insulin, Synthroid Wound Type: (left eye bruising/redness, redness to coccyx) Current Nutrition Therapies: Adult diet Regular; 5 carb choices (75 gm/meal) Current Oral Intake Average Meal Intake: 51-75%, 76-100% Average Supplements Intake: None Ordered Anthropometric Measures: Height: 165.1 cm (5' 5") Current Body Weight: 104 kg (228 lb 14.4 oz) Weight Source: Bed Scale (may be an overestimation d/t items/blankets on the bed) Usual Body Weight: 83.5 kg (184 lb) (184# (04/15/24), 181# (12/13/23), 178# (09/07/23)) % Weight Change (Calculated): 24.4 Caldwell Body Weight (lbs) (Calculated): 125 lbs Caldwell Body Weight (Kg) (Calculated): 57 kg % Caldwell Body Weight (Calculated): 183.1 % BMI (kg/m2) (Calculated): 38.1 Weight Adjustment For: No Adjustment BMI Categories: Obese Class 2 (BMI 35.0 -39.9) Nutrition Diagnosis: Increased nutrient needs related to increase demand for energy/nutrients as evidenced by other (comment) (COVID) Nutrition Interventions: Nutrition Education/Counseling: No recommendation at this time Coordination of Nutrition Care: Continue to monitor while inpatient Plan of Care discussed with: Patient Goals: Goals: PO intake 75% or greater, by next RD assessment Nutrition Monitoring and Evaluation: Behavioral-Environmental Outcomes: None Identified Food/Nutrient Intake Outcomes: Diet Advancement/Tolerance, Food and Nutrient Intake, Supplement Intake Physical Signs/Symptoms Outcomes: Biochemical Data, GI Status, Chewing or Swallowing, Nausea or Vomiting, Fluid Status or Edema, Diarrhea, Nutrition Focused Physical Findings, Skin, Weight Discharge Planning: Continue current diet Brad Wong RD Contact: *[phone] or via Secure Chat Images from the original note were not included. PHYSICAL THERAPY [facility] Treatment Note Name/MRN: Marcia Rooney ([id number]) Date of : 1945 Age: 78 y.o. Room/Bed: B4-906/B4-722 A Visit #: 3 out of 7 visits Discharge Recommendation: Snf Facility Equipment Needed: No Prior Level of Function Prior Level of ADL Function: Required Assist Prior Level of Mobility: Required Assist; Device: Front wheeled walker Prior Level of Transfers: Required Assist Assessment Pt is progressing slowly toward PT goals however is limited by decreased strength, mild dizziness, and impaired cognition. Pt completed bed mobility with SBA/Nathan, sit to stand transfers with Nathan/modA, and lateral stepping along EOB with FWW and Nathan. Pt also completed stepping activity fwd/backward but reports instability/buckling of L knee. Pt will benefit from continued skilled PT to address current functional deficits. Recommend SNF. Subjective Patient pleasant and agreeable to therapy. Pain: Pt reports L knee pain/instability but did not rate pain level numerically. Medical Precautions: Droplet Plus Proper PPE donned/doffed in accordance with facility standards. Fall Risk: Jacinto Fall Risk Score: 85 (High Risk) Precautions/Restrictions: Fall Precautions Overall Cognitive Status: Exceptions - Attention span: attends with cues to redirect - Safety judgement: decreased awareness of need for assistance and decreased awareness of need for safety - Problem solving: assistance required to generate solutions, assistance required to implement solutions, assistance required to identify errors made, assistance required to correct errors made, and decreased awareness of errors - Insights: decreased awareness of deficits - Sequencing: requires cues for some Family/Caregiver Present: none Objective Bed Mobility Supine to sit: SBA Sit to supine: Min Assist HOB elevated and use of bed rail. Pt was able to perform supine>sit transfer without assist however required increased time. When returning to supine, pt required Nathan to guide L LE into bed. Pt reports mild dizziness upon sitting at EOB. Pt was instructed in proper breathing techniques and completing bed mobility slowly to decrease symptoms of dizziness. Transfers/Mobility Sit to stand: Min Assist, Mod Assist Stand to sit: Min Assist, Mod Assist From EOB to FWW x5 trials. Pt was instructed in proper hand/foot placement. Fair carryover demonstrated. Pt required modA from lower bed height and Nathan from slightly elevated bed. Increased time to rise and slight decreased eccentric control noted when returning to sit. Once in standing, pt completed lateral stepping along EOB with FWW and Nathan. Verbal cues and assist with management of FWW. Pt demos decreased toe clearance and heavy reliance on FWW. Pt also completed stepping activity fwd/backward but reports instability/buckling of L knee. Unable to progress to further ambulation this date. Device(s) used: Front wheeled walker Plan Continue acute PT per plan of care. Safety/Education Safety Safety Devices in place: All fall risk precautions in place, call light within reach, left in bed, bed alarm in place, gait belt, patient at risk for falls, and nurse notified Restraints: No Education Education Given To: patient Education Provided: PT Role, PT Goals, Plan of Care, Transfer Training, and Benefits of Increasing Activity Education Method: Verbal Barriers to Learning: Cognition Education Outcome: Verbalized Understanding, Unable to Demonstrate, and Continued Education Needed Outcome Measures AM-PAC AM-PAC Inpatient Mobility Raw Score (No Stairs) : 11 Goals Patient Stated Goal: no goal stated. Encounter Problems Encounter Problems (Active) Balance Patient will maintain dynamic standing balance for 5 minutes with CGA in order to demonstrate decreased risk of falling. (Progressing) Start: 06/15/24 Expected End: 06/21/24 Exercise Patient will complete lower extremity exercises for 1-2 sets / 10-15 reps in order to improve strength and activity tolerance for mobility. (Not Addressed) Start: 06/15/24 Expected End: 06/21/24 Mobility Patient will ambulate 20 feet with CGA and least restrictive device in order to improve safety and independence with mobility. (Progressing) Start: 06/15/24 Expected End: 06/21/24 Pain - Adult Transfers Patient will perform bed mobility with supervision in order to improve independence and prepare for out of bed mobility. (Progressing) Start: 06/15/24 Expected End: 06/21/24 Patient will complete functional transfer with least restrictive device with CGA in order to prepare for ambulation. (Progressing) Start: 06/15/24 Expected End: 06/21/24 Therapy Time Individual Co-treatment Time In 1337 Time Out 1412 Minutes 35 Timed Code Treatment Minutes: 31 Minutes (x2 ther act) Shy Mccall PTA Cosigned by Sandoval Puckett PT at 06/18/2024 2:36 PM EST Hospitalist Progress Note 06/18/[phone]: Please page nd [phone]) for patient care issues. [phone]: Please page [facility] Hospitalist for any issues. Subjective: Admit Date: 06/13/2024 PCP: No primary care provider on file. Room#: B4-466/B4466 A Interval History: patient admitted for sepsis in setting of bacteremia and COVID 19. No overnight issues. Having her breakfast this morning, pleasantly confused no signs of agitation or anxiety. Adult diet Regular; 5 carb choices (75 gm/meal) 24HR INTAKE/OUTPUT: No intake or output data in the 24 hours ending 06/18/24 1303 Past Medical History: History reviewed. No pertinent past medical history. LABS: CBC: Recent Labs 06/16/24 0626 06/17/24 0402 06/18/24 0147 WBC 7.7 6.1 6.2 RBC 2.98* 2.98* 3.02* HGB 9.0* 8.9* 9.1* HCT 27.3* 27.6* 28.4* MCV 91.6 92.6 94.0 RDW 12.7 13.2 13.4 PLT 217 228 241 BMP: Recent Labs 06/16/24 0626 06/17/24 0402 06/18/24 0147 NA 132* 132* 133* K 3.5 3.6 3.6 CL 103 105 107 CO2 24 25 25 BUN 24* 24* 18* CREATININE 0.70 0.83 0.63 GLUCOSE 246* 206* 190* CALCIUM 8.0* 7.7* 7.8* ANIONGAP 5 2* 2* LIVER PROFILE: No results for input(s): "AST", "ALT", "BILITOT", "ALKPHOS", "PROT" in the last 72 hours. No lab exists for component: LABALBU PT/INR: No results for input(s): "PROTIME", "INR" in the last 72 hours. CARDIAC ENZYMES: No results for input(s): "TROPONINI" in the last 72 hours. Procalcitonin: No results found for: "PROCAL" COVID-19 PCR: No results for input(s): "COVID19" in the last 72 hours. Objective: Vitals: BP 133/60 (BP Location: Right arm, Patient Position: Lying) Pulse 67 Temp 36.1 C (96.9 F) (Temporal) Resp 18 Ht 5' 5" (1.651 m) Wt 150 lb (68 kg) SpO2 100% BMI 24.96 kg/m Pulse Ox: SpO2 Av.5 % Min: 97 % Max: 100 % Supplemental O2: O2 Flow Rate (L/min): 2 L/min General appearance: No apparent distress, appears stated age and cooperative with exam, elderly female in NAD HEENT: left facial bruising Respiratory: diminished BL, CTA otherwise. Cardiovascular: Regular rate and rhythm with no murmur Abdomen: Soft, non-tender, non-distended Skin: Skin color, texture, turgor normal. No rashes or lesions. Distal pulses intact in BL LE, no edema in BL LE Neurologic: Neurovascularly intact without any focal sensory/motor deficits. Cranial nerves: II-XII intact, grossly non-focal. Medications: sodium chloride, 150 mL/hr, Last Rate: 150 mL/hr (06/18/24 1120) amoxicillin, 500 mg, Oral, 3 times per day atorvastatin, 40 mg, Oral, Daily buPROPion XL, 150 mg, Oral, Daily dexAMETHasone, 6 mg, Oral, Daily enoxaparin, 40 mg, SubCUTAneous, Daily insulin glargine, 30 Units, SubCUTAneous, Daily insulin lispro, 0-18 Units, SubCUTAneous, TID WC And insulin lispro, 0-18 Units, SubCUTAneous, Nightly levothyroxine, 175 mcg, Oral, qAM AC venlafaxine XR, 37.5 mg, Oral, Daily Assessment Acute hypoxic respiratory failure COVID 19 PNA Remdesivir and decadron Supplemental O2, wean as tolerated Symptomatic management PRN Patient is not on supplemental O2 at baseline CXR reviewed negative for PNA Abx changed to amoxicillin through 06/26 Bacteremia, Ecoli Discussed with ID abx stewardship committee, changed to amoxicillin through 06/26/24. UTI Acute cystitis Suspected right pyelonephritis Simple sepsis Sensitivities pending UA and UC reviewed Broad coverage abx Left facial bruising Mechanical fall suspected Patient without fall reported from SNF CT of head negative Monitor status DM type 2 SSI coverage Basal insulin resumed Monitor BG in setting of steroids as above Hypothyroidism Levothyroxine resumed Hx of CVA Statin, ASA and plavix CT of head negative Hyponatremia Urine studies and serum osm pending BMP in the AM. Medical Decision Making 06/14/24: patient with increased cough and headache. She is found to have simple sepsis and positive BC for e coli, imaging showing suspected right pyelonephritis and suspected cystitis as well. UA and culture pending. She is also COVID 19 positive with hypoxia. She is being treated with broad spectrum abx, decadron, remdesivir. Wean O2 as tolerated. CXR not obtained in the ED? Imaging pending. She has some bruising on left face, no reported fall? CT of head negative. Home medications reviewed and resumed as indicated. CBC and BMP in the AM. 06/15/24: patient weaned to RA, stable respiratory status, continue to wait for UA and culture pending. BC remain positive, sensitivities pending. Continue broad coverage abx. CT head negative, CXR negative as well for PNA. Sodium dropped to 128 today, urine studies pending, serum osm pending. CBC and BMP in the AM. PT/OT eval and treat, recommending SNF on discharge. 06/16/24: patient with increased cough and headache. She is found to have simple sepsis and positive BC for e coli, imaging showing suspected right pyelonephritis and suspected cystitis as well. She is also COVID 19 positive with hypoxia. On decadron and remdesivir. CT head negative. CXR negative for PNA as well. Sodium improved today. Encourage PO intake. Discussed with ID abx stewardship committee today, change abx to amoxicillin through 06/26/24 for bacteremia. PT/OT recommending SNF, CM following. Labs and vitals reviewed and stable. CBC And BMP in the AM. [id number], remdesivir day 4, continue Decadron. For E. coli bacteremia, ID recommended amoxicillin until 06/26. Patient is still confused no signs of agitation or anxiety. PT OT evaluated the patient recommending [facility]. Possible discharge in next 1 to 2 days 06/18-patient finished remdesivir course. Continue Decadron for 5 more days. For E. coli bacteremia patient is on amoxicillin until 06/26. Still having confusion but pleasant with no signs of agitation or anxiety. Medically stable for discharge. Awaiting [facility] facility placement. Possible discharge in next 1 to 2 days -am labs, replace lytes prn -increase activity -resume home medications as indicated -DVT prophylaxis: [x] Lovenox [] Heparin [] SCDs [x] Encourage ambulation [] Already on Anticoagulation Anticipated Discharge - Date -tomorrow - Location - Home vs SNF - Pending the following - improvement in respiratory status Toxic drug monitoring/narrow therapeutic index drug monitoring : # Drug name : # Route administered : # Method of monitoring : Extended Emergency Contact Information Primary Emergency Contact: Elsi Rooney Mobile Relation: [id number] Tien Hairston MD Division of Hospitalist Medicine Inpatient Medical Services/[facility] PAGER: [email or web address] Images from the original note were not included. OCCUPATIONAL THERAPY [facility] Treatment Note Name/MRN: Marcia Rooney ([id number]) Date of : 1945 Age: 78 y.o. Room/Bed: [facility] A Visit #: 3 out of 6 visits Discharge Recommendation: Snf Facility Equipment Needed: No Prior Level of Function Prior Level of ADL Function: Required Assist Prior Level of Mobility: Required Assist; Device: Front wheeled walker Prior Level of Transfers: Required Assist Assessment Pt seen for OT tx this date with a focus on bed mobility, transfer training, and mobility. Pt tolerated session fairly well and is making progress with OT POC. She completed bed mobility with SBA-Min A, STS with Mod-Min A, stand step transfer with Min A, and standing balance with CGA. Pt is limited by impaired strength, balance, and endurance. Pt is functioning below baseline and is a high fall risk. She would continue to benefit from skilled OT services in order to increase safety and maximize indep in occupational participation. OT rec is SNF upon planned discharge. Subjective Pt supine in bed upon arrival, pleasant and agreeable. Per RN, pt okay to see. Pleasantly confused. Pain: Pt denies any current pain. Medical Precautions: Droplet Plus Proper PPE donned/doffed in accordance with facility standards. Fall Risk: Jacinto Fall Risk Score: 75 (High Risk) Precautions/Restrictions: Fall Precautions Family/Caregiver Present: none Objective Bed Mobility Supine to sit: SBA Sit to supine: Min Assist Pt completed bed mobility from supine to EOB with SBA, HOB elevated and with use of bed rails. She required Min A to return to supine for bringing BLEs into bed. Increased time to complete. Denied dizziness with positional changes. Transfers/Mobility Sit to stand: Mod Assist Stand to sit: Min Assist Stand step: Min Assist Standing balance: Contact Guard Pt completed STS to/from EOB to FWW with Mod A for elevation and Min A for controlled descent. VC's for hand placement for push up from/reach back to seated surface with fair carry over. Min A for side steps along EOB, pt took ~4 lateral steps to HOB with use of FWW. VC's for device mgmt with fair carry over. CGA for standing balance at FWW. Device(s) used: Front wheeled walker Cognition Exceptions - Memory: decreased recall of biographical information, decreased recall of recent events, decreased short term memory, and decreased fdc memory - Safety judgement: decreased awareness of need for assistance and decreased awareness of need for safety - Problem solving: assistance required to generate solutions, assistance required to implement solutions, assistance required to identify errors made, assistance required to correct errors made, and decreased awareness of errors - Insights: decreased awareness of deficits - Sequencing: requires cues for some A&O to self and place Plan Continue acute OT per plan of care. Safety/Education Safety Safety Devices in place: All fall risk precautions in place, call light within reach, left in bed, bed alarm in place, gait belt, patient at risk for falls, nurse notified, and no alarms engaged upon entry Restraints: No Education Education Given To: patient Education Provided: OT Role, Plan of Care, Transfer Training, Energy Conservation, Fall Prevention Education, Discharge Recommendations, and Benefits of Increasing Activity Education Method: Verbal, Demonstration, and Teach Back Barriers to Learning: Cognition Education Outcome: Verbalized Understanding, Demonstrated Understanding, and Continued Education Needed AM-PAC AM-PAC Inpatient Daily Activity Raw Score: 17 ADL Inpatient CMS G-Code Modifier: CK Goals Patient Stated Goal: did not state Encounter Problems Encounter Problems (Active) Balance Patient will tolerate standing for 4 minutes with SBA to allow participation in ADL tasks (Progressing) Start: 06/15/24 Expected End: 06/21/24 Dressing Upper Extremities Patient will complete upper body dressing with setup/supervision (Not Addressed) Start: 06/15/24 Expected End: 06/21/24 Dressings Lower Extremities Patient will dress lower body with SBA (Not Addressed) Start: 06/15/24 Expected End: 06/21/24 Mobility Patient will demonstrate functional ambulation with LRD at SBA level (Progressing) Start: 06/15/24 Expected End: 06/21/24 Toileting Patient will complete toileting tasks at standard toilet with SBA. (Not Addressed) Start: 06/15/24 Expected End: 06/21/24 Transfers Patient will complete functional transfer with least restrictive device with SBA in order to prepare for ambulation. (Progressing) Start: 06/15/24 Expected End: 06/21/24 Therapy Time Individual Co-treatment Time In 0910 Time Out 0940 Minutes 30 Timed Code Treatment Minutes: 30 Minutes (2 THER ACT) ROXANE Munoz/Janeen Cosigned by Tessie Day OT at 06/18/2024 2:40 PM EST Images from the original note were not included. OCCUPATIONAL THERAPY [facility] Treatment Note Name/MRN: Marcia Rooney ([id number]) Date of : 1945 Age: 78 y.o. Room/Bed: L3-694/Z4-470 A Visit #: 2 out of 6 visits Discharge Recommendation: Snf Facility Equipment Needed: No Prior Level of Function Prior Level of ADL Function: Required Assist Prior Level of Mobility: Required Assist; Device: Front wheeled walker Prior Level of Transfers: Required Assist Assessment Patient seen for OT treatment focusing on functional transfers/mobility, bed mobility, lower body dressing, and bathroom level toileting. Patient required mod assist overall this date for toileting and lower body dressing this date. Patient was able to thread bilateral lower extremities without physical assist however required increased assist overall for management of over hips. Patient able to assist with JACKI care tasks this date however increased assist required for thoroughness at this time. Max increased time required for completion of ADL tasks this date. She required mod assist overall for transfers with contact-guard for short mobility to and from bathroom. She would continue to benefit from skilled OT services to improve her safety and independence. Recommend plan discharge for SNF at this time. Subjective Pleasant and cooperative. Okay to see per RN. Agreeable to therapy treatment. Pain: 0-10 pain scale: 9/10 Location: [place] knees following mobility. RN aware. Medical Precautions: Droplet Plus Proper PPE donned/doffed in accordance with facility standards. Fall Risk: Jacinto Fall Risk Score: 75 (High Risk) Precautions/Restrictions: Fall Precautions Family/Caregiver Present: none Objective ADLs LE Dressing: Mod Assist Toileting: Mod Assist Patient requires increased time to stay to complete all functional ADL tasks. She was able to complete lower body dressing with mod assist overall. She was able to doff briefs in standing and thread clean briefs over bilateral lower extremities without physical assist, however required increased assist to manage briefs up over hips and standing. Increased time required to complete all lower body dressing tasks. Heavy reliance on grab bars and front wheel walker for stability and standing at this time. Patient pleated bathroom level toileting this date with mod assist overall. Patient was able to assist with JACKI care at this time however continued to require assist overall for thoroughness at this date. Increased assist for clothing management at this time as well Bed Mobility Supine to sit: SBA Sit to supine: SBA Scooting: SBA Head of bed elevated. Mild complaints of dizziness with positional changes that subsides quickly with seated rest break standby assist overall for bilateral lower extreme management and trunk control with no physical assist required. Increased time to complete with increased pain noted with activity. Transfers/Mobility Sit to stand: Mod Assist Stand to sit: Min Assist Toilet: Mod Assist Functional mobility: Contact Guard Patient completed sit to stand transfers x 2 this date to front wheel walker. Mod assist overall for lift into standing both from edge of bed and from bathroom level toilet with cueing throughout for proper hand placement and bilateral lower extremity management for proper base support. No complaints of dizziness with positional changes at this time. She was able to complete short mobility to and from bathroom with initial min assist progressing to contact-guard assist overall. Cueing for proper front wheel walker management with assist for obstacle negotiation required. Increased time required to complete with increased pain reported with activity. Device(s) used: Front wheeled walker Plan Continue acute OT per plan of care. Safety/Education Safety Safety Devices in place: All fall risk precautions in place, call light within reach, left in bed, bed alarm in place, gait belt, patient at risk for falls, and nurse notified Restraints: No Education Education Given To: patient Education Provided: Plan of Care, ADL Adaptive Strategies, Transfer Training, Equipment, Fall Prevention Education, Discharge Recommendations, and Benefits of Increasing Activity Education Method: Verbal, Demonstration, and Teach Back Barriers to Learning: Cognition Education Outcome: Verbalized Understanding, Demonstrated Understanding, and Continued Education Needed AM-PAC AM-PAC Inpatient Daily Activity Raw Score: 17 ADL Inpatient CMS G-Code Modifier: CK Goals Patient Stated Goal: did not state Encounter Problems Encounter Problems (Active) Balance Patient will tolerate standing for 4 minutes with SBA to allow participation in ADL tasks (Progressing) Start: 06/15/24 Expected End: 06/21/24 Dressing Upper Extremities Patient will complete upper body dressing with setup/supervision (Initiated) Start: 06/15/24 Expected End: 06/21/24 Dressings Lower Extremities Patient will dress lower body with SBA (Progressing) Start: 06/15/24 Expected End: 06/21/24 Mobility Patient will demonstrate functional ambulation with LRD at SBA level (Progressing) Start: 06/15/24 Expected End: 06/21/24 Toileting Patient will complete toileting tasks at standard toilet with SBA. (Progressing) Start: 06/15/24 Expected End: 06/21/24 Transfers Patient will complete functional transfer with least restrictive device with SBA in order to prepare for ambulation. (Progressing) Start: 06/15/24 Expected End: 06/21/24 Therapy Time Individual Co-treatment Time In 1427 Time Out 1500 Minutes 33 Timed Code Treatment Minutes: 28 Minutes (ADL x2) Britton Lomas OT Hospitalist Progress Note 06/17/2024 [id number]: Please page me ([phone]) for patient care issues. [phone]: Please page [facility] Hospitalist for any issues. Subjective: Admit Date: 06/13/2024 PCP: No primary care provider on file. Room#: B4466/B4466 A Interval History: patient admitted for sepsis in setting of bacteremia and COVID 19. No overnight issues. Still confused, pleasant no signs of agitation or anxiety. Adult diet Regular; 5 carb choices (75 gm/meal) 24HR INTAKE/OUTPUT: Intake/Output Summary (Last 24 hours) at 06/17/2024 1358 Last data filed at 06/17/2024 0807 Gross per 24 hour Intake 100 ml Output -- Net 100 ml Past Medical History: History reviewed. No pertinent past medical history. LABS: CBC: Recent Labs 06/15/242 06/16/2462506/17/24 0402 WBC 10.7 7.7 6.1 RBC 2.93* 2.98* 2.98* HGB 8.9* 9.0* 8.9* HCT 27.2* 27.3* 27.6* MCV 92.8 91.6 92.6 RDW 12.7 12.7 13.2 PLT 199 217 228 BMP: Recent Labs 06/15/242 06/16/2462506/17/24 0402 NA 128* 132* 132* K 3.6 3.5 3.6 CL 96* 103 105 CO2 28 24 25 BUN 29* 24* 24* CREATININE 0.82 0.70 0.83 GLUCOSE 290* 246* 206* CALCIUM 8.3* 8.0* 7.7* ANIONGAP 4 5 2* LIVER PROFILE: No results for input(s): "AST", "ALT", "BILITOT", "ALKPHOS", "PROT" in the last 72 hours. No lab exists for component: LABALBU PT/INR: No results for input(s): "PROTIME", "INR" in the last 72 hours. CARDIAC ENZYMES: No results for input(s): "TROPONINI" in the last 72 hours. Procalcitonin: No results found for: "PROCAL" COVID-19 PCR: No results for input(s): "COVID19" in the last 72 hours. Objective: Vitals: BP 138/66 (BP Location: Right arm, Patient Position: Lying) Pulse 69 Temp 36.4 C (97.5 F) (Temporal) Resp 22 Ht 5' 5" (1.651 m) Wt 150 lb (68 kg) SpO2 97% BMI 24.96 kg/m Pulse Ox: SpO2 Av % Min: 97 % Max: 100 % Supplemental O2: O2 Flow Rate (L/min): 2 L/min General appearance: No apparent distress, appears stated age and cooperative with exam, elderly female in NAD HEENT: left facial bruising Respiratory: diminished BL, CTA otherwise. Cardiovascular: Regular rate and rhythm with no murmur Abdomen: Soft, non-tender, non-distended Skin: Skin color, texture, turgor normal. No rashes or lesions. Distal pulses intact in BL LE, no edema in BL LE Neurologic: Neurovascularly intact without any focal sensory/motor deficits. Cranial nerves: II-XII intact, grossly non-focal. Medications: sodium chloride, 150 mL/hr, Last Rate: 150 mL/hr (06/17/24 0941) amoxicillin, 500 mg, Oral, 3 times per day atorvastatin, 40 mg, Oral, Daily buPROPion XL, 150 mg, Oral, Daily dexAMETHasone, 6 mg, Oral, Daily enoxaparin, 40 mg, SubCUTAneous, Daily insulin glargine, 30 Units, SubCUTAneous, Daily insulin lispro, 0-18 Units, SubCUTAneous, TID WC And insulin lispro, 0-18 Units, SubCUTAneous, Nightly levothyroxine, 175 mcg, Oral, qAM AC remdesivir (Veklury) 100 mg in sodium chloride 0.9 % 250 mL IVPB, 100 mg, IntraVENous, q24h venlafaxine XR, 37.5 mg, Oral, Daily Assessment Acute hypoxic respiratory failure COVID 19 PNA Remdesivir and decadron Supplemental O2, wean as tolerated Symptomatic management PRN Patient is not on supplemental O2 at baseline CXR reviewed negative for PNA Abx changed to amoxicillin through 06/26 Bacteremia, Ecoli Discussed with ID abx stewardship committee, changed to amoxicillin through 06/26/24. UTI Acute cystitis Suspected right pyelonephritis Simple sepsis Sensitivities pending UA and UC reviewed Broad coverage abx Left facial bruising Mechanical fall suspected Patient without fall reported from SNF CT of head negative Monitor status DM type 2 SSI coverage Basal insulin resumed Monitor BG in setting of steroids as above Hypothyroidism Levothyroxine resumed Hx of CVA Statin, ASA and plavix CT of head negative Hyponatremia Urine studies and serum osm pending BMP in the AM. Medical Decision Making 06/14/24: patient with increased cough and headache. She is found to have simple sepsis and positive BC for e coli, imaging showing suspected right pyelonephritis and suspected cystitis as well. UA and culture pending. She is also COVID 19 positive with hypoxia. She is being treated with broad spectrum abx, decadron, remdesivir. Wean O2 as tolerated. CXR not obtained in the ED? Imaging pending. She has some bruising on left face, no reported fall? CT of head negative. Home medications reviewed and resumed as indicated. CBC and BMP in the AM. 06/15/24: patient weaned to RA, stable respiratory status, continue to wait for UA and culture pending. BC remain positive, sensitivities pending. Continue broad coverage abx. CT head negative, CXR negative as well for PNA. Sodium dropped to 128 today, urine studies pending, serum osm pending. CBC and BMP in the AM. PT/OT eval and treat, recommending SNF on discharge. 06/16/24: patient with increased cough and headache. She is found to have simple sepsis and positive BC for e coli, imaging showing suspected right pyelonephritis and suspected cystitis as well. She is also COVID 19 positive with hypoxia. On decadron and remdesivir. CT head negative. CXR negative for PNA as well. Sodium improved today. Encourage PO intake. Discussed with ID abx stewardship committee today, change abx to amoxicillin through 06/26/24 for bacteremia. PT/OT recommending SNF, CM following. Labs and vitals reviewed and stable. CBC And BMP in the AM. 06/[id number], remdesivir day 4, continue Decadron. For E. coli bacteremia, ID recommended amoxicillin until 06/26. Patient is still confused no signs of agitation or anxiety. PT OT evaluated the patient recommending [facility]. Possible discharge in next 1 to 2 days -am labs, replace lytes prn -increase activity -resume home medications as indicated -DVT prophylaxis: [x] Lovenox [] Heparin [] SCDs [x] Encourage ambulation [] Already on Anticoagulation Anticipated Discharge - Date -tomorrow - Location - Home vs SNF - Pending the following - improvement in respiratory status Toxic drug monitoring/narrow therapeutic index drug monitoring : # Drug name : # Route administered : # Method of monitoring : Extended Emergency Contact Information Primary Emergency Contact: Elsi Rooney Mobile Relation: [id number] Tien Hairston MD Division of Hospitalist Medicine Inpatient Medical Services/[facility] PAGER: Epic chat Images from the original note were not included. PHYSICAL THERAPY [facility] Treatment Note Name/MRN: Marcia Rooney ([id number]) Date of : 1945 Age: 78 y.o. Room[facility]Bed: [facility] A Visit #: 2 out of 7 visits Discharge Recommendation: Snf Facility Equipment Needed: No Prior Level of Function Prior Level of ADL Function: Required Assist Prior Level of Mobility: Required Assist; Device: Front wheeled walker Prior Level of Transfers: Required Assist Assessment Pt demos minimal improvement in functional mobility and progress toward therapy goals. Pt requires SBA for bed mobility, min-max A x1 for functional transfers, min-mod A for lateral steps, short ambulation. Pt is currently limited by cognition, nausea/vomiting, dizziness. Pt will continue to benefit from acute skilled PT to address current deficits. Recommendation for SNF remains appropriate. Pt may benefit from vestibular evaluation in future sessions due to significant dizziness with position changes. Subjective Pt pleasant and agreeable to therapy session Pain: [place]iggins Pain Ratin = Hurts even more Pain Location: B knees with mobility Medical Precautions: Droplet Plus Proper PPE donned/doffed in accordance with facility standards. Fall Risk: Jacinto Fall Risk Score: 75 (High Risk) Precautions/Restrictions: Fall Precautions Overall Cognitive Status: Exceptions - Attention span: attends with cues to redirect - Memory: decreased recall of recent events and decreased short term memory - Safety judgement: decreased awareness of need for assistance and decreased awareness of need for safety - Problem solving: assistance required to generate solutions, assistance required to implement solutions, assistance required to identify errors made, assistance required to correct errors made, and decreased awareness of errors - Insights: decreased awareness of deficits - Initiation: requires cues for some - Sequencing: requires cues for some Overall Orientation Status: Oriented to Person Family/Caregiver Present: none Objective Bed Mobility Supine to sit: SBA Sit to supine: SBA Pt completes bed mobility at SBA with HOB elevated and use of bed rails. Increased time and effort required to complete. Pt reports increased dizziness with position changes especially with head turns. Pt with multiple bouts of emesis at end of session, RN aware and gathering meds for pt at end of session. Transfers/Mobility Sit to stand: Min Assist, Mod Assist Stand to sit: Mod Assist, Max Assist Pt completes x2 sit<->stand from EOB to FWW. Pt requires initial min A x1 to elevate into upright stand with cues for hand placement and anterior weightshift. Pt returns to sitting requiring mod A x1 to assist in controlled descent due to knee buckling/pain. Pt completes additional sit->stand from EOB to FWW requiring mod A x1 to elevate and max A x1 to assist in controlled descent due to significant B knee buckling and assist to align to surface. Cues provided throughout for hand and foot placement with fair carryover. Device(s) used: Front wheeled walker Ambulation Ambulation 1 Assistive device(s) used: Front wheeled walker Assist level: Min Assist, Mod Assist Distance (ft): ~4 lateral steps, ~2 feet forward/retro Quality of gait: step to pattern, shuffling, slow catia Pt demos short, step to gait pattern, decreased gait speed. Pt requires min-mod A x1 for general stability, weightshifting and FWW management. Pt limited by fatigue. Balance During Session: Posture: fair Sitting - Static: SBA Sitting - Dynamic: SBA Standing - Static: Min Assist Standing - Dynamic: Min Assist, Mod Assist Pt completes static and dynamic standing balance at FWW requiring min-mod A x1 for anterior weightshift to maintain upright stand. Plan Continue acute PT per plan of care. Safety/Education Safety Safety Devices in place: All fall risk precautions in place, call light within reach, left in bed, bed alarm in place, gait belt, patient at risk for falls, and nurse notified Restraints: N/A Education Education Given To: patient Education Provided: PT Role, PT Goals, Gait Training, Plan of Care, Transfer Training, Equipment, and Benefits of Increasing Activity Education Method: Verbal and Demonstration Barriers to Learning: Cognition Education Outcome: Verbalized Understanding, Demonstrated Understanding, and Continued Education Needed Outcome Measures AM-PAC AM-PAC Inpatient Mobility Raw Score (No Stairs) : 12 Goals Patient Stated Goal: none stated. Encounter Problems Encounter Problems (Active) Balance Patient will maintain dynamic standing balance for 5 minutes with CGA in order to demonstrate decreased risk of falling. (Progressing) Start: 06/15/24 Expected End: 06/21/24 Exercise Patient will complete lower extremity exercises for 1-2 sets / 10-15 reps in order to improve strength and activity tolerance for mobility. (Not Addressed) Start: 06/15/24 Expected End: 06/21/24 Mobility Patient will ambulate 20 feet with CGA and least restrictive device in order to improve safety and independence with mobility. (Progressing) Start: 06/15/24 Expected End: 06/21/24 Pain - Adult Transfers Patient will perform bed mobility with supervision in order to improve independence and prepare for out of bed mobility. (Progressing) Start: 06/15/24 Expected End: 06/21/24 Patient will complete functional transfer with least restrictive device with CGA in order to prepare for ambulation. (Progressing) Start: 06/15/24 Expected End: 06/21/24 Therapy Time Individual Co-treatment Time In 0909 Time Out 0928 Minutes 19 Timed Code Treatment Minutes: 15 Minutes (ther act x1) Roxanna Caba PT Images from the original note were not included. PHYSICAL THERAPY [facility] Treatment Note Name/MRN: Marcia Rooney ([id number]) Date of : 1945 Age: 78 y.o. Room/Bed: [facility] A Visit #: 1 out of 7 visits Discharge Recommendation: Snf Facility Equipment Needed: No Prior Level of Function Prior Level of ADL Function: Required Assist Prior Level of Mobility: Required Assist; Device: Front wheeled walker Prior Level of Transfers: Required Assist Assessment Pt tolerated session fair. No pain reported. Pt limited by cognition and increased dizziness this session. Vitals WFL throughout session. Pt found soiled, incontinent of urine. Pt able to tolerate multiple STS transfers this session with Min assist to dof brief, pants and gown, and required max assist to complete supine pericare. Pt will continue to benefit from skilled PT interventions including strength and functional transfers. Continue to recommend SNF for discharge. Subjective Pt pleasantly confused and agreeable to therapy. Pt repeating herself frequently due to memory loss. Pt telling stories about her adopted son. Pt had to be encouraged to let this WALLBOARD WORKER change her out of her wet clothes. She stated " I pee all the time, there's no use" Pt educated on risks of sitting in wet clothes for extended amount of time. Fair/poor teach back. Observation: In bed, IV and tele monitor in tact. Vitals: Vitals Heart Rate: 68 SpO2: 100 % Heart Rate Source: Monitor BP: 107/54 MAP (mmHg): 72 Pt reporting dizziness throughout session. Vitals WFL. Pain: Pt denies any current pain. Medical Precautions: Droplet Plus Proper PPE donned/doffed in accordance with facility standards. Fall Risk: Jacinto Fall Risk Score: 85 (High Risk) Precautions/Restrictions: Fall Precautions Overall Cognitive Status: Exceptions - Following commands: follows one step commands with repetition - Attention span: attends with cues to redirect - Memory: decreased short term memory - Safety judgement: decreased awareness of need for assistance and decreased awareness of need for safety - Problem solving: assistance required to generate solutions, assistance required to implement solutions, assistance required to identify errors made, assistance required to correct errors made, and decreased awareness of errors - Initiation: requires cues for some - Sequencing: requires cues for some Pt unsure of where she was at time and saying things like well if I'm admitted to the hospital....." and then asking is this [place]? Overall Orientation Status: Oriented to Person Family/Caregiver Present: none Objective Bed Mobility Supine to sit: Min Assist Sit to supine: Min Assist Rolling to right: Min Assist Rolling to left: Min Assist Scooting: SBA Pt required hands on assist for majority of bed mobility. Pt reporting increased dizziness after any movement. Pt required increased time to complete movement, and then extra time taken for dizziness to decrease after movement. Pt encouraged to look at one still object during transition. Fair teach back. Pt closing eyes and then opening them and darting eyes around looking all over. Transfers/Mobility Sit to stand: Min Assist Stand to sit: Min Assist Pt cued for correct hand and foot placement. Good teach back with increased time. Pt completed multiple STS while donning and doffing briefs, pants and gown. Stands lasted from 1 second- 15 seconds before pt sat down due to increased dizziness. Fair eccentric control. Device(s) used: Front wheeled walker Plan Continue acute PT per plan of care. Safety/Education Safety Safety Devices in place: All fall risk precautions in place, call light within reach, left in bed, gait belt, patient at risk for falls, and nurse notified Restraints: No Education Education Given To: patient Education Provided: PT Role, PT Goals, Plan of Care, Transfer Training, and Benefits of Increasing Activity Education Method: Verbal, Demonstration, and Teach Back Barriers to Learning: Cognition Education Outcome: Verbalized Understanding, Demonstrated Understanding, and Continued Education Needed Outcome Measures AM-PAC AM-PAC Inpatient Mobility Raw Score (No Stairs) : 12 [facility] Goals Patient Stated Goal: none stated. Encounter Problems Encounter Problems (Active) Balance Patient will maintain dynamic standing balance for 5 minutes with CGA in order to demonstrate decreased risk of falling. (Progressing) Start: 06/15/24 Expected End: 06/21/24 Exercise Patient will complete lower extremity exercises for 1-2 sets / 10-15 reps in order to improve strength and activity tolerance for mobility. (Not Addressed) Start: 06/15/24 Expected End: 06/21/24 Mobility Patient will ambulate 20 feet with CGA and least restrictive device in order to improve safety and independence with mobility. (Not Addressed) Start: 06/15/24 Expected End: 06/21/24 Pain - Adult Transfers Patient will perform bed mobility with supervision in order to improve independence and prepare for out of bed mobility. (Progressing) Start: 06/15/24 Expected End: 06/21/24 Patient will complete functional transfer with least restrictive device with CGA in order to prepare for ambulation. (Progressing) Start: 06/15/24 Expected End: 06/21/24 Therapy Time Individual Co-treatment Time In 1447 Time Out 1520 Minutes 33 Timed Code Treatment Minutes: 29 Minutes (2 active function) Radha Mckinnon PTA Cosigned by Sandoval Puckett PT at 06/17/2024 8:00 AM EST Images from the original note were not included. OCCUPATIONAL THERAPY [facility] Treatment Note Name/MRN: Marcia Rooney ([id number]) Date of : 1945 Age: 78 y.o. [facility] A Visit #: 1 out of 6 visits Discharge Recommendation: Snf Facility Prior Level of Function Prior Level of ADL Function: Required Assist Prior Level of Mobility: Required Assist; Device: Front wheeled walker Prior Level of Transfers: Required Assist Assessment Pt seen this date for OT treatment focusing on functional transfers / mobility, LB dressing and toileting ADLs with increased time required for all functional tasks. Increased cueing throughout for sequencing and problem solving this date. She requires MOD - MIN A for LB dressing tasks this date, MOD - MIN A for transfers / mobility with a FWW, and MIN A for bed mobility. She would continue to benefit from skilled OT services to improve her independence and safety. Recommend planned discharge for SNF at this time. Subjective Pleasant and cooperative. OK to see per RN. Agreeable to therapy treatment. Pain: 0-10 pain scale: 7/10 Location: [facility] Medical Precautions: Droplet Plus Proper PPE donned/doffed in accordance with facility standards. Fall Risk: Jacinto Fall Risk Score: 85 (High Risk) Precautions/Restrictions: Fall Precautions Family/Caregiver Present: none Objective ADLs LE Dressing: Min Assist, Mod Assist Toileting: Mod Assist UE Dressing: SBA Pt requires increased time this date to complete all functional tasks. No true LOB noted during OOB activity. Pt completed LB dressing tasks x2 this date with increased time. She initially completed LB dressing with hospital pants in sitting at EOB with MIN A overall to assist with threading of BLE through hospital pants and to manage up over hips. Grossly able to thread BLE without assist, however increased difficulty with management over hospital socks. She required assist to manage up over hips posteriorly in standing 2/2 instability with increased reliance on FWW for safety. Following mobility to bathroom, pt required increased time to complete pericare this date, however no physical assist required. She required completion of 2nd dressing task following toileting tasks 2/2 incontinence and soiled brief. MOD A overall to don [facility] pants and briefs this date with assist to thread BLE through briefs and pants at toilet level with increased fatigue noted from pt. Bed Mobility Supine to sit: Min Assist Sit to supine: Min Assist Scooting: Min Assist HOB elevated, increased time required to complete. Denies dizziness with positional changes. Pt requires increased reliance on bed rails and pull up on therapist to reach EOB at this time with MIN A overall. No physical assist for BLE mangement, however MIN A overall for trunk control and to scoot up in bed. Transfers/Mobility Sit to stand: Mod Assist Stand to sit: Mod Assist Toilet: Mod Assist Functional mobility: Min Assist Pt completed sit<>stand from EOB to FWW with MOD A overall for lift into standing and for controlled descent. Cueing for proper hand placement for push up from / reach back for seated surfaces with good teach back noted. Good BLE management noted for proper KACY this date this date. She required 1 v.c. to correct posture with positional changes. Increased reliance on FWW for balance in standing at this time. She required MIN A overall for short mobiltiy to / from bathroom with increased time and cueing for obstacle negotiation. Assist for line management. She required MOD A for toilet transfers this date with increased reliance on grab bars for safety and stability. Increased time required to complete. Device(s) used: Front wheeled walker Cognition - Following commands: follows one step commands with repetition - Attention span: attends with cues to redirect - Safety judgement: decreased awareness of need for assistance and decreased awareness of need for safety - Problem solving: assistance required to generate solutions, assistance required to implement solutions, assistance required to identify errors made, assistance required to correct errors made, and decreased awareness of errors - Insights: decreased awareness of deficits - Initiation: requires cues for some - Sequencing: requires cues for some Plan Continue acute OT per plan of care. Safety/Education Safety Safety Devices in place: All fall risk precautions in place, call light within reach, left in bed, bed alarm in place, gait belt, patient at risk for falls, and nurse notified Restraints: No Education Education Given To: patient Education Provided: OT Role, Plan of Care, Precautions, ADL Adaptive Strategies, Transfer Training, Equipment, Fall Prevention Education, Discharge Recommendations, and Benefits of Increasing Activity Education Method: Verbal, Demonstration, and Teach Back Barriers to Learning: Cognition Education Outcome: Verbalized Understanding, Demonstrated Understanding, and Continued Education Needed AM-PAC AM-PAC Inpatient Daily Activity Raw Score: 17 ADL Inpatient CMS G-Code Modifier: CK Goals Patient Stated Goal: did not state Encounter Problems Encounter Problems (Active) Balance Patient will tolerate standing for 4 minutes with SBA to allow participation in ADL tasks (Slowly Progressing) Start: 06/15/24 Expected End: 06/21/24 Dressing Upper Extremities Patient will complete upper body dressing with setup/supervision (Progressing) Start: 06/15/24 Expected End: 06/21/24 Dressings Lower Extremities Patient will dress lower body with SBA (Progressing) Start: 06/15/24 Expected End: 06/21/24 Mobility Patient will demonstrate functional ambulation with LRD at SBA level (Progressing) Start: 06/15/24 Expected End: 06/21/24 Toileting Patient will complete toileting tasks at standard toilet with SBA. (Progressing) Start: 06/15/24 Expected End: 06/21/24 Transfers Patient will complete functional transfer with least restrictive device with SBA in order to prepare for ambulation. (Progressing) Start: 06/15/24 Expected End: 06/21/24 Therapy Time Individual Co-treatment Time In 1116 Time Out 1200 Minutes 44 Timed Code Treatment Minutes: 40 Minutes (ADL x2, TA x1) Britton Lomas OT Hospitalist Progress Note 06/16/2024 [id number]: Please page nd [phone]) for patient care issues. [phone]: Please page [facility] Hospitalist for any issues. Subjective: Admit Date: 06/13/2024 PCP: No primary care provider on file. Room#: M1-171/M0-028 A Interval History: patient admitted for sepsis in setting of bacteremia and COVID 19. No overnight issues. Denies chest pain, sob, abdominal pain, nausea, vomiting, diarrhea, constipation, fevers, or chills. SOB resolved. Adult diet Regular; 5 carb choices (75 gm/meal) 24HR INTAKE/OUTPUT: No intake or output data in the 24 hours ending 06/16/24 1301 Past Medical History: No past medical history on file. LABS: CBC: Recent Labs 06/14/24 0348 06/15/242 06/16/24 0626 WBC 11.4* 10.7 7.7 RBC 3.42* 2.93* 2.98* HGB 10.3* 8.9* 9.0* HCT 32.5* 27.2* 27.3* MCV 95.0 92.8 91.6 RDW 12.7 12.7 12.7 PLT 197 199 217 BMP: Recent Labs 06/14/24 0048 06/14/24 1733 06/15/2432106/16/24 0626 NA 133* -- 128* 132* K 3.4* -- 3.6 3.5 CL 98 -- 96* 103 CO2 32* -- 28 24 BUN 21* -- 29* 24* CREATININE 0.70 -- 0.82 0.70 GLUCOSE 191* 510* 290* 246* CALCIUM 8.7 -- 8.3* 8.0* ANIONGAP 4 -- 4 5 LIVER PROFILE: Recent Labs 06/13/24 1722 06/14/24 0048 AST 36 42 ALT 12 12 BILITOT 2.2* 1.7* ALKPHOS 146* 141* PROT 6.8 6.1* PT/INR: Recent Labs 06/13/241721 PROTIME 13.5* INR 1.2* CARDIAC ENZYMES: Recent Labs 06/13/24 1722 06/13/24202606/14/24 0048 TROPONINI <0.012 0.013 <0.012 Procalcitonin: Lab Results Component Value Date PROCAL 0.61 (H) 06/14/2024 COVID-19 PCR: No results for input(s): "COVID19" in the last 72 hours. Objective: Vitals: BP 114/74 (BP Location: Left arm, Patient Position: Lying) Pulse 95 Temp 36 C (96.8 F) (Temporal) Resp 18 Ht 5' 5" (1.651 m) Wt 150 lb (68 kg) SpO2 99% BMI 24.96 kg/m Pulse Ox: SpO2 Av.5 % Min: 96 % Max: 99 % Supplemental O2: O2 Flow Rate (L/min): 4 L/min General appearance: No apparent distress, appears stated age and cooperative with exam, elderly female in NAD HEENT: left facial bruising Respiratory: diminished BL, CTA otherwise. Cardiovascular: Regular rate and rhythm with no murmur Abdomen: Soft, non-tender, non-distended Skin: Skin color, texture, turgor normal. No rashes or lesions. Distal pulses intact in BL LE, no edema in BL LE Neurologic: Neurovascularly intact without any focal sensory/motor deficits. Cranial nerves: II-XII intact, grossly non-focal. Medications: sodium chloride, 150 mL/hr, Last Rate: 150 mL/hr (06/16/24 0613) atorvastatin, 40 mg, Oral, Daily buPROPion XL, 150 mg, Oral, Daily dexAMETHasone, 6 mg, Oral, Daily enoxaparin, 40 mg, SubCUTAneous, Daily insulin glargine, 30 Units, SubCUTAneous, Daily insulin lispro, 0-18 Units, SubCUTAneous, TID WC And insulin lispro, 0-18 Units, SubCUTAneous, Nightly levothyroxine, 175 mcg, Oral, qAM AC piperacillin-tazobactam, 3,375 mg, IntraVENous, q8h remdesivir (Veklury) 100 mg in sodium chloride 0.9 % 250 mL IVPB, 100 mg, IntraVENous, q24h venlafaxine XR, 37.5 mg, Oral, Daily Assessment Acute hypoxic respiratory failure COVID 19 PNA Remdesivir and decadron Supplemental O2, wean as tolerated Symptomatic management PRN Patient is not on supplemental O2 at baseline CXR reviewed negative for PNA Abx changed to amoxicillin through 06/26 Bacteremia, Ecoli Discussed with ID abx stewardship committee, changed to amoxicillin through 06/26/24. UTI Acute cystitis Suspected right pyelonephritis Simple sepsis Sensitivities pending UA and UC reviewed Broad coverage abx Left facial bruising Mechanical fall suspected Patient without fall reported from SNF CT of head negative Monitor status DM type 2 SSI coverage Basal insulin resumed Monitor BG in setting of steroids as above Hypothyroidism Levothyroxine resumed Hx of CVA Statin, ASA and plavix CT of head negative Hyponatremia Urine studies and serum osm pending BMP in the AM. Medical Decision Making 06/14/24: patient with increased cough and headache. She is found to have simple sepsis and positive BC for e coli, imaging showing suspected right pyelonephritis and suspected cystitis as well. UA and culture pending. She is also COVID 19 positive with hypoxia. She is being treated with broad spectrum abx, decadron, remdesivir. Wean O2 as tolerated. CXR not obtained in the ED? Imaging pending. She has some bruising on left face, no reported fall? CT of head negative. Home medications reviewed and resumed as indicated. CBC and BMP in the AM. 06/15/24: patient weaned to RA, stable respiratory status, continue to wait for UA and culture pending. BC remain positive, sensitivities pending. Continue broad coverage abx. CT head negative, CXR negative as well for PNA. Sodium dropped to 128 today, urine studies pending, serum osm pending. CBC and BMP in the AM. PT/OT eval and treat, recommending SNF on discharge. 06/16/24: patient with increased cough and headache. She is found to have simple sepsis and positive BC for e coli, imaging showing suspected right pyelonephritis and suspected cystitis as well. She is also COVID 19 positive with hypoxia. On decadron and remdesivir. CT head negative. CXR negative for PNA as well. Sodium improved today. Encourage PO intake. Discussed with ID abx stewardship committee today, change abx to amoxicillin through 06/26/24 for bacteremia. PT/OT recommending SNF, CM following. Labs and vitals reviewed and stable. CBC And BMP in the AM. -am labs, replace lytes prn -increase activity -resume home medications as indicated -DVT prophylaxis: [x] Lovenox [] Heparin [] SCDs [x] Encourage ambulation [] Already on Anticoagulation Anticipated Discharge - Date - 06/16 vs 06/17? - Location - Home vs SNF - Pending the following - improvement in respiratory status Toxic drug monitoring/narrow therapeutic index drug monitoring : # Drug name : # Route administered : # Method of monitoring : Extended Emergency Contact Information Primary Emergency Contact: Elsi Rooney Mobile Relation: [id number] Elia Celis DO [facility] PAGER: Epic chat Images from the original note were not included. OCCUPATIONAL THERAPY [facility] Initial Evaluation Name/MRN: Marcia Rooney ([id number]) Evaluation Date: 06/15/2024 Date of : 1945 Admission Date: 06/13/2024 4:36 PM Age: 78 y.o. Room/Bed: B4-466/B4-466 A Discharge Recommendation: Snf Facility Assessment IMPRESSION: Pt admitted to ED on 06/13 with c/o nausea and vomiting. H/o Alzheimer's. Prior to admission, pt lived at SNF and performed ADLs and mobility indep per pt, although pt is a poor historian. Upon eval, pt required SBA for bed mobility, min assist for side stepping with FWW, and min assist and cues for ADLs. Pt demonstrates confusion. Recommend return to SNF upon DC. Pt would benefit from skilled OT services in order to increase safety and independence in occupational tasks. Admitting Diagnosis: COVID Performance Deficits /Impairments: Increased Pain, Decreased Functional Mobility, Decreased ADL status, Decreased Strength, Decreased Safety Awareness, Decreased Endurance, Decreased Balance, and Decreased Cognition Prognosis: Good Decision Making: Medium Complexity Subjective OK to see pt per nurse. Pt lying in bed upon therapist arrival. Agreeable to evaluation. Multiple IV Lines Pain: 0-10 pain scale: did not state Location: [facility] Past Medical History: No past medical history on file. Past Surgical History: No past surgical history on file. Admission Diagnosis: Patient Active Problem List Diagnosis Date Noted COVID 06/13/2024 Medical Precautions: Droplet Plus Proper PPE donned/doffed in accordance with facility standards. Fall Risk: Jacinto Fall Risk Score: 45 (High Risk) Precautions/Restrictions: Fall Precautions Family/Caregiver Present: none Overall Cognitive Status: Exceptions - Memory: decreased recall of biographical information, decreased recall of recent events, decreased short term memory, and decreased [employer] memory - Safety judgement: decreased awareness of need for assistance and decreased awareness of need for safety - Problem solving: assistance required to generate solutions, assistance required to implement solutions, assistance required to identify errors made, assistance required to correct errors made, and decreased awareness of errors - Insights: decreased awareness of deficits - Sequencing: requires cues for some Overall Orientation Status: Oriented to Time, Oriented to Person, Disoriented to Situation, and Disoriented to Place Social/Functional History Patient admitted from SNF. Assistive Equipment: front wheeled walker Prior Level of Function Prior Level of ADL Function: Required Assist Prior Level of Mobility: Required Assist; Device: Front wheeled walker Prior Level of Transfers: Required Assist Objective ADLs Sitting EOB, doff/don socks with SBA. Anticipate pt would required min assist overall for LB ADL's for standing balance Upper Extremity Assessment AROM: WFL PROM: WFL Noted R 4th digit with flexion contracture Strength: Exceptions: generalized weakness Vision: wears glasses at all times and and are NOT being used during the eval and blind L eye Hearing: normal Bed Mobility Supine to sit: SBA Sit to supine: SBA Scooting: SBA HOB raised and use of bed rails. No reports of dizziness with positional changes. Cues for sequencing and problem solving. Transfers/Functional Mobility Sit to stand: Min Assist Stand to sit: Min Assist Stand step: Min Assist Sitting balance: SBA Standing balance: Min Assist Device(s) used: Front wheeled walker Sitting EOB to standing at FWW, min assist and cues for hand placement. Side step x 4 with FWW, min assist. Standing at FWW to sitting EOB, min assist. Hand dominance: Right AM-PAC AM-PAC Inpatient Daily Activity Raw Score: 19 ADL Inpatient CMS G-Code Modifier: CK Plan Pt would benefit from skilled acute OT services to address Strengthening, Balance Training, Self-Care/ADL Training, Functional Mobility Training, Endurance Training, Safety Education and Training, Cognitive Reorientation, and Patient/Caregiver Training. Frequency: 6 visits during current hospital admission or until additional recommendations are made Barriers: Pain, Impaired balance, Decreased endurance, Limited safety awareness, Confusion, Cognitive deficit, and Long standing deficits Safety/Education Safety Safety Devices in place: All fall risk precautions in place, call light within reach, left in bed, bed alarm in place, gait belt, patient at risk for falls, and nurse notified Restraints: N/A Education Education Given To: patient Education Provided: OT Role, Plan of Care, ADL Adaptive Strategies, Transfer Training, Discharge Recommendations, and Benefits of Increasing Activity Education Method: Verbal and Demonstration Barriers to Learning: Cognition Education Outcome: Verbalized Understanding and Continued Education Needed Goals Patient Stated Goal: did not state Encounter Problems Encounter Problems (Active) Balance Patient will tolerate standing for 4 minutes with SBA to allow participation in ADL tasks Start: 06/15/24 Expected End: 06/21/24 Dressing Upper Extremities Patient will complete upper body dressing with setup/supervision Start: 06/15/24 Expected End: 06/21/24 Dressings Lower Extremities Patient will dress lower body with SBA Start: 06/15/24 Expected End: 06/21/24 Mobility Patient will demonstrate functional ambulation with LRD at SBA level Start: 06/15/24 Expected End: 06/21/24 Toileting Patient will complete toileting tasks at standard toilet with SBA. Start: 06/15/24 Expected End: 06/21/24 Transfers Patient will complete functional transfer with least restrictive device with SBA in order to prepare for ambulation. Start: 06/15/24 Expected End: 06/21/24 Therapy Time Individual Co-treatment Time In 1400 Time Out 1420 Minutes [address] Patient's Occupational Therapy Plan of Care supervision is transferred to a [facility] Occupational Therapist. Goals and/or treatment plan was established in collaboration with patient/family/other representatives. Hospitalist Progress Note 06/15/2024 [phone]: Please page me ([phone]) for patient care issues. [phone]: Please page [facility] Hospitalist for any issues. Subjective: Admit Date: 06/13/2024 PCP: No primary care provider on file. Room#: B4-255/B4-787 A Interval History: patient admitted for sepsis in setting of bacteremia and COVID 19. No overnight issues. Denies chest pain, sob, abdominal pain, nausea, vomiting, diarrhea, constipation, fevers, or chills. Reports SOB improving. Adult diet Regular; 5 carb choices (75 gm/meal) 24HR INTAKE/OUTPUT: Intake/Output Summary (Last 24 hours) at 06/15/2024 1354 Last data filed at 06/14/2024 2321 Gross per 24 hour Intake 1827.5 ml Output -- Net 1827.5 ml Past Medical History: No past medical history on file. LABS: CBC: Recent Labs 06/13/24 1849 06/14/24 0348 06/15/24 0322 WBC 9.5 11.4* 10.7 RBC 2.98* 3.42* 2.93* HGB 9.3* 10.3* 8.9* HCT 27.5* 32.5* 27.2* MCV 92.3 95.0 92.8 RDW 13.0 12.7 12.7 PLT 191 197 199 BMP: Recent Labs 06/13/24 1722 06/14/24 0048 06/14/24173206/15/24 0322 NA 133* 133* -- 128* K 3.9 3.4* -- 3.6 CL 95* 98 -- 96* CO2 36* 32* -- 28 BUN 22* 21* -- 29* CREATININE 0.67 0.70 -- 0.82 GLUCOSE 180* 191* 510* 290* CALCIUM 8.9 8.7 -- 8.3* ANIONGAP 2* 4 -- 4 LIVER PROFILE: Recent Labs 06/13/24 1722 06/14/24 0048 AST 36 42 ALT 12 12 BILITOT 2.2* 1.7* ALKPHOS 146* 141* PROT 6.8 6.1* PT/INR: Recent Labs 06/13/241721 PROTIME 13.5* INR 1.2* CARDIAC ENZYMES: Recent Labs 06/13/24 1722 06/13/24202606/14/24 0048 TROPONINI <0.012 0.013 <0.012 Procalcitonin: Lab Results Component Value Date PROCAL 0.61 (H) 06/14/2024 COVID-19 PCR: No results for input(s): "COVID19" in the last 72 hours. Objective: Vitals: BP (!) 112/48 (BP Location: Left arm, Patient Position: Lying) Pulse 64 Temp 36.1 C (97 F) (Temporal) Resp 17 Ht 5' 5" (1.651 m) Wt 150 lb (68 kg) SpO2 97% BMI 24.96 kg/m Pulse Ox: SpO2 Av.5 % Min: 97 % Max: 98 % Supplemental O2: O2 Flow Rate (L/min): 2 L/min General appearance: No apparent distress, appears stated age and cooperative with exam, elderly female in NAD HEENT: left facial bruising Respiratory: diminished BL, no crackles audible. No wheezing. Cardiovascular: Regular rate and rhythm with no murmur Abdomen: Soft, non-tender, non-distended Skin: Skin color, texture, turgor normal. No rashes or lesions. Distal pulses intact in BL LE, no edema in BL LE Neurologic: Neurovascularly intact without any focal sensory/motor deficits. Cranial nerves: II-XII intact, grossly non-focal. Medications: sodium chloride, 150 mL/hr, Last Rate: 150 mL/hr (06/15/24 0315) atorvastatin, 40 mg, Oral, Daily buPROPion XL, 150 mg, Oral, Daily dexAMETHasone, 6 mg, Oral, Daily enoxaparin, 40 mg, SubCUTAneous, Daily insulin glargine, 30 Units, SubCUTAneous, Daily insulin lispro, 0-18 Units, SubCUTAneous, TID WC And insulin lispro, 0-18 Units, SubCUTAneous, Nightly levothyroxine, 175 mcg, Oral, qAM AC piperacillin-tazobactam, 3,375 mg, IntraVENous, q8h remdesivir (Veklury) 100 mg in sodium chloride 0.9 % 250 mL IVPB, 100 mg, IntraVENous, q24h venlafaxine XR, 37.5 mg, Oral, Daily Assessment Acute hypoxic respiratory failure COVID 19 PNA Remdesivir and decadron Supplemental O2, wean as tolerated Symptomatic management PRN Patient is not on supplemental O2 at baseline CXR reviewed negative for PNA Bacteremia, Ecoli UTI Acute cystitis Suspected right pyelonephritis Simple sepsis Sensitivities pending UA and UC pending Broad coverage abx Left facial bruising Mechanical fall suspected Patient without fall reported from SNF CT of head negative Monitor status DM type 2 SSI coverage Basal insulin resumed Monitor BG in setting of steroids as above Hypothyroidism Levothyroxine resumed Hx of CVA Statin, ASA and plavix CT of head negative Hyponatremia Urine studies and serum osm pending BMP in the AM. Medical Decision Making 06/14/24: patient with increased cough and headache. She is found to have simple sepsis and positive BC for e coli, imaging showing suspected right pyelonephritis and suspected cystitis as well. UA and culture pending. She is also COVID 19 positive with hypoxia. She is being treated with broad spectrum abx, decadron, remdesivir. Wean O2 as tolerated. CXR not obtained in the ED? Imaging pending. She has some bruising on left face, no reported fall? CT of head negative. Home medications reviewed and resumed as indicated. CBC and BMP in the AM. 06/15/24: patient weaned to RA, stable respiratory status, continue to wait for UA and culture pending. BC remain positive, sensitivities pending. Continue broad coverage abx. CT head negative, CXR negative as well for PNA. Sodium dropped to 128 today, urine studies pending, serum osm pending. CBC and BMP in the AM. PT/OT eval and treat, recommending SNF on discharge. -am labs, replace lytes prn -increase activity -resume home medications as indicated -DVT prophylaxis: [x] Lovenox [] Heparin [] SCDs [x] Encourage ambulation [] Already on Anticoagulation Anticipated Discharge - Date - 06/16 vs 06/17? - Location - Home vs SNF - Pending the following - improvement in respiratory status Toxic drug monitoring/narrow therapeutic index drug monitoring : # Drug name : # Route administered : # Method of monitoring : Extended Emergency Contact Information Primary Emergency Contact: Elsi Rooney Mobile Relation: [id number] Elia Celis DO Division of Hospitalist Medicine Inpatient Medical Services/[facility] PAGER: [email or web address] Images from the original note were not included. PHYSICAL THERAPY [facility] Initial Evaluation Name/MRN: Marcia Rooney ([id number]) Evaluation Date: 06/15/2024 Date of : 1945 Admission Date: 06/13/2024 4:36 PM Age: 78 y.o. Room[facility]Bed: [facility] A Discharge Recommendation: Snf Facility Equipment Needed: No Assessment IMPRESSION: Pt admitted to ED on 06/13/24 with Covid and associated N/V. Prior to admission, pt resides at SNF and performed mobility with assist from facility. Pt reports being from home which contradicts pts charting. PMHx significant for Alzheimer's Dementia. Upon eval, pt required Min Ax1 for bed mobility, Mod Ax1 for transfers, Mod Ax1 for short bedside stepping/pre-gait with fww. Pt would benefit from skilled PT services in order to increase safety and independence in functional mobility and daily tasks. Recommend return to SNF upon DC. Admitting Diagnosis: Covid Prognosis: good Performance Deficits /Impairments: Decreased Functional Mobility, Decreased ADL status, Decreased Strength, Decreased Safety Awareness, Decreased Endurance, and Decreased Balance Decision Making: Medium Complexity Subjective Pt pleasant and agreeable to PT evaluation. RN cleared pt for session. Pain: Mcelroy-Riggins Pain Ratin = Hurts even more Pain Location: R groin with mobility. Past Medical History: No past medical history on file. Past Surgical History: No past surgical history on file. Admission Diagnosis: Patient Active Problem List Diagnosis Date Noted COVID 06/13/2024 Medical Precautions: Droplet Plus Proper PPE donned/doffed in accordance with facility standards. Fall Risk: Jacinto Fall Risk Score: 45 (High Risk) Precautions/Restrictions: N/A Family/Caregiver Present: none Overall Cognitive Status: Exceptions - Memory: decreased recall of recent events, decreased short term memory, and decreased fdc memory - Safety judgement: decreased awareness of need for assistance - Problem solving: assistance required to generate solutions, assistance required to implement solutions, assistance required to identify errors made, and assistance required to correct errors made - Insights: decreased awareness of deficits - Initiation: requires cues for some - Sequencing: requires cues for some Overall Orientation Status: Oriented to Place, Oriented to Situation, Oriented to Person, and Disoriented to Time Vision: no visual deficits Hearing: normal Social/Functional History Patient admitted from SNF. Assistive Equipment: front wheeled walker Prior Level of Function Prior Level of ADL Function: Required Assist Prior Level of Mobility: Required Assist; Device: Front wheeled walker Prior Level of Transfers: Required Assist Objective Lower Extremity Assessment AROM: WFL Strength: Gross strength in BLEs 3+/5, marked pain in L knee with MMT Sensation: WFL Bed Mobility: Supine to sit: Min Assist Sit to supine: Min Assist Pt required Min Ax1 for all bed mobility with increased cues for hand placement, body mechanics and overall sequencing to sit EOB and return to supine. Limited ability to tolerate EOB sitting d/t color of floor. Pt reports the blue sally makes it feel like I'm in a pool and it makes me really nauseous." Pt impulsively threw self posteriorly upon onset of nausea requiring assist to prevent pt from hitting head on bed rail. Redirection and reorientation to gaze fixation away from sally required. Increased time and effort needed to complete. Transfers Sit to stand: Mod Assist Stand to sit: Mod Assist Stand step: Mod Assist Pt completed STS x1 from EOB with fww at Mod Ax1. Additional forward stepping x3 and backwards x3 completed with Mod Ax1. BLE buckling noted and increased assistance required for postural stabilization. Cues for proper hand placement, sequencing and transfer surface approximation with fww management required. Ambulation Pre-gait training assessed at bedside, see transfer section for bedside stepping. Outcome Measures AM-PAC How much HELP from another person do you currently need Turning from your back to your side while in a flat bed without using bedrails?: A Little Moving from lying on your back to sitting on the side of a flat bed without using bedrails?: A Little Moving to and from a bed to a chair (including a wheelchair)?: A Lot Standing up from a chair using your arms (wheelchair or bedside chair)?: A Lot Walking in a hospital room?: A Lot Stair climbing assessed?: No AM-PAC Inpatient Mobility Raw Score (No Stairs) : 12 Plan Pt would benefit from skilled acute PT services to address Strengthening, Gait Training, Balance Training, Self-Care/ADL Training, Functional Mobility Training, Endurance Training, Safety Education and Training, and Pain Management. Frequency: 7 visits during current hospital admission or until additional recommendations are made Barriers: Pain, Impaired balance, Lower extremity weakness, Decreased endurance, Limited safety awareness, Confusion, and Cognitive deficit Safety/Education Safety Safety Devices in place: All fall risk precautions in place, call light within reach, left in bed, gait belt, patient at risk for falls, nurse notified, and no alarms engaged upon entry Restraints: N/A Education Education Given To: patient Education Provided: PT Role, PT Goals, Gait Training, Plan of Care, Transfer Training, IADL Safety, Equipment, Fall Prevention Education, Discharge Recommendations, and Benefits of Increasing Activity Education Method: Verbal and Demonstration Barriers to Learning: Cognition Education Outcome: Verbalized Understanding, Unable to Demonstrate, and Continued Education Needed Goals Patient Stated Goal: none stated. Encounter Problems Encounter Problems (Active) Balance Patient will maintain dynamic standing balance for 5 minutes with CGA in order to demonstrate decreased risk of falling. Start: 06/15/24 Expected End: 06/21/24 Exercise Patient will complete lower extremity exercises for 1-2 sets / 10-15 reps in order to improve strength and activity tolerance for mobility. Start: 06/15/24 Expected End: 06/21/24 Mobility Patient will ambulate 20 feet with CGA and least restrictive device in order to improve safety and independence with mobility. Start: 06/15/24 Expected End: 06/21/24 Pain - Adult Transfers Patient will perform bed mobility with supervision in order to improve independence and prepare for out of bed mobility. Start: 06/15/24 Expected End: 06/21/24 Patient will complete functional transfer with least restrictive device with CGA in order to prepare for ambulation. Start: 06/15/24 Expected End: 06/21/24 Therapy Time Individual Co-treatment Time In 1058 Time Out 1113 Minutes 15 Sandoval Puckett PT Patient's Physical Therapy Plan of Care supervision is transferred to a [facility] Physical Therapist. Goals and/or treatment plan was established in collaboration with patient/family/other representatives. Nutrition rescreen completed. Chart reviewed. Patient to be monitored and followed by the diet electronic bench technician. Dietitian available upon request. Hospitalist Progress Note 06/14/2024 [phone]: Please page me ([phone]) for patient care issues. [phone]: Please page [facility] Hospitalist for any issues. Subjective: Admit Date: 06/13/2024 PCP: No primary care provider on file. Room#: [facility] A Interval History: patient admitted for sepsis in setting of bacteremia and COVID 19. No overnight issues. Denies chest pain, sob, abdominal pain, nausea, vomiting, diarrhea, constipation, fevers, or chills. Reports some mild SOB and cough. Adult diet Regular 24HR INTAKE/OUTPUT: Intake/Output Summary (Last 24 hours) at 06/14/2024 1246 Last data filed at 06/14/2024 0445 Gross per 24 hour Intake 1305.83 ml Output -- Net 1305.83 ml Past Medical History: No past medical history on file. LABS: CBC: Recent Labs 06/13/24 1849 06/14/24 0348 WBC 9.5 11.4* RBC 2.98* 3.42* HGB 9.3* 10.3* HCT 27.5* 32.5* MCV 92.3 95.0 RDW 13.0 12.7 PLT 191 197 BMP: Recent Labs 06/13/242 06/14/24 0048 NA 133* 133* K 3.9 3.4* CL 95* 98 CO2 36* 32* BUN 22* 21* CREATININE 0.67 0.70 GLUCOSE 180* 191* CALCIUM 8.9 8.7 ANIONGAP 2* 4 LIVER PROFILE: Recent Labs 06/13/24 1722 06/14/24 0048 AST 36 42 ALT 12 12 BILITOT 2.2* 1.7* ALKPHOS 146* 141* PROT 6.8 6.1* PT/INR: Recent Labs 06/13/241721 PROTIME 13.5* INR 1.2* CARDIAC ENZYMES: Recent Labs 06/13/242 06/13/24202606/14/24 0048 TROPONINI <0.012 0.013 <0.012 Procalcitonin: Lab Results Component Value Date PROCAL 0.61 (H) 06/14/2024 COVID-19 PCR: No results for input(s): "COVID19" in the last 72 hours. Objective: Vitals: BP 109/54 (BP Location: Right arm, Patient Position: Lying) Pulse 69 Temp 36.3 C (97.3 F) (Temporal) Resp 16 Ht 5' 5" (1.651 m) Wt 150 lb (68 kg) SpO2 98% BMI 24.96 kg/m Pulse Ox: SpO2 Av.8 % Min: 92 % Max: 99 % Supplemental O2: O2 Flow Rate (L/min): 4 L/min General appearance: No apparent distress, appears stated age and cooperative with exam, elderly female in NAD HEENT: left facial bruising Respiratory: diminished BL, no crackles audible. Cardiovascular: Regular rate and rhythm with no murmur Abdomen: Soft, non-tender, non-distended Skin: Skin color, texture, turgor normal. No rashes or lesions. Distal pulses intact in BL LE, no edema in BL LE Neurologic: Neurovascularly intact without any focal sensory/motor deficits. Cranial nerves: II-XII intact, grossly non-focal. Medications: sodium chloride, 150 mL/hr, Last Rate: 150 mL/hr (06/14/24 1056) atorvastatin, 40 mg, Oral, Daily buPROPion XL, 150 mg, Oral, Daily dexAMETHasone, 6 mg, Oral, Daily enoxaparin, 40 mg, SubCUTAneous, Daily insulin glargine, 25 Units, SubCUTAneous, Daily insulin lispro, 0-6 Units, SubCUTAneous, TID WC And insulin lispro, 0-6 Units, SubCUTAneous, Nightly levothyroxine, 175 mcg, Oral, qAM AC piperacillin-tazobactam, 3,375 mg, IntraVENous, q8h remdesivir (Veklury) 100 mg in sodium chloride 0.9 % 250 mL IVPB, 100 mg, IntraVENous, q24h venlafaxine XR, 37.5 mg, Oral, Daily Assessment Acute hypoxic respiratory failure COVID 19 PNA Remdesivir and decadron Supplemental O2, wean as tolerated Symptomatic management PRN Patient is not on supplemental O2 at baseline CXR pending. Bacteremia, Ecoli UTI Acute cystitis Suspected right pyelonephritis Simple sepsis Sensitivities pending UA and UC pending Broad coverage abx Left facial bruising Mechanical fall suspected Patient without fall reported from SNF CT of head negative Monitor status DM type 2 SSI coverage Basal insulin resumed Monitor BG in setting of steroids as above Hypothyroidism Levothyroxine resumed Hx of CVA Statin, ASA and plavix CT of head negative Medical Decision Making 06/14/24: patient with increased cough and headache. She is found to have simple sepsis and positive BC for e coli, imaging showing suspected right pyelonephritis and suspected cystitis as well. UA and culture pending. She is also COVID 19 positive with hypoxia. She is being treated with broad spectrum abx, decadron, remdesivir. Wean O2 as tolerated. CXR not obtained in the ED? Imaging pending. She has some bruising on left face, no reported fall? CT of head negative. Home medications reviewed and resumed as indicated. CBC and BMP in the AM. -am labs, replace lytes prn -increase activity -resume home medications as indicated -DVT prophylaxis: [x] Lovenox [] Heparin [] SCDs [x] Encourage ambulation [] Already on Anticoagulation Anticipated Discharge - Date - 06/16 vs 06/17? - Location - Home vs SNF - Pending the following - improvement in respiratory status Toxic drug monitoring/narrow therapeutic index drug monitoring : # Drug name : # Route administered : # Method of monitoring : Extended Emergency Contact Information Primary Emergency Contact: Elsi Rooney Mobile Relation: [id number] Elia Celis DO Division of Hospitalist Medicine Inpatient Medical Services/[facility] PAGER: Epic chat documented in this encounter [facility] 06-20-2024 Note Formatting of this n ote might be different from the original. Awaiting [employer] auth to return to [facility]. TCC will continue to follow. The time of this note does not reflect the actual time patient was seen and assessed but instead the time of this documentation. [facility] 06-20-2024 Note Formatting of this n ote might be different from the original. Awaiting [employer] auth to return to [facility]. TCC will continue to follow. The time of this note does not reflect the actual time patient was seen and assessed but instead the time of this documentation. [facility] 06-19-2024 Note Hospitalist Progress Note 06/19/2024 [phone]: Please page nd ([phone]) for patient care issues. [phone]: Please page [facility] night Hospitalist for any issues. Subjective: Admit Date: 06/13/2024 PCP: No primary care provider on file. Room#: B4466/B4-503 A Interval History: patient admitted for sepsis in setting of bacteremia and COVID 19. No overnight issues. Having her breakfast this morning, pleasantly confused no signs of agitation or anxiety. Adult diet Regular; 5 carb choices (75 gm/meal) 24HR INTAKE/OUTPUT: Intake/Output Summary (Last 24 hours) at 06/19/2024 1339 Last data filed at 06/19/2024 1102 Gross per 24 hour Intake 1000 ml Output -- Net 1000 ml Past Medical History: History reviewed. No pertinent past medical history. LABS: CBC: Recent Labs 06/17/242 06/18/2414606/19/24108 WBC 6.1 6.2 7.7 RBC 2.98* 3.02* 3.07* HGB 8.9* 9.1* 9.1* HCT 27.6* 28.4* 29.1* MCV 92.6 94.0 94.8 RDW 13.2 13.4 13.4 PLT 228 241 304 BMP: Recent Labs 06/17/2440106/18/2414606/19/24108 NA 132* 133* 134* K 3.6 3.6 4.3 CL 105 107 107 CO2 25 25 25 BUN 24* 18* 15 CREATININE 0.83 0.63 0.72 GLUCOSE 206* 190* 128* CALCIUM 7.7* 7.8* 8.1* ANIONGAP 2* 2* 2* LIVER PROFILE: No results for input(s): "AST", "ALT", "BILITOT", "ALKPHOS", "PROT" in the last 72 hours. No lab exists for component: LABALBU PT/INR: No results for input(s): "PROTIME", "INR" in the last 72 hours. CARDIAC ENZYMES: No results for input(s): "TROPONINI" in the last 72 hours. Procalcitonin: No results found for: "PROCAL" COVID-19 PCR: No results for input(s): "COVID19" in the last 72 hours. Objective: Vitals: BP 117/94 Pulse 76 Temp 36.5 ?C (97.7 ?F) (Temporal) Resp 18 Ht 5' 5" (1.651 m) Wt 228 lb 14.4 oz (104 kg) SpO2 100% BMI 38.09 kg/m? Pulse Ox: SpO2 Av.5 % Min: 93 % Max: 100 % Supplemental O2: O2 Flow Rate (L/min): 2 L/min General appearance: No apparent distress, appears stated age and cooperative with exam, elderly female in NAD HEENT: left facial bruising Respiratory: diminished BL, CTA otherwise. Cardiovascular: Regular rate and rhythm with no murmur Abdomen: Soft, non-tender, non-distended Skin: Skin color, texture, turgor normal. No rashes or lesions. Distal pulses intact in BL LE, no edema in BL LE Neurologic: Neurovascularly intact without any focal sensory/motor deficits. Cranial nerves: II-XII intact, grossly non-focal. Medications: sodium chloride, 150 mL/hr, Last Rate: 150 mL/hr (06/19/24 1102) amoxicillin, 500 mg, Oral, 3 times per day atorvastatin, 40 mg, Oral, Daily buPROPion XL, 150 mg, Oral, Daily dexAMETHasone, 6 mg, Oral, Daily enoxaparin, 40 mg, SubCUTAneous, Daily insulin glargine, 30 Units, SubCUTAneous, Daily insulin lispro, 0-18 Units, SubCUTAneous, TID WC And insulin lispro, 0-18 Units, SubCUTAneous, Nightly levothyroxine, 175 mcg, Oral, qAM AC venlafaxine XR, 37.5 mg, Oral, Daily Assessment Acute hypoxic respiratory failure COVID 19 PNA Remdesivir and decadron Supplemental O2, wean as tolerated Symptomatic management PRN Patient is not on supplemental O2 at baseline CXR reviewed negative for PNA Abx changed to amoxicillin through 06/26 Bacteremia, Ecoli Discussed with ID abx stewardship committee, changed to amoxicillin through 06/26/24. UTI Acute cystitis Suspected right pyelonephritis Simple sepsis Sensitivities pending UA and UC reviewed Broad coverage abx Left facial bruising Mechanical fall suspected Patient without fall reported from SNF CT of head negative Monitor status DM type 2 SSI coverage Basal insulin resumed Monitor BG in setting of steroids as above Hypothyroidism Levothyroxine resumed Hx of CVA Statin, ASA and plavix CT of head negative Hyponatremia Urine studies and serum osm pending BMP in the AM. Medical Decision Making 06/14/24: patient with increased cough and headache. She is found to have simple sepsis and positive BC for e coli, imaging showing suspected right pyelonephritis and suspected cystitis as well. UA and culture pending. She is also COVID 19 positive with hypoxia. She is being treated with broad spectrum abx, decadron, remdesivir. Wean O2 as tolerated. CXR not obtained in the ED? Imaging pending. She has some bruising on left face, no reported fall? CT of head negative. Home medications reviewed and resumed as indicated. CBC and BMP in the AM. 06/15/24: patient weaned to RA, stable respiratory status, continue to wait for UA and culture pending. BC remain positive, sensitivities pending. Continue broad coverage abx. CT head negative, CXR negative as well for PNA. Sodium dropped to 128 today, urine studies pending, serum osm pending. CBC and BMP in the AM. PT/OT eval and treat, recommending SNF on discharge. 06/16/24: patient with increased cough and headache. She is found to have simple sepsis and p (more content not included)... [facility] 06-18-2024 Note Hospitalist Progress Note 06/18/2024 [phone]: Please page me ([phone]) for patient care issues. [phone]: Please page [facility] Hospitalist for any issues. Subjective: Admit Date: 06/13/2024 PCP: No primary care provider on file. Room#: [facility] Interval History: patient admitted for sepsis in setting of bacteremia and COVID 19. No overnight issues. Having her breakfast this morning, pleasantly confused no signs of agitation or anxiety. Adult diet Regular; 5 carb choices (75 gm/meal) 24HR INTAKE/OUTPUT: No intake or output data in the 24 hours ending 06/18/24 1303 Past Medical History: History reviewed. No pertinent past medical history. LABS: CBC: Recent Labs 06/16/2462506/17/24 0402 06/18/24 0147 WBC 7.7 6.1 6.2 RBC 2.98* 2.98* 3.02* HGB 9.0* 8.9* 9.1* HCT 27.3* 27.6* 28.4* MCV 91.6 92.6 94.0 RDW 12.7 13.2 13.4 PLT 217 228 241 BMP: Recent Labs 06/16/2462506/17/24 0402 06/18/24 0147 NA 132* 132* 133* K 3.5 3.6 3.6 CL 103 105 107 CO2 24 25 25 BUN 24* 24* 18* CREATININE 0.70 0.83 0.63 GLUCOSE 246* 206* 190* CALCIUM 8.0* 7.7* 7.8* ANIONGAP 5 2* 2* LIVER PROFILE: No results for input(s): "AST", "ALT", "BILITOT", "ALKPHOS", "PROT" in the last 72 hours. No lab exists for component: LABALBU PT/INR: No results for input(s): "PROTIME", "INR" in the last 72 hours. CARDIAC ENZYMES: No results for input(s): "TROPONINI" in the last 72 hours. Procalcitonin: No results found for: "PROCAL" COVID-19 PCR: No results for input(s): "COVID19" in the last 72 hours. Objective: Vitals: BP 133/60 (BP Location: Right arm, Patient Position: Lying) Pulse 67 Temp 36.1 ?C (96.9 ?F) (Temporal) Resp 18 Ht 5' 5" (1.651 m) Wt 150 lb (68 kg) SpO2 100% BMI 24.96 kg/m? Pulse Ox: SpO2 Av.5 % Min: 97 % Max: 100 % Supplemental O2: O2 Flow Rate (L/min): 2 L/min General appearance: No apparent distress, appears stated age and cooperative with exam, elderly female in NAD HEENT: left facial bruising Respiratory: diminished BL, CTA otherwise. Cardiovascular: Regular rate and rhythm with no murmur Abdomen: Soft, non-tender, non-distended Skin: Skin color, texture, turgor normal. No rashes or lesions. Distal pulses intact in BL LE, no edema in BL LE Neurologic: Neurovascularly intact without any focal sensory/motor deficits. Cranial nerves: II-XII intact, grossly non-focal. Medications: sodium chloride, 150 mL/hr, Last Rate: 150 mL/hr (06/18/24 1120) amoxicillin, 500 mg, Oral, 3 times per day atorvastatin, 40 mg, Oral, Daily buPROPion XL, 150 mg, Oral, Daily dexAMETHasone, 6 mg, Oral, Daily enoxaparin, 40 mg, SubCUTAneous, Daily insulin glargine, 30 Units, SubCUTAneous, Daily insulin lispro, 0-18 Units, SubCUTAneous, TID WC And insulin lispro, 0-18 Units, SubCUTAneous, Nightly levothyroxine, 175 mcg, Oral, qAM AC venlafaxine XR, 37.5 mg, Oral, Daily Assessment Acute hypoxic respiratory failure COVID 19 PNA Remdesivir and decadron Supplemental O2, wean as tolerated Symptomatic management PRN Patient is not on supplemental O2 at baseline CXR reviewed negative for PNA Abx changed to amoxicillin through 06/26 Bacteremia, Ecoli Discussed with ID abx stewardship committee, changed to amoxicillin through 06/26/24. UTI Acute cystitis Suspected right pyelonephritis Simple sepsis Sensitivities pending UA and UC reviewed Broad coverage abx Left facial bruising Mechanical fall suspected Patient without fall reported from SNF CT of head negative Monitor status DM type 2 SSI coverage Basal insulin resumed Monitor BG in setting of steroids as above Hypothyroidism Levothyroxine resumed Hx of CVA Statin, ASA and plavix CT of head negative Hyponatremia Urine studies and serum osm pending BMP in the AM. Medical Decision Making 06/14/24: patient with increased cough and headache. She is found to have simple sepsis and positive BC for e coli, imaging showing suspected right pyelonephritis and suspected cystitis as well. UA and culture pending. She is also COVID 19 positive with hypoxia. She is being treated with broad spectrum abx, decadron, remdesivir. Wean O2 as tolerated. CXR not obtained in the ED? Imaging pending. She has some bruising on left face, no reported fall? CT of head negative. Home medications reviewed and resumed as indicated. CBC and BMP in the AM. 06/15/24: patient weaned to RA, stable respiratory status, continue to wait for UA and culture pending. BC remain positive, sensitivities pending. Continue broad coverage abx. CT head negative, CXR negative as well for PNA. Sodium dropped to 128 today, urine studies pending, serum osm pending. CBC and BMP in the AM. PT/OT eval and treat, recommending SNF on discharge. 06/16/24: patient with increased cough and headache. She is found to have simple sepsis and positive BC for e coli, imaging showing suspected rig (more content not included)... [facility] 06-18-2024 Note Formatting of this n ote might be different from the original. Care Managment Initial Assessment Date: 06/18/2024 Patient Name: Marcia Rooney : 1945 Patient Information Source of Information: Patient Hand Candy Cutter Name/Contact Information: Chiquis elvira [place]/ MARC Calzada Cognition/Language: Confused at baseline Permission given to speak with patient cash application representative/caregiver as indicated: Yes Confirmation of Payer with patient/family: Yes Payer Name: Jeanne VILLANUEVA Condon: No Confirmation of Primary Care Physician: Confirmed PCP Name: [facility]'s Editorial Project Manager Seen in last 2 years?: Yes Primary Caregiver: ([facility] staff) If assistance needed, confirmed caregiver ready, willing and able to care for patient at discharge: Yes Confirmed with: Jamaal Connolly Living Arrangements Current Residence: Number of Floors Number of Entry Steps: Bed/Bath Levels: Facility: Nursing Facility [facility] Plan to Return: Yes Lives with: (SNF staff and residents) Support Systems: Children, Family members, Friends/neighbors, Comments (Other) (SNF staff and residents) Activities of Daily Living Ambulation: Assistance (Uses WW) Bathing/Dressing: Assistance Elimination/Continence/Toiletin g: Assistance Feeding: Independent Who Assists with Activities of Daily Living: Jamaal chapa Instrumental Activities of Daily Living Prescription Coverage: Yes Pharmacy Used: [facility] Medication Management: ([facility] nurses manage meds) Transportation/Shopping: Assistance Provider Transportation/Shopping Assistance Provider [facility]: [facility] Transportation Mode: Senior/disability transport service Needs Assistance with Transportation at Discharge: Yes (Will need CONSTRUCTION ENGINEER to set up return transport) Meal Preparation: Assistance Provider Meal Prep Assistance Provider Name: [facility] staff Laundry/Cleaning: Assistance Provider Laundry/Cleaning Assistance Provider Name: [facility] staff Finances/Bill Paying: Assistance Provider Finances/Bill Payer Assistance Provider Name: Lexi Calzada Communication: Independent Types of Care Services/Equipment Utilized Care Services: Dialysis Type: Durable Medical Equipment: Walker, Raised Toilet Seat, Shower Seat, Other (Comment) (Grab bars) Patient's Goal/Discharge Plan Patient expects to be discharged to: Return to SNF Discharge Planning Actions: Continue to follow, Snf Facility referral indicated [place] of choice: [place] of choice discussed, Choice list provided Patient's Choice Rights and [employer] and Collaborative Relationships Disclosed as Indicated for Post-Acute Care: Yes Interdisciplinary Team Engagement: PT/OT, Disease Management Program Social Work Referral for: Additional Information: Pt here from [facility] SNF for Covid. Today is last day of and Jun, to start insurance auth. BIG DATA DEVELOPER [facility] in [facility] to initiate [employer] pre-cert. Message left again for MARC Calzada. Will need return transport set up. TCC will continue to follow. Vero Molina RN [facility] 06-18-2024 Note Formatting of this n ote might be different from the original. Care Managment Initial Assessment Date: 06/18/2024 Patient Name: Marcia Rooney : 1945 Patient Information Source of Information: Patient Hand Candy Cutter Name/Contact Information: Chiquis from [place]/ MARC Mckeonissa Cognition/Language: Confused at baseline Permission given to speak with patient cash application representative/caregiver as indicated: Yes Confirmation of Payer with patient/family: Yes Payer Name: Jeanne MCR Condon: No Confirmation of Primary Care Physician: Confirmed [facility]ial Project Manager Seen in last 2 years?: Yes Primary Caregiver: ([facility] staff) If assistance needed, confirmed caregiver ready, willing and able to care for patient at discharge: Yes Confirmed with: Jamaal Connolly Living Arrangements Current Residence: Number of Floors Number of Entry Steps: Bed/Bath Levels: Facility: Nursing Facility Skilled Facility Name: [facility] Plan to Return: Yes Lives with: (SNF staff and residents) Support Systems: Children, Family members, Friends/neighbors, Comments (Other) (SNF staff and residents) Activities of Daily Living Ambulation: Assistance (Uses WW) Bathing/Dressing: Assistance Elimination/Continence/Toiletin g: Assistance Feeding: Independent Who Assists with Activities of Daily Living: Jamaal chapa Instrumental Activities of Daily Living Prescription Coverage: Yes Pharmacy Used: [facility] Medication Management: ([facility] nurses manage meds) Transportation/Shopping: Assistance Provider Transportation/Shopping Assistance Provider Name: [facility] Transportation Mode: Senior/disability transport service Needs Assistance with Transportation at Discharge: Yes (Will need CONSTRUCTION ENGINEER to set up return transport) Meal Preparation: Assistance Provider Meal Prep Assistance Provider Name: [facility] staff Laundry/Cleaning: Assistance Provider Laundry/Cleaning Assistance Provider Name: [facility] staff Finances/Bill Paying: Assistance Provider Finances/Bill Payer Assistance Provider Name: Son and MARC Calzada Communication: Independent Types of Care Services/Equipment Utilized Care Services: Dialysis Type: Durable Medical Equipment: Walker, Raised Toilet Seat, Shower Seat, Other (Comment) (Grab bars) Patient's Goal/Discharge Plan Patient expects to be discharged to: Return to SNF Discharge Planning Actions: Continue to follow, Snf Facility referral indicated [place] of choice: [place] of choice discussed, Choice list provided Patient's Choice Rights and [employer] and Collaborative Relationships Disclosed as Indicated for Post-Acute Care: Yes Interdisciplinary Team Engagement: PT/OT, Disease Management Program Social Work Referral for: Additional Information: Pt here from [facility] for Covid. Today is last day of and Jun, to start insurance auth. BIG DATA DEVELOPER tasked in [facility] to initiate [employer] pre-cert. Message left again for MARC Calzada. Will need return transport set up. TCC will continue to follow. Vero Molina RN [facility] 06-18-2024 Nurse Note Wound Care consulted for Pressure Injury Prevention. Pt's Giuseppe score= 14 on 06/17 Pt's pressure points assessed. Pt's Heels, Buttocks/coccyx, Back, Elbows, Occiput and ears all intact. Pt incontinent of urine. Pads changed, incontinence care provided, barrier ointment applied. Prevention Measures in place, including: [place] sheet (obtained) with pillows/wedges, Foam heel protectors (obtained and applied), Heels elevated off bed on pillows, Sacral foam (obtained, at bedside), Zinc/Moisture Barrier ointment (obtained), Waffle chair cushion (obtained for pt). Skin Care precaution order set in place. Dietitian consult in place. PT/OT consult in place. Will continue to follow pt. Please secure chat for any questions or concerns. Mady Ceron RN [facility] 06-17-2024 Note Hospitalist Progress Note 06/17/2024 [phone]: Please page me ([phone]) for patient care issues. [phone]: Please page [facility] night Hospitalist for any issues. Subjective: Admit Date: 06/13/2024 PCP: No primary care provider on file. Room#: B4-466/B4-466 A Interval History: patient admitted for sepsis in setting of bacteremia and COVID 19. No overnight issues. Still confused, pleasant no signs of agitation or anxiety. Adult diet Regular; 5 carb choices (75 gm/meal) 24HR INTAKE/OUTPUT: Intake/Output Summary (Last 24 hours) at 06/17/2024 1358 Last data filed at 06/17/2024 0807 Gross per 24 hour Intake 100 ml Output -- Net 100 ml Past Medical History: History reviewed. No pertinent past medical history. LABS: CBC: Recent Labs 06/15/24 0322 06/16/24 0626 06/17/24 0402 WBC 10.7 7.7 6.1 RBC 2.93* 2.98* 2.98* HGB 8.9* 9.0* 8.9* HCT 27.2* 27.3* 27.6* MCV 92.8 91.6 92.6 RDW 12.7 12.7 13.2 PLT 199 217 228 BMP: Recent Labs 06/15/24 0322 06/16/24 0626 06/17/24 0402 NA 128* 132* 132* K 3.6 3.5 3.6 CL 96* 103 105 CO2 28 24 25 BUN 29* 24* 24* CREATININE 0.82 0.70 0.83 GLUCOSE 290* 246* 206* CALCIUM 8.3* 8.0* 7.7* ANIONGAP 4 5 2* LIVER PROFILE: No results for input(s): "AST", "ALT", "BILITOT", "ALKPHOS", "PROT" in the last 72 hours. No lab exists for component: LABALBU PT/INR: No results for input(s): "PROTIME", "INR" in the last 72 hours. CARDIAC ENZYMES: No results for input(s): "TROPONINI" in the last 72 hours. Procalcitonin: No results found for: "PROCAL" COVID-19 PCR: No results for input(s): "COVID19" in the last 72 hours. Objective: Vitals: BP 138/66 (BP Location: Right arm, Patient Position: Lying) Pulse 69 Temp 36.4 ?C (97.5 ?F) (Temporal) Resp 22 Ht 5' 5" (1.651 m) Wt 150 lb (68 kg) SpO2 97% BMI 24.96 kg/m? Pulse Ox: SpO2 Av % Min: 97 % Max: 100 % Supplemental O2: O2 Flow Rate (L/min): 2 L/min General appearance: No apparent distress, appears stated age and cooperative with exam, elderly female in NAD HEENT: left facial bruising Respiratory: diminished BL, CTA otherwise. Cardiovascular: Regular rate and rhythm with no murmur Abdomen: Soft, non-tender, non-distended Skin: Skin color, texture, turgor normal. No rashes or lesions. Distal pulses intact in BL LE, no edema in BL LE Neurologic: Neurovascularly intact without any focal sensory/motor deficits. Cranial nerves: II-XII intact, grossly non-focal. Medications: sodium chloride, 150 mL/hr, Last Rate: 150 mL/hr (06/17/24 0941) amoxicillin, 500 mg, Oral, 3 times per day atorvastatin, 40 mg, Oral, Daily buPROPion XL, 150 mg, Oral, Daily dexAMETHasone, 6 mg, Oral, Daily enoxaparin, 40 mg, SubCUTAneous, Daily insulin glargine, 30 Units, SubCUTAneous, Daily insulin lispro, 0-18 Units, SubCUTAneous, TID WC And insulin lispro, 0-18 Units, SubCUTAneous, Nightly levothyroxine, 175 mcg, Oral, qAM AC remdesivir (Veklury) 100 mg in sodium chloride 0.9 % 250 mL IVPB, 100 mg, IntraVENous, q24h venlafaxine XR, 37.5 mg, Oral, Daily Assessment Acute hypoxic respiratory failure COVID 19 PNA Remdesivir and decadron Supplemental O2, wean as tolerated Symptomatic management PRN Patient is not on supplemental O2 at baseline CXR reviewed negative for PNA Abx changed to amoxicillin through 06/26 Bacteremia, Ecoli Discussed with ID abx stewardship committee, changed to amoxicillin through 06/26/24. UTI Acute cystitis Suspected right pyelonephritis Simple sepsis Sensitivities pending UA and UC reviewed Broad coverage abx Left facial bruising Mechanical fall suspected Patient without fall reported from SNF CT of head negative Monitor status DM type 2 SSI coverage Basal insulin resumed Monitor BG in setting of steroids as above Hypothyroidism Levothyroxine resumed Hx of CVA Statin, ASA and plavix CT of head negative Hyponatremia Urine studies and serum osm pending BMP in the AM. Medical Decision Making 06/14/24: patient with increased cough and headache. She is found to have simple sepsis and positive BC for e coli, imaging showing suspected right pyelonephritis and suspected cystitis as well. UA and culture pending. She is also COVID 19 positive with hypoxia. She is being treated with broad spectrum abx, decadron, remdesivir. Wean O2 as tolerated. CXR not obtained in the ED? Imaging pending. She has some bruising on left face, no reported fall? CT of head negative. Home medications reviewed and resumed as indicated. CBC and BMP in the AM. 06/15/24: patient weaned to RA, stable respiratory status, continue to wait for UA and culture pending. BC remain positive, sensitivities pending. Continue broad coverage abx. CT head negative, CXR negative as well for PNA. Sodium dropped to 128 today, urine studies pending, serum osm pending. CBC and BMP in the AM. PT/OT eval and treat, recommending SNF on discha (more content not included)... [facility] 06-17-2024 Note Formatting of this n ote might be different from the original. Referral placed to return back to [facility] via [facility] per [facility] request. Await review and response regarding ability to accept. TCC notified. [facility] 06-17-2024 Note Formatting of this n ote might be different from the original. Referral placed to [facility] request. Await review and response regarding ability to accept. TCC notified. [facility] 06-17-2024 Note Referral placed to faiza knight back to [facility] via [facility] per T[facility] request. Await review and response regarding ability to accept. TCC notified. [facility] 06-16-2024 Note Hospitalist Progress Note 06/16/2024 [phone]: Please page nd ([phone]) for patient care issues. [phone]: Please page [facility] Hospitalist for any issues. Subjective: Admit Date: 06/13/2024 PCP: No primary care provider on file. Room#: [facility] A Interval History: patient admitted for sepsis in setting of bacteremia and COVID 19. No overnight issues. Denies chest pain, sob, abdominal pain, nausea, vomiting, diarrhea, constipation, fevers, or chills. SOB resolved. Adult diet Regular; 5 carb choices (75 gm/meal) 24HR INTAKE/OUTPUT: No intake or output data in the 24 hours ending 06/16/24 1301 Past Medical History: No past medical history on file. LABS: CBC: Recent Labs 06/14/24 0348 06/15/24 0322 06/16/24 0626 WBC 11.4* 10.7 7.7 RBC 3.42* 2.93* 2.98* HGB 10.3* 8.9* 9.0* HCT 32.5* 27.2* 27.3* MCV 95.0 92.8 91.6 RDW 12.7 12.7 12.7 PLT 197 199 217 BMP: Recent Labs 06/14/24 0048 06/14/24 1733 06/15/24 0322 06/16/24 0626 NA 133* -- 128* 132* K 3.4* -- 3.6 3.5 CL 98 -- 96* 103 CO2 32* -- 28 24 BUN 21* -- 29* 24* CREATININE 0.70 -- 0.82 0.70 GLUCOSE 191* 510* 290* 246* CALCIUM 8.7 -- 8.3* 8.0* ANIONGAP 4 -- 4 5 LIVER PROFILE: Recent Labs 06/13/242 06/14/24 0048 AST 36 42 ALT 12 12 BILITOT 2.2* 1.7* ALKPHOS 146* 141* PROT 6.8 6.1* PT/INR: Recent Labs 06/13/241721 PROTIME 13.5* INR 1.2* CARDIAC ENZYMES: Recent Labs 06/13/24172106/13/24202606/14/24 0048 TROPONINI <0.012 0.013 <0.012 Procalcitonin: Lab Results Component Value Date PROCAL 0.61 (H) 06/14/2024 COVID-19 PCR: No results for input(s): "COVID19" in the last 72 hours. Objective: Vitals: BP 114/74 (BP Location: Left arm, Patient Position: Lying) Pulse 95 Temp 36 ?C (96.8 ?F) (Temporal) Resp 18 Ht 5' 5" (1.651 m) Wt 150 lb (68 kg) SpO2 99% BMI 24.96 kg/m? Pulse Ox: SpO2 Av.5 % Min: 96 % Max: 99 % Supplemental O2: O2 Flow Rate (L/min): 4 L/min General appearance: No apparent distress, appears stated age and cooperative with exam, elderly female in NAD HEENT: left facial bruising Respiratory: diminished BL, CTA otherwise. Cardiovascular: Regular rate and rhythm with no murmur Abdomen: Soft, non-tender, non-distended Skin: Skin color, texture, turgor normal. No rashes or lesions. Distal pulses intact in BL LE, no edema in BL LE Neurologic: Neurovascularly intact without any focal sensory/motor deficits. Cranial nerves: II-XII intact, grossly non-focal. Medications: sodium chloride, 150 mL/hr, Last Rate: 150 mL/hr (06/16/24 0613) atorvastatin, 40 mg, Oral, Daily buPROPion XL, 150 mg, Oral, Daily dexAMETHasone, 6 mg, Oral, Daily enoxaparin, 40 mg, SubCUTAneous, Daily insulin glargine, 30 Units, SubCUTAneous, Daily insulin lispro, 0-18 Units, SubCUTAneous, TID WC And insulin lispro, 0-18 Units, SubCUTAneous, Nightly levothyroxine, 175 mcg, Oral, qAM AC piperacillin-tazobactam, 3,375 mg, IntraVENous, q8h remdesivir (Veklury) 100 mg in sodium chloride 0.9 % 250 mL IVPB, 100 mg, IntraVENous, q24h venlafaxine XR, 37.5 mg, Oral, Daily Assessment Acute hypoxic respiratory failure COVID 19 PNA Remdesivir and decadron Supplemental O2, wean as tolerated Symptomatic management PRN Patient is not on supplemental O2 at baseline CXR reviewed negative for PNA Abx changed to amoxicillin through 06/26 Bacteremia, Ecoli Discussed with ID abx stewardship committee, changed to amoxicillin through 06/26/24. UTI Acute cystitis Suspected right pyelonephritis Simple sepsis Sensitivities pending UA and UC reviewed Broad coverage abx Left facial bruising Mechanical fall suspected Patient without fall reported from SNF CT of head negative Monitor status DM type 2 SSI coverage Basal insulin resumed Monitor BG in setting of steroids as above Hypothyroidism Levothyroxine resumed Hx of CVA Statin, ASA and plavix CT of head negative Hyponatremia Urine studies and serum osm pending BMP in the AM. Medical Decision Making 06/14/24: patient with increased cough and headache. She is found to have simple sepsis and positive BC for e coli, imaging showing suspected right pyelonephritis and suspected cystitis as well. UA and culture pending. She is also COVID 19 positive with hypoxia. She is being treated with broad spectrum abx, decadron, remdesivir. Wean O2 as tolerated. CXR not obtained in the ED? Imaging pending. She has some bruising on left face, no reported fall? CT of head negative. Home medications reviewed and resumed as indicated. CBC and BMP in the AM. 06/15/24: patient weaned to RA, stable respiratory status, continue to wait for UA and culture pending. BC remain positive, sensitivities pending. Continue broad coverage abx. CT head negative, CXR negative as well for PNA. Sodium dropped to 128 today, urine studies pending, serum osm pending. CBC and BMP in the A (more content not included)... [facility] 06-16-2024 Note Formatting of this n ote might be different from the original. S/W, self pay Per [facility] patient SNF notes the patient has [employer] Medicare.I did message Financial Counselor Sharon Elmore with this information. [facility] 06-16-2024 Note Formatting of this n ote might be different from the original. S/W, self pay Per [facility] patient SNF notes the patient has [employer] Medicare.I did message Financial Counselor Sharon Elmore with this information. [facility] 06-15-2024 Note Formatting of this n ote might be different from the original. Case Management Daily Note/Update Phoned patient's [id number], Elsi Rooney, at [phone] and left HIPAA compliant requesting call back. Wish to complete IA and discuss discharge planning. [facility] 06-15-2024 Note Formatting of this n ote might be different from the original. Case Management Daily Note/Update Phoned patient's [id number], Elsi Rooney, at [phone] and left HIPAA compliant requesting call back. Wish to complete IA and discuss discharge planning. [facility] 06-15-2024 Note OCCUPATIONAL THERAPY [facility] Initial Evaluation Name/MRN: Marcia Rooney ([id number]) Evaluation Date: 06/15/2024 Date of : 1945 Admission Date: 06/13/2024 4:36 PM Age: 78 y.o. Room[facility]: [facility] A Discharge Recommendation: Snf Facility Assessment IMPRESSION: Pt admitted to ED on 06/13 with c/o nausea and vomiting. H/o Alzheimer's. Prior to admission, pt lived at SNF and performed ADLs and mobility indep per pt, although pt is a poor historian. Upon eval, pt required SBA for bed mobility, min assist for side stepping with FWW, and min assist and cues for ADLs. Pt demonstrates confusion. Recommend return to SNF upon DC. Pt would benefit from skilled OT services in order to increase safety and independence in occupational tasks. Admitting Diagnosis: COVID Performance Deficits /Impairments: Increased Pain, Decreased Functional Mobility, Decreased ADL status, Decreased Strength, Decreased Safety Awareness, Decreased Endurance, Decreased Balance, and Decreased Cognition Prognosis: Good Decision Making: Medium Complexity Subjective OK to see pt per nurse. Pt lying in bed upon therapist arrival. Agreeable to evaluation. Multiple IV Lines Pain: 0-10 pain scale: did not state Location: [place] Past Medical History: No past medical history on file. Past Surgical History: No past surgical history on file. Admission Diagnosis: Patient Active Problem List Diagnosis Date Noted COVID 06/13/2024 Medical Precautions: Droplet Plus Proper PPE donned/doffed in accordance with facility standards. Fall Risk: Jacinto Fall Risk Score: 45 (High Risk) Precautions/Restrictions: Fall Precautions Family/Caregiver Present: none Overall Cognitive Status: Exceptions - Memory: decreased recall of biographical information, decreased recall of recent events, decreased short term memory, and decreased fdc memory - Safety judgement: decreased awareness of need for assistance and decreased awareness of need for safety - Problem solving: assistance required to generate solutions, assistance required to implement solutions, assistance required to identify errors made, assistance required to correct errors made, and decreased awareness of errors - Insights: decreased awareness of deficits - Sequencing: requires cues for some Overall Orientation Status: Oriented to Time, Oriented to Person, Disoriented to Situation, and Disoriented to Place Social/Functional History Patient admitted from SNF. Assistive Equipment: front wheeled walker Prior Level of Function Prior Level of ADL Function: Required Assist Prior Level of Mobility: Required Assist; Device: Front wheeled walker Prior Level of Transfers: Required Assist Objective ADLs Sitting EOB, doff/don socks with SBA. Anticipate pt would required min assist overall for LB ADL's for standing balance Upper Extremity Assessment AROM: WFL PROM: WFL Noted R 4th digit with flexion contracture Strength: Exceptions: generalized weakness Vision: wears glasses at all times and and are NOT being used during the eval and blind L eye Hearing: normal Bed Mobility Supine to sit: SBA Sit to supine: SBA Scooting: SBA HOB raised and use of bed rails. No reports of dizziness with positional changes. Cues for sequencing and problem solving. Transfers/Functional Mobility Sit to stand: Min Assist Stand to sit: Min Assist Stand step: Min Assist Sitting balance: SBA Standing balance: Min Assist Device(s) used: Front wheeled walker Sitting EOB to standing at FWW, min assist and cues for hand placement. Side step x 4 with FWW, min assist. Standing at FWW to sitting EOB, min assist. Hand dominance: Right AM-PAC AM-PAC Inpatient Daily Activity Raw Score: 19 ADL Inpatient CMS G-Code Modifier: CK Plan Pt would benefit from skilled acute OT services to address Strengthening, Balance Training, Self-Care/ADL Training, Functional Mobility Training, Endurance Training, Safety Education and Training, Cognitive Reorientation, and Patient/Caregiver Training. Frequency: 6 visits during current hospital admission or until additional recommendations are made Barriers: Pain, Impaired balance, Decreased endurance, Limited safety awareness, Confusion, Cognitive deficit, and Long standing deficits Safety/Education Safety Safety Devices in place: All fall risk precautions in place, call light within reach, left in bed, bed alarm in place, gait belt, patient at risk for falls, and nurse notified Restraints: N/A Education Education Given To: patient Education Provided: OT Role, Plan of Care, ADL Adaptive Strategies, Transfer Training, Discharge Recommendations, and Benefits of Increasing Activity Education Method: Verbal and Demonstration Barriers to Learning: Cognition Education Outcome: Verbalized Understanding and Continued Education Needed Goals Patient Stated Goal: did not state [place] (more content not included)... [facility] 06-15-2024 Note Hospitalist Progress Note 06/15/2024 [phone]: Please page me ([phone]) for patient care issues. [phone]: Please page [facility] night Hospitalist for any issues. Subjective: Admit Date: 06/13/2024 PCP: No primary care provider on file. Room#: V4-008/Y6-931 A Interval History: patient admitted for sepsis in setting of bacteremia and COVID 19. No overnight issues. Denies chest pain, sob, abdominal pain, nausea, vomiting, diarrhea, constipation, fevers, or chills. Reports SOB improving. Adult diet Regular; 5 carb choices (75 gm/meal) 24HR INTAKE/OUTPUT: Intake/Output Summary (Last 24 hours) at 06/15/2024 1354 Last data filed at 06/14/2024 2321 Gross per 24 hour Intake 1827.5 ml Output -- Net 1827.5 ml Past Medical History: No past medical history on file. LABS: CBC: Recent Labs 06/13/24 1849 06/14/24 0348 06/15/24 0322 WBC 9.5 11.4* 10.7 RBC 2.98* 3.42* 2.93* HGB 9.3* 10.3* 8.9* HCT 27.5* 32.5* 27.2* MCV 92.3 95.0 92.8 RDW 13.0 12.7 12.7 PLT 191 197 199 BMP: Recent Labs 06/13/24 17206/14/248 06/14/24173206/15/24321 NA 133* 133* -- 128* K 3.9 3.4* -- 3.6 CL 95* 98 -- 96* CO2 36* 32* -- 28 BUN 22* 21* -- 29* CREATININE 0.67 0.70 -- 0.82 GLUCOSE 180* 191* 510* 290* CALCIUM 8.9 8.7 -- 8.3* ANIONGAP 2* 4 -- 4 LIVER PROFILE: Recent Labs 06/13/24172106/14/248 AST 36 42 ALT 12 12 BILITOT 2.2* 1.7* ALKPHOS 146* 141* PROT 6.8 6.1* PT/INR: Recent Labs 06/13/241721 PROTIME 13.5* INR 1.2* CARDIAC ENZYMES: Recent Labs 06/13/24 17206/13/24202606/14/248 TROPONINI <0.012 0.013 <0.012 Procalcitonin: Lab Results Component Value Date PROCAL 0.61 (H) 06/14/2024 COVID-19 PCR: No results for input(s): "COVID19" in the last 72 hours. Objective: Vitals: BP (!) 112/48 (BP Location: Left arm, Patient Position: Lying) Pulse 64 Temp 36.1 ?C (97 ?F) (Temporal) Resp 17 Ht 5' 5" (1.651 m) Wt 150 lb (68 kg) SpO2 97% BMI 24.96 kg/m? Pulse Ox: SpO2 Av.5 % Min: 97 % Max: 98 % Supplemental O2: O2 Flow Rate (L/min): 2 L/min General appearance: No apparent distress, appears stated age and cooperative with exam, elderly female in NAD HEENT: left facial bruising Respiratory: diminished BL, no crackles audible. No wheezing. Cardiovascular: Regular rate and rhythm with no murmur Abdomen: Soft, non-tender, non-distended Skin: Skin color, texture, turgor normal. No rashes or lesions. Distal pulses intact in BL LE, no edema in BL LE Neurologic: Neurovascularly intact without any focal sensory/motor deficits. Cranial nerves: II-XII intact, grossly non-focal. Medications: sodium chloride, 150 mL/hr, Last Rate: 150 mL/hr (06/15/24 0315) atorvastatin, 40 mg, Oral, Daily buPROPion XL, 150 mg, Oral, Daily dexAMETHasone, 6 mg, Oral, Daily enoxaparin, 40 mg, SubCUTAneous, Daily insulin glargine, 30 Units, SubCUTAneous, Daily insulin lispro, 0-18 Units, SubCUTAneous, TID WC And insulin lispro, 0-18 Units, SubCUTAneous, Nightly levothyroxine, 175 mcg, Oral, qAM AC piperacillin-tazobactam, 3,375 mg, IntraVENous, q8h remdesivir (Veklury) 100 mg in sodium chloride 0.9 % 250 mL IVPB, 100 mg, IntraVENous, q24h venlafaxine XR, 37.5 mg, Oral, Daily Assessment Acute hypoxic respiratory failure COVID 19 PNA Remdesivir and decadron Supplemental O2, wean as tolerated Symptomatic management PRN Patient is not on supplemental O2 at baseline CXR reviewed negative for PNA Bacteremia, Ecoli UTI Acute cystitis Suspected right pyelonephritis Simple sepsis Sensitivities pending UA and UC pending Broad coverage abx Left facial bruising Mechanical fall suspected Patient without fall reported from SNF CT of head negative Monitor status DM type 2 SSI coverage Basal insulin resumed Monitor BG in setting of steroids as above Hypothyroidism Levothyroxine resumed Hx of CVA Statin, ASA and plavix CT of head negative Hyponatremia Urine studies and serum osm pending BMP in the AM. Medical Decision Making 06/14/24: patient with increased cough and headache. She is found to have simple sepsis and positive BC for e coli, imaging showing suspected right pyelonephritis and suspected cystitis as well. UA and culture pending. She is also COVID 19 positive with hypoxia. She is being treated with broad spectrum abx, decadron, remdesivir. Wean O2 as tolerated. CXR not obtained in the ED? Imaging pending. She has some bruising on left face, no reported fall? CT of head negative. Home medications reviewed and resumed as indicated. CBC and BMP in the AM. 06/15/24: patient weaned to RA, stable respiratory status, continue to wait for UA and culture pending. BC remain positive, sensitivities pending. Continue broad coverage abx. CT head negative, CXR negative as well for PNA. Sodium dropped to 128 today, urine studies pending, serum osm pending. CBC and BMP in the A (more content not included)... [facility] 06-15-2024 Note PHYSICAL THERAPY [facility] Initial Evaluation Name/MRN: Marcia Rooney ([id number]) Evaluation Date: 06/15/2024 Date of : 1945 Admission Date: 06/13/2024 4:36 PM Age: 78 y.o. Room[facility]Bed: [facility] A Discharge Recommendation: Snf Facility Equipment Needed: No Assessment IMPRESSION: Pt admitted to ED on 06/13/24 with Covid and associated N/V. Prior to admission, pt resides at SNF and performed mobility with assist from facility. Pt reports being from home which contradicts pts charting. PMHx significant for Alzheimer's Dementia. Upon eval, pt required Min Ax1 for bed mobility, Mod Ax1 for transfers, Mod Ax1 for short bedside stepping/pre-gait with fww. Pt would benefit from skilled PT services in order to increase safety and independence in functional mobility and daily tasks. Recommend return to SNF upon DC. Admitting Diagnosis: Covid Prognosis: good Performance Deficits /Impairments: Decreased Functional Mobility, Decreased ADL status, Decreased Strength, Decreased Safety Awareness, Decreased Endurance, and Decreased Balance Decision Making: Medium Complexity Subjective Pt pleasant and agreeable to PT evaluation. RN cleared pt for session. Pain: Mcelroy-Riggins Pain Ratin = Hurts even more Pain Location: R groin with mobility. Past Medical History: No past medical history on file. Past Surgical History: No past surgical history on file. Admission Diagnosis: Patient Active Problem List Diagnosis Date Noted COVID 06/13/2024 Medical Precautions: Droplet Plus Proper PPE donned/doffed in accordance with facility standards. Fall Risk: Jacinto Fall Risk Score: 45 (High Risk) Precautions/Restrictions: N/A Family/Caregiver Present: none Overall Cognitive Status: Exceptions - Memory: decreased recall of recent events, decreased short term memory, and decreased [employer] memory - Safety judgement: decreased awareness of need for assistance - Problem solving: assistance required to generate solutions, assistance required to implement solutions, assistance required to identify errors made, and assistance required to correct errors made - Insights: decreased awareness of deficits - Initiation: requires cues for some - Sequencing: requires cues for some Overall Orientation Status: Oriented to Place, Oriented to Situation, Oriented to Person, and Disoriented to Time Vision: no visual deficits Hearing: normal Social/Functional History Patient admitted from SNF. Assistive Equipment: front wheeled walker Prior Level of Function Prior Level of ADL Function: Required Assist Prior Level of Mobility: Required Assist; Device: Front wheeled walker Prior Level of Transfers: Required Assist Objective Lower Extremity Assessment AROM: WFL Strength: Gross strength in BLEs 3+/5, marked pain in L knee with MMT Sensation: WFL Bed Mobility: Supine to sit: Min Assist Sit to supine: Min Assist Pt required Min Ax1 for all bed mobility with increased cues for hand placement, body mechanics and overall sequencing to sit EOB and return to supine. Limited ability to tolerate EOB sitting d/t color of floor. Pt reports the blue sally makes it feel like I'm in a pool and it makes me really nauseous." Pt impulsively threw self posteriorly upon onset of nausea requiring assist to prevent pt from hitting head on bed rail. Redirection and reorientation to gaze fixation away from sally required. Increased time and effort needed to complete. Transfers Sit to stand: Mod Assist Stand to sit: Mod Assist Stand step: Mod Assist Pt completed STS x1 from EOB with fww at Mod Ax1. Additional forward stepping x3 and backwards x3 completed with Mod Ax1. BLE buckling noted and increased assistance required for postural stabilization. Cues for proper hand placement, sequencing and transfer surface approximation with fww management required. Ambulation Pre-gait training assessed at bedside, see transfer section for bedside stepping. Outcome Measures AM-PAC How much HELP from another person do you currently need Turning from your back to your side while in a flat bed without using bedrails?: A Little Moving from lying on your back to sitting on the side of a flat bed without using bedrails?: A Little Moving to and from a bed to a chair (including a wheelchair)?: A Lot Standing up from a chair using your arms (wheelchair or bedside chair)?: A Lot Walking in a hospital room?: A Lot Stair climbing assessed?: No AM-PAC Inpatient Mobility Raw Score (No Stairs) : 12 Plan Pt would benefit from skilled acute PT services to address Strengthening, Gait Training, Balance Training, Self-Care/ADL Training, Functional Mobility Training, Endurance Training, Safety Education and Training, and Pain Management. Frequency: 7 visits during current hospital admission or until additional recommendations are made Barriers: Pain, Impaired balance, Lower (more content not included)... [facility] 06-14-2024 Note Problem: Safety - Ad ult Goal: Free from fall injury Outcome: Progressing Problem: Knowledge Deficit Goal: Patient/family/caregiver demonstrates understanding of disease process, treatment plan, medications, and discharge instructions Outcome: Progressing [facility] 06-14-2024 Plan of care note Problem: Safety - Adult Goal: Free from fall injury Outcome: Progressing Problem: Knowledge Deficit Goal: Patient/family/caregiver demonstrates understanding of disease process, treatment plan, medications, and discharge instructions Outcome: Progressing [facility] 06-14-2024 Plan of care note Problem: Pain - Adult Goal: Verbalizes/displays adequate comfort level or baseline comfort level Outcome: Progressing Problem: Safety - Adult Goal: Free from fall injury Outcome: Progressing Problem: Discharge Planning Goal: Discharge to home or other facility with appropriate resources Outcome: Progressing Problem: Chronic Conditions and Co-morbidities Goal: Patient's chronic conditions and co-morbidity symptoms are monitored and maintained or improved Outcome: Progressing Problem: Knowledge Deficit Goal: Patient/family/caregiver demonstrates understanding of disease process, treatment plan, medications, and discharge instructions Outcome: Progressing Problem: Potential for Compromised Skin Integrity Goal: Skin Integrity is Maintained or Improved Outcome: Progressing Goal: Nutritional status is improving Outcome: Progressing Problem: Urinary Incontinence Goal: Perineal skin integrity is maintained or improved Outcome: Progressing [facility] 06-14-2024 Note Hospitalist Progress Note 06/14/[id number]: Please page me ([phone]) for patient care issues. [phone]: Please page [facility] Hospitalist for any issues. Subjective: Admit Date: 06/13/2024 PCP: No primary care provider on file. Room#: B4466/B4466 A Interval History: patient admitted for sepsis in setting of bacteremia and COVID 19. No overnight issues. Denies chest pain, sob, abdominal pain, nausea, vomiting, diarrhea, constipation, fevers, or chills. Reports some mild SOB and cough. Adult diet Regular 24HR INTAKE/OUTPUT: Intake/Output Summary (Last 24 hours) at 06/14/2024 1246 Last data filed at 06/14/2024 0445 Gross per 24 hour Intake 1305.83 ml Output -- Net 1305.83 ml Past Medical History: No past medical history on file. LABS: CBC: Recent Labs 06/13/24 1849 06/14/24 0348 WBC 9.5 11.4* RBC 2.98* 3.42* HGB 9.3* 10.3* HCT 27.5* 32.5* MCV 92.3 95.0 RDW 13.0 12.7 PLT 191 197 BMP: Recent Labs 06/13/24 1722 06/14/24 0048 NA 133* 133* K 3.9 3.4* CL 95* 98 CO2 36* 32* BUN 22* 21* CREATININE 0.67 0.70 GLUCOSE 180* 191* CALCIUM 8.9 8.7 ANIONGAP 2* 4 LIVER PROFILE: Recent Labs 06/13/24 1722 06/14/24 0048 AST 36 42 ALT 12 12 BILITOT 2.2* 1.7* ALKPHOS 146* 141* PROT 6.8 6.1* PT/INR: Recent Labs 06/13/241721 PROTIME 13.5* INR 1.2* CARDIAC ENZYMES: Recent Labs 06/13/24172106/13/24202606/14/24 0048 TROPONINI <0.012 0.013 <0.012 Procalcitonin: Lab Results Component Value Date PROCAL 0.61 (H) 06/14/2024 COVID-19 PCR: No results for input(s): "COVID19" in the last 72 hours. Objective: Vitals: BP 109/54 (BP Location: Right arm, Patient Position: Lying) Pulse 69 Temp 36.3 ?C (97.3 ?F) (Temporal) Resp 16 Ht 5' 5" (1.651 m) Wt 150 lb (68 kg) SpO2 98% BMI 24.96 kg/m? Pulse Ox: SpO2 Av.8 % Min: 92 % Max: 99 % Supplemental O2: O2 Flow Rate (L/min): 4 L/min General appearance: No apparent distress, appears stated age and cooperative with exam, elderly female in NAD HEENT: left facial bruising Respiratory: diminished BL, no crackles audible. Cardiovascular: Regular rate and rhythm with no murmur Abdomen: Soft, non-tender, non-distended Skin: Skin color, texture, turgor normal. No rashes or lesions. Distal pulses intact in BL LE, no edema in BL LE Neurologic: Neurovascularly intact without any focal sensory/motor deficits. Cranial nerves: II-XII intact, grossly non-focal. Medications: sodium chloride, 150 mL/hr, Last Rate: 150 mL/hr (06/14/24 1056) atorvastatin, 40 mg, Oral, Daily buPROPion XL, 150 mg, Oral, Daily dexAMETHasone, 6 mg, Oral, Daily enoxaparin, 40 mg, SubCUTAneous, Daily insulin glargine, 25 Units, SubCUTAneous, Daily insulin lispro, 0-6 Units, SubCUTAneous, TID WC And insulin lispro, 0-6 Units, SubCUTAneous, Nightly levothyroxine, 175 mcg, Oral, qAM AC piperacillin-tazobactam, 3,375 mg, IntraVENous, q8h remdesivir (Veklury) 100 mg in sodium chloride 0.9 % 250 mL IVPB, 100 mg, IntraVENous, q24h venlafaxine XR, 37.5 mg, Oral, Daily Assessment Acute hypoxic respiratory failure COVID 19 PNA Remdesivir and decadron Supplemental O2, wean as tolerated Symptomatic management PRN Patient is not on supplemental O2 at baseline CXR pending. Bacteremia, Ecoli UTI Acute cystitis Suspected right pyelonephritis Simple sepsis Sensitivities pending UA and UC pending Broad coverage abx Left facial bruising Mechanical fall suspected Patient without fall reported from SNF CT of head negative Monitor status DM type 2 SSI coverage Basal insulin resumed Monitor BG in setting of steroids as above Hypothyroidism Levothyroxine resumed Hx of CVA Statin, ASA and plavix CT of head negative Medical Decision Making 06/14/24: patient with increased cough and headache. She is found to have simple sepsis and positive BC for e coli, imaging showing suspected right pyelonephritis and suspected cystitis as well. UA and culture pending. She is also COVID 19 positive with hypoxia. She is being treated with broad spectrum abx, decadron, remdesivir. Wean O2 as tolerated. CXR not obtained in the ED? Imaging pending. She has some bruising on left face, no reported fall? CT of head negative. Home medications reviewed and resumed as indicated. CBC and BMP in the AM. -am labs, replace lytes prn -increase activity -resume home medications as indicated -DVT prophylaxis: [x] Lovenox [] Heparin [] SCDs [x] Encourage ambulation [] Already on Anticoagulation Anticipated Discharge - Date - 06/16 vs 06/17? - Location - Home vs SNF - Pending the following - improvement in respiratory status Toxic drug monitoring/narrow therapeutic index drug monitoring : # Drug name : # Route administered : # Method of monitoring : Extended Emergency Contact Information Primary Emergency Contact: Elsi Rooney Mobile (more content not included)... [facility] 06-14-2024 Note Formatting of this n ote might be different from the original. Zosyn started due to 2 bcx + gram neg Previously was on rocephin [facility] 06-14-2024 Note Formatting of this n ote might be different from the original. Zosyn started due to 2 bcx + gram neg Previously was on rocephin [facility] 06-14-2024 History and physical note Images from the original note were not included. History and Physical [facility] : 1945 AGE 78 y.o. YEARS Note Date 06/14/2024 Primary Care Physician:No primary care provider on file. Phone None Fax None Current Providers as of 06/13/2024 PCP: not found Referring Provider: not found, starting on SunJun 13, 2024 12:00 AM Admitting Provider: Mari Diaz MD, (Active) Attending Provider: Rita Alex DO, starting on SunJun 13, 2024 4:40 PM, ending on SunJun 13, 2024 11:28 PM (Inactive) Attending Provider: Mari Diaz MD, starting on SunJun 13, 2024 9:08 PM (Active) Registered Nurse: Elvie Gruber RN, starting on SunJun 13, 2024 4:37 PM, ending on SunJun 13, 2024 6:53 PM (Inactive) Credit Risk Specialist RES: Juan Palafox MD, starting on SunJun 13, 2024 4:41 PM, ending on SunJun 13, 2024 6:32 PM (Inactive) Credit Risk Specialist RES: Temitope Jolly DO, starting on SunJun 13, 2024 4:41 PM, ending on SunJun 13, 2024 4:46 PM (Inactive) Registered Nurse: Vianey Johnson RN, starting on SunJun 13, 2024 7:23 PM, ending on SunJun 13, 2024 11:28 PM (Inactive) Assistant Finance Director: Sharon Lombardo, starting on SunJun 14, 2024 12:02 AM (Active) Registered Nurse: Lexy Honeycutt, ROXANNE, starting on SunJun 14, 2024 12:27 AM (Active) Chief Complaint: Nausea HPI: She states she feels bad, she is coughing frequently Has a slight headache She has nausea and diarrhea She denies falling recently, or does not know how she got bruising under her left eye She reports she might have been sent somewhere to get it checked out, but she is not sure She denies hurting anywhere - any joints She is only alert to name She thought she was at home first, she does not know the month She has to be reoriented several times during the interview Ecf report of low hgb and N&V since yesterday Review of Systems: General: Skin: HEENT: Cardiovascular Fever y Rashes Difficulty chewing Chest Pain n Chills y Sores Appetite Loss Chest Pressure n Fatigue y Epistaxis Orthopnea n Sweats Hearing loss Palpitations n GI: Tinnitus GERD n Vision quality RESP: Abdominal Pain n : SOB/CLARK y Nausea y Hematuria n Cough y Vomiting n Dysuria n Productive/Sputum n Hematemesis n NEURO: Urgency n Hemoptysis Diarrhea y Headaches y Frequency n Wheezing n Constipation Seizures n Times at night urinating n Heamatochezia Neuropathy n catheter present n MSK: Melena Focal weakness n Hesitancy Focal Numbness n Incontinence Acute joint pain n Dizzy/Vertigo n Redness n Difficulty speaking n Heme/Lymph Swelling n Difficulty walking n Lymphadenopathy Myalgia n Ataxia Chronic joint pain n No past medical history on file. DM Hypothyroidism No past surgical history on file. Not on File Medications Prior to Admission: Current Outpatient Medications Medication Instructions acetaminophen (TYLENOL) 650 mg, Oral, Every 6 hours PRN aspirin 81 mg, Oral, Daily atorvastatin (LIPITOR) 40 mg, Oral, Daily bisacodyl (DULCOLAX) 5 mg, Oral, Daily PRN, Do not crush, chew, or split. bisacodyl (DULCOLAX) 10 mg, Rectal, Daily PRN bumetanide (BUMEX) 1 mg, Oral, Daily buPROPion XL (WELLBUTRIN XL) 150 mg, Oral, Daily, Do not crush, chew, or split. clopidogrel (PLAVIX) 75 mg, Oral, Daily Glucagon 1 MG/0.2ML solution SubCUTAneous glucose (GLUTOSE) 15 g, Oral, Every 15 min PRN Insulin Glargine (TOUJEO SOLOSTAR SC) 25 Units, SubCUTAneous, Daily levothyroxine (SYNTHROID, LEVOXYL) 175 mcg, Oral, Daily before breakfast magnesium hydroxide (Milk of Magnesia) 800 MG/5ML suspension 30 mL, Oral, Daily PRN midodrine (PROAMATINE) 2.5 mg, 3 times daily ondansetron (ZOFRAN) 4 mg, Oral, Every 8 hours PRN pioglitazone (ACTOS) 30 mg, Oral, Daily promethazine (PHENERGAN) 25 mg, Rectal, Every 8 hours PRN venlafaxine XR (EFFEXOR XR) 37.5 mg, Oral, Daily, Do not crush or chew. Social History Social History Tobacco Use Smoking status: Not on file Smokeless tobacco: Not on file Substance Use Topics Alcohol use: Not on file Family History No family history on file. Physical Exam Temp (24hrs), Av.2 C (100.8 F), Min:36.1 C (97 F), Max:39.5 C (103.1 F) Body mass index is 24.96 kg/m .BMI Classification: Normal Weight (BMI 18.5-24.9) BP (!) 104/43 (BP Location: Left arm, Patient Position: Lying) Pulse 62 Temp 36.1 C (97 F) (Temporal) Resp 20 Ht 5' 5" (1.651 m) Wt 150 lb (68 kg) SpO2 99% BMI 24.96 kg/m Pulse Ox: SpO2 Av.4 % Min: 92 % Max: 99 % Supplemental O2: O2 Flow Rate (L/min): 4 L/min General appearance: No apparent distress, appears stated age and cooperative with exam HEENT: She has bruising under her left eye As shown below she has a little bruising underneath her left eye. I did not appreciate any bony abnormalities palpating around her orbit. Her extract movements are intact by using a very bright light checking her pupillary reflexes left eye was reactive but a little bit larger than right eye 0.1 mm Neck: Supple, with full range of motion. No jugular venous distention. Trachea midline. No lymphadenopathy. Respiratory: Normal respiratory effort. Clear to auscultation, bilaterally without Rales/Wheezes/Rhonchi. Cardiovascular: Regular rate and rhythm with normal S1/S2 without murmurs, rubs or gallops. Abdomen: Soft, non-tender, non-distended with normal bowel sounds. No rebound or guarding. Musculoskeletal: No clubbing, cyanosis or edema bilaterally. Full range of motion without deformity. No cva tenderness Skin: Skin color, texture, turgor normal. No rashes or lesions. Neurologic: Neurovascularly intact without any focal sensory/motor deficits. Cranial nerves grossly intact. Labs Admission on 06/13/2024 Component Date Value AMMONIA 06/13/2024 <9 (L) THYROID STIMULATING HORM* 06/13/2024 4.152 FREE T4 06/13/2024 1.58 ABO Grouping 06/13/2024 O Antibody Screen 06/13/2024 NEG Rh Type 06/13/2024 POS PROTHROMBIN TIME 06/13/2024 13.5 (H) INR 06/13/2024 1.2 (H) APTT 06/13/2024 31.6 (H) LACTIC ACID 06/13/2024 1.4 Blood Culture 06/13/2024 Blood culture incubation started Blood Culture 06/13/2024 Blood culture incubation started SODIUM 06/13/2024 133 (L) POTASSIUM 06/13/2024 3.9 CHLORIDE 06/13/2024 95 (L) CARBON DIOXIDE 06/13/2024 36 (H) ANION GAP 06/13/2024 2 (L) UREA NITROGEN 06/13/2024 22 (H) CREATININE 06/13/2024 0.67 GLUCOSE 06/13/2024 180 (H) CALCIUM 06/13/2024 8.9 AST (SGOT) 06/13/2024 36 ALT 06/13/2024 12 ALKALINE PHOSPHATASE 06/13/2024 146 (H) ALBUMIN 06/13/2024 3.6 BILIRUBIN, TOTAL 06/13/2024 2.2 (H) TOTAL PROTEIN 06/13/2024 6.8 eGFR 06/13/2024 89.6 Heart Rate 06/13/2024 88 QRSD Interval 06/13/2024 143 QT Interval 06/13/2024 390 QTC Interval 06/13/2024 473 P [place] 06/13/2024 27 QRS [place] 06/13/2024 -24 T Wave [place] 06/13/2024 6 MO Interval 06/13/2024 167 TROPONIN I 06/13/2024 <0.012 ABO Grouping 06/13/2024 O Rh Type 06/13/2024 POS TROPONIN I 06/13/2024 0.013 Auto WBC 06/13/2024 9.5 RBC 06/13/2024 2.98 (L) Hemoglobin 06/13/2024 9.3 (L) Hematocrit 06/13/2024 27.5 (L) MCV 06/13/2024 92.3 MCH 06/13/2024 31.2 MCHC 06/13/2024 33.8 RDW 06/13/2024 13.0 Platelets 06/13/2024 191 MPV 06/13/2024 10.1 RBC Morphology 06/13/2024 Normal Neutrophils % 06/13/2024 92 (H) Bands % 06/13/2024 1 (H) Lymphocytes % 06/13/2024 2 (L) Monocytes % 06/13/2024 5 Absolute Neutrophil Count 06/13/2024 8.8 (H) Bands Absolute 06/13/2024 0.1 (H) Lymphocytes Absolute 06/13/2024 0.2 (L) Monocytes Absolute 06/13/2024 0.5 Neutrophils Manual 06/13/2024 94 Lymphocytes Manual 06/13/2024 2 Monocytes Manual 06/13/2024 5 Bands Manual 06/13/2024 1 SARS-CoV-2 06/13/2024 Detected (A) Respiratory Syncytial Vi* 06/13/2024 Not Detected Influenza A 06/13/2024 Not Detected Influenza B 06/13/2024 Not Detected EKG Encounter Date: 06/13/24 ECG 12 lead Result Value Heart Rate 88 QRSD Interval 143 QT Interval 390 QTC Interval 473 P [place] 27 QRS [place] -24 T Wave [place] 6 MO Interval 167 Impression Sinus rhythm Right bundle branch block no stemi no previous to compare Electronically Signed On 06-13-2024 23:47:57 EST by Neeru Baker Assessment/Plan and Medical Decision Making Facial bruising Left pupil slight more dilated I reviewed the ECF sheets. There is no mention of a fall. There is some labs and they are from [facility] in discussing with the patient she might have fallen over the past week and went to [facility] to be checked on. But in care everywhere I cannot find any reports of this or any images. At this time I will send her down to get a CT of her head as she also reported she had a headache Has pupil changes which I do not know if new or chronic and has evidence of bruising below her left eye. + covid Unclear symptom start date ?2-3 days ago + hypoxia in the ed + fever in the ed Lung portions of ct of abd and pelvis reviewed No definite change Start on rem/dex Admitted under isolation Infectious disease + covid Suspect urinary infection Awaiting ua + covid + fever and tachycardia She was started on the remdesivir above for COVID. Emergency room gave 1 dose of Rocephin as we are waiting to obtain a urine Suspect possible urin infection based on ct of abd and pelvis done in the ed "1. Mild bladder wall thickening, correlate for cystitis. 2. Mild left renal hydronephrosis and prominence of the right renal collecting system. There is no obstructing ureteral calculus. There is mild stranding in the fat surrounding the right kidney and abutting the right psoas muscle. Consider infectious/inflammatory process." MAR- CORE MEASURE DATA SIRS Criteria Sepsis Criteria Severe Sepsis Criteria Septic Shock Criteria Must meet 2: [x] Temperature > 100.4 F (38 C) or < 96.8 F (36 C) [x] HR > 90 [] RR > 20 [] WBC > 12 or < 4 or 10% bands Must be confirmed or suspected to move forward with diagnosis of sepsis. Must select at least one: [] Bacterial Infection Confirmed or Suspected. [x] Viral Infection Confirmed or Suspected. Infection Source: Urinary/covid [] No infection suspected Must meet 1: [] Lactate > 2 or [] Signs of Organ Dysfunction: - SBP < 90 or MAP < 65 - Altered mental status - Creatinine > 2 or increased from baseline - Urine Output < 0.5 ml/kg/hr - Bilirubin > 2 - INR > 1.5 - Platelets < 100,000 - Acute Respiratory Failure as evidenced by new need for NIPPV or mechanical ventilation . Must meet 1: [] Lactate = or > 4 or [] SBP < 90 or MAP < 65 for at least two readings in the first hour after fluid bolus administration [] No SIRS criteria met [] Only one SIRS criteria met -Patient does NOT meet full criteria for SIRS [x] Yes - Sirs Criteria Met (at least 2) Criteria for Sepsis [] No [x] Yes- meets criteria for sepsis Criteria for Severe Sepsis [x] No [] Yes- meets criteria for severe sepsis Criteria for Septic Shock [x] No . [] YES - meets criteria septic shock. [] To be determined after response to fluid bolus Fluid Resuscitation Rational: Patient does not meet criteria for Severe Sepsis or Septic Shock. 30mL/kg bolus not indicated diabetes I will continue her basal insulin at home cover with sliding scale She may need extra coverage due to receiving steroids for COVID above hypothyroidism I will continue her levothyroxine 175 mcg daily H/o cva No new symptoms noted I will continue her her atorvastatin additionally she is on aspirin and Plavix I will wait for head CT to come back before ordering the aspirin and Plavix Resume diet I discussed the need for admission with the emergency provider. -DVT prophylaxis: [x] Lovenox [] Heparin [] SCDs [x] Encourage ambulation [] Already on Anticoagulation [] Pharmocologic prophylaxis on hold to due risk bleed/procedure [] Low risk, ambulatory [] Both pharmacologic and mechanical contraindicated 62 minutes - Time spent on admission 06/14/2024 Marcia Rooney [id number] Any scheduled follow up appointments Extended Emergency Contact Information Primary Emergency Contact: Elsi Rooney Mobile Relation: [id number] Portions of this note may be electronically transcribed. Please forward a copy of this H&P to the primary care physician. [facility] [employer] Work Phone: 06-14-2024 Note History and Physical [facility] Marcia Rooney : 1945 AGE 78 y.o. YEARS Note Date 06/14/2024 Primary Care Physician:No primary care provider on file. Phone None Fax None Current Providers as of 06/13/2024 PCP: not found Referring Provider: not found, starting on SunJun 13, 2024 12:00 AM Admitting Provider: Mari Diaz MD, (Active) Attending Provider: Rita Alex DO, starting on SunJun 13, 2024 4:40 PM, ending on SunJun 13, 2024 11:28 PM (Inactive) Attending Provider: Mari Diaz MD, starting on SunJun 13, 2024 9:08 PM (Active) Registered Nurse: Elvie Gruber RN, starting on SunJun 13, 2024 4:37 PM, ending on SunJun 13, 2024 6:53 PM (Inactive) Credit Risk Specialist RES: Juan Palafox MD, starting on SunJun 13, 2024 4:41 PM, ending on SunJun 13, 2024 6:32 PM (Inactive) Credit Risk Specialist RES: Temitope Jolly DO, starting on SunJun 13, 2024 4:41 PM, ending on SunJun 13, 2024 4:46 PM (Inactive) Registered Nurse: Vianey Johnson RN, starting on SunJun 13, 2024 7:23 PM, ending on SunJun 13, 2024 11:28 PM (Inactive) Assistant Finance Director: Sharon Lombardo, starting on SunJun 14, 2024 12:02 AM (Active) Registered Nurse: Lexy Honeycutt RN, starting on SunJun 14, 2024 12:27 AM (Active) Chief Complaint: Nausea HPI: She states she feels bad, she is coughing frequently Has a slight headache She has nausea and diarrhea She denies falling recently, or does not know how she got bruising under her left eye She reports she might have been sent somewhere to get it checked out, but she is not sure She denies hurting anywhere - any joints She is only alert to name She thought she was at home first, she does not know the month She has to be reoriented several times during the interview Ecf report of low hgb and N&V since yesterday Review of Systems: General: Skin: HEENT: Cardiovascular Fever y Rashes Difficulty chewing Chest Pain n Chills y Sores Appetite Loss Chest Pressure n Fatigue y Epistaxis Orthopnea n Sweats Hearing loss Palpitations n GI: Tinnitus GERD n Vision quality RESP: Abdominal Pain n : SOB/CLARK y Nausea y Hematuria n Cough y Vomiting n Dysuria n Productive/Sputum n Hematemesis n NEURO: Urgency n Hemoptysis Diarrhea y Headaches y Frequency n Wheezing n Constipation Seizures n Times at night urinating n Heamatochezia Neuropathy n catheter present n MSK: Melena Focal weakness n Hesitancy Focal Numbness n Incontinence Acute joint pain n Dizzy/Vertigo n Redness n Difficulty speaking n Heme/Lymph Swelling n Difficulty walking n Lymphadenopathy Myalgia n Ataxia Chronic joint pain n No past medical history on file. DM Hypothyroidism No past surgical history on file. Not on File Medications Prior to Admission: Current Outpatient Medications Medication Instructions acetaminophen (TYLENOL) 650 mg, Oral, Every 6 hours PRN aspirin 81 mg, Oral, Daily atorvastatin (LIPITOR) 40 mg, Oral, Daily bisacodyl (DULCOLAX) 5 mg, Oral, Daily PRN, Do not crush, chew, or split. bisacodyl (DULCOLAX) 10 mg, Rectal, Daily PRN bumetanide (BUMEX) 1 mg, Oral, Daily buPROPion XL (WELLBUTRIN XL) 150 mg, Oral, Daily, Do not crush, chew, or split. clopidogrel (PLAVIX) 75 mg, Oral, Daily Glucagon 1 MG/0.2ML solution SubCUTAneous glucose (GLUTOSE) 15 g, Oral, Every 15 min PRN Insulin Glargine (TOUJEO SOLOSTAR SC) 25 Units, SubCUTAneous, Daily levothyroxine (SYNTHROID, LEVOXYL) 175 mcg, Oral, Daily before breakfast magnesium hydroxide (Milk of Magnesia) 800 MG/5ML suspension 30 mL, Oral, Daily PRN midodrine (PROAMATINE) 2.5 mg, 3 times daily ondansetron (ZOFRAN) 4 mg, Oral, Every 8 hours PRN pioglitazone (ACTOS) 30 mg, Oral, Daily promethazine (PHENERGAN) 25 mg, Rectal, Every 8 hours PRN venlafaxine XR (EFFEXOR XR) 37.5 mg, Oral, Daily, Do not crush or chew. Social History Social History Tobacco Use Smoking status: Not on file Smokeless tobacco: Not on file Substance Use Topics Alcohol use: Not on file Family History No family history on file. Physical Exam Temp (24hrs), Av.2 ?C (100.8 ?F), Min:36.1 ?C (97 ?F), Max:39.5 ?C (103.1 ?F) Body mass index is 24.96 kg/m?.BMI Classification: Normal Weight (BMI 18.5-24.9) BP (!) 104/43 (BP Location: Left arm, Patient Position: Lying) Pulse 62 Temp 36.1 ?C (97 ?F) (Temporal) Resp 20 Ht 5' 5" (1.651 m) Wt 150 lb (68 kg) SpO2 99% BMI 24.96 kg/m? Pulse Ox: SpO2 Av.4 % Min: 92 % Max: 99 % Supplemental O2: O2 Flow Rate (L/min): 4 L/min General appearance: No apparent distress, appears stated age and cooperative with exam HEENT: She has bruising under her left eye As shown below she has a little bruising underneath her left eye. I did not appreciate any bony abnormalities palpating around her orbit. Her extract movements are intact by using a very bright light checking her pupillary reflexes left eye was reactive but a li (more content not included)... [facility] 06-14-2024 History and physical note Images from the original note were not included. History and Physical [facility] : 1945 AGE 78 y.o. YEARS Note Date 06/14/2024 Primary Care Physician:No primary care provider on file. Phone None Fax None Current Providers as of 06/13/2024 PCP: not found Referring Provider: not found, starting on SunJun 13, 2024 12:00 AM Admitting Provider: Mari Diaz MD, (Active) Attending Provider: Rita Alex DO, starting on SunJun 13, 2024 4:40 PM, ending on SunJun 13, 2024 11:28 PM (Inactive) Attending Provider: Mari Diaz MD, starting on SunJun 13, 2024 9:08 PM (Active) Registered Nurse: Elvie Gruber RN, starting on SunJun 13, 2024 4:37 PM, ending on SunJun 13, 2024 6:53 PM (Inactive) Credit Risk Specialist RES: Juan Palafox MD, starting on SunJun 13, 2024 4:41 PM, ending on SunJun 13, 2024 6:32 PM (Inactive) Credit Risk Specialist RES: Temitope Jolly DO, starting on SunJun 13, 2024 4:41 PM, ending on SunJun 13, 2024 4:46 PM (Inactive) Registered Nurse: Vianey Johnson RN, starting on SunJun 13, 2024 7:23 PM, ending on SunJun 13, 2024 11:28 PM (Inactive) Assistant Finance Director: Sharno Lombardo, starting on Sat Jun 14, 2024 12:02 AM (Active) Registered Nurse: Lexy Honeycutt RN, starting on Sat Jun 14, 2024 12:27 AM (Active) Chief Complaint: Nausea HPI: She states she feels bad, she is coughing frequently Has a slight headache She has nausea and diarrhea She denies falling recently, or does not know how she got bruising under her left eye She reports she might have been sent somewhere to get it checked out, but she is not sure She denies hurting anywhere - any joints She is only alert to name She thought she was at home first, she does not know the month She has to be reoriented several times during the interview Ecf report of low hgb and N&V since yesterday Review of Systems: General: Skin: HEENT: Cardiovascular Fever y Rashes Difficulty chewing Chest Pain n Chills y Sores Appetite Loss Chest Pressure n Fatigue y Epistaxis Orthopnea n Sweats Hearing loss Palpitations n GI: Tinnitus GERD n Vision quality RESP: Abdominal Pain n : SOB/CLARK y Nausea y Hematuria n Cough y Vomiting n Dysuria n Productive/Sputum n Hematemesis n NEURO: Urgency n Hemoptysis Diarrhea y Headaches y Frequency n Wheezing n Constipation Seizures n Times at night urinating n Heamatochezia Neuropathy n catheter present n MSK: Melena Focal weakness n Hesitancy Focal Numbness n Incontinence Acute joint pain n Dizzy/Vertigo n Redness n Difficulty speaking n Heme/Lymph Swelling n Difficulty walking n Lymphadenopathy Myalgia n Ataxia Chronic joint pain n No past medical history on file. DM Hypothyroidism No past surgical history on file. Not on File Medications Prior to Admission: Current Outpatient Medications Medication Instructions acetaminophen (TYLENOL) 650 mg, Oral, Every 6 hours PRN aspirin 81 mg, Oral, Daily atorvastatin (LIPITOR) 40 mg, Oral, Daily bisacodyl (DULCOLAX) 5 mg, Oral, Daily PRN, Do not crush, chew, or split. bisacodyl (DULCOLAX) 10 mg, Rectal, Daily PRN bumetanide (BUMEX) 1 mg, Oral, Daily buPROPion XL (WELLBUTRIN XL) 150 mg, Oral, Daily, Do not crush, chew, or split. clopidogrel (PLAVIX) 75 mg, Oral, Daily Glucagon 1 MG/0.2ML solution SubCUTAneous glucose (GLUTOSE) 15 g, Oral, Every 15 min PRN Insulin Glargine (TOUJEO SOLOSTAR SC) 25 Units, SubCUTAneous, Daily levothyroxine (SYNTHROID, LEVOXYL) 175 mcg, Oral, Daily before breakfast magnesium hydroxide (Milk of Magnesia) 800 MG/5ML suspension 30 mL, Oral, Daily PRN midodrine (PROAMATINE) 2.5 mg, 3 times daily ondansetron (ZOFRAN) 4 mg, Oral, Every 8 hours PRN pioglitazone (ACTOS) 30 mg, Oral, Daily promethazine (PHENERGAN) 25 mg, Rectal, Every 8 hours PRN venlafaxine XR (EFFEXOR XR) 37.5 mg, Oral, Daily, Do not crush or chew. Social History Social History Tobacco Use Smoking status: Not on file Smokeless tobacco: Not on file Substance Use Topics Alcohol use: Not on file Family History No family history on file. Physical Exam Temp (24hrs), Av.2 C (100.8 F), Min:36.1 C (97 F), Max:39.5 C (103.1 F) Body mass index is 24.96 kg/m .BMI Classification: Normal Weight (BMI 18.5-24.9) BP (!) 104/43 (BP Location: Left arm, Patient Position: Lying) Pulse 62 Temp 36.1 C (97 F) (Temporal) Resp 20 Ht 5' 5" (1.651 m) Wt 150 lb (68 kg) SpO2 99% BMI 24.96 kg/m Pulse Ox: SpO2 Av.4 % Min: 92 % Max: 99 % Supplemental O2: O2 Flow Rate (L/min): 4 L/min General appearance: No apparent distress, appears stated age and cooperative with exam HEENT: She has bruising under her left eye As shown below she has a little bruising underneath her left eye. I did not appreciate any bony abnormalities palpating around her orbit. Her extract movements are intact by using a very bright light checking her pupillary reflexes left eye was reactive but a little bit larger than right eye 0.1 mm Neck: Supple, with full range of motion. No jugular venous distention. Trachea midline. No lymphadenopathy. Respiratory: Normal respiratory effort. Clear to auscultation, bilaterally without Rales/Wheezes/Rhonchi. Cardiovascular: Regular rate and rhythm with normal S1/S2 without murmurs, rubs or gallops. Abdomen: Soft, non-tender, non-distended with normal bowel sounds. No rebound or guarding. Musculoskeletal: No clubbing, cyanosis or edema bilaterally. Full range of motion without deformity. No cva tenderness Skin: Skin color, texture, turgor normal. No rashes or lesions. Neurologic: Neurovascularly intact without any focal sensory/motor deficits. Cranial nerves grossly intact. Labs Admission on 06/13/2024 Component Date Value AMMONIA 06/13/2024 <9 (L) THYROID STIMULATING HORM* 06/13/2024 4.152 FREE T4 06/13/2024 1.58 ABO Grouping 06/13/2024 O Antibody Screen 06/13/2024 NEG Rh Type 06/13/2024 POS PROTHROMBIN TIME 06/13/2024 13.5 (H) INR 06/13/2024 1.2 (H) APTT 06/13/2024 31.6 (H) LACTIC ACID 06/13/2024 1.4 Blood Culture 06/13/2024 Blood culture incubation started Blood Culture 06/13/2024 Blood culture incubation started SODIUM 06/13/2024 133 (L) POTASSIUM 06/13/2024 3.9 CHLORIDE 06/13/2024 95 (L) CARBON DIOXIDE 06/13/2024 36 (H) ANION GAP 06/13/2024 2 (L) UREA NITROGEN 06/13/2024 22 (H) CREATININE 06/13/2024 0.67 GLUCOSE 06/13/2024 180 (H) CALCIUM 06/13/2024 8.9 AST (SGOT) 06/13/2024 36 ALT 06/13/2024 12 ALKALINE PHOSPHATASE 06/13/2024 146 (H) ALBUMIN 06/13/2024 3.6 BILIRUBIN, TOTAL 06/13/2024 2.2 (H) TOTAL PROTEIN 06/13/2024 6.8 eGFR 06/13/2024 89.6 Heart Rate 06/13/2024 88 QRSD Interval 06/13/2024 143 QT Interval 06/13/2024 390 QTC Interval 06/13/2024 473 P [place] 06/13/2024 27 QRS [place] 06/13/2024 -24 T Wave [place] 06/13/2024 6 MO Interval 06/13/2024 167 TROPONIN I 06/13/2024 <0.012 ABO Grouping 06/13/2024 O Rh Type 06/13/2024 POS TROPONIN I 06/13/2024 0.013 Auto WBC 06/13/2024 9.5 RBC 06/13/2024 2.98 (L) Hemoglobin 06/13/2024 9.3 (L) Hematocrit 06/13/2024 27.5 (L) MCV 06/13/2024 92.3 MCH 06/13/2024 31.2 MCHC 06/13/2024 33.8 RDW 06/13/2024 13.0 Platelets 06/13/2024 191 MPV 06/13/2024 10.1 RBC Morphology 06/13/2024 Normal Neutrophils % 06/13/2024 92 (H) Bands % 06/13/2024 1 (H) Lymphocytes % 06/13/2024 2 (L) Monocytes % 06/13/2024 5 Absolute Neutrophil Count 06/13/2024 8.8 (H) Bands Absolute 06/13/2024 0.1 (H) Lymphocytes Absolute 06/13/2024 0.2 (L) Monocytes Absolute 06/13/2024 0.5 Neutrophils Manual 06/13/2024 94 Lymphocytes Manual 06/13/2024 2 Monocytes Manual 06/13/2024 5 Bands Manual 06/13/2024 1 SARS-CoV-2 06/13/2024 Detected (A) Respiratory Syncytial Vi* 06/13/2024 Not Detected Influenza A 06/13/2024 Not Detected Influenza B 06/13/2024 Not Detected EKG Encounter Date: 06/13/24 ECG 12 lead Result Value Heart Rate 88 QRSD Interval 143 QT Interval 390 QTC Interval 473 P [place] 27 QRS [place] -24 T Wave [place] 6 MO Interval 167 Impression Sinus rhythm Right bundle branch block no stemi no previous to compare Electronically Signed On 06-13-2024 23:47:57 EST by Neeru Baker Assessment/Plan and Medical Decision Making Facial bruising Left pupil slight more dilated I reviewed the ECF sheets. There is no mention of a fall. There is some labs and they are from [facility] in discussing with the patient she might have fallen over the past week and went to [facility] to be checked on. But in care everywhere I cannot find any reports of this or any images. At this time I will send her down to get a CT of her head as she also reported she had a headache Has pupil changes which I do not know if new or chronic and has evidence of bruising below her left eye. + covid Unclear symptom start date ?2-3 days ago + hypoxia in the ed + fever in the ed Lung portions of ct of abd and pelvis reviewed No definite change Start on rem/dex Admitted under isolation Infectious disease + covid Suspect urinary infection Awaiting ua + covid + fever and tachycardia She was started on the remdesivir above for COVID. Emergency room gave 1 dose of Rocephin as we are waiting to obtain a urine Suspect possible urin infection based on ct of abd and pelvis done in the ed "1. Mild bladder wall thickening, correlate for cystitis. 2. Mild left renal hydronephrosis and prominence of the right renal collecting system. There is no obstructing ureteral calculus. There is mild stranding in the fat surrounding the right kidney and abutting the right psoas muscle. Consider infectious/inflammatory process." MAR- CORE MEASURE DATA SIRS Criteria Sepsis Criteria Severe Sepsis Criteria Septic Shock Criteria Must meet 2: [x] Temperature > 100.4 F (38 C) or < 96.8 F (36 C) [x] HR > 90 [] RR > 20 [] WBC > 12 or < 4 or 10% bands Must be confirmed or suspected to move forward with diagnosis of sepsis. Must select at least one: [] Bacterial Infection Confirmed or Suspected. [x] Viral Infection Confirmed or Suspected. Infection Source: Urinary/covid [] No infection suspected Must meet 1: [] Lactate > 2 or [] Signs of Organ Dysfunction: - SBP < 90 or MAP < 65 - Altered mental status - Creatinine > 2 or increased from baseline - Urine Output < 0.5 ml/kg/hr - Bilirubin > 2 - INR > 1.5 - Platelets < 100,000 - Acute Respiratory Failure as evidenced by new need for NIPPV or mechanical ventilation . Must meet 1: [] Lactate = or > 4 or [] SBP < 90 or MAP < 65 for at least two readings in the first hour after fluid bolus administration [] No SIRS criteria met [] Only one SIRS criteria met -Patient does NOT meet full criteria for SIRS [x] Yes - Sirs Criteria Met (at least 2) Criteria for Sepsis [] No [x] Yes- meets criteria for sepsis Criteria for Severe Sepsis [x] No [] Yes- meets criteria for severe sepsis Criteria for Septic Shock [x] No . [] YES - meets criteria septic shock. [] To be determined after response to fluid bolus Fluid Resuscitation Rational: Patient does not meet criteria for Severe Sepsis or Septic Shock. 30mL/kg bolus not indicated diabetes I will continue her basal insulin at home cover with sliding scale She may need extra coverage due to receiving steroids for COVID above hypothyroidism I will continue her levothyroxine 175 mcg daily H/o cva No new symptoms noted I will continue her her atorvastatin additionally she is on aspirin and Plavix I will wait for head CT to come back before ordering the aspirin and Plavix Resume diet I discussed the need for admission with the emergency provider. -DVT prophylaxis: [x] Lovenox [] Heparin [] SCDs [x] Encourage ambulation [] Already on Anticoagulation [] Pharmocologic prophylaxis on hold to due risk bleed/procedure [] Low risk, ambulatory [] Both pharmacologic and mechanical contraindicated 62 minutes - Time spent on admission 06/14/2024 Marcia Rooney [id number] Any scheduled follow up appointments Extended Emergency Contact Information Primary Emergency Contact: Elsi Rooney Mobile Relation: [id number] Portions of this note may be electronically transcribed. Please forward a copy of this H&P to the primary care physician. documented in this encounter [facility] 06-13-2024 Emergency department Note Received report from previous RN and assumed care of pt. [facility] 06-13-2024 Emergency department Note Received report from previous RN and assumed care of pt. Emergency Department Encounter [facility] ED Patient: Marcia Rooney : 1945 Date of Evaluation: 06/13/2024 ED Supervising Physician: Rita Alex, I personally evaluated Marcia Rooney and made/approved the management plan and take responsibility for the patient management. This will serve as my Supervisory note and shared attestation. I did perform a substantive portion of the visit including all aspects of the Medical Decision Making. I wore appropriate PPE for the entirety of this encounter. In brief, Marcia Rooney is a 78 y.o. that presents to the emergency department from nursing facility for nausea and vomiting that started yesterday. FDC also reports patient's hemoglobin is around 9 but we do not have a baseline. Patient has a history of dementia and we do not know her baseline. She is oriented to person and place in the ED. Endorses nausea with vomiting and a little bit of diarrhea. Denies chest pain, dyspnea, abdominal pain or urinary symptoms. Remainder of history is limited due to patient's mental status. Focused exam: General: Alert, ill-appearing Eyes: PERRL, EOMI, Conjunctiva normal Cardiac: Regular rhythm, normal rate, +systolic murmur Lungs: No respiratory distress, lungs clear to auscultation Abdomen: Soft but distended, nontender Extremities: No peripheral edema Skin: Warm and dry, appears jaundiced Neuro: no focal deficits. Oriented to person and place. Brief ED course/MDM: 78-year-old female presenting to the ED from nursing facility for vomiting. Patient also appears confused and we are unsure what her baseline is. She is AO x 2. She appears jaundiced. We do not have prior labs for comparison therefore a broad workup was obtained including type and screen, coags, ammonia and thyroid function. Alkaline phosphatase and bilirubin mildly elevated but AST/ALT are normal. No signs of obstruction on CT. We also had to straight cath to obtain a urine sample however this was a very small sample and could only be run as a urine culture. Her CT showed concerns for pyelonephritis and patient was febrile therefore she was started on Rocephin. She also tested positive for COVID in the ED and intermittently had oxygen saturations in the low 90s therefore we will plan to admit for Decadron and remdesivir. Diagnostics interpreted by me: none I personally discussed the patient's management with other clinicians: Admitting team Hospitalist All diagnostic, treatment, and disposition decisions were made by myself in conjunction with the Resident. I also supervised powell portions of any procedures performed by the Resident. For all further details of the patient's emergency department visit, please see their documentation. (Comment: Please note this report has been produced using speech recognition software and may contain errors related to that system including errors in grammar, punctuation, and spelling, as well as words and phrases that may be inappropriate. If there are any questions or concerns please feel free to contact the dictating provider for clarification.) Rita Alex DO [employer] Rita Alex DO 06/13/242109 [facility] Complaint of nausea and vomiting for the past 2 days. Patient seems to be a poor historian. documented in this encounter [facility] 06-13-2024 Emergency department Triage note [facility]. Complaint of nausea and vomiting for the past 2 days. Patient seems to be a poor historian. [facility] 06-13-2024 Physician Emergency department Note Emergency Department Encounter [facility] ED Patient: Marcia Rooney : 1945 Date of Evaluation: 06/13/2024 ED Supervising Physician: Rita Alex DO I personally evaluated Marcia Rooney and made/approved the management plan and take responsibility for the patient management. This will serve as my Supervisory note and shared attestation. I did perform a substantive portion of the visit including all aspects of the Medical Decision Making. I wore appropriate PPE for the entirety of this encounter. In brief, Marcia Rooney is a 78 y.o. that presents to the emergency department from nursing facility for nausea and vomiting that started yesterday. [facility]DC also reports patient's hemoglobin is around 9 but we do not have a baseline. Patient has a history of dementia and we do not know her baseline. She is oriented to person and place in the ED. Endorses nausea with vomiting and a little bit of diarrhea. Denies chest pain, dyspnea, abdominal pain or urinary symptoms. Remainder of history is limited due to patient's mental status. Focused exam: General: Alert, ill-appearing Eyes: PERRL, EOMI, Conjunctiva normal Cardiac: Regular rhythm, normal rate, +systolic murmur Lungs: No respiratory distress, lungs clear to auscultation Abdomen: Soft but distended, nontender Extremities: No peripheral edema Skin: Warm and dry, appears jaundiced Neuro: no focal deficits. Oriented to person and place. Brief ED course/MDM: 78-year-old female presenting to the ED from nursing facility for vomiting. Patient also appears confused and we are unsure what her baseline is. She is AO x 2. She appears jaundiced. We do not have prior labs for comparison therefore a broad workup was obtained including type and screen, coags, ammonia and thyroid function. Alkaline phosphatase and bilirubin mildly elevated but AST/ALT are normal. No signs of obstruction on CT. We also had to straight cath to obtain a urine sample however this was a very small sample and could only be run as a urine culture. Her CT showed concerns for pyelonephritis and patient was febrile therefore she was started on Rocephin. She also tested positive for COVID in the ED and intermittently had oxygen saturations in the low 90s therefore we will plan to admit for Decadron and remdesivir. Diagnostics interpreted by me: none I personally discussed the patient's management with other clinicians: Admitting team Hospitalist All diagnostic, treatment, and disposition decisions were made by myself in conjunction with the Resident. I also supervised powell portions of any procedures performed by the Resident. For all further details of the patient's emergency department visit, please see their documentation. (Comment: Please note this report has been produced using speech recognition software and may contain errors related to that system including errors in grammar, punctuation, and spelling, as well as words and phrases that may be inappropriate. If there are any questions or concerns please feel free to contact the dictating provider for clarification.) Rita Alex DO [employer] Rita Alex DO 06/13/242109 [facility] 06-10-2024 Telephone encounter Note Summary: Event monitor Dr Rush, This patient was wearing a Event monitor and has not returned it. I called and left Messages at his home.It is Documented as Lost. If the patient still has the monitor, she can still return it and they will scan it. Thank You Carol Cerrato RN Holter Coordinator [facility] [phone] option 2 [facility] 06-10-2024 Miscellaneous Notes Summary: Event monitor Dr Rush, This patient was wearing a Event monitor and has not returned it. I called and left Messages at his home.It is Documented as Lost. If the patient still has the monitor, she can still return it and they will scan it. Thank You Carol Cerrato RN Holter Coordinator [facility] [phone] option 2 documented in this encounter [facility] 04-16-2024 Note HNO ID: [id number] Author: CHARISSE HERNANDEZ EKG Tech Service: ? Author Type: Aurist Type: Progress Notes Filed: 04/16/2024 15:31 Note Text: [facility] Marcia L Ed : 1945 Marcia Rooney here for ZIO XT (Holter) holter monitor placement on 04/16/2024 . 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 Holter serial number [id number] placed per protocol. Diary given to patient and educated on use. Patient instructed to remove monitor in 14 days and return monitor to CELENA GuilelnG Tech [facility] 04-16-2024 History of Presen t illness Narrative Images from the original note were not included. [facility] Marcia L Ed : 1945 Marcianuno Rooney here for ZIO XT (Holter) holter monitor placement on 04/16/2024 . 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 Holter serial number [id number] placed per protocol. Diary given to patient and educated on use. Patient instructed to remove monitor in 14 days and return monitor to YUNIOR Guillen documented in this encounter [facility] 04-16-2024 Note HNO ID: [id number] Author: SHOSHANA IBARRA RN Service: Care Management Author Type: Registered Nurse Type: Care Mgt Progress Note Filed: 04/16/2024 12:12 Note Text: CARE MANAGEMENT DISCHARGE NOTE SERVICE DATE: April 16, 2024 SERVICE TIME: 11:08 AM Admission Date: 04/12/2024 LOS: 0 days Discharge Arrangement Discharge Arrangement: Snf Facility Was an expedited discharge program used?: No Services Arranged [facility] facility Provider [facility] Caregiver Assessment Caregiver is ready, willing and able to meet the patient's needs as recommended by the inter-professional team: No Caregiver needed Transportation Arrangements Transportation Arrangements: Ambulance Transportation Agency and Phone #:: Rosina Eldorado [phone] Date of Trip: 04/16/24 Time of Trip: 1500 Type of Service: BLS Non-emergency Is Patient Medicaid Pending?: No Was transportation financial coverage discussed with family?: Family Gyn Location: [facility] Destination: [facility] Financial Care Management Responsibility: None Handoff Communication: Handoff to: Subway Guard;Other Caregiver Subway Guard Name/Phone: Dr Roldan Other Caregiver Name/Phone: N2N provided Additional Information: N/A Discharge Information Row Name ED to Hosp-Admission (Current) from 04/12/2024 in MR 4M CDU/OBS Snf Facility Agency [facility] Auth received this date for [facility] SNF. Patient discharged this date. Transport set 3pm via [facility] cot due to confusion and son agreeable to potential OOP cost. Son, Kwadwo, and reported HCPOA and legal NOK notified of dc. Passr done. D packet on chart with post acute checklist. Case closed. __ CM received VM from [facility] ([phone]) this date who reports patient has openm APS case. CM left VM for APS worker, vero rodriguez ([phone]) to notify of dc. SIGNATURE: Shoshana Ibarra RN PATIENT NAME: Marcia Rooney DATE: April 16, 2024 TIME: 11:08 AM CONTACT #: [id number] [facility] 04-16-2024 Note HNO ID: [id number] Author: ARELI IBARRA, Bita Service: Care Management Author Type: ? Type: Care Mgt Progress Note Filed: 04/16/2024 10:53 Note Text: [facility]) PRECERT NOTE [facility] approved Snf Facility for [facility]. Precert approved through 04/17/2024. For any additional questions regarding approvals, transport or care management needs, please contact the CM assigned to this patient in the Treatment Team. SIGNATURE: Areli Ibarra DATE: April 16, 2024 TIME: 10:52 AM [facility] 04-16-2024 Note HNO ID: [id number] Author: SHOSHANA IBARRA, ROXANNE Service: Care Management Author Type: Registered Nurse Type: Care Mgt Progress Note Filed: 04/16/2024 08:18 Note Text: CARE MANAGEMENT PROGRESS NOTE SERVICE DATE: 04/16/2024 SERVICE TIME: 8:17 AM LOS: 0 days Chart reviewed. Patient admitted from home alone for hypoglycemia. PT/OT recommending SNF. Patient confused. Only alert to self. CM called and spoke to son, Bandar, 04/14 who reports he is HCPOA. Bandar is only child so is legal NOK either way since documentation is not on chart. Per son, patient resides home alone and is unsafe at home. Patient has become increasingly confused over the past month. 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 Son agreeable to placement and states patient may likely need transition LTC. CM explained medicaid tessa process and need to discuss with CONSTRUCTION ENGINEER at facility. FOC is [facility] who is accepting. Precert still pending as of this AM 04/16. Passr done. Dc packet on chart with post acute checklist. Patient will need cot transport and son agreeable to potential OOP cost. Plan snf pending precert SIGNATURE: Shoshana Ibarra RN PATIENT NAME: Marcia Rooney DATE: April 16, 2024 TIME: 8:17 AM PAGER/CONTACT #: [phone] [facility] 04-15-2024 Note HNO ID: [id number] Author: SEBAS OLIVARES LISW Service: Care Management Author Type: Account Support Specialist Type: Care Mgt Progress Note Filed: 04/15/2024 13:38 Note Text: Summary: Progress Note CARE MANAGEMENT PROGRESS NOTE SERVICE DATE: 04/15/2024 SERVICE TIME: 1:35 PM LOS: 0 days GERIATRIC DEPRESSION SCREEN 1. Are you basically satisfied with your life? Yes 2. Have you dropped many of your activities and interests? No 3. Do you feel that your life is empty? No 4. Do you often get bored? No 5. Are you in good spirits most of the time? Yes 6. Are you afraid that something bad is going to happen to you? No 7 Do you feel happy most of the time? Yes 8 Do you often feel helpless? No 9. Do you prefer to stay home, rather than going out and doing new things? No 10. Do you feel that you have more problems with memory than most? Yes (1 point) 11. Do you think it is wonderful to be alive now? Yes 12. Do you feel worthless the way you are now? No 13. Do you feel full of energy? Yes 14. Do you feel that your situation is hopeless? No 15. Do you think that most people are better off than you are? No Total Score: 1/15 Scores greater than 5 indicate probably depression Score Result 0-4 No Depression 5-10 Suggestive of Mild Depression 11+ Suggestive of Severe Depression Pt has confusion at baseline, but able to answer the questions to the best of her ability. Pt scored 1/15 on screening indicating no concerns for geriatric depression. No SW needs identified. Pt has stroke resource book. Cm is follow for appropriate d/c planning needs. SIGNATURE: JUNI Thompson PATIENT NAME: Marcia Rooney DATE: April 15, 2024 TIME: 1:35 PM PAGER/CONTACT #: [phone] [facility] 04-15-2024 Note HNO ID: [id number] Author: SHOSHANA IBARRA RN Service: Care Management Author Type: Registered Nurse Type: Care Mgt Progress Note Filed: 04/15/2024 09:17 Note Text: CARE MANAGEMENT PROGRESS NOTE SERVICE DATE: 04/15/2024 SERVICE TIME: 9:15 AM LOS: 0 days Chart reviewed. Patient admitted from home alone for hypoglycemia. PT/OT recommending SNF. Patient confused. Only alert to self. CM called and spoke to son, Bandar, 04/14 who reports he is HCPOA. Bandra is only child so is legal NOK either way since documentation is not on chart. Per son, patient resides home alone and is unsafe at home. Patient has become increasingly confused over the past month. 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 Son agreeable to placement and states patient may likely need transition LTC. CM explained medicaid tessa process and need to discuss with CONSTRUCTION ENGINEER at facility. [facility] is [facility] who is accepting. Precert still pending. Passr done. Dc packet on chart with post acute checklist. Patient will need cot transport and son agreeable to potential OOP cost. Plan snf pending precert SIGNATURE: Shoshana Ibarra RN PATIENT NAME: Marcia Rooney DATE: April 15, 2024 TIME: 9:15 AM PAGER/CONTACT #: [phone] [facility] 04-15-2024 Note HNO ID: [id number] Author: LALITA MONTALVO MD Service: Hospital Medicine Author Type: Physician Type: Progress Notes Filed: 04/15/2024 15:09 Note Text: DEPARTMENT OF HOSPITAL MEDICINE PROGRESS NOTE SERVICE DATE: 04/15/2024 Hospital Medicine/Primary Attending: Lalita Montalvo MD CHIEF COMPLAINT: Patient 78-year-old female past medical history significant for diabetes type 2 hypothyroidism obesity dementia unable to care for self brought into the hospital for uncontrolled blood sugar. She lives by herself. Having a very difficult time controlling her diabetes. Was over 300 in the emergency room with normal anion gap. Noted for blood sugar control therapy evaluation placement possible. SUBJECTIVE: Pt seen and examined. MRI of the brain showed Small acute nonhemorrhagic white matter lacunar infarcts in the left frontal and right parietal lobes. No significant mass effect. No other acute intracranial findings. Moderate diffuse parenchymal volume loss, moderate sequela of chronic microvascular ischemia, several remote parenchymal microhemorrhages. Discussed with Dr. Ibarra neurologist. Per him the acute stroke is incidental finding. Patient symptoms are not related to that. Patient does have a history of severe hypothyroidism. 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 Patient denies any headache no chest pain no shortness of breath no nausea vomiting OBJECTIVE: PHYSICAL EXAM: BP 127/67 Pulse 58 Temp (Src) 98.2 (Oral) Resp 19 Ht 5' 7" (1.70m) Wt 184 lb 11.9 oz (83.8kg) SpO2 94% BMI 28.93 kg/(m2). O2 Therapy: Room Air General - AANDOx3, NAD, Calm HEENT complete loss of vision left eye CV - RRR S1 S2, No M/R/G RESP - CTA B/L No wheezes, ronchi, rales ABD - soft, NT, ND +BS EXT - no gross joint deformity, no clubbing, cyanosis, edema NEURO - CN II-XII grossly intact, no focal deficits MEDICATIONS: Current Facility-Administered Medications Medication Dose Route Frequency NaCl 0.9% iv flush bag 20 mL INTRAVENOUS PRN levothyroxine 150 mcg tab(s) (SYNTHROID) 150 mcg ORAL BEFORE BREAKFAST DAILY dextrose 40 % 15 g 15 g ORAL PRN Or glucagon 1 mg injection 1 mg INTRAMUSCULAR PRN Or dextrose 10% iv bolus 12.5 g INTRAVENOUS PRN insulin lispro injection (rapid acting) (ADMElog) SUBCUTANEOUS w MEALS midodrine 2.5 mg tab(s) (PROAMITINE) 2.5 mg ORAL q 8 H buPROPion XL 150 mg tab(s) (WELLBUTRIN XL) 150 mg ORAL DAILY venlafaxine ER 37.5 mg cap(s) (EFFEXOR XR) 37.5 mg ORAL DAILY NaCl 0.9% iv infusion 75 mL/hr INTRAVENOUS CONTINUOUS insulin lispro 10 Units injection (rapid acting) (ADMElog) 10 Units SUBCUTANEOUS DAILY wLUNCH insulin lispro 10 Units injection (rapid acting) (ADMElog) 10 Units SUBCUTANEOUS DAILY wDINNER insulin lispro 10 Units injection (rapid acting) (ADMElog) 10 Units SUBCUTANEOUS DAILY WITH BREAKFAST insulin glargine 28 Units pen (long acting) 28 Units SUBCUTANEOUS BID aspirin 81 mg chewable tab(s) 81 mg ORAL/FEEDING TUBE DAILY Or aspirin 300 mg suppository 300 mg RECTAL DAILY clopidogrel 75 mg tab(s) (PLAVIX) 75 mg ORAL/FEEDING TUBE DAILY atorvastatin 40 mg tab(s) (LIPITOR) 40 mg ORAL/FEEDING TUBE AT BEDTIME sodium chloride 0.9 % (flush) 2-10 mL (BD POSIFLUSH) 2-10 mL INTRAVENOUS DIRECTED PRN And perflutren lipid microspheres 1.1 mg/mL 1.3 mL injection (DEFINITY) 1.3 mL INTRAVENOUS DIRECTED PRN DATA: Diagnostic tests reviewed for today's visit: CBC: No results for input(s): "WBC", "RBC", "HB", "HCT", "PLT", "MCV", "MCH", "MPV", "RDW" in the last 24 hours. Coags: No results for input(s): "PT", "INR", "APTT" in the last 24 hours. BMP: No results for input(s): "NA", "K", "CHLOR", "CO2", "BUN", "CREAT", "GLUC" in the last 24 hours. CMP: No results for input(s): "NA", "K", "CHLOR", "CO2", "BUN", "CREAT", "GLUC", "TPROT", "CA", "MG", "ALBUMIN", "TBILI", "ALKPHOS", "ALT", "AST", "ANION" in the last 24 hours. Cardiac Enzymes: No results for input(s): "CK", "MB", "CKMB", "TROPT" in the last 24 hours. Liver Function, Amylase, Lipase: No results for input(s): "TPROT", "ALB", "ALT", "AST", "ALKPHOS", "TBILI", "AMYLASE", "LIPASE", "LACTATE" in the last 24 hours. MG/PHOS: No results for input(s): "MG", "P" in the last 24 hours. Renal Panel: No results for input(s): "ALBUMIN", "CREAT", "BUN", "GLUC", "CA", "P", "CHLOR", "K", "CO2", "NA" in the last 24 hours. Heme: No results for input(s): "RETICP", "ABSRETIC", "LD", "SULEMA", "FE", "TIBC","TRANSFERSAT" in the last 24 hours. No results found for: "UALBCR" Estimated Creatinine Clearance: 72.7 mL/min (based on SCr of 0.71 mg/dL). @[facility]@ Assessment/Plan Principal Problem: Acute CVA/acute nonhemorrhagic white matter lacunar infarcts in the left frontal and right parietal lobes initiate stroke workup neuroconsult start patient on dual antiplatelet therapy statin follow echo result order carotid ultrasound if (more content not included)... [facility] 04-15-2024 Note HNO ID: [id number] Author: GERTRUDIS CARBALLO RT(R) Service: Radiology Author Type: Technologist Type: Progress Notes Filed: 04/15/2024 08:15 Note Text: Summary: MRI Radiology Service Progress Note PATIENT NAME: Marcia Rooney DATE OF SERVICE: April 15, 2024 TIME: 8:15 AM PATIENT IDENTITY VERIFICATION COMPLETED USING TWO (2) IDENTIFIERS: Name and Date of confirmed by patient verbally and Name and Date of confirmed by identification band. FALL SCREENING: Has the patient had 2 falls in the last year or 1 fall with injury or currently using an Ambulatory Assistive Device (Walker, Cane, Wheelchair, Crutches, etc.)? Inpatient: Screened on floor PATIENT GENDER DATA: Female. status: : No status: NO. PATIENT RELEVANT IMPLANT DATA REVIEWED: Yes PATIENT PRESENTS WITH AN IMPLANTABLE OR ATTACHED PCTS: No RADIOLOGY DEPARTMENT: MR; Exam(s) Completed: Head: Routine Brain PERIPHERAL IV DATA: Not applicable SIGNED BY: RT Justina(R)(MR) April 15, 2024 8:15 AM [facility] 04-14-2024 Note HNO ID: [id number] Author: LALITA MONTALVO MD Service: Hospital Medicine Author Type: Physician Type: Progress Notes Filed: 04/14/2024 14:40 Note Text: DEPARTMENT OF HOSPITAL MEDICINE PROGRESS NOTE SERVICE DATE: 04/14/2024 SERVICE TIME: 1:47 PM Hospital Medicine/Primary Attending: Lalita Montalvo MD CHIEF COMPLAINT: Patient 78-year-old female past medical history significant for diabetes type 2 hypothyroidism obesity dementia unable to care for self brought into the hospital for uncontrolled blood sugar. She lives by herself. Having a very difficult time controlling her diabetes. Was over 300 in the emergency room with normal anion gap. Noted for blood sugar control therapy evaluation placement possible. SUBJECTIVE: Pt seen and examined. Patient reports a month ago she had a sudden complete loss of vision in her left eye. Since then she has been having frequent falls. Unable to take her medication properly because she cannot see from the left eye at all. She does walk with a walker. Lives by herself. Seen by therapy. Discussed with therapist at the bedside. She denies any headache no fevers and chills. Discharge planning discussed patient is agreeable to go to SNF rehab if indicated. OBJECTIVE: PHYSICAL EXAM: BP 131/64 Pulse 76 Temp (Src) 97.7 (Oral) Resp 18 Ht 5' 7" (1.70m) Wt 173 lb 11.2 oz (78.8kg) SpO2 94% BMI 27.20 kg/(m2). O2 Therapy: Room Air General - AANDOx3, NAD, Calm HEENT complete loss of vision left eye CV - RRR S1 S2, No M/R/G RESP - CTA B/L No wheezes, ronchi, rales ABD - soft, NT, ND +BS EXT - no gross joint deformity, no clubbing, cyanosis, edema NEURO - CN II-XII grossly intact, no focal deficits MEDICATIONS: Current Facility-Administered Medications Medication Dose Route Frequency NaCl 0.9% iv flush bag 20 mL INTRAVENOUS PRN levothyroxine 150 mcg tab(s) (SYNTHROID) 150 mcg ORAL BEFORE BREAKFAST DAILY dextrose 40 % 15 g 15 g ORAL PRN Or glucagon 1 mg injection 1 mg INTRAMUSCULAR PRN Or dextrose 10% iv bolus 12.5 g INTRAVENOUS PRN insulin lispro injection (rapid acting) (ADMElog) SUBCUTANEOUS w MEALS midodrine 2.5 mg tab(s) (PROAMITINE) 2.5 mg ORAL q 8 H buPROPion XL 150 mg tab(s) (WELLBUTRIN XL) 150 mg ORAL DAILY venlafaxine ER 37.5 mg cap(s) (EFFEXOR XR) 37.5 mg ORAL DAILY NaCl 0.9% iv infusion 75 mL/hr INTRAVENOUS CONTINUOUS insulin lispro 10 Units injection (rapid acting) (ADMElog) 10 Units SUBCUTANEOUS DAILY wLUNCH insulin lispro 10 Units injection (rapid acting) (ADMElog) 10 Units SUBCUTANEOUS DAILY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 2023, chest x-ray was unremarkable. There is tenderness in the left upper sternal region. Patient noted pain in the same area with movement of her upper extremities. At this time I feel patient is suffering from a musculoskeletal pain. At the end of the examination patient related that she did fall last week and had to crawl across the floor this may be have caused a muscle strain sprain of the area. I recommend she follow-up with the emergency room if symptoms continue for further evaluation as I cannot fully rule out other pathological processes at this time although I feel this is unlikely. Bhargav Dominguez Jr, PERSONAL LINES ACCOUNT EXECUTIVE.[facility] 09-07-2023 Note HNO ID: [id number] Author: SEBAS OLIVARES LISW Service: Care Management Author Type: Account Support Specialist Type: Care Mgt Progress Note Filed: 09/07/2023 11:18 Note Text: Summary: Discharge Note CARE MANAGEMENT DISCHARGE NOTE SERVICE DATE: 09/07/2023 SERVICE TIME: 11:17 AM LOS: 7 days IMM Follow Up Copy Given: Yes Copy given to:: Patient Method: In Person IMM reminder given to pt. No concerns voiced. SIGNATURE: JUNI Thompson PATIENT NAME: Marcia Rooney DATE: September 07, 2023 TIME: 11:17 AM PAGER/CONTACT #: [phone] [facility] 09-07-2023 Note HNO ID: [id number] Author: SEBAS OLIVARES LISW Service: Care Management Author Type: Account Support Specialist Type: Care Mgt Progress Note Filed: 09/07/2023 11:16 Note Text: Summary: Discharge Planning CARE MANAGEMENT DISCHARGE NOTE SERVICE DATE: September 07, 2023 SERVICE TIME: 11:05 AM Admission Date: 08/31/2023 LOS: 7 days Discharge Arrangement Services Arranged Provider Name: [facility] Caregiver Assessment Transportation Arrangements Transportation Arrangements: Other: See Comment (wyatt Portillo via car) Handoff Communication: Additional Information: Pt to discharge to [facility] at skilled level of care. Pt and wyatt portillo aware and in agreement. Pasrr completed, facility aware. Nurse report number given, d/c packet on chart. Son to transport pt. Case closed. Discharge Information Row Name ED to Hosp-Admission (Current) from 08/31/2023 in MR 5M PEDS/ADULT Snf Facility Agency [facility] SIGNATURE: JUNI Thompson PATIENT NAME: Marcia Rooney DATE: September 07, 2023 TIME: 11:05 AM CONTACT #: [phone] [facility] 09-07-2023 Note HNO ID: [id number] Author: ?, ?, ? Service: Care Management Author Type: ? Type: Care Mgt Progress Note Filed: 09/07/2023 09:42 Note Text: [facility] PRECERT NOTE [facility] approved Snf Facility for [facility]. Precert approved through 09/10/2023. For any additional questions regarding approvals, transport or care management needs, please contact the CM assigned to this patient in the Treatment Team. SIGNATURE: Melina Ríos DATE: September 07, 2023 TIME: 9:39 AM [facility] 09-06-2023 Note HNO ID: [id number] Author: SEBAS OLIVARES LISW Service: Care Management Author Type: Account Support Specialist Type: Care Mgt Progress Note Filed: 09/06/2023 14:32 Note Text: Summary: Discharge Planning Pt accepted at [facility] for SNF placement. Pt and son are in agreement. Pre-cert tasked to be pending. Pasrr is completed, d/c packet on chart. She will need Auth prior to discharge. Son to transport as able. Will follow for d/c planning needs as needed. [facility] 09-06-2023 Note HNO ID: [id number] Author: AARTI ORTIZ PA Service: Hospital Medicine Author Type: Physician Cvt Rn Type: Progress Notes Filed: 09/06/2023 16:36 Note Text: DEPARTMENT OF HOSPITAL MEDICINE PROGRESS NOTE SERVICE DATE: 09/05/2023 SERVICE TIME: 8:40 AM Hospital Medicine/Primary Attending: ROD Enamorado Subjective INTERVAL HPI: Pt is a 77 yo female with PMHx of TIIDM, hypothyroidism presenting after a fall at home. She was found to have L scalp hematoma. Has cisco orthostatic + despite IVF this admission, midodrine, and compression stockings. MRI brain significant for a new subdural hematoma, and neurosurgery has been consulted. Continues to deny weakness, numbness, visual deficit, dizziness, lightheadedness. She did select a rehab facility however there are no beds available so she provided TCC with additional choices. Review of Systems Eyes: Negative for visual disturbance. Respiratory: Negative for shortness of breath. Cardiovascular: Negative for chest pain. Neurological: Negative for dizziness, facial asymmetry, speech difficulty, weakness, light-headedness, numbness and headaches. MEDICATIONS: Reviewed Objective PHYSICAL EXAM: BP 134/68 Pulse 73 Temp (Src) 98.4 (Oral) Resp 19 Ht 5' 7" (1.70m) Wt 179 lb 1.6 oz (81.2kg) SpO2 92% BMI 28.04 kg/(m2). O2 Therapy: Room Air Physical Exam Constitutional: General: She is not in acute distress. Appearance: She is not ill-appearing. Comments: Pleasant cooperative elderly female sitting up in bed eating lunch, NAD. Cardiovascular: Rate and Rhythm: Normal rate and regular rhythm. Pulses: Normal pulses. Heart sounds: Normal heart sounds. Pulmonary: Effort: Pulmonary effort is normal. Breath sounds: Normal breath sounds. Abdominal: General: Bowel sounds are normal. There is no distension. Palpations: Abdomen is soft. Tenderness: There is no abdominal tenderness. Neurological: Mental Status: She is alert. Cranial Nerves: No dysarthria. Sensory: Sensation is intact. Motor: No weakness. DATA: Diagnostic tests reviewed for today's visit: Most recent labs and imaging results. CBC, Coags, BMP, Mg, Phos Recent Labs 09/06/23 0335 09/05/23 0354 09/04/23 0402 WBC 6.70 7.59 6.25 HB 11.7 11.9 12.1 HCT 35.6* 35.4* 35.4* PLT 237 233 225 NA 137 137 135* K 3.8 3.5 4.0 CHLOR 99 101 96* CO2 35* 35* 34* BUN 22 21 21 CREAT 1.02* 0.94 1.16* GLUC 183* 102* 222* CA 9.1 9.4 9.3 Liver Function, Amylase, AND Lipase Cardiac Enzymes Assessment and Plan: #Fall #Generalized Weakness #L Posterior scalp hematoma - CT showed large L posterior scalp hematoma without underlying fracture. - XR R elbow negative for Fx. XR L Kneen neg for Fx. - CT C spine without acute process. - PT/OT recommending SNF, pt agreeable. #Subdural hematoma - MRI showed a new subdural hematoma likely evolution of the left parietal scalp hematoma - Neurosurgery recommended no surgical intervention with follow-up as needed. - Neurology recommended repeat evaluation in 1 to 2 weeks for subdural hematoma as well as suspected hydrocephalus. Recommended ongoing use of midodrine. #Orthostatic Hypotension - Continue NS. - Continue midodrine 5mg q8hrs. Continue compression stockings. #TIIDM w/ hyperglycemia - Continue low dose SSI. Hypoglycemia management per protocol - Add lantus 5U to begin tonight. #Acquired Hypothyroidism - Continue home synthroid 150mcg. - Endo recommended continuing home synthroid dose. Will need to follow up with endo as OP. #Depression- Continue buproprion 150mg and venlafaxine 37.5 Medication and Non-Pharmacologic VTE Prophylaxis/Anticoagulants 09/01/23 1430 graduated compression stockings ([place]) 08/31/23 1900 vte current anticoag therapy ([place]) VTE Prophylaxis: SCDs Code Status: Full Code Disposition: Medically stable for DC to SNF pending precert I Spent over 51% of total time providing counseling or in coordination of care: > 44 minutes Plan of care discussed with: discussed with neurosurgery, discussed with TCC/CONSTRUCTION ENGINEER, discussed with RN, patient and family updated, I personally examined the patient, I personally reviewed chart data, labs, radiology reports SIGNATURE: ROD Enamorado PATIENT NAME: Marcia Rooney DATE: September 06, 2023 TIME: 8:50 AM PAGER/CONTACT #: [email or web address] [email or web address] [facility] 09-05-2023 Note HNO ID: [id number] Author: SEBAS OLIVARES LISW Service: Care Management Author Type: Account Support Specialist Type: Care Mgt Progress Note Filed: 09/05/2023 13:19 Note Text: Summary: Discharge Planning CARE MANAGEMENT PROGRESS NOTE SERVICE DATE: 09/05/2023 SERVICE TIME: 1:18 PM LOS: 5 days [place] of Choice Given: Yes Level of Care Discussed: Snf Facility Financial Disclosure Provided: Yes Provider list within the patient's requested geographic area shared with the patient/family: Yes within: 20 miles of zip code: [address] Quality and resource use metrics shared with the patient that are relevant to the patient's goals of care and treatment preferences:: Yes Pt gave choices for [facility]. Referrals placed. Will need pre-cert pending accepting facility. Will follow for d/c planning needs. SIGNATURE: JUNI Thompson PATIENT NAME: Marcia Rooney DATE: September 05, 2023 TIME: 1:18 PM PAGER/CONTACT #: [phone] [facility] 09-05-2023 Note HNO ID: [id number] Author: ZORA CLARKE RT(R) Service: ? Author Type: Technologist Type: Progress Notes Filed: 09/05/2023 11:40 Note Text: Summary: MRI Radiology Service Progress Note PATIENT NAME: Marcia Rooney DATE OF SERVICE: September 05, 2023 TIME: 11:39 AM PATIENT IDENTITY VERIFICATION COMPLETED USING TWO (2) IDENTIFIERS: Name and Date of confirmed by patient verbally and Name and Date of confirmed by identification band. FALL SCREENING: Has the patient had 2 falls in the last year or 1 fall with injury or currently using an Ambulatory Assistive Device (Walker, Cane, Wheelchair, Crutches, etc.)? Inpatient: Screened on floor PATIENT GENDER DATA: Female. status: : No status: NO. PATIENT RELEVANT IMPLANT DATA REVIEWED: Yes PATIENT PRESENTS WITH AN IMPLANTABLE OR ATTACHED PCTS: No RADIOLOGY DEPARTMENT: MR; Exam(s) Completed: Head: Routine Brain PERIPHERAL IV DATA: Not applicable SIGNED BY: Zora Clarke RT(R) September 05, 2023 11:39 AM [facility] 09-05-2023 Note HNO ID: [id number] Author: AARTI ORTIZ PA Service: Hospital Medicine Author Type: Physician Cvt Rn Type: Progress Notes Filed: 09/05/2023 18:49 Note Text: DEPARTMENT OF HOSPITAL MEDICINE PROGRESS NOTE SERVICE DATE: 09/05/2023 SERVICE TIME: 8:40 AM Hospital Medicine/Primary Attending: ROD Enamorado Subjective INTERVAL HPI: Pt is a 77 yo female with PMHx of TIIDM, hypothyroidism presenting after a fall at home. She was found to have L scalp hematoma. Has cisco orthostatic + despite IVF this admission, midodrine, and compression stockings. MRI brain is pending. Feels well today, denies weakness, numbness, visual deficit, dizziness, lightheadedness. She is agreeable to a neurosurgery consult after discussion regarding her new subdural hematoma. Review of Systems Eyes: Negative for visual disturbance. Respiratory: Negative for shortness of breath. Cardiovascular: Negative for chest pain. Neurological: Negative for dizziness, facial asymmetry, speech difficulty, weakness, light-headedness, numbness and headaches. MEDICATIONS: Reviewed Objective PHYSICAL EXAM: BP 126/61 Pulse 66 Temp (Src) 97.8 (Oral) Resp 18 Ht 5' 7" (1.70m) Wt 179 lb 12.8 oz (81.6kg) SpO2 94% BMI 28.15 kg/(m2). O2 Therapy: Room Air Physical Exam Constitutional: General: She is not in acute distress. Appearance: She is not ill-appearing. Comments: Pleasant cooperative elderly female sitting up in chair, NAD Cardiovascular: Rate and Rhythm: Normal rate and regular rhythm. Pulses: Normal pulses. Heart sounds: Normal heart sounds. Pulmonary: Effort: Pulmonary effort is normal. Breath sounds: Normal breath sounds. Abdominal: General: Bowel sounds are normal. There is no distension. Palpations: Abdomen is soft. Tenderness: There is no abdominal tenderness. Neurological: Mental Status: She is alert. Cranial Nerves: No dysarthria. Sensory: Sensation is intact. Motor: No weakness. Coordination: Ysgiwe-Qgua-Akprbo Test normal. DATA: Diagnostic tests reviewed for today's visit: Most recent labs and imaging results. CBC, Coags, BMP, Mg, Phos Recent Labs 09/05/23 0354 09/04/23 0402 WBC 7.59 6.25 HB 11.9 12.1 HCT 35.4* 35.4* PLT 233 225 NA 137 135* K 3.5 4.0 CHLOR 101 96* CO2 35* 34* BUN 21 21 CREAT 0.94 1.16* GLUC 102* 222* CA 9.4 9.3 Liver Function, Amylase, AND Lipase Cardiac Enzymes Assessment and Plan: #Fall #Generalized Weakness #L Posterior scalp hematoma - CT showed large L posterior scalp hematoma without underlying fracture. MRI brain ordered - XR R elbow negative for Fx. XR L Kneen neg for Fx. - CT C spine without acute process. - PT/OT recommending SNF, pt agreeable. #Subdural hematoma - Seen on MRI- suspected evolution of L parietal scalp hematoma - Neurosurgery consult, appreciate recs - Stop heparin, start SCDs #Orthostatic Hypotension - Despite IVF remains orthostatic. Continue NS for now. - Continue midodrine 5mg q8hrs. Continue compression stockings. #TIIDM w/ hyperglycemia - Continue low dose SSI. Hypoglycemia management per protocol #Acquired Hypothyroidism - Continue home synthroid 150mcg. - Endo consulted. Recommending continuing home synthroid dose. Will need to follow up with endo as OP. #Depression- Continue buproprion 150mg and venlafaxine 37.5 Medication and Non-Pharmacologic VTE Prophylaxis/Anticoagulants Anticoagulant AND Antiplatelet Medications (From admission, onward) Start Dose Route Frequency Last Action Ordered Stop 08/31/23 1900 heparin 5,000 Units injection 5,000 Units SUBCUTANEOUS EVERY 12 HOURS Given, 09/04 200108/31/23 1850 -- 09/01/23 1430 graduated compression stockings ([place]) 08/31/23 1900 vte current anticoag therapy ([place] VTE Prophylaxis: heparin 5000 q 12 hr Code Status: Full Code Disposition: I Spent over 51% of total time providing counseling or in coordination of care: > 42 minutes Plan of care discussed with: discussed with RN, patient and family updated, I personally examined the patient, I personally reviewed chart data, labs, radiology reports SIGNATURE: ROD Enamorado PATIENT NAME: Marcia Rooney DATE: September 05, 2023 TIME: 8:40 AM PAGER/CONTACT #: [id number] [facility] 09-04-2023 Note HNO ID: [id number] Author: SEBAS OLIVARES LISW Service: Care Management Author Type: Account Support Specialist Type: Care Mgt Initial Assessment Filed: 09/04/2023 13:15 Note Text: Summary: Discharge Planning CARE MANAGEMENT: ASSESSMENT AND DISCHARGE PLAN SERVICE DATE: September 04, 2023 SERVICE TIME: 1:08 PM PCP: FAMILY ESTEPHANIE EDGAR MD Primary Contact: Extended Emergency Contact Information Primary Emergency Contact: sparkle rooneyel Mobile Relation: Son Admission Status: Inpatient Insurance Provider: [employer] Discharge Planning requested by: Per Department Practice Potential Transition Plans Snf Facility/Intermediate Care Facility Advance Directives Current Advance Directive: Health Care Power of Information Specialist In Chart: No Current Living Arrangements and Support Lives with: Alone Type of Residence: Private Residence (House) Does the patient have to climb stairs at home?: No Support: Family members, Friends/neighbors How do you manage to accomplish the following: Independent: Ambulation;Bathe/Shower;Dress;M eals/Meal Prep;Going to the bathroom;Medication Management Needs Assistance: Transportation to appointments/community Current Services/Equipment Current Post-Acute Service(s): DME Current DME Type: Cane, Walker Discharge Planning Patient Goal(s): Other: See Comment Patient's Other Post-Acute Care Goal(s): TBD, likely snf placement [place] of Choice Explained: [place] of Choice Given: Yes Level of Care Discussed: Snf Facility Are you interested in bedside delivery of your medications? No Discharge Planning Participant(s): Patient Patient/Family Comments: Caregiver Assessment: Caregiver is ready, willing and able to meet the patient's needs as recommended by the inter-professional team: No Transport at Discharge: Transportation Arrangements: To Be Determined Needs Prior to Discharge: Needs Prior to Discharge: To Be Determined Post-Acute Discharge Plan: Patient admitted for falls,weakness with injury - subdural hematoma. Pt is a/o x3 from home alone, states son Bandar is HCPOA, but no AD paperwork on chart at this time. Pt independent with ADLs prior to admission, uses family/friends for transportation. Uses cane as needed, has walker at baseline DME. Current with PCP, active with insurance. Pt reports six falls in last two weeks, was notified of therapy recommendations and is in agreement for SNF placement. FOC list given she would like to speak with her son prior to giving choices. Will follow for choices and to send referrals, find accepting facilities and start Auth as able. Will continue to follow for d/c planning needs. SIGNATURE: JUNI Thompson PATIENT NAME: Marcia Rooney DATE: September 04, 2023 TIME: 1:08 PM CONTACT #: [phone] [facility] 09-04-2023 Note HNO ID: [id number] Author: EUGENIE VO MD Service: Hospital Medicine Author Type: Physician Type: Progress Notes Filed: 09/04/2023 15:07 Note Text: INPATIENT PROGRESS NOTE SERVICE DATE: 09/04/2023 SERVICE TIME: 11:26 AM PRIMARY SERVICE: Hospital Medicine Subjective [id number]old lady with known history of DM, hypothyroidism, depression presented after recurrent falls at home. On CT she was noted to have left scapular hematoma. Throughout the hospital stay she has been persistently orthostatic hypotensive with no improvement despite fluids, midodrine, compression stockings. She is very symptomatic with that and unclear if this might contributed to the falls. Increase her dose of midodrine today. MRI brain ordered to rule out any balancing issues. PT/OT recommended SNF. change management manager is looking into placement. INTERVAL HPI: No acute overnight events. Patient is persistently orthostatic hypotensive despite fluid resuscitation, compression stockings. Patient was evaluated at the bedside just after working with therapy and she reported that she could hardly walk due to dizziness. She also reports having some nausea. Current Facility-Administered Medications Medication Dose Route Frequency oxyCODONE IR 5 mg tab(s) (ROXICODONE) 5 mg ORAL q 4 H PRN dextrose 40 % 15 g 15 g ORAL PRN Or glucagon 1 mg injection 1 mg INTRAMUSCULAR PRN Or dextrose 10% iv bolus 12.5 g INTRAVENOUS PRN heparin 5,000 Units injection 5,000 Units SUBCUTANEOUS q 12 H NaCl 0.9% iv flush bag 20 mL INTRAVENOUS PRN bumetanide 1 mg tab(s) (BUMEX) 1 mg ORAL DAILY buPROPion XL 150 mg tab(s) (WELLBUTRIN XL) 150 mg ORAL DAILY venlafaxine ER 37.5 mg cap(s) (EFFEXOR XR) 37.5 mg ORAL DAILY levothyroxine 150 mcg tab(s) (SYNTHROID) 150 mcg ORAL BEFORE BREAKFAST DAILY ondansetron (PF) 4 mg injection (ZOFRAN) 4 mg INTRAVENOUS q 6 H PRN acetaminophen 1,000 mg tab(s) (TYLENOL) 1,000 mg ORAL q 8 H ondansetron 4 mg tab(s) (ZOFRAN) 4 mg ORAL q 6 H PRN midodrine 2.5 mg tab(s) (PROAMITINE) 2.5 mg ORAL q 8 H insulin lispro injection (rapid acting) (ADMElog) SUBCUTANEOUS w MEALS insulin lispro injection (rapid acting) (ADMElog) SUBCUTANEOUS AT BEDTIME NaCl 0.9% iv infusion 50 mL/hr INTRAVENOUS CONTINUOUS Objective PHYSICAL EXAM: BP 155/89 Pulse 87 Temp (Src) 98.2 (Oral) Resp 18 Ht 5' 7" (1.70m) Wt 179 lb 12.8 oz (81.6kg) SpO2 95% BMI 28.15 kg/(m2). O2 Therapy: Nasal Cannula, Liters: 2 Physical Exam Performed General-appears comfortable in no acute distress. Heart-normal rate and rhythm. S1 and S2 heard. No murmur/gallop/rub Lungs-clear to auscultation bilaterally. No wheezes/crackles Abdomen-soft and nontender. Normal bowel sounds. Neuro/iwuf-acmt-fyccn scalp hematoma. No active oozing. Alert and oriented x3. No gross neurological deficits. Extremities-warm and perfusing well. No pedal edema DATA: Diagnostic tests reviewed for today's visit: DATA: Recent Labs 09/04/23 1112 09/04/23 0619 09/03/23 2210 09/03/23 1559 09/03/23 1119 PCGLUCOSE 182* 258* 233* 242* 216* LABORATORY TESTS: CBC: Recent Labs 09/04/23 0402 09/02/23 0616 09/01/23 0404 08/31/23 1539 WBC 6.25 5.48 9.92 14.05* HB 12.1 12.0 12.3 13.4 PLT 225 215 238 257 MCV 91.9 94.3 94.1 93.2 NEUTP 75.2 68.1 -- 93.1 ABSNEUT 4.70 3.73 -- 13.08* LYMPHP 17.8 24.6 -- 3.8 EODINP 0.6 0.9 -- 0.0 CHEM: Recent Labs 09/04/23 0402 09/02/23 0616 09/01/23 0404 08/31/23 1539 NA 135* 137 141 139 K 4.0 4.2 3.7 3.8 CA 9.3 9.6 9.6 9.5 MG -- 2.0 2.2 2.2 ANION 5 3* 4* 7 CHLOR 96* 100 105 101 CO2 34* 34* 32 31 GLUC 222* 162* 99 94 BUN 21 20 22 22 CREAT 1.16* 0.98* 0.80 0.72 HEPATIC: Recent Labs 09/01/23 040 ALT 9* AST 25 TBILI 1.5* ALKPHOS 174* ALB 3.5 TPROT 6.2 URINALYSIS:No results for input(s): "SPGR", "UBACTERIA", "LEUKEST", "SSA", "UWBC", "URBC", "UHB", "UPROT", "UGLUC", "UKET" in the last 168 hours. Invalid input(s): "NITR" COAG: No results for input(s): "APTT", "INR" in the last 168 hours. CARDIAC: No results for input(s): "CKMB", "CKMBP", "TROPT", "PBNP" in the last 168 hours. Most recent labs and imaging results. Assessment/Plan 77-year-old lady with known history of DM type II, hypothyroidism, depression presented to the hospital after a fall at home. Noted to have left scapular hematoma. # Left posterior scalp hematoma: No drop in hemoglobin. No signs and symptoms of increased intracranial pressure. Neuroexam unremarkable. Considering orthostatic positive likely for from orthostatic hypotension. PT/OT recommended SNF [] Pain controlled with Tylenol Q8 1 g standing. [] MRI brain ordered to rule out cerebellar strokes. # Orthostatic hypotension: Positive orthostatics. No improvement with fluid resuscitation, compression stockings, low-dose midodrine. [] Increased midodrine to 5 mg 3 times daily. # Hypothyroidism: She initially had s (more content not included)... [facility] 09-04-2023 Note HNO ID: [id number] Author: FRANKO SILVA MD Service: Endocrinology Author Type: Physician Type: Progress Notes Filed: 09/04/2023 16:59 Note Text: ENDO THYROID PROGRESS NOTE SERVICE DATE: 09/04/2023 SERVICE TIME: 8:04 am REASON FOR CONSULT: Hypothyroidism REQUESTING PHYSICIAN: Dr. Vo PRIMARY CARE PHYSICIAN: [facility] Subjective Chart reviewed. Continues on home Levothyroxine dose, 150mcg daily. Patient reports no concerns today. HISTORY OF PRESENT ILLNESS: Patient is a 77-year-old female who presented to the [facility] emergency department following a fall at home. According to the patient she was using the restroom earlier that morning. Upon exiting the restroom she lost her balance and fell. She was on the ground for several hours and was unable to get up. A friend finally showed up to her residence and saw her on the ground. EMS was called. Upon arrival to the emergency department the patient was found to be hemodynamically stable. On exam a left-sided scalp hematoma was appreciated. Routine labs revealed an elevated white blood cell count of 14.05. TSH 108.45, free T4 of 0.3 on labs. Patient reports "I think I was" taking levothyroxine medication at home, unsure of dose. She was also taking Toujeo 30 units BID for management of diabetes. Managed by PCP, Dr. Isaiah Roldan. PAST MEDICAL HISTORY Diagnosis Date Diabetes (HCC) No past surgical history on file. No family history on file. Social History Tobacco Use Smoking status: Former Packs/day: .5 Types: Cigarettes Substance Use Topics Alcohol use: Not Currently Drug use: Never buPROPion XL (WELLBUTRIN XL) 150 mg 24 hr tablet, Take 150 mg by mouth once daily., Disp: , Rfl: , Unknown pioglitazone (ACTOS) 30 mg tablet, Take 30 mg by mouth once daily., Disp: , Rfl: , Unknown bumetanide (BUMEX) 1 mg tablet, Take 1 mg by mouth once daily., Disp: , Rfl: , Unknown TOUJEO SOLOSTAR U-300 INSULIN 300 unit/mL (1.5 mL), Inject 30 Units subcutaneously two times a day., Disp: , Rfl: , Unknown levothyroxine (SYNTHROID) 150 mcg tablet, Take 150 mcg by mouth daily before breakfast., Disp: , Rfl: , Unknown venlafaxine ER (EFFEXOR XR) 37.5 mg 24 hr capsule, Take 37.5 mg by mouth once daily., Disp: , Rfl: , Unknown Current Facility-Administered Medications Medication Dose Route Frequency Provider Last Rate Last Admin NaCl 0.9% iv infusion 50 mL/hr INTRAVENOUS CONTINUOUS Deejay Cuba APRN.DOCUMENTATION SPEC 50 mL/hr at 09/04/23 0638 50 mL/hr at 09/04/23 0638 ondansetron 4 mg tab(s) (ZOFRAN) 4 mg ORAL q 6 H PRN Eugenie Vo MD 4 mg at 09/03/23 1053 midodrine 2.5 mg tab(s) (PROAMITINE) 2.5 mg ORAL q 8 H Deejay Cuba APRN.DOCUMENTATION SPEC 2.5 mg at 09/03/23 2230 insulin lispro injection (rapid acting) (ADMElog) SUBCUTANEOUS w MEALS Eugenie Vo MD 6 Units at 09/04/23 0645 insulin lispro injection (rapid acting) (ADMElog) SUBCUTANEOUS AT BEDTIME Eugenie Vo MD 4 Units at 09/03/23 221 acetaminophen 1,000 mg tab(s) (TYLENOL) 1,000 mg ORAL q 8 H Eugenie Vo MD 1,000 mg at 09/04/23 06 ondansetron (PF) 4 mg injection (ZOFRAN) 4 mg INTRAVENOUS q 6 H PRN Bry Casas APRN.DOCUMENTATION SPEC 4 mg at 09/04/23 0641 oxyCODONE IR 5 mg tab(s) (ROXICODONE) 5 mg ORAL q 4 H PRN Elia Andres DO 5 mg at 09/02/23 06 dextrose 40 % 15 g 15 g ORAL PRN Elia Andres DO Or glucagon 1 mg injection 1 mg INTRAMUSCULAR PRN Elia Andres DO Or dextrose 10% iv bolus 12.5 g INTRAVENOUS PRN Elia Andres DO heparin 5,000 Units injection 5,000 Units SUBCUTANEOUS q 12 H Elia Andres DO 5,000 Units at 09/03/232212 NaCl 0.9% iv flush bag 20 mL INTRAVENOUS PRN Elia Andres DO bumetanide 1 mg tab(s) (BUMEX) 1 mg ORAL DAILY Elia Andres DO 1 mg at 09/03/23916 buPROPion XL 150 mg tab(s) (WELLBUTRIN XL) 150 mg ORAL DAILY Elia Andres DO 150 mg at 09/03/23916 venlafaxine ER 37.5 mg cap(s) (EFFEXOR XR) 37.5 mg ORAL DAILY Elia Andres DO 37.5 mg at 09/03/23916 levothyroxine 150 mcg tab(s) (SYNTHROID) 150 mcg ORAL BEFORE BREAKFAST DAILY Elia Andres DO 150 mcg at 09/04/23 06 ALLERGIES No Known Allergies REVIEW OF SYSTEMS: General: no fever, chills or acute changes in weight in the last 6 months Skin: no rashes, pruritis or dry skin Eyes: no blurred or double vision or eye pain Cardiac: denies chest pain, heart palpitations or orthopnea Pulmonary: denies wheezing, productive cough or exertional dyspnea GI: denies nausea, vomiting, diarrhea or constipation Neuro: denies numbnes/tingling in hands or feet and denies seizures Musc: denies history of upper or lower extremity weakness Endocrine: denies polyuria, polydipsia, nocturia, blurry vision or excessive fatigue Objective PHYSICAL EXAM: General: Well appearing, alert, in no acute distress, well-hydrated, well nourished. Skin: skin color, texture, turgor normal, no rashes or lesions. H (more content not included)... [facility] 09-03-2023 Note HNO ID: [id number] Author: EUGENIE VO MD Service: Hospital Medicine Author Type: Physician Type: Progress Notes Filed: 09/03/2023 16:46 Note Text: INPATIENT PROGRESS NOTE SERVICE DATE: 09/03/2023 SERVICE TIME: 4:40 PM PRIMARY SERVICE: Hospital Medicine Subjective INTERVAL HPI: No acute events overnight. Patient was evaluated at the bedside. Patient reported that she continues to have pain at the hematoma region. No other complaints. Current Facility-Administered Medications Medication Dose Route Frequency oxyCODONE IR 5 mg tab(s) (ROXICODONE) 5 mg ORAL q 4 H PRN dextrose 40 % 15 g 15 g ORAL PRN Or glucagon 1 mg injection 1 mg INTRAMUSCULAR PRN Or dextrose 10% iv bolus 12.5 g INTRAVENOUS PRN heparin 5,000 Units injection 5,000 Units SUBCUTANEOUS q 12 H NaCl 0.9% iv flush bag 20 mL INTRAVENOUS PRN bumetanide 1 mg tab(s) (BUMEX) 1 mg ORAL DAILY buPROPion XL 150 mg tab(s) (WELLBUTRIN XL) 150 mg ORAL DAILY venlafaxine ER 37.5 mg cap(s) (EFFEXOR XR) 37.5 mg ORAL DAILY levothyroxine 150 mcg tab(s) (SYNTHROID) 150 mcg ORAL BEFORE BREAKFAST DAILY ondansetron (PF) 4 mg injection (ZOFRAN) 4 mg INTRAVENOUS q 6 H PRN insulin lispro injection (rapid acting) (ADMElog) SUBCUTANEOUS w MEALS insulin lispro injection (rapid acting) (ADMElog) SUBCUTANEOUS AT BEDTIME acetaminophen 1,000 mg tab(s) (TYLENOL) 1,000 mg ORAL q 8 H ondansetron 4 mg tab(s) (ZOFRAN) 4 mg ORAL q 6 H PRN Objective PHYSICAL EXAM: BP 110/48 Pulse 78 Temp (Src) 98.6 (Oral) Resp 16 Ht 5' 7" (1.70m) Wt 180 lb 12.8 oz (82.0kg) SpO2 99% BMI 28.31 kg/(m2). O2 Therapy: Room Air Physical Exam Performed General-appears comfortable in no acute distress. Heart-normal rate and rhythm. S1 and S2 heard. No murmur/gallop/rub Lungs-clear to auscultation bilaterally. No wheezes/crackles Abdomen-soft and nontender. Normal bowel sounds. Neuro/sfum-hxyv-fvnux scalp hematoma. No active oozing. Alert and oriented x3. No gross neurological deficits. Extremities-warm and perfusing well. No pedal edema. DATA: Diagnostic tests reviewed for today's visit: DATA: Recent Labs 09/03/23 1559 09/03/23 1119 09/03/23 0608 09/02/23 2149 09/02/23 1626 PCGLUCOSE 242* 216* 236* 196* 258* LABORATORY TESTS: CBC: Recent Labs 09/02/23 0616 09/01/23 0404 08/31/23 1539 WBC 5.48 9.92 14.05* HB 12.0 12.3 13.4 PLT 215 238 257 MCV 94.3 94.1 93.2 NEUTP 68.1 -- 93.1 ABSNEUT 3.73 -- 13.08* LYMPHP 24.6 -- 3.8 EODINP 0.9 -- 0.0 CHEM: Recent Labs 09/02/23 0616 09/01/23 0404 08/31/23 1539 NA 137 141 139 K 4.2 3.7 3.8 CA 9.6 9.6 9.5 MG 2.0 2.2 2.2 ANION 3* 4* 7 CHLOR 100 105 101 CO2 34* 32 31 GLUC 162* 99 94 BUN 20 22 22 CREAT 0.98* 0.80 0.72 HEPATIC: Recent Labs 09/01/23 0404 ALT 9* AST 25 TBILI 1.5* ALKPHOS 174* ALB 3.5 TPROT 6.2 URINALYSIS:No results for input(s): "SPGR", "UBACTERIA", "LEUKEST", "SSA", "UWBC", "URBC", "UHB", "UPROT", "UGLUC", "UKET" in the last 168 hours. Invalid input(s): "NITR" COAG: No results for input(s): "APTT", "INR" in the last 168 hours. CARDIAC: No results for input(s): "CKMB", "CKMBP", "TROPT", "PBNP" in the last 168 hours. Most recent labs and imaging results. Assessment/Plan 77-year-old lady with known history of DM type II, hypothyroidism, depression presented to the hospital after a fall at home. Noted to have left scapular hematoma. # Left posterior scalp hematoma: No drop in hemoglobin. No signs and symptoms of increased intracranial pressure. Neuroexam unremarkable. Considering orthostatic positive likely for from orthostatic hypotension. OT recommended SNF [] PT evaluation pending [] Pain controlled with Tylenol Q8 1 g standing. # Orthostatic hypotension: Positive orthostatics. Put compression stockings. Repeat orthostatic vitals positive. 500 cc fluid bolus. [] Repeat orthostatics # Hypothyroidism: TSH elevated free T4 0.3. Endocrinology evaluated and recommended continuing home dose. Continue home levothyroxine 150 mcg daily. # Diabetes type 2: Continue SSI. # Depression: Continue bupropion XL 150 mg daily, venlafaxine 37.5 mg daily. Plan of care discussed with: Provider, RN, Patient. Hospital bundle: Code: Full DVT prophylaxis: Subcu heparin IVF: None Antibiotics: None Lines/tubes/drains: Peripheral IV Reason for continued hospitalization/Dispo: Pending PT eval Medication and Non-Pharmacologic VTE Prophylaxis/Anticoagulants Anticoagulant AND Antiplatelet Medications (From admission, onward) Start Dose Route Frequency Last Action Ordered Stop 08/31/23 1900 heparin 5,000 Units injection 5,000 Units SUBCUTANEOUS EVERY 12 HOURS Given, 09/03 91608/31/23 1850 -- 09/01/23 1430 graduated compression stockings ([place]) 08/31/23 1900 vte current anticoag therapy ([place]) Reason for continued hospitalization/Dispo: VTE Prophylaxis: VTE prophylaxis appropriate This note (more content not included)... [facility] 09-03-2023 Note HNO ID: [id number] Author: SEBAS OLIVARES LISW Service: Care Management Author Type: Account Support Specialist Type: Care Mgt Progress Note Filed: 09/03/2023 15:45 Note Text: Summary: Discharge Planning Unable to meet with pt today to discuss d/c planning needs. Chart reviewed Pt admitted for accidental fall,weakness,left posterior scalp hematoma Pt is from home, independent prior to admission, has transport as needed. DME unknown at this time. Current with PCP, active with insurance. Pt plan is TBD, pending therapy recommendations and further medical needs. Will follow up with pt as able to discuss dd/c planning needs as needed. [facility] 09-02-2023 Note HNO ID: [id number] Author: EUGENIE VO MD Service: Hospital Medicine Author Type: Physician Type: Progress Notes Filed: 09/02/2023 15:54 Note Text: INPATIENT PROGRESS NOTE SERVICE DATE: 09/02/2023 SERVICE TIME: 8:46 AM PRIMARY SERVICE: Hospital Medicine Subjective INTERVAL HPI: No acute overnight events. Labs unremarkable. Patient was evaluated at the bedside. Patient reported having pain in the hematoma region and making her uncomfortable to lie down on that side Current Facility-Administered Medications Medication Dose Route Frequency oxyCODONE IR 5 mg tab(s) (ROXICODONE) 5 mg ORAL q 4 H PRN acetaminophen 650 mg tab(s) (TYLENOL) 650 mg ORAL q 4 H PRN dextrose 40 % 15 g 15 g ORAL PRN Or glucagon 1 mg injection 1 mg INTRAMUSCULAR PRN Or dextrose 10% iv bolus 12.5 g INTRAVENOUS PRN insulin lispro injection (rapid acting) (ADMElog) SUBCUTANEOUS w MEALS heparin 5,000 Units injection 5,000 Units SUBCUTANEOUS q 12 H NaCl 0.9% iv flush bag 20 mL INTRAVENOUS PRN bumetanide 1 mg tab(s) (BUMEX) 1 mg ORAL DAILY buPROPion XL 150 mg tab(s) (WELLBUTRIN XL) 150 mg ORAL DAILY venlafaxine ER 37.5 mg cap(s) (EFFEXOR XR) 37.5 mg ORAL DAILY levothyroxine 150 mcg tab(s) (SYNTHROID) 150 mcg ORAL BEFORE BREAKFAST DAILY ondansetron (PF) 4 mg injection (ZOFRAN) 4 mg INTRAVENOUS q 6 H PRN Objective PHYSICAL EXAM: BP 126/60 Pulse 59 Temp (Src) 97.9 (Oral) Resp 20 Ht 5' 7" (1.70m) Wt 182 lb 6.4 oz (82.7kg) SpO2 95% BMI 28.56 kg/(m2). O2 Therapy: Room Air Physical Exam Performed General-appears comfortable in no acute distress. Heart-normal rate and rhythm. S1 and S2 heard. No murmur/gallop/rub Lungs-clear to auscultation bilaterally. No wheezes/crackles Abdomen-soft and nontender. Normal bowel sounds. Neuro/dhjy-thbz-otdwt scalp hematoma. No active oozing. Alert and oriented x3. No gross neurological deficits. Extremities-warm and perfusing well. No pedal edema. DATA: Diagnostic tests reviewed for today's visit: DATA: Recent Labs 09/02/23 0605 09/01/23 2013 09/01/23 1610 09/01/23 1119 09/01/23 0632 PCGLUCOSE 151* 127* 255* 159* 81 LABORATORY TESTS: CBC: Recent Labs 09/02/23 0616 09/01/23 0404 08/31/23 1539 WBC 5.48 9.92 14.05* HB 12.0 12.3 13.4 PLT 215 238 257 MCV 94.3 94.1 93.2 NEUTP 68.1 -- 93.1 ABSNEUT 3.73 -- 13.08* LYMPHP 24.6 -- 3.8 EODINP 0.9 -- 0.0 CHEM: Recent Labs 09/02/23 0616 09/01/23 0404 08/31/23 1539 NA 137 141 139 K 4.2 3.7 3.8 CA 9.6 9.6 9.5 MG 2.0 2.2 2.2 ANION 3* 4* 7 CHLOR 100 105 101 CO2 34* 32 31 GLUC 162* 99 94 BUN 20 22 22 CREAT 0.98* 0.80 0.72 HEPATIC: Recent Labs 09/01/23 0404 ALT 9* AST 25 TBILI 1.5* ALKPHOS 174* ALB 3.5 TPROT 6.2 URINALYSIS:No results for input(s): "SPGR", "UBACTERIA", "LEUKEST", "SSA", "UWBC", "URBC", "UHB", "UPROT", "UGLUC", "UKET" in the last 168 hours. Invalid input(s): "NITR" COAG: No results for input(s): "APTT", "INR" in the last 168 hours. CARDIAC: No results for input(s): "CKMB", "CKMBP", "TROPT", "PBNP" in the last 168 hours. Most recent labs and imaging results. Assessment/Plan 77-year-old lady with known history of DM type II, hypothyroidism, depression presented to the hospital after a fall at home. Noted to have left scapular hematoma. # Left posterior scalp hematoma: No drop in hemoglobin. No signs and symptoms of increased intracranial pressure. Neuroexam unremarkable. Considering orthostatic positive likely for from orthostatic hypotension. He OT recommended SNF [] PT evaluation pending [] Pain controlled with Tylenol Q8 1 g standing. # Orthostatic hypotension: Positive orthostatics. Put compression stockings. [] Repeat orthostatic vitals # Hypothyroidism: Bradycardia this morning will check TSH, free T4 Continue home levothyroxine 150 mcg daily. # Diabetes type 2: Based of the fingersticks insulin changed to scale 1. Closely monitor fingersticks with meals and titrate the insulin dose to prevent life-threatening hypo-/hyperglycemia. # Depression: Continue bupropion XL 150 mg daily, venlafaxine 37.5 mg daily. Plan of care discussed with: Provider, RN, Patient. Hospital bundle: Code: Full DVT prophylaxis: Subcu heparin IVF: None Antibiotics: None Lines/tubes/drains: Peripheral IV Reason for continued hospitalization/Dispo: Pending PT eval Medication and Non-Pharmacologic VTE Prophylaxis/Anticoagulants Anticoagulant AND Antiplatelet Medications (From admission, onward) Start Dose Route Frequency Last Action Ordered Stop 08/31/23 1900 heparin 5,000 Units injection 5,000 Units SUBCUTANEOUS EVERY 12 HOURS Given, 09/02 82608/31/23 1850 -- 09/01/23 1430 graduated compression stockings ([place]) 08/31/23 1900 vte current anticoag therapy ([place]) Reason for continued hospitalization/Dispo: VTE Prophylaxis: VTE prophylaxis appropriate This note was created using voice recogn (more content not included)... [facility] 09-01-2023 Note HNO ID: [id number] Author: EUGENIE VO MD Service: Hospital Medicine Author Type: Physician Type: Progress Notes Filed: 09/01/2023 12:56 Note Text: INPATIENT PROGRESS NOTE SERVICE DATE: 09/01/2023 SERVICE TIME: 12:51 PM PRIMARY SERVICE: Hospital Medicine Subjective INTERVAL HPI: No acute events overnight. Patient was evaluated at the bedside. Patient reports having slight headache from the hematoma site. No other complaints. Current Facility-Administered Medications Medication Dose Route Frequency oxyCODONE IR 5 mg tab(s) (ROXICODONE) 5 mg ORAL q 4 H PRN acetaminophen 650 mg tab(s) (TYLENOL) 650 mg ORAL q 4 H PRN dextrose 40 % 15 g 15 g ORAL PRN Or glucagon 1 mg injection 1 mg INTRAMUSCULAR PRN Or dextrose 10% iv bolus 12.5 g INTRAVENOUS PRN insulin lispro injection (rapid acting) (ADMElog) SUBCUTANEOUS w MEALS heparin 5,000 Units injection 5,000 Units SUBCUTANEOUS q 12 H NaCl 0.9% iv flush bag 20 mL INTRAVENOUS PRN bumetanide 1 mg tab(s) (BUMEX) 1 mg ORAL DAILY buPROPion XL 150 mg tab(s) (WELLBUTRIN XL) 150 mg ORAL DAILY venlafaxine ER 37.5 mg cap(s) (EFFEXOR XR) 37.5 mg ORAL DAILY levothyroxine 150 mcg tab(s) (SYNTHROID) 150 mcg ORAL BEFORE BREAKFAST DAILY Objective PHYSICAL EXAM: BP 103/62 Pulse 65 Temp (Src) 98.4 (Oral) Resp 18 Ht 5' 7" (1.70m) Wt 182 lb 6.4 oz (82.7kg) SpO2 91% BMI 28.56 kg/(m2). O2 Therapy: Room Air Physical Exam Performed General-appears comfortable in no acute distress. Heart-normal rate and rhythm. S1 and S2 heard. No murmur/gallop/rub Lungs-clear to auscultation bilaterally. No wheezes/crackles Abdomen-soft and nontender. Normal bowel sounds. Neuro/muas-pqvn-qwztq scalp hematoma. No active oozing. Alert and oriented x3. No gross neurological deficits. Extremities-warm and perfusing well. No pedal edema. DATA: Diagnostic tests reviewed for today's visit: DATA: Recent Labs 09/01/23 1119 09/01/23 0632 08/31/23 2158 PCGLUCOSE 159* 81 102* LABORATORY TESTS: CBC: Recent Labs 09/01/23 0404 08/31/23 1539 WBC 9.92 14.05* HB 12.3 13.4 PLT 238 257 MCV 94.1 93.2 NEUTP -- 93.1 ABSNEUT -- 13.08* LYMPHP -- 3.8 EODINP -- 0.0 CHEM: Recent Labs 09/01/23 0404 08/31/23 1539 NA 141 139 K 3.7 3.8 CA 9.6 9.5 MG 2.2 2.2 ANION 4* 7 CHLOR 105 101 CO2 32 31 GLUC 99 94 BUN 22 22 CREAT 0.80 0.72 HEPATIC: Recent Labs 09/01/23 0404 ALT 9* AST 25 TBILI 1.5* ALKPHOS 174* ALB 3.5 TPROT 6.2 URINALYSIS:No results for input(s): "SPGR", "UBACTERIA", "LEUKEST", "SSA", "UWBC", "URBC", "UHB", "UPROT", "UGLUC", "UKET" in the last 168 hours. Invalid input(s): "NITR" COAG: No results for input(s): "APTT", "INR" in the last 168 hours. CARDIAC: No results for input(s): "CKMB", "CKMBP", "TROPT", "PBNP" in the last 168 hours. Most recent labs and imaging results. Assessment/Plan 77-year-old lady with known history of DM type II, hypothyroidism, depression presented to the hospital after a fall at home. Noted to have left scapular hematoma. # Left posterior scalp hematoma: No drop in hemoglobin. No signs and symptoms of increased intracranial pressure. Neuroexam unremarkable. Although it appears like accidental fall will rule out orthostatic hypotension considering she had a fall when stood up from the commode. [] PT/OT evaluation. [] Pain control with Tylenol 650 every 4 hours as needed for pain, oxycodone 5 mg p.o. for moderate pain. [] Will check orthostatic vitals. # Hypothyroidism: Continue home levothyroxine 150 mcg daily. # Diabetes type 2: Continue SSI-scale 2. Closely monitor fingersticks with meals and titrate the insulin dose to prevent life-threatening hypo-/hyperglycemia. # Depression: Continue bupropion XL 150 mg daily, venlafaxine 37.5 mg daily. Plan of care discussed with: Provider, RN, Patient. Hospital bundle: Code: Full DVT prophylaxis: Subcu heparin IVF: None Antibiotics: None Lines/tubes/drains: Peripheral IV Reason for continued hospitalization/Dispo: Pending PT/OT Medication and Non-Pharmacologic VTE Prophylaxis/Anticoagulants Anticoagulant AND Antiplatelet Medications (From admission, onward) Start Dose Route Frequency Last Action Ordered Stop 08/31/23 1900 heparin 5,000 Units injection 5,000 Units SUBCUTANEOUS EVERY 12 HOURS Given, 09/01 93108/31/23 1850 -- 08/31/23 1900 vte current anticoag therapy ([place]) Reason for continued hospitalization/Dispo: VTE Prophylaxis: VTE prophylaxis appropriate This note was created using voice recognition software and is inherently subject to errors including those of syntax and "sound-alike" substitutions which may escape proofreading. In such instances, original meaning may be extrapolated by contextual derivation. The time of this note does not reflect the time I saw the patient but the time that this note was written. SIGNATURE: Eugenie Vo MD PATIENT NAME: (more content not included)... [facility] 08-31-2023 Note HNO ID: [id number] Author: ANGELINA MUNOZ RPh Service: Pharmacy Author Type: Pharmacist Type: Plan of Care Filed: 08/31/2023 19:17 Note Text: PHARMACY MEDICATION REVIEW Patient Name: Marcia Rooney : 1945 The below information represents the best possible medication history: Yes Medication history completed by: ED Pharmacist Angelina Munoz RPh Source of history: Patient: Reliability of source: Appears reliable, clearly identified: Medication name and Pharmacy records: [facility] Medication nonadherence identified: No barriers noted Preferred outpatient pharmacy: [id number] [place] [address] - [address] - [phone]) AND [facility] [address] Allergies: No Known Allergies Prior to Admission Medications Prescriptions Last Dose Informant Patient Reported? Taking? TOUJEO SOLOSTAR U-300 INSULIN 300 unit/mL (1.5 mL) Unknown Yes Yes Sig: Inject 30 Units subcutaneously two times a day. buPROPion XL (WELLBUTRIN XL) 150 mg 24 hr tablet Unknown Yes Yes Sig: Take 150 mg by mouth once daily. bumetanide (BUMEX) 1 mg tablet Unknown Yes Yes Sig: Take 1 mg by mouth once daily. levothyroxine (SYNTHROID) 150 mcg tablet Unknown Yes Yes Sig: Take 150 mcg by mouth daily before breakfast. pioglitazone (ACTOS) 30 mg tablet Unknown Yes Yes Sig: Take 30 mg by mouth once daily. venlafaxine ER (EFFEXOR XR) 37.5 mg 24 hr capsule Unknown Yes Yes Sig: Take 37.5 mg by mouth once daily. Facility-Administered Medications: None Angelina Munoz RPh 08/31/2023 [facility] Evaluation note No assessment inform ation available [facility] Work Phone: Evaluation note Diagnosis Musculoskeletal chest pain- Primary Other chest pain Chest pain on breathing Painful respiration [facility] Chest pain on breathing Painful respiration [facility] Diagnosis COVID- Primary COVID Nausea, vomiting and diarrhea Nausea with vomiting Pyelonephritis Unspecified pyelonephritis Fever, unspecified fever cause documented in this encounter [facility] for referral (narrative)* Outpatient Procedure (Routine) - Closed Specialty Diagnoses / Procedures Referred By Shelby pathak [facility] Diagnoses Chest pain on breathing Procedures ECG COMPLETE ECG ROUTINE ECG W/LEAST 12 LDS W/I&R Bhargav Dominguez Jr., PERSONAL LINES ACCOUNT EXECUTIVE.DOCUMENTATION SPEC [id number] [place] [address] [facility] [address] [place] [address] Referral ID Status Reason Start Date Expiration Date V isits Requested Visits Authorized [id number] Closed Auto-Generate d Referral 12/13/2023 12/12/2024 1 1 Electronically signed by Bhargav Dominguez Jr., PERSONAL LINES ACCOUNT EXECUTIVE.DOCUMENTATION SPEC at 12/13/2023 12:32 PM EDT [facility] for referral (narrative)No reason for referral information [facility]WB[facility] Work Phone: Summary Purpose Family History No Family History Records FoundNo Family History Records FoundNo Family History Records FoundNo Family History Records FoundNo Family History Records Found Advance Directives No Advanced Directives Records Found Date Activated Date Inactivated Comments 04/12/2024 5:47 PM 04/16/2024 6:32 PM Question Answer Comments Full Code Order Discussed With: Patient Date Activated Date Inactivated Comments 08/31/2023 7:02 PM 09/07/2023 9:55 PM Question Answer Comments Full Code Order Discussed With: Patient Date Activated Date Inactivated Comments 08/31/2023 7:02 PM 09/07/2023 9:55 PM Question Answer Comments Full Code Order Discussed With: Patient Date Activated Date Inactivated Comments 08/31/2023 7:02 PM 09/07/2023 9:55 PM Date Activated Date Inactivated Comments 04/12/2024 5:47 PM 04/16/2024 6:32 PM Date Activated Date Inactivated Comments 08/31/2023 7:02 PM 09/07/2023 9:55 PM Question Answer Comments Full Code Order Discussed With: Patient Date Activated Date Inactivated Comments 06/14/2024 1:12 AM 06/20/2024 6:38 PM Chief Complaint and Reason for Visit Chief Complaint LABWORK LABWORK Chief Complaint LABWORK LABWORK LABWORK Chief Complaint LABWORK LABWORK LABWORK LABWORK Chief Complaint Admit Date INTERMEDIATE LAB WORK June 13 5:00am LABWORK June 23, 2024 5 :00am LAB WORK June 27, 2024 5 :00am INTERMEDIATE LAB WORK August 01, 2024 5:00am INTERMEDIATE LAB WORK August 04, 2024 3:30am LABWORK August 06, 2024 5 :00am INTERMEDIATE LAB WORK August 08, 2024 5:00am INTERMEDIATE LAB WORK August 09, 2024 1:30pm INTERMEDIATE LAB WORK August 13, 2024 4:00am Chief Complaint Admit Date LABWORK June 23, 2024 5 :00am LAB WORK June 27, 2024 5 :00am INTERMEDIATE LAB WORK August 01, 2024 5:00am INTERMEDIATE LAB WORK August 04, 2024 3:30am LABWORK August 06, 2024 5 :00am INTERMEDIATE LAB WORK August 08, 2024 5:00am INTERMEDIATE LAB WORK August 09, 2024 1:30pm INTERMEDIATE LAB WORK August 13, 2024 4:00am INTERMEDIATE LAB WORK October 08, 2024 1 :20pm Additional Source Comments Source Comments (unrecognize d section and content) In the event this informatio n is protected by the Federal Confidentiality of Alcohol and Drug Abuse Patient Records regulations: The Federal rules restrict any use of the information to criminally investigate or prosecute any alcohol or drug abuse patient.[facility] the event this information is protected by the Federal Confidentiality of Alcohol and Drug Abuse Patient Records regulations: The Federal rules restrict any use of the information to criminally investigate or prosecute any alcohol or drug abuse patient.[facility] the event this information is protected by the Federal Confidentiality of Alcohol and Drug Abuse Patient Records regulations: The Federal rules restrict any use of the information to criminally investigate or prosecute any alcohol or drug abuse patient.[facility] the event this information is protected by the Federal Confidentiality of Alcohol and Drug Abuse Patient Records regulations: The Federal rules restrict any use of the information to criminally investigate or prosecute any alcohol or drug abuse patient.[facility] the event this information is protected by the Federal Confidentiality of Alcohol and Drug Abuse Patient Records regulations: The Federal rules restrict any use of the information to criminally investigate or prosecute any alcohol or drug abuse patient.[facility] the event this information is protected by the Federal Confidentiality of Alcohol and Drug Abuse Patient Records regulations: The Federal rules restrict any use of the information to criminally investigate or prosecute any alcohol or drug abuse patient.[facility] INFORMATION SOURCE (unrecogn ized section and content) DATE CREATED AUTHOR 12/12/2021 [facility] DATE CREATED AUTHOR AUTHOR'S ORGANIZ ATION 06/13/2024 [facility] DATE CREATED AUTHOR AUTHOR'S ORGANIZ ATION 07/04/2024 [facility] DATE CREATED AUTHOR AUTHOR'S ORGANIZ ATION 08/02/2024 [facility] DATE CREATED AUTHOR AUTHOR'S ORGANIZ ATION 02/16/2025 [facility] Care Teams (unrecognized sec tion and content) Team Status: Inactive Member Role Status Dates Patricio MELTON Attending Provider Active Team Status: Active Member Role Status Dates Patricio MELTON Attending Provider Active Head Grower Relationship Specialty Start Date End Date Isaiah Roldan DO [address] [facility] [address] [place] [id number] PCP - General Family Medicine 09/04/23 Head Grower Relationship Specialty Start Date End Date Isaiah Roldan DO [address] [place] [address] PCP - General Family Medicine 09/04/23 Head Grower Relationship Specialty Start Date End Date Isaiah Roldan DO [address] [place] [phone] PCP - General Family Medicine 09/04/23 Head Grower Relationship Specialty Start Date End Date Isaiah [facility]oldan [facility] [address] [facility] [address] [place] [phone] PCP - General Family Medicine 09/04/23 Team Status: Inactive Member Role Status Dates Dr. Ondina MELTON MD Attending Provider Active Start: June 13, 2024 End: June 13, 2024 Team Status: Inactive Member Role Status Dates Patricio MELTON Attending Provider Active Sta rt: June 23, 2024 End: June 23, 2024 Team Status: Active Member Role Status Dates Dr. Ondina MELTON MD Attending Provider Active Start: June 27, 2024 Team Status: Inactive Member Role Status Dates Dr. Ondina MELTON MD Attending Provider Active Start: August 01, 2024 End: August 01, 2024 Team Status: Inactive Member Role Status Dates Dr. Ondina MELTON MD Attending Provider Active Start: August 04, 2024 End: August 04, 2024 Dr. Ondina MELTON MD Referring Provider Active Start: August 04, 2024 End: August 04, 2024 Team Status: Inactive Member Role Status Dates Patricio MELTON Attending Provider Active Sta rt: August 06, 2024 End: August 06, 2024 Team Status: Active Member Role Status Dates Dr. Ondina MELTON MD Attending Provider Active Start: August 08, 2024 Team Status: Inactive Member Role Status Dates Dr. Ondina MELTON MD Attending Provider Active Start: August 09, 2024 End: August 09, 2024 Team Status: Active Member Role Status Dates Dr. Ondina MELTON MD Attending Provider Active Start: August 13, 2024 Dr. Ondina MELTON MD Referring Provider Active Start: August 13, 2024 Team Status: Inactive Member Role Status Dates Dr. Ondina MELTON MD Attending Provider Active Start: August 13, 2024 End: August 13, 2024 Dr. Ondina MELTON MD Referring Provider Active Start: August 13, 2024 End: August 13, 2024 Team Status: Inactive Member Role Status Dates Cynthia MELTON MD Attending Provider Active Start: October 08, 2024 End: October 08, 2024 Cynthia MELTON MD Referring Provider Active Start: October 08, 2024 End: October 08, 2024 Goals (unrecognized section and content) Goals may be documented in a n alternate sectionGoals may be documented in an alternate sectionGoals may be documented in an alternate sectionGoals may be documented in an alternate sectionGoals may be documented in an alternate sectionGoals may be documented in an alternate sectionGoals may be documented in an alternate section Reason for Visit (unrecogniz ed section and content) Reason Comments Chest Pain Left side of chest h as a sharp pain with movement or touch.X 1 day Specialty Diagnoses / Procedures Referred By Contac t Referred To [facility] Diagnoses Chest pain on breathing Procedures ECG COMPLETE ECG ROUTINE ECG W/LEAST 12 LDS W/I&R Bhargav Dominguez Jr., PERSONAL LINES ACCOUNT EXECUTIVE.DOCUMENTATION SPEC [address] [place] [address] [facility] [address] [place] [address] Referral ID Status Reason Start Date Expiration Date V isits Requested Visits Authorized [id number] Closed Auto-Generate d Referral 12/13/2023 12/12/2024 1 1 Specialty Diagnoses / Procedures Referred By Contac t Referred To Contact Diagnoses Hyperglycemia Procedures [address] [place] [address] IP/OBS CARE HIGH MDM 75 MINUTES Mr 4m Cdu/Obs [address] [place] [address] Referral ID Status Reason Start Date Expiration Date Visits Re quested Visits Authorized [id number] 1 1 Reason Comments Nausea Specialty Diagnoses / Procedures Referred By Contac t Referred To Contact Diagnoses Pyelonephritis Nausea, vomiting and diarrhea Fever, unspecified fever cause COVID Procedures . Mari Diaz MD [address] [place] [address] Phone: tel: fax: [facility] [place] [address] Phone: tel: Referral ID Status Reason Start Date Expiration Date Visits Re quested Visits Authorized [id number] 1 1 Scheduled Active and Recently Administ ered Medications (unrecognized section and content) Medication Order 06/18/2024 06/19/2024 06/20/2024 amoxicillin (Amoxil) capsule 500 mg 500 mg, Oral, Every 8 hours scheduled (3 times per day), First dose on 06/16/24 at 1400, For 11 days, Suspected Indication (Select all that apply): Bloodstream Infection 0601 (Given - Provider: Jose Luis Daily RN)1646 (Given - Provider: Gilbert Jackson RN)2111 (Given - Provider: Jose Luis Daily RN) 0640 (Given - Provider: Jose Luis Daily, RN)1400 (Given - Provider: Sylwia Bell RN)2056 (Given - Provider: Teresa Phelan RN) 0605 (Given - Provider: Teresa Phelan, ROXANNE)1334 (Given - Provider: Gilbert Jackson RN) atorvastatin (Lipitor) tablet 40 mg 40 mg, Oral, Daily, First dose on 06/14/24 at 0900 1117 (Given - Provider: Gilbert Jackson RN - Comment: Dr. Masoud Pan) 1018 (Given - Provider: Sylwia Bell RN) 0812 (Given - Provider: Gilbert Jackson RN) buPROPion XL (Wellbutrin XL) 24 hr tablet 150 mg 150 mg, Oral, Daily, First dose on 06/14/24 at 0900, Do not crush, chew, or split. 1117 (Given - Provider: Gilbert Jackson RN - Comment: Dr. Masoud Pan) 1018 (Given - Provider: Sylwia Bell RN) 0812 (Given - Provider: Gilbert Jackson RN) dexAMETHasone (Decadron) tablet 6 mg 6 mg, Oral, Daily, First dose on 06/14/24 at 0900, For 9 doses 1117 (Given - Provider: Gilbert Jackson RN - Comment: Dr. Masoud Pan) 1018 (Given - Provider: Sylwia Bell RN) 0812 (Given - Provider: Gilbert Jackson RN) enoxaparin (Lovenox) syringe 40 mg 40 mg, SubCUTAneous, Every 24 hours scheduled (Daily), First dose on 06/14/24 at 0900, Indication of Use: Prophylaxis-DVT/PE, Indications: Prophylaxis of Venous Thromboembolism 1117 (Given - Provider: Gilbert Jackson RN - Comment: Dr. Masoud Pan) 1019 (Given - Provider: Sylwia Bell RN) 0812 (Given - Provider: Gilbert Jackson RN) insulin glargine (Lantus) injection 30 Units 30 Units, SubCUTAneous, Daily, First dose (after last modification) on 06/15/24 at 0900 1118 (Given - Provider: Gilbert Jackson RN - Comment: Dr. Masoud Pan) 1018 (Given - Provider: Sylwia Bell RN) 0812 (Given - Provider: Gilbert Jackson RN) Insulin Lispro (Humalog) injection 0-18 Units(Linked Group 1) 0-18 Units, SubCUTAneous, 3 times daily with meals, First dose on 06/15/24 at 0830, High Dose Correction Algorithm Glucose: Dose: LESS than 150 No Insulin 150-199 3 Units 200-249 6 Units 250-299 9 Units 300-349 12 Units 350-400 15 Units Above 400 18 Units 0800 (Not Given - Provider: Gilbert Jackson RN - Reason: Other - Comment: Dr. Masoud pan.)1118 (Given - Provider: Gilbert Jackson RN - Comment: Dr. Masoud Pan)1700 (Not Given - Provider: Gilbert Jackson RN - Reason: Order parameters not met) 0800 (Not Given - Provider: Sylwia Bell RN - Reason: Order parameters not met)1359 (Given - Provider: Sylwia Bell RN)1826 (Given - Provider: Sylwia Bell RN) 0813 (Given - Provider: Gilbert Jackson RN)1200 (Not Given - Provider: Gilbert Jackson RN - Reason: Order parameters not met)1700 (Canceled Entry - Provider: Automatic Discharge Provider - Comment: Automatically canceled at discontinue of medication order) Insulin Lispro (Humalog) injection 0-18 Units(Linked Group 1) 0-18 Units, SubCUTAneous, Nightly, First dose on 06/15/24 at 2100, If eating or bolus tube feeding: High Dose Correction Algorithm Glucose: Dose: LESS than 150 No Insulin 150-199 3 Units 200-249 6 Units 250-299 9 Units 300-349 12 Units 350-400 15 Units Above 400 18 Units 0 (Given - Provider: Jose Luis Daily RN) 2054 (Given - Provider: Teresa Phelan RN) levothyroxine (Synthroid, Levoxyl) tablet 175 mcg 175 mcg, Oral, Daily before breakfast, First dose on 06/14/24 at 0615, Tube feeding (TF) interaction, obtain physician order to manage, recommend holding TF for 30 minutes before and after dose. 0601 (Given - Provider: Jose Luis Daily RN) 0640 (Given - Provider: Jose Luis Daily RN) 0605 (Given - Provider: Teresa Phelan, ROXANNE) venlafaxine XR (Effexor XR) 24 hr capsule 37.5 mg 37.5 mg, Oral, Daily, First dose on 06/14/24 at 0900, Capsule may be swallowed whole, or may be opened and its contents sprinkled on applesauce if consumed immediately without chewing. Do not crush or chew. 1117 (Given - Provider: Gilbert Jackson RN - Comment: Dr. Masoud Pan) 1018 (Given - Provider: Sylwia Bell, ORXANNE) 0812 (Given - Provider: Gilbert Jackson RN) Continuous Medication Order 06/18/2024 06/19/2024 06/20/2024 sodium chloride 0.9 % infusion 150 mL/hr, IntraVENous, Continuous, Starting on 06/14/24 at 0145 0130 (New Bag - Provider: Jose Luis Daily RN)1120 (New Bag - Provider: Gilbert Jackson RN)1839 (New Bag - Provider: Gilbert Jackson RN) 0244 (New Bag - Provider: Jose Luis Daily RN)1102 (New Bag - Provider: Sylwia Bell RN)1826 (New Bag - Provider: Sylwia Bell RN) 0332 (New Bag - Provider: Teresa Phelan, ROXANNE) PRN Medication Order 06/18/2024 06/19/2024 06/20/2024 acetaminophen (Tylenol) suppository 650 mg(Linked Group 2) 650 mg, Rectal, Every 6 hours PRN, mild pain (1-3), fever, For temp greater than 100.4 F (38 C), Starting on 06/14/24 at 0111, Administer if oral route cannot be used. Maximum dose of acetaminophen is 4000 mg from all sources in 24 hours. acetaminophen (Tylenol) tablet 650 mg(Linked Group 2) 650 mg, Oral, Every 6 hours PRN, mild pain (1-3), fever, For temp greater than 100.4 F (38 C), Starting on 06/14/24 at 0111, Maximum dose of acetaminophen is 4000 mg from all sources in 24 hours. benzonatate (Tessalon) capsule 100 mg 100 mg, Oral, 3 times daily PRN, cough, Starting on 06/14/24 at 0537, Do not crush or chew. dextrose 5 % infusion 100 mL/hr, IntraVENous, PRN, Blood sugar less than 70mg/dL, Starting on 06/14/24 at 0614, Start infusion following administration of dextrose 50% or glucagon. dextrose 50 % solution 12.5 g 12.5 g, IntraVENous, PRN, low blood sugar, Blood glucose less than 70 mg/dL and patient NOT ALERT or NPO., Starting on 06/14/24 at 0614, If patient does not respond within 5 minutes, repeat dose x1. Start D5W at 100 mL/hour until ordering provider can be reached. Repeat blood glucose in 15 minutes. If blood glucose is less than 70 mg/dL, repeat treatment and recheck blood glucose in 15 minutes x2. If using Glucostabilizer, dose as instructed per system. glucagon (human recombinant) injection 1 mg 1 mg, IntraMUSCular, PRN, low blood sugar, Blood glucose less than 70 mg/dL and patient NOT ALERT or NPO and does not have IV access., Starting on 06/14/24 at 0614, After administration, attempt intravenous access and start D5W at 100 mL/hr. Repeat blood glucose in 15 minutes x2 and notify provider. glucose oral gel 15 g 15 g, Oral, As needed, low blood sugar, Starting on 06/14/24 at 0614, If blood glucose less than 50 mg/dL and patient ALERT and NOT NPO, give 2 tubes glucose gel. If blood glucose less than 70 mg/dL and patient ALERT and NOT NPO, give 1 tube glucose gel. Repeat blood glucose in 15 minutes. If blood glucose is less than 70 mg/dL, repeat treatment and recheck blood glucose in 15 minutes x2 and notify provider. ondansetron (Zofran) injection 4 mg(Linked Group 3) 4 mg, IntraVENous, Every 6 hours PRN, nausea, vomiting, Starting on 06/14/24 at 0111, 1st Line. Give IV if patient is unable to take orally. If inadequate response within 60 minutes, proceed to next-line agent or contact provider if no further options ordered. ondansetron ODT (Zofran-ODT) disintegrating tablet 4 mg(Linked Group 3) 4 mg, Oral, Every 8 hours PRN, nausea, vomiting, Starting on 06/14/24 at 0111, 1st Line. If inadequate response within 60 minutes, proceed to next-line agent or contact provider if no further options ordered. Patient should allow tablet to dissolve on tongue. Do not remove from blister pack until just before administering. polyethylene glycol (PEG) 3350 (Miralax) packet 17 g 17 g, Oral, Daily PRN, constipation, Starting on 06/14/24 at 0111, 1st line for treatment of constipation - give scheduled if no bowel movement in past 24 hours. sodium chloride 0.9 % bolus 30 mL 30 mL, IntraVENous, at 180 mL/hr, Administer over 10 Minutes, PRN, for Remdesivir line flush, Starting on Sun06/13/24 at 2105, For 1 dose Linked Groups Order Group 1: Insulin Lispro (Humalog) injection 0-18 UnitsJump to med 0-18 Units, SubCUTAneous, 3 times daily with meals, First dose on 06/15/24 at 0830, High Dose Correction Algorithm Glucose: Dose: LESS than 150 No Insulin 150-199 3 Units 200-249 6 Units 250-299 9 Units 300-349 12 Units 350-400 15 Units Above 400 18 Units And Insulin Lispro (Humalog) injection 0-18 UnitsJump to med 0-18 Units, SubCUTAneous, Nightly, First dose on 06/15/24 at 2100, If eating or bolus tube feeding: High Dose Correction Algorithm Glucose: Dose: LESS than 150 No Insulin 150-199 3 Units 200-249 6 Units 250-299 9 Units 300-349 12 Units 350- 400 15 Units Above 400 18 Units Group 2: acetaminophen (Tylenol) tablet 650 mgJump to med 650 mg, Oral, Every 6 hours PRN, mild pain (1-3), fever, For temp greater than 100.4 F (38 C), Starting on 06/14/24 at 0111, Maximum dose of acetaminophen is 4000 mg from all sources in 24 hours. Or acetaminophen (Tylenol) suppository 650 mgJump to med 650 mg, Rectal, Every 6 hours PRN, mild pain (1-3), fever, For temp greater than 100.4 F (38 C), Starting on 06/14/24 at 0111, Administer if oral route cannot be used. Maximum dose of acetaminophen is 4000 mg from all sources in 24 hours. Group 3: ondansetron ODT (Zofran-ODT) disintegrating tablet 4 mgJump to med 4 mg, Oral, Every 8 hours PRN, nausea, vomiting, Starting on 06/14/24 at 0111, 1st Line. If inadequate response within 60 minutes, proceed to next-line agent or contact provider if no further options ordered. Patient should allow tablet to dissolve on tongue. Do not remove from blister pack until just before administering. Or ondansetron (Zofran) injection 4 mgJump to med 4 mg, IntraVENous, Every 6 hours PRN, nausea, vomiting, Starting on 06/14/24 at 0111, 1st Line. Give IV if patient is unable to take orally. If inadequate response within 60 minutes, proceed to next-line agent or contact provider if no further options ordered. FOR RECORDS PERTAINING TO PATIENTS WHO ARE OR HAVE BEEN ENROLLED IN A CHEMICAL DEPENDENCY/SUBSTANCEABUSE PROGRAM, SOME INFORMATION MAY BE OMITTED. This clinical summary was aggregated from multiple sources. Caution should be exercised in using it in the provision of clinical care. This summary normalizes information from multiple sources, and as a consequence, information in this document may materially change the coding, format and clinical context of patient data. In addition, data may be omitted in some cases. CLINICAL DECISIONS SHOULD BE BASED ON THE PRIMARY CLINICAL RECORDS. [employer] [facility]. provides no warranty or guarantee of the accuracy or completeness of information in this document.
[2025-02-20 09:07] LABS: Albumin, Serum 3.3 g/dL (3.4-4.8); Anion Gap 9 (5-15); BUN 20 mg/dL (4-19); BUN/Creat Ratio 26.1 RATIO (10-20); Calcium,Total 8.8 mg/dL (7.6-11.0); Carbon Dioxide 29.4 mmol/L (21.0-32.0); Chloride 101 mmol/L (98-108); Glucose 157 mg/dL (70-99); Potassium 3.8 mmol/L (3.3-5.1); Pro- Brain NATRIURETIC PEPTIDE 459 pg/mL (<=1800)
== END ==
LOC: OLS.SANC 05:00
DX: E11.9 Type 2 diabetes mellitus without complications (principal)
CPT/HCPCS: 36415; 80069; 83036; 83880

== ENCOUNTER → 2025-04-29 | Outpatient (REF) | payer MEDICARE, SELFPAY | LOC: OLS.SANC 05:00 | DX: E11.9 Type 2 diabetes mellitus without complications (principal) | CPT/HCPCS: 36415; 83036 ==